=== PATIENT | female | born 1950 | race Caucasian/White ===

== ENCOUNTER 2016-03-13 06:57 | Inpatient (IN) | payer OTHER ==
[2016-03-03 13:51] VITALS: BMI 27.0
--- NOTE | 2016-03-03 14:28 | PAT Medication Instructions ---
Service Date Mar 03, 2016. Current Home Medication List Albuterol Sulfate (Proair Hfa), 2 PUFFS INH QID PRN for SOB/Wheezing Ascorbic Acid (Vitamin C), 500 MG PO HS Atorvastatin (Atorvastatin Calcium), 10 MG PO HS Benzonatate (Benzonatate), 200 MG PO TID PRN for Cough Budesonide (Inhalation) (Pulmicort), 1 ML NEB BID Cholecalciferol (Vitamin D), 1,000 INTER.UNIT PO HS Cholecalciferol (Vitamin D3), 1 TAB PO QAM Furosemide (Furosemide), 20 MG PO QAM Gabapentin (Neurontin), 300 MG PO TID Guaif/Pse/Codeine (Cheratussin DAC 30-10-100 mg/5Ml), 5 ML PO TID PRN for Cough Ipratropium-Albuterol (Duoneb), 3 ML INH QID Lorazepam (Lorazepam), 1 MG PO TID PRN for Anxiety Nystatin (Nystatin Suspension), 5 ML PO QID PRN for Thrush Oxygen (Oxygen), 2 LITERS NA CONTINOUS Pantoprazole (Pantoprazole Sodium), 40 MG PO BID Potassium Ext Rel (Klor-Con), 20 MEQ PO QAM Ranitidine HCl (Ranitidine HCl), 150 MG PO BID Roflumilast (Daliresp), 1 TAB PO QAM Sertraline HCl (Sertraline HCl), 50 MG PO HS Tiotropium [place]-Olodaterol (Stiolto Respimat 2.5-2.5 Mcg/Act), Unknown Dose PO DAILY Tramadol (Ultram), 50 MG PO Q6H PRN for Pain Medication Instructions For Your Scheduled Surgery - Hold the following medications the morning of surgery: Potassium Ext Rel (Klor-Con), 20 MEQ PO QAM Nystatin (Nystatin Suspension), 5 ML PO QID PRN for Thrush Guaif/Pse/Codeine (Cheratussin DAC 30-10-100 mg/5Ml), 5 ML PO TID PRN for Cough Furosemide (Furosemide), 20 MG PO QAM Cholecalciferol (Vitamin D3), 1 TAB PO QAM Benzonatate (Benzonatate), 200 MG PO TID PRN for Cough - Take the following medications the morning of surgery with a sip of water: Tiotropium De [place]-Olodaterol (Stiolto Respimat 2.5-2.5 Mcg/Act), Unknown Dose PO DAILY Tramadol (Ultram), 50 MG PO Q6H PRN for Pain (can take up to four hours prior to surgery) Roflumilast (Daliresp), 1 TAB PO QAM Ranitidine HCl (Ranitidine HCl), 150 MG PO BID Pantoprazole (Pantoprazole Sodium), 40 MG PO BID. Oxygen (Oxygen), 2 LITERS NA CONTINOUS Lorazepam (Lorazepam), 1 MG PO TID PRN for Anxiety Ipratropium-Albuterol (Duoneb), 3 ML INH QID Gabapentin (Neurontin), 300 MG PO TID Budesonide (Inhalation) (Pulmicort), 1 ML NEB BID Albuterol Sulfate (Proair Hfa), 2 PUFFS INH QID PRN for SOB/Wheezing (bring with you to hospital on day of surgery) - Take the following medications as scheduled the night before surgery: Tramadol (Ultram), 50 MG PO Q6H PRN for Pain Sertraline HCl (Sertraline HCl), 50 MG PO HS Ranitidine HCl (Ranitidine HCl), 150 MG PO BID Pantoprazole (Pantoprazole Sodium), 40 MG PO BID Oxygen (Oxygen), 2 LITERS NA CONTINOUS Lorazepam (Lorazepam), 1 MG PO TID PRN for Anxiety Ipratropium-Albuterol (Duoneb), 3 ML INH QID Guaif/Pse/Codeine (Cheratussin DAC 30-10-100 mg/5Ml), 5 ML PO TID PRN for Cough Gabapentin (Neurontin), 300 MG PO TID Cholecalciferol (Vitamin D), 1,000 INTER.UNIT PO HS Budesonide (Inhalation) (Pulmicort), 1 ML NEB BID Benzonatate (Benzonatate), 200 MG PO TID PRN for Cough Ascorbic Acid (Vitamin C), 500 MG PO HS Atorvastatin (Atorvastatin Calcium), 10 MG PO HS Albuterol Sulfate (Proair Hfa), 2 PUFFS INH QID PRN for SOB/Wheezing If you have any questions please call us at [phone] or [phone] ( [place]) or [phone]
[2016-03-03 15:33] LABS: BASO % 0.1 %; BASO ABS # 0.01 K/uL (0-0.2); COMPLETE YES; EOS % 0.9 %; HEMATOCRIT 35.6 % (37-47); IG% 0.3 %; LYMPH % 21.9 %; LYMPH ABS # 2.58 K/uL (1.2-3.4); MEAN CORPUSCULAR HEMOGLOBIN 26.3 pg (25-34); MONO % 5.1 %; NEUT % 71.7 %; PLATELET COUNT 316 K/uL (130-400); RED BLOOD COUNT 4.34 M/uL (4.2-5.4); WHITE BLOOD COUNT 11.76 K/uL (4.8-10.8)
[~2016-03-13] VITALS: Ht 170.2 cm; Wt 78.5 kg
[2016-03-13] VITALS (10 sets, daily range): BP systolic 99–137; BP diastolic 59–81; PULSE 82–98; TEMP 36.4–37.2; O2SAT 94–98; Ht 170.2 cm; Wt 78.5 kg
[~2016-03-13 06:57] MED LIST: ALBU1AER9 INH; ASCO1CAP3 PO; ATV1 PO; BENZ100C7 PO; BUDE1SUS NEB; CEFAZOLIN 2000 MG/60 ML D5W 60 ML IV SCH; CHOL100010 PO; CHOL20007 PO; GABA-113 PO; IPRASOL4 INH; LACTATED RINGER'S 1000ML IV SCH; LPT10 PO; LSX20 PO; NYSS/ PO; OXGN; POTA20TA16 PO; PRT40 PO; RANI150T2 PO; RBTDAC5 PO; ROFL1TAB5 PO; TIOT1AER INH; TRAM-10 PO; ZLF/50 PO
[2016-03-13] MEDS ORDERED: PANT40TA PO (07:37)
[2016-03-13] MEDS ORDERED: MIDAZOLAM HCL 1 MG/ML 2ML VIAL ONE (08:41)
[2016-03-13] MEDS ORDERED: PROPOFOL IV EMULSION 10 MG/ML 20 ML VIAL IV ONE (08:41)
[2016-03-13] MEDS ORDERED: FENTANYL CITRATE INJ 50 MCG/1 ML 2 ML VIAL ONE ×2 (08:41→10:58)
[2016-03-13] MEDS ORDERED: LIDOCAINE HCL 2% 2 ML VIAL (20MG/ML) ONE (08:41)
[2016-03-13] MEDS ORDERED: PROMETHAZINE HCL INJ 6.25 MG in SODIUM CHLORIDE 0.9% 50ML 50 ML IV PRN (08:45)
[2016-03-13] MEDS ORDERED: ATROPINE SULFATE 0.1 MG/ML 5ML SYR IV PRN (08:45)
[2016-03-13] MEDS ORDERED: ONDANSETRON INJ 2 MG/ML 2 ML VIAL IV PRN ×2 (08:45→12:30)
[2016-03-13] MEDS ORDERED: EpHEDrine SULFATE INJ 50 MG/ML AMP IV PRN (08:45)
--- NOTE | 2016-03-13 08:57 | History & Physical Bridge Note ---
H&P Re-Evaluation Bridge Note: I have examined the patient, reviewed the History & Physical and in the interval since the performance of the History & Physical I have noted the following changes of clinical significance: No changes noted
[2016-03-13] MEDS ORDERED: SUCCINYLCHOLINE 100MG/5ML SYR IV ONE (09:18)
[2016-03-13] MEDS ORDERED: ONDANSETRON INJ 2 MG/ML 2 ML VIAL ONE (11:00)
[2016-03-13] MEDS ORDERED: GLYCOPYRROLATE INJ 0.2 MG/ML VIAL ONE (11:00)
[2016-03-13] MEDS ORDERED: DEXAMETHASONE SOD INJ 4 MG/ML VIAL ONE (11:00)
[2016-03-13] MEDS ORDERED: PHENYLEPHRINE 100MCG/ML 5ML SYR ONE (11:00)
[2016-03-13] MEDS ORDERED: NEOSTIGMINE METHYLSULFATE 5 MG/5 ML SYR ONE (11:00)
[2016-03-13] MEDS ORDERED: ORM MISCELLANEOUS MED XX ONE (11:52)
[2016-03-13] MEDS ORDERED: BUPIVACAINE 0.5 % 5 MG/1 ML MPF 30ML VIAL INJ ONE (12:10)
--- NOTE | 2016-03-13 12:25 | [facility] Post Operative Brief Note ---
Immediate Operative Summary Operative Date Mar 13, 2016. Pre-Operative Diagnosis Right upper quadrant pain, chronic nausea Post-Operative Diagnosis Right upper quadrant pain, chronic nausea Procedure(s) Performed Laparoscopic Cholecystectomy; Lysis of extensive adhesions Surgeon Dr. Naig Torres Home Paraprofessional Surgeon(s) none Estimated Blood Loss 15ML Findings See dictation Specimens A. Gallbladder Drains one J_P in the subhepatic space Anesthesia General Complication(s) None Disposition Recovery Room / PACU
[2016-03-13] MEDS ORDERED: NYSTATIN SUSP 500,000 U/5 ML UDC PO PRN (12:30)
[2016-03-13] MEDS ORDERED: ALBUTEROL HFA 8 GM INHALER INH PRN (12:30)
[2016-03-13] MEDS: FENTANYL CITRATE INJ 50 MCG/1 ML 2 ML VIAL IV PRN ×2 (12:52→12:57)
--- NOTE | 2016-03-13 13:25 | OPERATIVE REPORT ---
DATE OF OPERATION: 03/13/2016 PREOPERATIVE DIAGNOSIS: Dysfunctional gallbladder. POSTOPERATIVE DIAGNOSIS: Dysfunctional gallbladder with extensive intra-abdominal adhesions. PROCEDURE: Lysis of extensive intra-abdominal adhesions with laparoscopic cholecystectomy. SURGEON: Dr. Torres. DATE OF PROCEDURE: 03/13/2016. FINDINGS: The patient had had previous exploratory laparotomy a previous MARICRUZ-BSO with scar that extended from the xiphoid tip to the pubic bone. There was extensive adhesion of the omentum and in some areas of the transverse colon to the anterior abdominal wall. These extensive adhesions had to be taken down in order to access the right upper quadrant. The adhesions extended from the left upper quadrant across the midline to the right upper quadrant above the liver. They extended inferiorly at least as far as the umbilicus. The gallbladder was large and boggy. There were multiple adhesions to the wall of the gallbladder, as well as to the edge of the inferior surface of the right lobe and medial segment of the left lobe of the liver. The duodenum was extensively adhesed to the infundibulum and lower portion of the body of the gallbladder. The cystic duct was not dilated. The liver was of normal size and contour. The visible bowel appeared normal. TECHNIQUE: The patient was given a general anesthetic and the area was prepped and draped in the usual sterile fashion. A transverse incision was made in the left upper quadrant/subcostal region, carried down through the subcutaneous tissue to the fascia, which was grasped with 2 Shukri clamps and incised between. The peritoneum was identified, incised and an introducer was placed. The camera was passed, but there were clearly extensive adhesions to the anterior abdominal wall. Some of those I was able to take down using blunt dissection with my finger to establish a small open space and cavity in that area, but I was not able to identify enough of an anterior abdominal wall to be able to place another port for dissection. I then made a vertical incision small above the umbilicus, carried that down through the subcutaneous tissue to the fascia and grasped the fascia with Shukri, incised the fascia and worked inferiorly until the peritoneum was identified and incised. Then I placed a trocar in a blunt fashion there as well. A camera was passed there and I was able to enter a small cavity that had adhesions above it, but I was able to identify the anterior abdominal wall. Then working from that incision using blunt finger dissection to the incision in the left upper quadrant I was able to establish a plane in the connection by dissecting the adhesions off the anterior abdominal wall. That then allowed me to work towards the left side and divide omental adhesions to the anterior abdominal wall. The majority of these were flimsy and I was eventually able to enter a plane on the lateral left side of the abdomen that had no adhesions. After that dissection was completed, I placed another trocar under direct vision through a skin incision on the left side of the abdomen and placed a camera through there, which allowed me then to visualize much better the adhesions to the anterior abdominal wall in the midline. I placed downward traction on the omental adhesions and worked from left to right, taking down the flimsy adhesions on the mid abdomen and then worked superiorly where there were adhesions of the transverse colon. These were slightly more dense. I was able to establish a plane by dissecting the peritoneum away and bringing the peritoneum with the bowel wall for a short distance, which allowed me to then get up about those adhesions and complete that dissection. They were densely adherent to the undersurface of the falciform ligament, but at that point, I was able to visualize the anterior surface of the liver. There were additional adhesions on the right lateral abdomen that had to be taken down with sharp dissection under direct vision meticulously as to ensure that there was no colon involved, but there was not. In doing that, I was able to identify the large body fundus of the gallbladder. I was then able to place another trocar through a right upper quadrant incision that I had previously made and dissected posteriorly, but had not entered the peritoneum with that incision. At that point, I was able to identify the gallbladder and placed upward traction. However, there were dense adhesions of the omentum to the edge of the liver and those had to be taken down working from the falciform ligament over towards the right edge. Those adhesions were thick, but once they were divided, I was then able to elevate the gallbladder and take the remainder of the adhesions off the gallbladder using mostly blunt dissection. In doing so and after positioning the patient and rolling the adhesions inferiorly, it was clear that the duodenum was also adherent to the lower body and infundibular area of the gallbladder. I was able to establish a plane right at the level of the gallbladder with flimsy adhesions that were peeled down and away without using any cautery until the infundibulum was free of the duodenum. I was then able to identify the inferior most portion of the infundibulum and was able to divide additional fatty tissue and connective tissue. That allowed me to elevate the infundibulum and opened the peritoneum and peel it towards the common bile duct. I then the infundibular attachments to the liver on the lateral side allowing better mobility of the infundibulum. I performed a similar dissection on the medial side and in doing so, was able to identify the cystic duct and its junction with the gallbladder. I dissected away connective tissue and lymphatics on the medial wall of the cystic duct, and then was able to establish a plane behind the cystic duct isolating it 360 degrees. That confirmed the junction of the cystic duct and gallbladder. Three clips were placed on the proximal cystic duct, one near the junction with the gallbladder and it was divided. At that point, one of the graspers created a hole in the gallbladder and there was bile that escaped the gallbladder. This was all removed with suction. But that allowed me then to further dissect in the triangle of Calot. The cystic artery was identified, clipped twice proximally and once near the gallbladder and divided. There was an additional tubular structure behind that that was either a large lymphatic or a posterior branch of the artery that was clipped and divided. That then allowed good mobility of the infundibulum and I was able to dissect the gallbladder off the liver using cautery. It was placed into an Endobag and brought out through the upper midline incision. That introducer was replaced and the liver edge was elevated. There was 1 small area of oozing from the gallbladder bed of the liver and this was easily controlled with cautery. The subdiaphragmatic and subhepatic spaces were irrigated and the irrigation was removed. All of the areas of dissection were inspected. There was no bleeding. A 10 mm Jerad-Parson drain was brought out through the right-sided upper introducer site. It had been previously cut to size and was placed in the subhepatic space and secured with a 3-0 nylon at the skin level. The gas was allowed to escape and the introducers were removed. The fascia of the supraumbilical upper midline on the left and the left-sided introducers were closed with interrupted 0 Vicryl and the skin of all of the incisions was then closed with 4-0 Monocryl in either a running or interrupted subcuticular fashion. The skin was anesthetized with 0.5% Marcaine. The skin was cleansed, dried, benzoin placed, Steri-Strips applied. The estimated blood loss was 15 mL. Sponge, needle, and instrument counts were correct prior to closure. The patient tolerated the surgical procedure without complication and was transferred to recovery. I attest to the content of the Intraoperative Record and any orders documented therein. Any exceptio ns are noted below.
[2016-03-13] MEDS ORDERED: IV FLUIDS COMPLETED PRN (13:45)
--- NOTE | 2016-03-13 13:46 | Anesthesiology Progress Note ---
Anesthesia Post Op Note Date & Time Mar 13, 2016 at 13:45 Vital Signs Pain Intensity: 0 Vital Signs Past 12 Hours Date Time Temp Pulse Resp B/P Pulse Ox O2 Delivery O2 Flow Rate FiO2 03/13/16 13:40 36.5 89 16 112/66 97 Nasal Cannula 4 03/13/16 13:30 36.5 89 16 111/69 96 Nasal Cannula 4 03/13/16 13:20 36.5 91 16 115/78 100 Nasal Cannula 4 03/13/16 13:10 36.5 95 16 124/75 99 Nasal Cannula 4 03/13/16 13:00 92 16 112/72 96 Nasal Cannula 4 03/13/16 12:50 94 16 126/72 100 Nasal Cannula 4 03/13/16 12:40 93 16 124/83 100 Mask 15 03/13/16 12:30 92 16 152/85 100 Mask 15 03/13/16 12:23 37.5 100 16 135/82 100 Mask 15 03/13/16 07:42 37.2 98 20 137/81 94 Room Air Notes Mental Status: alert / awake / arousable, participated in evaluation Pt Amnestic to Procedure: Yes Nausea / Vomiting: adequately controlled Pain: adequately controlled Airway Patency, RR, SpO2: stable & adequate BP & HR: stable & adequate Hydration State: stable & adequate Anesthetic Complications: no major complications apparent
[2016-03-13] MEDS: MoRPHine SULFATE 4 MG/ML 1 ML CARP\\VIAL IV PRN ×3 (15:31→21:14)
[2016-03-13] MEDS: SODIUM CHLORIDE 0.9% 1000ML 1,000 ML IV SCH (15:32)
[2016-03-13] MEDS: ALBUT/IPRATROP 3MG/0.5MG NEB 3 ML VIAL INH SCH ×2 (16:30→20:11)
[2016-03-13] MEDS: OXYCODONE/ACETAMINOPHEN 5-325 TAB PO PRN (19:30)
[2016-03-13] MEDS: BUDESONIDE 0.5 MG/2 ML VIAL (PULMICORT) INH SCH (20:11)
[2016-03-13] MEDS: PANTOprazole SOD 40 MG TAB PO SCH (20:22)
[2016-03-13] MEDS: GABAPENTIN 300 MG CAP PO SCH (20:22)
[2016-03-13] MEDS: SERTRALINE HCL 50 MG TAB PO SCH (20:22)
[2016-03-13] MEDS: ATORVASTATIN 10 MG TAB PO SCH (20:22)
[2016-03-13] MEDS: RANITIDINE HCL 150 MG TAB PO SCH (20:22)
[2016-03-14] VITALS (12 sets, daily range): BP systolic 94–106; BP diastolic 56–66; PULSE 79–96; TEMP 36.7–36.9; O2SAT 83–97
[2016-03-14] MEDS: MoRPHine SULFATE 4 MG/ML 1 ML CARP\\VIAL IV PRN ×2 (01:25→19:07)
[2016-03-14] MEDS: OXYCODONE/ACETAMINOPHEN 5-325 TAB PO PRN ×3 (08:00→21:08)
[2016-03-14] MEDS: BUDESONIDE 0.5 MG/2 ML VIAL (PULMICORT) INH SCH ×2 (08:09→20:18)
[2016-03-14] MEDS: ALBUT/IPRATROP 3MG/0.5MG NEB 3 ML VIAL INH SCH ×4 (08:09→20:18)
--- NOTE | 2016-03-14 08:09 | Anesthesiology Progress Note ---
Anesthesia Post Op Note Date & Time Mar 14, 2016 at 08:08 Vital Signs Pain Intensity: 8.0 Vital Signs Past 12 Hours Date Time Temp Pulse Resp B/P Pulse Ox O2 Delivery O2 Flow Rate FiO2 03/14/16 07:09 36.9 82 16 98/61 96 Nasal Cannula 3.0 03/14/16 03:35 36.7 79 16 94/56 97 Nasal Cannula 3.0 03/13/16 23:35 Nasal Cannula 3.0 03/13/16 22:56 36.8 82 16 99/59 96 Nasal Cannula 3.0 03/13/16 20:11 92 16 98 Nasal Cannula 3.0 Notes Mental Status: alert / awake / arousable, participated in evaluation Pt Amnestic to Procedure: Yes Nausea / Vomiting: adequately controlled Pain: adequately controlled Airway Patency, RR, SpO2: stable & adequate BP & HR: stable & adequate Hydration State: stable & adequate Anesthetic Complications: no major complications apparent
[2016-03-14] MEDS: RANITIDINE HCL 150 MG TAB PO SCH ×2 (09:33→21:07)
[2016-03-14] MEDS: CHOLECALCIFEROL 1000 INTER.UNIT TAB PO SCH (09:33)
[2016-03-14] MEDS: PANTOprazole SOD 40 MG TAB PO SCH ×2 (09:34→21:07)
[2016-03-14] MEDS: GABAPENTIN 300 MG CAP PO SCH ×3 (09:34→21:07)
[2016-03-14] MEDS: POTASSIUM CHLORIDE 20 MEQ TABCR PO SCH (09:35)
[2016-03-14] MEDS: ROFLUMILAST 500 MCG TAB PO SCH (09:35)
[2016-03-14] MEDS: FUROSEMIDE 20 MG TAB PO SCH (09:37)
[2016-03-14] MEDS: LORAZEPAM 1 MG TAB PO PRN ×2 (09:39→21:07)
--- NOTE | 2016-03-14 11:02 | Surgery Progress Note ---
Surgery Progress Note Date of Service Mar 14, 2016. Subjective Post OP Day: 1 + pain controlled, No bowel movement, No flatus, No nausea, No vomiting Objective Vital Signs: Date Time Temp Pulse Resp B/P Pulse Ox O2 Delivery O2 Flow Rate FiO2 03/14/16 09:37 100/60 03/14/16 08:10 89 18 89 Room Air 03/14/16 07:09 36.9 82 16 98/61 96 Nasal Cannula 3.0 03/14/16 03:35 36.7 79 16 94/56 97 Nasal Cannula 3.0 03/13/16 23:35 Nasal Cannula 3.0 03/13/16 22:56 36.8 82 16 99/59 96 Nasal Cannula 3.0 03/13/16 20:11 92 16 98 Nasal Cannula 3.0 03/13/16 19:08 36.6 85 18 107/64 96 Nasal Cannula 3.0 03/13/16 17:30 36.4 86 18 105/72 96 Nasal Cannula 3.0 03/13/16 16:35 88 16 97 Nasal Cannula 3.0 03/13/16 16:30 37.1 91 17 104/64 94 Nasal Cannula 3.0 03/13/16 16:00 Nasal Cannula 2.0 03/13/16 15:30 36.8 89 17 109/71 94 Nasal Cannula 3.0 03/13/16 15:00 36.4 85 17 115/75 97 Nasal Cannula 3.0 03/13/16 14:50 36.9 90 124/73 95 Nasal Cannula 3.0 03/13/16 14:49 Nasal Cannula 3.0 03/13/16 14:10 36.5 88 16 111/76 98 Nasal Cannula 4 03/13/16 13:55 36.5 90 16 120/71 98 Nasal Cannula 4 03/13/16 13:40 36.5 89 16 112/66 97 Nasal Cannula 4 03/13/16 13:30 36.5 89 16 111/69 96 Nasal Cannula 4 03/13/16 13:20 36.5 91 16 115/78 100 Nasal Cannula 4 03/13/16 13:10 36.5 95 16 124/75 99 Nasal Cannula 4 03/13/16 13:00 92 16 112/72 96 Nasal Cannula 4 03/13/16 12:50 94 16 126/72 100 Nasal Cannula 4 03/13/16 12:40 93 16 124/83 100 Mask 15 03/13/16 12:30 92 16 152/85 100 Mask 15 03/13/16 12:23 37.5 100 16 135/82 100 Mask 15 Physical Exam: DELMIS drainage (45 cc yesterday, 10 cc last shift, serosanguinous) Abdomen: non distended, + abnormal bowel sounds (few) Incision(s): clean, dry, no drainage Assessment & Plan S/P laparoscopic cholecystectomy Doing well Advance diet
[2016-03-14] MEDS: SODIUM CHLORIDE 0.9% 1000ML 1,000 ML IV SCH (13:34)
[2016-03-14] MEDS: ATORVASTATIN 10 MG TAB PO SCH (21:07)
[2016-03-14] MEDS: SERTRALINE HCL 50 MG TAB PO SCH (21:07)
[2016-03-15] VITALS (9 sets, daily range): BP systolic 100–120; BP diastolic 65–74; PULSE 86–110; TEMP 36.7–36.9; O2SAT 90–98
[2016-03-15] MEDS: MoRPHine SULFATE 4 MG/ML 1 ML CARP\\VIAL IV PRN ×2 (06:02→21:59)
[2016-03-15] MEDS: OXYCODONE/ACETAMINOPHEN 5-325 TAB PO PRN ×2 (07:23→13:05)
--- NOTE | 2016-03-15 07:37 | Surgery Progress Note ---
Surgery Progress Note Date of Service Mar 15, 2016. Subjective + complaints (buring in upper midline), + diet (tolerated regular diet), No bowel movement, No flatus, No nausea, No vomiting Objective Vital Signs: Date Time Temp Pulse Resp B/P Pulse Ox O2 Delivery O2 Flow Rate FiO2 03/15/16 00:10 Nasal Cannula 2.0 03/14/16 23:14 36.9 96 15 102/62 96 Nasal Cannula 2.0 03/14/16 20:19 96 16 96 Nasal Cannula 2.0 03/14/16 19:15 94 Nasal Cannula 2.0 03/14/16 19:00 83 Room Air 03/14/16 16:01 86 16 97 Nasal Cannula 2.0 03/14/16 15:30 Room Air 03/14/16 15:14 36.8 87 16 106/66 93 Room Air 03/14/16 11:31 36.7 87 16 98/56 90 Room Air 03/14/16 11:13 94 18 97 Nasal Cannula 3.0 03/14/16 09:37 100/60 03/14/16 08:10 89 18 89 Room Air 03/14/16 07:55 Nasal Cannula 3.0 Abdomen: soft, + abnormal bowel sounds (few), + tenderness (incisional only) Assessment & Plan S/P laparoscopic cholecystectomy Burning upper abdomen, start Protonix Constipation, Start MOM Ambulate
[2016-03-15] MEDS: BUDESONIDE 0.5 MG/2 ML VIAL (PULMICORT) INH SCH ×2 (08:06→20:48)
[2016-03-15] MEDS: ALBUT/IPRATROP 3MG/0.5MG NEB 3 ML VIAL INH SCH ×4 (08:06→20:48)
[2016-03-15] MEDS ORDERED: NURSING VERBAL MED ORDER ONE (08:15)
[2016-03-15] MEDS: ROFLUMILAST 500 MCG TAB PO SCH (08:30)
[2016-03-15] MEDS ORDERED: GUAIFENESIN SUGAR FREE 200 MG/10 ML UDC PO PRN (08:30)
[2016-03-15] MEDS: FUROSEMIDE 20 MG TAB PO SCH (08:31)
[2016-03-15] MEDS: GABAPENTIN 300 MG CAP PO SCH ×3 (08:31→20:49)
[2016-03-15] MEDS: POTASSIUM CHLORIDE 20 MEQ TABCR PO SCH (08:31)
[2016-03-15] MEDS: CHOLECALCIFEROL 1000 INTER.UNIT TAB PO SCH (08:32)
[2016-03-15] MEDS: PANTOprazole SOD 40 MG TAB PO SCH (08:35)
[2016-03-15] MEDS: MAGNESIUM HYDROXIDE SUSP 30 ML UDC PO PRN (08:36)
[2016-03-15] MEDS: LORAZEPAM 1 MG TAB PO PRN ×2 (08:38→20:51)
[2016-03-15] MEDS: RANITIDINE HCL 150 MG TAB PO SCH ×2 (09:28→20:49)
[2016-03-15] MEDS: GUAIFENESIN SUGAR FREE 200 MG/10 ML UDC PO PRN ×2 (09:29→17:53)
[2016-03-15] MEDS: SODIUM CHLORIDE 0.9% 1000ML 1,000 ML IV SCH (12:46)
[2016-03-15] MEDS: ATORVASTATIN 10 MG TAB PO SCH (20:49)
[2016-03-15] MEDS: SERTRALINE HCL 50 MG TAB PO SCH (20:49)
[2016-03-16] VITALS (10 sets, daily range): BP systolic 103–117; BP diastolic 67–69; PULSE 86–97; TEMP 36.8–37.6; O2SAT 84–99
[2016-03-16] MEDS: OXYCODONE/ACETAMINOPHEN 5-325 TAB PO PRN ×2 (05:59→23:29)
[2016-03-16] MEDS: GUAIFENESIN SUGAR FREE 200 MG/10 ML UDC PO PRN ×2 (06:28→20:36)
[2016-03-16] MEDS: BUDESONIDE 0.5 MG/2 ML VIAL (PULMICORT) INH SCH ×2 (07:56→20:15)
[2016-03-16] MEDS: ALBUT/IPRATROP 3MG/0.5MG NEB 3 ML VIAL INH SCH ×4 (07:57→16:03)
[2016-03-16] MEDS: ROFLUMILAST 500 MCG TAB PO SCH (08:30)
[2016-03-16] MEDS: PANTOprazole SOD 40 MG TAB PO SCH (08:31)
[2016-03-16] MEDS: POTASSIUM CHLORIDE 20 MEQ TABCR PO SCH (08:31)
[2016-03-16] MEDS: GABAPENTIN 300 MG CAP PO SCH ×3 (08:31→20:36)
[2016-03-16] MEDS: CHOLECALCIFEROL 1000 INTER.UNIT TAB PO SCH (08:32)
[2016-03-16] MEDS: RANITIDINE HCL 150 MG TAB PO SCH ×2 (08:32→20:36)
[2016-03-16] MEDS: FUROSEMIDE 20 MG TAB PO SCH (08:33)
[2016-03-16] MEDS: LORAZEPAM 1 MG TAB PO PRN ×2 (08:35→20:36)
[2016-03-16] MEDS: SODIUM CHLORIDE 0.9% 1000ML 1,000 ML IV SCH (12:30)
--- NOTE | 2016-03-16 13:45 | Surgery Progress Note ---
Surgery Progress Note Date of Service Mar 16, 2016. Subjective Post OP Day: 3 + diet (tolerated diet), + flatus (small amount), No bowel movement, No nausea, No vomiting Objective Vital Signs: Date Time Temp Pulse Resp B/P Pulse Ox O2 Delivery O2 Flow Rate FiO2 03/16/16 12:08 36.9 94 12 110/68 97 Nasal Cannula 2.0 03/16/16 11:28 92 20 84 Room Air 03/16/16 08:32 110/67 03/16/16 07:58 87 16 90 Nasal Cannula 2.0 03/16/16 07:45 Nasal Cannula 2.0 03/16/16 07:11 37.6 94 16 103/67 92 Room Air 03/15/16 23:27 Nasal Cannula 2.0 03/15/16 23:26 36.9 99 16 111/72 96 Nasal Cannula 2.0 03/15/16 20:48 110 20 93 Room Air 03/15/16 15:32 95 16 96 Nasal Cannula 2.0 03/15/16 15:23 36.7 89 18 100/65 97 Nasal Cannula 2.0 03/15/16 15:15 Room Air Abdomen: normal bowel sounds, non tender, non distended, soft Incision(s): clean, dry, intact, no erythema Assessment & Plan S/P laparoscopic cholecystectomy Burning upper abdomen resolved, start Protonix Constipation, no bm as yet, more MOM Ambulate
[2016-03-16] MEDS: MAGNESIUM HYDROXIDE SUSP 30 ML UDC PO PRN (13:50)
[2016-03-16] MEDS ORDERED: NURSING VERBAL MED ORDER ONE (14:00)
[2016-03-16] MEDS: SERTRALINE HCL 50 MG TAB PO SCH (20:36)
[2016-03-16] MEDS: ATORVASTATIN 10 MG TAB PO SCH (20:36)
[2016-03-16] MEDS: MoRPHine SULFATE 4 MG/ML 1 ML CARP\\VIAL IV PRN (20:42)
[2016-03-17 07:07] VITALS: BP 128/68; PULSE 83; TEMP 36.7; O2SAT 100
[2016-03-17 07:14] VITALS: PULSE 93; O2SAT 100
[2016-03-17] MEDS: BUDESONIDE 0.5 MG/2 ML VIAL (PULMICORT) INH SCH (07:14)
[2016-03-17] MEDS: ALBUT/IPRATROP 3MG/0.5MG NEB 3 ML VIAL INH SCH ×3 (07:14→16:00)
[2016-03-17] MEDS: MAGNESIUM HYDROXIDE SUSP 30 ML UDC PO PRN (07:30)
[2016-03-17] MEDS: GUAIFENESIN SUGAR FREE 200 MG/10 ML UDC PO PRN (07:32)
[2016-03-17] MEDS: POTASSIUM CHLORIDE 20 MEQ TABCR PO SCH (08:46)
[2016-03-17] MEDS: ROFLUMILAST 500 MCG TAB PO SCH (08:46)
[2016-03-17] MEDS: PANTOprazole SOD 40 MG TAB PO SCH (08:47)
[2016-03-17] MEDS: FUROSEMIDE 20 MG TAB PO SCH (08:47)
[2016-03-17] MEDS: GABAPENTIN 300 MG CAP PO SCH ×2 (08:47→13:50)
[2016-03-17] MEDS: RANITIDINE HCL 150 MG TAB PO SCH (08:48)
[2016-03-17] MEDS: CHOLECALCIFEROL 1000 INTER.UNIT TAB PO SCH (08:48)
[2016-03-17] MEDS: LORAZEPAM 1 MG TAB PO PRN (08:49)
[2016-03-17] MEDS: OXYCODONE/ACETAMINOPHEN 5-325 TAB PO PRN (08:50)
[2016-03-17 11:12] VITALS: PULSE 87; O2SAT 92
[2016-03-17 15:09] VITALS: BP 113/69; PULSE 87; TEMP 36.5; O2SAT 96
[2016-03-17 16:00] VITALS: PULSE 93; O2SAT 91
--- NOTE | 2016-03-17 16:44 | Surgery Progress Note ---
Surgery Progress Note Date of Service Mar 17, 2016. Subjective + bowel movement, + diet (tolerating regular diet), + flatus, No nausea, No vomiting Objective Vital Signs: Date Time Temp Pulse Resp B/P Pulse Ox O2 Delivery O2 Flow Rate FiO2 03/17/16 16:00 93 18 91 Room Air 03/17/16 15:09 36.5 87 18 113/69 96 Room Air 03/17/16 11:12 87 18 92 Room Air 03/17/16 07:35 Nasal Cannula 2.0 03/17/16 07:14 93 18 100 Nasal Cannula 2.0 03/17/16 07:07 36.7 83 16 128/68 100 2.0 03/16/16 23:15 Nasal Cannula 2.0 03/16/16 23:04 36.9 93 16 117/69 93 Nasal Cannula 2.0 03/16/16 20:15 97 20 99 Nasal Cannula 2.0 Physical Exam: DELMIS drainage (15 cc yesterday, 5 cc last shift) Abdomen: normal bowel sounds, non tender, non distended, soft Incision(s): clean, dry, intact, no erythema, no drainage Assessment & Plan S/P laparoscopic cholecystectomy Constipation resolved, feels better after bm Can D/C to home Instructions discussed
--- NOTE | 2016-03-17 16:46 | Discharge Instructions ---
Discharge Instructions Admission Reason for Admission: Right Upper Quadrant Abdominal Pain, nausea Discharge Discharge Diagnosis / Problem: Same Discharge Goals Goal(s): Decrease discomfort Activity Recommendations Activity Limitations: per Instructions/Follow-up section Lifting Limitations: no more than 10 pounds Shower/Bathe: tomorrow (Shower only) . Instructions / Follow-Up Instructions / Follow-Up Post-Surgical ~ Discharge Instructions Activity Recommendations: - lifting limitation: (10 pounds for 2 weeks), - exercise/sex/sports limit: (nonstrenuous for 2 weeks), - driving or machine use limit: (none for 1 week), - Shower/bathe limit: (may shower beginning tomorrow) Diet: - Resume previous diet SPECIAL CARE INSTRUCTIONS: - May shower in 24 hours. Let water run over area and pat dry. - Leave steri strips on for one week. - Call the surgeon's office with any questions or concerns - - (ex. temperature higher than 101 degrees F, excessive bleeding or pain). MEDICATIONS: - Resume previous medications unless instructed otherwise by your surgeon. - Ibuprofen 600 mg every 6 hours with food - Percocet 1 every 4 hours, as needed for pain FOLLOW UP VISIT: - If not already scheduled, please call the office to schedule a two week follow-up appointment. Office number Current Hospital Diet Patient's current hospital diet: Regular Diet Discharge Diet Recommended Diet: Regular Diet Procedures Procedures Performed: Laparoscopic Cholecystectomy; Lysis of extensive adhesions Pending Studies Studies pending at discharge: no Medical Emergencies . Who to Call and When: Medical Emergencies: If at any time you feel your situation is an emergency, please call 911 immediately. . Non-Emergent Contact Non-Emergency issues call your: Primary Care Provider, Surgeon Call Non-Emergent contact if: your pain is worsening, wound has increased redness, wound has increased pain . "Provider Documentation" section prepared by Nagi Torres. VTE Core Measure Inpt VTE Proph given/why not?: Treatment not indicated
[2016-03-17 17:58] VITALS: BP 113/69; PULSE 93; TEMP 36.5; O2SAT 91
--- NOTE | 2016-03-20 08:47 | EDITING REQUIRED CODING QUERY ---
PATHOLOGY Dr. Torres To promote full compliance with coding requirements relating to patient care, physician participation is requested in all cases of pinked edge sewing machine operator uncertainty. Please assist us with the question(s) below: Please review the Pathology report and please document any relevant diagnosis(es) below: Diagnosis(es): Chronic cholecystitis Thank you for your time, LYNN Sanchez, AUTOMOBILE RENTAL REPRESENTATIVE
--- NOTE | 2016-03-21 00:59 | DISCHARGE SUMMARY ---
PRINCIPAL DIAGNOSIS: Chronic cholecystitis. SECONDARY DIAGNOSES: Pneumonia, cervical disc disease, congenital cystic kidney disease, COPD, hiatal hernia, diverticulosis, hypertension, hyperlipidemia, irritable bowel syndrome. PRINCIPAL PROCEDURE: Laparoscopic appendectomy with extensive lysis of adhesions. OTHER PROCEDURES: None. HISTORY AND PHYSICAL: As per H\T\P on chart. BRIEFLY: This is a 65-year-old female, who had presented to the office on referral with a complaint of constant nausea that had been going on for about 2 months. She is unsure as to its origin. There was occasional vomiting. She had had 2 days with pain in the right subcostal region, but that was the only episode. She had had a few other episodes over that timeframe, but they were much less severe. Her bowels were moving with regularity and there was no dysuria or hematuria. She had an ultrasound of the right upper quadrant that demonstrated a normal gallbladder. There was no cholelithiasis. She had a HIDA scan with pharmacologic stimulation of the gallbladder, showing an ejection fraction of 6%. I had encouraged her to have an EUS and gastric emptying. She initially agreed, but she then said that she was not interested in having those procedures performed. The decision was to perform a laparoscopic cholecystectomy. On exam, her abdomen was soft, nondistended and nontender. HOSPITAL COURSE: The patient was taken to the operating room, where a laparoscopic cholecystectomy was performed. She had had previous extensive abdominal surgery and extensive lysis of adhesions was necessary to simply get to the liver and the gallbladder; however, I was eventually able to do that. She also had extensive adhesions to the gallbladder itself. The procedure was able to be completed laparoscopically. She had a large boggy gallbladder, but her cystic duct was normal. The liver also appeared normal. Because of the extensive lysis of adhesions, it was decided to admit the patient following the surgery. Her pain was controlled on postoperative day #1. I advanced her diet slowly due to the extensive adhesiolysis, some of which included bowel. She also had difficulty in passing her bowels. Milk of magnesia was administered. She did not develop flatus until postoperative day #3 and had a bowel movement later that day. She was taking a regular diet by postoperative day #4, as well. She was discharged to home on postoperative day #4. She had remained afebrile. Her discharge medications included albuterol, ascorbic acid, atorvastatin, budesonide, vitamin D, vitamin D3, Neurontin, DuoNeb, lorazepam, nystatin, Protonix, Calor, ranitidine, Daliresp, tramadol, sertraline and the Percocet and ibuprofen for pain. She was to follow up with me in 2 weeks.
[2016-06-06] MEDS ORDERED: ATOR10TA88 PO (08:45)
[2016-07-15] MEDS ORDERED: PRED10TA PO (15:15)
[2016-07-15] MEDS ORDERED: HYCUDL5 PO (15:45)
[2016-11-19] MEDS ORDERED: HYCUDL5 PO (14:00)
[2016-11-19] MEDS ORDERED: PRED10TA PO (14:00)
[2016-11-19] MEDS ORDERED: DXY100 PO (14:00)
[2016-11-19] MEDS ORDERED: SENN8.6T7 PO (14:00)
== END 2016-03-17 18:55 | disposition home health service (06) | DRG 418 ==
LOC: ENRESERVTM → ENRESERVDT → C.ACU 06:57 → C.MSN 12:33 → OBSVTOIN 03-16 14:49
PROVIDERS: ADMIT Surgery; ATTEND Surgery
PROC: 0DNW4ZZ Release Peritoneum, Percutaneous Endoscopic Approach (ICD-10-PCS; principal; 2016-03-13 09:00)
PROC: 0DNL4ZZ Release Transverse Colon, Percutaneous Endoscopic Approach (ICD-10-PCS; principal; 2016-03-13 09:00)
PROC: 0FN44ZZ Release Gallbladder, Percutaneous Endoscopic Approach (ICD-10-PCS; principal; 2016-03-13 09:00)
PROC: 0DNS4ZZ (ICD-10-PCS; principal; 2016-03-13 09:00)
PROC: 0FT44ZZ Resection of Gallbladder, Percutaneous Endoscopic Approach (ICD-10-PCS; principal; 2016-03-13 09:00)
DX: K81.1 Chronic cholecystitis (principal); Q61.9 Cystic kidney disease, unspecified; K82.8 Other specified diseases of gallbladder; R11.0 Nausea; K66.0 Peritoneal adhesions (postprocedural) (postinfection); K59.00 Constipation, unspecified; J45.909 Unspecified asthma, uncomplicated; J44.9 Chronic obstructive pulmonary disease, unspecified; G47.33 Obstructive sleep apnea (adult) (pediatric); I10 Essential (primary) hypertension; E78.2 Mixed hyperlipidemia; K21.9 Gastro-esophageal reflux disease without esophagitis; K58.9 Irritable bowel syndrome, unspecified; M81.0 Age-related osteoporosis without current pathological fracture; M19.90 Unspecified osteoarthritis, unspecified site; G62.9 Polyneuropathy, unspecified; F41.9 Anxiety disorder, unspecified; F32.9 Major depressive disorder, single episode, unspecified; Z99.81 Dependence on supplemental oxygen; Z87.891 Personal history of nicotine dependence; Z86.010 Personal history of colon polyps; Z79.51 Long term (current) use of inhaled steroids; Z79.891 Long term (current) use of opiate analgesic; Z79.899 Other long term (current) drug therapy

== ENCOUNTER → 2016-04-28 | Outpatient (CLI) | payer OTHER ==
[~2016-04-28] MED LIST changes: +ALBU18002 INH; +ATOR10TA88 PO; +AZIT500T26 PO; -BENZ100C7 PO; -CEFAZOLIN 2000 MG/60 ML D5W 60 ML IV SCH; +CHOL1000 PO; +CHOL2000 PO; +DXY100 PO; +HYCUDL5 PO; -LACTATED RINGER'S 1000ML IV SCH; +ONDA4TAB46 PO; +PANT40TA PO; +PRED10TA PO; +PRED20TA2 PO; -PRT40 PO; -RBTDAC5 PO; +SENN8.6T7 PO; +SERT50TA PO; +TIZA1CAP2 PO; +VTMD1000 PO
[2016-04-28 14:12] LABS: INFLUENZA A PCR Neg for Influ A (NEG); INFLUENZA B PCR Neg for Influ B (NEG)
== END | disposition home or self-care (01) ==
LOC: C.LAB 10:57
PROVIDERS: ATTEND Internal Medicine Pulmonary Disease
DX: R05 Cough (principal)

== ENCOUNTER → 2016-05-24 | Outpatient (CLI) | payer OTHER ==
--- NOTE | 2016-05-24 10:44 | DIAGNOSTIC IMAGING REPORT ---
SINUS CT WITHOUT CONTRAST CLINICAL HISTORY: Cough. Post nasal drip. COPD. COMPARISON STUDY: MRI of the brain October 22, 2015. Technique: Helical axial images of the sinuses were obtained without IV contrast. Coronal reformats were viewed. CT DOSE: 878.82 mGy.cm FINDINGS: Visualized portions of the intracranial contents are unremarkable on this unenhanced exam. There are several opacified left mastoid air cells. There is no fluid within the middle ears. Ossicles are intact. Orbits are unremarkable. The left maxillary sinus is diminutive. There are secretions and mild mucosal thickening within the left maxillary sinus. There is mild polypoid mucosal thickening of the right maxillary sinus. There is minimal mucosal thickening of the remainder of the sinuses. The left ostiomeatal complex is occluded by mucosal thickening. There is no air-fluid levels. There is no bony destruction. Leftward deviation of the nasal septum is noted. No mass is identified within the nasal cavity or the sinuses. IMPRESSION: 1. Small amount of secretions and mild polypoid mucosal thickening within the maxillary sinuses. No air-fluid levels. No bony destruction. 2. Occluded left ostiomeatal complex due to mucosal thickening. 3. Moderate leftward deviation of the nasal septum. 4. No bony destruction. Electronically signed by: Roni Ragland M.D. 05/24/2016 10:43 AM Dictated Date/Time: 05/24/2016 10:38 AM
--- NOTE | 2016-05-24 10:45 | DIAGNOSTIC IMAGING REPORT ---
CT SCAN OF THE CHEST WITHOUT IV CONTRAST CLINICAL HISTORY: Cough. Sinusitis. COPD. COMPARISON STUDY: Chest CT dated 01/22/2016. Chest x-ray dated 02/19/2016. TECHNIQUE: CT scan of the thorax was performed from the thoracic inlet to the upper abdomen. Images are reviewed in the axial, sagittal, and coronal planes. IV contrast was not administered for this examination. FINDINGS: Thyroid: Atrophic. Thoracic aorta: There is mild ectasia of the ascending thoracic aorta which measures up to 3.9 cm in diameter. The remainder of the thoracic aorta is normal in caliber. The arch demonstrates standard 3-vessel anatomy. Heart: The heart is normal in size and without pericardial effusion. There are scattered coronary artery calcifications. There is lipomatous hypertrophy of the interatrial septum. The pulmonary trunk is mildly dilated measuring 3.4 cm in transverse diameter. This suggests pulmonary artery hypertension. Lungs and pleural spaces: There is no airspace consolidation or pleural effusion. The trachea and central airways are clear. There is a 9 mm right middle lobe pulmonary nodule seen on image #193. There are numerous (greater than 20) additional tiny pulmonary nodules within upper lobe predominance measuring 2 - 3 mm. Mediastinum: There is no mediastinal lymphadenopathy. Kathleen: Not well assessed without IV contrast. Axillae: There is no axillary lymphadenopathy. Upper abdomen: Cholecystectomy clips are noted. A tiny hiatal hernia is identified. There is glandular atrophy of the partially imaged pancreas. Skeletal structures: The skeletal structures are osteopenic. No lytic or blastic bony lesions are seen. IMPRESSION: 1. There is no airspace consolidation or pleural effusion. 2. There is a 9 mm right middle lobe pulmonary nodule. This should be followed as per the Fleischner criteria. See below. 3. There are numerous additional 2-3 mm pulmonary nodules with an upper lobe predominance. These are of low suspicion but colostomy reassessed at follow-up. 4. No mediastinal lymphadenopathy is identified. 5. There is unchanged ectasia of the ascending thoracic aorta which measures up to 3.9 cm in diameter. 6. Additional findings as above. Please refer to below summary of Fleischner criteria recommendations for follow-up of incidental CT nodules (Tee Morris, Guidelines for management of small pulmonary nodules detected on CT scans: A statement from the Fleischner Society, Radiology 237: [phone].) SOLID NODULES Solitary nodule size: <6 mm * low risk patients: no follow-up needed * high risk patients: optional CT at 12 months Solitary nodule size: 6-8 mm * low risk patients: follow-up at 6-12 months, then consider further follow-up at 18-24 months * high risk patients: initial follow-up CT at 6-12 months and then at 18-24 months if no change Solitary nodule size: >8 mm * either low or high risk patients - consider follow-up CT at 3 months, and/or CT-PET, and/or biopsy Multiple nodules size: <6 mm * low risk patients: no routine follow-up * high risk patients: optional CT at 12 months Multiple nodules size: 6-8 mm * low risk patients: follow-up at 3-6 months, then consider further follow-up at 18-24 months * high risk patients: follow-up at 3-6 months, then at 18-24 months if no change Multiple nodules size: >8 mm * low risk patients: follow-up at 3-6 months, then consider further follow-up at 18-24 months * high risk patients: follow-up at 3-6 months, then at 18-24 months if no change Note: newly detected indeterminate nodule in persons 35 years of age or older. * low risk patients: minimal or absent history of smoking and/or other known risk factors * high risk patients: history of smoking or of other known risk factors (e.g. first degree relative with lung cancer, or exposure to asbestos, radon, uranium) * if a nodule up to 8 mm is partly solid or is ground glass further follow-up is required after 24 months to exclude possible slow growing adenocarcinoma (MARY) SUBSOLID NODULES Solitary pure ground-glass nodule * nodule size <6 mm - no CT follow-up required * nodule size >=6 mm - follow-up CT at 6-12 months, then every 2 years until 5 years Solitary part-solid nodule * nodule size <6 mm - no CT follow-up required * nodule size >=6 mm - follow-up CT at 3-6 months. If unchanged, and solid component remains <6 mm, then annual follow-up for 5 years Multiple subsolid nodules * nodule size <6 mm - follow-up CT at 3-6 months, consider further follow-up at 2 and 4 years if stable * nodule size >=6 mm - follow-up CT at 3-6 months, subsequent management based on the most suspicious nodule(s) Electronically signed by: Ariel Chen M.D. 05/24/2016 10:43 AM Dictated Date/Time: 05/24/2016 10:36 AM
[2016-05-24 12:27] LABS: BASO % 0.1 %; BASO ABS # 0.01 K/uL (0-0.2); COMPLETE YES; EOS % 5.5 %; HEMATOCRIT 36.2 % (37-47); IG% 0.1 %; LYMPH ABS # 2.49 K/uL (1.2-3.4); MEAN CELL VOLUME 80.4 fL (80-100); MEAN CORPUSCULAR HEMOGLOBIN 25.6 pg (25-34); MEAN CORPUSCULAR HGB CONC 31.8 g/dl (32-36); MEAN PLATELET VOLUME 9.9 fL (7.4-10.4); MONO % 6.5 %; NEUT % 56.8 %; PLATELET COUNT 372 K/uL (130-400); WHITE BLOOD COUNT 8.02 K/uL (4.8-10.8)
[2016-05-24 12:37] LABS: INR 0.9 (0.9-1.1); PARTIAL THROMBOPLASTIN RATIO 1.1; PROTHROMBIN TIME (PATIENT) 9.9 SECONDS (9.0-12.0)
[2016-05-24 12:42] LABS: ALT/SGPT 25 U/L (12-78); BLOOD UREA NITROGEN 16 mg/dl (7-18); CALCIUM 9.1 mg/dl (8.5-10.1); CARBON DIOXIDE 29 mmol/L (21-32); CHLORIDE 105 mmol/L (98-107); CREATININE 0.84 mg/dl (0.60-1.20); GLUCOSE 87 mg/dl (70-99); POTASSIUM 3.8 mmol/L (3.5-5.1); SODIUM 141 mmol/L (136-145)
[2016-05-24 12:44] LABS: ALB/GLOB RATIO 0.9 (0.9-2); ALKALINE PHOSPHATASE 110 U/L (45-117); AST/SGOT 20 U/L (15-37)
== END | disposition home or self-care (01) ==
LOC: C.CTS 09:58
PROVIDERS: ATTEND Internal Medicine Critical Care Medicine
DX: J44.9 Chronic obstructive pulmonary disease, unspecified (principal); R05 Cough; N18.9 Chronic kidney disease, unspecified; K21.9 Gastro-esophageal reflux disease without esophagitis; R91.8 Other nonspecific abnormal finding of lung field; I77.810 Thoracic aortic ectasia; J34.2 Deviated nasal septum

== ENCOUNTER 2016-06-06 08:11 | Day surgery (SDC) | payer OTHER ==
[~2016-06-06] VITALS: Ht 172.7 cm; Wt 77.8 kg
[2016-06-06] VITALS (17 sets, daily range): BP systolic 94–146; BP diastolic 53–86; PULSE 68–86; TEMP 36.4–36.7; O2SAT 93–98; Ht 172.7 cm; Wt 77.8 kg
[~2016-06-06 08:11] MED LIST changes: -ALBU18002 INH; -ATOR10TA88 PO; -AZIT500T26 PO; -CHOL1000 PO; -CHOL2000 PO; -DXY100 PO; -HYCUDL5 PO; -ONDA4TAB46 PO; -PRED10TA PO; -PRED20TA2 PO; -SENN8.6T7 PO; -SERT50TA PO; -TIZA1CAP2 PO; -VTMD1000 PO
[2016-06-06] MEDS ORDERED: LIDOCAINE 4% INH SOLN 4 ML BTL ONE (08:12)
[2016-06-06] MEDS ORDERED: LIDOCAINE HCL 50 ML VIAL INFIL ONE (08:12)
[2016-06-06] MEDS ORDERED: MIDAZOLAM HCL 5 MG/ML 1 ML VIAL IV ONE ×2 (08:12→11:15)
[2016-06-06] MEDS ORDERED: FENTANYL CITRATE INJ 50 MCG/1 ML 2 ML VIAL IV ONE ×2 (08:12→11:15)
[2016-06-06] MEDS ORDERED: CHOL2000 PO (08:43)
[2016-06-06] MEDS ORDERED: SERT50TA PO (08:45)
[2016-06-06] MEDS ORDERED: TIZA1CAP2 PO (08:45)
[2016-06-06] MEDS ORDERED: ONDA4TAB46 PO (08:45)
[2016-06-06] MEDS ORDERED: ATOR10TA82 PO (08:45)
--- NOTE | 2016-06-06 09:27 | Procedure Note ---
Pre-Mod Sedation Assessment General Date of Moderate Sedation: Jun 06, 2016. Vital Signs: Vital Signs Past 12 Hours Date Time Temp Pulse Resp B/P Pulse Ox O2 Delivery O2 Flow Rate FiO2 06/06/16 08:58 36.7 70 20 119/72 97 Room Air Review Cardiovascular: regular rate, rhythm, no edema, no gallop, no JVD, no murmur, normal peripheral pulses Abdomen: normal bowel sounds, non tender, soft, no organomegaly, no pulsatile mass, normal rectal exam, occult blood negative Lungs: chest non-tender, lungs clear, normal breath sounds, no respiratory distress, no accessory muscle use Airway Class: II Pre-Sedation Airway Assessment Oral Cavity: Dentures Able to Visualize Vocal Cords: Yes Short Thick Neck: Yes Hx of Sleep Apnea: Yes Smoking Status: Former Smoker Mallampati Classification: Class IV ASA Classification: Class II Procedure Planning Contraindications-for Mod Sed: None Yes Notes The planned sedation has been discussed with the patient and consent obtained. I have identified the patient, determined the appropriateness of sedation and have assessed the patient immediately prior to the procedure. All medicine(s) and interventions are by my order.
[2016-06-06] MEDS ORDERED: NURSING VERBAL MED ORDER ONE ×2 (10:00→11:00)
[2016-06-06] MEDS ORDERED: DEXTROSE 5% 1000ML 1,000 ML IV SCH (10:30)
--- NOTE | 2016-06-06 10:48 | Bronchoscopy Procedure Note ---
Bronchoscopy Procedure Note Procedure: Bronchoscopy, conscious sedation, bronchial alveolar lavage right middle lobe Consent: Obtained through the patient placed into the chart Preprocedural diagnosis: Chronic cough with the right middle lobe 9 mm nodule Postprocedural diagnosis: Chronic cough with right middle lobe nodule as well as excessive dynamic airway collapse Start time: 1015 End time: 1034 Total time: 19 minutes Analgesia: 2% liquid lidocaine: Via nebulizer 4% gel lidocaine: Via right naris 2% liquid lidocaine: Via bronchoscopy Sedation: Versed IV: 5mg Fentanyl IV: 100 g Procedure: The Olympus video bronchoscope was used for this procedure, initially passed out through the right naris and the oropharynx Right naris: Was too small for the Olympus video bronchoscope passed through but the visualized portion was anatomically within normal limits Posterior oropharynx: [place]y IV Glottis: Anatomically within normal limits Vocal cords: Proper abduction and abduction, anatomically within normal limits Subglottis: Anatomically within normal limits Trachea: EDAC with 70% narrowing approximately [address] down the trachea Chitra: Anatomically within normal limits Right bronchial tree: Right mainstem bronchus: Anatomically within normal limits Right upper lobe: 70% EDAC Bronchus intermedius: 90% EDAC Right middle lobe: Anatomically within normal limits Right lower lobe: Anatomically within normal limits Findings: Notable for excessive dynamic airway collapse greatest in the bronchus intermedius Left bronchial tree: Left mainstem bronchus: 70% EDAC Left upper lobe: Anatomically within normal limits Lingula: Anatomically within normal limits Left lower lobe: Anatomically within normal limits Findings: 70% EDAC of the left main bronchus Bronchial alveolar lavage: 120 cc lavage was performed of the right middle lobe with only 30 cc returned of mildly alveolar looking fluid Complications: None Follow-up: Follow up in the [place] [facility]
--- NOTE | 2016-06-06 10:48 | Procedure Note ---
Post-Moderate Sedation Plan General Date of Moderate Sedation Jun 06, 2016. Vital Signs: Vital Signs Past 12 Hours Date Time Temp Pulse Resp B/P Pulse Ox O2 Delivery O2 Flow Rate FiO2 06/06/16 09:55 70 20 118/72 98 Room Air 06/06/16 08:58 36.7 70 20 119/72 97 Room Air Review - Discharge Plan Post Moderate Sedation Plan: On clinical assessment, the patient appears to have tolerated the conscious sedation without complications. Patient is recovering as anticipated. Patient will continue to be monitored by nursing and may be discharged when conscious sedation discharge criteria are met.
--- NOTE | 2016-06-06 10:53 | Discharge Instructions ---
Discharge Instructions Date of Service Jun 06, 2016. Admission Reason for Admission: Chronic Cough, Copd Discharge Discharge Diagnosis / Problem: excessive dynamic airway collapse, chronic cough , chronic dyspnea on exerti Discharge Goals Goal(s): Diagnostic testing Activity Recommendations Activity Limitations: resume your previous activity . Instructions / Follow-Up Instructions / Follow-Up Follow-up in the [place] [facility] within the next 7-10 days Current Hospital Diet Patient's current hospital diet: Discharge Diet Recommended Diet: Regular Diet Procedures Procedures Performed: Bronchoscopy, conscious sedation, bronchial alveolar lavage of the right middle lobe Pending Studies Studies pending at discharge: no List of pending studies: Microbiologic, fungal and atypical microbiologic evaluations Medical Emergencies . Who to Call and When: Medical Emergencies: If at any time you feel your situation is an emergency, please call 911 immediately. . Non-Emergent Contact Non-Emergency issues call your: [employer] Call Non-Emergent contact if: temperature is above 101.5 . . "Provider Documentation" section prepared by Servando Abdi. VTE Core Measure Inpt VTE Proph given/why not?: Treatment not indicated
[2016-07-15] MEDS ORDERED: PRED10TA PO (15:15)
[2016-07-15] MEDS ORDERED: HYCUDL5 PO (15:45)
[2016-11-19] MEDS ORDERED: DXY100 PO (14:00)
[2016-11-19] MEDS ORDERED: SENN8.6T7 PO (14:00)
[2016-11-19] MEDS ORDERED: PRED10TA PO (14:00)
[2016-11-19] MEDS ORDERED: HYCUDL5 PO (14:00)
[2016-12-14] MEDS ORDERED: AMOX/K OR (12:18)
[2016-12-14] MEDS ORDERED: ZNF4 PO (12:41)
[2016-12-14] MEDS ORDERED: ALEN70TA4 PO (12:44)
[2016-12-14] MEDS ORDERED: GUAISYP4 PO (12:44)
[2016-12-14] MEDS ORDERED: SERT-234 PO (13:34)
[2016-12-14] MEDS ORDERED: CLOB-77 TOP (13:34)
[2016-12-22] MEDS ORDERED: PRED10TA PO (12:29)
== END 2016-06-06 12:58 | disposition home or self-care (01) ==
LOC: C.ACU 08:11
PROVIDERS: ATTEND Internal Medicine Critical Care Medicine
DX: R05 Cough (principal); R91.1 Solitary pulmonary nodule; J98.8 Other specified respiratory disorders; J44.9 Chronic obstructive pulmonary disease, unspecified; F17.200 Nicotine dependence, unspecified, uncomplicated

== ENCOUNTER → 2016-06-23 | Day surgery (SDC) | payer OTHER ==
--- NOTE | 2016-06-05 17:43 | History and Physical ---
History & Physical Date Jun 05, 2016. Chief Complaint Chronic hypoxemia and cough History of Present Illness The patient is a 66 year old female with complaints of chronic cough with SOB 66-yo female presents to the office for acute visit with cough and chest congestion. Prior records were reviewed. PMHx includes: O2 -dependent COPD ( 2LPM PRN and QHS, oral and esophageal candidiasis, obstructive sleep apnea ( refuses treatment), former ETOH use, GERD, h/o pneumonia, IBS, PUD, and CALE II. Former tobacco use: 40-pack year. Home heat: coal and wood. Patient has been prescribed Stiolto, Pulmicort, Laura-resp, Duo-nebs, adn O2 ( 2LPM QHS and PRN) in the past. SHe was diagnosed with ELÍAS several years ago but non-compliant with CPAP and now uses nasal cannula only. She established in our office post admission to [facility] 12/2015 with exacerbation of COPD. She underwent bronchoscopy 01/19/16 notable for EDAC (60% trachea, 70% right mainstem, 90% RUL and left bronchial trees. Otherwise, unremarkable. Video swallow: no aspiration. Echocardiogram 09/2015: pEF, Grade I diastolic dysfunction. No significant valvular disease. PMHx includes: O2 -dependent COPD (2LPM PRN and QHS, oral and esophageal candidiasis, obstructive sleep apnea (refuses treatment), former ETOH use, GERD , h/o pneumonia, IBS, PUD, and CALE II. Former tobacco use: 40-pack year. Home heat: coal and wood. She underwent bronchoscopy 01/19/16 notable for EDAC (60% trachea, 70% right mainstem, 90% RUL and left bronchial trees. Otherwise, unremarkable. Video swallow: no aspiration. Echocardiogram 09/2015: pEF, Grade I diastolic dysfunction. No significant valvular disease. Pulmonary function test dated 08/03/2014 FEV1/FVC: 73 FEV1: 1.36/40 % FVC : 0.86/51 % Bronchodilator change: Significant post bronchodilator change for FVC [id number] Past Medical/Surgical History Medical Problems: (1) Alcohol dependence in remission (2) Benign neoplasm of colon (3) COPD, moderate (4) Cystic Kidney Disease, Unspecified (5) Dysfunctional gallbladder (6) GERD (gastroesophageal reflux disease) (7) History of aspiration pneumonia (8) Hyperlipidemia (9) Hypertension Nos (10) IBS (irritable bowel syndrome) (11) Obstructive sleep apnea (12) PUD (peptic ulcer disease) (13) Thoracic aortic ectasia (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) Surgical Problems: (1) H/O cervical spine surgery (2) H/O colonoscopy (3) H/O hysterectomy with oophorectomy (4) History of cataract surgery (5) S/P appendectomy (6) S/p exploration of abdomen (7) S/p left sided discectomy, L3-4 (8) S/P lumbar spinal fusion (9) S/p lumbar spine revision (10) S/P tonsillectomy Additional History Hepatic Disease: No Endocrine Disorder: No Kidney Disease: Yes Hypertension: Yes Heart Disease: No Bleeding Tendencies: No Infectious Diseases: thrush Allergies Coded Allergies: No Known Allergies (Unverified , 03/13/16) PER PATIENT Home Medications Scheduled Ascorbic Acid (Vitamin C), 500 MG PO HS Atorvastatin (Atorvastatin Calcium), 10 MG PO HS Budesonide (Inhalation) (Pulmicort), 1 ML NEB BID Cholecalciferol (Vitamin D), 1,000 INTER.UNIT PO HS Cholecalciferol (Vitamin D3), 1 TAB PO QAM Furosemide (Furosemide), 20 MG PO QAM Gabapentin (Neurontin), 300 MG PO TID Ipratropium-Albuterol (Duoneb), 3 ML INH QID Oxygen (Oxygen), 2 LITERS NA CONTINOUS Pantoprazole (Protonix), 40 MG PO BID Potassium Ext Rel (Klor-Con), 20 MEQ PO QAM Ranitidine HCl (Ranitidine HCl), 150 MG PO BID Roflumilast (Daliresp), 1 TAB PO QAM Sertraline HCl (Sertraline HCl), 50 MG PO HS Tiotropium [place]-Olodaterol (Stiolto Respimat 2.5-2.5 Mcg/Act), Unknown Dose PO DAILY Scheduled PRN Albuterol Sulfate (Proair Hfa), 2 PUFFS INH QID PRN for SOB/Wheezing Lorazepam (Lorazepam), 1 MG PO TID PRN for Anxiety Nystatin (Nystatin Suspension), 5 ML PO QID PRN for Thrush Tramadol (Ultram), 50 MG PO Q6H PRN for Pain Physical Examination Skin: warm/dry, no rash Eyes: normal inspection, EOMI, sclerae normal ENT: normal ENT inspection, pharynx normal Head: normocephalic, atraumatic Neck: supple, no adenopathy, trachea midline Respiratory/Chest: lungs clear, normal breath sounds, no respiratory distress Cardiovascular: regular rate, rhythm, no edema, no murmur Abdomen / GI: normal bowel sounds, non tender Back: normal inspection Extremities: normal inspection, normal range of motion Neurologic/Psych: no motor/sensory deficits, alert, normal reflexes, oriented x 3 Diagnosis Hypoxemia with associated chronic cough ASA Classification: ASA Class III Plan of Treatment Bronchoscopy for EDAC evaluation, chronic cough and ACOSTA
[2016-06-13 11:39] VITALS: BMI 26.0
[~2016-06-23] VITALS: Ht 170.2 cm; Wt 77.7 kg
[~2016-06-23] MED LIST changes: +ALBU18002 INH; +ALEN70TA4 PO; +AMOX/K OR; +ATROPINE SULFATE 0.1 MG/ML 5ML SYR IV PRN; +AZIT500T26 PO; +CHOL1000 PO; +CLOB-77 TOP; +DXY100 PO; +EpHEDrine SULFATE INJ 50 MG/ML AMP IV PRN; +FENTANYL CITRATE INJ 50 MCG/1 ML 2 ML VIAL ONE; +GUAISYP4 PO; +HYCUDL5 PO; +LACTATED RINGER'S 1000ML 1,000 ML IV SCH; +LARYING-O-JET KIT (LTA) EXT ONE; +LIDOCAINE 2% 20 MG/ML 5ML SYR ONE; +MIDAZOLAM HCL 1 MG/ML 2ML VIAL ONE; +ONDA4TAB46 PO; +PRED10TA PO; +PRED20TA2 PO; +PROPOFOL IV EMULSION 10 MG/ML 20 ML VIAL IV ONE; +SENN8.6T7 PO; +SERT-234 PO; +SERT50TA PO; +SODIUM CHLORIDE 0.9% 500ML 500 ML IV ONE; +SUCCINYLCHOLINE CHLORIDE 20 MG/ML 10 ML VIAL IV ONE; +TIZA1CAP2 PO; +VTMD1000 PO; +ZNF4 PO
--- NOTE | 2016-06-23 08:48 | Endo History and Physical ---
History & Physical Date of Service: Jun 22, 2016. Chief Complaint: Referring Physician: History of Present Illness 65 year old female patient of Dr. Clemons with a hx of COPD is here for nausea, abdominal pain. She was has been dealing with nausea, occasional vomiting for 3-4 months. This occurs w/o regard to eating - being totally unpredictable. Nausea is present most, but not all days. Vomiting has occurred about twice in the past week - this is an improvement in frequency. Vomiting sometimes happens with coughing spells but also w/o cough. She has chronic lower abdomen cramping pain that is not related to eating or defecation and she believes that this was present prior to the onset of the nausea/vomiting. She has undergone EGD x 2 and gallbladder us for these issues. The initial EGD was with candidiasis but f/u was normal. A review of her med list does not show any new meds at the time of the onset of the nausea. She is on gabapentin which can cause nausea but it appears that she has been on this since Jan 2014. No melena or hematochezia. No weight loss. Prior work up to Date: Gallbladder US 11/21/15: normal. EGD Dr. Miner 12/23/15: normal, no candidiasis EGD Dr. Hannah 10/26/15: diffuse candidiasis in the mid esophagus, small hiatal hernia Past Medical History Arthritis, Asthma, Reflux, High Cholesterol, Hypertension, COPD, Other Past Surgical History Hx Cardiac Surgery: No Hx Internal Defibrillator: No Hx Pacemaker: No Hx Abdominal Surgery: Yes (MARICRUZ BSO, APPENDECTY, EXPLORATORY LAP,OLE) Hx Post-Op Nausea and Vomiting: No Hx Cancer Surgery: Yes (CERVICAl BX X 2) Hx Thoracic Surgery: No Hx Orthopedic: Yes (ARM AND SHOULDER CYST REMOVAL, 3 BACK SURGERY, CERVICAL SURGERY (FULL ROM)) Hx Urinary Tract Surgery: No Social History Smoking Status: Former Smoker Hx Substance Use: No Hx Alcohol Use: No (NONE AT THIS TIME) Allergies Coded Allergies: No Known Allergies (Unverified , 06/13/16) PER PATIENT Current Medications Reported Home Medications Medications Dose Route/Sig Max Daily Dose Days Date Category Dose Instructions Zofran (Ondansetron HCl) 4 Mg Tab 4 Mg PO Q8 PRN 06/06/16 Reported Tizanidine Hcl 4 Mg Cap 0.5 Tab PO Q6 06/06/16 Reported Protonix (Pantoprazole Sodium) 40 Mg Tab 40 Mg PO BID 03/13/16 Reported Vitamin D3 (Cholecalciferol) 2,000 Unit Tab 2 Tab PO QAM 90 03/03/16 Reported Daliresp (Roflumilast) 500 Mcg Tab 1 Tab PO QAM 30 03/03/16 Reported Stiolto Respimat 2.5-2.5 Mcg/Act (Tiotropium [place]-Olodaterol) 1 Aer Aer Unknown Dose PO BID 01/19/16 Reported INHALE 2 PUFFS DAILY Neurontin (Gabapentin) 300 Mg Cap 300 Mg PO TID 01/19/16 Reported Klor-Con (Potassium Chloride) 20 Meq Tabcr 20 Meq PO QAM 12/26/15 Reported Pulmicort (Budesonide (Inhalation)) 1 Mg/2 Ml Enedina 1 Ml NEB BID 10/21/15 Reported Sertraline HCl 50 Mg Tab 50 Mg PO HS 10/21/15 Reported Lorazepam 1 Mg Tab 1 Mg PO TID PRN 10/21/15 Reported Ranitidine HCl 150 Mg Tab 150 Mg PO BID 10/21/15 Reported Proair Hfa (Albuterol Sulfate) 108 Mcg/ Aer 2 Puffs INH QID PRN 10/21/15 Reported Atorvastatin Calcium (Atorvastatin) 10 Mg Tab 10 Mg PO HS 10/21/15 Reported Furosemide 20 Mg Tab 20 Mg PO QAM 10/21/15 Reported Oxygen Gas 2 Liters NA CONTINOUS 09/25/15 Reported ALWAYS USES HS/DURING DAY PRN Duoneb (Ipratropium-Albuterol) 3 Ml Nebu 3 Ml INH QID 09/25/15 Reported Ultram (Tramadol HCl) 50 Mg Tab 50 Mg PO Q6H PRN 09/25/15 Reported Nystatin Suspension (Nystatin) 1 Ml Susp 5 Ml PO QID PRN 09/25/15 Reported SWISH AND SWALLOW Vitamin C (Ascorbic Acid) 500 Mg Cap 500 Mg PO HS 08/18/14 Reported Vitamin D (Cholecalciferol) 1,000 Inter.unit Tab 1,000 Inter.unit PO HS 08/01/13 Reported Vital Signs Weight (Kilograms): 77.73 Height (Feet): 5 Height (Inches): 7 Physical Exam General Appearance: WD/WN, no apparent distress Respiratory/Chest: Respiratory effort: no dyspnea Auscultation: breath sounds normal, CTA except as noted, no wheezing Cardiovascular: Apical Impulse: not displaced Heart Auscultation: RRR, normal S1, normal S2 Abdomen: Bowel Sounds: normal Inspection & Palpation: soft, non-distended, no tenderness, guarding & rebound Assessment and Plan 66 yo with continued c/o of nausea and dyspepsia and post tussive emesis presenting for EGD/EUS
[2016-06-23 09:06] VITALS: BP 143/79; PULSE 85; TEMP 36.7; O2SAT 97; Ht 170.2 cm; Wt 77.7 kg
--- NOTE | 2016-06-23 10:18 | Discharge Instructions ---
Endoscopy Patient Instructions Date / Procedure(s) Performed Jun 23, 2016. Other Allergy Information Coded Allergies: No Known Allergies (Unverified , 06/23/16) PER PATIENT Discharge Date / Findings Jun 23, 2016. Normal Upper endoscopy and endoscopic ultrasound Provider Instructions Activity Restrictions - No exercising or heavy lifting for 24 hours. - Do not drink alcohol the day of the procedure. - Do not drive a car or operate machinery until the day after the procedure. - Do not make any important decisions or sign important papers in 24 hours after the procedure. Following Day: - Return to full activity which may include returning to work/school. Diet Start your diet with liquids and light foods (jello, soup, juice, toast). Then eat your usual diet if not nauseated. Treatment For Common After Affects For mild abdominal pain, bloating, or excessive gas: - Rest - Eat lightly - Lie on right side Follow-Up Information Follow-up with as scheduled Anesthesia Information What You Should Know You have had a procedure that required some medicine to reduce anxiety and discomfort. This treatment is called moderate sedation. After receiving the treatment, you may be sleepy, but you will be able to breathe on your own. The effects of the treatment may last for several hours. Follow these instructions along with Activity/Diet recommendations noted above: * Do NOT do anything where dizziness or clumsiness would be dangerous. * Rest quietly at home today, then you can be up and about tomorrow. * Have a responsible person stay with you the rest of today. * You may have had an I.V. today. If so, you may take the dressing off later today. Recommendations Call your doctor if: * Trouble breathing * Continuous vomiting for more than 24 hours * Temperature above 101 degrees * Severe abdominal pain or bloating * Pain not relieved by pain medicine ordered * There is increased drainage or redness from any incision * A large amount of rectal bleeding greater than 2-3 tablespoons. (If you had a polyp/s removed or have hemorrhoids, a small amount of blood - from the rectum is to be expected.) * You have any unanswered questions or concerns. IN THE EVENT OF A SERIOUS EMERGENCY, GO TO THE NEAREST EMERGENCY ROOM Your discharge instructions were prepared by provider Yonny Chavez. Patient Instructions Signature Page Mar Em Patient (or Guardian) Signature/Date: I have read and understand the instructions given to me by my caregivers. Caregiver/RN/Doctor Signature/Date: The above-named patient and/or guardian has received patient instructions on this date. + Original Patient Signature Page (only) stays with chart. Please make copy for patient.
--- NOTE | 2016-06-23 10:25 | GI REPORT ---
Procedure Date: 06/23/2016 9:24 AM Procedure: Upper GI endoscopy Indications: Nausea with vomiting Medicines: General Anesthesia Complications: No immediate complications. Estimated blood loss: None. Estimated Blood Loss: Estimated blood loss: none. Procedure: Pre-Anesthesia Assessment: - Pre-Anesthesia Assessment: - Prior to the procedure, a History and Physical was performed, and patient medications, allergies and sensitivities were reviewed. The patient's tolerance of previous anesthesia was reviewed. Please see [email or web address] for complete details. - The risks and benefits of the procedure and the sedation options and risks were discussed with the patient. All questions were answered and informed consent was obtained. - Patient identification and proposed procedure were verified prior to the procedure by the physician and the nurse. The procedure was verified in the pre-procedure area in the procedure room. After obtaining informed consent, the endoscope was passed carefully and meticuously under direct vision and only advanced when the lumen was clearly identified, C02 insuflation was utilized throughout the entirity of the procedure. Throughout the procedure, the patient's blood pressure, pulse, and oxygen saturations were monitored continuously. After obtaining informed consent, the endoscope was passed under direct vision. Throughout the procedure, the patient's blood pressure, pulse, and oxygen saturations were monitored continuously. The On-site loaner was introduced through the mouth, and advanced to the second part of duodenum. The upper GI endoscopy was accomplished without difficulty. The patient tolerated the procedure well. Findings: The examined esophagus was normal. The entire examined stomach was normal. Biopsies were taken with a cold forceps for histology. The examined duodenum was normal. Biopsies for histology were taken with a cold forceps for evaluation of celiac disease. Impression: - Normal esophagus. - Normal stomach. Biopsied. - Normal examined duodenum. Biopsied. Recommendation: - Await pathology results. - Discharge patient to home (with escort). - Continue present medications. - Return to referring physician as previously scheduled. - Perform an upper endoscopic ultrasound (UEUS) today. Yonny Chavez MD 06/23/2016 10:24:45 AM This report has been signed electronically. Note Initiated On: 06/23/2016 9:24 AM I attest to the content of the Intraoperative Record and orders documented therein, exceptions below
--- NOTE | 2016-06-23 10:28 | GI REPORT ---
Procedure Date: 06/23/2016 9:26 AM Procedure: Upper EUS Indications: Generalized abdominal distress Medicines: General Anesthesia Complications: No immediate complications. Estimated blood loss: None. Estimated Blood Loss: Estimated blood loss: none. Procedure: Pre-Anesthesia Assessment: - Pre-Anesthesia Assessment: - Prior to the procedure, a History and Physical was performed, and patient medications, allergies and sensitivities were reviewed. The patient's tolerance of previous anesthesia was reviewed. Please see [facility] [place] for complete details. - The risks and benefits of the procedure and the sedation options and risks were discussed with the patient. All questions were answered and informed consent was obtained. - Patient identification and proposed procedure were verified prior to the procedure by the physician and the nurse. The procedure was verified in the pre-procedure area in the procedure room. After obtaining informed consent, the endoscope was passed carefully and meticuously under direct vision and only advanced when the lumen was clearly identified, C02 insuflation was utilized throughout the entirity of the procedure. Throughout the procedure, the patient's blood pressure, pulse, and oxygen saturations were monitored continuously. After obtaining informed consent, the endoscope was passed under direct vision. Throughout the procedure, the patient's blood pressure, pulse, and oxygen saturations were monitored continuously. The Endosonoscope was introduced through the mouth, and advanced to the second part of duodenum. The upper EUS was accomplished without difficulty. The patient tolerated the procedure well. Findings: Endosonographic Finding : There was no sign of significant endosonographic abnormality in the entire pancreas. The pancreatic duct measured up to 3 mm in diameter. The pancreas was well visualized, no pathologic lymphadenopathy, no masses, no cysts, no calcifications, the pancreatic duct was well visualized from ampulla to tail, the pancreatic duct was thin in caliber, the pancreatic duct was regular in contour. There was no sign of significant endosonographic abnormality in the left lobe of the liver. There was no sign of significant endosonographic abnormality in the common bile duct. The maximum diameter of the duct was 6 mm. No pathologic lymphadenopathy, no masses, no cysts, no calcifications, no stones, no biliary sludge and ducts of normal caliber were identified. The gallbladder was surgically absent consistent with history of cholecystectomy. No lymphadenopathy seen. Normal celiac trunk and left adrenal Impression: - There was no sign of significant pathology in the entire pancreas. - There was no evidence of significant pathology in the left lobe of the liver. - There was no sign of significant pathology in the common bile duct. - No specimens collected. Recommendation: - Discharge patient to home (with escort). - Return to referring physician as previously scheduled. Yonny Chavez MD 06/23/2016 10:28:03 AM This report has been signed electronically. Note Initiated On: 06/23/2016 9:26 AM I attest to the content of the Intraoperative Record and orders documented therein, exceptions below
[2016-06-23 11:15] VITALS: BP 103/62; PULSE 84; TEMP 37; O2SAT 100
[2016-06-23 11:45] VITALS: BP 100/65; PULSE 79; O2SAT 99
--- NOTE | 2016-06-23 12:03 | Anesthesiology Progress Note ---
Anesthesia Post Op Note Date & Time Jun 23, 2016 at 12:03 Vital Signs Pain Intensity: 0 Vital Signs Past 12 Hours Date Time Temp Pulse Resp B/P Pulse Ox O2 Delivery O2 Flow Rate FiO2 06/23/16 11:00 94 16 118/75 98 Nasal Cannula 3 06/23/16 10:50 36.6 84 16 119/84 98 Nasal Cannula 3 06/23/16 10:40 104 15 135/72 100 Nasal Cannula 3 06/23/16 10:30 101 15 130/85 100 Mask 5 06/23/16 10:22 36.7 104 15 133/79 100 Mask 10 06/23/16 09:06 36.7 85 16 143/79 97 Room Air Notes Mental Status: alert / awake / arousable, participated in evaluation Pt Amnestic to Procedure: Yes Nausea / Vomiting: adequately controlled Pain: adequately controlled Airway Patency, RR, SpO2: stable & adequate BP & HR: stable & adequate Hydration State: stable & adequate Anesthetic Complications: no major complications apparent
[2016-06-23 12:15] VITALS: BP 107/61; PULSE 89; TEMP 36.5; O2SAT 94
== END | disposition home or self-care (01) ==
LOC: C.ACU 08:20
PROVIDERS: ATTEND Internal Medicine
DX: R11.2 Nausea with vomiting, unspecified (principal); I10 Essential (primary) hypertension; E78.00 Pure hypercholesterolemia, unspecified; K21.9 Gastro-esophageal reflux disease without esophagitis; J44.9 Chronic obstructive pulmonary disease, unspecified; M19.90 Unspecified osteoarthritis, unspecified site; Z87.891 Personal history of nicotine dependence; Z79.899 Other long term (current) drug therapy

== ENCOUNTER 2016-07-07 17:12 | Inpatient (IN) | payer OTHER ==
[~2016-07-07] VITALS: Ht 172.7 cm; Wt 74.9 kg
[~2016-07-07 17:12] MED LIST changes: -ALBU18002 INH; -ALEN70TA4 PO; -AMOX/K OR; -ATROPINE SULFATE 0.1 MG/ML 5ML SYR IV PRN; -AZIT500T26 PO; -CHOL1000 PO; -CLOB-77 TOP; -DXY100 PO; -EpHEDrine SULFATE INJ 50 MG/ML AMP IV PRN; -FENTANYL CITRATE INJ 50 MCG/1 ML 2 ML VIAL ONE; -GUAISYP4 PO; -HYCUDL5 PO; -LACTATED RINGER'S 1000ML 1,000 ML IV SCH; -LARYING-O-JET KIT (LTA) EXT ONE; -LIDOCAINE 2% 20 MG/ML 5ML SYR ONE; -MIDAZOLAM HCL 1 MG/ML 2ML VIAL ONE; -PRED10TA PO; -PRED20TA2 PO; -PROPOFOL IV EMULSION 10 MG/ML 20 ML VIAL IV ONE; -SENN8.6T7 PO; -SERT-234 PO; -SERT50TA PO; -SODIUM CHLORIDE 0.9% 500ML 500 ML IV ONE; -SUCCINYLCHOLINE CHLORIDE 20 MG/ML 10 ML VIAL IV ONE; -VTMD1000 PO; -ZNF4 PO
[2016-07-07] MEDS ORDERED: METHYLPREDNISOLONE 125 MG VIAL IV STA (17:17)
--- NOTE | 2016-07-07 17:18 | EMERGENCY ROOM VISIT NOTE ---
History Report prepared by Navid: Jose Gannon Under the Supervision of: Dr. Jose Carlos Yo D.O. First contact with patient: 17:11 Chief Complaint: SHORTNESS OF BREATH Stated Complaint: SOB, CHEST CONGESTION, SINUS HEADACHE History of Present Illness The patient is a 66 year old female who presents to the Emergency Room via ALS with complaints of persistent shortness of breath for the past week. The patient also complains of cough, nasal congestion, and sinus pain. Per EMS, the patient was 96 on room air when they arrived. After putting the patient on 4 L of nasal canula, she came up to 99. She is on oxygen at home as needed and has a history of COPD. The patient denies fever or swelling in her legs at this time. Source of History: patient Onset: the past week Position: other (global) Timing: other (persistent) Associated Symptoms: + cough, No fevers Note: Other associated symptoms: nasal congestion and sinus pain Denies: swelling in legs Review of Systems See HPI for pertinent positives & negatives. A total of 10 systems reviewed and were otherwise negative. 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) Surgical Problems: (1) H/O cervical spine surgery (2) H/O colonoscopy (3) H/O hysterectomy with oophorectomy (4) History of cataract surgery (5) S/P appendectomy (6) S/p exploration of abdomen (7) S/p left sided discectomy, L3-4 (8) S/P lumbar spinal fusion (9) S/p lumbar spine revision (10) S/P tonsillectomy Family History Blood clots MOTHER Cardiac disorder BROTHER (congenital heart disease) FH: CHF (congestive heart failure) MOTHER FH: heart disease MOTHER GRANDMOTHER FH: lung disease Hypertension Social History Marital Status: single Occupation Status: retired Current/Historical Medications Scheduled Ascorbic Acid (Vitamin C), 500 MG PO HS Atorvastatin (Atorvastatin Calcium), 10 MG PO HS Budesonide (Inhalation) (Pulmicort), 0.5 MG NEB BID Cholecalciferol (Vitamin D3), 1 TAB PO QPM Cholecalciferol (Vitamin D3), 2,000 UNITS PO QAM Furosemide (Furosemide), 20 MG PO QAM Gabapentin (Neurontin), 300 MG PO TID Ipratropium-Albuterol (Duoneb), 3 ML INH Q6 Oxygen (Oxygen), 2 LITERS NA CONTINOUS Pantoprazole (Protonix), 40 MG PO BID Potassium Ext Rel (Klor-Con), 20 MEQ PO QAM Ranitidine HCl (Ranitidine HCl), 150 MG PO BID Roflumilast (Daliresp), 1 TAB PO QAM Sertraline (Zoloft), 50 MG PO DAILY Tiotropium [place]-Olodaterol (Stiolto Respimat 2.5-2.5 Mcg/Act), 2 PUFFS INH DAILY Tizanidine Hcl (Tizanidine Hcl), 0.5 TAB PO Q6 Scheduled PRN Albuterol Sulfate (Proair Respiclick), 2 PUFFS INH Q4 PRN for SOB/Wheezing Lorazepam (Lorazepam), 1 MG PO TID PRN for Anxiety Nystatin (Nystatin Suspension), 5 ML PO QID PRN for Thrush Ondansetron Hcl (Zofran), 4 MG PO Q8 PRN for Nausea Tramadol (Ultram), 50 MG PO Q6H PRN for Pain Allergies Coded Allergies: No Known Allergies (Unverified , 06/23/16) PER PATIENT Physical Exam Vital Signs Date Time Temp Pulse Resp B/P Pulse Ox O2 Delivery O2 Flow Rate FiO2 07/07/16 21:35 112 07/07/16 20:46 117 20 96 Nasal Cannula 2.0 07/07/16 20:45 122 24 140/82 97 Room Air 07/07/16 19:26 103 20 127/64 96 Nasal Cannula 2.0 07/07/16 18:31 108 20 107/71 97 Nasal Cannula 2.0 07/07/16 17:42 82 18 96 Nasal Cannula 2.0 07/07/16 17:37 82 07/07/16 17:18 36.8 94 20 151/85 92 Room Air 07/07/16 17:18 92 Room Air 07/07/16 17:18 92 Room Air 07/07/16 17:18 92 Room Air Physical Exam GENERAL: Patient is awake alert and very anxious appearing. EYES: The conjunctivae are clear. The pupils are round and reactive. EARS, NOSE, MOUTH AND THROAT: The nose is without any evidence of any deformity. Mucous membranes are moist tongue is midline NECK: The neck is nontender and supple. RESPIRATORY: Diminished lung sounds throughout, scattered expiratory wheezing noted throughout all lung becerra. Mild conversational dyspnea was noted. Pursed lip breathing was noted. CARDIOVASCULAR: Regular rate and rhythm noted there no murmurs rubs or gallops normal S1 normal S2 GASTROINTESTINAL: The abdomen is soft. Bowel sounds are present in all quadrants. Abdomen is nontender MUSCULOSKELETAL/EXTREMITIES: There is no evidence of gross deformity full range of motion is noted in the hips and shoulders SKIN: There is no obvious evidence of any rash. There are no petechiae, pallor or cyanosis noted. NEUROLOGIC: Patient is awake alert and oriented x3 Medical Decision & Procedures ER Provider Diagnostic Interpretation: X-ray results as stated below per interpretation by me and the radiologist. CHEST ONE VIEW PORTABLE HISTORY: EVALUATE RESPIRATORY DISTRESS.DYSPNEA COMPARISON: Chest CT 05/24/2016. FINDINGS: No focal lung consolidations to suggest pneumonia. No evidence for pulmonary edema. No pleural effusions. No pneumothorax. The heart is stable in size. IMPRESSION: No significant change compared to the prior study. No acute process. Electronically signed by: Livan Torres M.D. 07/07/2016 5:46 PM Dictated Date/Time: 07/07/2016 5:45 PM Laboratory Results 07/07/16 17:31 Red Blood Count 4.44, Mean Corpuscular Volume 79.3, Mean Corpuscular Hemoglobin 25.2, Mean Corpuscular Hemoglobin Concent 31.8, Mean Platelet Volume 9.1, Neutrophils (%) (Auto) 67.6, Lymphocytes (%) (Auto) 23.2, Monocytes (%) (Auto) 5.7, Eosinophils (%) (Auto) 3.2, Basophils (%) (Auto) 0.0, Neutrophils # (Auto) 5.31, Lymphocytes # (Auto) 1.82, Monocytes # (Auto) 0.45, Eosinophils # (Auto) 0.25, Basophils # (Auto) 0.00 07/07/16 17:31 Test 07/07/16 17:31 07/07/16 19:32 White Blood Count 7.85 K/uL (4.8-10.8) Red Blood Count 4.44 M/uL (4.2-5.4) Hemoglobin 11.2 g/dL (12.0-16.0) Hematocrit 35.2 % (37-47) Mean Corpuscular Volume 79.3 fL (80-100) Mean Corpuscular Hemoglobin 25.2 pg (25-34) Mean Corpuscular Hemoglobin Concent 31.8 g/dl (32-36) Platelet Count 328 K/uL (130-400) Mean Platelet Volume 9.1 fL (7.4-10.4) Neutrophils (%) (Auto) 67.6 % Lymphocytes (%) (Auto) 23.2 % Monocytes (%) (Auto) 5.7 % Eosinophils (%) (Auto) 3.2 % Basophils (%) (Auto) 0.0 % Neutrophils # (Auto) 5.31 K/uL (1.4-6.5) Lymphocytes # (Auto) 1.82 K/uL (1.2-3.4) Monocytes # (Auto) 0.45 K/uL (0.11-0.59) Eosinophils # (Auto) 0.25 K/uL (0-0.5) Basophils # (Auto) 0.00 K/uL (0-0.2) RDW Standard Deviation 46.5 fL (36.4-46.3) RDW Coefficient of Variation 16.0 % (11.5-14.5) Immature Granulocyte % (Auto) 0.3 % Immature Granulocyte # (Auto) 0.02 K/uL (0.00-0.02) Prothrombin Time 10.2 SECONDS (9.0-12.0) Prothromb Time International Ratio 1.0 (0.9-1.1) Activated Partial Thromboplast Time 28.5 SECONDS (21.0-31.0) Partial Thromboplastin Ratio 1.1 Venous Blood pH 7.46 (7.36-7.41) Venous Blood Partial Pressure CO2 40 mmHg (38.0-50.0) Venous Blood Partial Pressure O2 70 mmHg Venous Blood HCO3 28 mmol/L Venous Blood Oxygen Saturation 93.0 % Venous Blood Base Excess 3.9 mmol/L Anion Gap 5.0 mmol/L (3-11) Est Creatinine Clear Calc Drug Dose 64.0 ml/min Estimated GFR () 81.0 Estimated GFR (Non- 69.9 BUN/Creatinine Ratio 11.5 (10-20) Calcium Level 8.9 mg/dl (8.5-10.1) Magnesium Level 2.2 mg/dl (1.8-2.4) Total Bilirubin 0.4 mg/dl (0.2-1) Aspartate Amino Transf (AST/SGOT) 10 U/L (15-37) Alanine Aminotransferase (ALT/SGPT) 14 U/L (12-78) Alkaline Phosphatase 93 U/L (45-117) Troponin I < 0.015 ng/ml (0-0.045) Total Protein 7.0 gm/dl (6.4-8.2) Albumin 3.5 gm/dl (3.4-5.0) Globulin 3.5 gm/dl (2.5-4.0) Albumin/Globulin Ratio 1.0 (0.9-2) Urine Color YELLOW Urine Appearance CLEAR (CLEAR) Urine pH 5.5 (4.5-7.5) Urine Specific [place] 1.021 (1.000-1.030) Urine Protein NEG (NEG) Urine Glucose (UA) NEG (NEG) Urine Ketones TRACE (NEG) Urine Occult Blood 1+ (NEG) Urine Nitrite NEG (NEG) Urine Bilirubin NEG (NEG) Urine Urobilinogen NEG (NEG) Urine Leukocyte Esterase MODERATE (NEG) Urine WBC (Auto) 10-30 /hpf (0-5) Urine RBC (Auto) 5-10 /hpf (0-4) Urine Hyaline Casts (Auto) 5-10 /lpf (0-5) Urine Epithelial Cells (Auto) >30 /lpf (0-5) Urine Bacteria (Auto) NEG (NEG) Urine Crystals See comments (NONE PRSENT) Laboratory results per my review. Medications Administered Medications (Trade) Dose Ordered Sig/Edis Route Start Time Stop Time Status Last Admin Dose Admin Albuterol/ Ipratropium (Duoneb) 12 ml ONE ONCE INH 07/07/16 17:30 07/07/16 17:31 DC 07/07/16 17:41 12 ML Methylprednisolone Sodium Succinate 125 mg 125 mg NOW STAT IV 07/07/16 17:17 07/07/16 17:18 DC 07/07/16 17:36 125 MG Sodium Chloride (Nss 500ml) 500 ml @ 999 mls/hr Q31M STAT IV 07/07/16 19:26 07/07/16 19:56 DC 07/07/16 19:20 999 MLS/HR ECG Indication: SOB/dyspnea Rate (beats per minute): 87 Rhythm: normal sinus Findings: no ectopy, other (no acute ST segment abnormality) ED Course 1709: The patient was evaluated in room C8. A complete history and physical examination were performed. 1716: Ordered Solu Medrol IV 125 mg IV. 1729: Ordered Duoneb 12 ml INH. 1910: At this time, I reevaluated the patient and she still was not feeling well. 1925: Ordered NSS 500 ml @ 999 mls/hr IV. 1926: At this time, I reevaluated the patient and she still was not feeling well. She stated the she would feel more comfortable staying in the hospital. 2053: At this time, I discussed the patient's case with Dr. Gregg [facility] and she agreed to accept the patient for further evaluation. Medical Decision Differential diagnosis: Etiologies such as infections, reactive airway disease, pneumonia, pneumothorax , COPD, CHF, cardiac ischemia, pulmonary embolism, musculoskeletal, gastrointestinal, as well as others were entertained. Nursing notes reviewed. Additional history was obtained from the prehospital personnel. The patient is a 66-year-old female who presented to the emergency department for an evaluation of shortness of breath. The patient is a history COPD. She had severe cough and difficulty breathing. My initial valuation was positive for significant bronchospasm. The patient was treated with IV fluids IV steroids and bronchodilator therapy. On subsequent reevaluation she was feeling much better. The patient tried to ambulate but had very significant tachycardia and shortness of breath. Her oxygen saturation remained acceptable and supple and oxygen. The patient was not comfortable being discharged home at this time. For this reason I discussed her case with the on-call [facility] rajanist. They've agreed to evaluate the patient in the emergency department for further management and disposition. The patient does not appear to have signs of pneumonia on chest x-ray. She did not have a fever and her cough is nonproductive at this time. Consults Time Called: 2048 Consulting Physician: Dr. Gregg - Hospitalist [facility] Returned Call: [phone] At this time, I discussed the patient's case with Dr. Gregg and she agreed to accept the patient for further evaluation. Impression Primary Impression: COPD exacerbation Additional Impression: Shortness of breath Scribe Attestation The scribe's documentation has been prepared under my direction and personally reviewed by me in its entirety. I confirm that the note above accurately reflects all work, treatment, procedures, and medical decision making performed by me. Departure Information Dispostion Being Evaluated By Hospitalist Problem Qualifiers
[2016-07-07] MEDS ORDERED: ALBUT/IPRATROP 3MG/0.5MG NEB 3 ML VIAL INH ONE (17:30)
[2016-07-07 17:42] VITALS: PULSE 82; O2SAT 96
[2016-07-07 17:42] LABS: COMPLETE YES; EOS % 3.2 %; HEMATOCRIT 35.2 % (37-47); IG% 0.3 %; LYMPH % 23.2 %; LYMPH ABS # 1.82 K/uL (1.2-3.4); MEAN CELL VOLUME 79.3 fL (80-100); MEAN CORPUSCULAR HEMOGLOBIN 25.2 pg (25-34); MEAN CORPUSCULAR HGB CONC 31.8 g/dl (32-36); MEAN PLATELET VOLUME 9.1 fL (7.4-10.4); MONO % 5.7 %; NEUT % 67.6 %; PLATELET COUNT 328 K/uL (130-400); RED BLOOD COUNT 4.44 M/uL (4.2-5.4); WHITE BLOOD COUNT 7.85 K/uL (4.8-10.8)
--- NOTE | 2016-07-07 17:47 | DIAGNOSTIC IMAGING REPORT ---
CHEST ONE VIEW PORTABLE HISTORY: EVALUATE RESPIRATORY DISTRESS.DYSPNEA COMPARISON: Chest CT 05/24/2016. FINDINGS: No focal lung consolidations to suggest pneumonia. No evidence for pulmonary edema. No pleural effusions. No pneumothorax. The heart is stable in size. IMPRESSION: No significant change compared to the prior study. No acute process. Electronically signed by: Livan Torres M.D. 07/07/2016 5:46 PM Dictated Date/Time: 07/07/2016 5:45 PM
[2016-07-07 17:51] LABS: PARTIAL THROMBOPLASTIN RATIO 1.1; PROTHROMBIN TIME (PATIENT) 10.2 SECONDS (9.0-12.0)
[2016-07-07] MEDS ORDERED: VTMD1000 PO (17:57)
[2016-07-07] MEDS ORDERED: CHOL1000 PO (17:57)
[2016-07-07] MEDS ORDERED: SERT50TA PO (17:57)
[2016-07-07] MEDS ORDERED: ALBU18002 INH (17:57)
[2016-07-07 18:08] LABS: VEN BLOOD GAS BASE EXCESS 3.9 mmol/L
[2016-07-07 18:12] LABS: ALT/SGPT 14 U/L (12-78); AST/SGOT 10 U/L (15-37); BLOOD UREA NITROGEN 10 mg/dl (7-18); BUN/CREATININE RATIO 11.5 (10-20); CALCIUM 8.9 mg/dl (8.5-10.1); CARBON DIOXIDE 29 mmol/L (21-32); CHLORIDE 111 mmol/L (98-107); CREATININE 0.86 mg/dl (0.60-1.20); GLUCOSE 92 mg/dl (70-99); MAGNESIUM 2.2 mg/dl (1.8-2.4); POTASSIUM 3.5 mmol/L (3.5-5.1); SODIUM 145 mmol/L (136-145)
[2016-07-07 18:17] LABS: ALKALINE PHOSPHATASE 93 U/L (45-117)
[2016-07-07] MEDS ORDERED: SODIUM CHLORIDE 0.9% 500ML 500 ML IV STA (19:26)
[2016-07-07 19:47] LABS: URINE APPEARANCE CLEAR (CLEAR); URINE BILIRUBIN NEG (NEG); URINE COLOR YELLOW; URINE EPITHELIAL CELL AUTO >30 /lpf (0-5); URINE NITRITE NEG (NEG); URINE PH 5.5 (4.5-7.5); URINE SPECIFIC GRAVITY 1.021 (1.000-1.030); UROBILINOGEN NEG (NEG)
[2016-07-07 19:57] LABS: MANUAL MICROSCOPIC REQUIRED? NO; REVIEW REQ? YES
[2016-07-07] MEDS ORDERED: NITROGLYCERIN 0.4 MG SL PER TAB CHARGE SL PRN (22:00)
[2016-07-07] MEDS ORDERED: POLYETHYLENE (MIRALAX) 17 GM PACK PO PRN (22:00)
[2016-07-07] MEDS ORDERED: ALBUTEROL HFA 8 GM INHALER INH PRN (22:00)
[2016-07-07] MEDS ORDERED: ALUMINUM/MAGNESIUM/SIMETH (MAALOX MAX) 30 ML UDC PO PRN (22:00)
[2016-07-07] MEDS ORDERED: ALBUT/IPRATROP 3MG/0.5MG NEB 3 ML VIAL INH PRN (22:00)
[2016-07-07] MEDS ORDERED: NYSTATIN SUSP 500,000 U/5 ML UDC PO PRN (22:00)
[2016-07-07] MEDS ORDERED: MAGNESIUM HYDROXIDE SUSP 30 ML UDC PO PRN (22:00)
[2016-07-07] MEDS ORDERED: ACETAMINOPHEN 325 MG TAB PO PRN (22:00)
--- NOTE | 2016-07-07 22:42 | HISTORY & PHYSICAL EXAMINATION ---
DATE OF ADMISSION: 07/07/2016 CHIEF COMPLAINT: Shortness of breath and cough. HISTORY OF PRESENT ILLNESS: A 66-year-old female with past medical history significant for COPD severe, chronic respiratory failure, on home oxygen, obstructive sleep apnea, history of alcohol dependence, in remission, history of tobacco use, but quit about 2-3 years ago, hyperlipidemia, history of irritable bowel syndrome, osteoporosis and GERD, presents with cough going on for the last one week, but it is not getting better and she has also been getting short of breath for the last couple of days. Some dizziness yesterday, no blurred vision. No chest pain; was nauseous, but no vomiting. No abdominal pain. Normal bowel and bladder movements. Appetite is okay. Lives with her son. Ambulates okay. Currently, having cough with whitish sputum. ALLERGIES: No known drug allergies. PAST MEDICAL HISTORY: As mentioned above. PAST SURGICAL HISTORY: Biopsy of the vulvoperineal region, EGD with biopsy, lumbar spine fusion surgery, neck spine fusion, appendectomy, tonsillectomy, cataract surgery, total hysterectomy. MEDICATIONS: The patient is on Lasix 20 mg p.o. daily, Zanaflex 2 mg every 6 hours p.r.n., Aleve 220 mg p.o. b.i.d. p.r.n., atorvastatin 10 mg p.o. at bedtime, Zoloft 50 mg p.o. daily, Ativan 1 mg t.i.d. p.r.n., Zofran 4 mg p.o. 8 hours p.r.n., tramadol 50 mg p.o. q. 6 hours p.r.n., Zantac 150 mg p.o. b.i.d., nystatin suspension 5 mL p.o. daily, gabapentin 300 mg p.o. t.i.d., Daliresp 500 mcg p.o. daily, Protonix 40 mg p.o. b.i.d., oxygen 2 liters continuously, Stiolto Respimat 2.5- 2.5mcg/act 2 doses inhalation daily, Pulmicort nebulization b.i.d., DuoNebs 4 times daily, albuterol 2 puffs daily, vitamin C 500 mg daily, vitamin D 1000 units p.o. daily. FAMILY HISTORY: Significant for brother has heart disorder, mother had MS, maternal grandmother has a heart disorder. SOCIAL HISTORY: Lives with her son. A former smoker, quit in June 2013, smoked 1.5 packs a day for 52 years. No alcohol use. No drug use. REVIEW OF SYMPTOMS: As per HPI. Rest of review of systems negative. PHYSICAL EXAMINATION: GENERAL: The patient is of moderate build, not in distress. VITAL SIGNS: Temperature 36.8, pulse 112, respiratory rate 20, blood pressure 140/82, oxygen 96% on 2 liters. HEENT: No pallor, no icterus. Pupils equal, round, and reactive to light. NECK: No JVD, no neck masses, no carotid bruits. CARDIOVASCULAR: S1, S2 heard. Tachycardia. No murmur, no gallop. RESPIRATORY SYSTEM: Clear to auscultation bilaterally. No wheezing, no crackles. ABDOMEN: Soft, bowel sounds present. Nontender. No distention. CENTRAL NERVOUS SYSTEM: Cranial nerves II-XII grossly intact. Nonfocal. EXTREMITIES: No edema, no erythema. LABS: WBC 7.8, hemoglobin 11.2, hematocrit 35.2, platelets 328. Sodium 140, potassium 3.5, chloride 111, CO2 29, BUN 10, creatinine 0.8, serum glucose 92. PT 10.2, INR 1, PTT 28.5. Urinalysis positive for leukocyte esterase. Chest x-ray, no significant change compared to the prior study. ASSESSMENT AND PLAN: This is a 66-year-old female, who presents with acute bronchitis and chronic obstructive pulmonary disease exacerbation. 1. Acute bronchitis, chronic obstructive pulmonary disease exacerbation. We will place her on IV Solu-Medrol, nebs around the clock and p.r.n. Continue home inhalers and the p.o. Levaquin. 2. Urinary tract infection, leukocyte esterase positive. We will follow the cultures. We will place her on Levaquin And follow the cultures. 3. Hyperlipidemia. Continue statin. 4. Depression and anxiety. Continue Zoloft and Ativan p.r.n. 5. Gastroesophageal reflux disease. Zantac. 6. Deep vein thrombosis prophylaxis, SCDs and TEDs for now. 7. Obstructive sleep apnea, CPAP DISPOSITION: Admit to tele floor. Expect to discharge home and follow with family doctor. Level 1. Full code. MTDD
[2016-07-07 23:29] VITALS: BP 104/64; PULSE 99; TEMP 36.8; Ht 172.7 cm; Wt 74.9 kg
[2016-07-07] MEDS: LEVOFLOXACIN 500 MG TAB PO SCH (23:49)
[2016-07-07] MEDS: TRAMADOL HCL 50 MG TAB PO PRN (23:55)
[2016-07-08] VITALS (10 sets, daily range): BP systolic 102–123; BP diastolic 60–74; PULSE 81–105; TEMP 36.5–37; O2SAT 95–99
[2016-07-08] MEDS ORDERED: STIOLTO~ORDER AWAITING ACTION SCH
[2016-07-08] MEDS: ALBUT/IPRATROP 3MG/0.5MG NEB 3 ML VIAL INH SCH ×4 (02:14→19:26)
[2016-07-08] MEDS: BUDESONIDE 0.5 MG/2 ML VIAL (PULMICORT) INH SCH ×2 (07:20→19:26)
[2016-07-08] MEDS: ROFLUMILAST 500 MCG TAB PO SCH (08:27)
[2016-07-08 08:28] LABS: COMPLETE YES; HEMATOCRIT 34.8 % (37-47); IG% 0.1 %; LYMPH % 10.7 %; LYMPH ABS # 0.83 K/uL (1.2-3.4); MEAN CELL VOLUME 79.3 fL (80-100); MEAN CORPUSCULAR HEMOGLOBIN 24.8 pg (25-34); MEAN CORPUSCULAR HGB CONC 31.3 g/dl (32-36); MEAN PLATELET VOLUME 9.2 fL (7.4-10.4); MONO % 3.6 %; NEUT % 85.6 %; PLATELET COUNT 346 K/uL (130-400); RED BLOOD COUNT 4.39 M/uL (4.2-5.4); WHITE BLOOD COUNT 7.74 K/uL (4.8-10.8)
[2016-07-08] MEDS: CHOLECALCIFEROL 1000 INTER.UNIT TAB PO SCH ×2 (08:28→21:47)
[2016-07-08] MEDS: SERTRALINE HCL 50 MG TAB PO SCH (08:28)
[2016-07-08] MEDS: RANITIDINE HCL 150 MG TAB PO SCH ×2 (08:28→21:46)
[2016-07-08] MEDS: GABAPENTIN 300 MG CAP PO SCH ×3 (08:29→21:47)
[2016-07-08] MEDS: FUROSEMIDE 20 MG TAB PO SCH (08:29)
[2016-07-08] MEDS: POTASSIUM CHLORIDE 20 MEQ TABCR PO SCH (08:29)
[2016-07-08] MEDS: PANTOprazole SOD 40 MG TAB PO SCH ×2 (08:30→21:46)
[2016-07-08] MEDS: HEPARIN SOD 5000 UNIT/0.5 ML CARP SQ SCH ×2 (08:31→21:46)
[2016-07-08] MEDS: METHYLPREDNISOLONE IV 40 MG in SYRINGE 0 ML IV SCH (08:31)
[2016-07-08] MEDS: TRAMADOL HCL 50 MG TAB PO PRN ×2 (08:43→21:45)
[2016-07-08] MEDS: LORAZEPAM 1 MG TAB PO PRN ×2 (08:43→21:44)
[2016-07-08 09:04] LABS: BUN/CREATININE RATIO 19.3 (10-20); CREATININE 0.69 mg/dl (0.60-1.20); MAGNESIUM 2.1 mg/dl (1.8-2.4); POTASSIUM 3.6 mmol/L (3.5-5.1)
[2016-07-08 09:08] LABS: CALCIUM 9.5 mg/dl (8.5-10.1)
[2016-07-08] MEDS: TIOTROPIUM BROMIDE-OLODATEROL 2.5-2.5MCG/ACT INH SCH (09:41)
[2016-07-08] MEDS: BENZONATATE 100MG CAP PO PRN ×2 (12:24→17:45)
--- NOTE | 2016-07-08 18:20 | Progress Note ---
Medicine Progress Note Date & Time of Visit: July 08, 2016 at 18:15. Subjective patient seen resting in bed, sitting up just had dinner states she feels the same as yesterday still has incessant , hard dry cough tessalon pearles not helping denies fever/chills, chest pain, palpitations no abdominal pain, nausea/vomiting reports left shoulder pain , proximal arm pain when moving s/p fall few weeks ago no other symptoms Objective Last 8 Hrs Date Time Temp Pulse Resp B/P Pulse Ox O2 Delivery O2 Flow Rate FiO2 07/08/16 15:30 36.9 105 18 106/60 97 Nasal Cannula 2.0 07/08/16 14:07 95 16 98 Nasal Cannula 2.0 07/08/16 12:10 Room Air 07/08/16 12:09 37.0 94 20 123/74 96 Nasal Cannula 2.0 Physical Exam: General- oriented x 3, not in distress, speaks in sentences with no effort, no acc muscles Head- atraumatic Eyes- EOMI, anicteric ENT- oropharynx clear Neck- supple, no JVD, no adenopathy, no thyromegaly;no bruits appreciated Lungs- clear to auscultation bilaterally, no rales/wheezing Heart- regular rhythm; no murmur, normal rate Abdomen- normal bowel sounds, soft, nontender, no masses Extremities- no pretibial edema, no calf tenderness; peripheral pulses intact left shoulder: no tenderness, no swelling, poor ROM with movement Neuro- alert, oriented x 3; no neuro deficits Skin- warm & dry Laboratory Results: Last 24 Hours Test 07/07/16 19:32 07/08/16 07:40 Urine Color YELLOW Urine Appearance CLEAR Urine pH 5.5 Urine Specific [place] 1.021 Urine Protein NEG Urine Glucose (UA) NEG Urine Ketones TRACE Urine Occult Blood 1+ Urine Nitrite NEG Urine Bilirubin NEG Urine Urobilinogen NEG Urine Leukocyte Esterase MODERATE Urine WBC (Auto) 10-30 /hpf Urine RBC (Auto) 5-10 /hpf Urine Hyaline Casts (Auto) 5-10 /lpf Urine Epithelial Cells (Auto) >30 /lpf Urine Bacteria (Auto) NEG Urine Crystals See comments White Blood Count 7.74 K/uL Red Blood Count 4.39 M/uL Hemoglobin 10.9 g/dL Hematocrit 34.8 % Mean Corpuscular Volume 79.3 fL Mean Corpuscular Hemoglobin 24.8 pg Mean Corpuscular Hemoglobin Concent 31.3 g/dl Platelet Count 346 K/uL Mean Platelet Volume 9.2 fL Neutrophils (%) (Auto) 85.6 % Lymphocytes (%) (Auto) 10.7 % Monocytes (%) (Auto) 3.6 % Eosinophils (%) (Auto) 0.0 % Basophils (%) (Auto) 0.0 % Neutrophils # (Auto) 6.62 K/uL Lymphocytes # (Auto) 0.83 K/uL Monocytes # (Auto) 0.28 K/uL Eosinophils # (Auto) 0.00 K/uL Basophils # (Auto) 0.00 K/uL RDW Standard Deviation 47.0 fL RDW Coefficient of Variation 16.0 % Immature Granulocyte % (Auto) 0.1 % Immature Granulocyte # (Auto) 0.01 K/uL Sodium Level 142 mmol/L Potassium Level 3.6 mmol/L Chloride Level 108 mmol/L Carbon Dioxide Level 26 mmol/L Anion Gap 8.0 mmol/L Blood Urea Nitrogen 13 mg/dl Creatinine 0.69 mg/dl Est Creatinine Clear Calc Drug Dose 79.8 ml/min Estimated GFR () 104.4 Estimated GFR (Non- 90.1 BUN/Creatinine Ratio 19.3 Random Glucose 111 mg/dl Calcium Level 9.5 mg/dl Magnesium Level 2.1 mg/dl Date/Time Source Procedure Growth Status 07/07/16 19:32 Urine , Clean Catch Urine Culture - Preliminary PIN-POINT GROWTH PRESENT, REINCUBATING. Resulted Assessment & Plan ASSESSMENT AND PLAN: This is a 66-year-old female, who presents with acute bronchitis and chronic obstructive pulmonary disease exacerbation. 1. Acute bronchitis, chronic obstructive pulmonary disease exacerbation. 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 Urinary tract infection, leukocyte esterase positive. - urine cultures pending - continue Levaquin Left Arm, Neck pain - check xrays to r/o fracture 3. Hyperlipidemia. - Continue statin. 4. Depression and anxiety. Continue Zoloft and Ativan p.r.n. 5. Gastroesophageal reflux disease. Zantac. 6. Deep vein thrombosis prophylaxis, SCDs and TEDs for now. 7. Obstructive sleep apnea, CPAP Current Inpatient Medications: Current Inpatient Medications Medications (Trade) Dose Ordered Sig/Edis Route Start Time Stop Time Status Last Admin Dose Admin Heparin Sodium (Porcine) (Heparin Sq 5000 Unit/0.5ml) 5,000 unit Q12 SQ 07/08/16 09:00 08/07/16 08:59 07/08/16 08:31 5,000 UNIT Acetaminophen (Tylenol Tab) 650 mg Q4H PRN PO 07/07/16 22:00 08/06/16 21:59 Al Hydrox/Mg Hydrox/Simethicone (Maalox Max Susp) 15 ml Q4H PRN PO 07/07/16 22:00 08/06/16 21:59 Magnesium Hydroxide (Milk Of Magnesia Susp) 30 ml Q12H PRN PO 07/07/16 22:00 08/06/16 21:59 Ondansetron HCl (Zofran Inj) 4 mg Q6H PRN IV 07/07/16 22:00 08/06/16 21:59 Nitroglycerin (Nitrostat Tab) 0.4 mg UD PRN SL 07/07/16 22:00 08/06/16 21:59 Polyethylene (Miralax Powder Packet) 17 gm DAILY PRN PO 07/07/16 22:00 08/06/16 21:59 Atorvastatin Calcium (Lipitor Tab) 10 mg HS PO 07/08/16 21:00 08/07/16 20:59 Cholecalciferol (Vitamin D Tab) 1,000 inter.unit QAM PO 07/08/16 09:00 08/07/16 08:59 07/08/16 08:28 1,000 INTER.UNIT Furosemide (Lasix Tab) 20 mg QAM PO 07/08/16 09:00 08/07/16 08:59 07/08/16 08:29 20 MG Gabapentin (Neurontin Cap) 300 mg TID PO 07/08/16 09:00 08/07/16 08:59 07/08/16 15:02 300 MG Albuterol/ Ipratropium (Duoneb) 3 ml Q6R INH 07/08/16 03:00 08/07/16 02:59 07/08/16 14:07 3 ML Lorazepam (Ativan Tab) 1 mg TID PRN PO 07/07/16 22:00 08/06/16 21:59 07/08/16 08:43 1 MG Nystatin (Mycostatin Susp) 5 ml QID PRN PO 07/07/16 22:00 07/17/16 21:59 Ondansetron HCl (Zofran Tab) 4 mg Q8 PRN PO 07/07/16 22:00 08/06/16 21:59 Pantoprazole Sodium (Protonix Tab) 40 mg BID PO 07/08/16 09:00 08/07/16 08:59 07/08/16 08:30 40 MG Potassium Chloride (Klor-Con Tab) 20 meq QAM PO 07/08/16 09:00 08/07/16 08:59 07/08/16 08:29 20 MEQ Ranitidine HCl (zANTac TAB) 150 mg BID PO 07/08/16 09:00 08/07/16 08:59 07/08/16 08:28 150 MG Roflumilast (Daliresp Tab) 500 mcg QAM PO 07/08/16 09:00 08/07/16 08:59 07/08/16 08:27 500 MCG Sertraline HCl (Zoloft Tab) 50 mg DAILY PO 07/08/16 09:00 08/07/16 08:59 07/08/16 08:28 50 MG Tizanidine HCl (Zanaflex Tab) 2 mg Q6 PO 07/08/16 00:00 08/07/16 00:00 07/07/16 23:49 2 MG Tramadol HCl (Ultram Tab) 50 mg Q6H PRN PO 07/07/16 22:00 08/06/16 21:59 07/08/16 08:43 50 MG Albuterol (Ventolin Hfa Inhaler) 2 puffs Q4H PRN INH 07/07/16 22:00 08/06/16 21:59 Ascorbic Acid (Vitamin C Tab) 500 mg HS PO 07/08/16 21:00 08/07/16 20:59 Budesonide 0.5 mg 0.5 mg BIDR INH 07/08/16 09:00 08/07/16 08:59 07/08/16 07:20 0.5 MG Methylprednisolone Sodium Succinate/ Syringe (Solu-Medrol IV/ Syringe) 0.64 ml @ 1.5 mls/min DAILY IV 07/08/16 09:00 08/07/16 08:59 07/08/16 08:31 1.5 MLS/MIN Albuterol/ Ipratropium (Duoneb) 3 ml Q4R PRN INH 07/07/16 22:00 08/06/16 21:59 Levofloxacin (Levaquin Tab) 500 mg HS PO 07/07/16 23:00 07/14/16 22:59 07/07/16 23:49 500 MG Tiotropium [place]/Olodaterol (Stiolto Respimat 2.5-2.5 Mcg/Act) 2 mcg DAILY INH 07/08/16 09:00 08/07/16 08:59 07/08/16 09:41 2 MCG Benzonatate (Tessalon Perles Cap) 100 mg TID PRN PO 07/08/16 11:45 08/07/16 11:44 07/08/16 17:45 100 MG
--- NOTE | 2016-07-08 20:51 | DIAGNOSTIC IMAGING REPORT ---
LEFT SHOULDER 3 VIEWS CLINICAL HISTORY: Left shoulder pain. FINDINGS: 3 views of the left shoulder are obtained. No prior studies are available for comparison at the time of dictation. The skeletal structures are osteopenic. There is no radiographic evidence of fracture or dislocation in the left shoulder. Mild productive degenerative change is seen at the acromioclavicular joint. The glenohumeral articulation is preserved. The overlying soft tissues are within normal limits. The imaged left upper lobe lung parenchyma appears clear. IMPRESSION: No acute bony abnormality is seen in the left shoulder. Dictated: 07/08/2016 8:49 PM Transcribed: 07/08/2016 8:51 PM [email or web address] Electronically signed by: Ariel Chen M.D. 07/08/2016 8:52 PM Dictated Date/Time: 07/08/2016 8:49 PM
--- NOTE | 2016-07-08 20:52 | DIAGNOSTIC IMAGING REPORT ---
LEFT HUMERUS 2 VIEWS CLINICAL HISTORY: Left arm pain. FINDINGS: AP and lateral views of the left humerus are obtained. No prior studies are available for comparison at the time of dictation. The skeletal structures are osteopenic. There is no radiographic evidence of left humeral fracture. The overlying soft tissues are within normal limits. The imaged left lung parenchyma appears clear. IMPRESSION: There is no radiographic evidence of left humeral fracture. Dictated: 07/08/2016 8:50 PM Transcribed: 07/08/2016 8:51 PM [email or web address] Electronically signed by: Ariel Chen M.D. 07/08/2016 8:52 PM Dictated Date/Time: 07/08/2016 8:50 PM
[2016-07-08] MEDS: HYDROCODONE/HOMATROPINE SYRUP 5MG/1.5MG 5ML UDP PO PRN (21:45)
[2016-07-08] MEDS: ATORVASTATIN 10 MG TAB PO SCH (21:47)
[2016-07-08] MEDS: LEVOFLOXACIN 500 MG TAB PO SCH (21:47)
[2016-07-08] MEDS: ASCORBIC ACID 500 MG TAB PO SCH (22:00)
--- NOTE | 2016-07-08 22:51 | DIAGNOSTIC IMAGING REPORT ---
CERVICAL SPINE, 3 VIEWS CLINICAL HISTORY: Neck pain. FINDINGS: AP, lateral, and odontoid views of the cervical spine are obtained. No prior studies are available for comparison at the time of dictation. The skeletal structures are osteopenic. There is no radiographic evidence of fracture or subluxation. Vertebral body height and alignment are maintained throughout the cervical spine. There is straightening of the cervical lordosis with mild reversal centered at C4-C5. The spinolaminar line is preserved. The odontoid process and lateral masses appear intact on the open-mouth view. There is near-complete bony fusion of C5, C6, and C7. Anterior osteophytes are seen at C4-C5. Moderate degenerative disc space narrowing is seen at C4-C5. Mild narrowing is seen at C3-C4. [Productive] degenerative change is noted at the atlantodental articulation on the lateral view. The prevertebral soft tissues are within normal limits. The patient is a edentulous. The imaged apical lung parenchyma appears clear. IMPRESSION: 1. There is no radiographic evidence of fracture or subluxation involving the cervical spine. 2. Osteopenia, spondylotic change, and near-complete bony fusion from C5 to C7 as above. Dictated: 07/08/2016 8:50 PM Transcribed: 07/08/2016 10:50 PM [email or web address] Electronically signed by: Ariel Chen M.D. 07/08/2016 10:54 PM Dictated Date/Time: 07/08/2016 8:50 PM
[2016-07-09] VITALS (10 sets, daily range): BP systolic 106–125; BP diastolic 65–74; PULSE 76–86; TEMP 36.4–36.9; O2SAT 95–99
[2016-07-09] MEDS: ALBUT/IPRATROP 3MG/0.5MG NEB 3 ML VIAL INH SCH ×4 (02:30→19:09)
[2016-07-09] MEDS: HYDROCODONE/HOMATROPINE SYRUP 5MG/1.5MG 5ML UDP PO PRN ×3 (04:11→21:41)
[2016-07-09] MEDS: BENZONATATE 100MG CAP PO PRN ×3 (04:36→21:40)
[2016-07-09 06:46] LABS: BASO % 0.1 %; BASO ABS # 0.01 K/uL (0-0.2); COMPLETE YES; EOS % 0.3 %; HEMATOCRIT 32.4 % (37-47); IG% 0.2 %; LYMPH % 20.8 %; LYMPH ABS # 2.32 K/uL (1.2-3.4); MEAN CELL VOLUME 81.2 fL (80-100); MEAN CORPUSCULAR HEMOGLOBIN 25.8 pg (25-34); MEAN CORPUSCULAR HGB CONC 31.8 g/dl (32-36); MEAN PLATELET VOLUME 9.2 fL (7.4-10.4); MONO % 6.7 %; NEUT % 71.9 %; PLATELET COUNT 301 K/uL (130-400); RED BLOOD COUNT 3.99 M/uL (4.2-5.4); WHITE BLOOD COUNT 11.16 K/uL (4.8-10.8)
[2016-07-09] MEDS: BUDESONIDE 0.5 MG/2 ML VIAL (PULMICORT) INH SCH ×2 (07:11→19:09)
[2016-07-09 07:17] LABS: BUN/CREATININE RATIO 22.8 (10-20); CALCIUM 8.5 mg/dl (8.5-10.1); CREATININE 0.81 mg/dl (0.60-1.20); MAGNESIUM 2.6 mg/dl (1.8-2.4); POTASSIUM 3.8 mmol/L (3.5-5.1)
[2016-07-09] MEDS: METHYLPREDNISOLONE IV 40 MG in SYRINGE 0 ML IV SCH ×2 (08:14→21:41)
[2016-07-09] MEDS: ROFLUMILAST 500 MCG TAB PO SCH (08:15)
[2016-07-09] MEDS: SERTRALINE HCL 50 MG TAB PO SCH (08:15)
[2016-07-09] MEDS: RANITIDINE HCL 150 MG TAB PO SCH ×2 (08:15→21:40)
[2016-07-09] MEDS: FUROSEMIDE 20 MG TAB PO SCH (08:15)
[2016-07-09] MEDS: GABAPENTIN 300 MG CAP PO SCH ×3 (08:15→21:40)
[2016-07-09] MEDS: POTASSIUM CHLORIDE 20 MEQ TABCR PO SCH (08:16)
[2016-07-09] MEDS: PANTOprazole SOD 40 MG TAB PO SCH ×2 (08:19→21:40)
[2016-07-09] MEDS: HEPARIN SOD 5000 UNIT/0.5 ML CARP SQ SCH ×3 (08:23→23:53)
[2016-07-09] MEDS: LORAZEPAM 1 MG TAB PO PRN ×2 (08:23→21:41)
[2016-07-09] MEDS: TRAMADOL HCL 50 MG TAB PO PRN ×2 (08:24→21:41)
[2016-07-09] MEDS: TIOTROPIUM BROMIDE-OLODATEROL 2.5-2.5MCG/ACT INH SCH (08:24)
[2016-07-09] MEDS ORDERED: DOCUSATE SODIUM/SENNA 50/8.6MG TAB PO ONE (14:30)
--- NOTE | 2016-07-09 14:34 | Progress Note ---
Medicine Progress Note Date & Time of Visit: July 09, 2016 at 14:18. Subjective sitting up in bed, comfortable states she still feels about the same as yesterday still has bouts of hard coughs, with clear sputum denies chest pain, palpitations, dyspnea no other symptoms Objective Last 8 Hrs Date Time Temp Pulse Resp B/P Pulse Ox O2 Delivery O2 Flow Rate FiO2 07/09/16 12:53 36.8 86 20 120/70 97 Nasal Cannula 2.0 07/09/16 08:00 Nasal Cannula 2.0 07/09/16 07:45 36.9 83 20 109/66 99 Nasal Cannula 2.0 07/09/16 07:10 76 16 98 Nasal Cannula 2.0 Physical Exam: General- oriented x 3, not in distress, speaks in sentences with no effort, no acc muscles Eyes- anicteric ENT- oropharynx clear Neck- supple, no JVD Lungs- clear breath sounds , no rales/wheezing bilaterally Heart- regular rhythm; no murmur, normal rate Abdomen- normal bowel sounds, soft, nontender Extremities- no pretibial edema, no calf tenderness; peripheral pulses intact left shoulder: no tenderness, no swelling, poor ROM with movement Neuro- alert, oriented x 3; no neuro deficits Skin- warm & dry Laboratory Results: Last 24 Hours Test 07/09/16 06:21 White Blood Count 11.16 K/uL Red Blood Count 3.99 M/uL Hemoglobin 10.3 g/dL Hematocrit 32.4 % Mean Corpuscular Volume 81.2 fL Mean Corpuscular Hemoglobin 25.8 pg Mean Corpuscular Hemoglobin Concent 31.8 g/dl Platelet Count 301 K/uL Mean Platelet Volume 9.2 fL Neutrophils (%) (Auto) 71.9 % Lymphocytes (%) (Auto) 20.8 % Monocytes (%) (Auto) 6.7 % Eosinophils (%) (Auto) 0.3 % Basophils (%) (Auto) 0.1 % Neutrophils # (Auto) 8.03 K/uL Lymphocytes # (Auto) 2.32 K/uL Monocytes # (Auto) 0.75 K/uL Eosinophils # (Auto) 0.03 K/uL Basophils # (Auto) 0.01 K/uL RDW Standard Deviation 51.0 fL RDW Coefficient of Variation 16.9 % Immature Granulocyte % (Auto) 0.2 % Immature Granulocyte # (Auto) 0.02 K/uL Sodium Level 144 mmol/L Potassium Level 3.8 mmol/L Chloride Level 109 mmol/L Carbon Dioxide Level 31 mmol/L Anion Gap 4.0 mmol/L Blood Urea Nitrogen 18 mg/dl Creatinine 0.81 mg/dl Est Creatinine Clear Calc Drug Dose 68.0 ml/min Estimated GFR () 87.1 Estimated GFR (Non- 75.2 BUN/Creatinine Ratio 22.8 Random Glucose 97 mg/dl Calcium Level 8.5 mg/dl Magnesium Level 2.6 mg/dl Assessment & Plan ASSESSMENT AND PLAN: This is a 66-year-old female, who presents with acute bronchitis and chronic obstructive pulmonary disease exacerbation. 1. Acute bronchitis, chronic obstructive pulmonary disease exacerbation. 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 Urinary tract infection, leukocyte esterase positive. - urine cultures group b beta strep - continue Levaquin Left Arm, Neck pain - xrays: no acute fracture - MRI of the left shoulder when pulmonary status improves 3. Hyperlipidemia. - Continue statin. 4. Depression and anxiety. Continue Zoloft and Ativan p.r.n. 5. Gastroesophageal reflux disease. PPI and Zantac. 6. Deep vein thrombosis prophylaxis - Heparin q8h 7. Obstructive sleep apnea, CPAP Disposition pending anticipate d/c home when medically stable Current Inpatient Medications: Current Inpatient Medications Medications (Trade) Dose Ordered Sig/Edis Route Start Time Stop Time Status Last Admin Dose Admin Heparin Sodium (Porcine) (Heparin Sq 5000 Unit/0.5ml) 5,000 unit Q12 SQ 07/08/16 09:00 08/07/16 08:59 07/09/16 08:23 5,000 UNIT Acetaminophen (Tylenol Tab) 650 mg Q4H PRN PO 07/07/16 22:00 08/06/16 21:59 Al Hydrox/Mg Hydrox/Simethicone (Maalox Max Susp) 15 ml Q4H PRN PO 07/07/16 22:00 08/06/16 21:59 Magnesium Hydroxide (Milk Of Magnesia Susp) 30 ml Q12H PRN PO 07/07/16 22:00 08/06/16 21:59 Ondansetron HCl (Zofran Inj) 4 mg Q6H PRN IV 07/07/16 22:00 08/06/16 21:59 Nitroglycerin (Nitrostat Tab) 0.4 mg UD PRN SL 07/07/16 22:00 08/06/16 21:59 Polyethylene (Miralax Powder Packet) 17 gm DAILY PRN PO 07/07/16 22:00 08/06/16 21:59 Atorvastatin Calcium (Lipitor Tab) 10 mg HS PO 07/08/16 21:00 08/07/16 20:59 07/08/16 21:47 10 MG Cholecalciferol (Vitamin D Tab) 1,000 inter.unit QAM PO 07/08/16 09:00 08/07/16 08:59 07/08/16 21:47 1,000 INTER.UNIT Furosemide (Lasix Tab) 20 mg QAM PO 07/08/16 09:00 08/07/16 08:59 07/09/16 08:15 20 MG Gabapentin (Neurontin Cap) 300 mg TID PO 07/08/16 09:00 08/07/16 08:59 07/09/16 08:15 300 MG Albuterol/ Ipratropium (Duoneb) 3 ml Q6R INH 07/08/16 03:00 08/07/16 02:59 07/09/16 14:02 3 ML Lorazepam (Ativan Tab) 1 mg TID PRN PO 07/07/16 22:00 08/06/16 21:59 07/09/16 08:23 1 MG Nystatin (Mycostatin Susp) 5 ml QID PRN PO 07/07/16 22:00 07/17/16 21:59 Ondansetron HCl (Zofran Tab) 4 mg Q8 PRN PO 07/07/16 22:00 08/06/16 21:59 Pantoprazole Sodium (Protonix Tab) 40 mg BID PO 07/08/16 09:00 08/07/16 08:59 07/09/16 08:19 40 MG Potassium Chloride (Klor-Con Tab) 20 meq QAM PO 07/08/16 09:00 08/07/16 08:59 07/09/16 08:16 20 MEQ Ranitidine HCl (zANTac TAB) 150 mg BID PO 07/08/16 09:00 08/07/16 08:59 07/09/16 08:15 150 MG Roflumilast (Daliresp Tab) 500 mcg QAM PO 07/08/16 09:00 08/07/16 08:59 07/09/16 08:15 500 MCG Sertraline HCl (Zoloft Tab) 50 mg DAILY PO 07/08/16 09:00 08/07/16 08:59 07/09/16 08:15 50 MG Tramadol HCl (Ultram Tab) 50 mg Q6H PRN PO 07/07/16 22:00 08/06/16 21:59 07/09/16 08:24 50 MG Albuterol (Ventolin Hfa Inhaler) 2 puffs Q4H PRN INH 07/07/16 22:00 08/06/16 21:59 Ascorbic Acid (Vitamin C Tab) 500 mg HS PO 07/08/16 21:00 08/07/16 20:59 07/08/16 22:00 500 MG Budesonide 0.5 mg 0.5 mg BIDR INH 07/08/16 09:00 08/07/16 08:59 07/09/16 07:11 0.5 MG Methylprednisolone Sodium Succinate/ Syringe (Solu-Medrol IV/ Syringe) 0.64 ml @ 1.5 mls/min DAILY IV 07/08/16 09:00 08/07/16 08:59 07/09/16 08:14 1.5 MLS/MIN Albuterol/ Ipratropium (Duoneb) 3 ml Q4R PRN INH 07/07/16 22:00 08/06/16 21:59 Levofloxacin (Levaquin Tab) 500 mg HS PO 07/07/16 23:00 07/14/16 22:59 07/08/16 21:47 500 MG Tiotropium [place]/Olodaterol (Stiolto Respimat 2.5-2.5 Mcg/Act) 2 mcg DAILY INH 07/08/16 09:00 08/07/16 08:59 07/09/16 08:24 2 MCG Benzonatate (Tessalon Perles Cap) 100 mg TID PRN PO 07/08/16 11:45 08/07/16 11:44 07/09/16 04:36 100 MG Hydrocodone Bit/ Homatropine Methylb (Hycodan Syrup) 5 ml Q6H PRN PO 07/08/16 18:15 07/22/16 18:14 07/09/16 04:11 5 ML
[2016-07-09] MEDS: ASCORBIC ACID 500 MG TAB PO SCH (21:39)
[2016-07-09] MEDS: LEVOFLOXACIN 500 MG TAB PO SCH (21:40)
[2016-07-09] MEDS: ATORVASTATIN 10 MG TAB PO SCH (21:41)
[2016-07-10] VITALS (11 sets, daily range): BP systolic 106–122; BP diastolic 53–72; PULSE 67–103; TEMP 36.6–37.3; O2SAT 95–98
[2016-07-10] MEDS: ALBUT/IPRATROP 3MG/0.5MG NEB 3 ML VIAL INH SCH ×4 (02:07→19:59)
[2016-07-10] MEDS: HYDROCODONE/HOMATROPINE SYRUP 5MG/1.5MG 5ML UDP PO PRN ×2 (04:38→20:10)
[2016-07-10 07:27] LABS: COMPLETE YES; HEMATOCRIT 34.7 % (37-47); IG% 0.3 %; LYMPH % 8.5 %; LYMPH ABS # 0.88 K/uL (1.2-3.4); MEAN CELL VOLUME 81.1 fL (80-100); MEAN CORPUSCULAR HGB CONC 30.8 g/dl (32-36); MEAN PLATELET VOLUME 9.2 fL (7.4-10.4); MONO % 3.9 %; NEUT % 87.3 %; PLATELET COUNT 332 K/uL (130-400); RED BLOOD COUNT 4.28 M/uL (4.2-5.4); WHITE BLOOD COUNT 10.38 K/uL (4.8-10.8)
[2016-07-10] MEDS: BUDESONIDE 0.5 MG/2 ML VIAL (PULMICORT) INH SCH ×2 (07:34→19:59)
[2016-07-10] MEDS: TIOTROPIUM BROMIDE-OLODATEROL 2.5-2.5MCG/ACT INH SCH (08:34)
[2016-07-10] MEDS: METHYLPREDNISOLONE IV 40 MG in SYRINGE 0 ML IV SCH ×2 (08:35→20:10)
[2016-07-10] MEDS: HEPARIN SOD 5000 UNIT/0.5 ML CARP SQ SCH ×2 (08:36→16:17)
[2016-07-10] MEDS: GABAPENTIN 300 MG CAP PO SCH ×3 (08:37→20:11)
[2016-07-10] MEDS: POTASSIUM CHLORIDE 20 MEQ TABCR PO SCH (08:37)
[2016-07-10] MEDS: CHOLECALCIFEROL 1000 INTER.UNIT TAB PO SCH (08:37)
[2016-07-10] MEDS: RANITIDINE HCL 150 MG TAB PO SCH ×2 (08:37→20:11)
[2016-07-10] MEDS: PANTOprazole SOD 40 MG TAB PO SCH ×2 (08:38→20:12)
[2016-07-10] MEDS: FUROSEMIDE 20 MG TAB PO SCH (08:38)
[2016-07-10] MEDS: ROFLUMILAST 500 MCG TAB PO SCH (08:38)
[2016-07-10 08:39] LABS: BUN/CREATININE RATIO 25.6 (10-20); CALCIUM 8.4 mg/dl (8.5-10.1); CREATININE 0.74 mg/dl (0.60-1.20); MAGNESIUM 2.5 mg/dl (1.8-2.4); POTASSIUM 4.1 mmol/L (3.5-5.1)
[2016-07-10] MEDS: SERTRALINE HCL 50 MG TAB PO SCH (08:39)
[2016-07-10] MEDS: LORAZEPAM 1 MG TAB PO PRN ×2 (08:50→20:10)
[2016-07-10] MEDS: TRAMADOL HCL 50 MG TAB PO PRN (08:50)
--- NOTE | 2016-07-10 10:06 | Pulmonary Consultation ---
History General Date of Service: July 10, 2016. Stated Complaint: Copd Exacerbation, Shortness Of Breath HPI The patient is a 66 year old female who presents to [facility] with complaints of Copd Exacerbation, Shortness Of Breath. The patient's primary care provider is North Clemons MD. 66y/o female with unknown degree of COPD (clinically very sever), EDAC (globally ), chronic oxygen dependence (2L nc), ELÍAS, GERD/ esophageal candidiasis and hx of ETOH dependence and diastolic heart failure admitted 07/07/2016 with cough ( whitish sputum) and progressive SOB. On ROS she also noted mild vertigo, nausea. She has been treated for acute bronchitis with: steroids, Levaquin, nebulizers and 2L nc oxygen support (SaO2: 92-98%). CXR (07/07/2016) was WNL. The patient is also noted to have a UTI (group B beta strep) and left arm pain ( radiographs WNL) MRI pending when pulmonary status is stable. Patient has been noting progressive GERD-type symptoms over the previous 4-7 days associated with cough at this time note severe GERD or last 24 hours. She currently denies : Fever, chills, productive cough, cardiac chest pain, pleurisy. Current Treatment: 1) Fabi-Medrol 40mg IV Q12 2) Heparin SC 5,000 Q8 3) Pantoprazole 40mg BID 4) Ranitidine 150mg BID 5) Roflumilast 500mcg QD 6) Budesonide 0.5mg Neb BID 7) Stiolto 2mcg QD 8) DuoNeb 9) Levaquin 500mg QD 10) Nystatin S&S QID Bronchoscopy 06/06/2016 o Posterior oropharynx: Malinpoty IV o Trachea: EDAC with 70% narrowing approximately [address] down the trachea o Right bronchial tree: o Right upper lobe: 70% EDAC o Bronchus intermedius: 90% EDAC o Findings: Notable for excessive dynamic airway collapse greatest in the bronchus intermedius o Left bronchial tree: o Left mainstem bronchus: 70% EDAC o Findings: 70% EDAC of the left main bronchus o Bronchial alveolar lavage: Microbiology: no growth to date final AFB pending Bronchoscopy 01/23/2017 o Microbiology: no growth Video Swallow (01/24/2016) o No signs of aspiration Echocardiogram 10/21/2015: o Trace loculated anterior pericardial effusion o Grade I diastolic dysfunction. o No significant valvular disease Pulmonary function test dated 08/03/2014 o FEV1/FVC: 73 o FEV1: 1.36/40 %----1.35------1% o FVC : 1.86/51 %----2.15----% change 15% o Bronchodilator change: Significant post bronchodilator change for FVC CT Thorax (05/24/2016) compared to (01/22/2016) o Stable RML nodule @ 9mm o Multiple 2-[address] angiogram 01/22/2016 of the thorax o No pulmonary embolism o Right middle lobe [address] abdomen without and with contrast date 03/01/1999 o No suspicious findings in the pelvis CT thorax without contrast 10/25/2011 o Tree-in-bud opacifications in the left upper lobe o Left upper lobe nodules, measuring up to [address] of the thorax 10/25/2011 nodules compared to 03/17/2012 o Stable very small lung o Ectasia of the ascending thoracic aorta measuring 3.[address] of the abdomen pelvis with IV contrast o 12/23/2016 no significant findings ABG 01/22/2016: 7.42/45/130/29 on 2 liters nasal cannula Historian: patient, EMS Review of Systems Constitutional: reports: weakness Eyes: reports: no symptoms ENT: reports: sore throat Cardiovascular: reports: no symptoms Respiratory: reports: cough Gastrointestinal: reports: as stated in HPI Genitourinary - Female: reports: no symptoms Musculoskeletal: reports: no symptoms Integumentary: reports: no symptoms Neurologic: reports: no symptoms Psychiatric: reports: no symptoms Endocrine: no symptoms Hematologic / Lymphatic: no symptoms Allergic / Immunologic: no symptoms Past Medical History Past Medical History: #1 COPD: Unknown severity #2 hypertension #3 cystic kidney disease #4 GERD #5 peptic ulcer disease #6 osteoporosis #7 vitamin D deficiency next line #8 thoracic aortic ectasia #9 ELÍAS: Currently on oxygen could not tolerate CPAP (refuses CPAP) #10 IVS #11 angina #12 L4/L5 spondylolisthesis #13 chronic anemia #14 Oxygen dependent 2L nc #15 esophageal candidiasis #16 EDAC #17 IBS Past Surgical History: #1 L3-L4 discectomy with foraminotomy 1999 #2 appendectomy #3 adenoidectomy #4 tonsillectomy #5 hysterectomy #6 6 left arm cyst excision #7 lumbar fusion health 5 through S1 2004 #8 colostomy #9 S1 through S1 laminectomy with fusion Family History Blood clots MOTHER Cardiac disorder BROTHER (congenital heart disease) FH: CHF (congestive heart failure) MOTHER FH: heart disease MOTHER GRANDMOTHER FH: lung disease Hypertension heart disease lung disease Hypertension Social History Hx Tobacco Use In Past Year?: No (QUIT 2013) Smoking Status: Former Smoker (greater than [id number] history) Alcohol: history of alcohol abuse Drug Use: none Occupational Status: unemployed, disabled Hx Tobacco Use In Past Year?: No (QUIT 3YRS AGO) Smoking Status: Never Smoker Alcohol: history of alcohol abuse Drug Use: none Marital status: single Occupational Status: retired Immunizations History of Influenza Vaccine: Yes Influenza Vaccine Date: Dec 16, 2015 History of Tetanus Vaccine?: Yes Tetanus Immunization Date: Sep 08, 2009 History of Pneumococcal: Yes Pneumococcal Date: Mar 17, 2014 Allergies Coded Allergies: No Known Allergies (Unverified , 06/23/16) PER PATIENT Current Medications Reported Home Medications Medications Dose Route/Sig Max Daily Dose Days Date Category Dose Instructions Vitamin D3 (Cholecalciferol) 1,000 Inter.unit Tab 2,000 Units PO QAM 07/07/16 Reported Vitamin D3 (Cholecalciferol) 1,000 Unit Tab 1 Tab PO QPM 90 07/07/16 Reported Proair Respiclick (Albuterol Sulfate) 108 Mcg/Act Aer 2 Puffs INH Q4 PRN 07/07/16 Reported Zoloft (Sertraline HCl) 50 Mg Tab 50 Mg PO DAILY 07/07/16 Reported Zofran (Ondansetron HCl) 4 Mg Tab 4 Mg PO Q8 PRN 06/06/16 Reported Tizanidine Hcl 4 Mg Cap 0.5 Tab PO Q6 06/06/16 Reported Protonix (Pantoprazole Sodium) 40 Mg Tab 40 Mg PO BID 03/13/16 Reported Daliresp (Roflumilast) 500 Mcg Tab 1 Tab PO QAM 30 03/03/16 Reported Stiolto Respimat 2.5-2.5 Mcg/Act (Tiotropium [place]-Olodaterol) 1 Aer Aer 2 Puffs INH DAILY 01/19/16 Reported INHALE 2 PUFFS DAILY Neurontin (Gabapentin) 300 Mg Cap 300 Mg PO TID 01/19/16 Reported Klor-Con (Potassium Chloride) 20 Meq Tabcr 20 Meq PO QAM 12/26/15 Reported Pulmicort (Budesonide (Inhalation)) 1 Mg/2 Ml Enedina 0.5 Mg NEB BID 10/21/15 Reported Lorazepam 1 Mg Tab 1 Mg PO TID PRN 10/21/15 Reported Ranitidine HCl 150 Mg Tab 150 Mg PO BID 10/21/15 Reported Atorvastatin Calcium (Atorvastatin) 10 Mg Tab 10 Mg PO HS 10/21/15 Reported Furosemide 20 Mg Tab 20 Mg PO QAM 10/21/15 Reported Oxygen Gas 2 Liters NA CONTINOUS 09/25/15 Reported ALWAYS USES HS/DURING DAY PRN Duoneb (Ipratropium-Albuterol) 3 Ml Nebu 3 Ml INH Q6 09/25/15 Reported Ultram (Tramadol HCl) 50 Mg Tab 50 Mg PO Q6H PRN 09/25/15 Reported Nystatin Suspension (Nystatin) 1 Ml Susp 5 Ml PO QID PRN 09/25/15 Reported SWISH AND SWALLOW Vitamin C (Ascorbic Acid) 500 Mg Cap 500 Mg PO HS 08/18/14 Reported Physical Physical Exam Vital Signs: Date Time Temp Pulse Resp B/P Pulse Ox O2 Delivery O2 Flow Rate FiO2 07/10/16 08:07 37.1 67 20 113/68 95 Nasal Cannula 2.0 07/10/16 07:33 76 16 95 Nasal Cannula 2.0 07/10/16 04:29 36.8 82 18 109/53 97 Nasal Cannula 2.0 07/10/16 04:00 Nasal Cannula 2.0 07/10/16 02:07 84 16 97 Nasal Cannula 2.0 07/10/16 00:02 Nasal Cannula 2.0 07/09/16 23:49 36.9 81 17 125/71 97 Nasal Cannula 2.0 07/09/16 20:00 Nasal Cannula 2.0 07/09/16 19:09 81 16 97 Nasal Cannula 2.0 07/09/16 19:02 36.4 82 22 125/74 95 Nasal Cannula 2.0 07/09/16 16:00 Nasal Cannula 2.0 07/09/16 15:22 36.8 84 22 111/66 96 Nasal Cannula 2.0 07/09/16 14:02 84 16 95 Nasal Cannula 2.0 07/09/16 12:53 36.8 86 20 120/70 97 Nasal Cannula 2.0 07/09/16 12:00 Nasal Cannula 2.0 General Appearance: WELL-APPEARING, NO APPARENT DISTRESS Head: NORMOCEPHALIC, ATRAUMATIC Eyes: PERRLA, NO DISCHARGE, EOMI, SCLERAE NORMAL ENT: NORMAL EAR EXAM, NORMAL NASAL EXAM, NORMAL MOUTH EXAM, NORMAL THROAT EXAM Neck: NORMAL RANGE OF MOTION, NO TENDERNESS, TRACHEA MIDLINE, NO STRIDOR, SUPPLE, NO THYROMEGALY Respiratory: BREATH SOUNDS NORMAL, CLEAR TO AUSCULTATION, CLEAR TO PERCUSSION Cardiovasular: REGULAR RATE/RHYTHM, NORMAL S1S2, NO M/G/R, NO MURMUR, NO GALLOP Abdomen: NON TENDER, NORMAL BOWEL SOUNDS, NO REBOUND, NO MASSES, NO GUARDING, NO ORGANOMEGALY, NORMAL RECTAL EXAM, NO HEMORRHOIDS, NO HERNIA, NO OCCULT BLOOD Genitourinary - Female: EXTERNAL GENITALIA NORMAL Back: NORMAL INSPECTION, NO MIDLINE TENDERNESS, NO CVA TENDERNESS, NO PARAVERTEBRAL TTP, NORMAL RANGE OF MOTION Upper Extremities: NO EDEMA, NO DEFORMITY, NORMAL ROM Lower Extremities: NO EDEMA, NO DEFORMITY, NORMAL ROM Pulses: carotid (R) (1+), carotid (L) (1+), posterior tibial (R), posterior tibial (L) (2+) Neuro: ALERT, ORIENTED x 3, NORMAL MOTOR EXAM, NORMAL SENSATION, NORMAL CEREBELLAR EXAM, NORMAL SPEECH, NORMAL GAIT Reflexes: biceps (R) (2+), bicpes (L) (2+), patellar (R) (2+), patellar (L) (2+ ) Babinski Testing: right (downgoing), left (downgoing) Psychiatric: NORMAL AFFECT, NO SUICIDAL IDEATION, CONTRACTS FOR SAFETY Diagnostics Labs Results Past 24 Hours Test 07/10/16 06:55 Range/Units White Blood Count 10.38 4.8-10.8 K/uL Red Blood Count 4.28 4.2-5.4 M/uL Hemoglobin 10.7 12.0-16.0 g/dL Hematocrit 34.7 37-47 % Mean Corpuscular Volume 81.1 80-100 fL Mean Corpuscular Hemoglobin 25.0 25-34 pg Mean Corpuscular Hemoglobin Concent 30.8 32-36 g/dl Platelet Count 332 130-400 K/uL Mean Platelet Volume 9.2 7.4-10.4 fL Neutrophils (%) (Auto) 87.3 % Lymphocytes (%) (Auto) 8.5 % Monocytes (%) (Auto) 3.9 % Eosinophils (%) (Auto) 0.0 % Basophils (%) (Auto) 0.0 % Neutrophils # (Auto) 9.07 1.4-6.5 K/uL Lymphocytes # (Auto) 0.88 1.2-3.4 K/uL Monocytes # (Auto) 0.40 0.11-0.59 K/uL Eosinophils # (Auto) 0.00 0-0.5 K/uL Basophils # (Auto) 0.00 0-0.2 K/uL RDW Standard Deviation 49.9 36.4-46.3 fL RDW Coefficient of Variation 16.6 11.5-14.5 % Immature Granulocyte % (Auto) 0.3 % Immature Granulocyte # (Auto) 0.03 0.00-0.02 K/uL Sodium Level 143 136-145 mmol/L Potassium Level 4.1 3.5-5.1 mmol/L Chloride Level 108 98-107 mmol/L Carbon Dioxide Level 28 21-32 mmol/L Anion Gap 7.0 3-11 mmol/L Blood Urea Nitrogen 19 7-18 mg/dl Creatinine 0.74 0.60-1.20 mg/dl Est Creatinine Clear Calc Drug Dose 74.4 ml/min Estimated GFR () 97.2 Estimated GFR (Non- 83.8 BUN/Creatinine Ratio 25.6 10-20 Random Glucose 113 70-99 mg/dl Calcium Level 8.4 8.5-10.1 mg/dl Magnesium Level 2.5 1.8-2.4 mg/dl Radiology Interpretation: CXR NORMAL EKG Interpretation: NORMAL EKG Impression Assessment and Plan 66-year-old female with chronic history of COPD (extent and verified), GERD ( esophageal candidiasis), EDAC, diastolic heart failure, ELÍAS and chronic cough: #1 Acute on Chronic Cough: Patient's chronic cough is most likely multifactorial with EDAC, GERD and COPD as contributing factors. Thoracic ultrasound shows no signs of intraparenchymal edema at this time. At this time I will initiate the patient on CPAP therapy starting at 8 cm of water pressure for ELÍAS and EDAC. I will attempt to set up for bronchoscopy for proper EDAC water pressure support and the patient will need outpatient titration study/ polysomnogram. Also believe patient needs a VEE/24 pH monitor for notable GERD. Recent endoscopy shows no signs of recurrence per the patient of esophageal candidiasis. #2 COPD: Patient has long history of smoking but pulmonary function test do not find COPD but she does have notable reversibility/significant other FVC sub- continuing current treatment but will titrate down on IV steroids to by mouth steroids tomorrow initiating at 60 mg oral daily. Suggest we continue inhaled steroids, Roflumilast, LAMA and nebulizer treatments. #3 ELÍAS: Patient does have a history of sleep apnea states she will initiate BiPAP therapy at this time we'll try to obtain nasal mask. #4 EDAC: Patient with nonexcessive dynamic airway collapse 24-hour CPAP with bronchoscopy titration his current standard of care. Possible outpatient trial of stent placement for evaluation of tracheoplasty is warranted but not as she is having acute exacerbation of COPD/bronchitis. #5: ID: Suggest we increase Levaquin to 750 mg daily as this is the COPD/ pneumonia's-bronchitis in hospital coverage dosing.
[2016-07-10] MEDS: BENZONATATE 100MG CAP PO PRN (16:19)
[2016-07-10] MEDS: LEVOFLOXACIN 750 MG TAB PO SCH (20:10)
[2016-07-10] MEDS: ATORVASTATIN 10 MG TAB PO SCH (20:11)
[2016-07-10] MEDS: ASCORBIC ACID 500 MG TAB PO SCH (20:12)
[2016-07-11] VITALS (12 sets, daily range): BP systolic 104–128; BP diastolic 62–78; PULSE 67–89; TEMP 36.5–36.8; O2SAT 91–99
[2016-07-11] MEDS: ALBUT/IPRATROP 3MG/0.5MG NEB 3 ML VIAL INH SCH ×4 (02:00→20:32)
[2016-07-11] MEDS: BUDESONIDE 0.5 MG/2 ML VIAL (PULMICORT) INH SCH ×2 (07:12→19:50)
[2016-07-11] MEDS: BENZONATATE 100MG CAP PO PRN (07:40)
[2016-07-11] MEDS: DOCUSATE SODIUM/SENNA 50/8.6MG TAB PO PRN (07:40)
[2016-07-11] MEDS: CHOLECALCIFEROL 1000 INTER.UNIT TAB PO SCH (07:41)
[2016-07-11] MEDS: RANITIDINE HCL 150 MG TAB PO SCH ×2 (07:41→20:40)
[2016-07-11] MEDS: PANTOprazole SOD 40 MG TAB PO SCH ×2 (07:41→20:39)
[2016-07-11] MEDS: POTASSIUM CHLORIDE 20 MEQ TABCR PO SCH (07:42)
[2016-07-11] MEDS: ROFLUMILAST 500 MCG TAB PO SCH (07:42)
[2016-07-11] MEDS: GABAPENTIN 300 MG CAP PO SCH ×3 (07:42→20:40)
[2016-07-11] MEDS: FUROSEMIDE 20 MG TAB PO SCH (07:42)
[2016-07-11] MEDS: TIOTROPIUM BROMIDE-OLODATEROL 2.5-2.5MCG/ACT INH SCH (07:43)
[2016-07-11] MEDS: SERTRALINE HCL 50 MG TAB PO SCH (07:43)
--- NOTE | 2016-07-11 11:34 | PROGRESS NOTE ---
DATE: 07/11/2016 DATE: 07/11/2016. PROBLEM LIST: Includes: 1. Chronic obstructive pulmonary disease. 2. Excessive dynamic airway collapse. 3. Chronic oxygen dependent. 4. Sleep apnea. 5. Acute on chronic cough. SUBJECTIVE: The patient reports that she is about the same but states that her breathing is about the same. No increased wheezing, no increased chest heaviness or tightness. No increased shortness of breath, no chest pain or painful respirations at this time. She does still have some cough but is not really able to expectorate a lot at present. There was some question that she may have bronchoscopic evaluation done today. She denies any other concerns or problems. No sweats, no fevers, no chills. No pleuritic or cardiac chest pain. OBJECTIVE: GENERAL: The patient is a 66-year-old female lying in bed in no acute distress. She is alert and oriented x3. Mood is good, affect is good. VITAL SIGNS: Temp 36.5, pulse 85, respirations 18, blood pressure is 124/77, pulse ox 96% on 2 liters. HEAD, EYES, EARS, NOSE, AND THROAT: Normocephalic, atraumatic. Pupils equal, round react to light and accommodation. Extraocular movements are intact. [place] moist gingival and buccal mucosa. NECK: Supple. There is no mass. No adenopathy. No bruit. CHEST: Diminished breath sounds bilaterally. The patient has few tiny expiratory wheeze, no rale or rhonchi noted. CARDIOVASCULAR: Regular rate and rhythm. No murmurs, gallops or rubs. ABDOMEN: Soft, nontender. No guarding, rigidity or organomegaly. Bowel sounds present. EXTREMITIES: No erythema or edema. No cyanosis or clubbing noted. NEUROLOGIC: Cranial nerves II through XII are intact. No focal deficit noted. No new lab data. No new imaging data. IMPRESSION: 1. A 66-year-old female who is having acute on chronic cough. At this point, she is about where she was yesterday according to the patient. Per Dr. Abdi's note he planned on hopefully doing a bronchoscopy for proper EDAC water pressure support through CPAP which the patient tolerating fairly well. It was also felt that her chronic cough may be secondary to gastroesophageal reflux disease as well as COPD. At this point, continue to monitor. 2. Chronic obstructive pulmonary disease, longstanding history of smoking. Continue on current prednisone dose. 3. Sleep apnea. 4. Excessive dynamic airway collapse. PLAN: Continue current medications as they are. The patient is on 60 mg of prednisone orally, seems to be tolerating it well. She is also tolerating levofloxacin. Continue aggressive pulmonary toilet. Will discuss with Dr. Abdi when he is planning on doing bronchoscopy for the patient. After discussion with Dr Abdi, she will have the bronchoscopy done as an outpatient to determine the optimal CPAP pressure. She was given a diet and she will eat today. Patient and case reviewed and I agree with the plan of action. JADD
[2016-07-11] MEDS: HYDROCODONE/HOMATROPINE SYRUP 5MG/1.5MG 5ML UDP PO PRN ×2 (13:15→23:12)
[2016-07-11] MEDS: TRAMADOL HCL 50 MG TAB PO PRN (19:14)
[2016-07-11] MEDS ORDERED: LIDODERM (LIDOCAINE) PATCH 5% TD ONE (20:18)
--- NOTE | 2016-07-11 20:23 | Progress Note ---
Medicine Progress Note Date & Time of Visit: July 11, 2016 at 20:23. Subjective resting in bed, comfortable sitting up in bed states cough is less, breathing is improving still has left shoulder pain, also some posterior neck pain no other symptoms Objective Last 8 Hrs Date Time Temp Pulse Resp B/P Pulse Ox O2 Delivery O2 Flow Rate FiO2 07/11/16 19:59 36.6 72 16 123/78 95 Room Air 07/11/16 16:14 36.8 85 18 104/62 91 Room Air 07/11/16 16:00 Nasal Cannula 2.0 07/11/16 14:25 79 16 96 Room Air Physical Exam: General- oriented x 3, not in distress, speaks in sentences with no effort, no acc muscles Neck- no JVD Lungs- clear breath sounds , no rales/wheezes bilaterally Heart- regular rhythm; no murmur, normal rate Abdomen- normal bowel sounds, soft, nontender Extremities- no pretibial edema, no calf tenderness; peripheral pulses intact left shoulder: no tenderness, no swelling, poor ROM with movement Neuro- alert, oriented x 3; no neuro deficits Skin- warm & dry Assessment & Plan ASSESSMENT AND PLAN: This is a 66-year-old female, with chronic history of COPD (extent and verified), GERD (esophageal candidiasis), EDAC, diastolic heart failure, ELÍAS and chronic cough: who presents with possible acute bronchitis and chronic obstructive pulmonary disease exacerbation. Acute bronchitis, chronic obstructive pulmonary disease exacerbation with Persistent Cough - chronic cough likely multifactorial:Excessive Dynamic Airway Collapse, GERD, ELÍAS - no wheezing on exam, remains on 2 liters by nasal cannula cough improving - cxr: no pneumonia - PRN Hycodan Solumedrol changed to Prednisone Nebs, Levaquin use CPAP as much as possible - Pulm recommending repeat Bronch as outpatient, patient prefers to be done during this admission need to discuss with Pulmonary - [employer]ENT aware inquiry performed no issues identified r/o Urinary tract infection - eukocyte esterase positive. - urine cultures group b beta strep - on Levaquin Left Arm, Neck pain s/p Accidental Fall - xrays: no acute fracture - MRI of the left shoulder to r/o Tear Cervical Spine xray to r/o Fracture - Lidoderm Patch Obstructive sleep apnea CPAP Hyperlipidemia - Continue statin Depression and anxiety - Continue Zoloft and Ativan p.r.n. Gastroesophageal reflux disease. PPI and Zantac. Deep vein thrombosis prophylaxis - Heparin q8h Disposition pending anticipate d/c home when medically stable, cleared by Pulmonary Current Inpatient Medications: Current Inpatient Medications Medications (Trade) Dose Ordered Sig/Edis Route Start Time Stop Time Status Last Admin Dose Admin Acetaminophen (Tylenol Tab) 650 mg Q4H PRN PO 07/07/16 22:00 08/06/16 21:59 Al Hydrox/Mg Hydrox/Simethicone (Maalox Max Susp) 15 ml Q4H PRN PO 07/07/16 22:00 08/06/16 21:59 Magnesium Hydroxide (Milk Of Magnesia Susp) 30 ml Q12H PRN PO 07/07/16 22:00 08/06/16 21:59 Ondansetron HCl (Zofran Inj) 4 mg Q6H PRN IV 07/07/16 22:00 08/06/16 21:59 Nitroglycerin (Nitrostat Tab) 0.4 mg UD PRN SL 07/07/16 22:00 08/06/16 21:59 Polyethylene (Miralax Powder Packet) 17 gm DAILY PRN PO 07/07/16 22:00 08/06/16 21:59 Atorvastatin Calcium (Lipitor Tab) 10 mg HS PO 07/08/16 21:00 08/07/16 20:59 07/10/16 20:11 10 MG Cholecalciferol (Vitamin D Tab) 1,000 inter.unit QAM PO 07/08/16 09:00 08/07/16 08:59 07/11/16 07:41 1,000 INTER.UNIT Furosemide (Lasix Tab) 20 mg QAM PO 07/08/16 09:00 08/07/16 08:59 07/11/16 07:42 20 MG Gabapentin (Neurontin Cap) 300 mg TID PO 07/08/16 09:00 08/07/16 08:59 07/11/16 13:15 300 MG Albuterol/ Ipratropium (Duoneb) 3 ml Q6R INH 07/08/16 03:00 08/07/16 02:59 07/11/16 14:25 3 ML Lorazepam (Ativan Tab) 1 mg TID PRN PO 07/07/16 22:00 08/06/16 21:59 07/10/16 20:10 1 MG Nystatin (Mycostatin Susp) 5 ml QID PRN PO 07/07/16 22:00 07/17/16 21:59 Ondansetron HCl (Zofran Tab) 4 mg Q8 PRN PO 07/07/16 22:00 08/06/16 21:59 Pantoprazole Sodium (Protonix Tab) 40 mg BID PO 07/08/16 09:00 08/07/16 08:59 07/11/16 07:41 40 MG Potassium Chloride (Klor-Con Tab) 20 meq QAM PO 07/08/16 09:00 08/07/16 08:59 07/11/16 07:42 20 MEQ Ranitidine HCl (zANTac TAB) 150 mg BID PO 07/08/16 09:00 08/07/16 08:59 07/11/16 07:41 150 MG Roflumilast (Daliresp Tab) 500 mcg QAM PO 07/08/16 09:00 08/07/16 08:59 07/11/16 07:42 500 MCG Sertraline HCl (Zoloft Tab) 50 mg DAILY PO 07/08/16 09:00 08/07/16 08:59 07/11/16 07:43 50 MG Tramadol HCl (Ultram Tab) 50 mg Q6H PRN PO 07/07/16 22:00 08/06/16 21:59 07/11/16 19:14 50 MG Albuterol (Ventolin Hfa Inhaler) 2 puffs Q4H PRN INH 07/07/16 22:00 08/06/16 21:59 Ascorbic Acid (Vitamin C Tab) 500 mg HS PO 07/08/16 21:00 08/07/16 20:59 07/10/16 20:12 500 MG Budesonide (Pulmicort Respules 0.5MG/ 2ML Neb Soln) 0.5 mg BIDR INH 07/08/16 09:00 08/07/16 08:59 07/11/16 07:12 0.5 MG Albuterol/ Ipratropium (Duoneb) 3 ml Q4R PRN INH 07/07/16 22:00 08/06/16 21:59 Tiotropium [place]/Olodaterol (Stiolto Respimat 2.5-2.5 Mcg/Act) 2 mcg DAILY INH 07/08/16 09:00 08/07/16 08:59 07/11/16 07:43 2 MCG Benzonatate (Tessalon Perles Cap) 100 mg TID PRN PO 07/08/16 11:45 08/07/16 11:44 07/11/16 07:40 100 MG Hydrocodone Bit/ Homatropine Methylb (Hycodan Syrup) 5 ml Q6H PRN PO 07/08/16 18:15 07/22/16 18:14 07/11/16 13:15 5 ML Senna/Docusate Sodium (Senokot S Tab) 1 tab DAILY PRN PO 07/09/16 14:30 08/08/16 14:29 07/11/16 07:40 1 TAB Levofloxacin (Levaquin Tab) 750 mg HS PO 07/10/16 21:00 07/14/16 20:59 07/10/16 20:10 750 MG Prednisone (PredniSONE TAB) 60 mg QD@08 PO 07/11/16 08:00 08/10/16 07:59 07/11/16 07:40 60 MG
--- NOTE | 2016-07-11 20:23 | Progress Note ---
Medicine Progress Note Date & Time of Visit: July 11, 2016 at 20:22. Subjective delayed entry date of service 07/10/16 patient seen sitting up in bed, using laptop states breathing is about the same, still has the same cough no chest pain no other symptoms Objective Last 8 Hrs Date Time Temp Pulse Resp B/P Pulse Ox O2 Delivery O2 Flow Rate FiO2 07/11/16 19:59 36.6 72 16 123/78 95 Room Air 07/11/16 16:14 36.8 85 18 104/62 91 Room Air 07/11/16 16:00 Nasal Cannula 2.0 07/11/16 14:25 79 16 96 Room Air Physical Exam: General- oriented x 3, not in distress, speaks in sentences with no effort, no acc muscles Eyes- anicteric Neck- no JVD Lungs- clear breath sounds bilaterally Heart- regular rhythm; no murmur, normal rate Abdomen- normal bowel sounds, soft, nontender Extremities- no pretibial edema, no calf tenderness; peripheral pulses intact left shoulder: no tenderness, no swelling, poor ROM with movement Neuro- alert, oriented x 3; no neuro deficits Skin- warm & dry Assessment & Plan ASSESSMENT AND PLAN: This is a 66-year-old female, with chronic history of COPD (extent and verified), GERD (esophageal candidiasis), EDAC, diastolic heart failure, ELÍAS and chronic cough: who presents with possible acute bronchitis and chronic obstructive pulmonary disease exacerbation. 1. Acute bronchitis, chronic obstructive pulmonary disease exacerbation with Persistent Cough - chronic cough likely multifactorial:Excessive Dynamic Airway Collapse, GERD, ELÍAS - no wheezing on exam, remains on 2 liters by nasal cannula still has persistent cough - cxr: no pneumonia - added Hycodan increase Solumedrol to 40mg q12h continue Nebs, Levaquin monitor - discussed with Dr. 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 Urinary tract infection, leukocyte esterase positive. - urine cultures group b beta strep - on Levaquin Left Arm, Neck pain - xrays: no acute fracture - MRI of the left shoulder when pulmonary status improves 3. Hyperlipidemia. - Continue statin. 4. Depression and anxiety. Continue Zoloft and Ativan p.r.n. 5. Gastroesophageal reflux disease. PPI and Zantac. 6. Deep vein thrombosis prophylaxis - Heparin q8h 7. Obstructive sleep apnea, CPAP Disposition pending anticipate d/c home when medically stable Current Inpatient Medications: Current Inpatient Medications Medications (Trade) Dose Ordered Sig/Edis Route Start Time Stop Time Status Last Admin Dose Admin Acetaminophen (Tylenol Tab) 650 mg Q4H PRN PO 07/07/16 22:00 08/06/16 21:59 Al Hydrox/Mg Hydrox/Simethicone (Maalox Max Susp) 15 ml Q4H PRN PO 07/07/16 22:00 08/06/16 21:59 Magnesium Hydroxide (Milk Of Magnesia Susp) 30 ml Q12H PRN PO 07/07/16 22:00 08/06/16 21:59 Ondansetron HCl (Zofran Inj) 4 mg Q6H PRN IV 07/07/16 22:00 08/06/16 21:59 Nitroglycerin (Nitrostat Tab) 0.4 mg UD PRN SL 07/07/16 22:00 08/06/16 21:59 Polyethylene (Miralax Powder Packet) 17 gm DAILY PRN PO 07/07/16 22:00 08/06/16 21:59 Atorvastatin Calcium (Lipitor Tab) 10 mg HS PO 07/08/16 21:00 08/07/16 20:59 07/10/16 20:11 10 MG Cholecalciferol (Vitamin D Tab) 1,000 inter.unit QAM PO 07/08/16 09:00 08/07/16 08:59 07/11/16 07:41 1,000 INTER.UNIT Furosemide (Lasix Tab) 20 mg QAM PO 07/08/16 09:00 08/07/16 08:59 07/11/16 07:42 20 MG Gabapentin (Neurontin Cap) 300 mg TID PO 07/08/16 09:00 08/07/16 08:59 07/11/16 13:15 300 MG Albuterol/ Ipratropium (Duoneb) 3 ml Q6R INH 07/08/16 03:00 08/07/16 02:59 07/11/16 14:25 3 ML Lorazepam (Ativan Tab) 1 mg TID PRN PO 07/07/16 22:00 08/06/16 21:59 07/10/16 20:10 1 MG Nystatin (Mycostatin Susp) 5 ml QID PRN PO 07/07/16 22:00 07/17/16 21:59 Ondansetron HCl (Zofran Tab) 4 mg Q8 PRN PO 07/07/16 22:00 08/06/16 21:59 Pantoprazole Sodium (Protonix Tab) 40 mg BID PO 07/08/16 09:00 08/07/16 08:59 07/11/16 07:41 40 MG Potassium Chloride (Klor-Con Tab) 20 meq QAM PO 07/08/16 09:00 08/07/16 08:59 07/11/16 07:42 20 MEQ Ranitidine HCl (zANTac TAB) 150 mg BID PO 07/08/16 09:00 08/07/16 08:59 07/11/16 07:41 150 MG Roflumilast (Daliresp Tab) 500 mcg QAM PO 07/08/16 09:00 08/07/16 08:59 07/11/16 07:42 500 MCG Sertraline HCl (Zoloft Tab) 50 mg DAILY PO 07/08/16 09:00 08/07/16 08:59 07/11/16 07:43 50 MG Tramadol HCl (Ultram Tab) 50 mg Q6H PRN PO 07/07/16 22:00 08/06/16 21:59 07/11/16 19:14 50 MG Albuterol (Ventolin Hfa Inhaler) 2 puffs Q4H PRN INH 07/07/16 22:00 08/06/16 21:59 Ascorbic Acid (Vitamin C Tab) 500 mg HS PO 07/08/16 21:00 08/07/16 20:59 07/10/16 20:12 500 MG Budesonide (Pulmicort Respules 0.5MG/ 2ML Neb Soln) 0.5 mg BIDR INH 07/08/16 09:00 08/07/16 08:59 07/11/16 07:12 0.5 MG Albuterol/ Ipratropium (Duoneb) 3 ml Q4R PRN INH 07/07/16 22:00 08/06/16 21:59 Tiotropium [place]/Olodaterol (Stiolto Respimat 2.5-2.5 Mcg/Act) 2 mcg DAILY INH 07/08/16 09:00 08/07/16 08:59 07/11/16 07:43 2 MCG Benzonatate (Tessalon Perles Cap) 100 mg TID PRN PO 07/08/16 11:45 08/07/16 11:44 07/11/16 07:40 100 MG Hydrocodone Bit/ Homatropine Methylb (Hycodan Syrup) 5 ml Q6H PRN PO 07/08/16 18:15 07/22/16 18:14 07/11/16 13:15 5 ML Senna/Docusate Sodium (Senokot S Tab) 1 tab DAILY PRN PO 07/09/16 14:30 08/08/16 14:29 07/11/16 07:40 1 TAB Levofloxacin (Levaquin Tab) 750 mg HS PO 07/10/16 21:00 07/14/16 20:59 07/10/16 20:10 750 MG Prednisone (PredniSONE TAB) 60 mg QD@08 PO 07/11/16 08:00 08/10/16 07:59 07/11/16 07:40 60 MG
[2016-07-11] MEDS: ASCORBIC ACID 500 MG TAB PO SCH (20:39)
[2016-07-11] MEDS: LEVOFLOXACIN 750 MG TAB PO SCH (20:40)
[2016-07-11] MEDS: ATORVASTATIN 10 MG TAB PO SCH (20:40)
[2016-07-11] MEDS: LORAZEPAM 1 MG TAB PO PRN (20:41)
--- NOTE | 2016-07-11 21:51 | DIAGNOSTIC IMAGING REPORT ---
MRI LEFT SHOULDER NO CONTRAST CLINICAL HISTORY: Left shoulder pain status post trauma COMPARISON STUDY: Conventional radiographic study dated 07/08/2016 FINDINGS: Imaging was performed the paracoronal, sagittal, and axial planes. There is an old [place]-Sachs deformity. There is an old Bankart lesion. The bicipital tendon appears intact. There is no bicipital subluxation. Posterior to the changes are present within the glenohumeral joint. There is supraspinatus tendinopathy. There are no findings to indicate a full-thickness tear. There is a linear focus of decreased T1 and T2 signal within the proximal humeral metaphysis with surrounding edema. This may represent a healing nondisplaced fracture. IMPRESSION: 1. Suspected healing nondisplaced fracture of the proximal humeral metaphysis 2. [place]-Sachs and Bankart lesions 3. Supraspinatus tendinopathy. No evidence of full-thickness tear or tendinous retraction. Electronically signed by: Rosas Brigsg M.D. 07/11/2016 9:50 PM Dictated Date/Time: 07/11/2016 9:44 PM
--- NOTE | 2016-07-11 22:13 | DIAGNOSTIC IMAGING REPORT ---
CERVICAL SPINE 2 OR 3 VIEWS CLINICAL HISTORY: Neck pain with left arm radiculopathy. History of trauma. COMPARISON STUDY: 07/08/2016 FINDINGS: There is C5-C7 fusion. There are degenerative changes with disc space narrowing osteophyte formation the C4-5 level. There is a slight reversal the normal cervical lordosis. No acute fractures are visualized on conventional radiographic imaging IMPRESSION: 1. No acute fractures identified. 2. Degenerative changes most pronounced the C4-5 level. 3. C5-C7 bony fusion Electronically signed by: Rosas Briggs M.D. 07/11/2016 10:11 PM Dictated Date/Time: 07/11/2016 10:10 PM
[2016-07-12] VITALS (15 sets, daily range): BP systolic 108–127; BP diastolic 60–77; PULSE 64–93; TEMP 36.5–37.3; O2SAT 91–99
[2016-07-12] MEDS: ALBUT/IPRATROP 3MG/0.5MG NEB 3 ML VIAL INH SCH ×4 (02:40→19:33)
[2016-07-12] MEDS: BENZONATATE 100MG CAP PO PRN (07:14)
[2016-07-12] MEDS: TIOTROPIUM BROMIDE-OLODATEROL 2.5-2.5MCG/ACT INH SCH (07:14)
[2016-07-12] MEDS: GABAPENTIN 300 MG CAP PO SCH ×3 (07:15→21:33)
[2016-07-12] MEDS: ROFLUMILAST 500 MCG TAB PO SCH (07:15)
[2016-07-12] MEDS: RANITIDINE HCL 150 MG TAB PO SCH ×2 (07:16→21:34)
[2016-07-12] MEDS: SERTRALINE HCL 50 MG TAB PO SCH (07:16)
[2016-07-12] MEDS: FUROSEMIDE 20 MG TAB PO SCH (07:16)
[2016-07-12] MEDS: CHOLECALCIFEROL 1000 INTER.UNIT TAB PO SCH (07:16)
[2016-07-12] MEDS: PANTOprazole SOD 40 MG TAB PO SCH ×2 (07:17→21:33)
[2016-07-12] MEDS: POTASSIUM CHLORIDE 20 MEQ TABCR PO SCH (07:17)
[2016-07-12] MEDS: BUDESONIDE 0.5 MG/2 ML VIAL (PULMICORT) INH SCH ×2 (07:23→19:33)
[2016-07-12] MEDS: LORAZEPAM 1 MG TAB PO PRN ×2 (07:25→21:35)
[2016-07-12] MEDS: TRAMADOL HCL 50 MG TAB PO PRN ×2 (07:25→21:35)
--- NOTE | 2016-07-12 11:23 | Consultant Recommendations ---
Interrelated Special Education Teacher Recommendations Date of Service July 12, 2016. Interrelated Special Education Teacher Recommendations Patient is set up for a followup office visit on 08-15-16 at9:30 at the [facility].
--- NOTE | 2016-07-12 11:25 | PROGRESS NOTE ---
DATE: 07/12/2016 DATE: 07/12/2016. PROBLEM LIST: Includes: 1. Chronic obstructive pulmonary disease. 2. Excessive dynamic airway collapse. 3. Oxygen dependence. 4. Sleep apnea. 5. Acute on chronic cough. SUBJECTIVE: The patient reports cough is slowly improving. Still has some cough but is not as bad as it was. States that she was able to tolerate the CPAP for about 2 hours last night but then it bothered her nose. Currently, she does not have CPAP at home and states that overall she is feeling a little bit better. She still gets some shortness of breath with exertion, but she has been moving around without difficulty. She has no chest pain or painful respirations. No chest heaviness or tightness. She denies any other concerns or problems at this time. OBJECTIVE: GENERAL: The patient is a 66-year-old female in no acute distress. She is alert and oriented x3. Mood is good. Affect is good. VITAL SIGNS: Temp 36.8, pulse 69, respiration 18, blood pressure is 108/69, pulse ox 97% on 2 liters. HEAD, EYES, EARS, NOSE, AND THROAT: Normocephalic, atraumatic. Pupils equal, round and reactive to light and accommodation. Extraocular movements are intact. [place] moist gingival and buccal mucosa. NECK: Supple. No mass. No adenopathy. No bruit. CHEST: Diminished breath sounds. No appreciated wheeze at this time. No rale or rhonchi noted. CARDIOVASCULAR: Regular rate and rhythm. No murmurs, gallops or rubs. ABDOMEN: Bowel sounds are present. Abdomen soft, nontender. No guarding, rigidity or organomegaly. EXTREMITIES: No erythema or edema. No new lab data. No new chest x-ray. IMPRESSION: This is a 66-year-old female with excessive dynamic airway collapse was started on CPAP, has not really used it a whole lot yet, is trying to get used to it. At this time we did discuss the bronchoscopy that Dr. Abdi wanted done as an outpatient. I would like for the patient to try get accustomed to using the CPAP prior to doing the follow-up bronchoscopy for the EDAC, maximum pressurization. Explained this to the patient. She was okay with this. I would like her to try and be on it for about 4-6 weeks and then will see her in the office. At this point, I think we can continue on prednisone with a slow taper, finish 10-day course of Levaquin, continue aggressive pulmonary toilet. The patient has been moving around the room. I think it would be good to have her ambulate some but no reason why the patient would not be able to be discharged within the next 24-48 hours. She will need an order for CPAP with humidification with a pressure of 8 cm of water on discharge. She apparently uses [facility] for her oxygen. She is agreeable to having her CPAP go through there. I think that she will tolerate a nasal pillow much better than full face mask but depending on how she does may need to use a full face mask. She is agreeable to this. Chronic cough, multifactorial secondary to COPD, smoking history, gastroesophageal reflux disease. Plan is to continue working with CPAP, steroid taper as above, CPAP use as above. Continue to follow during hospitalization, but from pulmonary perspective, I feel that she would be stable for discharge within the next 24-48 hours. Patient and case reviewed. Agree with plan. AMARA
[2016-07-12] MEDS: HYDROCODONE/HOMATROPINE SYRUP 5MG/1.5MG 5ML UDP PO PRN (12:34)
[2016-07-12] MEDS: ONDANSETRON INJ 2 MG/ML 2 ML VIAL IV PRN ×2 (15:17→23:47)
[2016-07-12] MEDS: LEVOFLOXACIN 750 MG TAB PO SCH (21:32)
[2016-07-12] MEDS: ATORVASTATIN 10 MG TAB PO SCH (21:32)
[2016-07-12] MEDS: LIDODERM (LIDOCAINE) PATCH 5% TD SCH (21:34)
[2016-07-12] MEDS: ASCORBIC ACID 500 MG TAB PO SCH (21:34)
--- NOTE | 2016-07-12 22:53 | Progress Note ---
Internal Med Progress Note Date of Service: July 12, 2016. Provider Documentation: SUBJECTIVE: cough has improved continues to feel tired and weak no fever or chills OBJECTIVE: Vital Signs-as noted below Exam: General-no sign of distress Eyes-sclera non icteric Lungs-diminished, no rales or wheeze noted Heart-regular S1/S2 Abdomen-soft, non tender Extremities-no lower ext edema Neuro-AAO x3, no focal deficit Lab data as noted below. ASSESSMENT & PLAN: Acute bronchitis, chronic obstructive pulmonary disease exacerbation with Persistent Cough - chronic cough likely multifactorial:Excessive Dynamic Airway Collapse, GERD, ELÍAS - clinically improving -respiratory status remains stable , no hypoxia -on PO Prednisone -appreciate input form Pulmonology Urinary tract infection - leukocyte esterase positive. - urine cultures group b beta strep - on Levaquin Left Arm, Neck pain s/p Accidental Fall -had fall as she tripped -slipper being trapped in door edge - xrays: no acute fracture - MRI of the left shoulder - 1. Suspected healing nondisplaced fracture of the proximal humeral metaphysis 2. [place]-Sachs and Bankart lesions 3. Supraspinatus tendinopathy. cont pain control Obstructive sleep apnea CPAP Hyperlipidemia - Continue statin Depression and anxiety - Continue Zoloft and Ativan p.r.n. Gastroesophageal reflux disease. PPI and Zantac. DVT PROPHYLAXIS sub Q heparin DISPOSITION discharge home when medically stable Medicine follow up with Dr Clemons Vital Signs: Date Time Temp Pulse Resp B/P Pulse Ox O2 Delivery O2 Flow Rate FiO2 07/13/16 20:00 Nasal Cannula 2.0 07/13/16 19:26 93 14 96 Nasal Cannula 2.0 07/13/16 19:24 36.8 89 18 107/65 95 Nasal Cannula 2.0 Humidified Oxygen 07/13/16 16:00 Nasal Cannula 2.0 07/13/16 15:31 37.0 86 16 111/68 97 Nasal Cannula 2.0 Humidified Oxygen 07/13/16 14:22 81 14 97 Nasal Cannula 2.0 07/13/16 12:00 Nasal Cannula 2.0 07/13/16 11:42 37.4 80 18 105/65 97 2.0 07/13/16 08:00 Nasal Cannula 2.0 07/13/16 07:49 36.6 89 20 103/64 98 2.0 07/13/16 07:10 86 16 98 Nasal Cannula 2.0 07/13/16 04:00 98 Nasal Cannula 2.0 07/13/16 02:58 36.7 70 20 118/69 98 Nasal Cannula 2.0 07/13/16 02:48 76 98 2.0 07/13/16 01:55 74 16 98 BiPAP/CPAP 2.0 07/13/16 00:01 96 CPAP 2.0 07/12/16 23:25 36.6 70 19 117/72 96 CPAP 2.0 07/12/16 23:09 76 98 2.0
[2016-07-13] VITALS (14 sets, daily range): BP systolic 101–118; BP diastolic 64–69; PULSE 68–93; TEMP 36.4–37.4; O2SAT 95–98
[2016-07-13] MEDS: BUDESONIDE 0.5 MG/2 ML VIAL (PULMICORT) INH SCH ×2 (07:10→19:25)
[2016-07-13] MEDS: ALBUT/IPRATROP 3MG/0.5MG NEB 3 ML VIAL INH SCH ×3 (07:10→19:25)
[2016-07-13] MEDS: TIOTROPIUM BROMIDE-OLODATEROL 2.5-2.5MCG/ACT INH SCH (08:25)
[2016-07-13] MEDS: SERTRALINE HCL 50 MG TAB PO SCH (08:26)
[2016-07-13] MEDS: BENZONATATE 100MG CAP PO PRN (08:26)
[2016-07-13] MEDS: POTASSIUM CHLORIDE 20 MEQ TABCR PO SCH (08:27)
[2016-07-13] MEDS: RANITIDINE HCL 150 MG TAB PO SCH ×2 (08:27→20:24)
[2016-07-13] MEDS: CHOLECALCIFEROL 1000 INTER.UNIT TAB PO SCH (08:27)
[2016-07-13] MEDS: ROFLUMILAST 500 MCG TAB PO SCH (08:28)
[2016-07-13] MEDS: FUROSEMIDE 20 MG TAB PO SCH (08:28)
[2016-07-13] MEDS: PANTOprazole SOD 40 MG TAB PO SCH ×2 (08:28→20:25)
[2016-07-13] MEDS: GABAPENTIN 300 MG CAP PO SCH ×3 (08:29→20:24)
[2016-07-13] MEDS: LORAZEPAM 1 MG TAB PO PRN ×2 (08:32→20:28)
[2016-07-13] MEDS: ONDANSETRON INJ 2 MG/ML 2 ML VIAL IV PRN (08:32)
[2016-07-13] MEDS: HYDROCODONE/HOMATROPINE SYRUP 5MG/1.5MG 5ML UDP PO PRN ×2 (08:32→23:16)
[2016-07-13] MEDS: TRAMADOL HCL 50 MG TAB PO PRN ×2 (10:28→20:28)
--- NOTE | 2016-07-13 14:58 | Pulmonology Progress Note ---
Pulmonary Progress Note Date of Service July 13, 2016. Attending Dr. Abdi Subjective Dyspnea modestly improved. Cough persists. Reports some constant indigestion. No emesis. No fevers or chills. Sleeping poorly. Attempted CPAP but short-lived secondary to nasal discomfort. Objective 66-year-old female admitted to [facility] with 1 week history of progressive cough, dyspnea, nausea, and musculoskeletal complaints. PMHx is notable for oxygen-dependent COPD (2 LPM QHS), normal tobacco abuse, GERD, IBS, peptic ulcer disease, untreated ELÍAS (initial study - unknown), grade 1 diastolic dysfunction, and right middle lobe 9mm pulmonary nodule. She is a former smoker smoking 60 pack year quite 06/2013. The patient history is notable for bronchoscopy 05/2016 notable for excessive dynamic airway collapse of the trachea and bilateral bronchial trees. Patient is treated with steroid, cough suppressant, duo nebs, and Levaquin along with CPAP 8cm H20 QHS (attempting) for underlying airway collapse. Today: - O2: 98% - 2LPM - Afebrile, HD stable - WBC/Hgb/Hct/Plts: 10.38/10.7/34.7/332 - Cr: 0.74, Co2: 28 Physical Exam: Constitutional: Well developed, elderly female lying in hospital bed. No acute distress. Head: + facial symmetry Eyes: EOMi, PERRLA, no conjunctival injection Mouth: Mallampati [I]. Moist mucous membranes No erythema, exudate, or post nasal gtt Neck: Trachea midline. No adenopathy or masses Respiratory: Non-labored respirations. Cough on forced expirations. Slight extension of expiratory phase. No audible wheeze, rales or rhonchi. No clubbing or cyanosis. Cardiovascular: Rapid rate with regular rhythm, no MRG. +2 radial pulses. <1s capillary refill. Abdomen: soft, active bowel sounds Integumentary: no rashes, or ecchymosis MSK/Extremities: Moving and developed symmetrically. No peripheral edema. No calf tenderness. Neurologic: A&O, data recall in-tact. Appropriate affect. Assessment & Plan 66-yo female admitted exacerbation of COPD and Group B-bega strep UTI: 1. 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 EDAC and h/o ELÍAS: - CPAP 8cm H20 as an in-patient and should contact outpatient pulmonary office on discharge for outpatient set-up and studies 3. 9mm pulmonary nodule in high-risk patient: repeat non-contrasted CT chest in July 2016 per guidelines Patient reviewed and plan agreed with Data Medications: Current Inpatient Medications Medications (Trade) Dose Ordered Sig/Edis Route Start Time Stop Time Status Last Admin Dose Admin Acetaminophen (Tylenol Tab) 650 mg Q4H PRN PO 07/07/16 22:00 08/06/16 21:59 Al Hydrox/Mg Hydrox/Simethicone (Maalox Max Susp) 15 ml Q4H PRN PO 07/07/16 22:00 08/06/16 21:59 Magnesium Hydroxide (Milk Of Magnesia Susp) 30 ml Q12H PRN PO 07/07/16 22:00 08/06/16 21:59 Ondansetron HCl (Zofran Inj) 4 mg Q6H PRN IV 07/07/16 22:00 08/06/16 21:59 07/13/16 08:32 4 MG Nitroglycerin (Nitrostat Tab) 0.4 mg UD PRN SL 07/07/16 22:00 08/06/16 21:59 Polyethylene (Miralax Powder Packet) 17 gm DAILY PRN PO 07/07/16 22:00 08/06/16 21:59 Atorvastatin Calcium (Lipitor Tab) 10 mg HS PO 07/08/16 21:00 08/07/16 20:59 07/12/16 21:32 10 MG Cholecalciferol (Vitamin D Tab) 1,000 inter.unit QAM PO 07/08/16 09:00 08/07/16 08:59 07/13/16 08:27 1,000 INTER.UNIT Furosemide (Lasix Tab) 20 mg QAM PO 07/08/16 09:00 08/07/16 08:59 07/13/16 08:28 20 MG Gabapentin (Neurontin Cap) 300 mg TID PO 07/08/16 09:00 08/07/16 08:59 07/13/16 08:29 300 MG Albuterol/ Ipratropium (Duoneb) 3 ml Q6R INH 07/08/16 03:00 08/07/16 02:59 07/13/16 14:21 3 ML Lorazepam (Ativan Tab) 1 mg TID PRN PO 07/07/16 22:00 08/06/16 21:59 07/13/16 08:32 1 MG Nystatin (Mycostatin Susp) 5 ml QID PRN PO 07/07/16 22:00 07/17/16 21:59 Ondansetron HCl (Zofran Tab) 4 mg Q8 PRN PO 07/07/16 22:00 08/06/16 21:59 Pantoprazole Sodium (Protonix Tab) 40 mg BID PO 07/08/16 09:00 08/07/16 08:59 07/13/16 08:28 40 MG Potassium Chloride (Klor-Con Tab) 20 meq QAM PO 07/08/16 09:00 08/07/16 08:59 07/13/16 08:27 20 MEQ Ranitidine HCl (zANTac TAB) 150 mg BID PO 07/08/16 09:00 08/07/16 08:59 07/13/16 08:27 150 MG Roflumilast (Daliresp Tab) 500 mcg QAM PO 07/08/16 09:00 08/07/16 08:59 07/13/16 08:28 500 MCG Sertraline HCl (Zoloft Tab) 50 mg DAILY PO 07/08/16 09:00 08/07/16 08:59 07/13/16 08:26 50 MG Tramadol HCl (Ultram Tab) 50 mg Q6H PRN PO 07/07/16 22:00 08/06/16 21:59 07/13/16 10:28 50 MG Albuterol (Ventolin Hfa Inhaler) 2 puffs Q4H PRN INH 07/07/16 22:00 08/06/16 21:59 Ascorbic Acid (Vitamin C Tab) 500 mg HS PO 07/08/16 21:00 08/07/16 20:59 07/12/16 21:34 500 MG Budesonide (Pulmicort Respules 0.5MG/ 2ML Neb Soln) 0.5 mg BIDR INH 07/08/16 09:00 08/07/16 08:59 07/13/16 07:10 0.5 MG Albuterol/ Ipratropium (Duoneb) 3 ml Q4R PRN INH 07/07/16 22:00 08/06/16 21:59 Tiotropium [place]/Olodaterol (Stiolto Respimat 2.5-2.5 Mcg/Act) 2 mcg DAILY INH 07/08/16 09:00 08/07/16 08:59 07/13/16 08:25 2 MCG Benzonatate (Tessalon Perles Cap) 100 mg TID PRN PO 07/08/16 11:45 08/07/16 11:44 07/13/16 08:26 100 MG Hydrocodone Bit/ Homatropine Methylb (Hycodan Syrup) 5 ml Q6H PRN PO 07/08/16 18:15 07/22/16 18:14 07/13/16 08:32 5 ML Senna/Docusate Sodium (Senokot S Tab) 1 tab DAILY PRN PO 07/09/16 14:30 08/08/16 14:29 07/11/16 07:40 1 TAB Levofloxacin (Levaquin Tab) 750 mg HS PO 07/10/16 21:00 07/14/16 20:59 07/12/16 21:32 750 MG Prednisone (PredniSONE TAB) 60 mg QD@08 PO 07/11/16 08:00 08/10/16 07:59 07/13/16 08:27 60 MG Lidocaine (Lidoderm Patch 5%) 1 patch PM TD 07/12/16 21:00 08/11/16 20:59 07/12/16 21:34 1 PATCH Miscellaneous (Remove Lidoderm Patch) 1 ea DAILY@0900 N/A 07/12/16 09:00 08/11/16 08:59 07/13/16 08:35 1 EA I & O: 24-Hour Column 07/13/16 08:00 Intake Total 1165 ml Balance 1165 ml Vital Signs: Date Time Temp Pulse Resp B/P Pulse Ox O2 Delivery O2 Flow Rate FiO2 07/13/16 14:22 81 14 97 Nasal Cannula 2.0 07/13/16 12:00 Nasal Cannula 2.0 07/13/16 11:42 37.4 80 18 105/65 97 2.0 07/13/16 08:00 Nasal Cannula 2.0 07/13/16 07:49 36.6 89 20 103/64 98 2.0 07/13/16 07:10 86 16 98 Nasal Cannula 2.0 07/13/16 04:00 98 Nasal Cannula 2.0 07/13/16 02:58 36.7 70 20 118/69 98 Nasal Cannula 2.0 07/13/16 02:48 76 98 2.0 07/13/16 01:55 74 16 98 BiPAP/CPAP 2.0 07/13/16 00:01 96 CPAP 2.0 07/12/16 23:25 36.6 70 19 117/72 96 CPAP 2.0 07/12/16 23:09 76 98 2.0 07/12/16 20:00 91 Nasal Cannula 2.0 07/12/16 19:34 79 16 94 Nasal Cannula 2.0 07/12/16 19:17 36.8 84 16 111/66 91 Room Air 07/12/16 16:00 Nasal Cannula 2.0 07/12/16 15:37 37.3 93 16 116/60 94 Nasal Cannula 2.0
[2016-07-13] MEDS: LIDODERM (LIDOCAINE) PATCH 5% TD SCH (20:23)
[2016-07-13] MEDS: LEVOFLOXACIN 750 MG TAB PO SCH (20:23)
[2016-07-13] MEDS: ASCORBIC ACID 500 MG TAB PO SCH (20:24)
[2016-07-13] MEDS: ATORVASTATIN 10 MG TAB PO SCH (20:24)
[2016-07-13] MEDS: ONDANSETRON 4 MG TAB PO PRN (21:27)
--- NOTE | 2016-07-13 21:46 | Progress Note ---
Internal Med Progress Note Date of Service: July 13, 2016. Provider Documentation: SUBJECTIVE: has minimum cough , no SOB complains of feeling of stomach upset all the time mentions of seeing GI -had EGD /USG -all studies being normal feels tired and lack of energy -all the symptoms has been going on for past several months appetite is poor , lost wt few months back , gained wt after cholecystectomy last months no nausea or abdominal pain , bowel movement normal tolerating diet well OBJECTIVE: Vital Signs-as noted below Exam: General-no sign of distress Eyes-sclera non icteric Lungs-diminished, no rales or wheeze noted Heart-regular S1/S2 Abdomen-soft, non tender ,active bowel sound Extremities-no lower ext edema Neuro-AAO x3, no focal deficit Lab data as noted below. ASSESSMENT & PLAN: Acute bronchitis, chronic obstructive pulmonary disease exacerbation cough has resolved - chronic cough likely multifactorial:Excessive Dynamic Airway Collapse, GERD, ELÍAS - clinically improved to baseline -respiratory status remains stable , no hypoxia -on PO Prednisone -appreciate input form Pulmonology possible discharge home with out pt follow up with pulmonology GENERALIZED WEAKNESS /FATIGUE: check TSH in am lab Urinary tract infection - leukocyte esterase positive. - urine cultures group b beta strep - on Levaquin Left Arm, Neck pain s/p Accidental Fall -had fall as she tripped -slipper being trapped in door edge - xrays: no acute fracture - MRI of the left shoulder - 1. Suspected healing nondisplaced fracture of the proximal humeral metaphysis 2. [place]-Sachs and Bankart lesions 3. Supraspinatus tendinopathy. cont pain control offered for home PT pt refused , Obstructive sleep apnea CPAP Hyperlipidemia - Continue statin Depression and anxiety - Continue Zoloft and Ativan p.r.n. Gastroesophageal reflux disease. PPI and Zantac. DVT PROPHYLAXIS sub Q heparin DISPOSITION discharge home tomorrow Medicine follow up with Dr Clemons Vital Signs: Date Time Temp Pulse Resp B/P Pulse Ox O2 Delivery O2 Flow Rate FiO2 07/13/16 20:00 Nasal Cannula 2.0 07/13/16 19:26 93 14 96 Nasal Cannula 2.0 07/13/16 19:24 36.8 89 18 107/65 95 Nasal Cannula 2.0 Humidified Oxygen 07/13/16 16:00 Nasal Cannula 2.0 07/13/16 15:31 37.0 86 16 111/68 97 Nasal Cannula 2.0 Humidified Oxygen 07/13/16 14:22 81 14 97 Nasal Cannula 2.0 07/13/16 12:00 Nasal Cannula 2.0 07/13/16 11:42 37.4 80 18 105/65 97 2.0 07/13/16 08:00 Nasal Cannula 2.0 07/13/16 07:49 36.6 89 20 103/64 98 2.0 07/13/16 07:10 86 16 98 Nasal Cannula 2.0 07/13/16 04:00 98 Nasal Cannula 2.0 07/13/16 02:58 36.7 70 20 118/69 98 Nasal Cannula 2.0 07/13/16 02:48 76 98 2.0 07/13/16 01:55 74 16 98 BiPAP/CPAP 2.0 07/13/16 00:01 96 CPAP 2.0 07/12/16 23:25 36.6 70 19 117/72 96 CPAP 2.0 07/12/16 23:09 76 98 2.0
[2016-07-14] VITALS (11 sets, daily range): BP systolic 102–124; BP diastolic 66–76; PULSE 67–92; TEMP 36.7–37; O2SAT 90–98
[2016-07-14] MEDS: ALBUT/IPRATROP 3MG/0.5MG NEB 3 ML VIAL INH SCH ×4 (02:08→19:05)
[2016-07-14] MEDS: BUDESONIDE 0.5 MG/2 ML VIAL (PULMICORT) INH SCH ×2 (07:09→19:05)
[2016-07-14] MEDS: LORAZEPAM 1 MG TAB PO PRN ×2 (09:05→21:47)
[2016-07-14] MEDS: HYDROCODONE/HOMATROPINE SYRUP 5MG/1.5MG 5ML UDP PO PRN ×2 (09:05→23:10)
[2016-07-14] MEDS: GABAPENTIN 300 MG CAP PO SCH ×3 (09:06→21:45)
[2016-07-14] MEDS: PANTOprazole SOD 40 MG TAB PO SCH ×2 (09:06→21:44)
[2016-07-14] MEDS: SERTRALINE HCL 50 MG TAB PO SCH (09:06)
[2016-07-14] MEDS: RANITIDINE HCL 150 MG TAB PO SCH ×2 (09:06→21:45)
[2016-07-14] MEDS: DOCUSATE SODIUM/SENNA 50/8.6MG TAB PO PRN (09:06)
[2016-07-14] MEDS: FUROSEMIDE 20 MG TAB PO SCH (09:07)
[2016-07-14] MEDS: POTASSIUM CHLORIDE 20 MEQ TABCR PO SCH (09:07)
[2016-07-14] MEDS: CHOLECALCIFEROL 1000 INTER.UNIT TAB PO SCH (09:07)
[2016-07-14] MEDS: ROFLUMILAST 500 MCG TAB PO SCH (09:07)
[2016-07-14] MEDS: TIOTROPIUM BROMIDE-OLODATEROL 2.5-2.5MCG/ACT INH SCH (09:08)
[2016-07-14] MEDS: ONDANSETRON 4 MG TAB PO PRN (10:45)
[2016-07-14] MEDS: TRAMADOL HCL 50 MG TAB PO PRN ×2 (10:45→21:46)
--- NOTE | 2016-07-14 20:17 | Progress Note ---
Internal Med Progress Note Date of Service: July 14, 2016. Provider Documentation: SUBJECTIVE: cough has improved , no complain of SOB or ACOSTA GI symptom has improved markedly no nausea daughter in law present at bedside , concerned about pt still being weak and shaky wants to have PT eval prior to return home pt is agreeable Daughter in law also requesting to have Ortho eval done for left arm fracture - as pt still having limited range of motion OBJECTIVE: Vital Signs-as noted below Exam: General-no sign of distress Eyes-sclera non icteric Lungs-diminished, no rales or wheeze noted Heart-regular S1/S2 Abdomen-soft, non tender ,active bowel sound Extremities-no lower ext edema Neuro-AAO x3, no focal deficit Lab data as noted below. ASSESSMENT & PLAN: Acute bronchitis, chronic obstructive pulmonary disease exacerbation cough has resolved - chronic cough likely multifactorial:Excessive Dynamic Airway Collapse, GERD, ELÍAS - clinically improved to baseline -respiratory status remains stable , no hypoxia -on PO Prednisone -will D/c Levaquin after completion to course -appreciate input form Pulmonology pt is scheduled out pt follow up with pulmonology Patient is set up for a followup office visit on 08-15-16 at9:30 at the [place] office. GENERALIZED WEAKNESS /FATIGUE: symptom improved TSH wnl Urinary tract infection - leukocyte esterase positive. - urine cultures group b beta strep - on Levaquin Left Arm, Neck pain s/p Accidental Fall -had fall as she tripped -slipper being trapped in door edge - xrays: no acute fracture - MRI of the left shoulder - 1. Suspected healing nondisplaced fracture of the proximal humeral metaphysis 2. [place]-Sachs and Bankart lesions 3. Supraspinatus tendinopathy. cont pain control offered for home PT Ortho eval - per family request Obstructive sleep apnea CPAP Hyperlipidemia - Continue statin Depression and anxiety - Continue Zoloft and Ativan p.r.n. Gastroesophageal reflux disease. PPI and Zantac. DVT PROPHYLAXIS sub Q heparin DISPOSITION discharge home tomorrow Medicine follow up with Dr Clemons Vital Signs: Date Time Temp Pulse Resp B/P Pulse Ox O2 Delivery O2 Flow Rate FiO2 07/14/16 19:47 Room Air 2.0 Nasal Cannula 07/14/16 19:05 83 16 98 Nasal Cannula 2.0 07/14/16 17:54 37.0 86 18 116/72 97 Nasal Cannula 2.0 07/14/16 16:00 Room Air 2.0 Nasal Cannula 07/14/16 15:26 36.8 82 18 118/71 90 Nasal Cannula 2.0 Humidified Oxygen 07/14/16 14:25 81 16 97 Nasal Cannula 2.0 07/14/16 12:11 36.8 76 18 110/76 95 07/14/16 12:10 Room Air 2.0 Nasal Cannula 07/14/16 08:06 36.8 83 18 124/70 96 07/14/16 08:00 Room Air 2.0 Nasal Cannula 07/14/16 07:10 87 16 96 Nasal Cannula 2.0 07/14/16 04:45 36.8 74 18 102/66 98 Nasal Cannula 2.0 07/14/16 04:00 CPAP 07/14/16 02:08 92 14 98 Nasal Cannula 2.0 07/13/16 23:59 CPAP 07/13/16 23:56 36.4 68 18 101/64 96 BiPAP 07/13/16 23:21 83 95 2.0 Lab Results: Results Past 24 Hours Test 07/14/16 07:30 07/14/16 13:49 Range/Units Thyroid Stimulating Hormone (TSH) 0.815 0.300-4.500 uIu/ml Bedside Glucose 130 70-90 mg/dl
--- NOTE | 2016-07-14 20:23 | Discharge Instructions ---
Discharge Instructions Date of Service July 14, 2016. Admission Reason for Admission: Copd Exacerbation, Shortness Of Breath Discharge Discharge Diagnosis / Problem: COPD EXACERBATION Discharge Goals Goal(s): Decrease discomfort, Increase independence, Improve disease control, Diagnostic testing Activity Recommendations Activity Limitations: as noted below ( TOLERATED ) . Instructions / Follow-Up Instructions / Follow-Up HOSPITAL FOLLOW UP ON 07/18/2016 @ 11:[address] [place] Clemons MD General Internal Medicine [facility] PULMONOLOGY FOLLOW UP ON 08-15-16 at9:30 at the [place] office WITH ALAYNA BARRON PA-C CONTINUE TO TAKE PREDNISONE TAPER DOSE INSTRUCTED , PLEASE TAKE WITH [facility] ORTHOPEDICS FOLLOW UP WITH DR ARCHIBALD IN 4 WEEKS IF YOU CONTINUE TO HAVE PAIN ON LEFT SHOULDER , MAY NEED REPEAT STEROID INJECTION PLEASE FOLLOWUP WITH PULMONOLOGY OFFICE TO SET UP OUT PATIENT SLEEP STUDY TO ASSESS FOR OBSTRUCTIVE SLEEP APNEA AND NEED FOR CPAP AT HOME . INCIDENTAL FINDING OF 9 MM PULMONARY NODULE IN HIGH RISK PATIENT , NEED REPEAT NON CONTRAST CT CHEST IN JULY 2016 PER GUIDELINES Current Hospital Diet Patient's current hospital diet: Regular Diet Discharge Diet Recommended Diet: Regular Diet Pending Studies Studies pending at discharge: yes List of pending studies: REPEAT NON CONTRAST CT CHEST IN JULY 2016 PER GUIDELINES Medical Emergencies . Who to Call and When: Medical Emergencies: If at any time you feel your situation is an emergency, please call 911 immediately. . Non-Emergent Contact Non-Emergency issues call your: Primary Care Provider . . "Provider Documentation" section prepared by Valentine Ramirez. . Live Ammunition Inspector Recommendations Live Ammunition Inspector Recommendations: Patient is set up for a followup office visit on 08-15-16 at9:30 at the [place] office. VTE Core Measure Inpt VTE Proph given/why not?: Enoxaparin (Lovenox)SQ [place] Drug Monitoring Program Search Results: no issues identified
[2016-07-14] MEDS: ASCORBIC ACID 500 MG TAB PO SCH (21:43)
[2016-07-14] MEDS: ATORVASTATIN 10 MG TAB PO SCH (21:44)
[2016-07-14] MEDS: LIDODERM (LIDOCAINE) PATCH 5% TD SCH (21:46)
[2016-07-15] VITALS (7 sets, daily range): BP systolic 99–125; BP diastolic 64–73; PULSE 67–89; TEMP 36.7–36.8; O2SAT 95–100
[2016-07-15] MEDS: ALBUT/IPRATROP 3MG/0.5MG NEB 3 ML VIAL INH SCH ×3 (02:20→14:25)
[2016-07-15] MEDS: BUDESONIDE 0.5 MG/2 ML VIAL (PULMICORT) INH SCH (08:00)
[2016-07-15] MEDS: CHOLECALCIFEROL 1000 INTER.UNIT TAB PO SCH (08:18)
[2016-07-15] MEDS: FUROSEMIDE 20 MG TAB PO SCH (08:18)
[2016-07-15] MEDS: ROFLUMILAST 500 MCG TAB PO SCH (08:18)
[2016-07-15] MEDS: RANITIDINE HCL 150 MG TAB PO SCH (08:18)
[2016-07-15] MEDS: TIOTROPIUM BROMIDE-OLODATEROL 2.5-2.5MCG/ACT INH SCH (08:18)
[2016-07-15] MEDS: SERTRALINE HCL 50 MG TAB PO SCH (08:18)
[2016-07-15] MEDS: PANTOprazole SOD 40 MG TAB PO SCH (08:18)
[2016-07-15] MEDS: GABAPENTIN 300 MG CAP PO SCH ×2 (08:18→13:42)
[2016-07-15] MEDS: POTASSIUM CHLORIDE 20 MEQ TABCR PO SCH (08:18)
[2016-07-15] MEDS: TRAMADOL HCL 50 MG TAB PO PRN ×2 (08:19→14:10)
[2016-07-15] MEDS: LORAZEPAM 1 MG TAB PO PRN (08:19)
[2016-07-15] MEDS ORDERED: BUPIVACAINE 0.25% 30 ML VIAL INFIL ONE (08:45)
[2016-07-15] MEDS ORDERED: METHYLPREDNISOLONE ACETATE 80 MG/ML VIAL IA ONE (08:45)
--- NOTE | 2016-07-15 09:59 | ORTHOPEDIC CONSULTATION ---
DATE OF CONSULTATION: 07/15/2016 DATE OF CONSULTATION: 07/15/2016. CHIEF COMPLAINT: Left shoulder pain. HISTORY OF PRESENT ILLNESS: The patient is a 66-year-old female who was admitted for treatment of acute bronchitis and chronic COPD with exacerbation of the COPD. She states that she had sustained a fall about 6 weeks ago. She has been having pain in the left shoulder since that time. She was evaluated by her primary physician and felt that she likely just needed some physical therapy for the shoulder. She has been able to move the arm. She has been able to utilize the arm. She complains of anterolateral shoulder pain. She denies radicular pain. Denies numbness or tingling in the extremity and denies previous injury to this shoulder. She has previously had cortisone injections in the contralateral shoulder in the past which has helped with her pain. She has not had any treatments for her left shoulder as of yet. PAST MEDICAL HISTORY: COPD, hyperlipidemia, irritable bowel syndrome, GERD. ALLERGIES: No known drug allergies. PAST SURGICAL HISTORY: Biopsy vulva and perineal region, EGD with biopsy, lumbar spine fusion, neck fusion, appendectomy, tonsillectomy, cataract surgery, total hysterectomy. MEDICATIONS: Lasix, Zanaflex, Aleve, atorvastatin, Ativan, Zofran, tramadol, Zantac, Nystatin, gabapentin, Daliresp, Protonix, oxygen 2 liters continuously, Stiolto Respimat, Pulmicort, DuoNebs, albuterol, vitamin C, vitamin D. FAMILY HISTORY: Noncontributory. REVIEW OF SYSTEMS: As above. PHYSICAL EXAMINATION: VITAL SIGNS: Afebrile. Vital signs stable. GENERAL: Alert and oriented x3, in no acute distress. Mood and affect are normal. She is pleasant and cooperative with examination. HEAD, EYES, EARS, NOSE, AND THROAT: Atraumatic. CHEST: Nontender. CARDIOVASCULAR: Regular rate and rhythm. ABDOMEN: Soft. EXTREMITIES: Examination of the left upper extremity, she has some tenderness to palpation proximal humerus. No tenderness to palpation in the coracoid, no tenderness to palpation of the acromion or clavicle. Skin is normal. No swelling is seen. Range of motion forward flexion 180 degrees, abduction 0-180 degrees, external rotation 0-90 degrees, internal rotation 0-90 degrees. She has normal strength to supraspinatus, infraspinatus and subscapularis. She has mild pain with Neer and German impingement signs. Negative Speed's, negative [place]'s. She has some mild discomfort with rotator cuff strength testing. Examination of contralateral shoulder is unremarkable. X-rays left shoulder are normal. MRI of the left shoulder demonstrates a healing nondisplaced fracture at the proximal humerus metaphysis with some rotator cuff tendinosis and edema. ASSESSMENT: Six weeks status post nondisplaced proximal humerus fracture found on MRI. PLAN: The fracture is not visible on plain films. The incident happened about 6 weeks ago, so the fracture itself is likely healed from a structural standpoint. Residual findings will be found on MRI for quite some time after fracture of this nature. My feeling is a fair amount of her pain at this point is likely just some rotator cuff tendinitis. I gave her a subacromial injection of cortisone today. Once she is discharged, she can do some outpatient physical therapy, work on rotator cuff strengthening, range of motion. If she continues to have pain in the shoulder I would see her again in the office in about 4 weeks.
[2016-07-15] MEDS: HYDROCODONE/HOMATROPINE SYRUP 5MG/1.5MG 5ML UDP PO PRN (13:42)
[2016-07-15] MEDS ORDERED: PRED10TA PO (15:15)
[2016-07-15] MEDS ORDERED: HYCUDL5 PO (15:45)
--- NOTE | 2016-07-15 16:40 | Progress Note ---
Internal Med Progress Note Date of Service: July 15, 2016. Provider Documentation: SUBJECTIVE: no complain of cough or SOB evaluated by Orthopedics Dr Catherine today found to have left rotator cuff tendinitis had subscapular cortisone injection had PT eval earlier -found to have stable gait ,no balance issues stable to be discharged home today OBJECTIVE: Vital Signs-as noted below Exam: General-no sign of distress Eyes-sclera non icteric Lungs-clear to auscultate. no wheeze or rales Heart-regular S1/S2 Abdomen-soft, non tender ,active bowel sound Extremities-no lower ext edema Neuro-AAO x3, no focal deficit Lab data as noted below. ASSESSMENT & PLAN: Acute bronchitis, chronic obstructive pulmonary disease exacerbation -pt has hx of oxygen dependent COPD ( 2 L home 02 at night ) , presented with 1 week hx of progressive cough , dyspnea hx of smoking in past 60 pack year /quit on 06/2013 stable chronic rt middle lobe 9 mm nodule seen in previous scan pt had bronchoscopy in 05/2016 -showed excessive dynamic airway collapse of the trachea and bilateral bronchial tree pt has been treated with Steroid , Neb tx ,cough suppressant , empiric abx with Levaquin ordered for CPAP at night for underlying airway collapse appreciate input from pulmonology cough has resolved - D/c Levaquin after completion to course respiratory status improved to baseline -on PO Prednisone taper dose will be discharged on 50 mg PO daily X 3 days and gradual decrease by 10 mg X3 day till off - pt is scheduled out pt follow up with pulmonology office visit on 08-15-16 at9: 30 at the [facility]. pt will need to contact with Pulmonology office to set up out pt sleep study for home CPAP repeat non contrast CT chest for surveillance of 9 mm rt middle lobe pulmonary nodule GENERALIZED WEAKNESS /FATIGUE: symptom improved functional status back to baseline TSH wnl Urinary tract infection - leukocyte esterase positive. - urine cultures group b beta strep - on Levaquin treated for 5 days LEFT SHOULDER PAIN /HX OF FALL 6 WEEKS BACK s/p Accidental Fall approx 6 weeks back -had fall as she tripped -slipper being trapped in door edge - xrays: no acute fracture - MRI of the left shoulder - 1. Suspected healing nondisplaced fracture of the proximal humeral metaphysis 2. [place]-Sachs and Bankart lesions 3. Supraspinatus tendinopathy. cont pain control offered for home PT Ortho eval appreciated , healed left proximal humerus fracture, associated with Rotator cuff tendonitis given Cortisone injection By Dr Catherine today cont PT as put patient may need repeat Cortisone injection in 4-6 weeks if continues to have pain in left shoulder out pt follow up at [facility] in 4 weeks Obstructive sleep apnea ordered for CPAP will need out patient sleep study to arrange home CPAP Hyperlipidemia - Continue statin Depression and anxiety - Continue Zoloft and Ativan p.r.n. Gastroesophageal reflux disease. PPI and Zantac. DVT PROPHYLAXIS sub Q heparin DISPOSITION discharge home today Medicine follow up with Dr Clemons Vital Signs: Date Time Temp Pulse Resp B/P Pulse Ox O2 Delivery O2 Flow Rate FiO2 07/15/16 15:53 36.8 87 18 97 Room Air 07/15/16 14:57 36.8 87 18 99/64 97 Room Air 07/15/16 14:25 89 16 95 Room Air 07/15/16 08:30 67 16 98 BiPAP/CPAP 2.0 07/15/16 08:00 Nasal Cannula 2.0 07/15/16 07:54 36.7 80 18 125/73 100 2.0 07/15/16 02:21 80 96 2.0 07/15/16 02:20 80 16 96 BiPAP/CPAP 2.0 07/15/16 01:27 Room Air 2.0 Nasal Cannula 07/14/16 23:50 36.7 80 18 117/69 96 Nasal Cannula 2.0 07/14/16 23:20 67 96 2.0 07/14/16 19:47 Room Air 2.0 Nasal Cannula 07/14/16 19:05 83 16 98 Nasal Cannula 2.0 07/14/16 17:54 37.0 86 18 116/72 97 Nasal Cannula 2.0
--- NOTE | 2016-07-15 16:44 | Discharge Summary ---
Discharge Summary Date of Service July 15, 2016. Discharge Summary Admission Date: July 07, 2016 at 21:52 Discharge Date: July 14, 2016 Discharge Disposition: Home with services Principal Diagnosis: COPD EXACERBATION Secondary Diagnoses/Problems: Medical Problems: (1) Alcohol dependence in remission Status: Chronic (2) Benign neoplasm of colon Permanent Comment: 09/25/11 - 2 mm transverse colon tubular adenoma Status: Chronic (3) COPD, moderate Status: Chronic (4) Cystic Kidney Disease, Unspecified Status: Chronic (5) GERD (gastroesophageal reflux disease) Status: Chronic (6) History of aspiration pneumonia Status: Chronic (7) Hyperlipidemia Status: Chronic (8) Hypertension Nos Status: Chronic (9) IBS (irritable bowel syndrome) Status: Chronic (10) Obstructive sleep apnea Status: Chronic (11) PUD (peptic ulcer disease) Status: Chronic (12) Thoracic aortic ectasia Status: Chronic (13) 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 Surgical Problems: (1) H/O cervical spine surgery Status: Chronic (2) H/O colonoscopy Permanent Comment: 09/25/2011- adenomatous polyps Status: Chronic (3) H/O hysterectomy with oophorectomy Status: Chronic (4) History of cataract surgery Status: Chronic (5) S/P appendectomy Status: Chronic (6) S/p exploration of abdomen Permanent Comment: stent for ruptured right ureter Status: Chronic (7) S/p left sided discectomy, L3-4 Status: Chronic (8) S/P lumbar spinal fusion Permanent Comment: 06/2004 Status: Chronic (9) S/p lumbar spine revision Permanent Comment: 08/27/2014 removal old hardware, insert new - Dr. Mariee at L4/5 L5/s1 Status: Chronic (10) S/P tonsillectomy Status: Chronic Procedures: MRI LEFT SHOULDER NO CONTRAST CLINICAL HISTORY: Left shoulder pain status post trauma COMPARISON STUDY: Conventional radiographic study dated 07/08/2016 FINDINGS: Imaging was performed the paracoronal, sagittal, and axial planes. There is an old Hill-Sachs deformity. There is an old Bankart lesion. The bicipital tendon appears intact. There is no bicipital subluxation. Posterior to the changes are present within the glenohumeral joint. There is supraspinatus tendinopathy. There are no findings to indicate a full-thickness tear. There is a linear focus of decreased T1 and T2 signal within the proximal humeral metaphysis with surrounding edema. This may represent a healing nondisplaced fracture. IMPRESSION: 1. Suspected healing nondisplaced fracture of the proximal humeral metaphysis 2. [place]-Sachs and Bankart lesions 3. Supraspinatus tendinopathy. No evidence of full-thickness tear or tendinous retraction. CHEST ONE VIEW PORTABLE HISTORY: EVALUATE RESPIRATORY DISTRESS.DYSPNEA COMPARISON: Chest CT 05/24/2016. FINDINGS: No focal lung consolidations to suggest pneumonia. No evidence for pulmonary edema. No pleural effusions. No pneumothorax. The heart is stable in size. IMPRESSION: No significant change compared to the prior study. No acute process. Consultations: PULMONOLOGY DR SANT[facility]CR[facility]Z [facility] DR CATHERINE Pending Studies/Follow-Up: INCIDENTAL FINDING OF 9 MM PULMONARY NODULE IN HIGH RISK PATIENT , NEED REPEAT NON CONTRAST CT CHEST IN JULY 2016 PER GUIDELINES Medication Reconciliation New Medications: Prednisone Tab (Prednisone) 10 Mg Tab 50 MG PO UD, #100 TAB 50 MG DAILY x3 DAYS 40 MG DAILY x 3 DAYS 30 MG DAILY x3 DAYS 20 MG DAILY x3 DAYS 10 MG DAILY x3 DAYS THEN STOP Hydrocodone/Homatropine (Hydromet 5-1.5 mg/5Ml) 5 Ml/Cup Syrp 5 ML PO Q6H PRN for Cough, #100 ML Continued Medications: Albuterol Sulfate (Proair Respiclick) 108 Mcg/Act Aer 2 PUFFS INH Q4 PRN for SOB/Wheezing Ascorbic Acid (Vitamin C) 500 Mg Cap 500 MG PO HS Atorvastatin (Atorvastatin Calcium) 10 Mg Tab 10 MG PO HS Budesonide (Inhalation) (Pulmicort) 1 Mg/2 Ml Enedina 0.5 MG NEB BID Cholecalciferol (Vitamin D3) 1,000 Unit Tab 1 TAB PO QPM for 90 Days, TAB 3 Refills Cholecalciferol (Vitamin D3) 1,000 Inter.unit Tab 2000 UNITS PO QAM Furosemide (Furosemide) 20 Mg Tab 20 MG PO QAM Gabapentin (Neurontin) 300 Mg Cap 300 MG PO TID, CAP Ipratropium-Albuterol (Duoneb) 3 Ml Nebu 3 ML INH Q6 Lorazepam (Lorazepam) 1 Mg Tab 1 MG PO TID PRN for Anxiety Nystatin (Nystatin Suspension) 1 Ml Susp 5 ML PO QID PRN for Thrush SWISH AND SWALLOW Ondansetron Hcl (Zofran) 4 Mg Tab 4 MG PO Q8 PRN for Nausea, TAB Oxygen (Oxygen) Gas 2 LITERS NA CONTINOUS ALWAYS USES HS/DURING DAY PRN Pantoprazole (Protonix) 40 Mg Tab 40 MG PO BID, #30 TAB Potassium Ext Rel (Klor-Con) 20 Meq Tabcr 20 MEQ PO QAM, TAB Ranitidine HCl (Ranitidine HCl) 150 Mg Tab 150 MG PO BID Roflumilast (Daliresp) 500 Mcg Tab 1 TAB PO QAM for 30 Days, #30 TAB 5 Refills Sertraline (Zoloft) 50 Mg Tab 50 MG PO DAILY, TAB Tiotropium [place]-Olodaterol (Stiolto Respimat 2.5-2.5 Mcg/Act) 1 Aer Aer 2 PUFFS INH DAILY INHALE 2 PUFFS DAILY Tizanidine Hcl (Tizanidine Hcl) 4 Mg Cap 0.5 TAB PO Q6 Tramadol (Ultram) 50 Mg Tab 50 MG PO Q6H PRN for Pain, TAB Referrals At Discharge Follow up Referrals: Orthopedics Referral - Within 1 Week with Diogenes Catherine M.D. Physician Referral - 07/18/16 with North Clemons MD Broadcast Maintenance Technician Referral - 08/15/16 @ [facility] with Alayna Paez PA-C Admission Information HPI (per Admitting provider): DATE OF ADMISSION: 07/07/2016 CHIEF COMPLAINT: Shortness of breath and cough. HISTORY OF PRESENT ILLNESS: A 66-year-old female with past medical history significant for COPD severe, chronic respiratory failure, on home oxygen, obstructive sleep apnea, history of alcohol dependence, in remission, history of tobacco use, but quit about 2-3 years ago, hyperlipidemia, history of irritable bowel syndrome, osteoporosis and GERD, presents with cough going on for the last one week, but it is not getting better and she has also been getting short of breath for the last couple of days. Some dizziness yesterday, no blurred vision. No chest pain; was nauseous, but no vomiting. No abdominal pain. Normal bowel and bladder movements. Appetite is okay. Lives with her son. Ambulates okay. Currently, having cough with whitish sputum. ALLERGIES: No known drug allergies. PAST MEDICAL HISTORY: As mentioned above. PAST SURGICAL HISTORY: Biopsy of the vulvoperineal region, EGD with biopsy, lumbar spine fusion surgery, neck spine fusion, appendectomy, tonsillectomy, cataract surgery, total hysterectomy. MEDICATIONS: The patient is on Lasix 20 mg p.o. daily, Zanaflex 2 mg every 6 hours p.r.n., Aleve 220 mg p.o. b.i.d. p.r.n., atorvastatin 10 mg p.o. at bedtime, Zoloft 50 mg p.o. daily, Ativan 1 mg t.i.d. p.r.n., Zofran 4 mg p.o. 8 hours p.r.n., tramadol 50 mg p.o. q. 6 hours p.r.n., Zantac 150 mg p.o. b.i.d., nystatin suspension 5 mL p.o. daily, gabapentin 300 mg p.o. t.i.d., Daliresp 500 mcg p.o. daily, Protonix 40 mg p.o. b.i.d., oxygen 2 liters continuously, Stiolto Respimat 2.5- 2.5mcg/act 2 doses inhalation daily, Pulmicort nebulization b.i.d., DuoNebs 4 times daily, albuterol 2 puffs daily, vitamin C 500 mg daily, vitamin D 1000 units p.o. daily. FAMILY HISTORY: Significant for brother has heart disorder, mother had MO, maternal grandmother has a heart disorder. SOCIAL HISTORY: Lives with her son. A former smoker, quit in June 2013, smoked 1.5 packs a day for 52 years. No alcohol use. No drug use. Physical Exam (per Admitting): REVIEW OF SYMPTOMS: As per HPI. Rest of review of systems negative. PHYSICAL EXAMINATION: GENERAL: The patient is of moderate build, not in distress. VITAL SIGNS: Temperature 36.8, pulse 112, respiratory rate 20, blood pressure 140/82, oxygen 96% on 2 liters. HEENT: No pallor, no icterus. Pupils equal, round, and reactive to light. NECK: No JVD, no neck masses, no carotid bruits. CARDIOVASCULAR: S1, S2 heard. Tachycardia. No murmur, no gallop. RESPIRATORY SYSTEM: Clear to auscultation bilaterally. No wheezing, no crackles. ABDOMEN: Soft, bowel sounds present. Nontender. No distention. CENTRAL NERVOUS SYSTEM: Cranial nerves II-XII grossly intact. Nonfocal. EXTREMITIES: No edema, no erythema. Hospital Course Acute bronchitis, chronic obstructive pulmonary disease exacerbation -pt has hx of oxygen dependent COPD ( 2 L home 02 at night ) , presented with 1 week hx of progressive cough , dyspnea hx of smoking in past 60 pack year /quit on 06/2013 stable chronic rt middle lobe 9 mm nodule seen in previous scan pt had bronchoscopy in 05/2016 -showed excessive dynamic airway collapse of the trachea and bilateral bronchial tree pt has been treated with Steroid , Neb tx ,cough suppressant , empiric abx with Levaquin ordered for CPAP at night for underlying airway collapse appreciate input from pulmonology cough has resolved - D/c Levaquin after completion to course respiratory status improved to baseline -on PO Prednisone taper dose will be discharged on 50 mg PO daily X 3 days and gradual decrease by 10 mg X3 day till off - pt is scheduled out pt follow up with pulmonology office visit on 08-15-16 at9: 30 at the [facility]. pt will need to contact with Pulmonology office to set up out pt sleep study for home CPAP repeat non contrast CT chest for surveillance of 9 mm rt middle lobe pulmonary nodule GENERALIZED WEAKNESS /FATIGUE: symptom improved functional status back to baseline TSH wnl Urinary tract infection - leukocyte esterase positive. - urine cultures group b beta strep - on Levaquin treated for 5 days LEFT SHOULDER PAIN /HX OF FALL 6 WEEKS BACK s/p Accidental Fall approx 6 weeks back -had fall as she tripped -slipper being trapped in door edge - xrays: no acute fracture - MRI of the left shoulder - 1. Suspected healing nondisplaced fracture of the proximal humeral metaphysis 2. [place]-Sachs and Bankart lesions 3. Supraspinatus tendinopathy. cont pain control offered for home PT Ortho eval appreciated , healed left proximal humerus fracture, associated with Rotator cuff tendonitis given Cortisone injection By Dr Catherine today cont PT as put patient may need repeat Cortisone injection in 4-6 weeks if continues to have pain in left shoulder out pt follow up at [facility] in 4 weeks Obstructive sleep apnea ordered for CPAP will need out patient sleep study to arrange home CPAP Hyperlipidemia - Continue statin Depression and anxiety - Continue Zoloft and Ativan p.r.n. Gastroesophageal reflux disease. PPI and Zantac. DVT PROPHYLAXIS sub Q heparin DISPOSITION discharge home today Medicine follow up with Dr Clemons Total time spent on discharge = 45MINS This includes examination of the patient, discharge planning, medication reconciliation, and communication with other providers. Discharge Instructions Discharge Instructions Date of Service July 14, 2016. Admission Reason for Admission: Copd Exacerbation, Shortness Of Breath Discharge Discharge Diagnosis / Problem: COPD EXACERBATION Discharge Goals Goal(s): Decrease discomfort, Increase independence, Improve disease control, Diagnostic testing Activity Recommendations Activity Limitations: as noted below ( TOLERATED ) . Instructions / Follow-Up Instructions / Follow-Up HOSPITAL FOLLOW UP ON 07/18/2016 @ 11:[address] North Clemons MD General Internal Medicine [facility] PULMONOLOGY FOLLOW UP ON 08-15-16 at9:30 at the [place] office WITH ALAYNA PAEZ PA-C CONTINUE TO TAKE PREDNISONE TAPER DOSE INSTRUCTED , PLEASE TAKE WITH [facility] STOMACH ORTHOPEDICS FOLLOW UP WITH DR CATHERINE IN 4 WEEKS IF YOU CONTINUE TO HAVE PAIN ON LEFT SHOULDER , MAY NEED REPEAT STEROID INJECTION PLEASE FOLLOWUP WITH PULMONOLOGY OFFICE TO SET UP OUT PATIENT SLEEP STUDY TO ASSESS FOR OBSTRUCTIVE SLEEP APNEA AND NEED FOR CPAP AT HOME . INCIDENTAL FINDING OF 9 MM PULMONARY NODULE IN HIGH RISK PATIENT , NEED REPEAT NON CONTRAST CT CHEST IN JULY 2016 PER GUIDELINES Current Hospital Diet Patient's current hospital diet: Regular Diet Discharge Diet Recommended Diet: Regular Diet Pending Studies Studies pending at discharge: yes List of pending studies: REPEAT NON CONTRAST CT CHEST IN JULY 2016 PER GUIDELINES Medical Emergencies . Who to Call and When: Medical Emergencies: If at any time you feel your situation is an emergency, please call 911 immediately. . Non-Emergent Contact Non-Emergency issues call your: Primary Care Provider . . "Provider Documentation" section prepared by Valentine Ramirez. . Tornado Chaser Recommendations Tornado Chaser Recommendations: Patient is set up for a followup office visit on 08-15-16 at9:30 at the [place] office. VTE Core Measure Inpt VTE Proph given/why not?: Enoxaparin (Lovenox)SQ [place] Drug Monitoring Program Search Results: no issues identified Additional Copies To North Clemons MD Smith, Steve M., PA-C
--- NOTE | 2016-07-17 07:05 | OPERATIVE REPORT ---
DATE OF OPERATION: 07/15/2016 CHIEF COMPLAINT: Left shoulder pain. PREPROCEDURE DIAGNOSES: Shoulder pain and rotator cuff tendonitis, healed proximal humerus fracture. POSTPROCEDURE DIAGNOSIS: Same. PROCEDURE: Left shoulder subacromial injection. SURGEON: Dr. Catherine. INDICATIONS: The patient is a 66-year-old female who about 6 weeks ago sustained a fall. X-rays are negative. MRI demonstrated a healing fracture of the proximal aspect of the humerus. It also demonstrated rotator cuff tendinitis. My feeling is a lot of her symptoms are actually rotator cuff tendinitis related. She wished to proceed with a subacromial injection. PROCEDURE: The patient was identified, laterality was confirmed. I prepped the region with alcohol and injected the subacromial space with 80 mg of Depo-Medrol and 3 mL of Marcaine. She tolerated this well. She may use the shoulder as tolerated. I attest to the content of the Intraoperative Record and any orders documented therein. Any exceptio ns are noted below.
[2016-12-14] MEDS ORDERED: AMOX/K OR (12:18)
[2016-12-14] MEDS ORDERED: ZNF4 PO (12:41)
[2016-12-14] MEDS ORDERED: ALEN70TA4 PO (12:44)
[2016-12-14] MEDS ORDERED: GUAISYP4 PO (12:44)
[2016-12-14] MEDS ORDERED: SERT-234 PO (13:34)
[2016-12-14] MEDS ORDERED: CLOB-77 TOP (13:34)
[2016-12-22] MEDS ORDERED: PRED10TA PO (12:29)
== END 2016-07-15 16:00 | disposition home health service (06) | DRG 191 ==
LOC: ENRESERVDT → ENRESERVTM → EDBD 17:12 → C.EDC 17:13 → C.2T 21:52 → C.MS4W 07-14 17:19
PROVIDERS: ADMIT Internal Medicine; ATTEND Hospitalist
PROC: 3E0U3BZ Introduction of Anesthetic Agent into Joints, Percutaneous Approach (ICD-10-PCS; principal; 2016-07-15)
PROC: 3E0U33Z Introduction of Anti-inflammatory into Joints, Percutaneous Approach (ICD-10-PCS; principal; 2016-07-15)
DX: J44.1 Chronic obstructive pulmonary disease with (acute) exacerbation (principal); J96.10 Chronic respiratory failure, unspecified whether with hypoxia or hypercapnia; N39.0 Urinary tract infection, site not specified; S42.202A Unspecified fracture of upper end of left humerus, initial encounter for closed fracture; F10.21 Alcohol dependence, in remission; N28.9 Disorder of kidney and ureter, unspecified; K21.9 Gastro-esophageal reflux disease without esophagitis; E78.5 Hyperlipidemia, unspecified; I10 Essential (primary) hypertension; K58.9 Irritable bowel syndrome, unspecified; G47.33 Obstructive sleep apnea (adult) (pediatric); K27.9 Peptic ulcer, site unspecified, unspecified as acute or chronic, without hemorrhage or perforation; M81.0 Age-related osteoporosis without current pathological fracture; J44.0 Chronic obstructive pulmonary disease with (acute) lower respiratory infection; J20.9 Acute bronchitis, unspecified; I77.810 Thoracic aortic ectasia; R53.1 Weakness; W01.0XXA Fall on same level from slipping, tripping and stumbling without subsequent striking against object, initial encounter; X58.XXXA Exposure to other specified factors, initial encounter; B95.1 Streptococcus, group B, as the cause of diseases classified elsewhere; F32.9 Major depressive disorder, single episode, unspecified; F41.9 Anxiety disorder, unspecified; M54.2 Cervicalgia; J98.8 Other specified respiratory disorders; R91.1 Solitary pulmonary nodule; Z86.010 Personal history of colon polyps; Z99.81 Dependence on supplemental oxygen; Z79.1 Long term (current) use of non-steroidal anti-inflammatories (NSAID); Z79.899 Other long term (current) drug therapy; Z79.51 Long term (current) use of inhaled steroids; Z87.891 Personal history of nicotine dependence; Z87.01 Personal history of pneumonia (recurrent); Z83.6 Family history of other diseases of the respiratory system; Z98.1 Arthrodesis status

== ENCOUNTER → 2016-07-25 | Outpatient (CLI) | payer OTHER ==
[~2016-07-25] MED LIST changes: +ALBU18002 INH; -ALBU1AER9 INH; +ALEN70TA4 PO; +AMOX/K OR; +AZIT500T26 PO; +CHOL1000 PO; -CHOL100010 PO; -CHOL20007 PO; +CLOB-77 TOP; +DXY100 PO; +GUAISYP4 PO; +HYCUDL5 PO; +PRED10TA PO; +PRED20TA2 PO; +SENN8.6T7 PO; +SERT-234 PO; +SERT50TA PO; +VTMD1000 PO; -ZLF/50 PO; +ZNF4 PO
--- NOTE | 2016-07-30 20:35 | POLYSOMNOGRAPH REPORT ---
PRIMARY PHYSICIAN: Dr. North Clemons. CLINICAL DATA: The patient is a 66-year-old female who has a BMI of 24.48. She is referred by Dr. Abdi for an in-lab sleep study. She has a diagnosis of sleep apnea made 11 years ago, but she declines treatment at that time. She has a history of COPD and was recently hospitalized. 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 Her [place] score is 7 out of a possible 21. SLEEP ARCHITECTURE: The total sleep period was 399.0 minutes. Total sleep time 314.0 minutes. Sleep efficiency was moderately reduced to 70%. The sleep onset latency was prolonged to 50 minutes. The wake after sleep onset was prolonged to 85.0 minutes. REM latency was prolonged to 188.0 minutes. Sleep consisted of stage N1 8%, stage N2 44%, stage N3 23%, REM sleep 25%. AROUSAL DATA: The patient had a total of 50 arousals including 8 spontaneous arousals, 9 respiratory arousals, 21 PLM arousals, and 12 snoring arousals. The arousal index was 10. PLM DATA: The patient had a total of 119 periodic limb movements of sleep for an index of 22.7. There were 21 arousals, associated with PLMs for a PLM arousal index of 4.0. EKG: The underlying cardiac rhythm was normal sinus. The cardiac rates ranged from 65-95 beats per minute. RESPIRATORY DATA: The patient had a total of 28 respiratory events including 1 central apnea, 1 obstructive apnea, and 26 hypopneas. The hypopneas were scored by the 4% desaturation rule. The apnea hypopnea index was mildly elevated at 5.4 events per hour. This is compatible with mild sleep apnea. The longest apnea was 13.8 seconds. The mean duration of the hypopneas was 23.5 seconds. OXIMETRY DATA: The average saturation was 89%. The minimum saturation was 82%. She had 34 minutes with saturations less than 88%. NEON TUBE PUMPER COMMENTS: The patient slept in the right, left, and supine positions. No cardiac arrhythmia noted. PLMs noted. No bruxism noted. Snoring was noted and scored as a 1 on a scale of 1 through 5. IMPRESSION: 1. Obstructive sleep apnea -- mild. 2. Periodic limb movement disorder. COMMENTS: The patient has mild sleep apnea. In light of the fact she has chronic obstructive pulmonary disease, she would be classified as having the so-called overlap syndrome. There also was concern over tracheobronchial malacia. In light of the above coexisting comorbidities it is suggested that she be treated. RECOMMENDATIONS: 1. Consideration is given to treatment with nasal CPAP. This could be treated either with an in-lab CPAP titration or alternatively with auto CPAP. 2. It is suggested that the patient avoid sleeping in the supine position. Typically one has more sleep disordered breathing and snoring when supine. 3. If the patient would refuse treatment with nasal CPAP therapy, she may be a candidate for nocturnal oxygen therapy if she is not already receiving this. She would need to have an overnight pulse oximetry study to document the need for oxygen supplementation. 4. It is unlikely that the limb movements are significantly contributing to her sleep disruption. However, if she would have significant symptoms, she may be a candidate for pharmacologic therapy.
== END | disposition home or self-care (01) ==
LOC: C.NEUR 21:00
PROVIDERS: ATTEND Physician Assistant
DX: J39.8 Other specified diseases of upper respiratory tract (principal); G47.33 Obstructive sleep apnea (adult) (pediatric)

== ENCOUNTER 2016-08-06 13:47 | Emergency (ER) | payer OTHER ==
[~2016-08-06] VITALS: Ht 172.7 cm; Wt 72.0 kg
[~2016-08-06 13:47] MED LIST changes: -ALEN70TA4 PO; -AMOX/K OR; -AZIT500T26 PO; -CLOB-77 TOP; -DXY100 PO; -GUAISYP4 PO; -PRED20TA2 PO; -SENN8.6T7 PO; -SERT-234 PO; -ZNF4 PO
[2016-08-06 13:49] VITALS: TEMP 38.1; Ht 172.7 cm; Wt 72.0 kg
[2016-08-06] MEDS ORDERED: ALBUT/IPRATROP 3MG/0.5MG NEB 3 ML VIAL INH STA ×2 (14:01→14:57)
[2016-08-06] MEDS ORDERED: METHYLPREDNISOLONE 125 MG VIAL IV STA (14:01)
[2016-08-06 14:07] VITALS: O2SAT 97
--- NOTE | 2016-08-06 14:19 | DIAGNOSTIC IMAGING REPORT ---
CHEST ONE VIEW PORTABLE CLINICAL HISTORY: Respiratory distress. Shortness of breath. COMPARISON STUDY: 07/07/2016 FINDINGS: The cardiac and mediastinal contours are normal. There is no evidence of focal pulmonary consolidation. There is no evidence of failure. No pleural effusions are visualized.[ IMPRESSION: No active disease in the chest. Electronically signed by: Rosas Briggs M.D. 08/06/2016 2:18 PM Dictated Date/Time: 08/06/2016 2:17 PM
[2016-08-06 14:38] LABS: COMPLETE YES; EOS % 1.3 %; HEMATOCRIT 34.5 % (37-47); IG% 0.2 %; LYMPH % 12.7 %; LYMPH ABS # 1.08 K/uL (1.2-3.4); MEAN CELL VOLUME 79.9 fL (80-100); MEAN CORPUSCULAR HEMOGLOBIN 24.8 pg (25-34); MEAN PLATELET VOLUME 8.4 fL (7.4-10.4); MONO % 7.3 %; NEUT % 78.5 %; PLATELET COUNT 309 K/uL (130-400); RED BLOOD COUNT 4.32 M/uL (4.2-5.4); WHITE BLOOD COUNT 8.53 K/uL (4.8-10.8)
[2016-08-06] MEDS ORDERED: ACETAMINOPHEN 500 MG TAB PO STA (14:42)
[2016-08-06] MEDS ORDERED: SODIUM CHLORIDE 0.9% 1000ML 1,000 ML IV STA (14:57)
[2016-08-06 14:58] LABS: ALT/SGPT 18 U/L (12-78); AST/SGOT 15 U/L (15-37); BLOOD UREA NITROGEN 6 mg/dl (7-18); BUN/CREATININE RATIO 8.2 (10-20); CALCIUM 8.4 mg/dl (8.5-10.1); CARBON DIOXIDE 29 mmol/L (21-32); CHLORIDE 103 mmol/L (98-107); CREATININE 0.79 mg/dl (0.60-1.20); GLUCOSE 94 mg/dl (70-99); POTASSIUM 3.5 mmol/L (3.5-5.1); SODIUM 141 mmol/L (136-145)
[2016-08-06 15:02] LABS: ALB/GLOB RATIO 0.8 (0.9-2); ALKALINE PHOSPHATASE 87 U/L (45-117)
[2016-08-06 15:46] LABS: URINE APPEARANCE CLEAR (CLEAR); URINE BILIRUBIN NEG (NEG); URINE COLOR YELLOW; URINE NITRITE NEG (NEG); URINE SPECIFIC GRAVITY 1.014 (1.000-1.030); UROBILINOGEN NEG (NEG)
[2016-08-06 15:57] LABS: MANUAL MICROSCOPIC REQUIRED? NO; REVIEW REQ? NO
[2016-08-06] MEDS ORDERED: PRED20TA2 PO (16:26)
[2016-08-06] MEDS ORDERED: AZIT500T26 PO (16:26)
[2016-08-06] MEDS ORDERED: AZITHROMYCIN 250 MG TAB PO ONE (16:30)
[2016-08-06] MEDS ORDERED: FUROSEMIDE 40 MG TAB PO ONE (16:30)
[2016-08-06 17:12] VITALS: BP 111/66; PULSE 95; O2SAT 94
--- NOTE | 2016-08-06 17:25 | EMERGENCY ROOM VISIT NOTE ---
History Report prepared by Navid: Jo-Ann Marroquin Under the Supervision of: Thor TaylorO. First contact with patient: 13:53 Chief Complaint: COUGH Stated Complaint: COUGH, HURTS ALL OVER History of Present Illness The patient is a 66 year old female who presents to the Emergency Room with complaints of a worsening productive cough for the past week. She has been feeling generally achy all over. This morning she developed a fever. She did not take any medications for her fever. The patient has been using her breathing treatments at home for her symptoms. She gave herself a breathing treatment this morning but states that it did not help to alleviate any of her symptoms. She denies any chest pain. The patient had a similar episode a few months ago. She was admitted to the hospital and placed on antibiotics. Source of History: patient Onset: 1 week ago Position: chest (cough) Quality: other (productive) Timing: worsening Associated Symptoms: + fevers, No chest pain Note: Pt notes generalized body aches. Review of Systems See HPI for pertinent positives & negatives. A total of 10 systems reviewed and were otherwise negative. Past Medical & Surgical Medical Problems: (1) Alcohol dependence in remission (2) Benign neoplasm of colon (3) COPD, moderate (4) Cystic Kidney Disease, Unspecified (5) Dysfunctional gallbladder (6) GERD (gastroesophageal reflux disease) (7) History of aspiration pneumonia (8) Hyperlipidemia (9) Hypertension Nos (10) IBS (irritable bowel syndrome) (11) Obstructive sleep apnea (12) PUD (peptic ulcer disease) (13) Rotator cuff insufficiency of left shoulder (14) Thoracic aortic ectasia (15) CALE II (vulvar intraepithelial neoplasia II) Surgical Problems: (1) H/O cervical spine surgery (2) H/O colonoscopy (3) H/O hysterectomy with oophorectomy (4) History of cataract surgery (5) S/P appendectomy (6) S/p exploration of abdomen (7) S/p left sided discectomy, L3-4 (8) S/P lumbar spinal fusion (9) S/p lumbar spine revision (10) S/P tonsillectomy Family History Blood clots MOTHER Cardiac disorder BROTHER (congenital heart disease) FH: CHF (congestive heart failure) MOTHER FH: heart disease MOTHER GRANDMOTHER FH: lung disease Hypertension Social History Smoking Status: Former Smoker Marital Status: single Housing Status: lives alone Occupation Status: retired Current/Historical Medications Scheduled Ascorbic Acid (Vitamin C), 500 MG PO HS Atorvastatin (Atorvastatin Calcium), 10 MG PO HS Azithromycin (Zithromax), 500 MG PO DAILY Budesonide (Inhalation) (Pulmicort), 0.5 MG NEB BID Cholecalciferol (Vitamin D3), 1 TAB PO QPM Cholecalciferol (Vitamin D3), 2,000 UNITS PO QAM Furosemide (Furosemide), 20 MG PO QAM Gabapentin (Neurontin), 300 MG PO TID Home O2 Therapy (Oxygen), 2 LITERS NA CONTINOUS Ipratropium-Albuterol (Duoneb), 3 ML INH Q6 Pantoprazole (Protonix), 40 MG PO BID Potassium Ext Rel (Klor-Con), 20 MEQ PO QAM Prednisone (Prednisone Tab), 40 MG PO DAILY Ranitidine HCl (Ranitidine HCl), 150 MG PO BID Roflumilast (Daliresp), 1 TAB PO QAM Sertraline (Zoloft), 50 MG PO DAILY Tiotropium Bryson-Olodaterol (Stiolto Respimat 2.5-2.5 Mcg/Act), 2 PUFFS INH DAILY Tizanidine Hcl (Tizanidine Hcl), 0.5 TAB PO Q6 Scheduled PRN Albuterol Sulfate (Proair Respiclick), 2 PUFFS INH Q4 PRN for SOB/Wheezing Lorazepam (Lorazepam), 1 MG PO TID PRN for Anxiety Nystatin (Nystatin Suspension), 5 ML PO QID PRN for Thrush Ondansetron Hcl (Zofran), 4 MG PO Q8 PRN for Nausea Tramadol (Ultram), 50 MG PO Q6H PRN for Pain Allergies Coded Allergies: No Known Allergies (Unverified , 06/23/16) PER PATIENT Physical Exam Vital Signs Date Time Temp Pulse Resp B/P (MAP) Pulse Ox O2 Delivery O2 Flow Rate FiO2 08/06/16 17:12 95 20 111/66 94 Nasal Cannula 2.0 08/06/16 16:23 100 22 117/60 95 Nasal Cannula 2.0 08/06/16 15:13 105 20 123/79 94 Nebulizer 08/06/16 14:22 108 08/06/16 14:07 97 Nasal Cannula 2.0 08/06/16 14:07 97 Nasal Cannula 2.0 08/06/16 13:58 97 Nasal Cannula 2.0 08/06/16 13:49 38.1 127 18 120/70 94 Nasal Cannula 2.0 Physical Exam GENERAL: Patient is awake, alert, and in no acute distress. Patient is resting comfortably and showing no signs of anxiety EYES: The conjunctivae are clear. The pupils are round and reactive. EARS, NOSE, MOUTH AND THROAT: The nose is without any evidence of any deformity. Mucous membranes are moist tongue is midline NECK: The neck is nontender and supple. RESPIRATORY: Breath sounds are diminished throughout, wheezing in the right lung field. Mild tachypnea with conversational dyspnea. CARDIOVASCULAR: Tachycardic rate and regular rhythm noted there no murmurs rubs or gallops normal S1 normal S2 GASTROINTESTINAL: The abdomen is soft. Bowel sounds are present in all quadrants. Abdomen is nontender MUSCULOSKELETAL/EXTREMITIES: There is no evidence of gross deformity full range of motion is noted in the hips and shoulders SKIN: Trace pedal edema bilaterally. There is no obvious evidence of any rash. There are no petechiae, pallor or cyanosis noted. NEUROLOGIC: Patient is awake alert and oriented x3 Medical Decision & Procedures ER Provider Diagnostic Interpretation: Radiology results as stated below per my review and radiologist interpretation: CHEST ONE VIEW PORTABLE CLINICAL HISTORY: Respiratory distress. Shortness of breath. COMPARISON STUDY: 07/07/2016 FINDINGS: The cardiac and mediastinal contours are normal. There is no evidence of focal pulmonary consolidation. There is no evidence of failure. No pleural effusions are visualized.[ IMPRESSION: No active disease in the chest. Electronically signed by: Rosas Briggs M.D. 08/06/2016 2:18 PM Dictated Date/Time: 08/06/2016 2:17 PM Laboratory Results 08/06/16 14:30 Red Blood Count 4.32, Mean Corpuscular Volume 79.9, Mean Corpuscular Hemoglobin 24.8, Mean Corpuscular Hemoglobin Concent 31.0, Mean Platelet Volume 8.4, Neutrophils (%) (Auto) 78.5, Lymphocytes (%) (Auto) 12.7, Monocytes (%) (Auto) 7.3, Eosinophils (%) (Auto) 1.3, Basophils (%) (Auto) 0.0, Neutrophils # (Auto) 6.70, Lymphocytes # (Auto) 1.08, Monocytes # (Auto) 0.62, Eosinophils # (Auto) 0.11, Basophils # (Auto) 0.00 08/06/16 14:30 Test 08/06/16 14:30 08/06/16 15:15 White Blood Count 8.53 K/uL (4.8-10.8) Red Blood Count 4.32 M/uL (4.2-5.4) Hemoglobin 10.7 g/dL (12.0-16.0) Hematocrit 34.5 % (37-47) Mean Corpuscular Volume 79.9 fL (80-100) Mean Corpuscular Hemoglobin 24.8 pg (25-34) Mean Corpuscular Hemoglobin Concent 31.0 g/dl (32-36) Platelet Count 309 K/uL (130-400) Mean Platelet Volume 8.4 fL (7.4-10.4) Neutrophils (%) (Auto) 78.5 % Lymphocytes (%) (Auto) 12.7 % Monocytes (%) (Auto) 7.3 % Eosinophils (%) (Auto) 1.3 % Basophils (%) (Auto) 0.0 % Neutrophils # (Auto) 6.70 K/uL (1.4-6.5) Lymphocytes # (Auto) 1.08 K/uL (1.2-3.4) Monocytes # (Auto) 0.62 K/uL (0.11-0.59) Eosinophils # (Auto) 0.11 K/uL (0-0.5) Basophils # (Auto) 0.00 K/uL (0-0.2) RDW Standard Deviation 46.8 fL (36.4-46.3) RDW Coefficient of Variation 15.9 % (11.5-14.5) Immature Granulocyte % (Auto) 0.2 % Immature Granulocyte # (Auto) 0.02 K/uL (0.00-0.02) Anion Gap 9.0 mmol/L (3-11) Est Creatinine Clear Calc Drug Dose 69.7 ml/min Estimated GFR () 89.8 Estimated GFR (Non- 77.5 BUN/Creatinine Ratio 8.2 (10-20) Calcium Level 8.4 mg/dl (8.5-10.1) Total Bilirubin 0.7 mg/dl (0.2-1) Aspartate Amino Transf (AST/SGOT) 15 U/L (15-37) Alanine Aminotransferase (ALT/SGPT) 18 U/L (12-78) Alkaline Phosphatase 87 U/L (45-117) Troponin I < 0.015 ng/ml (0-0.045) Total Protein 7.1 gm/dl (6.4-8.2) Albumin 3.2 gm/dl (3.4-5.0) Globulin 3.9 gm/dl (2.5-4.0) Albumin/Globulin Ratio 0.8 (0.9-2) Urine Color YELLOW Urine Appearance CLEAR (CLEAR) Urine pH 7.0 (4.5-7.5) Urine Specific [place] 1.014 (1.000-1.030) Urine Protein NEG (NEG) Urine Glucose (UA) NEG (NEG) Urine Ketones NEG (NEG) Urine Occult Blood 1+ (NEG) Urine Nitrite NEG (NEG) Urine Bilirubin NEG (NEG) Urine Urobilinogen NEG (NEG) Urine Leukocyte Esterase NEG (NEG) Urine WBC (Auto) 0 /hpf (0-5) Urine RBC (Auto) 5-10 /hpf (0-4) Urine Hyaline Casts (Auto) 1-5 /lpf (0-5) Urine Epithelial Cells (Auto) 10-20 /lpf (0-5) Urine Bacteria (Auto) NEG (NEG) Laboratory results per my review. Medications Administered Medications (Trade) Dose Ordered Sig/Edis Route Start Time Stop Time Status Last Admin Dose Admin Methylprednisolone Sodium Succinate (Solu-Medrol IV) 125 mg NOW STAT IV 08/06/16 14:01 08/06/16 14:02 DC 08/06/16 14:26 125 MG Albuterol/ Ipratropium (Duoneb) 3 ml NOW STAT INH 08/06/16 14:01 08/06/16 14:02 DC 08/06/16 14:26 3 ML Acetaminophen (Tylenol Tab) 1,000 mg NOW STAT PO 08/06/16 14:42 08/06/16 14:43 DC 08/06/16 15:07 1,000 MG Sodium Chloride 1,000 ml @ 999 mls/hr Q1H1M STAT IV 08/06/16 14:57 08/06/16 15:57 DC 08/06/16 15:07 999 MLS/HR Albuterol/ Ipratropium (Duoneb) 3 ml NOW STAT INH 08/06/16 14:57 08/06/16 14:58 DC 08/06/16 15:06 3 ML Furosemide (Lasix Tab) 20 mg NOW ONCE PO 08/06/16 16:30 08/06/16 16:31 DC 08/06/16 16:42 20 MG Azithromycin (Zithromax Tab) 500 mg NOW ONCE PO 08/06/16 16:30 08/06/16 16:31 DC 08/06/16 16:42 500 MG ECG Indication: SOB/dyspnea Rate (beats per minute): 103 Rhythm: sinus tachycardia Findings: no acute ischemic change, no ectopy Comparison ECG Date: July 07, 2016 Change: Increased rate, otherwise no significant change. ED Course 1353: The patient was evaluated in room A4B. A complete history and physical examination were performed. 1401: DuoNeb 3 ml INH, Solu-Medrol 125 mg IV 1442: Tylenol 1000 mg PO 1455: I reevaluated the patient. She does not feel any better and is going to get another breathing treatment and some fluids. 1457: DuoNeb 3 ml INH, NSS 1000 ml @ 999 mls/hr IV 1616: I spoke with Dr. Abdi, the patient's skein mercerizing machine operator. We discussed her case and he recommended giving the patient an extra dose of Lasix and he will see her in the office tomorrow for follow-up. 1624: I reassessed the patient at this time. She is feeling better and resting comfortably. I discussed the results and treatment plan with the patient. I answered all pertaining questions that she had. She expressed understanding and verbalized agreement The patient will be discharged home. 1630: Azithromycin 500 mg PO, Lasix tab 20 mg PO Medical Decision Differential diagnosis: Etiologies such as infections, reactive airway disease, pneumonia, pneumothorax , COPD, CHF, cardiac ischemia, pulmonary embolism, musculoskeletal, gastrointestinal, as well as others were entertained. Medication Reconciliation: I attest that I have personally reviewed the patient' s current medications list. Blood pressure screening: Patient was found to have normal blood pressure on screening and does not require follow-up. The patient is a 66-year-old female who has a history of COPD who presented to the emergency department for an evaluation of cough and fever. The patient had a productive cough as well as shortness of breath. She has been using her bronchodilator therapy without improvement. The patient was treated with multiple bronchodilator treatments in the emergency department. She was tachycardic initially but treated with IV fluids. She also given steroids and started on antibiotic. I discussed the patient's laboratory and radiographic studies with her. I also discussed her case with her primary pulmonary physician. He does feel that part of her problem is sometimes due to congestive heart failure changes. He recommended a dose of Lasix in the emergency department and have her continue taking her Lasix. She was encouraged to rest and avoid any strenuous activity. She was also encouraged to follow-up with her primary pulmonary physician tomorrow. She was also encouraged to return to the emergency department immediately if symptoms change worsen or the need arises. Consults Time Called: 1608 Consulting Physician: Dr. Abdi Returned Call: [address] Abdi, the patient's skein mercerizing machine operator. We discussed her case and he recommended giving the patient an extra dose of Lasix and he will see her in the office tomorrow for follow-up. Impression Primary Impression: COPD exacerbation Additional Impressions: Fever Acute bronchitis Scribe Attestation The scribe's documentation has been prepared under my direction and personally reviewed by me in its entirety. I confirm that the note above accurately reflects all work, treatment, procedures, and medical decision making performed by me. Departure Information Dispostion Home / Self-Care Prescriptions Prednisone (Prednisone Tab) 20 Mg Tab 40 MG PO DAILY, #10 TAB Prov: Jose Carlos oY, DO 08/06/16 Azithromycin (Zithromax) 500 Mg Tab 500 MG PO DAILY, #4 TAB Prov: Jose Carlos Yo, DO 08/06/16 Referrals No Doctor, Assigned (PCP) [place] MD Waddington, Thomas W., MD Forms HOME CARE DOCUMENTATION FORM, IMPORTANT VISIT INFORMATION Patient Instructions COPD, My [facility] Additional Instructions Continue all medications as prescribed. Start taking the prednisone as well as the Zithromax tomorrow because he were given a dose today in the emergency department. Follow-up with your skein mercerizing machine operator tomorrow versus possible. Return to the emergency department immediately if symptoms change worsen or the need arises. Problem Qualifiers Additional Impressions: Fever Fever type: unspecified Qualified Codes: R50.9 - Fever, unspecified Acute bronchitis Bronchitis organism: unspecified organism Qualified Codes: J20.9 - Acute bronchitis, unspecified
[2016-11-19] MEDS ORDERED: DXY100 PO (14:00)
[2016-11-19] MEDS ORDERED: HYCUDL5 PO (14:00)
[2016-11-19] MEDS ORDERED: PRED10TA PO (14:00)
[2016-11-19] MEDS ORDERED: SENN8.6T7 PO (14:00)
[2016-12-14] MEDS ORDERED: AMOX/K OR (12:18)
[2016-12-14] MEDS ORDERED: ZNF4 PO (12:41)
[2016-12-14] MEDS ORDERED: ALEN70TA4 PO (12:44)
[2016-12-14] MEDS ORDERED: GUAISYP4 PO (12:44)
[2016-12-14] MEDS ORDERED: SERT-234 PO (13:34)
[2016-12-14] MEDS ORDERED: CLOB-77 TOP (13:34)
[2016-12-22] MEDS ORDERED: PRED10TA PO (12:29)
== END 2016-08-06 17:14 | disposition home or self-care (01) ==
LOC: C.EDB 13:49 → C.EDA 17:14
DX: J44.1 Chronic obstructive pulmonary disease with (acute) exacerbation (principal); R50.9 Fever, unspecified; J20.9 Acute bronchitis, unspecified; D12.6 Benign neoplasm of colon, unspecified; Q61.9 Cystic kidney disease, unspecified; K21.9 Gastro-esophageal reflux disease without esophagitis; E78.5 Hyperlipidemia, unspecified; I10 Essential (primary) hypertension; K58.9 Irritable bowel syndrome, unspecified; G47.33 Obstructive sleep apnea (adult) (pediatric); K27.9 Peptic ulcer, site unspecified, unspecified as acute or chronic, without hemorrhage or perforation; N90.1 Moderate vulvar dysplasia; Z82.49 Family history of ischemic heart disease and other diseases of the circulatory system; Z87.891 Personal history of nicotine dependence

== ENCOUNTER → 2016-08-16 | Outpatient (CLI) | payer OTHER ==
[~2016-08-16] MED LIST changes: +ALEN70TA4 PO; +AMOX/K OR; +AZIT500T26 PO; +CLOB-77 TOP; +DXY100 PO; +GUAISYP4 PO; +PRED20TA2 PO; +SENN8.6T7 PO; +SERT-234 PO; +ZNF4 PO
--- NOTE | 2016-08-16 07:52 | DIAGNOSTIC IMAGING REPORT ---
CHEST CT WITHOUT CONTRAST CT DOSE: 213.14 mGy.cm HISTORY: Emphysematous change J44.9 COPD (chronic obstructive pulmonary disease) with chronic TECHNIQUE: Multiaxial CT images of the chest were performed without contrast. COMPARISON: 05/24/2016 FINDINGS: Unchanged exam. Pulmonary micronodularity unaltered. No evidence for new interval or progressive process. No focal infiltrate. No significant hilar or mediastinal adenopathy. Moderate tortuosity and ectasia thoracic aorta unchanged. IMPRESSION: Stable exam. No change in the low suspicion micronodular change throughout both hemithoraces. Follow-up routine Fleischner criteria. Please refer to below summary of Fleischner criteria recommendations for follow-up of incidental CT nodules (Tee Morris, Guidelines for management of small pulmonary nodules detected on CT scans: A statement from the Fleischner Society, Radiology 237: [phone].) SOLID NODULES Solitary nodule size: <6 mm * low risk patients: no follow-up needed * high risk patients: optional CT at 12 months Solitary nodule size: 6-8 mm * low risk patients: follow-up at 6-12 months, then consider further follow-up at 18-24 months * high risk patients: initial follow-up CT at 6-12 months and then at 18-24 months if no change Solitary nodule size: >8 mm * either low or high risk patients - consider follow-up CT at 3 months, and/or CT-PET, and/or biopsy Multiple nodules size: <6 mm * low risk patients: no routine follow-up * high risk patients: optional CT at 12 months Multiple nodules size: 6-8 mm * low risk patients: follow-up at 3-6 months, then consider further follow-up at 18-24 months * high risk patients: follow-up at 3-6 months, then at 18-24 months if no change Multiple nodules size: >8 mm * low risk patients: follow-up at 3-6 months, then consider further follow-up at 18-24 months * high risk patients: follow-up at 3-6 months, then at 18-24 months if no change Note: newly detected indeterminate nodule in persons 35 years of age or older. * Low risk patients: minimal or absent history of smoking and/or other known risk factors * high risk patients: history of smoking or of other known risk factors (e.g. first degree relative with lung cancer, or exposure to asbestos, radon, uranium) * if a nodule up to 8 mm is partly solid or is ground glass further follow-up is required after 24 months to exclude possible slow growing adenocarcinoma (MARY) SUBSOIL NODULES Solitary pure ground-glass nodule * nodule size <6 mm - no CT follow-up required * nodule size >=6 mm - follow-up CT at 6-12 months, then every 2 years until 5 years Solitary part-solid nodule * nodule size <6 mm - no CT follow-up required * nodule size >=6 mm - follow-up CT at 3-6 months. If unchanged, and solid component remains <6 mm, then annual follow-up for 5 years Multiple subsolid nodules * nodule size <6 mm - follow-up CT at 3-6 months, consider further follow-up at 2 and 4 years if stable * nodule size >=6 mm - follow-up CT at 3-6 months, subsequent management based on the most suspicious nodule(s) Electronically signed by: Nagi Hunt M.D. 08/16/2016 7:50 AM Dictated Date/Time: 08/16/2016 7:46 AM
== END | disposition home or self-care (01) ==
LOC: C.CTS 07:33
PROVIDERS: ATTEND Physician Assistant
DX: J44.9 Chronic obstructive pulmonary disease, unspecified (principal); R05 Cough; R91.8 Other nonspecific abnormal finding of lung field

== ENCOUNTER → 2016-08-23 | Day surgery (SDC) | payer OTHER ==
[2016-08-23] VITALS (14 sets, daily range): BP systolic 94–131; BP diastolic 62–83; PULSE 71–90; TEMP 36.8–37.1; O2SAT 95–100; Ht 172.7 cm; Wt 73.0 kg
[~2016-08-23] VITALS: Ht 172.7 cm; Wt 73.0 kg
[~2016-08-23] MED LIST changes: +FENTANYL CITRATE INJ 50 MCG/1 ML 2 ML VIAL IV ONE; +FENTANYL CITRATE INJ 50 MCG/1 ML 2 ML VIAL IV SCH; +LIDOCAINE 4% INH SOLN 4 ML BTL ONE; +LIDOCAINE HCL 2% LOCAL 50ML VIAL INFIL ONE; +MIDAZOLAM HCL 5 MG/ML 1 ML VIAL IV ONE; +MIDAZOLAM HCL 5 MG/ML 1 ML VIAL IV SCH; +NURSING VERBAL MED ORDER ONE
--- NOTE | 2016-08-23 09:34 | Procedure Note ---
Pre-Mod Sedation Assessment General Date of Moderate Sedation: Aug 23, 2016. Vital Signs: Vital Signs Past 12 Hours Date Time Temp Pulse Resp B/P (MAP) Pulse Ox O2 Delivery O2 Flow Rate FiO2 08/23/16 09:17 36.8 89 20 113/81 (92) 99 Room Air Review Cardiovascular: regular rate, rhythm, no edema, no gallop, no JVD Abdomen: normal bowel sounds, non tender, soft, no organomegaly, no pulsatile mass, normal rectal exam Lungs: chest non-tender, lungs clear, normal breath sounds Airway Class: II Pre-Sedation Airway Assessment Oral Cavity: Dentures Able to Visualize Vocal Cords: Yes Short Thick Neck: Yes Hx of Sleep Apnea: Yes Smoking Status: Former Smoker Mallampati Classification: Class II ASA Classification: Class II Procedure Planning Contraindications-for Mod Sed: None Yes Notes The planned sedation has been discussed with the patient and consent obtained. I have identified the patient, determined the appropriateness of sedation and have assessed the patient immediately prior to the procedure. All medicine(s) and interventions are by my order.
--- NOTE | 2016-08-23 10:38 | Procedure Note ---
Post-Moderate Sedation Plan General Date of Moderate Sedation Aug 23, 2016. Vital Signs: Vital Signs Past 12 Hours Date Time Temp Pulse Resp B/P (MAP) Pulse Ox O2 Delivery O2 Flow Rate FiO2 08/23/16 10:35 80 18 125/82 97 Mask 8.0 08/23/16 10:30 81 18 127/79 95 Mask 8.0 08/23/16 10:25 81 18 131/77 98 Mask 8.0 08/23/16 10:20 82 18 121/73 100 Mask 8.0 08/23/16 10:15 90 20 124/83 100 Mask 8.0 08/23/16 10:10 90 20 130/75 100 Mask 8.0 08/23/16 10:01 78 18 122/73 100 Mask 8.0 08/23/16 09:49 36.8 89 20 113/81 99 Room Air 08/23/16 09:17 36.8 89 20 113/81 (92) 99 Room Air Review - Discharge Plan Post Moderate Sedation Plan: On clinical assessment, the patient appears to have tolerated the conscious sedation without complications. Patient is recovering as anticipated. Patient will continue to be monitored by nursing and may be discharged when conscious sedation discharge criteria are met.
--- NOTE | 2016-08-23 10:40 | Bronchoscopy Procedure Note ---
Bronchoscopy Procedure Note Procedure: Bronchoscopy, conscious sedation, BAL (Lingula) Consent: Obtained through the patient placed into the chart Pre-procedural diagnosis: chronic cough Post-procedural diagnosis: chronic cough Start time: 1014 End time: 1030 Total time: 16 minutes Analgesia: 2% liquid lidocaine: Via nebulizer 4% gel lidocaine: Via right naris 2% liquid lidocaine: Via bronchoscopy Sedation: Versed IV: 4 mg Fentanyl IV: 100 g Procedure: The SeatNinja video bronchoscope was used for this procedure and passed down through the right naris Right naris/posterior naris/posterior oropharynx: Anatomically within normal limits Glottis: Anatomically within normal limits Vocal cords: Proper abduction and abduction, anatomically within normal limits Subglottis/trachea/Cielo: Anatomically within normal limits Right bronchial tree: Right mainstem bronchus: Anatomically within normal limits Right upper lobe: Anatomically within normal limits Bronchus intermedius: Anatomically within normal limits Right middle lobe: Anatomically within normal limits Right lower lobe: Anatomically within normal limits Findings: diffuse subsegmental airway collapse Left bronchial tree: Left mainstem bronchus: Anatomically within normal limits Left upper lobe: at the secondary cielo a small airway crypt otherwise anatomically within normal limits Lingula: Anatomically within normal limits Left lower lobe: Anatomically within normal limits Findings: diffuse subsegmental airway collapse Bronchial alveolar lavage: BAL (Lingula) EBL: none Complications: None Follow-up: In the [facility]
--- NOTE | 2016-08-23 10:44 | Discharge Instructions ---
Discharge Instructions Date of Service Aug 23, 2016. Admission Reason for Admission: Chronic Bronchitis, Sob, Copd Discharge Discharge Diagnosis / Problem: Chronic Cough Discharge Goals Goal(s): Diagnostic testing Activity Recommendations Activity Limitations: resume your previous activity . Instructions / Follow-Up Instructions / Follow-Up Follow-Up with the [place] provider Yessica Sanchez or Servando Abdi Current Hospital Diet Patient's current hospital diet: Discharge Diet Recommended Diet: Regular Diet Procedures Procedures Performed: Bornhcoscopy with conscious sedation and bronchial lavage/washing of the Lingula (left upper lobe) Pending Studies Studies pending at discharge: no Medical Emergencies . Who to Call and When: Medical Emergencies: If at any time you feel your situation is an emergency, please call 911 immediately. . Non-Emergent Contact Non-Emergency issues call your: Park Maintenance Technician Call Non-Emergent contact if: temperature is above 101.5 . . "Provider Documentation" section prepared by Servando Abdi. . VTE Core Measure Inpt VTE Proph given/why not?: Treatment not indicated
== END | disposition home or self-care (01) ==
LOC: C.ACU 08:12
PROVIDERS: ATTEND Internal Medicine Critical Care Medicine
DX: R05 Cough (principal); J44.9 Chronic obstructive pulmonary disease, unspecified; G47.33 Obstructive sleep apnea (adult) (pediatric); J39.8 Other specified diseases of upper respiratory tract; R91.1 Solitary pulmonary nodule; Q61.9 Cystic kidney disease, unspecified; Z99.81 Dependence on supplemental oxygen; K21.9 Gastro-esophageal reflux disease without esophagitis; I12.9 Hypertensive chronic kidney disease with stage 1 through stage 4 chronic kidney disease, or unspecified chronic kidney disease; N18.9 Chronic kidney disease, unspecified; E78.5 Hyperlipidemia, unspecified; I77.810 Thoracic aortic ectasia; K58.9 Irritable bowel syndrome, unspecified; Z87.891 Personal history of nicotine dependence; Z87.01 Personal history of pneumonia (recurrent); Z87.11 Personal history of peptic ulcer disease; Z79.899 Other long term (current) drug therapy

== ENCOUNTER 2016-11-12 21:17 | Inpatient (IN) | payer OTHER ==
[~2016-11-12] VITALS: Ht 172.7 cm; Wt 70.7 kg
[~2016-11-12 21:17] MED LIST changes: -ALEN70TA4 PO; -AMOX/K OR; -AZIT500T26 PO; -CLOB-77 TOP; -DXY100 PO; -FENTANYL CITRATE INJ 50 MCG/1 ML 2 ML VIAL IV ONE; -FENTANYL CITRATE INJ 50 MCG/1 ML 2 ML VIAL IV SCH; -GUAISYP4 PO; -HYCUDL5 PO; -LIDOCAINE 4% INH SOLN 4 ML BTL ONE; -LIDOCAINE HCL 2% LOCAL 50ML VIAL INFIL ONE; -MIDAZOLAM HCL 5 MG/ML 1 ML VIAL IV ONE; -MIDAZOLAM HCL 5 MG/ML 1 ML VIAL IV SCH; -NURSING VERBAL MED ORDER ONE; -PRED10TA PO; -SENN8.6T7 PO; -SERT-234 PO; -ZNF4 PO
[2016-11-12] MEDS ORDERED: METHYLPREDNISOLONE 125 MG VIAL IV STA (22:14)
[2016-11-12] MEDS ORDERED: ALBUT/IPRATROP 3MG/0.5MG NEB 3 ML VIAL INH ONE (22:15)
[2016-11-12 22:19] LABS: BASO % 0.1 %; BASO ABS # 0.01 K/uL (0-0.2); COMPLETE YES; EOS % 0.3 %; HEMATOCRIT 37.2 % (37-47); IG% 0.5 %; LYMPH % 19.8 %; LYMPH ABS # 2.56 K/uL (1.2-3.4); MEAN CELL VOLUME 81.2 fL (80-100); MEAN CORPUSCULAR HEMOGLOBIN 24.7 pg (25-34); MEAN CORPUSCULAR HGB CONC 30.4 g/dl (32-36); MEAN PLATELET VOLUME 9.6 fL (7.4-10.4); MONO % 7.1 %; NEUT % 72.2 %; PLATELET COUNT 419 K/uL (130-400); RED BLOOD COUNT 4.58 M/uL (4.2-5.4); WHITE BLOOD COUNT 12.93 K/uL (4.8-10.8)
[2016-11-12 22:25] LABS: BUN/CREATININE RATIO 12.7 (10-20); CALCIUM 8.6 mg/dl (8.5-10.1); CREATININE 1.1 mg/dl (0.60-1.20)
[2016-11-12 22:28] LABS: ALB/GLOB RATIO 1.1 (0.9-2)
[2016-11-12 22:31] LABS: INR 0.9 (0.9-1.1); PARTIAL THROMBOPLASTIN RATIO 0.9; PROTHROMBIN TIME (PATIENT) 9.6 SECONDS (9.0-12.0)
[2016-11-12 22:34] VITALS: PULSE 80; O2SAT 96
--- NOTE | 2016-11-12 22:36 | DIAGNOSTIC IMAGING REPORT ---
CHEST ONE VIEW PORTABLE CLINICAL HISTORY: 66 years-old Female presenting with SOB COUGH. TECHNIQUE: Portable upright AP view of the chest was obtained. COMPARISON: 08/06/2016. FINDINGS: Cardiomediastinal silhouette normal. Lungs hyperinflated. Lungs and pleural spaces clear. Osseous structures normal. Upper abdomen normal. IMPRESSION: 1. Hyperinflation. Otherwise no evidence of acute cardiopulmonary disease. Electronically signed by: Diogenes Moreau M.D. 11/12/2016 10:35 PM Dictated Date/Time: 11/12/2016 10:34 PM
[2016-11-12 22:50] LABS: VEN BLD GAS O2 SATURATION 97.2 %; VEN BLOOD GAS BASE EXCESS 4.5 mEq/L
[2016-11-12 23:08] LABS: MAGNESIUM 2.2 mg/dl (1.8-2.4)
[2016-11-12] MEDS ORDERED: POTASSIUM CHLORIDE 10 MEQ TABCR PO STA (23:33)
[2016-11-12] MEDS ORDERED: LACTATED RINGER'S 1000ML 1,000 ML IV ONE (23:45)
[2016-11-12] MEDS ORDERED: DOXYCYCLINE IV 100 MG in DEXTROSE 5% 100ML 100 ML IV STA (23:47)
[2016-11-12] MEDS ORDERED: MAGNESIUM SULFATE 1GM / D5W 1 GM BAG IV STA (23:54)
[2016-11-13] VITALS (8 sets, daily range): BP systolic 102–132; BP diastolic 60–74; PULSE 76–114; TEMP 36.3–36.8; O2SAT 92–98; Ht 172.7 cm; Wt 70.7 kg
[2016-11-13] MEDS ORDERED: BENZONATATE 100MG CAP PO ONE (00:46)
[2016-11-13] MEDS ORDERED: GUAIFENESIN 600 MG TABCR PO ONE (00:46)
[2016-11-13] MEDS ORDERED: LEVALBUTEROL/IPRATROPIUM NEB INH PRN (01:30)
--- NOTE | 2016-11-13 01:40 | EMERGENCY ROOM VISIT NOTE ---
History First contact with patient: 22:07 Chief Complaint: SHORTNESS OF BREATH Stated Complaint: COUGH,SOB Nursing Triage Summary: Pt having shortness of breath, lungs hurt when coughing and sweaty/clammy. Pt saw Dr Abdi last week and was prescribed steroids and cough medicine with codeine. Sx have been getting worse. cough non productive. medications not helping. History of Present Illness The patient is a 66 year old female who presents to the Emergency Room with complaints of cough, wheezing and shortness of breath is getting progressively worse for the past week. Patient saw her actuarial trainee and family doctor this week for her symptoms. She has been taking her Medrol Dosepak as directed. Patient is chronically on 2 L O2. Patient plans of a chronic cough that is unchanged. No increase in production of sputum. Patient denies chest pain, abdominal pain, leg pain or swelling, cold symptoms. Patient states she's having problems breathing and this is getting worse. She has COPD. Review of Systems See HPI for pertinent positives & negatives. A total of 10 systems reviewed and were otherwise negative. 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) Surgical Problems: (1) H/O cervical spine surgery (2) H/O colonoscopy (3) H/O hysterectomy with oophorectomy (4) History of cataract surgery (5) S/P appendectomy (6) S/p exploration of abdomen (7) S/p left sided discectomy, L3-4 (8) S/P lumbar spinal fusion (9) S/p lumbar spine revision (10) S/P tonsillectomy Family History Blood clots MOTHER Cardiac disorder BROTHER (congenital heart disease) FH: CHF (congestive heart failure) MOTHER FH: heart disease MOTHER GRANDMOTHER FH: lung disease Hypertension Social History Smoking Status: Former Smoker Drug Use: none Marital Status: single Housing Status: lives alone Occupation Status: retired Current/Historical Medications Scheduled Ascorbic Acid (Vitamin C), 500 MG PO HS Atorvastatin (Atorvastatin Calcium), 10 MG PO HS Budesonide (Inhalation) (Pulmicort), 0.5 MG NEB BID Cholecalciferol (Vitamin D3), 1 TAB PO QPM Cholecalciferol (Vitamin D3), 2,000 UNITS PO QAM Furosemide (Furosemide), 20 MG PO QAM Home O2 Therapy (Oxygen), 2 LITERS NA CONTINOUS Ipratropium-Albuterol (Duoneb), 3 ML INH Q6 Pantoprazole (Protonix), 40 MG PO BID Potassium Ext Rel (Klor-Con), 20 MEQ PO QAM Ranitidine HCl (Ranitidine HCl), 150 MG PO BID Roflumilast (Daliresp), 1 TAB PO QAM Sertraline (Zoloft), 100 MG PO DAILY Tiotropium Boyd-Olodaterol (Stiolto Respimat 2.5-2.5 Mcg/Act), 2 PUFFS INH DAILY Scheduled PRN Albuterol Sulfate (Proair Respiclick), 2 PUFFS INH Q4 PRN for SOB/Wheezing Lorazepam (Lorazepam), 1 MG PO TID PRN for Anxiety Nystatin (Nystatin Suspension), 5 ML PO QID PRN for Thrush Ondansetron Hcl (Zofran), 4 MG PO Q8 PRN for Nausea Tramadol (Ultram), 50 MG PO Q6H PRN for Pain Physical Exam Vital Signs Date Time Temp Pulse Resp B/P (MAP) Pulse Ox O2 Delivery O2 Flow Rate FiO2 11/13/16 01:21 95 20 125/63 96 Room Air 11/12/16 22:35 88 22 129/74 95 Nasal Cannula 2.0 11/12/16 22:34 80 18 96 Nasal Cannula 2.0 11/12/16 22:10 98 Nasal Cannula 2.0 11/12/16 21:59 91 11/12/16 21:44 88 20 143/74 97 Nasal Cannula 2.0 11/12/16 21:39 98 Nasal Cannula 2.0 11/12/16 21:39 97 Nasal Cannula 2.0 11/12/16 21:26 37.2 91 22 127/78 97 Nasal Cannula 2.0 Physical Exam VITALS: Vitals are noted on the nurse's note and reviewed by myself. Vital signs stable. GENERAL: White female appearing older than stated age with audible wheeze having difficulty speaking in full sentences on nasal cannula. SKIN: The skin was without rashes, erythema, edema, or bruising. There is no tenting of the skin. Capillary reflex less than 2 seconds. HEAD: Normocephalic atraumatic. EARS: External auditory canals clear, tympanic membranes pearly [place] without erythema or effusion bilaterally. EYES: Pupils equal round and reactive to light and accommodation. Conjunctivae without injection, sclerae without icterus. Extraocular movements intact. NOSE: Patent, turbinates without inflammation or discharge. No sinus tenderness. MOUTH: Mucous membranes mildly dry. Pharynx without erythema or exudate. Uvula midline. Airway patent. Tongue does not deviate. NECK: Supple without nuchal rigidity. No lymphadenopathy. No thyromegaly. Cervical spine is nontender. No JVD. HEART: Regular rate and rhythm LUNGS: Diffuse inspiratory and end expiratory wheezes, without rales or rhonchi. No dullness to percussion. ABDOMEN: Positive bowel sounds x 4. Normal tympanic percussion. Soft, nontender, without masses or organomegaly. Robin sign negative. No guarding or rebound tenderness. MUSCULOSKELETAL: No muscle atrophy, erythema, or edema noted. NEURO: Patient was alert and oriented to person place and time. Normal sensation to light and sharp touch. No focal neurological deficits. Medical Decision & Procedures Laboratory Results 11/12/16 21:50 Red Blood Count 4.58, Mean Corpuscular Volume 81.2, Mean Corpuscular Hemoglobin 24.7, Mean Corpuscular Hemoglobin Concent 30.4, Mean Platelet Volume 9.6, Neutrophils (%) (Auto) 72.2, Lymphocytes (%) (Auto) 19.8, Monocytes (%) (Auto) 7.1, Eosinophils (%) (Auto) 0.3, Basophils (%) (Auto) 0.1, Neutrophils # (Auto) 9.34, Lymphocytes # (Auto) 2.56, Monocytes # (Auto) 0.92, Eosinophils # (Auto) 0.04, Basophils # (Auto) 0.01 11/12/16 21:50 Test 11/12/16 21:50 11/12/16 22:05 11/12/16 22:40 11/12/16 22:46 White Blood Count 12.93 K/uL (4.8-10.8) Red Blood Count 4.58 M/uL (4.2-5.4) Hemoglobin 11.3 g/dL (12.0-16.0) Hematocrit 37.2 % (37-47) Mean Corpuscular Volume 81.2 fL (80-100) Mean Corpuscular Hemoglobin 24.7 pg (25-34) Mean Corpuscular Hemoglobin Concent 30.4 g/dl (32-36) Platelet Count 419 K/uL (130-400) Mean Platelet Volume 9.6 fL (7.4-10.4) Neutrophils (%) (Auto) 72.2 % Lymphocytes (%) (Auto) 19.8 % Monocytes (%) (Auto) 7.1 % Eosinophils (%) (Auto) 0.3 % Basophils (%) (Auto) 0.1 % Neutrophils # (Auto) 9.34 K/uL (1.4-6.5) Lymphocytes # (Auto) 2.56 K/uL (1.2-3.4) Monocytes # (Auto) 0.92 K/uL (0.11-0.59) Eosinophils # (Auto) 0.04 K/uL (0-0.5) Basophils # (Auto) 0.01 K/uL (0-0.2) RDW Standard Deviation 44.3 fL (36.4-46.3) RDW Coefficient of Variation 15.0 % (11.5-14.5) Immature Granulocyte % (Auto) 0.5 % Immature Granulocyte # (Auto) 0.06 K/uL (0.00-0.02) Prothrombin Time 9.6 SECONDS (9.0-12.0) Prothromb Time International Ratio 0.9 (0.9-1.1) Activated Partial Thromboplast Time 23.9 SECONDS (21.0-31.0) Partial Thromboplastin Ratio 0.9 D-Dimer 200 ug/L FEU (0-500) Anion Gap 9.0 mmol/L (3-11) Est Creatinine Clear Calc Drug Dose 50.0 ml/min Estimated GFR () 60.2 Estimated GFR (Non- 51.9 BUN/Creatinine Ratio 12.7 (10-20) Calcium Level 8.6 mg/dl (8.5-10.1) Total Bilirubin 0.1 mg/dl (0.2-1) Aspartate Amino Transf (AST/SGOT) 8 U/L (15-37) Alanine Aminotransferase (ALT/SGPT) 10 U/L (12-78) Alkaline Phosphatase 99 U/L (45-117) Total Protein 6.9 gm/dl (6.4-8.2) Albumin 3.6 gm/dl (3.4-5.0) Globulin 3.3 gm/dl (2.5-4.0) Albumin/Globulin Ratio 1.1 (0.9-2) Bedside Troponin I < 0.030 ng/ml (0-0.045) Venous Blood pH 7.42 (7.36-7.41) Venous Blood Partial Pressure CO2 46 mmHg (38.0-50.0) Venous Blood Partial Pressure O2 94 mmHg Venous Blood HCO3 30 mmol/L Venous Blood Oxygen Saturation 97.2 % Venous Blood Base Excess 4.5 mEq/L Magnesium Level 2.2 mg/dl (1.8-2.4) Pro-B-Type Natriuretic Peptide 187 pg/ml (0-900) Bedside Lactic Acid Venous 1.21 mmol/L (0.90-1.70) Test 11/13/16 00:13 Influenza Type A Antigen Neg for Influ A (NEG) Influenza Type B Antigen Neg for Influ B (NEG) Medications Administered Medications (Trade) Dose Ordered Sig/Edis Route Start Time Stop Time Status Last Admin Dose Admin Albuterol/ Ipratropium (Duoneb) 12 ml ONE ONCE INH 11/12/16 22:15 11/12/16 22:16 DC 11/12/16 22:31 12 ML Methylprednisolone Sodium Succinate (Solu-Medrol IV) 125 mg NOW STAT IV 11/12/16 22:14 11/12/16 22:15 DC 11/12/16 22:27 125 MG Potassium Chloride (Klor-Con M10) 50 meq NOW STAT PO 11/12/16 23:33 11/12/16 23:47 DC 11/13/16 01:10 50 MEQ Doxycycline Hyclate 100 mg/ Dextrose 110 ml @ 50 mls/hr NOW STAT IV 11/12/16 23:47 11/13/16 01:58 11/13/16 00:19 50 MLS/HR ED Course Prior records/ancillary studies reviewed. Triage Nursing notes reviewed. Additional history obtained from the family. The patient's history was concerning for respiratory difficulties. Differential diagnosis: Etiologies such as infections, reactive airway disease, pneumonia, pneumothorax , COPD, CHF, cardiac ischemia, pulmonary embolism, musculoskeletal, gastrointestinal, as well as others were entertained. Physical examination: As above. ER treatment provided: Hour-long nebulizer, steroids, magnesium On reassessment the patient felt better. Diagnostic interpretation by me: The electrocardiogram was negative for acute ischemic or pathologic change. Normal sinus, normal intervals, no acute ST-T wave changes, rate of 94. Impression normal sinus interpreted by myself The labs revealed leukocytosis, hypokalemia, negative troponin Imaging studies: Chest x-ray as above. CHEST ONE VIEW PORTABLE CLINICAL HISTORY: 66 years-old Female presenting with SOB COUGH. TECHNIQUE: Portable upright AP view of the chest was obtained. COMPARISON: 08/06/2016. FINDINGS: Cardiomediastinal silhouette normal. Lungs hyperinflated. Lungs and pleural spaces clear. Osseous structures normal. Upper abdomen normal. IMPRESSION: 1. Hyperinflation. Otherwise no evidence of acute cardiopulmonary disease. Electronically signed by: Diogenes Moreau M.D. Consultation: A consultation was placed with Dr Joseph, hospitalist. The case was discussed and diagnostics were reviewed. The patient was evaluated in the ER for further treatment. This appears to be consistent with COPD exacerbation. Patient was still having difficulties breathing and speaking in full sentences. She'll be evaluated by medicine for possible admission. She had no pneumonia. She was given an hour- long nebulizer, steroids and magnesium. She was hydrated as above. Negative troponin. Normal EKG. Negative d-dimer. She had no change in her sputum production. By the evaluation outlined above emergent etiologies such as CHF, cardiac ischemia, pulmonary embolism, pneumonia, pneumothorax, musculoskeletal , serious bacterial infections, as well as others were deemed relatively unlikely. The pt informed about the findings as listed above. All questions were answered and pleased with the treatment. Case reviewed with my attending Medical Decision As above Medication Reconcilliation Current Medication List: was personally reviewed by me Blood Pressure Screening Patient's blood pressure: Normal blood pressure Impression Primary Impression: COPD exacerbation Departure Information Dispostion Being Evaluated By Hospitalist Condition FAIR Referrals North Clemons MD (PCP) Patient Instructions My [facility]
[2016-11-13] MEDS ORDERED: IPRATROPIUM BROMIDE NEB SOLN 0.02% 2.5 ML VIAL INH PRN (01:45)
[2016-11-13] MEDS ORDERED: LEVALBUTEROL 1.25MG/0.5ML NEB INH PRN (01:45)
[2016-11-13] MEDS: IPRATROPIUM BROMIDE NEB SOLN 0.02% 2.5 ML VIAL INH SCH ×4 (02:24→19:26)
[2016-11-13] MEDS: LEVALBUTEROL 1.25MG/0.5ML NEB INH SCH ×4 (02:25→19:26)
[2016-11-13] MEDS ORDERED: LEVALBUTEROL/IPRATROPIUM NEB INH SCH (03:00)
--- NOTE | 2016-11-13 03:57 | HISTORY & PHYSICAL EXAMINATION ---
DATE OF ADMISSION: 11/13/2016 PRIMARY CARE DOCTOR: Dr. Clemons. CHIEF COMPLAINT: Shortness of breath, persistent cough. HISTORY OF PRESENT ILLNESS: History obtained from patient and records. Medical history is significant for chronic respiratory failure secondary to COPD on home O2, past tobacco/alcohol abuse, hyperlipidemia, IBS per his records, ELÍAS as per records, GERD. Chronic anemia, baseline hemoglobin of 10. Recent confinement in June 2016 for COPD exacerbation. Recent bronchoscopy was July 2016, which showed diffuse segmental airway collapse on both bronchial tree. Two weeks ago, the patient was seen at a agricultural plow operator's office for chronic cough follow-up. Chronic cough has decreased her overall quality of life with continued use of guaifenesin as per note. Plan was to send patient for second opinion from another agricultural plow operator. This week, the patient noted worsening cough symptoms, productive of white sputum, chest pain with coughing, no fever, no chills, increasing shortness of breath. Reflux symptoms controlled as per the patient. PCP started patient on outpatient course of prednisone, no response. At the Emergency Room, the patient received Solu-Medrol, and breathing treatment for COPD exacerbation. MEDICAL HISTORY: As above. Outpatient CT chest 2017 showed an altered pulmonary micro nodularity, moderate tortuosity/ectasia of thoracic aorta. No concerns for aspiration on swallow eval in 2016. SURGERIES: She has had gynecologic procedures, back surgery, neck surgery, appendectomy, tonsillectomy, hysterectomy. HOME MEDICATIONS: Include, furosemide, oxygen, DuoNeb, lorazepam, nystatin, Zofran, Protonix, Klor-Con, ranitidine, Zoloft, Ultram, ProAir, atorvastatin, Pulmicort, vitamin B3, vitamin C. ALLERGIES: No known drug allergies. FAMILY HISTORY: Heart disease. 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 REVIEW OF SYSTEMS: As per HPI, all other ROS negative. PE : VITAL SIGNS: Blood pressure was noted to be 127/78 pulse rate 78, RR 22, temperature 36.8, sats 97 on 2L. GENERAL: Noted to be uncomfortable, no overt respiratory distress. Incessant coughing SKIN: Pallor. HEENT: Pale palpebral conjunctivae. Dry mucosa. NECK: No JVD. Supple. CHEST: Decreased breath sounds. Occasional wheeze. HEART: Regular rate and rhythm. ABDOMEN: Soft. EXTREMITIES: no edema, no tenderness NEUROLOGIC: No gross focality. LABORATORY DATA: Hemoglobin is 11.3, hematocrit 37.2, white cell count 12.9, platelets 419. Sodium 140, potassium 4.3, chloride 105, CO2 28, BUN 40, creatinine 1, glucose 103. D-dimer was normal. Troponin was less than 0.03. Chest x-ray: Hyperinflation. ASSESSMENT: 1. Chronic obstructive pulmonary disease exacerbation/chronic cough. Possible atypical pneumonia. No overt sepsis 2. Chronic respiratory failure secondary to COPD on home O2, oxygenation seems to be at baseline 3. Hypertension, stable. 4. Hypokalemia secondary to diuretic therapy. 5. Past tobacco/alcohol abuse. 6. Chronic anemia, hemoglobin baseline. PLAN: GMF Doxycycline, prednisone course, nebs RTC, p.r.n. Flu swab Antitussives when necessary Pulmonary consult (Dr. Casper) RE COPD exacerbation; chronic cough as per Dr. Abdi's outpatient recommendations Replace potassium. Hold home diuretics for now. DVT prophylaxis, Lovenox subQ. Full code. MTDD
[2016-11-13 05:10] LABS: INFLUENZA A PCR Neg for Influ A (NEG); INFLUENZA B PCR Neg for Influ B (NEG)
[2016-11-13 07:30] LABS: BASO % 0.1 %; BASO ABS # 0.01 K/uL (0-0.2); COMPLETE YES; HEMATOCRIT 34.7 % (37-47); IG% 0.6 %; LYMPH % 6.3 %; LYMPH ABS # 0.83 K/uL (1.2-3.4); MEAN CELL VOLUME 80.7 fL (80-100); MEAN CORPUSCULAR HGB CONC 32.3 g/dl (32-36); MEAN PLATELET VOLUME 9.2 fL (7.4-10.4); MONO % 1.4 %; NEUT % 91.6 %; PLATELET COUNT 371 K/uL (130-400); WHITE BLOOD COUNT 13.17 K/uL (4.8-10.8)
[2016-11-13] MEDS: ENOXAPARIN 40 MG/0.4 ML SYR SQ SCH (07:47)
[2016-11-13] MEDS: PANTOprazole SOD 40 MG TAB PO SCH ×2 (07:49→20:44)
[2016-11-13] MEDS: BENZONATATE 100MG CAP PO PRN ×2 (07:49→18:05)
[2016-11-13] MEDS: SERTRALINE HCL 50 MG TAB PO SCH (07:49)
[2016-11-13] MEDS: DOXYCYCLINE HYCLATE 100 MG CAP PO SCH ×2 (07:50→20:43)
[2016-11-13] MEDS: ROFLUMILAST 500 MCG TAB PO SCH (07:50)
[2016-11-13] MEDS: RANITIDINE HCL 150 MG TAB PO SCH ×2 (07:50→20:44)
[2016-11-13 07:55] LABS: CREATININE 0.91 mg/dl (0.60-1.20); POTASSIUM 3.5 mmol/L (3.5-5.1)
[2016-11-13] MEDS ORDERED: DOXYCYCLINE IV 100 MG in DEXTROSE 5% 100ML 100 ML IV SCH (09:00)
--- NOTE | 2016-11-13 10:46 | Progress Note ---
Internal Med Progress Note Date of Service: Nov 13, 2016. Provider Documentation: SUBJECTIVE: says sob is mildly better still has cough no chest pain no fevers no nausea OBJECTIVE: Vital Signs-as noted below Exam: General-alert and oriented. Not in distress ENT-normal hearing. Neck-no neck masses Lungs-cta b/l occasional b/l wheezing no crackles present Heart-s1 and s2 heard regular rhythm, no murmurs Abdomen-soft bowel sounds present non tender no distension Extremities no edema no erythema Neuro-alert and oriented moves extremities Lab data as noted below. ASSESSMENT & PLAN: 1. Chronic obstructive pulmonary disease exacerbation/chronic cough. Possible atypical pneumonia/acute bronchitis on po doxycycline, po prednisone, nebs and oxygen. Pulmonary consulted slow improvement 2. Chronic respiratory failure secondary to COPD on home O2, oxygenation seems to be at baseline 3. Hypertension, stable. 4. Hypokalemia secondary to diuretic therapy.Lasix on hold. To restart in am. 5. Past tobacco/alcohol abuse. 6. Chronic anemia, hemoglobin baseline. DVT PROPHYLAXIS lovenox DISPOSITION to be determined pt/ot prior to discharge Vital Signs: Date Time Temp Pulse Resp B/P (MAP) Pulse Ox O2 Delivery O2 Flow Rate FiO2 11/13/16 08:00 Nasal Cannula 2.0 11/13/16 07:31 36.3 114 20 132/74 (93) 92 Nasal Cannula 2.5 11/13/16 07:10 112 18 92 Nasal Cannula 2.0 11/13/16 02:56 36.8 105 18 102/71 97 Nasal Cannula 2.0 11/13/16 02:27 98 18 98 Nasal Cannula 2.0 11/13/16 01:21 95 20 125/63 96 Room Air 11/12/16 22:35 88 22 129/74 95 Nasal Cannula 2.0 11/12/16 22:34 80 18 96 Nasal Cannula 2.0 11/12/16 22:10 98 Nasal Cannula 2.0 11/12/16 21:59 91 11/12/16 21:44 88 20 143/74 97 Nasal Cannula 2.0 11/12/16 21:39 98 Nasal Cannula 2.0 11/12/16 21:39 97 Nasal Cannula 2.0 11/12/16 21:26 37.2 91 22 127/78 97 Nasal Cannula 2.0 Lab Results: Results Past 24 Hours Test 11/12/16 21:50 11/12/16 22:05 11/12/16 22:40 11/12/16 22:46 Range/Units White Blood Count 12.93 4.8-10.8 K/uL Red Blood Count 4.58 4.2-5.4 M/uL Hemoglobin 11.3 12.0-16.0 g/dL Hematocrit 37.2 37-47 % Mean Corpuscular Volume 81.2 80-100 fL Mean Corpuscular Hemoglobin 24.7 25-34 pg Mean Corpuscular Hemoglobin Concent 30.4 32-36 g/dl Platelet Count 419 130-400 K/uL Mean Platelet Volume 9.6 7.4-10.4 fL Neutrophils (%) (Auto) 72.2 % Lymphocytes (%) (Auto) 19.8 % Monocytes (%) (Auto) 7.1 % Eosinophils (%) (Auto) 0.3 % Basophils (%) (Auto) 0.1 % Neutrophils # (Auto) 9.34 1.4-6.5 K/uL Lymphocytes # (Auto) 2.56 1.2-3.4 K/uL Monocytes # (Auto) 0.92 0.11-0.59 K/uL Eosinophils # (Auto) 0.04 0-0.5 K/uL Basophils # (Auto) 0.01 0-0.2 K/uL RDW Standard Deviation 44.3 36.4-46.3 fL RDW Coefficient of Variation 15.0 11.5-14.5 % Immature Granulocyte % (Auto) 0.5 % Immature Granulocyte # (Auto) 0.06 0.00-0.02 K/uL Prothrombin Time 9.6 9.0-12.0 SECONDS Prothromb Time International Ratio 0.9 0.9-1.1 Activated Partial Thromboplast Time 23.9 21.0-31.0 SECONDS Partial Thromboplastin Ratio 0.9 D-Dimer 200 0-500 ug/L FEU Sodium Level 142 136-145 mmol/L Potassium Level 3.0 3.5-5.1 mmol/L Chloride Level 105 98-107 mmol/L Carbon Dioxide Level 28 21-32 mmol/L Anion Gap 9.0 3-11 mmol/L Blood Urea Nitrogen 14 7-18 mg/dl Creatinine 1.10 0.60-1.20 mg/dl Est Creatinine Clear Calc Drug Dose 50.0 ml/min Estimated GFR () 60.2 Estimated GFR (Non- 51.9 BUN/Creatinine Ratio 12.7 10-20 Random Glucose 103 70-99 mg/dl Calcium Level 8.6 8.5-10.1 mg/dl Total Bilirubin 0.1 0.2-1 mg/dl Aspartate Amino Transf (AST/SGOT) 8 15-37 U/L Alanine Aminotransferase (ALT/SGPT) 10 12-78 U/L Alkaline Phosphatase 99 45-117 U/L Total Protein 6.9 6.4-8.2 gm/dl Albumin 3.6 3.4-5.0 gm/dl Globulin 3.3 2.5-4.0 gm/dl Albumin/Globulin Ratio 1.1 0.9-2 Bedside Troponin I < 0.030 0-0.045 ng/ml Venous Blood pH 7.42 7.36-7.41 Venous Blood Partial Pressure CO2 46 38.0-50.0 mmHg Venous Blood Partial Pressure O2 94 mmHg Venous Blood HCO3 30 mmol/L Venous Blood Oxygen Saturation 97.2 % Venous Blood Base Excess 4.5 mEq/L Magnesium Level 2.2 1.8-2.4 mg/dl Pro-B-Type Natriuretic Peptide 187 0-900 pg/ml Bedside Lactic Acid Venous 1.21 0.90-1.70 mmol/L Test 11/13/16 00:13 11/13/16 07:05 Range/Units Influenza Type A (RT-PCR) Neg for Influ A NEG Influenza Type A Antigen Neg for Influ A NEG Influenza Type B Antigen Neg for Influ B NEG Influenza Type B (RT-PCR) Neg for Influ B NEG White Blood Count 13.17 4.8-10.8 K/uL Red Blood Count 4.30 4.2-5.4 M/uL Hemoglobin 11.2 12.0-16.0 g/dL Hematocrit 34.7 37-47 % Mean Corpuscular Volume 80.7 80-100 fL Mean Corpuscular Hemoglobin 26.0 25-34 pg Mean Corpuscular Hemoglobin Concent 32.3 32-36 g/dl Platelet Count 371 130-400 K/uL Mean Platelet Volume 9.2 7.4-10.4 fL Neutrophils (%) (Auto) 91.6 % Lymphocytes (%) (Auto) 6.3 % Monocytes (%) (Auto) 1.4 % Eosinophils (%) (Auto) 0.0 % Basophils (%) (Auto) 0.1 % Neutrophils # (Auto) 12.07 1.4-6.5 K/uL Lymphocytes # (Auto) 0.83 1.2-3.4 K/uL Monocytes # (Auto) 0.18 0.11-0.59 K/uL Eosinophils # (Auto) 0.00 0-0.5 K/uL Basophils # (Auto) 0.01 0-0.2 K/uL RDW Standard Deviation 44.2 36.4-46.3 fL RDW Coefficient of Variation 15.0 11.5-14.5 % Immature Granulocyte % (Auto) 0.6 % Immature Granulocyte # (Auto) 0.08 0.00-0.02 K/uL Sodium Level 142 136-145 mmol/L Potassium Level 3.5 3.5-5.1 mmol/L Chloride Level 104 98-107 mmol/L Carbon Dioxide Level 30 21-32 mmol/L Anion Gap 8.0 3-11 mmol/L Blood Urea Nitrogen 13 7-18 mg/dl Creatinine 0.91 0.60-1.20 mg/dl Est Creatinine Clear Calc Drug Dose 60.5 ml/min Estimated GFR () 75.7 Estimated GFR (Non- 65.3 BUN/Creatinine Ratio 14.0 10-20 Random Glucose 138 70-99 mg/dl Calcium Level 9.0 8.5-10.1 mg/dl
[2016-11-13] MEDS: ACETAMINOPHEN 325 MG TAB PO PRN ×2 (11:25→20:43)
[2016-11-13] MEDS: LORAZEPAM 1 MG TAB PO PRN ×2 (11:26→20:42)
--- NOTE | 2016-11-13 14:48 | Pulmonary Consultation ---
History General Date of Service: Nov 13, 2016. Stated Complaint: Chronic cough with progressive shortness of breath and chest pain HPI The patient is a 66 year old female who presents to [facility] with complaints of Copd Exacerbation. The patient's primary care provider is [place] Clem[place] MD. 66-year-old female admitted for chronic cough with associated shortness of breath. She has a past medical history significant for COPD (clinically severe), EDAC ( globally), chronic oxygen dependence (2L nc), ELÍAS, GERD/ esophageal candidiasis and hx of ETOH dependence and diastolic heart failure. She notes a progressive cough for the last week with notable posterior lower thoracic pain associated with intermittent coughing. She currently denies: Fever, chills, classic cardiac chest pain, pleurisy or productive cough. Current in-hospital workup: WBC: 13K (Neutro#: 12.07) H/H: PLT: 371K VB.42/46/94 INR: 0.9 PT: 9.6 PTT: 0.9 D-Dimer: 200 K+: 3.03.5 CO2: 28 BMP: 187 Troponin-I: <0.030 Influ A&B: Antigen and PCR assays both negative Chest x-ray: No acute intrapulmonary process Current in-hospital treatment: #1 Lasix 20 mg daily #2 guaifenesin 600 mg twice a day #3 Lovenox 30 mg subcutaneous daily #4 doxycycline 100 mg twice a day #5 ranitidine 150 mg twice a day #6 Daliresp 500 g daily #7 prednisone 40 mg daily #8 Xopenex/Atrovent nebulizers every 6 hours #9 Xopenex/Atrovent nebulizers every 4 hours when necessary shortness of breath Previous workup: Bronchoscopy 06/06/2016 Posterior oropharynx: Malinpoty IV Trachea: EDAC 70% narrowing approximately 3cm 1/3one trachea Right bronchial tree: Right upper lobe: 70% EDAC Bronchus intermedius: 90% EDAC Findings: EDAC/ greatest in the bronchus intermedius Bronchoscopy 01/23/2017 Microbiology: no growth Video Swallow (01/24/2016) No signs of aspiration Echocardiogram 10/21/2015: LV: EF= 60-65% RV: WNL Atria: WNL TV: WNL MV: WNL PV: WNL Trace loculated anterior pericardial effusion, medications for cardiac Nodule Grade I diastolic dysfunction Normal inferior vena cava size and collapsibility Pulmonary function test dated 08/03/2014 o FEV1/FVC: 73 o FEV1: 1.36/40% o FVC : 1.86/51% o Bronchodilator change: Significant post bronchodilator change for FVC CT Thorax (05/24/2016) compared to (01/22/2016) o Stable RML nodule @ 9mm o Multiple 2-[address] angiogram 01/22/2016 of the thorax o No pulmonary embolism o Right middle lobe [address] abdomen without and with contrast date 03/01/1999 o No suspicious findings in the pelvis CT thorax without contrast 10/25/2011 o Tree-in-bud opacifications in the left upper lobe o Left upper lobe nodules, measuring up to [address] of the thorax 10/25/2011 nodules compared to 03/17/2012 o Stable very small lung o Ectasia of the ascending thoracic aorta measuring 3.[address] of the abdomen pelvis with IV contrast o 12/23/2016 no significant findings ABG 01/22/2016: 7.42/45/130/29 on 2 liters nasal cannula PSG 07/25/2016: Diagnostic mild sleep apnea (AHI: 5.4) with a movement index at 22.7 Historian: patient Review of Systems Constitutional: reports: weakness Eyes: reports: no symptoms ENT: reports: no symptoms Cardiovascular: reports: as stated in HPI Respiratory: reports: as stated in HPI Gastrointestinal: reports: no symptoms Genitourinary - Female: reports: no symptoms Musculoskeletal: reports: no symptoms Integumentary: reports: no symptoms Neurologic: reports: no symptoms Psychiatric: reports: no symptoms Endocrine: no symptoms Hematologic / Lymphatic: no symptoms Allergic / Immunologic: no symptoms Past Medical History Past Medical History: #1 COPD: Prolonged, Daliresp, guaifenesin before meals, albuterol/ipratropium nebulizer, pantoprazole, Pro Air HFA and rigidity #2 Hypertension #3 cystic kidney disease #4 GERD #5 peptic ulcer disease #6 osteoporosis #7 vitamin D deficiency next line #8 thoracic aortic ectasia #9 ELÍAS: Currently on oxygen could not tolerate CPAP (refuses CPAP) #10 angina #11 L4/L5 spondylolisthesis #12 chronic anemia #13 Oxygen dependent 2L nc #14 esophageal candidiasis #15 EDAC -- refuses CPAP #16 IBS #17 Chronic Cough #18 Hypoxia #19 pulmonary nodule Past Surgical History: #1 L3-L4 discectomy with foraminotomy 1999 #2 Appendectomy #3 Adenoidectomy #4 Tonsillectomy #5 hysterectomy #6 Left arm cyst excision #7 Lumbar fusion health 5 through S1 2004 #8 Colostomy #9 S1 through S1 laminectomy with fusion Family History Blood clots MOTHER Cardiac disorder BROTHER (congenital heart disease) FH: CHF (congestive heart failure) MOTHER FH: heart disease MOTHER GRANDMOTHER FH: lung disease Hypertension Blood clots MOTHER Cardiac disorder BROTHER (congenital heart disease) FH: CHF (congestive heart failure) MOTHER FH: heart disease MOTHER GRANDMOTHER FH: lung disease Hypertension heart disease lung disease Hypertension Social History Hx Tobacco Use In Past Year?: No (QUIT 2013) Smoking Status: Former Smoker (greater than 16-[id number] history) Alcohol: history of alcohol abuse Drug Use: none Occupational Status: unemployed, disabled Hx Tobacco Use In Past Year?: No (QUIT 3YRS AGO) Smoking Status: Never Smoker Alcohol: history of alcohol abuse Drug Use: none Marital status: single Occupational Status: retired Hx Tobacco Use In Past Year?: No Smoking Status: Former Smoker Alcohol: history of alcohol abuse Drug Use: none Marital status: single Occupational Status: retired Immunizations History of Influenza Vaccine: Yes Influenza Vaccine Date: Dec 16, 2015 History of Tetanus Vaccine?: Yes Tetanus Immunization Date: Sep 08, 2009 History of Pneumococcal: Yes Pneumococcal Date: Mar 17, 2014 Allergies Coded Allergies: No Known Allergies (Unverified , 11/12/16) PER PATIENT Current Medications Reported Home Medications Medications Dose Route/Sig Max Daily Dose Days Date Category Dose Instructions Vitamin D3 (Cholecalciferol) 1,000 Inter.unit Tab 2,000 Units PO QAM 07/07/16 Reported Vitamin D3 (Cholecalciferol) 1,000 Unit Tab 1 Tab PO QPM 90 07/07/16 Reported Proair Respiclick (Albuterol Sulfate) 108 Mcg/Act Aer 2 Puffs INH Q4 PRN 07/07/16 Reported Zoloft (Sertraline HCl) 50 Mg Tab 100 Mg PO DAILY 07/07/16 Reported Zofran (Ondansetron HCl) 4 Mg Tab 4 Mg PO Q8 PRN 06/06/16 Reported Protonix (Pantoprazole Sodium) 40 Mg Tab 40 Mg PO BID 03/13/16 Reported Daliresp (Roflumilast) 500 Mcg Tab 1 Tab PO QAM 30 03/03/16 Reported Stiolto Respimat 2.5-2.5 Mcg/Act (Tiotropium Morris-Olodaterol) 1 Aer Aer 2 Puffs INH DAILY 01/19/16 Reported INHALE 2 PUFFS DAILY Klor-Con (Potassium Chloride) 20 Meq Tabcr 20 Meq PO QAM 12/26/15 Reported Pulmicort (Budesonide (Inhalation)) 1 Mg/2 Ml Enedina 0.5 Mg NEB BID 10/21/15 Reported Lorazepam 1 Mg Tab 1 Mg PO TID PRN 10/21/15 Reported Ranitidine HCl 150 Mg Tab 150 Mg PO BID 10/21/15 Reported Atorvastatin Calcium (Atorvastatin) 10 Mg Tab 10 Mg PO HS 10/21/15 Reported Furosemide 20 Mg Tab 20 Mg PO QAM 10/21/15 Reported Oxygen Gas 2 Liters NA CONTINOUS 09/25/15 Reported ALWAYS USES HS/DURING DAY PRN Duoneb (Ipratropium-Albuterol) 3 Ml Nebu 3 Ml INH Q6 09/25/15 Reported Ultram (Tramadol HCl) 50 Mg Tab 50 Mg PO Q6H PRN 09/25/15 Reported Nystatin Suspension (Nystatin) 1 Ml Susp 5 Ml PO QID PRN 09/25/15 Reported SWISH AND SWALLOW Vitamin C (Ascorbic Acid) 500 Mg Cap 500 Mg PO HS 08/18/14 Reported Physical Physical Exam Vital Signs: Date Time Temp Pulse Resp B/P (MAP) Pulse Ox O2 Delivery O2 Flow Rate FiO2 11/13/16 13:05 100 18 98 Nasal Cannula 2.0 11/13/16 08:00 Nasal Cannula 2.0 11/13/16 07:31 36.3 114 20 132/74 (93) 92 Nasal Cannula 2.5 11/13/16 07:10 112 18 92 Nasal Cannula 2.0 11/13/16 02:56 36.8 105 18 102/71 97 Nasal Cannula 2.0 11/13/16 02:27 98 18 98 Nasal Cannula 2.0 11/13/16 01:21 95 20 125/63 96 Room Air 11/12/16 22:35 88 22 129/74 95 Nasal Cannula 2.0 11/12/16 22:34 80 18 96 Nasal Cannula 2.0 11/12/16 22:10 98 Nasal Cannula 2.0 11/12/16 21:59 91 11/12/16 21:44 88 20 143/74 97 Nasal Cannula 2.0 11/12/16 21:39 98 Nasal Cannula 2.0 11/12/16 21:39 97 Nasal Cannula 2.0 11/12/16 21:26 37.2 91 22 127/78 97 Nasal Cannula 2.0 General Appearance: WELL-APPEARING, NO APPARENT DISTRESS Head: NORMOCEPHALIC, ATRAUMATIC Eyes: PERRLA, NO DISCHARGE, EOMI ENT: NORMAL EAR EXAM, NORMAL NASAL EXAM, NORMAL MOUTH EXAM, NORMAL THROAT EXAM Neck: NORMAL RANGE OF MOTION, NO TENDERNESS, TRACHEA MIDLINE Respiratory: other (minimal rhonchi bilaterally no expiratory wheezing noted) Cardiovasular: REGULAR RATE/RHYTHM, NORMAL S1S2, NO M/G/R, NO MURMUR, NO GALLOP Abdomen: NON TENDER, NORMAL BOWEL SOUNDS, NO REBOUND, NO MASSES, NO GUARDING, NO ORGANOMEGALY Genitourinary - Female: EXTERNAL GENITALIA NORMAL Back: NORMAL INSPECTION, NO MIDLINE TENDERNESS, NO CVA TENDERNESS Upper Extremities: NO EDEMA, NO DEFORMITY, NORMAL ROM Lower Extremities: NO EDEMA, NO DEFORMITY, NORMAL ROM, other (well-healing right lower extremity) Pulses: carotid (R) (2+), carotid (L) (2+), posterior tibial (R) (2+), posterior tibial (L) (2+) Neuro: ALERT, ORIENTED x 3, NORMAL MOTOR EXAM, NORMAL SENSATION, NORMAL CEREBELLAR EXAM, NORMAL SPEECH, NORMAL GAIT Reflexes: biceps (R) (2+), bicpes (L) (2+), achilles (R) (2+), achilles (L) (2+ ) Babinski Testing: right (downgoing), left (downgoing) Psychiatric: NORMAL AFFECT, NO SUICIDAL IDEATION Diagnostics Labs Results Past 24 Hours Test 11/12/16 21:50 11/12/16 22:05 11/12/16 22:40 11/12/16 22:46 Range/Units White Blood Count 12.93 4.8-10.8 K/uL Red Blood Count 4.58 4.2-5.4 M/uL Hemoglobin 11.3 12.0-16.0 g/dL Hematocrit 37.2 37-47 % Mean Corpuscular Volume 81.2 80-100 fL Mean Corpuscular Hemoglobin 24.7 25-34 pg Mean Corpuscular Hemoglobin Concent 30.4 32-36 g/dl Platelet Count 419 130-400 K/uL Mean Platelet Volume 9.6 7.4-10.4 fL Neutrophils (%) (Auto) 72.2 % Lymphocytes (%) (Auto) 19.8 % Monocytes (%) (Auto) 7.1 % Eosinophils (%) (Auto) 0.3 % Basophils (%) (Auto) 0.1 % Neutrophils # (Auto) 9.34 1.4-6.5 K/uL Lymphocytes # (Auto) 2.56 1.2-3.4 K/uL Monocytes # (Auto) 0.92 0.11-0.59 K/uL Eosinophils # (Auto) 0.04 0-0.5 K/uL Basophils # (Auto) 0.01 0-0.2 K/uL RDW Standard Deviation 44.3 36.4-46.3 fL RDW Coefficient of Variation 15.0 11.5-14.5 % Immature Granulocyte % (Auto) 0.5 % Immature Granulocyte # (Auto) 0.06 0.00-0.02 K/uL Prothrombin Time 9.6 9.0-12.0 SECONDS Prothromb Time International Ratio 0.9 0.9-1.1 Activated Partial Thromboplast Time 23.9 21.0-31.0 SECONDS Partial Thromboplastin Ratio 0.9 D-Dimer 200 0-500 ug/L FEU Sodium Level 142 136-145 mmol/L Potassium Level 3.0 3.5-5.1 mmol/L Chloride Level 105 98-107 mmol/L Carbon Dioxide Level 28 21-32 mmol/L Anion Gap 9.0 3-11 mmol/L Blood Urea Nitrogen 14 7-18 mg/dl Creatinine 1.10 0.60-1.20 mg/dl Est Creatinine Clear Calc Drug Dose 50.0 ml/min Estimated GFR () 60.2 Estimated GFR (Non- 51.9 BUN/Creatinine Ratio 12.7 10-20 Random Glucose 103 70-99 mg/dl Calcium Level 8.6 8.5-10.1 mg/dl Total Bilirubin 0.1 0.2-1 mg/dl Aspartate Amino Transf (AST/SGOT) 8 15-37 U/L Alanine Aminotransferase (ALT/SGPT) 10 12-78 U/L Alkaline Phosphatase 99 45-117 U/L Total Protein 6.9 6.4-8.2 gm/dl Albumin 3.6 3.4-5.0 gm/dl Globulin 3.3 2.5-4.0 gm/dl Albumin/Globulin Ratio 1.1 0.9-2 Bedside Troponin I < 0.030 0-0.045 ng/ml Venous Blood pH 7.42 7.36-7.41 Venous Blood Partial Pressure CO2 46 38.0-50.0 mmHg Venous Blood Partial Pressure O2 94 mmHg Venous Blood HCO3 30 mmol/L Venous Blood Oxygen Saturation 97.2 % Venous Blood Base Excess 4.5 mEq/L Magnesium Level 2.2 1.8-2.4 mg/dl Pro-B-Type Natriuretic Peptide 187 0-900 pg/ml Bedside Lactic Acid Venous 1.21 0.90-1.70 mmol/L Test 11/13/16 00:13 11/13/16 07:05 Range/Units Influenza Type A (RT-PCR) Neg for Influ A NEG Influenza Type A Antigen Neg for Influ A NEG Influenza Type B Antigen Neg for Influ B NEG Influenza Type B (RT-PCR) Neg for Influ B NEG White Blood Count 13.17 4.8-10.8 K/uL Red Blood Count 4.30 4.2-5.4 M/uL Hemoglobin 11.2 12.0-16.0 g/dL Hematocrit 34.7 37-47 % Mean Corpuscular Volume 80.7 80-100 fL Mean Corpuscular Hemoglobin 26.0 25-34 pg Mean Corpuscular Hemoglobin Concent 32.3 32-36 g/dl Platelet Count 371 130-400 K/uL Mean Platelet Volume 9.2 7.4-10.4 fL Neutrophils (%) (Auto) 91.6 % Lymphocytes (%) (Auto) 6.3 % Monocytes (%) (Auto) 1.4 % Eosinophils (%) (Auto) 0.0 % Basophils (%) (Auto) 0.1 % Neutrophils # (Auto) 12.07 1.4-6.5 K/uL Lymphocytes # (Auto) 0.83 1.2-3.4 K/uL Monocytes # (Auto) 0.18 0.11-0.59 K/uL Eosinophils # (Auto) 0.00 0-0.5 K/uL Basophils # (Auto) 0.01 0-0.2 K/uL RDW Standard Deviation 44.2 36.4-46.3 fL RDW Coefficient of Variation 15.0 11.5-14.5 % Immature Granulocyte % (Auto) 0.6 % Immature Granulocyte # (Auto) 0.08 0.00-0.02 K/uL Sodium Level 142 136-145 mmol/L Potassium Level 3.5 3.5-5.1 mmol/L Chloride Level 104 98-107 mmol/L Carbon Dioxide Level 30 21-32 mmol/L Anion Gap 8.0 3-11 mmol/L Blood Urea Nitrogen 13 7-18 mg/dl Creatinine 0.91 0.60-1.20 mg/dl Est Creatinine Clear Calc Drug Dose 60.5 ml/min Estimated GFR () 75.7 Estimated GFR (Non- 65.3 BUN/Creatinine Ratio 14.0 10-20 Random Glucose 138 70-99 mg/dl Calcium Level 9.0 8.5-10.1 mg/dl Diagnostic Radiology Chest x-ray: No acute intrapulmonary process EKG Interpretation: NORMAL EKG Impression Assessment and Plan 66-year-old female admitted for chronic cough with lower back pain: #1 Chronic Cough: Patient does have a history of COPD but she is also noted to have a history of EDAC (excessive dynamic airway collapse) and sleep apnea/ restless leg syndrome which are all known to exacerbate COPD. At this time the patient does not appear to be having an active infection but do agree with doxycycline for a total of 7-10 days. Also agree with current steroids were we should taper down quickly with the next 7-10 days. Patient is not really complaining of active shortness of breath only chronic cough at this time. Once again she has multiple comorbidities will exacerbate cough such as EDAC and sleep apnea but she is not inclined to use a CPAP device. She does agree to attempt to CPAP usage today and I will write for it is set at 8 cmH2O. #2 Chest Pain: Patient is not having chest pain at this time she is having lower back pain which is bilateral in nature I will order a MRI of the thoracic spine for further evaluation as the patient has been on steroids off and on for many years and possible osteopenia causing lumbar collapse. She'll most likely require Ativan prior to her MRI as the patient is noted to have anxiety.
[2016-11-13] MEDS ORDERED: LORAZEPAM 0.5 MG TAB PO PRN (16:00)
[2016-11-13] MEDS: GUAIFENESIN 600 MG TABCR PO SCH (20:43)
[2016-11-13] MEDS: ATORVASTATIN 10 MG TAB PO SCH (20:43)
[2016-11-14] VITALS (9 sets, daily range): BP systolic 110–126; BP diastolic 65–74; PULSE 72–88; TEMP 36.8–37.2; O2SAT 94–99
--- NOTE | 2016-11-14 00:02 | DIAGNOSTIC IMAGING REPORT ---
MRI OF THE THORACIC SPINE WITHOUT IV CONTRAST CLINICAL HISTORY: Thoracic back pain. COMPARISON STUDY: CT scan of the thorax dated 08/16/2016. TECHNIQUE: MRI of the thoracic spine is performed utilizing various T1 and T2-weighted sequences in the axial and sagittal planes. IV contrast was not administered for this examination. FINDINGS: Vertebral body height and alignment are maintained throughout the thoracic spine. Normal marrow signal intensity is preserved throughout the visualized bony structures. No destructive bony lesion is seen. Intervertebral disc spaces are well-maintained. Mild degenerative disc desiccation is noted. Minimal posterior disc bulge is seen eccentric to left at T1-T2. Minimal disc bulge is also seen at T3-T4, T4-T5, and T5-T6. There is no disc herniation or acquired compromise of the central canal. The spinal cord is normal in morphology and signal intensity. The conus medullaris terminates at the L1-L2 interspace. No significant neural foraminal stenosis is seen throughout the thoracic spine. The spinous processes are preserved. The paraspinous soft tissues are within normal limits. The lung parenchyma is grossly clear but not well evaluated by MRI. Degenerative change and partial bony fusion from C5 through C7 is partially imaged on the powder monkey sequence. IMPRESSION: 1. There is no disc herniation or acquired compromise of the central canal identified. 2. Minimal degenerative disc disease as above. 3. No bony abnormality is seen. 4. The spinal cord is normal in morphology and signal intensity. Dictated: 11/13/2016 11:01 PM Transcribed: 11/14/2016 12:02 AM [place] Electronically signed by: Ariel Chen M.D. 11/14/2016 1:16 PM Dictated Date/Time: 11/13/2016 11:01 PM
[2016-11-14] MEDS: IPRATROPIUM BROMIDE NEB SOLN 0.02% 2.5 ML VIAL INH SCH ×4 (01:43→20:24)
[2016-11-14] MEDS: LEVALBUTEROL 1.25MG/0.5ML NEB INH SCH ×4 (01:43→20:24)
[2016-11-14] MEDS: RANITIDINE HCL 150 MG TAB PO SCH ×2 (07:59→21:14)
[2016-11-14] MEDS: PANTOprazole SOD 40 MG TAB PO SCH ×2 (07:59→21:14)
[2016-11-14] MEDS: FUROSEMIDE 20 MG TAB PO SCH (08:00)
[2016-11-14] MEDS: ROFLUMILAST 500 MCG TAB PO SCH (08:00)
[2016-11-14] MEDS: DOXYCYCLINE HYCLATE 100 MG CAP PO SCH ×2 (08:00→21:14)
[2016-11-14] MEDS: GUAIFENESIN 600 MG TABCR PO SCH ×2 (08:00→21:14)
[2016-11-14] MEDS: POTASSIUM CHLORIDE 20 MEQ TABCR PO SCH (08:00)
[2016-11-14] MEDS: ENOXAPARIN 40 MG/0.4 ML SYR SQ SCH (08:01)
[2016-11-14] MEDS: LORAZEPAM 1 MG TAB PO PRN ×2 (08:03→21:19)
[2016-11-14] MEDS: SERTRALINE HCL 50 MG TAB PO SCH (09:00)
[2016-11-14] MEDS ORDERED: LEVALBUTEROL/IPRATROPIUM NEB INH ONE (11:15)
--- NOTE | 2016-11-14 11:22 | Progress Note ---
Medicine Progress Note Date & Time of Visit: Nov 14, 2016 at 11:15. Subjective patient seen resting in bed was coughing during middle of interview, states she feels sort of "tight with her breathing" this morning again starting to bring up white sputum denies chest pain still has left sided posterior back pain ,worse with coughing and movement denies other symptoms Objective Last 8 Hrs Date Time Temp Pulse Resp B/P (MAP) Pulse Ox O2 Delivery O2 Flow Rate FiO2 11/14/16 08:49 37.0 72 16 126/71 (89) 99 Nasal Cannula 1.5 11/14/16 08:00 Nasal Cannula 2.0 11/14/16 07:32 76 16 98 Nasal Cannula 2.0 Physical Exam: General- oriented x 3, not in distress, speaks in sentences with no effort Head- atraumatic Eyes- EOMI, anicteric ENT- oropharynx clear Neck- supple, no JVD, no adenopathy, no thyromegaly Lungs- mild rhonchi bilateral bases, no wheezes mild tenderness left posterior lower rib region Heart- regular rhythm; no murmur, normal rate Abdomen- normal bowel sounds, soft, nontender Extremities- no pretibial edema, no calf tenderness Neuro- alert, oriented x 3; no gross deficits Skin- warm & dry Assessment & Plan COPD Exacerbation secondary to Acute Bronchitis - history of chronic cough history of EDAC, ELÍAS - on PRN o2 via nasal cannula at home - CXR: no obvious infiltrate - on Doxycycline, Prednisone 40mg daily, Nebs q6 CPAP - Pulm consulted Hypertension, stable. Hypokalemia secondary to diuretic therapy resolved repeat PRP in AM Past tobacco/alcohol abuse. Chronic anemia, hemoglobin baseline. DVT prophylaxis: Lovenox Full Code as per patient Disposition: anticipate d/c home when medically stable, cleared by Pulmonary Current Inpatient Medications: Current Inpatient Medications Medications (Trade) Dose Ordered Sig/Edis Route Start Time Stop Time Status Last Admin Dose Admin Benzonatate (Tessalon Perles Cap) 100 mg Q8H PRN PO 11/13/16 01:00 12/13/16 00:59 11/13/16 18:05 100 MG Guaifenesin (Mucinex Contr Rel Tab) 600 mg Q12 PO 11/13/16 21:00 12/13/16 20:59 11/14/16 08:00 600 MG Enoxaparin Sodium (Lovenox Inj) 30 mg Q24H SQ 11/13/16 09:00 12/13/16 08:59 11/14/16 08:01 30 MG Acetaminophen (Tylenol Tab) 650 mg Q4H PRN PO 11/13/16 01:30 12/13/16 01:29 11/13/16 20:43 650 MG Doxycycline Hyclate (Vibramycin Cap) 100 mg BID PO 11/13/16 09:00 11/20/16 08:59 11/14/16 08:00 100 MG Atorvastatin Calcium (Lipitor Tab) 10 mg HS PO 11/13/16 21:00 12/13/16 20:59 11/13/16 20:43 10 MG Lorazepam (Ativan Tab) 1 mg TID PRN PO 11/13/16 01:30 12/13/16 01:29 11/14/16 08:03 1 MG Pantoprazole Sodium (Protonix Tab) 40 mg BID PO 11/13/16 09:00 12/13/16 08:59 11/14/16 07:59 40 MG Ranitidine HCl (zANTac TAB) 150 mg BID PO 11/13/16 09:00 12/13/16 08:59 11/14/16 07:59 150 MG Roflumilast (Daliresp Tab) 500 mcg QAM PO 11/13/16 09:00 12/13/16 08:59 11/14/16 08:00 500 MCG Tramadol HCl (Ultram Tab) 50 mg Q6H PRN PO 11/13/16 01:30 12/13/16 01:29 Prednisone (PredniSONE TAB) 40 mg DAILY PO 11/13/16 09:00 11/18/16 08:59 11/14/16 07:59 40 MG Ipratropium [place] (Atrovent 0.02% 0.5MG/2.5ML Neb) 0.5 mg Q6R INH 11/13/16 03:00 12/13/16 02:59 11/14/16 07:31 0.5 MG Levalbuterol (Xopenex 1.25MG/ 0.5ML Neb) 1.25 mg Q6R INH 11/13/16 03:00 12/13/16 02:59 11/14/16 07:31 1.25 MG Ipratropium [place] (Atrovent 0.02% 0.5MG/2.5ML Neb) 0.5 mg Q4H PRN INH 11/13/16 01:45 12/13/16 01:44 Levalbuterol (Xopenex 1.25MG/ 0.5ML Neb) 1.25 mg Q4H PRN INH 11/13/16 01:45 12/13/16 01:44 Furosemide (Lasix Tab) 20 mg QAM PO 11/14/16 09:00 12/14/16 08:59 11/14/16 08:00 20 MG Potassium Chloride (Klor-Con Tab) 20 meq QAM PO 11/14/16 09:00 12/14/16 08:59 11/14/16 08:00 20 MEQ Sertraline HCl (Zoloft Tab) 100 mg HS PO 11/14/16 21:00 12/13/16 08:59 Nystatin (Mycostatin Susp) 4 ml QID PO 11/14/16 13:00 11/24/16 12:59
[2016-11-14] MEDS ORDERED: IPRATROPIUM BROMIDE NEB SOLN 0.02% 2.5 ML VIAL INH STA (11:28)
[2016-11-14] MEDS ORDERED: LEVALBUTEROL 1.25MG/0.5ML NEB INH STA (11:28)
[2016-11-14] MEDS ORDERED: LIDODERM (LIDOCAINE) PATCH 5% TD ONE (11:45)
[2016-11-14] MEDS ORDERED: METHYLPREDNISOLONE IV 40 MG in SYRINGE 0 ML IV ONE (12:00)
--- NOTE | 2016-11-14 12:52 | PROGRESS NOTE ---
DATE: 11/14/2016 PROBLEM LIST: Includes: 1. Chronic cough. 2. Excessive dynamic airway collapse or EDAC. 3. History of COPD. 4. Left-sided rib pain. SUBJECTIVE: The patient reports that she is coughing more today. States that she is more congested and tight in her chest. She states that she is actually little bit worse than yesterday. States yesterday she was doing fairly well; however, overnight and today, she is coughing more. The cough is mostly nonproductive. She does notice little bit of wheezing. She does feel little bit more short of breath than normal as well. She states that the hospitalist, who is Dr. Davis, recently had ordered nebulizer treatment although that has not been started yet. She did try to use the CPAP overnight but was unable to tolerate it. She reports it is due to the stiffness of the mask. I did encourage her to have somebody bring her mask in from home to see if she can tolerate that any better. I did have a somewhat extended discussion with her regarding her CPAP usage and that it is beneficial. I also discussed with her the fact that it is something that will take time to get used to using, it is not something that typically she is going to be able to start up right away and use. She voiced understanding with this. She denies any other concerns or problems at this time. She is not having any unusual headache, no lightheadedness or dizziness. No chest pain. No chest pressure. She does have left-sided rib pain. Dr. Davis did order a rib x-ray for this. She is not having any GI issues. No nausea or vomiting, no indigestion or heartburn. No difficulty swallowing. No change in her bowels. No difficulty voiding. No swelling in her extremities. OBJECTIVE: GENERAL: The patient is a 66-year-old female, lying in bed. She does have a fair amount of coughing paroxysm when I am examining her today. Cough sounds a little bit tight, does not sound productive. No chest pain or painful respirations. She is alert and oriented x3. Mood is good. Affect is good. VITAL SIGNS: Temp 37.0, pulse 72, respirations 16, blood pressure is 126/71, pulse ox is 99% on 1.5 liters. HEENT: Normocephalic, atraumatic. Pupils equal, round and reactive to light and accommodation. Extraocular movements are intact. Draper moist gingival and buccal mucosa. NECK: Supple. No mass. No adenopathy. No bruit. CHEST: She does have some mild diffuse wheezing throughout, but primarily in the upper airways bilaterally on exhalation. No rales noted. CARDIOVASCULAR: Regular rate and rhythm. No murmurs, gallops or rubs appreciated. ABDOMEN: Bowel sounds present. Abdomen soft, nontender. No guarding, rigidity or organomegaly. EXTREMITIES: No erythema. No edema. No cyanosis or clubbing. NEUROLOGIC: Cranial nerves II-XII are intact. No focal deficit noted. LABORATORY DATA: Negative for influenza A and B. No new imaging data. IMPRESSION: The patient is a 66-year-old female with known chronic obstructive pulmonary disease as well as excessive dynamic airway collapse, who presents with chronic cough. The patient was doing better yesterday; however, today she is having little bit of cough and congestion. At this time, Dr. Davis, hospitalist, had ordered patient to have nebulizer in the form of levalbuterol and ipratropium. I agree with this. We are waiting for that to arrive. I would like to give the patient a one-time dose of Solu-Medrol 40 mg to see if this helps at all. Otherwise continue current meds as they are. I did encourage her to bring in her CPAP mask and again did have a long discussion with her about developing a tolerance to the CPAP and being able to use it. I am not sure if she is going to be compliant with this or not but we will keep working with her on this. If the cough persists and there is no significant improvement, may need to consider reimaging the patient to see if anything else has changed. Otherwise, we will continue to follow the patient through hospitalization. Patient seen and case reviewed and agree with current plan. AMARA
[2016-11-14] MEDS: NYSTATIN SUSP 500,000 U/5 ML UDC PO SCH ×3 (13:09→21:14)
--- NOTE | 2016-11-14 14:19 | DIAGNOSTIC IMAGING REPORT ---
LEFT RIBS UNILATERAL MIN 2 VIEWS CLINICAL HISTORY: 66 years-old Female presenting with r/o fracture. TECHNIQUE: Frontal and oblique views of the left ribs were obtained. COMPARISON: Chest CT from 08/16/2016. FINDINGS: Minimal cortical buckling of the anterior left seventh rib, which could suggest nondisplaced fracture. No displaced rib fracture. Left hemithorax demonstrates clear lung and pleural space. Partially visualized posterior lumbar fusion hardware. IMPRESSION: Suspicion for nondisplaced fracture of the left anterior seventh rib. Electronically signed by: Diogenes Moreau M.D. 11/14/2016 2:18 PM Dictated Date/Time: 11/14/2016 2:16 PM
[2016-11-14] MEDS: BENZONATATE 100MG CAP PO PRN (15:59)
[2016-11-14] MEDS: SERTRALINE HCL 100 MG TAB PO SCH (21:14)
[2016-11-14] MEDS: ATORVASTATIN 10 MG TAB PO SCH (21:14)
[2016-11-14] MEDS: TRAMADOL HCL 50 MG TAB PO PRN (21:20)
[2016-11-15] VITALS (12 sets, daily range): BP systolic 109–122; BP diastolic 65–70; PULSE 69–99; TEMP 36.6–36.9; O2SAT 92–98
[2016-11-15] MEDS: BENZONATATE 100MG CAP PO PRN ×2 (02:29→15:56)
[2016-11-15] MEDS: LEVALBUTEROL 1.25MG/0.5ML NEB INH SCH ×4 (02:41→19:11)
[2016-11-15] MEDS: IPRATROPIUM BROMIDE NEB SOLN 0.02% 2.5 ML VIAL INH SCH ×4 (02:41→19:11)
[2016-11-15 07:18] LABS: BUN/CREATININE RATIO 27.2 (10-20); CALCIUM 8.3 mg/dl (8.5-10.1); CREATININE 0.7 mg/dl (0.60-1.20); POTASSIUM 3.6 mmol/L (3.5-5.1)
[2016-11-15] MEDS: TRAMADOL HCL 50 MG TAB PO PRN ×2 (08:39→21:15)
[2016-11-15] MEDS: LORAZEPAM 1 MG TAB PO PRN ×2 (08:39→21:15)
[2016-11-15] MEDS: DOXYCYCLINE HYCLATE 100 MG CAP PO SCH ×2 (08:40→21:16)
[2016-11-15] MEDS: PANTOprazole SOD 40 MG TAB PO SCH ×2 (08:40→21:45)
[2016-11-15] MEDS: FUROSEMIDE 20 MG TAB PO SCH (08:40)
[2016-11-15] MEDS: RANITIDINE HCL 150 MG TAB PO SCH ×2 (08:40→21:15)
[2016-11-15] MEDS: ROFLUMILAST 500 MCG TAB PO SCH (08:40)
[2016-11-15] MEDS: GUAIFENESIN 600 MG TABCR PO SCH ×2 (08:41→20:25)
[2016-11-15] MEDS: NYSTATIN SUSP 500,000 U/5 ML UDC PO SCH ×4 (08:41→20:26)
[2016-11-15] MEDS: POTASSIUM CHLORIDE 20 MEQ TABCR PO SCH (08:41)
[2016-11-15] MEDS: LIDODERM (LIDOCAINE) PATCH 5% TD SCH (08:42)
[2016-11-15] MEDS: ENOXAPARIN 40 MG/0.4 ML SYR SQ SCH (08:43)
[2016-11-15] MEDS: HYDROCODONE/HOMATROPINE SYRUP 5MG/1.5MG 5ML UDP PO PRN ×2 (13:52→21:20)
--- NOTE | 2016-11-15 14:25 | PROGRESS NOTE ---
DATE: 11/15/2016 PULMONARY PROGRESS NOTE PROBLEM LIST: Include 1. Chronic cough. 2. Excessive dynamic airway collapse. 3. History of chronic obstructive pulmonary disease. 4. Left-sided rib pain secondary to fracture of the 7th rib. SUBJECTIVE: The patient had x-ray done of the ribs yesterday just showing a what appears to be a fracture of the left seventh rib. The patient has had a Lidoderm on, which was ordered by hospitalist and seems to be doing well. At this time, she states that the cough is much better than yesterday, although she still is coughing. She is not able to cough anything up. She states that her breathing is doing better as well. She has not had any tightness or been wheezy. 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 She denies any increased shortness of breath at present, she has not been up walking around. She has not had any chest pain, no palpitations, no fever or chills that she is aware of. No night sweats. No abdominal pain. No nausea or vomiting. No change in her bowels. No swelling in her extremities. OBJECTIVE: GENERAL: The patient is a 66-year-old female lying in bed. She is alert and oriented x3. Mood is good and affect is good. VITAL SIGNS: Temp 36.9, pulse 71, respirations 15, blood pressure is 122/66, pulse ox is 97% on 2 liters. HEENT: Normocephalic, atraumatic. Pupils equal, round and reactive to light and accommodation. Extraocular movements are intact. [place] moist gingival and buccal mucosa. NECK: Supple. No mass. No adenopathy. No bruit. CHEST: The patient does have a persistent harsh cough from time to time. Otherwise, lungs sounds, the patient has a few scattered expiratory wheeze. No rale or rhonchi noted. CARDIOVASCULAR: Regular rate and rhythm. There are no murmurs, gallops or rubs. ABDOMEN: Bowel sounds present. Abdomen soft, nontender, no guarding, rigidity or organomegaly. EXTREMITIES: No erythema or edema. NEUROLOGIC: Cranial nerves II through XII are intact. No focal deficits noted. IMAGING: A rib x-ray shows a fracture in the left seventh rib, which is nondisplaced is in the anterior segment. IMPRESSION: 1. A 66-year-old female with persistent cough which is a little bit better than yesterday. We will adjust some medications to see if we can suppress the cough especially in light of the rib fracture. 2. Excessive Dynamic Airway Collapse. The patient was encouraged to use her PAP therapy. She did bring in her own mask from home. 3. History of chronic obstructive pulmonary disease, which is O2 dependent. She is improving, still having a little bit of exacerbation, but overall improved from previous. 4. Left-sided rib pain with nondisplaced rib fracture. At this point, would recommend patient to continue medications as they are. Will add something in for cough. Continue oral prednisone. I did speak with the nurse and asked the nurse to encourage the patient to ambulate today. We will continue to follow through hospitalization. At this point, the patient is approaching her baseline and would anticipate ready for discharge in the next 24-48 hours. Patient seen examined and agree with above plan. AMARA
--- NOTE | 2016-11-15 17:36 | Progress Note ---
Medicine Progress Note Date & Time of Visit: Nov 15, 2016 at 17:34. Subjective patient seen resting in bed, comfortable, eating grapes states her breathing has improved today cough, back pain also better denies other symptoms Objective Last 8 Hrs Date Time Temp Pulse Resp B/P (MAP) Pulse Ox O2 Delivery O2 Flow Rate FiO2 11/15/16 15:06 36.9 83 18 109/65 (80) 96 Nasal Cannula 2.0 11/15/16 13:59 77 14 97 Nasal Cannula 2.0 11/15/16 11:43 97 Nasal Cannula 11/15/16 11:40 99 92 Room Air 11/15/16 09:50 94 Nasal Cannula 2.0 Physical Exam: General- oriented x 3, not in distress, speaks in sentences with no effort Eyes- anicteric Neck- supple, no JVD Lungs- clear breath sounds bilaterally, no rales/wheezes mild tenderness left posterior lower rib region Heart- regular rhythm; no murmur, normal rate Abdomen- normal bowel sounds, soft, nontender Extremities- no pretibial edema, no calf tenderness Neuro- alert, oriented x 3; no gross deficits Skin- warm & dry Laboratory Results: Last 24 Hours Test 11/15/16 06:13 Sodium Level 143 mmol/L Potassium Level 3.6 mmol/L Chloride Level 107 mmol/L Carbon Dioxide Level 30 mmol/L Anion Gap 6.0 mmol/L Blood Urea Nitrogen 19 mg/dl Creatinine 0.70 mg/dl Est Creatinine Clear Calc Drug Dose 78.6 ml/min Estimated GFR () 103.9 Estimated GFR (Non- 89.7 BUN/Creatinine Ratio 27.2 Random Glucose 101 mg/dl Calcium Level 8.3 mg/dl Assessment & Plan COPD Exacerbation secondary to Acute Bronchitis - history of chronic cough history of EDAC, ELÍAS - on PRN o2 via nasal cannula at home - CXR: no obvious infiltrate - on Doxycycline, Prednisone 40mg daily, Nebs q6 CPAP - improving gradually - Pulm consulted, appreciate the input Left Rib fracture - pain under control today - monitor Hypertension, stable. Hypokalemia secondary to diuretic therapy resolved repeat PRP in AM Past tobacco/alcohol abuse. Chronic anemia, hemoglobin baseline. DVT prophylaxis: Lovenox Full Code as per patient Disposition: anticipate d/c home when medically stable, cleared by Pulmonary Current Inpatient Medications: Current Inpatient Medications Medications (Trade) Dose Ordered Sig/Edis Route Start Time Stop Time Status Last Admin Dose Admin Benzonatate (Tessalon Perles Cap) 100 mg Q8H PRN PO 11/13/16 01:00 12/13/16 00:59 11/15/16 15:56 100 MG Guaifenesin (Mucinex Contr Rel Tab) 600 mg Q12 PO 11/13/16 21:00 12/13/16 20:59 11/15/16 08:41 600 MG Enoxaparin Sodium (Lovenox Inj) 30 mg Q24H SQ 11/13/16 09:00 12/13/16 08:59 11/15/16 08:43 30 MG Acetaminophen (Tylenol Tab) 650 mg Q4H PRN PO 11/13/16 01:30 12/13/16 01:29 11/13/16 20:43 650 MG Doxycycline Hyclate (Vibramycin Cap) 100 mg BID PO 11/13/16 09:00 11/20/16 08:59 11/15/16 08:40 100 MG Atorvastatin Calcium (Lipitor Tab) 10 mg HS PO 11/13/16 21:00 12/13/16 20:59 11/14/16 21:14 10 MG Lorazepam (Ativan Tab) 1 mg TID PRN PO 11/13/16 01:30 12/13/16 01:29 11/15/16 08:39 1 MG Pantoprazole Sodium (Protonix Tab) 40 mg BID PO 11/13/16 09:00 12/13/16 08:59 11/15/16 08:40 40 MG Ranitidine HCl (zANTac TAB) 150 mg BID PO 11/13/16 09:00 12/13/16 08:59 11/15/16 08:40 150 MG Roflumilast (Daliresp Tab) 500 mcg QAM PO 11/13/16 09:00 12/13/16 08:59 11/15/16 08:40 500 MCG Tramadol HCl (Ultram Tab) 50 mg Q6H PRN PO 11/13/16 01:30 12/13/16 01:29 11/15/16 08:39 50 MG Prednisone (PredniSONE TAB) 40 mg DAILY PO 11/13/16 09:00 11/18/16 08:59 11/15/16 08:40 40 MG Ipratropium [place] (Atrovent 0.02% 0.5MG/2.5ML Neb) 0.5 mg Q6R INH 11/13/16 03:00 12/13/16 02:59 11/15/16 13:59 0.5 MG Levalbuterol (Xopenex 1.25MG/ 0.5ML Neb) 1.25 mg Q6R INH 11/13/16 03:00 12/13/16 02:59 11/15/16 13:59 1.25 MG Ipratropium [place] (Atrovent 0.02% 0.5MG/2.5ML Neb) 0.5 mg Q4H PRN INH 11/13/16 01:45 12/13/16 01:44 Levalbuterol (Xopenex 1.25MG/ 0.5ML Neb) 1.25 mg Q4H PRN INH 11/13/16 01:45 12/13/16 01:44 Furosemide (Lasix Tab) 20 mg QAM PO 11/14/16 09:00 12/14/16 08:59 11/15/16 08:40 20 MG Potassium Chloride (Klor-Con Tab) 20 meq QAM PO 11/14/16 09:00 12/14/16 08:59 11/15/16 08:41 20 MEQ Sertraline HCl (Zoloft Tab) 100 mg HS PO 11/14/16 21:00 12/13/16 08:59 11/14/16 21:14 100 MG Nystatin (Mycostatin Susp) 4 ml QID PO 11/14/16 13:00 11/24/16 12:59 11/15/16 16:55 4 ML Lidocaine (Lidoderm Patch 5%) 1 patch QAM TD 11/15/16 09:00 12/15/16 08:59 11/15/16 08:42 1 PATCH Miscellaneous (Remove Lidoderm Patch) 1 ea DAILY@21 N/A 11/14/16 23:00 12/14/16 22:59 11/14/16 21:15 1 EA Hydrocodone Bit/ Homatropine Methylb (Hycodan Syrup) 5 ml Q6 PRN PO 11/15/16 12:00 11/29/16 11:59 11/15/16 13:52 5 ML
[2016-11-15] MEDS: SERTRALINE HCL 100 MG TAB PO SCH (20:26)
[2016-11-15] MEDS: ATORVASTATIN 10 MG TAB PO SCH (21:15)
[2016-11-16] VITALS (10 sets, daily range): BP systolic 104–136; BP diastolic 64–76; PULSE 73–93; TEMP 36.6–36.7; O2SAT 95–99
[2016-11-16] MEDS: LEVALBUTEROL 1.25MG/0.5ML NEB INH SCH ×4 (01:53→19:17)
[2016-11-16] MEDS: IPRATROPIUM BROMIDE NEB SOLN 0.02% 2.5 ML VIAL INH SCH ×4 (01:53→19:17)
[2016-11-16] MEDS: HYDROCODONE/HOMATROPINE SYRUP 5MG/1.5MG 5ML UDP PO PRN ×3 (04:00→20:43)
[2016-11-16 07:22] LABS: BASO % 0.1 %; BASO ABS # 0.01 K/uL (0-0.2); COMPLETE YES; EOS % 0.3 %; HEMATOCRIT 34.5 % (37-47); IG% 0.8 %; MEAN CELL VOLUME 82.5 fL (80-100); MEAN CORPUSCULAR HEMOGLOBIN 24.6 pg (25-34); MEAN CORPUSCULAR HGB CONC 29.9 g/dl (32-36); MEAN PLATELET VOLUME 9.1 fL (7.4-10.4); MONO % 8.6 %; NEUT % 61.2 %; PLATELET COUNT 354 K/uL (130-400); RED BLOOD COUNT 4.18 M/uL (4.2-5.4); WHITE BLOOD COUNT 15.84 K/uL (4.8-10.8)
[2016-11-16] MEDS: BENZONATATE 100MG CAP PO PRN (08:47)
[2016-11-16] MEDS: DOXYCYCLINE HYCLATE 100 MG CAP PO SCH ×2 (08:48→20:44)
[2016-11-16] MEDS: RANITIDINE HCL 150 MG TAB PO SCH ×2 (08:48→20:45)
[2016-11-16] MEDS: FUROSEMIDE 20 MG TAB PO SCH (08:48)
[2016-11-16] MEDS: ROFLUMILAST 500 MCG TAB PO SCH (08:49)
[2016-11-16] MEDS: LIDODERM (LIDOCAINE) PATCH 5% TD SCH (08:49)
[2016-11-16] MEDS: NYSTATIN SUSP 500,000 U/5 ML UDC PO SCH ×4 (08:49→20:44)
[2016-11-16] MEDS: GUAIFENESIN 600 MG TABCR PO SCH ×2 (08:49→20:43)
[2016-11-16] MEDS: PANTOprazole SOD 40 MG TAB PO SCH ×2 (08:51→20:45)
[2016-11-16] MEDS: ENOXAPARIN 40 MG/0.4 ML SYR SQ SCH (08:52)
[2016-11-16] MEDS: LORAZEPAM 1 MG TAB PO PRN ×2 (09:05→20:44)
[2016-11-16] MEDS: TRAMADOL HCL 50 MG TAB PO PRN ×2 (09:06→20:43)
[2016-11-16] MEDS: POTASSIUM CHLORIDE 20 MEQ TABCR PO SCH (10:11)
--- NOTE | 2016-11-16 12:31 | Progress Note ---
Medicine Progress Note Date & Time of Visit: Nov 16, 2016 at 12:31. Subjective patient seen resting in bed, comfortable breathing continues to improve, still has cough today denies other symptoms Objective Last 8 Hrs Date Time Temp Pulse Resp B/P (MAP) Pulse Ox O2 Delivery O2 Flow Rate FiO2 11/16/16 11:14 96 Nasal Cannula 2.0 11/16/16 07:18 36.6 73 18 136/76 (96) 98 Nasal Cannula 2.0 11/16/16 07:14 93 16 99 Nasal Cannula 2.0 Physical Exam: General- oriented x 3, not in distress, speaks in sentences with no effort Neck- no JVD Lungs- clear BS bilaterally, no wheezing, no rales mild tenderness left posterior lower rib region Heart- regular rhythm; no murmur, normal rate Abdomen- normal bowel sounds, soft, nontender Extremities- no pretibial edema, no calf tenderness Neuro- alert, oriented x 3; no gross deficits Skin- warm & dry Laboratory Results: Last 24 Hours Test 11/16/16 06:55 White Blood Count 15.84 K/uL Red Blood Count 4.18 M/uL Hemoglobin 10.3 g/dL Hematocrit 34.5 % Mean Corpuscular Volume 82.5 fL Mean Corpuscular Hemoglobin 24.6 pg Mean Corpuscular Hemoglobin Concent 29.9 g/dl Platelet Count 354 K/uL Mean Platelet Volume 9.1 fL Neutrophils (%) (Auto) 61.2 % Lymphocytes (%) (Auto) 29.0 % Monocytes (%) (Auto) 8.6 % Eosinophils (%) (Auto) 0.3 % Basophils (%) (Auto) 0.1 % Neutrophils # (Auto) 9.69 K/uL Lymphocytes # (Auto) 4.60 K/uL Monocytes # (Auto) 1.37 K/uL Eosinophils # (Auto) 0.04 K/uL Basophils # (Auto) 0.01 K/uL RDW Standard Deviation 47.6 fL RDW Coefficient of Variation 15.7 % Immature Granulocyte % (Auto) 0.8 % Immature Granulocyte # (Auto) 0.13 K/uL Assessment & Plan COPD Exacerbation secondary to Acute Bronchitis - history of chronic cough history of EDAC, ELÍAS - on PRN o2 via nasal cannula at home - CXR: no obvious infiltrate - on Doxycycline, Prednisone 40mg daily, Nebs q6 CPAP - continues to improve - Pulm consulted, appreciate the input Left Rib fracture - pain improving - monitor Hypertension, stable. Hypokalemia secondary to diuretic therapy resolved Past tobacco/alcohol abuse. Chronic anemia, hemoglobin baseline. DVT prophylaxis: Lovenox Full Code as per patient Disposition: anticipate d/c home when medically stable, cleared by Pulmonary Current Inpatient Medications: Current Inpatient Medications Medications (Trade) Dose Ordered Sig/Edis Route Start Time Stop Time Status Last Admin Dose Admin Benzonatate (Tessalon Perles Cap) 100 mg Q8H PRN PO 11/13/16 01:00 12/13/16 00:59 11/16/16 08:47 100 MG Guaifenesin (Mucinex Contr Rel Tab) 600 mg Q12 PO 11/13/16 21:00 12/13/16 20:59 11/16/16 08:49 600 MG Enoxaparin Sodium (Lovenox Inj) 30 mg Q24H SQ 11/13/16 09:00 12/13/16 08:59 11/16/16 08:52 30 MG Acetaminophen (Tylenol Tab) 650 mg Q4H PRN PO 11/13/16 01:30 12/13/16 01:29 11/13/16 20:43 650 MG Doxycycline Hyclate (Vibramycin Cap) 100 mg BID PO 11/13/16 09:00 11/20/16 08:59 11/16/16 08:48 100 MG Atorvastatin Calcium (Lipitor Tab) 10 mg HS PO 11/13/16 21:00 12/13/16 20:59 11/15/16 21:15 10 MG Lorazepam (Ativan Tab) 1 mg TID PRN PO 11/13/16 01:30 12/13/16 01:29 11/16/16 09:05 1 MG Pantoprazole Sodium (Protonix Tab) 40 mg BID PO 11/13/16 09:00 12/13/16 08:59 11/16/16 08:51 40 MG Ranitidine HCl (zANTac TAB) 150 mg BID PO 11/13/16 09:00 12/13/16 08:59 11/16/16 08:48 150 MG Roflumilast (Daliresp Tab) 500 mcg QAM PO 11/13/16 09:00 12/13/16 08:59 11/16/16 08:49 500 MCG Tramadol HCl (Ultram Tab) 50 mg Q6H PRN PO 11/13/16 01:30 12/13/16 01:29 11/16/16 09:06 50 MG Prednisone (PredniSONE TAB) 40 mg DAILY PO 11/13/16 09:00 11/18/16 08:59 11/16/16 08:51 40 MG Ipratropium [place] (Atrovent 0.02% 0.5MG/2.5ML Neb) 0.5 mg Q6R INH 11/13/16 03:00 12/13/16 02:59 11/16/16 07:12 0.5 MG Levalbuterol (Xopenex 1.25MG/ 0.5ML Neb) 1.25 mg Q6R INH 11/13/16 03:00 12/13/16 02:59 11/16/16 07:12 1.25 MG Ipratropium [place] (Atrovent 0.02% 0.5MG/2.5ML Neb) 0.5 mg Q4H PRN INH 11/13/16 01:45 12/13/16 01:44 Levalbuterol (Xopenex 1.25MG/ 0.5ML Neb) 1.25 mg Q4H PRN INH 11/13/16 01:45 12/13/16 01:44 Furosemide (Lasix Tab) 20 mg QAM PO 11/14/16 09:00 12/14/16 08:59 11/16/16 08:48 20 MG Potassium Chloride (Klor-Con Tab) 20 meq QAM PO 11/14/16 09:00 12/14/16 08:59 11/16/16 10:11 20 MEQ Sertraline HCl (Zoloft Tab) 100 mg HS PO 11/14/16 21:00 12/13/16 08:59 11/15/16 20:26 100 MG Nystatin (Mycostatin Susp) 4 ml QID PO 11/14/16 13:00 11/24/16 12:59 11/16/16 08:49 4 ML Lidocaine (Lidoderm Patch 5%) 1 patch QAM TD 11/15/16 09:00 12/15/16 08:59 11/16/16 08:49 1 PATCH Miscellaneous (Remove Lidoderm Patch) 1 ea DAILY@21 N/A 11/14/16 23:00 12/14/16 22:59 11/15/16 20:26 1 EA Hydrocodone Bit/ Homatropine Methylb (Hycodan Syrup) 5 ml Q6 PRN PO 11/15/16 12:00 11/29/16 11:59 11/16/16 04:00 5 ML
[2016-11-16] MEDS: ATORVASTATIN 10 MG TAB PO SCH (20:44)
[2016-11-16] MEDS: SERTRALINE HCL 100 MG TAB PO SCH (20:44)
[2016-11-17] VITALS (11 sets, daily range): BP systolic 103–125; BP diastolic 57–71; PULSE 65–110; TEMP 36.6–37.1; O2SAT 93–98
[2016-11-17] MEDS: LEVALBUTEROL 1.25MG/0.5ML NEB INH SCH ×4 (01:52→19:34)
[2016-11-17] MEDS: IPRATROPIUM BROMIDE NEB SOLN 0.02% 2.5 ML VIAL INH SCH ×4 (01:52→19:34)
[2016-11-17] MEDS: HYDROCODONE/HOMATROPINE SYRUP 5MG/1.5MG 5ML UDP PO PRN ×2 (08:15→20:25)
[2016-11-17] MEDS: NYSTATIN SUSP 500,000 U/5 ML UDC PO SCH ×4 (08:15→20:25)
[2016-11-17] MEDS: RANITIDINE HCL 150 MG TAB PO SCH ×2 (08:15→20:27)
[2016-11-17] MEDS: LORAZEPAM 1 MG TAB PO PRN ×2 (08:15→20:25)
[2016-11-17] MEDS: TRAMADOL HCL 50 MG TAB PO PRN ×2 (08:15→20:25)
[2016-11-17] MEDS: PANTOprazole SOD 40 MG TAB PO SCH ×2 (08:15→20:27)
[2016-11-17] MEDS: ROFLUMILAST 500 MCG TAB PO SCH (08:16)
[2016-11-17] MEDS: POTASSIUM CHLORIDE 20 MEQ TABCR PO SCH (08:16)
[2016-11-17] MEDS: DOXYCYCLINE HYCLATE 100 MG CAP PO SCH ×2 (08:16→20:26)
[2016-11-17] MEDS: FUROSEMIDE 20 MG TAB PO SCH (08:16)
[2016-11-17] MEDS: ENOXAPARIN 40 MG/0.4 ML SYR SQ SCH (08:17)
[2016-11-17] MEDS: GUAIFENESIN 600 MG TABCR PO SCH ×2 (08:17→20:26)
[2016-11-17] MEDS: LIDODERM (LIDOCAINE) PATCH 5% TD SCH (08:17)
[2016-11-17] MEDS ORDERED: NURSING VERBAL MED ORDER ONE (10:45)
[2016-11-17] MEDS: ONDANSETRON INJ 2 MG/ML 2 ML VIAL IV PRN (11:00)
--- NOTE | 2016-11-17 11:47 | PROGRESS NOTE ---
DATE: 11/17/2016 DATE: 11/17/2016 PROBLEM LIST: Includes: 1. Chronic cough. 2. Excessive dynamic airway collapse. 3. Chronic obstructive pulmonary disease. 4. Left 7th rib fractures. SUBJECTIVE: The patient reports that her breathing continues to improve, the cough is lessening, the pain is improved as well. She states that overall she is getting close to being back to her normal level. She also reports that she has been trying to use her CPAP. She has her mask from home and feels that this is helping somewhat. She is using it for about an hour or so at a time and then will take it off for a while. She has not had any other concerns or problems. No fever, chills, no sweats. She is complaining of a little bit of nausea today. No vomiting or diarrhea. No swelling in her extremities. She does report that she was up walking around in the price last night x1. OBJECTIVE: GENERAL: The patient is a 66-year-old female sitting in bed, does not appear in any acute distress, no respiratory distress. She is able to complete sentences without difficulty. She is alert and oriented x3. Mood is good. Affect is good. VITAL SIGNS: Temp 36.6, pulse 71, respirations 18, blood pressure is 118/71, pulse ox ranging from 93-98% on 2 liters. HEAD, EYES, EARS, NOSE, AND THROAT: Normocephalic, atraumatic. Pupils are equal, round and reactive to light and accommodation. Does not appear icteric. NECK: Supple. There is no mass. No adenopathy. No bruit. CHEST: The patient has diminished breath sounds bilaterally. She did have faint expiratory wheeze on the right side which cleared with coughing. Following that did not really notice any wheeze. CARDIOVASCULAR: Regular rate and rhythm. No murmurs, gallops or rubs. ABDOMEN: Bowel sounds are present. Abdomen soft, nontender. No guarding, rigidity or organomegaly. EXTREMITIES: No erythema or edema. NEUROLOGIC: Cranial nerves II through XII are intact. No focal deficit noted. LABORATORY DATA: Shows white count of 15,000, H&H 10.3 and 34.5, platelet count 354,000. No new imaging data. IMPRESSION: This is a 66-year-old female with multiple respiratory problems. Chronic cough is improving. She still has some degree of cough but it is much better. 1. Chronic obstructive pulmonary disease with exacerbation. She did have some wheezing earlier in the week when I saw her, that has resolved at this time and feel that she is doing well. 2. Excessive dynamic airway collapse. The patient reports that she is using her CPAP therapy periodically through the day and at night. I did encourage her to continue using this. Continue to encourage her to try to extend the amount of time that she uses it so that she becomes more tolerant of it. PLAN: At this point, continue meds as they are. I did discuss with the patient possibly being discharged home tomorrow. She is agreeable to that. I did discuss this with Dr. Davis the hospitalist as well. Upon discharge would recommend a slow prednisone taper starting at 40 mg and then decreasing by 5 mg every 2 days. We will follow her up in approximately 10 days to 2 weeks. I did contact the office and she has an appointment in our office on November 28 at 3:00 p.m. She is to contact the office prior to this if there are any questions or problem. We will be signing off on this patient at this time. If there are any questions or needs, please contact us. Patient was seen and examined and the plan above was agreed upon. AMARA
[2016-11-17] MEDS ORDERED: MAGNESIUM HYDROXIDE SUSP 30 ML UDC PO ONE (19:14)
[2016-11-17] MEDS ORDERED: MAGNESIUM HYDROXIDE SUSP 30 ML UDC PO PRN (19:15)
--- NOTE | 2016-11-17 19:20 | Progress Note ---
Medicine Progress Note Date & Time of Visit: Nov 17, 2016 at 19:16. Subjective patient seen resting in bed, comfortable breathing continues to improve has occasional cough no BMs x 2 days, stomach feels "queasy", mild nausea but no pain no other symptoms Objective Last 8 Hrs Date Time Temp Pulse Resp B/P (MAP) Pulse Ox O2 Delivery O2 Flow Rate FiO2 11/17/16 16:00 95 Nasal Cannula 2.0 11/17/16 15:11 37.1 84 18 103/57 (72) 95 Nasal Cannula 2.0 11/17/16 14:20 88 18 98 Nasal Cannula 2.0 Physical Exam: General- oriented x 3, not in distress, speaks in sentences with no effort Neck- no JVD Lungs- clear, no rales/wheezes bilaterally Heart- regular rhythm; no murmur, normal rate Abdomen- normal bowel sounds, non distended, soft, nontender Extremities- no pretibial edema, no calf tenderness Neuro- alert, oriented x 3; no gross deficits Skin- warm & dry Assessment & Plan COPD Exacerbation secondary to Acute Bronchitis - history of chronic cough history of EDAC, ELÍAS - on PRN o2 via nasal cannula at home - CXR: no obvious infiltrate - on Doxycycline, Prednisone 40mg daily, Nebs q6 CPAP, tolerating well - improving daily - Pulm consulted, appreciate the input Left Rib fracture - pain improving - monitor Constipation - PRN Milk of Mg Hypertension, stable. Hypokalemia secondary to diuretic therapy resolved Past tobacco/alcohol abuse. Chronic anemia, hemoglobin baseline. DVT prophylaxis: Lovenox Full Code as per patient Disposition: anticipate d/c home when medically stable, cleared by Pulmonary Current Inpatient Medications: Current Inpatient Medications Medications (Trade) Dose Ordered Sig/Edis Route Start Time Stop Time Status Last Admin Dose Admin Benzonatate (Tessalon Perles Cap) 100 mg Q8H PRN PO 11/13/16 01:00 12/13/16 00:59 11/16/16 08:47 100 MG Guaifenesin (Mucinex Contr Rel Tab) 600 mg Q12 PO 11/13/16 21:00 12/13/16 20:59 11/17/16 08:17 600 MG Enoxaparin Sodium (Lovenox Inj) 30 mg Q24H SQ 11/13/16 09:00 12/13/16 08:59 11/17/16 08:17 30 MG Acetaminophen (Tylenol Tab) 650 mg Q4H PRN PO 11/13/16 01:30 12/13/16 01:29 11/13/16 20:43 650 MG Doxycycline Hyclate (Vibramycin Cap) 100 mg BID PO 11/13/16 09:00 11/20/16 08:59 11/17/16 08:16 100 MG Atorvastatin Calcium (Lipitor Tab) 10 mg HS PO 11/13/16 21:00 12/13/16 20:59 11/16/16 20:44 10 MG Lorazepam (Ativan Tab) 1 mg TID PRN PO 11/13/16 01:30 12/13/16 01:29 11/17/16 08:15 1 MG Pantoprazole Sodium (Protonix Tab) 40 mg BID PO 11/13/16 09:00 12/13/16 08:59 11/17/16 08:15 40 MG Ranitidine HCl (zANTac TAB) 150 mg BID PO 11/13/16 09:00 12/13/16 08:59 11/17/16 08:15 150 MG Roflumilast (Daliresp Tab) 500 mcg QAM PO 11/13/16 09:00 12/13/16 08:59 11/17/16 08:16 500 MCG Tramadol HCl (Ultram Tab) 50 mg Q6H PRN PO 11/13/16 01:30 12/13/16 01:29 11/17/16 08:15 50 MG Prednisone (PredniSONE TAB) 40 mg DAILY PO 11/13/16 09:00 11/18/16 08:59 11/17/16 08:15 40 MG Ipratropium [place] (Atrovent 0.02% 0.5MG/2.5ML Neb) 0.5 mg Q6R INH 11/13/16 03:00 12/13/16 02:59 11/17/16 14:18 0.5 MG Levalbuterol (Xopenex 1.25MG/ 0.5ML Neb) 1.25 mg Q6R INH 11/13/16 03:00 12/13/16 02:59 11/17/16 14:18 1.25 MG Ipratropium [place] (Atrovent 0.02% 0.5MG/2.5ML Neb) 0.5 mg Q4H PRN INH 11/13/16 01:45 12/13/16 01:44 Levalbuterol (Xopenex 1.25MG/ 0.5ML Neb) 1.25 mg Q4H PRN INH 11/13/16 01:45 12/13/16 01:44 Furosemide (Lasix Tab) 20 mg QAM PO 11/14/16 09:00 12/14/16 08:59 11/17/16 08:16 20 MG Potassium Chloride (Klor-Con Tab) 20 meq QAM PO 11/14/16 09:00 12/14/16 08:59 11/17/16 08:16 20 MEQ Sertraline HCl (Zoloft Tab) 100 mg HS PO 11/14/16 21:00 12/13/16 08:59 11/16/16 20:44 100 MG Nystatin (Mycostatin Susp) 4 ml QID PO 11/14/16 13:00 11/24/16 12:59 11/17/16 17:05 4 ML Lidocaine (Lidoderm Patch 5%) 1 patch QAM TD 11/15/16 09:00 12/15/16 08:59 11/17/16 08:17 1 PATCH Miscellaneous (Remove Lidoderm Patch) 1 ea DAILY@21 N/A 11/14/16 23:00 12/14/16 22:59 11/16/16 20:43 1 EA Hydrocodone Bit/ Homatropine Methylb (Hycodan Syrup) 5 ml Q6 PRN PO 11/15/16 12:00 11/29/16 11:59 11/17/16 08:15 5 ML Ondansetron HCl (Zofran Inj) 4 mg Q6H PRN IV 11/17/16 11:00 12/17/16 10:59 11/17/16 11:00 4 MG
[2016-11-17] MEDS: SERTRALINE HCL 100 MG TAB PO SCH (20:26)
[2016-11-17] MEDS: ATORVASTATIN 10 MG TAB PO SCH (20:26)
[2016-11-18] VITALS (10 sets, daily range): BP systolic 110–115; BP diastolic 68–72; PULSE 73–87; TEMP 36.4–36.8; O2SAT 92–98
[2016-11-18] MEDS: LEVALBUTEROL 1.25MG/0.5ML NEB INH SCH ×4 (02:01→19:35)
[2016-11-18] MEDS: IPRATROPIUM BROMIDE NEB SOLN 0.02% 2.5 ML VIAL INH SCH ×4 (02:01→19:35)
[2016-11-18] MEDS: HYDROCODONE/HOMATROPINE SYRUP 5MG/1.5MG 5ML UDP PO PRN ×2 (02:43→21:00)
[2016-11-18] MEDS: ONDANSETRON INJ 2 MG/ML 2 ML VIAL IV PRN ×2 (02:43→12:28)
[2016-11-18] MEDS: LORAZEPAM 1 MG TAB PO PRN ×2 (08:18→21:00)
[2016-11-18] MEDS: TRAMADOL HCL 50 MG TAB PO PRN ×2 (08:18→21:00)
[2016-11-18] MEDS: BENZONATATE 100MG CAP PO PRN ×2 (08:18→16:23)
[2016-11-18] MEDS: ROFLUMILAST 500 MCG TAB PO SCH (08:19)
[2016-11-18] MEDS: POTASSIUM CHLORIDE 20 MEQ TABCR PO SCH (08:19)
[2016-11-18] MEDS: FUROSEMIDE 20 MG TAB PO SCH (08:19)
[2016-11-18] MEDS: GUAIFENESIN 600 MG TABCR PO SCH ×2 (08:20→20:54)
[2016-11-18] MEDS: DOXYCYCLINE HYCLATE 100 MG CAP PO SCH ×2 (08:20→20:55)
[2016-11-18] MEDS: PANTOprazole SOD 40 MG TAB PO SCH ×2 (08:20→20:54)
[2016-11-18] MEDS: RANITIDINE HCL 150 MG TAB PO SCH ×2 (08:20→20:55)
[2016-11-18] MEDS: NYSTATIN SUSP 500,000 U/5 ML UDC PO SCH ×4 (08:20→20:56)
[2016-11-18] MEDS: LIDODERM (LIDOCAINE) PATCH 5% TD SCH (09:00)
[2016-11-18] MEDS: ENOXAPARIN 30 MG/0.3 ML SYR SQ SCH (09:06)
[2016-11-18] MEDS ORDERED: DOCUSATE SODIUM/SENNA 50/8.6MG TAB PO ONE (15:16)
--- NOTE | 2016-11-18 15:24 | Progress Note ---
Medicine Progress Note Date & Time of Visit: Nov 18, 2016 at 15:21. Subjective seen resting in bed,not in distress states her abdomen feels "queasy", no BMs x 3 days, (+) flatus, no nausea no dyspnea, cough improving no other symptoms Objective Last 8 Hrs Date Time Temp Pulse Resp B/P (MAP) Pulse Ox O2 Delivery O2 Flow Rate FiO2 11/18/16 14:53 36.4 87 18 110/72 (85) 98 Nasal Cannula 2.0 11/18/16 14:06 78 16 98 Nasal Cannula 2.0 11/18/16 07:40 Nasal Cannula 2.0 11/18/16 07:31 36.8 73 18 115/70 (85) 98 Nasal Cannula 2.0 Physical Exam: General- oriented x 3, not in distress, speaks in sentences with no effort Neck- no JVD Lungs- clear breath sounds bilaterally, no rales/wheezes Heart- regular rhythm; no murmur, normal rate Abdomen- normal bowel sounds, non distended, soft, nontender Extremities- no pretibial edema, no calf tenderness Neuro- alert, oriented x 3; no gross deficits Skin- warm & dry Assessment & Plan COPD Exacerbation secondary to Acute Bronchitis - history of chronic cough history of EDAC, ELÍAS - on PRN o2 via nasal cannula at home - CXR: no obvious infiltrate - on Doxycycline, Prednisone 40mg daily, Nebs q6 CPAP, tolerating well - improving - Pulm consulted, appreciate the input Constipation - add Senokot S PRN Lactulose - monitor Left Rib fracture - pain improving - monitor Hypertension -stable. Hypokalemia secondary to diuretic therapy - resolved Past tobacco/alcohol abuse. Chronic anemia, hemoglobin baseline. DVT prophylaxis: Lovenox Full Code as per patient Disposition: anticipate d/c home when medically stable, cleared by Pulmonary Current Inpatient Medications: Current Inpatient Medications Medications (Trade) Dose Ordered Sig/Edis Route Start Time Stop Time Status Last Admin Dose Admin Benzonatate (Tessalon Perles Cap) 100 mg Q8H PRN PO 11/13/16 01:00 12/13/16 00:59 11/18/16 08:18 100 MG Guaifenesin (Mucinex Contr Rel Tab) 600 mg Q12 PO 11/13/16 21:00 12/13/16 20:59 11/18/16 08:20 600 MG Acetaminophen (Tylenol Tab) 650 mg Q4H PRN PO 11/13/16 01:30 12/13/16 01:29 11/13/16 20:43 650 MG Doxycycline Hyclate (Vibramycin Cap) 100 mg BID PO 11/13/16 09:00 11/20/16 08:59 11/18/16 08:20 100 MG Atorvastatin Calcium (Lipitor Tab) 10 mg HS PO 11/13/16 21:00 12/13/16 20:59 11/17/16 20:26 10 MG Lorazepam (Ativan Tab) 1 mg TID PRN PO 11/13/16 01:30 12/13/16 01:29 11/18/16 08:18 1 MG Pantoprazole Sodium (Protonix Tab) 40 mg BID PO 11/13/16 09:00 12/13/16 08:59 11/18/16 08:20 40 MG Ranitidine HCl (zANTac TAB) 150 mg BID PO 11/13/16 09:00 12/13/16 08:59 11/18/16 08:20 150 MG Roflumilast (Daliresp Tab) 500 mcg QAM PO 11/13/16 09:00 12/13/16 08:59 11/18/16 08:19 500 MCG Tramadol HCl (Ultram Tab) 50 mg Q6H PRN PO 11/13/16 01:30 12/13/16 01:29 11/18/16 08:18 50 MG Ipratropium [place] (Atrovent 0.02% 0.5MG/2.5ML Neb) 0.5 mg Q6R INH 11/13/16 03:00 12/13/16 02:59 11/18/16 14:06 0.5 MG Levalbuterol (Xopenex 1.25MG/ 0.5ML Neb) 1.25 mg Q6R INH 11/13/16 03:00 12/13/16 02:59 11/18/16 14:06 1.25 MG Ipratropium [place] (Atrovent 0.02% 0.5MG/2.5ML Neb) 0.5 mg Q4H PRN INH 11/13/16 01:45 12/13/16 01:44 Levalbuterol (Xopenex 1.25MG/ 0.5ML Neb) 1.25 mg Q4H PRN INH 11/13/16 01:45 12/13/16 01:44 Furosemide (Lasix Tab) 20 mg QAM PO 11/14/16 09:00 12/14/16 08:59 11/18/16 08:19 20 MG Potassium Chloride (Klor-Con Tab) 20 meq QAM PO 11/14/16 09:00 12/14/16 08:59 11/18/16 08:19 20 MEQ Sertraline HCl (Zoloft Tab) 100 mg HS PO 11/14/16 21:00 12/13/16 08:59 11/17/16 20:26 100 MG Nystatin (Mycostatin Susp) 4 ml QID PO 11/14/16 13:00 11/24/16 12:59 11/18/16 08:20 4 ML Lidocaine (Lidoderm Patch 5%) 1 patch QAM TD 11/15/16 09:00 12/15/16 08:59 11/17/16 08:17 1 PATCH Miscellaneous (Remove Lidoderm Patch) 1 ea DAILY@21 N/A 11/14/16 23:00 12/14/16 22:59 11/17/16 20:25 1 EA Hydrocodone Bit/ Homatropine Methylb (Hycodan Syrup) 5 ml Q6 PRN PO 11/15/16 12:00 11/29/16 11:59 11/18/16 02:43 5 ML Ondansetron HCl (Zofran Inj) 4 mg Q6H PRN IV 11/17/16 11:00 12/17/16 10:59 11/18/16 12:28 4 MG Magnesium Hydroxide (Milk Of Magnesia Susp) 30 ml Q6H PRN PO 11/17/16 19:15 12/17/16 19:14 Enoxaparin Sodium (Lovenox Inj) 30 mg Q24H SQ 11/18/16 09:00 12/13/16 08:59 11/18/16 09:06 30 MG
[2016-11-18] MEDS ORDERED: LACTULOSE SYRUP 20 GM/30 ML UDC PO PRN (15:30)
[2016-11-18] MEDS ORDERED: LACTULOSE SYRUP 30 GM/45 ML UDP PO PRN (16:15)
[2016-11-18] MEDS: SERTRALINE HCL 100 MG TAB PO SCH (20:55)
[2016-11-18] MEDS: ATORVASTATIN 10 MG TAB PO SCH (20:56)
[2016-11-19] VITALS (7 sets, daily range): BP systolic 121; BP diastolic 73; PULSE 72–102; TEMP 36.8; O2SAT 94–99
[2016-11-19] MEDS: LEVALBUTEROL 1.25MG/0.5ML NEB INH SCH ×3 (01:59→14:17)
[2016-11-19] MEDS: IPRATROPIUM BROMIDE NEB SOLN 0.02% 2.5 ML VIAL INH SCH ×3 (01:59→14:17)
[2016-11-19] MEDS: ONDANSETRON INJ 2 MG/ML 2 ML VIAL IV PRN ×2 (02:39→09:58)
[2016-11-19 05:57] LABS: BASO % 0.1 %; BASO ABS # 0.01 K/uL (0-0.2); COMPLETE YES; HEMATOCRIT 33.9 % (37-47); IG% 0.9 %; LYMPH % 8.7 %; LYMPH ABS # 1.33 K/uL (1.2-3.4); MEAN CELL VOLUME 81.3 fL (80-100); MEAN CORPUSCULAR HEMOGLOBIN 25.4 pg (25-34); MEAN CORPUSCULAR HGB CONC 31.3 g/dl (32-36); MEAN PLATELET VOLUME 8.9 fL (7.4-10.4); MONO % 6.2 %; NEUT % 84.1 %; PLATELET COUNT 324 K/uL (130-400); RED BLOOD COUNT 4.17 M/uL (4.2-5.4); WHITE BLOOD COUNT 15.21 K/uL (4.8-10.8)
[2016-11-19] MEDS ORDERED: DOCUSATE SODIUM/SENNA 50/8.6MG TAB PO SCH (09:00)
[2016-11-19] MEDS: LIDODERM (LIDOCAINE) PATCH 5% TD SCH (09:00)
[2016-11-19] MEDS: HYDROCODONE/HOMATROPINE SYRUP 5MG/1.5MG 5ML UDP PO PRN (09:53)
[2016-11-19] MEDS: ROFLUMILAST 500 MCG TAB PO SCH (09:54)
[2016-11-19] MEDS: LORAZEPAM 1 MG TAB PO PRN (09:54)
[2016-11-19] MEDS: TRAMADOL HCL 50 MG TAB PO PRN (09:54)
[2016-11-19] MEDS: FUROSEMIDE 20 MG TAB PO SCH (09:55)
[2016-11-19] MEDS: POTASSIUM CHLORIDE 20 MEQ TABCR PO SCH (09:55)
[2016-11-19] MEDS: NYSTATIN SUSP 500,000 U/5 ML UDC PO SCH ×2 (09:56→13:00)
[2016-11-19] MEDS: GUAIFENESIN 600 MG TABCR PO SCH (09:56)
[2016-11-19] MEDS: DOXYCYCLINE HYCLATE 100 MG CAP PO SCH (09:57)
[2016-11-19] MEDS: RANITIDINE HCL 150 MG TAB PO SCH (09:57)
[2016-11-19] MEDS: PANTOprazole SOD 40 MG TAB PO SCH (09:57)
[2016-11-19] MEDS: ENOXAPARIN 30 MG/0.3 ML SYR SQ SCH (09:57)
--- NOTE | 2016-11-19 13:52 | Progress Note ---
Medicine Progress Note Date & Time of Visit: Nov 19, 2016 at 13:49. Subjective patient seen resting in bed, comfortable states she feels better overall no dyspnea, cough improving (+) BMs, no abdominal pain states she is ready and would like to be discharged today Objective Last 8 Hrs Date Time Temp Pulse Resp B/P (MAP) Pulse Ox O2 Delivery O2 Flow Rate FiO2 11/19/16 08:00 99 Nasal Cannula 2.0 CPAP 11/19/16 07:19 36.8 76 18 121/73 (89) 99 Nasal Cannula 2.0 11/19/16 07:17 72 16 98 Nasal Cannula 2.0 Physical Exam: General- oriented x 3, not in distress, speaks in sentences with no effort Lungs- clear breath sounds bilaterally, no rales/wheezes Heart- regular rhythm; no murmur, normal rate Abdomen- normal bowel sounds, non distended, soft, nontender Extremities- no pretibial edema, no calf tenderness Neuro- alert, oriented x 3; no gross deficits Skin- warm & dry Laboratory Results: Last 24 Hours Test 11/19/16 05:22 White Blood Count 15.21 K/uL Red Blood Count 4.17 M/uL Hemoglobin 10.6 g/dL Hematocrit 33.9 % Mean Corpuscular Volume 81.3 fL Mean Corpuscular Hemoglobin 25.4 pg Mean Corpuscular Hemoglobin Concent 31.3 g/dl Platelet Count 324 K/uL Mean Platelet Volume 8.9 fL Neutrophils (%) (Auto) 84.1 % Lymphocytes (%) (Auto) 8.7 % Monocytes (%) (Auto) 6.2 % Eosinophils (%) (Auto) 0.0 % Basophils (%) (Auto) 0.1 % Neutrophils # (Auto) 12.80 K/uL Lymphocytes # (Auto) 1.33 K/uL Monocytes # (Auto) 0.94 K/uL Eosinophils # (Auto) 0.00 K/uL Basophils # (Auto) 0.01 K/uL RDW Standard Deviation 45.6 fL RDW Coefficient of Variation 15.3 % Immature Granulocyte % (Auto) 0.9 % Immature Granulocyte # (Auto) 0.13 K/uL Assessment & Plan COPD Exacerbation secondary to Acute Bronchitis - history of chronic cough history of EDAC, ELÍAS - on PRN o2 via nasal cannula at home - CXR: no obvious infiltrate - on Doxycycline, Prednisone 40mg daily, Nebs q6 CPAP, tolerating well - improving - d/c plan: Doxycycline 100mg BID x 3 more doses to complete 7 days Prednisone taper starting at 40mg po daily Hycodan PRN continue usual bronchodilators at home - Pulm consulted, appreciate the input Constipation - resolved Left Rib fracture - pain resolved Hypertension -stable. Hypokalemia secondary to diuretic therapy - resolved Past tobacco/alcohol abuse. Chronic anemia, hemoglobin baseline. DVT prophylaxis: Lovenox Full Code as per patient Disposition d/c home today ff up with PCP next week ff up with Pulmonary in 2 weeks Current Inpatient Medications: Current Inpatient Medications Medications (Trade) Dose Ordered Sig/Edis Route Start Time Stop Time Status Last Admin Dose Admin Benzonatate (Tessalon Perles Cap) 100 mg Q8H PRN PO 11/13/16 01:00 12/13/16 00:59 11/18/16 16:23 100 MG Guaifenesin (Mucinex Contr Rel Tab) 600 mg Q12 PO 11/13/16 21:00 12/13/16 20:59 11/19/16 09:56 600 MG Acetaminophen (Tylenol Tab) 650 mg Q4H PRN PO 11/13/16 01:30 12/13/16 01:29 11/13/16 20:43 650 MG Doxycycline Hyclate (Vibramycin Cap) 100 mg BID PO 11/13/16 09:00 11/20/16 08:59 11/19/16 09:57 100 MG Atorvastatin Calcium (Lipitor Tab) 10 mg HS PO 11/13/16 21:00 12/13/16 20:59 11/18/16 20:56 10 MG Lorazepam (Ativan Tab) 1 mg TID PRN PO 11/13/16 01:30 12/13/16 01:29 11/19/16 09:54 1 MG Pantoprazole Sodium (Protonix Tab) 40 mg BID PO 11/13/16 09:00 12/13/16 08:59 11/19/16 09:57 40 MG Ranitidine HCl (zANTac TAB) 150 mg BID PO 11/13/16 09:00 12/13/16 08:59 11/19/16 09:57 150 MG Roflumilast (Daliresp Tab) 500 mcg QAM PO 11/13/16 09:00 12/13/16 08:59 11/19/16 09:54 500 MCG Tramadol HCl (Ultram Tab) 50 mg Q6H PRN PO 11/13/16 01:30 12/13/16 01:29 11/19/16 09:54 50 MG Ipratropium [place] (Atrovent 0.02% 0.5MG/2.5ML Neb) 0.5 mg Q6R INH 11/13/16 03:00 12/13/16 02:59 11/19/16 07:14 0.5 MG Levalbuterol (Xopenex 1.25MG/ 0.5ML Neb) 1.25 mg Q6R INH 11/13/16 03:00 12/13/16 02:59 11/19/16 07:14 1.25 MG Ipratropium [place] (Atrovent 0.02% 0.5MG/2.5ML Neb) 0.5 mg Q4H PRN INH 11/13/16 01:45 12/13/16 01:44 Levalbuterol (Xopenex 1.25MG/ 0.5ML Neb) 1.25 mg Q4H PRN INH 11/13/16 01:45 12/13/16 01:44 Furosemide (Lasix Tab) 20 mg QAM PO 11/14/16 09:00 12/14/16 08:59 11/19/16 09:55 20 MG Potassium Chloride (Klor-Con Tab) 20 meq QAM PO 11/14/16 09:00 12/14/16 08:59 11/19/16 09:55 20 MEQ Sertraline HCl (Zoloft Tab) 100 mg HS PO 11/14/16 21:00 12/13/16 08:59 11/18/16 20:55 100 MG Nystatin (Mycostatin Susp) 4 ml QID PO 11/14/16 13:00 11/24/16 12:59 11/19/16 13:00 4 ML Lidocaine (Lidoderm Patch 5%) 1 patch QAM TD 11/15/16 09:00 12/15/16 08:59 11/17/16 08:17 1 PATCH Miscellaneous (Remove Lidoderm Patch) 1 ea DAILY@21 N/A 11/14/16 23:00 12/14/16 22:59 11/17/16 20:25 1 EA Hydrocodone Bit/ Homatropine Methylb (Hycodan Syrup) 5 ml Q6 PRN PO 11/15/16 12:00 11/29/16 11:59 11/19/16 09:53 5 ML Ondansetron HCl (Zofran Inj) 4 mg Q6H PRN IV 11/17/16 11:00 12/17/16 10:59 11/19/16 09:58 4 MG Magnesium Hydroxide (Milk Of Magnesia Susp) 30 ml Q6H PRN PO 11/17/16 19:15 12/17/16 19:14 Enoxaparin Sodium (Lovenox Inj) 30 mg Q24H SQ 11/18/16 09:00 12/13/16 08:59 11/19/16 09:57 30 MG Senna/Docusate Sodium (Senokot S Tab) 1 tab QAM PO 11/19/16 09:00 12/19/16 08:59 11/19/16 09:57 1 TAB Prednisone (PredniSONE TAB) 40 mg DAILY PO 11/19/16 09:00 12/19/16 08:59 11/19/16 09:56 40 MG Lactulose (Chronulac Syrup) 30 gm TID PRN PO 11/18/16 16:15 12/18/16 16:14 11/18/16 19:49 30 GM
[2016-11-19] MEDS ORDERED: PRED10TA PO (14:00)
[2016-11-19] MEDS ORDERED: SENN8.6T7 PO (14:00)
[2016-11-19] MEDS ORDERED: HYCUDL5 PO (14:00)
[2016-11-19] MEDS ORDERED: DXY100 PO (14:00)
--- NOTE | 2016-11-19 14:05 | Discharge Instructions ---
Discharge Instructions Date of Service Nov 19, 2016. Admission Reason for Admission: Copd Exacerbation Discharge Discharge Diagnosis / Problem: COPD EXACERBATION Discharge Goals Goal(s): Diagnostic testing, Therapeutic intervention Activity Recommendations Activity Limitations: as noted below (NO HEAVE EXERTION UNTIL RE-EVALUATED BY PRIMARY CARE PHYSICIAN) . Instructions / Follow-Up Instructions / Follow-Up PLEASE REVIEW YOUR NEW MEDICATION LIST AND FOLLOW INSTRUCTIONS CAREFULLY. CALL PRIMARY CARE PHYSICIAN OR RETURN TO ER IMMEDIATELY IF WITH RECURRENCE OR WORSENING OF SYMPTOMS. FOLLOW UP WITH DR. GOMEZ ON Sunday11/22/16 AT 11:05AM. FOLLOW WITH HEART COORDINATOR IN 2 WEEKS. Current Hospital Diet Patient's current hospital diet: AHA Diet (Heart Healthy) Discharge Diet Recommended Diet: AHA Diet (Heart Healthy) Procedures Procedures Performed: CHEST XRAY, MRI SPINE, RIB XRAY Pending Studies Studies pending at discharge: no Medical Emergencies . Who to Call and When: Medical Emergencies: If at any time you feel your situation is an emergency, please call 911 immediately. . Non-Emergent Contact Non-Emergency issues call your: Primary Care Provider, Mirror Painter Call Non-Emergent contact if: you have a fever, your pain is not controlled, your pain is worsening, you have any medication questions . . "Provider Documentation" section prepared by Bryan Davis. . VTE Core Measure Inpt VTE Proph given/why not?: Unfractionated heparin SQ
--- NOTE | 2016-11-19 14:09 | Discharge Summary ---
Discharge Summary Date of Service Nov 19, 2016. Discharge Summary Admission Date: Nov 13, 2016 at 00:47 Discharge Date: Nov 19, 2016 Discharge Disposition: Home Principal Diagnosis: COPD Exacerbation secondary to Acute Bronchitis Secondary Diagnoses/Problems: Please refer to hospital course below. Procedures: CHEST ONE VIEW PORTABLE CLINICAL HISTORY: 66 years-old Female presenting with SOB COUGH. TECHNIQUE: Portable upright AP view of the chest was obtained. COMPARISON: 08/06/2016. FINDINGS: Cardiomediastinal silhouette normal. Lungs hyperinflated. Lungs and pleural spaces clear. Osseous structures normal. Upper abdomen normal. IMPRESSION: 1. Hyperinflation. Otherwise no evidence of acute cardiopulmonary disease. MRI OF THE THORACIC SPINE WITHOUT IV CONTRAST CLINICAL HISTORY: Thoracic back pain. COMPARISON STUDY: CT scan of the thorax dated 08/16/2016. TECHNIQUE: MRI of the thoracic spine is performed utilizing various T1 and T2-weighted sequences in the axial and sagittal planes. IV contrast was not administered for this examination. FINDINGS: Vertebral body height and alignment are maintained throughout the thoracic spine. Normal marrow signal intensity is preserved throughout the visualized bony structures. No destructive bony lesion is seen. Intervertebral disc spaces are well-maintained. Mild degenerative disc desiccation is noted. Minimal posterior disc bulge is seen eccentric to left at T1-T2. Minimal disc bulge is also seen at T3-T4, T4-T5, and T5-T6. There is no disc herniation or acquired compromise of the central canal. The spinal cord is normal in morphology and signal intensity. The conus medullaris terminates at the L1-L2 interspace. No significant neural foraminal stenosis is seen throughout the thoracic spine. The spinous processes are preserved. The paraspinous soft tissues are within normal limits. The lung parenchyma is grossly clear but not well evaluated by MRI. Degenerative change and partial bony fusion from C5 through C7 is partially imaged on the college recruiter sequence. IMPRESSION: 1. There is no disc herniation or acquired compromise of the central canal identified. 2. Minimal degenerative disc disease as above. 3. No bony abnormality is seen. 4. The spinal cord is normal in morphology and signal intensity. LEFT RIBS UNILATERAL MIN 2 VIEWS CLINICAL HISTORY: 66 years-old Female presenting with r/o fracture. TECHNIQUE: Frontal and oblique views of the left ribs were obtained. COMPARISON: Chest CT from 08/16/2016. FINDINGS: Minimal cortical buckling of the anterior left seventh rib, which could suggest nondisplaced fracture. No displaced rib fracture. Left hemithorax demonstrates clear lung and pleural space. Partially visualized posterior lumbar fusion hardware. IMPRESSION: Suspicion for nondisplaced fracture of the left anterior seventh rib. Consultations: PULMONARY DR. SANTACRUZ/[facility]ARRON Pending Studies/Follow-Up: Please refer to hospital course below. Medication Reconciliation New Medications: Prednisone Tab (Prednisone) 10 Mg Tab 10 MG PO UD, #32 TAB take 4 tabs po x 2 days, then take 3 and 1/2 tabs po x 2 days, then take 3 tabs po x 2 days, then take 2 and 1/2 tabs po x 2 days, then take 2 tabs po x 2 days, then take 1 and 1/2 tab po x 2 days, then take 1 tab po x 2 days, then take 1/2 tab po x 2 days, then STOP Doxycycline Hyclate (Doxycycline Hyclate) 100 Mg Cap 100 MG PO BID, #3 CAP 0 Refills Hydrocodone/Homatropine (Hydromet 5-1.5 mg/5Ml) 5 Ml/Cup Syrp 5 ML PO Q6 PRN for Cough for 5 Days, #50 ML 0 Refills Sennosides-Docusate Sodium (Senokot S) 1 Tab Tab 1 TAB PO QAM PRN for Constipation for 10 Days, #10 TAB 1 Refill Continued Medications: Albuterol Sulfate (Proair Respiclick) 108 Mcg/Act Aer 2 PUFFS INH Q4 PRN for SOB/Wheezing Ascorbic Acid (Vitamin C) 500 Mg Cap 500 MG PO HS Atorvastatin (Atorvastatin Calcium) 10 Mg Tab 10 MG PO HS Budesonide (Inhalation) (Pulmicort) 1 Mg/2 Ml Enedina 0.5 MG NEB BID Cholecalciferol (Vitamin D3) 1,000 Unit Tab 1 TAB PO QPM for 90 Days, TAB 3 Refills Cholecalciferol (Vitamin D3) 1,000 Inter.unit Tab 2000 UNITS PO QAM Furosemide (Furosemide) 20 Mg Tab 20 MG PO QAM Home O2 Therapy (Oxygen) Gas 2 LITERS NA CONTINOUS ALWAYS USES HS/DURING DAY PRN Ipratropium-Albuterol (Duoneb) 3 Ml Nebu 3 ML INH Q6 Lorazepam (Lorazepam) 1 Mg Tab 1 MG PO TID PRN for Anxiety Nystatin (Nystatin Suspension) 1 Ml Susp 5 ML PO QID PRN for Thrush SWISH AND SWALLOW Ondansetron Hcl (Zofran) 4 Mg Tab 4 MG PO Q8 PRN for Nausea, TAB Pantoprazole (Protonix) 40 Mg Tab 40 MG PO BID, #30 TAB Potassium Ext Rel (Klor-Con) 20 Meq Tabcr 20 MEQ PO QAM, TAB Ranitidine HCl (Ranitidine HCl) 150 Mg Tab 150 MG PO BID Roflumilast (Daliresp) 500 Mcg Tab 1 TAB PO QAM for 30 Days, #30 TAB 5 Refills Sertraline (Zoloft) 50 Mg Tab 100 MG PO DAILY, TAB Tiotropium Newman-Olodaterol (Stiolto Respimat 2.5-2.5 Mcg/Act) 1 Aer Aer 2 PUFFS INH DAILY INHALE 2 PUFFS DAILY Tramadol (Ultram) 50 Mg Tab 50 MG PO Q6H PRN for Pain, TAB Admission Information HPI (per Admitting provider): CHIEF COMPLAINT: Shortness of breath, persistent cough. HISTORY OF PRESENT ILLNESS: History obtained from patient and records. Medical history is significant for chronic respiratory failure secondary to COPD on home O2, past tobacco/alcohol abuse, hyperlipidemia, IBS per his records, ELÍAS as per records, GERD. Chronic anemia, baseline hemoglobin of 10. Recent confinement in June 2016 for COPD exacerbation. Recent bronchoscopy was July 2016, which showed diffuse segmental airway collapse on both bronchial tree. Two weeks ago, the patient was seen at a sap basis consultant's office for chronic cough follow-up. Chronic cough has decreased her overall quality of life with continued use of guaifenesin as per note. Plan was to send patient for second opinion from another sap basis consultant. This week, the patient noted worsening cough symptoms, productive of white sputum, chest pain with coughing, no fever, no chills, increasing shortness of breath. Reflux symptoms controlled as per the patient. PCP started patient on outpatient course of prednisone, no response. At the Emergency Room, the patient received Solu-Medrol, and breathing treatment for COPD exacerbation. Physical Exam (per Admitting): VITAL SIGNS: Blood pressure was noted to be 127/78 pulse rate 78, RR 22, temperature 36.8, sats 97 on 2L. GENERAL: Noted to be uncomfortable, no overt respiratory distress. Incessant coughing SKIN: Pallor. HEENT: Pale palpebral conjunctivae. Dry mucosa. NECK: No JVD. Supple. CHEST: Decreased breath sounds. Occasional wheeze. HEART: Regular rate and rhythm. ABDOMEN: Soft. EXTREMITIES: no edema, no tenderness NEUROLOGIC: No gross focality. Hospital Course COPD Exacerbation secondary to Acute Bronchitis - history of chronic cough history of EDAC, ELÍAS - on PRN o2 via nasal cannula at home - CXR: no obvious infiltrate - on Doxycycline, Prednisone 40mg daily, Nebs q6 CPAP, tolerating well - improving - d/c plan: Doxycycline 100mg BID x 3 more doses to complete 7 days Prednisone taper starting at 40mg po daily Hycodan PRN continue usual bronchodilators at home - Pulm consulted, appreciate the input Constipation - resolved Left Rib fracture - nondisplaced left anterior 7th rib - pain resolved Hypertension -stable. Hypokalemia secondary to diuretic therapy - resolved Past tobacco/alcohol abuse. Chronic anemia, hemoglobin baseline. Disposition d/c home ff up with PCP next week ff up with Pulmonary in 2 weeks Total time spent on discharge = 30 minutes This includes examination of the patient, discharge planning, medication reconciliation, and communication with other providers. Discharge Instructions Discharge Instructions Date of Service Nov 19, 2016. Admission Reason for Admission: Copd Exacerbation Discharge Discharge Diagnosis / Problem: COPD EXACERBATION Discharge Goals Goal(s): Diagnostic testing, Therapeutic intervention Activity Recommendations Activity Limitations: as noted below (NO HEAVE EXERTION UNTIL RE-EVALUATED BY PRIMARY CARE PHYSICIAN) . Instructions / Follow-Up Instructions / Follow-Up PLEASE REVIEW YOUR NEW MEDICATION LIST AND FOLLOW INSTRUCTIONS CAREFULLY. CALL PRIMARY CARE PHYSICIAN OR RETURN TO ER IMMEDIATELY IF WITH RECURRENCE OR WORSENING OF SYMPTOMS. FOLLOW UP WITH DR. GOMEZ ON Sunday11/22/16 AT 11:05AM. FOLLOW WITH TRANSACTION PROCESSOR IN 2 WEEKS. Current Hospital Diet Patient's current hospital diet: AHA Diet (Heart Healthy) Discharge Diet Recommended Diet: AHA Diet (Heart Healthy) Procedures Procedures Performed: CHEST XRAY, MRI SPINE, RIB XRAY Pending Studies Studies pending at discharge: no Medical Emergencies . Who to Call and When: Medical Emergencies: If at any time you feel your situation is an emergency, please call 911 immediately. . Non-Emergent Contact Non-Emergency issues call your: Primary Care Provider, Mop Worker Call Non-Emergent contact if: you have a fever, your pain is not controlled, your pain is worsening, you have any medication questions . . "Provider Documentation" section prepared by Bryan Davis. . VTE Core Measure Inpt VTE Proph given/why not?: Unfractionated heparin SQ
== END 2016-11-19 14:39 | disposition home health service (06) | DRG 191 ==
LOC: C.EDB 21:17 → C.MS2W 11-13 00:47 → ENRESERV 11-13 00:56
PROVIDERS: ADMIT Internal Medicine; ATTEND Internal Medicine
DX: J44.0 Chronic obstructive pulmonary disease with (acute) lower respiratory infection (principal); J96.10 Chronic respiratory failure, unspecified whether with hypoxia or hypercapnia; I50.30 Unspecified diastolic (congestive) heart failure; S22.32XA Fracture of one rib, left side, initial encounter for closed fracture; J20.9 Acute bronchitis, unspecified; J44.1 Chronic obstructive pulmonary disease with (acute) exacerbation; Z99.81 Dependence on supplemental oxygen; I11.0 Hypertensive heart disease with heart failure; E87.6 Hypokalemia; T50.1X5A Adverse effect of loop [high-ceiling] diuretics, initial encounter; D64.9 Anemia, unspecified; G47.33 Obstructive sleep apnea (adult) (pediatric); M54.9 Dorsalgia, unspecified; K59.00 Constipation, unspecified; K21.9 Gastro-esophageal reflux disease without esophagitis; E78.5 Hyperlipidemia, unspecified; X58.XXXA Exposure to other specified factors, initial encounter; F10.21 Alcohol dependence, in remission; Z87.891 Personal history of nicotine dependence; Z87.09 Personal history of other diseases of the respiratory system; Z79.51 Long term (current) use of inhaled steroids; Z79.899 Other long term (current) drug therapy; Z82.49 Family history of ischemic heart disease and other diseases of the circulatory system

== ENCOUNTER → 2017-02-23 | Outpatient (CLI) | payer OTHER ==
[~2017-02-23] MED LIST changes: +ACET-1047 PO; +ACET-1311 PO; +ALBINS/ INH; +ALEN70TA4 PO; +AMOX/K OR; +AMOX875T PO; +AZIT-57 PO; +AZIT250T PO; +BENZ100C7 PO; +BENZ100C84 PO; +CEFU1TAB36 PO; +CHOL100010 PO; +CHOL20009 PO; +CLOB-77 TOP; +CYCL5TAB PO; +FRRS300 PO; -GABA-113 PO; +GENT0.3S6; +GUAISYP4 PO; +IBUP-1050 PO; +IPRA-64 INH; -IPRASOL4 INH; +LEVO1TAB35 PO; +MICO4CRE EXT; +MONT1TAB3 PO; +NRN100 PO; +NYSS5 PO; +ONDA4TAB54 PO; +OXYC-737 PO; +PLMINS INH; +PLMINS NEB; +POTA-639 PO; -POTA20TA16 PO; +PRD10 PO; +PRD20 PO; +PRED10TA PO; +SERT-234 PO; -SERT50TA PO; -TIZA1CAP2 PO; +VNTHFA/IN INH; +[UNRECOGNIZED DRUG - CODE] INH
--- NOTE | 2017-02-23 12:48 | DIAGNOSTIC IMAGING REPORT ---
CHEST 2 VIEWS ROUTINE CLINICAL HISTORY: COPD. COMPARISON STUDY: Chest CT August 16, 2016 and chest radiograph December 18, 2016. FINDINGS: Lung volumes are normal. No pneumothorax or pleural effusion is noted. There is no consolidation to suggest pneumonia. Cardiomediastinal silhouette is normal. There is no radiographic evidence of pulmonary edema. Minimal left basilar opacity may reflect atelectasis. The right midlung airspace opacity shown on exam of December 18, 2016 has resolved. Subtle interstitial thickening is likely chronic. IMPRESSION: 1. No acute cardiopulmonary findings. 2. Interval resolution of right lung airspace opacity shown on exam of December 18, 2016. Electronically signed by: Roni Ragland M.D. 02/23/2017 12:46 PM Dictated Date/Time: 02/23/2017 12:45 PM
[2017-02-23 13:42] LABS: INFLUENZA A PCR Neg for Influ A (NEG); INFLUENZA B PCR Neg for Influ B (NEG)
== END | disposition home or self-care (01) ==
LOC: C.RAD1850 11:45
PROVIDERS: ATTEND Physician Assistant
DX: J44.9 Chronic obstructive pulmonary disease, unspecified (principal)

== ENCOUNTER 2017-02-26 08:55 | Emergency (ER) | payer OTHER ==
[~2017-02-26] VITALS: Ht 172.7 cm; Wt 69.0 kg
[~2017-02-26 08:55] MED LIST changes: -ACET-1047 PO; -ACET-1311 PO; -ALBINS/ INH; -ALEN70TA4 PO; -AMOX875T PO; -ATV1 PO; -AZIT-57 PO; -AZIT250T PO; -BENZ100C7 PO; -BENZ100C84 PO; -CEFU1TAB36 PO; -CHOL100010 PO; -CHOL20009 PO; -CLOB-77 TOP; -CYCL5TAB PO; -FRRS300 PO; -GENT0.3S6; -GUAISYP4 PO; -IBUP-1050 PO; -IPRA-64 INH; -LEVO1TAB35 PO; -LPT10 PO; -LSX20 PO; -MICO4CRE EXT; -MONT1TAB3 PO; -NRN100 PO; -NYSS5 PO; -ONDA4TAB54 PO; -OXYC-737 PO; -PLMINS INH; -PLMINS NEB; -PRD10 PO; -PRD20 PO; -PRED20TA2 PO; -RANI150T2 PO; -TRAM-10 PO; -VNTHFA/IN INH; -[UNRECOGNIZED DRUG - CODE] INH
[2017-02-26 09:01] VITALS: TEMP 36.7; Ht 172.7 cm; Wt 69.0 kg
[2017-02-26] MEDS ORDERED: ALBUT/IPRATROP 3MG/0.5MG NEB 3 ML VIAL INH STA (09:22)
[2017-02-26 09:50] LABS: BASO % 0.1 %; BASO ABS # 0.01 K/uL (0-0.2); EOS % 0.3 %; EOS ABS # 0.05 K/uL (0-0.5); HEMATOCRIT 33.7 % (37-47); HEMOGLOBIN 10.8 g/dL (12.0-16.0); IG# 0.15 K/uL (0.00-0.02); LYMPH % 32.1 %; MEAN CELL VOLUME 79.3 fL (80-100); MEAN CORPUSCULAR HEMOGLOBIN 25.4 pg (25-34); MEAN PLATELET VOLUME 9.1 fL (7.4-10.4); MONO % 8.3 %; MONO ABS # 1.24 K/uL (0.11-0.59); NEUT % 58.2 %; NEUT ABS # 8.72 K/uL (1.4-6.5); PLATELET COUNT 470 K/uL (130-400); RED CELL DISTRIBUTION WIDTH CV 14.9 % (11.5-14.5); RED CELL DISTRIBUTION WIDTH SD 42.9 fL (36.4-46.3); WHITE BLOOD COUNT 14.97 K/uL (4.8-10.8)
--- NOTE | 2017-02-26 09:50 | DIAGNOSTIC IMAGING REPORT ---
SINGLE VIEW CHEST CLINICAL HISTORY: Dyspnea. FINDINGS: An AP, portable, upright chest radiograph is compared to study dated 02/23/2017. Correlation is made with chest CT dated 08/16/2016. The examination is degraded by portable technique and patient rotation. The cardiomediastinal silhouette is unremarkable. Chronic interstitial thickening is similar to previous. No airspace consolidation or pleural effusion is identified. No pneumothorax is seen. The skeletal structures are osteopenic. The bony thorax is grossly intact. IMPRESSION: No acute cardiopulmonary abnormality. Electronically signed by: Ariel Chen M.D. 02/26/2017 9:48 AM Dictated Date/Time: 02/26/2017 9:48 AM
[2017-02-26 09:56] VITALS: O2SAT 95
[2017-02-26 09:59] LABS: PTT PATIENT 23.1 SECONDS (21.0-31.0)
[2017-02-26 10:05] LABS: ALBUMIN 3.4 gm/dl (3.4-5.0); ALT/SGPT 11 U/L (12-78); BLOOD UREA NITROGEN 17 mg/dl (7-18); CALCIUM 8.5 mg/dl (8.5-10.1); CARBON DIOXIDE 31 mmol/L (21-32); CREATININE 0.85 mg/dl (0.60-1.20); GLUCOSE 82 mg/dl (70-99); POTASSIUM 3.2 mmol/L (3.5-5.1); SODIUM 142 mmol/L (136-145)
[2017-02-26 10:09] LABS: ALKALINE PHOSPHATASE 66 U/L (45-117); AST/SGOT 7 U/L (15-37); CKMB < 0.5 ng/ml (0.5-3.6); TOTAL PROTEIN 6.6 gm/dl (6.4-8.2)
[2017-02-26 10:47] LABS: INFLUENZA B ANTIGEN Neg for Influ B (NEG)
[2017-02-26] MEDS ORDERED: ACETAMINOPHEN 500 MG TAB PO STA (11:10)
--- NOTE | 2017-02-26 11:43 | EMERGENCY ROOM VISIT NOTE ---
History Report prepared by Navid: Jaden Arciniega Under the Supervision of: Dr. Xavier Alexandre D.O. 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 The patient notes that she has been coughing for three weeks and this morning she became dizzy. She has a history of COPD. She has recently seen her PCP for her cough and was prescribed Levaquin , cough syrup, Tessalon Perles, and Prednisone. She notes that she has had dizzy spells in the past. She denies any palpitations. The patient normally wears at home oxygen at 2L via NC. 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 She denies any palpitations. Review of Systems See HPI for pertinent positives & negatives. A total of 10 systems reviewed and were otherwise negative. 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) Surgical Problems: (1) H/O cervical spine surgery (2) H/O colonoscopy (3) H/O hysterectomy with oophorectomy (4) History of cataract surgery (5) S/P appendectomy (6) S/P bronchoscopy (7) S/p exploration of abdomen (8) S/p left sided discectomy, L3-4 (9) S/P lumbar spinal fusion (10) S/p lumbar spine revision (11) S/P tonsillectomy Family History Blood clots MOTHER Cardiac disorder BROTHER (congenital heart disease) FH: CHF (congestive heart failure) MOTHER FH: heart disease MOTHER GRANDMOTHER FH: lung disease Hypertension Social History Smoking Status: Former Smoker Marital Status: single Housing Status: lives alone Occupation Status: retired Current/Historical Medications Scheduled Alendronate Sodium (Fosamax), 1 TAB PO WK Ascorbic Acid (Vitamin C), 500 MG PO DAILY Atorvastatin (Atorvastatin Calcium), 10 MG PO HS Budesonide (Inhalation) (Pulmicort), 0.5 MG NEB BID Cholecalciferol (Vitamin D3), 2,000 UNITS PO QAM Furosemide (Furosemide), 20 MG PO QAM Home O2 Therapy (Oxygen), 2 LITERS NA CONTINOUS Ipratropium-Albuterol (Duoneb), 3 ML INH QID Pantoprazole (Protonix), 40 MG PO BID Potassium Ext Rel (Klor-Con), 20 MEQ PO QAM Prednisone Tab (Prednisone), 10 MG PO UD Ranitidine HCl (Ranitidine HCl), 150 MG PO BID Roflumilast (Daliresp), 1 TAB PO QAM Sertraline (Zoloft), 100 MG PO HS Tiotropium [place]-Olodaterol (Stiolto Respimat 2.5-2.5 Mcg/Act), 2 PUFFS INH DAILY Scheduled PRN Albuterol Sulfate (Proair Respiclick), 2 PUFFS INH QID PRN for SOB/Wheezing Clobetasol Propionate (Temovate), 1 APPLN TOP BID PRN for psoriasis Guaifenesin/Codeine (Robitussin-Ac Syrup), 5 ML PO Q4H PRN for Cough Lorazepam (Lorazepam), 1 MG PO TID PRN for Anxiety Ondansetron Hcl (Zofran), 4 MG PO Q8 PRN for Nausea Tramadol (Ultram), 50 MG PO Q6H PRN for Pain Allergies Coded Allergies: No Known Allergies (Unverified , 02/26/17) PER PATIENT Physical Exam Vital Signs Date Time Temp Pulse Resp B/P (MAP) Pulse Ox O2 Delivery O2 Flow Rate FiO2 02/26/17 11:56 78 18 135/79 97 02/26/17 11:08 83 18 127/76 97 Nasal Cannula 2.0 02/26/17 09:56 95 Room Air 02/26/17 09:20 97 Room Air 02/26/17 09:19 82 02/26/17 09:01 36.7 92 22 139/75 96 Room Air Physical Exam CONSTITUTIONAL/VITAL SIGNS: Reviewed / noted above. GENERAL: Non-toxic in appearance. Frequent cough. INTEGUMENTARY: Warm, dry, and [place]. HEAD: Normocephalic. EYES: without scleral icterus or trauma. ENT/OROPHARYNX: clear and moist. LYMPHADENOPATHY/NECK: Is supple without lymphadenopathy or meningismus. RESPIRATORY: Lungs clear and equal. CARDIOVASCULAR: Regular rate and rhythm. GI/ABDOMEN: Soft and nontender. No organomegaly or pulsatile mass. No rebound or guarding. Normal bowel sounds. EXTREMITIES: Warm and well perfused. BACK: No CVA tenderness. NEUROLOGICAL: Intact without focal deficits. PSYCHIATRIC: normal affect. MUSCULOSKELETAL: Normally developed with good muscle tone. Medical Decision & Procedures ER Provider Diagnostic Interpretation: Radiology results as stated below per my review and radiologist interpretation: SINGLE VIEW CHEST CLINICAL HISTORY: Dyspnea. FINDINGS: An AP, portable, upright chest radiograph is compared to study dated 02/23/2017. Correlation is made with chest CT dated 08/16/2016. The examination is degraded by portable technique and patient rotation. The cardiomediastinal silhouette is unremarkable. Chronic interstitial thickening is similar to previous. No airspace consolidation or pleural effusion is identified. No pneumothorax is seen. The skeletal structures are osteopenic. The bony thorax is grossly intact. IMPRESSION: No acute cardiopulmonary abnormality. Electronically signed by: Ariel Chen M.D. 02/26/2017 9:48 AM Dictated Date/Time: 02/26/2017 9:48 AM Laboratory Results 02/26/17 09:20 Red Blood Count 4.25, Mean Corpuscular Volume 79.3, Mean Corpuscular Hemoglobin 25.4, Mean Corpuscular Hemoglobin Concent 32.0, Mean Platelet Volume 9.1, Neutrophils (%) (Auto) 58.2, Lymphocytes (%) (Auto) 32.1, Monocytes (%) (Auto) 8.3, Eosinophils (%) (Auto) 0.3, Basophils (%) (Auto) 0.1, Neutrophils # (Auto) 8.72, Lymphocytes # (Auto) 4.80, Monocytes # (Auto) 1.24, Eosinophils # (Auto) 0.05, Basophils # (Auto) 0.01 02/26/17 09:20 Test 02/26/17 09:20 02/26/17 10:18 White Blood Count 14.97 K/uL (4.8-10.8) Red Blood Count 4.25 M/uL (4.2-5.4) Hemoglobin 10.8 g/dL (12.0-16.0) Hematocrit 33.7 % (37-47) Mean Corpuscular Volume 79.3 fL (80-100) Mean Corpuscular Hemoglobin 25.4 pg (25-34) Mean Corpuscular Hemoglobin Concent 32.0 g/dl (32-36) Platelet Count 470 K/uL (130-400) Mean Platelet Volume 9.1 fL (7.4-10.4) Neutrophils (%) (Auto) 58.2 % Lymphocytes (%) (Auto) 32.1 % Monocytes (%) (Auto) 8.3 % Eosinophils (%) (Auto) 0.3 % Basophils (%) (Auto) 0.1 % Neutrophils # (Auto) 8.72 K/uL (1.4-6.5) Lymphocytes # (Auto) 4.80 K/uL (1.2-3.4) Monocytes # (Auto) 1.24 K/uL (0.11-0.59) Eosinophils # (Auto) 0.05 K/uL (0-0.5) Basophils # (Auto) 0.01 K/uL (0-0.2) RDW Standard Deviation 42.9 fL (36.4-46.3) RDW Coefficient of Variation 14.9 % (11.5-14.5) Immature Granulocyte % (Auto) 1.0 % Immature Granulocyte # (Auto) 0.15 K/uL (0.00-0.02) Prothrombin Time 10.0 SECONDS (9.0-12.0) Prothromb Time International Ratio 1.0 (0.9-1.1) Activated Partial Thromboplast Time 23.1 SECONDS (21.0-31.0) Partial Thromboplastin Ratio 0.9 Anion Gap 6.0 mmol/L (3-11) Est Creatinine Clear Calc Drug Dose 64.8 ml/min Estimated GFR () 82.2 Estimated GFR (Non- 70.9 BUN/Creatinine Ratio 19.7 (10-20) Calcium Level 8.5 mg/dl (8.5-10.1) Total Bilirubin 0.2 mg/dl (0.2-1) Aspartate Amino Transf (AST/SGOT) 7 U/L (15-37) Alanine Aminotransferase (ALT/SGPT) 11 U/L (12-78) Alkaline Phosphatase 66 U/L (45-117) Total Creatine Kinase 39 U/L (26-192) Creatine Kinase MB < 0.5 ng/ml (0.5-3.6) Creatine Kinase MB Ratio (0-3.0) Troponin I < 0.015 ng/ml (0-0.045) Total Protein 6.6 gm/dl (6.4-8.2) Albumin 3.4 gm/dl (3.4-5.0) Globulin 3.2 gm/dl (2.5-4.0) Albumin/Globulin Ratio 1.0 (0.9-2) Influenza Type A Antigen Neg for Influ A (NEG) Influenza Type B Antigen Neg for Influ B (NEG) Laboratory results as stated above per my review. Medications Administered Medications (Trade) Dose Ordered Sig/Edis Route Start Time Stop Time Status Last Admin Dose Admin Albuterol/ Ipratropium (Duoneb) 3 ml NOW STAT INH 02/26/17 09:22 02/26/17 09:23 DC 02/26/17 09:43 3 ML Acetaminophen (Tylenol Tab) 1,000 mg NOW STAT PO 02/26/17 11:10 02/26/17 11:11 DC 02/26/17 11:17 1,000 MG ECG Indication: other (dizziness) Rate (beats per minute): 90 Rhythm: normal sinus Findings: no acute ischemic change, no ectopy ED Course 917: Previous medical records were reviewed. The patient was evaluated in room C9. A complete history and physical examination was performed. 921: Ordered DuoNeb 3 ml INH 1110: Ordered Tylenol 1,000 mg PO 1145: I reassessed the patient at this time. She is feeling better and resting comfortably. I discussed the results and treatment plan with the patient. I answered all pertaining questions that she had. She expressed understanding and verbalized agreement. The patient will be discharged home. Medical Decision Differentials include: Acute coronary syndrome, myocardial infarction, CVA, TIA , anemia, infection, pneumonia, UTI, pyelonephritis, poor nutrition, dehydration , electrolyte disturbance, and hypoglycemia. This is a 66-year-old female who presents to the ED with a chief complaint of a cough for the past several weeks. She was placed on Levaquin, cough medication , Tessalon Perles and prednisone on Sunday, 3 days ago. The patient reported some dizziness this morning that was worse with sudden movements. The patient states that she does have occasional dizzy spells even before she was ill. She has no other specific complaints. Her vital signs are normal. Her physical exam was unremarkable. The patient's white blood cell count was 14.97. Complete metabolic panel was unremarkable. Troponin was negative. EKG shows a normal sinus rhythm at a rate of 90. Chest x-ray did not show acute process. The patient was treated with a DuoNeb treatment here and also provided with some Tylenol. She was told to continue the medication that she was placed on. She is felt to be stable for discharge. Her vital signs are stable she is nonfebrile or hypoxic. The patient's dizziness is likely related to some chronic issues as well as possibly the medication that she has been recently placed on. Medication Reconcilliation Current Medication List: was personally reviewed by me Blood Pressure Screening Patient's blood pressure: Elevated blood pressure Blood pressure disposition: Elevated BP felt to be situational Impression Primary Impression: Acute bronchitis Additional Impression: Dizzy Scribe Attestation The scribe's documentation has been prepared under my direction and personally reviewed by me in its entirety. I confirm that the note above accurately reflects all work, treatment, procedures, and medical decision making performed by me. Departure Information Dispostion Home / Self-Care Referrals [place] Clemons MD (PCP) Forms HOME CARE DOCUMENTATION FORM, IMPORTANT VISIT INFORMATION Patient Instructions My [facility] Additional Instructions Follow-up with your doctor for further care and evaluation in 1-2 days. Return to the emergency department for worsening or new symptoms or any concerns. You have been examined and treated today on an emergency basis only. This is not a substitute for, or an effort to provide, complete comprehensive medical care. It is impossible to recognize and treat all injuries or illnesses in a single emergency department visit. It is therefore important that you follow up closely with your doctor. Call as soon as possible for an appointment. Continue the medication you are currently on. Problem Qualifiers
[2017-02-26 11:56] VITALS: BP 135/79; PULSE 78; O2SAT 97
[2017-03-12] MEDS ORDERED: PRED10TA PO (08:10)
[2017-03-12] MEDS ORDERED: ROFL1TAB5 PO (08:10)
[2017-03-18] MEDS ORDERED: OXYC-737 PO (18:05)
[2017-05-01] MEDS ORDERED: TIOT1AER INH (08:10)
[2017-05-01] MEDS ORDERED: PLMINS INH (08:10)
[2017-05-01] MEDS ORDERED: NYSS/ PO (08:10)
[2017-05-01] MEDS ORDERED: VNTHFA/IN INH (08:10)
[2017-05-01] MEDS ORDERED: ASCO1CAP3 PO (08:10)
[2017-05-01] MEDS ORDERED: CHOL20009 PO (08:10)
[2017-05-01] MEDS ORDERED: OXGN (08:10)
[2017-05-01] MEDS ORDERED: CHOL100010 PO (08:10)
[2017-05-01] MEDS ORDERED: ALEN70TA4 PO (12:44)
[2017-05-01] MEDS ORDERED: GUAISYP4 PO (12:44)
[2017-05-01] MEDS ORDERED: TRAM-10 PO (13:01)
[2017-05-01] MEDS ORDERED: IPRA-64 INH (13:01)
[2017-05-01] MEDS ORDERED: CLOB-77 TOP (13:34)
[2017-05-01] MEDS ORDERED: RANI150T2 PO (17:37)
[2017-05-01] MEDS ORDERED: LSX20 PO (17:37)
[2017-05-01] MEDS ORDERED: LPT10 PO (17:37)
[2017-05-01] MEDS ORDERED: ATV1 PO (17:37)
[2017-07-30] MEDS ORDERED: [UNRECOGNIZED DRUG - CODE] INH (11:32)
[2017-07-30] MEDS ORDERED: AMOX875T PO (11:32)
[2017-07-30] MEDS ORDERED: PRED10TA PO (11:32)
[2017-08-17] MEDS ORDERED: PRED10TA PO (14:09)
[2017-08-17] MEDS ORDERED: LEVO1TAB35 PO (14:11)
[2017-08-17] MEDS ORDERED: CYCL5TAB PO (14:11)
[2017-09-06] MEDS ORDERED: ALBINS/ INH (11:03)
[2017-09-06] MEDS ORDERED: ONDA4TAB54 PO (11:04)
[2017-09-24] MEDS ORDERED: VNTHFA/IN INH (11:06)
[2017-09-24] MEDS ORDERED: AZIT-57 PO (11:06)
[2017-09-24] MEDS ORDERED: ACET-1047 PO (11:06)
[2017-09-24] MEDS ORDERED: IBUP-1050 PO (11:06)
[2017-09-24] MEDS ORDERED: PRD20 PO (11:12)
[2017-09-24] MEDS ORDERED: BENZ100C7 PO (11:12)
[2017-09-24] MEDS ORDERED: NYSS5 PO (11:12)
[2017-10-01] MEDS ORDERED: BENZ100C84 PO (11:07)
[2017-10-01] MEDS ORDERED: TIOT1AER INH (11:07)
[2017-10-01] MEDS ORDERED: TRAM-10 PO (11:07)
[2017-10-01] MEDS ORDERED: ACET-1311 PO (11:07)
[2017-10-18] MEDS ORDERED: IPRA-64 INH (14:14)
[2017-10-18] MEDS ORDERED: NRN100 PO (14:14)
[2017-10-18] MEDS ORDERED: VNTHFA/IN INH (14:14)
[2017-10-18] MEDS ORDERED: BENZ100C7 PO (14:14)
[2017-10-18] MEDS ORDERED: PRD10 PO (14:15)
[2017-10-18] MEDS ORDERED: MICO4CRE EXT (14:25)
== END 2017-02-26 11:58 | disposition home or self-care (01) ==
LOC: C.EDB 08:56 → C.EDC 11:58
DX: J20.9 Acute bronchitis, unspecified (principal); R42 Dizziness and giddiness; J44.0 Chronic obstructive pulmonary disease with (acute) lower respiratory infection; K21.9 Gastro-esophageal reflux disease without esophagitis; E78.5 Hyperlipidemia, unspecified; K27.9 Peptic ulcer, site unspecified, unspecified as acute or chronic, without hemorrhage or perforation; Z87.01 Personal history of pneumonia (recurrent); Z87.891 Personal history of nicotine dependence; Z90.710 Acquired absence of both cervix and uterus; Z98.1 Arthrodesis status; Z98.49 Cataract extraction status, unspecified eye; Z90.89 Acquired absence of other organs; Z98.890 Other specified postprocedural states; Z82.49 Family history of ischemic heart disease and other diseases of the circulatory system; Z82.79 Family history of other congenital malformations, deformations and chromosomal abnormalities; Z79.899 Other long term (current) drug therapy

== ENCOUNTER → 2017-03-14 | Day surgery (SDC) | payer OTHER ==
[2017-03-12 08:11] VITALS: Ht 172.7 cm; Wt 72.7 kg
[~2017-03-14] VITALS: Ht 172.7 cm; Wt 72.7 kg
[~2017-03-14] MED LIST changes: -ALBU18002 INH; +ALEN70TA4 PO; -AMOX/K OR; +ATV1 PO; -BUDE1SUS NEB; -CHOL1000 PO; +CHOL100010 PO; +CHOL20009 PO; +CLOB-77 TOP; +FENTANYL CITRATE INJ 50 MCG/1 ML 2 ML VIAL ONE; +GUAISYP4 PO; +IPRASOL4 INH; +LPT10 PO; +LSX20 PO; +MIDAZOLAM HCL 1 MG/ML 2ML VIAL ONE; +OXYC1TAB3 PO; +PLMINS INH; -POTA-639 PO; +POTA20TA16 PO; +PROPOFOL IV EMULSION 10 MG/ML 20 ML VIAL IV ONE; +RANI150T2 PO; +TRAM-10 PO; +VNTHFA/IN INH; -VTMD1000 PO
[2017-03-14 09:22] VITALS: TEMP 36.6
--- NOTE | 2017-03-14 09:26 | Endo History and Physical ---
History & Physical Date of Service: Mar 14, 2017. Chief Complaint: Dysphagia, Hx polyps Referring Physician: Dr Clemons History of Present Illness Ho polyps, dysphagia Past Medical History Arthritis, Asthma, Reflux, High Cholesterol, Hypertension, COPD, Other Past Surgical History Hx Cardiac Surgery: No Hx Internal Defibrillator: No Hx Pacemaker: No Hx Abdominal Surgery: Yes (MARICRUZ BSO, APPY, EXPLORATORY LAP, OLE) Hx of Implantable Prosthesis: No Hx Post-Op Nausea and Vomiting: No Hx Cancer Surgery: Yes (CERVICAL BX X 2) Hx Thoracic Surgery: Yes (BRONCHOSCOPY X 4) Hx Orthopedic: Yes (ARM AND SHOULDER CYST REMOVAL, LUMBAR DISECTOMY/FUSION&REV , CERVICAL FUSION) Hx Urinary Tract Surgery: No Family History None Social History Smoking Status: Former Smoker Hx Substance Use: No Hx Alcohol Use: No Allergies Coded Allergies: No Known Allergies (Unverified , 03/12/17) PER PATIENT Current Medications Reported Home Medications Medications Dose Route/Sig Max Daily Dose Days Date Category Dose Instructions Ventolin Hfa (Albuterol) 200 Puffs/41442 Mcg Aers 2-4 Puffs INH Q6H PRN 03/12/17 Reported Pulmicort Respules 0.5MG/2ML (Budesonide (Inhalation)) 0.5 Mg/2 Ml [place] 2 Ml INH BID 03/12/17 Reported Vitamin C (Ascorbic Acid) 500 Mg Cap 1 Cap PO HS 03/12/17 Reported Oxygen Gas 2 Liters NA CONT 03/12/17 Reported Nystatin Suspension (Nystatin) 1 Ml Susp 5 Ml PO DIRECTED 03/12/17 Reported Stiolto Respimat 2.5-2.5 Mcg/Act (Tiotropium [place]-Olodaterol) 1 Aer Aer 1 Dose INH BID 03/12/17 Reported Daliresp (Roflumilast) 500 Mcg Tab 1 Tab PO QAM 03/12/17 Reported Vitamin D (Cholecalciferol) 1,000 Unit Tab 1 Tab PO HS 03/12/17 Reported Vitamin D (Cholecalciferol) 2,000 Unit Tab 1 Tab PO QAM 03/12/17 Reported Prednisone 10 Mg Tab 10 Mg PO QAM 03/12/17 Reported TAPERED DOSE FOR A COUGH. Zoloft (Sertraline HCl) 100 Mg Tab 100 Mg PO HS 12/14/16 Reported Temovate (Clobetasol Propionate) 0.05 % Cre 1 Appln TOP BID PRN 14 12/14/16 Reported Fosamax (Alendronate Sodium) 70 Mg Tab 1 Tab PO WK 28 12/14/16 Reported Robitussin-Ac Syrup (Codeine Phosphate/Guaifenesin) Syrp 5 Ml PO Q4H PRN 4 12/14/16 Reported Zofran (Ondansetron HCl) 4 Mg Tab 4 Mg PO Q8 PRN 06/06/16 Reported Protonix (Pantoprazole Sodium) 40 Mg Tab 40 Mg PO BID 03/13/16 Reported Klor-Con (Potassium Chloride) 20 Meq Tabcr 20 Meq PO QAM 12/26/15 Reported Lorazepam 1 Mg Tab 1 Mg PO TID PRN 10/21/15 Reported Ranitidine HCl 150 Mg Tab 150 Mg PO BID 10/21/15 Reported Lipitor (Atorvastatin Calcium) 10 Mg Tab 10 Mg PO HS 10/21/15 Reported Furosemide 20 Mg Tab 20 Mg PO QAM 10/21/15 Reported Duoneb (Ipratropium-Albuterol) 3 Ml Nebu 3 Ml INH QID 09/25/15 Reported Ultram (Tramadol HCl) 50 Mg Tab 50 Mg PO Q6H PRN 09/25/15 Reported Vital Signs Weight (Kilograms): 72.73 Height (Feet): 5 Height (Inches): 8 Date Time Temp Pulse Resp B/P (MAP) Pulse Ox O2 Delivery O2 Flow Rate FiO2 03/14/17 09:22 36.6 84 16 138/76 (96) 93 Room Air Physical Exam General Appearance: no apparent distress Respiratory/Chest: Auscultation: breath sounds normal Cardiovascular: Heart Auscultation: RRR Abdomen: Inspection & Palpation: soft Assessment and Plan Dysphagia - EGD, cscopy
--- NOTE | 2017-03-14 11:00 | Anesthesiology Progress Note ---
Anesthesia Post Op Note Date & Time Mar 14, 2017 at 11:00 Vital Signs Pain Intensity: 0 Vital Signs Past 12 Hours Date Time Temp Pulse Resp B/P (MAP) Pulse Ox O2 Delivery O2 Flow Rate FiO2 03/14/17 10:54 76 18 118/72 (87) 100 Nasal Cannula 2 03/14/17 10:39 72 16 127/70 (89) 100 Nasal Cannula 2 03/14/17 09:22 36.6 84 16 138/76 (96) 93 Room Air Notes Mental Status: alert / awake / arousable, participated in evaluation Nausea / Vomiting: adequately controlled Pain: adequately controlled Airway Patency, RR, SpO2: stable & adequate BP & HR: stable & adequate Hydration State: stable & adequate Anesthetic Complications: no major complications apparent
--- NOTE | 2017-03-14 11:02 | GI REPORT ---
Procedure Date: 03/14/2017 10:01 AM Procedure: Colonoscopy Indications: High risk colon cancer surveillance: Personal history of colonic polyps Medicines: See the Anesthesia note for documentation of the administered medications Complications: No immediate complications. Estimated Blood Loss: Estimated blood loss: none. Procedure: Pre-Anesthesia Assessment: - ASA Grade Assessment: III - A patient with severe systemic disease. After I obtained informed consent, the scope was passed under direct vision. Throughout the procedure, the patient's blood pressure, pulse, and oxygen saturations were monitored continuously. The scope was introduced through the anus and advanced to the terminal ileum. The colonoscopy was performed without difficulty. The patient tolerated the procedure well. The quality of the bowel preparation was good. Findings: Skin tags were found on perianal exam. Multiple small-mouthed diverticula were found in the sigmoid colon. A few large angiodysplastic lesions without bleeding were found in the ascending colon. A 4 mm polyp was found in the ascending colon. The polyp was sessile. The polyp was removed with a cold snare. Resection and retrieval were complete. Hemorrhoids on retroflexion. The exam was otherwise without abnormality. Impression: - Perianal skin tags found on perianal exam. - Diverticulosis in the sigmoid colon. - A few non-bleeding colonic angiodysplastic lesions. - One 4 mm polyp in the ascending colon, removed with a cold snare. Resected and retrieved. - The examination was otherwise normal. Recommendation: - Discharge patient to home. Given comorbidities, would not pursue further CRC surveillance. Bethany Calderon M.D. Bethany Calderon MD 03/14/2017 11:02:19 AM This report has been signed electronically. Note Initiated On: 03/14/2017 10:01 AM I attest to the content of the Intraoperative Record and orders documented therein, exceptions below
--- NOTE | 2017-03-14 11:03 | Discharge Instructions ---
Endoscopy Patient Instructions Date / Procedure(s) Performed Mar 14, 2017. Colonoscopy, EGD Allergy Information Coded Allergies: No Known Allergies (Unverified , 03/12/17) PER PATIENT Discharge Date / Findings Mar 14, 2017. Diminutive polyp, AVM, diverticulosis, hemorrhoids Provider Instructions Activity Restrictions - No exercising or heavy lifting for 24 hours. - Do not drink alcohol the day of the procedure. - Do not drive a car or operate machinery until the day after the procedure. - Do not make any important decisions or sign important papers in 24 hours after the procedure. Following Day: - Return to full activity which may include returning to work/school. Diet Start your diet with liquids and light foods (jello, soup, juice, toast). Then eat your usual diet if not nauseated. Treatment For Common After Affects For mild abdominal pain, bloating, or excessive gas: - Rest - Eat lightly - Lie on right side Follow-Up Information Follow-up with Dr Clemons as scheduled Anesthesia Information What You Should Know You have had a procedure that required some medicine to reduce anxiety and discomfort. This treatment is called moderate sedation. After receiving the treatment, you may be sleepy, but you will be able to breathe on your own. The effects of the treatment may last for several hours. Follow these instructions along with Activity/Diet recommendations noted above: * Do NOT do anything where dizziness or clumsiness would be dangerous. * Rest quietly at home today, then you can be up and about tomorrow. * Have a responsible person stay with you the rest of today. * You may have had an I.V. today. If so, you may take the dressing off later today. Recommendations Call your doctor if: * Trouble breathing * Continuous vomiting for more than 24 hours * Temperature above 101 degrees * Severe abdominal pain or bloating * Pain not relieved by pain medicine ordered * There is increased drainage or redness from any incision * A large amount of rectal bleeding greater than 2-3 tablespoons. (If you had a polyp/s removed or have hemorrhoids, a small amount of blood - from the rectum is to be expected.) * You have any unanswered questions or concerns. IN THE EVENT OF A SERIOUS EMERGENCY, GO TO THE NEAREST EMERGENCY ROOM Your discharge instructions were prepared by provider Bethany Farmer. Patient Instructions Signature Page Mar Em Patient (or Guardian) Signature/Date: I have read and understand the instructions given to me by my caregivers. Caregiver/RN/Doctor Signature/Date: The above-named patient and/or guardian has received patient instructions on this date. + Original Patient Signature Page (only) stays with chart. Please make copy for patient.
[2017-03-14 11:09] VITALS: BP 106/70; PULSE 68; O2SAT 100
== END | disposition home or self-care (01) ==
LOC: C.GI 08:42
PROVIDERS: ATTEND Internal Medicine Gastroenterology
DX: Z12.11 Encounter for screening for malignant neoplasm of colon (principal); D12.2 Benign neoplasm of ascending colon; K55.20 Angiodysplasia of colon without hemorrhage; K57.30 Diverticulosis of large intestine without perforation or abscess without bleeding; K64.4 Residual hemorrhoidal skin tags; R13.10 Dysphagia, unspecified; M19.90 Unspecified osteoarthritis, unspecified site; J45.909 Unspecified asthma, uncomplicated; K21.9 Gastro-esophageal reflux disease without esophagitis; E78.00 Pure hypercholesterolemia, unspecified; J44.9 Chronic obstructive pulmonary disease, unspecified; Z87.891 Personal history of nicotine dependence; Z79.899 Other long term (current) drug therapy; Z86.010 Personal history of colon polyps

== ENCOUNTER 2017-03-18 15:54 | Emergency (ER) | payer OTHER ==
[~2017-03-18] VITALS: Ht 172.7 cm; Wt 74.2 kg
[~2017-03-18 15:54] MED LIST changes: -FENTANYL CITRATE INJ 50 MCG/1 ML 2 ML VIAL ONE; -MIDAZOLAM HCL 1 MG/ML 2ML VIAL ONE; -OXYC1TAB3 PO; -PROPOFOL IV EMULSION 10 MG/ML 20 ML VIAL IV ONE
[2017-03-18 16:01] VITALS: TEMP 37.2; Ht 172.7 cm; Wt 74.2 kg
[2017-03-18] MEDS ORDERED: MoRPHine SULFATE 4 MG/ML 1 ML CARP\\VIAL IV STA (16:13)
[2017-03-18] MEDS ORDERED: ONDANSETRON INJ 2 MG/ML 2 ML VIAL IV STA (16:13)
[2017-03-18 17:02] LABS: BASO % 0.1 %; BASO ABS # 0.01 K/uL (0-0.2); EOS % 2.2 %; EOS ABS # 0.19 K/uL (0-0.5); HEMOGLOBIN 10.7 g/dL (12.0-16.0); IG# 0.02 K/uL (0.00-0.02); LYMPH % 28.4 %; LYMPH ABS # 2.49 K/uL (1.2-3.4); MEAN CELL VOLUME 80.2 fL (80-100); MEAN CORPUSCULAR HEMOGLOBIN 25.2 pg (25-34); MEAN CORPUSCULAR HGB CONC 31.5 g/dl (32-36); MEAN PLATELET VOLUME 8.9 fL (7.4-10.4); MONO % 7.3 %; MONO ABS # 0.64 K/uL (0.11-0.59); NEUT % 61.8 %; NEUT ABS # 5.41 K/uL (1.4-6.5); PLATELET COUNT 273 K/uL (130-400); RED CELL DISTRIBUTION WIDTH CV 16.2 % (11.5-14.5); RED CELL DISTRIBUTION WIDTH SD 47.3 fL (36.4-46.3); WHITE BLOOD COUNT 8.76 K/uL (4.8-10.8)
[2017-03-18 17:24] LABS: ALBUMIN 3.6 gm/dl (3.4-5.0); ALT/SGPT 14 U/L (12-78); BLOOD UREA NITROGEN 14 mg/dl (7-18); CALCIUM 8.7 mg/dl (8.5-10.1); CARBON DIOXIDE 28 mmol/L (21-32); GLUCOSE 74 mg/dl (70-99); LIPASE 87 U/L (73-393); POTASSIUM 3.5 mmol/L (3.5-5.1); SODIUM 139 mmol/L (136-145)
[2017-03-18 17:29] LABS: ALKALINE PHOSPHATASE 77 U/L (45-117); AST/SGOT 14 U/L (15-37); TOTAL PROTEIN 7.1 gm/dl (6.4-8.2)
--- NOTE | 2017-03-18 17:31 | DIAGNOSTIC IMAGING REPORT ---
R RIBS UNILATERAL WITH PA CHEST HISTORY: 66 years-old Female r sided rib pain acute right-sided rib pain COMPARISON: Portable chest radiograph 02/26/2017 TECHNIQUE: PA view of the chest with 4 views of the right ribs FINDINGS: Cardiomediastinal and hilar silhouettes are within normal limits. No pneumothorax, pleural effusion, focal airspace consolidation or overt pulmonary edema. Linear subsegmental opacity of the medial right lung base suggests scarring or atelectasis. No acute rib fracture identified. Cholecystectomy clips noted. Fusion hardware of the lower lumbar spine. Bones appear mildly demineralized. IMPRESSION: 1. No acute process of the chest. 2. No acute rib fracture or pneumothorax. The above report was generated using voice recognition software. It may contain grammatical, syntax or spelling errors. Electronically signed by: Trae Samayoa M.D. 03/18/2017 5:30 PM Dictated Date/Time: 03/18/2017 5:27 PM
[2017-03-18] MEDS ORDERED: OXYC1TAB3 PO (18:05)
[2017-03-18 18:11] VITALS: BP 131/75; PULSE 79; O2SAT 95
--- NOTE | 2017-03-18 23:08 | EMERGENCY ROOM VISIT NOTE ---
History Report prepared by Navid: Virginia Wang Under the Supervision of: Thor CardonaO. First contact with patient: 16:04 Chief Complaint: RIB PAIN Stated Complaint: PAIN IN LEFT UPPER SIDE AND LOWER BACK History of Present Illness The patient is a 66 year old female who presents to the Emergency Room with complaints of a persistent right sided flank pain that began 4 days ago. The patient states that her pain worsens when she twists, turns, moves, or upon exertion. She notes it started specifically on Sunday when she rolled over in bed. When she rolled over she felt a sharp stabbing pain. She notes that her pain radiates to her right ribs and lower back. The patient states she has had a cough for a few days. She notes she had a colonoscopy 4 days ago. The patient states she took tramadol 4 hours ago. Pt denies headache, change in vision, fevers, chest pain, shortness of breath, nausea, vomiting, diarrhea, pain with urination, and melena. Source of History: patient Onset: 4 days ago Position: other (right flank ) Quality: other (flank pain) Timing: other (persistent) Associated Symptoms: + cough, No fevers, No headache, No chest pain, No SOB , No vomiting, No melena, No diarrhea, No urinary symptoms Review of Systems See HPI for pertinent positives & negatives. A total of 10 systems reviewed and were otherwise negative. 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) Surgical Problems: (1) H/O cervical spine surgery (2) H/O colonoscopy (3) H/O hysterectomy with oophorectomy (4) History of cataract surgery (5) S/P appendectomy (6) S/P bronchoscopy (7) S/p exploration of abdomen (8) S/p left sided discectomy, L3-4 (9) S/P lumbar spinal fusion (10) S/p lumbar spine revision (11) S/P tonsillectomy Family History Blood clots MOTHER Cardiac disorder BROTHER (congenital heart disease) FH: CHF (congestive heart failure) MOTHER FH: heart disease MOTHER GRANDMOTHER FH: lung disease Hypertension Social History Smoking Status: Never Smoker Marital Status: single Housing Status: lives alone Occupation Status: retired Current/Historical Medications Scheduled Alendronate Sodium (Fosamax), 1 TAB PO WK Ascorbic Acid (Vitamin C), 1 CAP PO HS Atorvastatin (Lipitor), 10 MG PO HS Budesonide (Inhalation) (Pulmicort Respules 0.5MG/2ML), 2 ML INH BID Cholecalciferol (Vitamin D), 1 TAB PO QAM Cholecalciferol (Vitamin D), 1 TAB PO HS Furosemide (Furosemide), 20 MG PO QAM Home O2 Therapy (Oxygen), 2 LITERS NA CONT Ipratropium-Albuterol (Duoneb), 3 ML INH QID Nystatin (Nystatin Suspension), 5 ML PO DIRECTED Pantoprazole (Protonix), 40 MG PO BID Potassium Ext Rel (Klor-Con), 20 MEQ PO QAM Ranitidine HCl (Ranitidine HCl), 150 MG PO BID Roflumilast (Daliresp), 1 TAB PO QAM Sertraline (Zoloft), 100 MG PO HS Tiotropium [place]-Olodaterol (Stiolto Respimat 2.5-2.5 Mcg/Act), 2 SPRAYS INH BID Scheduled PRN Albuterol Hfa (Ventolin Hfa), 2-4 PUFFS INH Q6H PRN for Shortness of Breath Clobetasol Propionate (Temovate), 1 APPLN TOP BID PRN for psoriasis Guaifenesin/Codeine (Robitussin-Ac Syrup), 5 ML PO Q4H PRN for Cough Lorazepam (Lorazepam), 1 MG PO TID PRN for Anxiety Ondansetron Hcl (Zofran), 4 MG PO Q8 PRN for Nausea Oxycodone Immediate Rel Tab (Roxicodone Ir), 5 MG PO Q6H PRN for Pain Tramadol (Ultram), 50 MG PO Q6H PRN for Pain Allergies Coded Allergies: No Known Allergies (Unverified , 03/12/17) PER PATIENT Physical Exam Vital Signs Date Time Temp Pulse Resp B/P (MAP) Pulse Ox O2 Delivery O2 Flow Rate FiO2 03/18/17 18:11 79 20 131/75 95 03/18/17 17:00 89 20 127/72 98 03/18/17 16:01 37.2 115 18 142/79 94 Room Air Physical Exam GENERAL: Sitting up in bed, holding right flank, alert, well appearing, well nourished, in minimal distress, non-toxic EYE EXAM: normal conjunctiva. OROPHARYNX: no exudate, no erythema, lips, buccal mucosa, and tongue normal and mucous membranes are moist NECK: supple, no nuchal rigidity, no adenopathy, non-tender LUNGS: Clear to auscultation. Normal chest wall mechanics HEART: no murmurs, S1 normal and S2 normal CHEST: Acute reproducible tenderness under right breast to mid axillary. ABDOMEN: abdomen soft, non-tender, normo-active bowel sounds, no masses, no rebound or guarding. BACK: Back is symmetrical on inspection and there is no deformity, no midline tenderness, no CVA tenderness. SKIN: no rashes and no bruising UPPER EXTREMITIES: upper extremities are grossly normal. LOWER EXTREMITIES: Calves equal bilaterally. No pitting edema. NEURO EXAM: Normal sensorium, cranial nerves II-XII grossly intact, normal speech, no gross weakness of arms, no gross weakness of legs. Medical Decision & Procedures ER Provider Diagnostic Interpretation: Radiology results as stated below per my review and the radiologist's interpretation: R RIBS UNILATERAL WITH PA CHEST HISTORY: 66 years-old Female r sided rib pain acute right-sided rib pain COMPARISON: Portable chest radiograph 02/26/2017 TECHNIQUE: PA view of the chest with 4 views of the right ribs FINDINGS: Cardiomediastinal and hilar silhouettes are within normal limits. No pneumothorax, pleural effusion, focal airspace consolidation or overt pulmonary edema. Linear subsegmental opacity of the medial right lung base suggests scarring or atelectasis. No acute rib fracture identified. Cholecystectomy clips noted. Fusion hardware of the lower lumbar spine. Bones appear mildly demineralized. IMPRESSION: 1. No acute process of the chest. 2. No acute rib fracture or pneumothorax. The above report was generated using voice recognition software. It may contain grammatical, syntax or spelling errors. Electronically signed by: Trae Samayoa M.D. 03/18/2017 5:30 PM Dictated Date/Time: 03/18/2017 5:27 PM Laboratory Results 03/18/17 16:50 Red Blood Count 4.24, Mean Corpuscular Volume 80.2, Mean Corpuscular Hemoglobin 25.2, Mean Corpuscular Hemoglobin Concent 31.5, Mean Platelet Volume 8.9, Neutrophils (%) (Auto) 61.8, Lymphocytes (%) (Auto) 28.4, Monocytes (%) (Auto) 7.3, Eosinophils (%) (Auto) 2.2, Basophils (%) (Auto) 0.1, Neutrophils # (Auto) 5.41, Lymphocytes # (Auto) 2.49, Monocytes # (Auto) 0.64, Eosinophils # (Auto) 0.19, Basophils # (Auto) 0.01 03/18/17 16:50 Test 03/18/17 16:50 White Blood Count 8.76 K/uL (4.8-10.8) Red Blood Count 4.24 M/uL (4.2-5.4) Hemoglobin 10.7 g/dL (12.0-16.0) Hematocrit 34.0 % (37-47) Mean Corpuscular Volume 80.2 fL (80-100) Mean Corpuscular Hemoglobin 25.2 pg (25-34) Mean Corpuscular Hemoglobin Concent 31.5 g/dl (32-36) Platelet Count 273 K/uL (130-400) Mean Platelet Volume 8.9 fL (7.4-10.4) Neutrophils (%) (Auto) 61.8 % Lymphocytes (%) (Auto) 28.4 % Monocytes (%) (Auto) 7.3 % Eosinophils (%) (Auto) 2.2 % Basophils (%) (Auto) 0.1 % Neutrophils # (Auto) 5.41 K/uL (1.4-6.5) Lymphocytes # (Auto) 2.49 K/uL (1.2-3.4) Monocytes # (Auto) 0.64 K/uL (0.11-0.59) Eosinophils # (Auto) 0.19 K/uL (0-0.5) Basophils # (Auto) 0.01 K/uL (0-0.2) RDW Standard Deviation 47.3 fL (36.4-46.3) RDW Coefficient of Variation 16.2 % (11.5-14.5) Immature Granulocyte % (Auto) 0.2 % Immature Granulocyte # (Auto) 0.02 K/uL (0.00-0.02) Urine Color YELLOW Urine Appearance CLEAR (CLEAR) Urine pH 6.0 (4.5-7.5) Urine Specific [place] 1.023 (1.000-1.030) Urine Protein NEG (NEG) Urine Glucose (UA) NEG (NEG) Urine Ketones TRACE (NEG) Urine Occult Blood 1+ (NEG) Urine Nitrite NEG (NEG) Urine Bilirubin NEG (NEG) Urine Urobilinogen NEG (NEG) Urine Leukocyte Esterase SMALL (NEG) Urine WBC (Auto) 1-5 /hpf (0-5) Urine RBC (Auto) 10-30 /hpf (0-4) Urine Hyaline Casts (Auto) 1-5 /lpf (0-5) Urine Epithelial Cells (Auto) 10-20 /lpf (0-5) Urine Bacteria (Auto) NEG (NEG) Anion Gap 10.0 mmol/L (3-11) Est Creatinine Clear Calc Drug Dose 68.8 ml/min Estimated GFR () 88.4 Estimated GFR (Non- 76.3 BUN/Creatinine Ratio 17.6 (10-20) Calcium Level 8.7 mg/dl (8.5-10.1) Total Bilirubin 0.3 mg/dl (0.2-1) Direct Bilirubin < 0.1 mg/dl (0-0.2) Aspartate Amino Transf (AST/SGOT) 14 U/L (15-37) Alanine Aminotransferase (ALT/SGPT) 14 U/L (12-78) Alkaline Phosphatase 77 U/L (45-117) Troponin I < 0.015 ng/ml (0-0.045) Total Protein 7.1 gm/dl (6.4-8.2) Albumin 3.6 gm/dl (3.4-5.0) Lipase 87 U/L (73-393) Laboratory results per my review. Medications Administered Medications (Trade) Dose Ordered Sig/Edis Route Start Time Stop Time Status Last Admin Dose Admin Morphine Sulfate (MoRPHine SULFATE INJ) 4 mg NOW STAT IV 03/18/17 16:13 03/18/17 16:14 DC 03/18/17 16:55 4 MG Ondansetron HCl (Zofran Inj) 4 mg NOW STAT IV 03/18/17 16:13 03/18/17 16:15 DC 03/18/17 16:54 4 MG ECG Indication: other (pain) Rate (beats per minute): 101 Rhythm: sinus tachycardia Findings: no ectopy, other (normal axis) Change: Patient's Electrocardiogram interpreted by id ED Course ED COURSE: Vital signs were reviewed and showed a tachycardic rate. The patients medical record was reviewed The above diagnostic studies were performed and reviewed. ED treatments and interventions as stated above. 1610: The patient was evaluated in room B2. A complete history and physical examination was performed. 1613: Ordered Zofran Inj 4mg IV and Morphine Sulfate 4mg IV. 1802: Upon reevaluation, the patient is feeling better. I discussed the findings and the treatment plan with the patient. She verbalizes agreement and understanding. The patient was discharged home. Medical Decision Differential diagnoses includes but is not limited to acute coronary syndrome, myocardial infarction, pericarditis, pulmonary embolus, aortic dissection, pneumonia, pneumothorax, musculoskeletal, shingles, esophageal. Patient is a 66-year-old female who presents to ER for right flank pain. She has acute reproducible tenderness along her ribs. Pain started while she rolled over in bed. It was acute. Any kind of movement makes the pain worse. CBC all BMP, LFTs, bilirubin and troponin and lipase is unremarkable. UA without signs of infection. Chest x-ray of the ribs show no acute fracture. I do not believe this is a PE based on her history. We'll not proceed any further. EKG was unremarkable. Patient was updated bedside. She was given narcotics. She was discharged follow-up as an outpatient. Discussed with Pt concerning signs and symptoms to watch out for. Pt was instructed to follow up with their PCP and discussed with the patient their option to return to the ED at anytime for persistent or worsening symptoms. The appropriate anticipatory guidance and out-patient management, including indications for return to the emergency department, were explained at length to the patient and understood. Medication Reconcilliation Current Medication List: was personally reviewed by id Blood Pressure Screening Patient's blood pressure: Normal blood pressure Impression Primary Impression: Right-sided chest wall pain Scribe Attestation The scribe's documentation has been prepared under my direction and personally reviewed by me in its entirety. I confirm that the note above accurately reflects all work, treatment, procedures, and medical decision making performed by me. Departure Information Dispostion Home / Self-Care Prescriptions Oxycodone Immediate Rel Tab (ROXICODONE IR) 5 Mg Tab 5 MG PO Q6H Y for Pain, #10 TAB Prov: Jagdeep Love, DO 03/18/17 Referrals No Doctor, Assigned (PCP) Forms HOME CARE DOCUMENTATION FORM, IMPORTANT VISIT INFORMATION, WORK / SCHOOL INSTRUCTIONS Patient Instructions My [facility] Additional Instructions Please follow up with your primary care doctor with in the next 24 hours. Any worsening of your symptoms, please return to the ED immediately. This includes any fevers greater than 100.4, worsening pain, chest pain, shortness breath, persistent nausea, vomiting, unable to eat or drink, or any other concerning signs or symptoms from your standpoint. You were given medications during this visit that will inhibit your ability to drive, operate machinery and work. Please do NOT drive, operate machinery or work for the next 12hrs. You were also given a prescription for a narcotic. While taking this medication you should also not drive, operate machinery and or work.
== END 2017-03-18 18:12 | disposition home or self-care (01) ==
LOC: C.EDB 15:56
DX: R07.89 Other chest pain (principal); J44.9 Chronic obstructive pulmonary disease, unspecified; G47.33 Obstructive sleep apnea (adult) (pediatric); F10.21 Alcohol dependence, in remission; I10 Essential (primary) hypertension; K58.9 Irritable bowel syndrome, unspecified

== ENCOUNTER → 2017-04-10 | Outpatient (CLI) | payer OTHER ==
[~2017-04-10] MED LIST changes: +OXYC1TAB3 PO; -PRED10TA PO
--- NOTE | 2017-04-10 12:50 | DIAGNOSTIC IMAGING REPORT ---
(BARIUM SWALLOW) ESOPHAGUS CLINICAL HISTORY: Aspiration during colonoscopy. COMPARISON STUDY: None. FLUOROSCOPY TIME: 1.1 minute. FINDINGS: 22 images submitted. The patient swallowed barium without difficulty. Small lobular filling defect within the right vallecula. This could represent a small nodule. Otherwise, the contours of the hypopharynx are within normal limits. The esophagus is normal in course and caliber. There is mild esophageal dysmotility. No significant hiatus hernia. No gastroesophageal reflux. IMPRESSION: 1. Small lobular filling defect within the right vallecula. This could represent a small nodule. Direct visualization is recommended for confirmation. 2. Mild esophageal dysmotility. Electronically signed by: Livan Torres M.D. 04/10/2017 12:49 PM Dictated Date/Time: 04/10/2017 12:46 PM
--- NOTE | 2017-04-13 13:19 | PULMONARY FUNCTION TEST ---
Prebronchodilator spirometry suggests a mild obstructive ventilatory defect even more pronounced at low lung volumes. There was an excellent response to bronchodilator suggesting a reversible airways component. Lung volumes demonstrate evidence for significant hyperinflation on an air trapping. Diffusion capacity was moderately reduced. Clinical correlation is needed.
== END | disposition home or self-care (01) ==
LOC: C.RC 12:10
PROVIDERS: ATTEND Physician Assistant
DX: J44.9 Chronic obstructive pulmonary disease, unspecified (principal); G47.33 Obstructive sleep apnea (adult) (pediatric)

== ENCOUNTER 2017-05-01 20:23 | Emergency (ER) | payer OTHER ==
[~2017-05-01] VITALS: Ht 172.7 cm; Wt 74.9 kg
[2017-05-01 20:27] VITALS: TEMP 36.6; Ht 172.7 cm; Wt 74.9 kg
[2017-05-01] MEDS ORDERED: ALBUT/IPRATROP 3MG/0.5MG NEB 3 ML VIAL INH STA ×2 (20:34→21:37)
--- NOTE | 2017-05-01 20:37 | EMERGENCY ROOM VISIT NOTE ---
History Report prepared by Navid: Aidee Gracia Under the Supervision of: Dr. Jose Carlos Yo D.O. First contact with patient: 20:29 Chief Complaint: COUGH Stated Complaint: COUGHING Nursing Triage Summary: pt reports cough X 1 week and it is not getting better . pt reports unable to sleep cough is waking her up at night. 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 She reports she has had a bad cough in the past that was bronchitis. She currently has a sore throat. She denies nausea, vomiting, fevers, or leg swelling. The patient states that this feels like a COPD or bronchitis episode. 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 Review of Systems See HPI for pertinent positives & negatives. A total of 10 systems reviewed and were otherwise negative. 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) Surgical Problems: (1) H/O cervical spine surgery (2) H/O colonoscopy (3) H/O hysterectomy with oophorectomy (4) History of cataract surgery (5) S/P appendectomy (6) S/P bronchoscopy (7) S/p exploration of abdomen (8) S/p left sided discectomy, L3-4 (9) S/P lumbar spinal fusion (10) S/p lumbar spine revision (11) S/P tonsillectomy Family History Blood clots MOTHER Cardiac disorder BROTHER (congenital heart disease) FH: CHF (congestive heart failure) MOTHER FH: heart disease MOTHER GRANDMOTHER FH: lung disease Hypertension Social History Smoking Status: Former Smoker Marital Status: single Housing Status: lives alone Occupation Status: retired Current/Historical Medications Scheduled Alendronate Sodium (Fosamax), 1 TAB PO WK Ascorbic Acid (Vitamin C), 1 CAP PO HS Atorvastatin (Lipitor), 10 MG PO HS Azithromycin (Zithromax), 250 MG PO DAILY Budesonide (Inhalation) (Pulmicort Respules 0.5MG/2ML), 2 ML INH BID Cholecalciferol (Vitamin D), 1 TAB PO QAM Cholecalciferol (Vitamin D), 1 TAB PO HS Furosemide (Furosemide), 20 MG PO QAM Home O2 Therapy (Oxygen), 2 LITERS NA CONT Ipratropium-Albuterol (Duoneb), 3 ML INH QID Nystatin (Nystatin Suspension), 5 ML PO DIRECTED Pantoprazole (Protonix), 40 MG PO BID Potassium Ext Rel (Klor-Con), 20 MEQ PO QAM Prednisone (Prednisone Tab), 40 MG PO DAILY Ranitidine HCl (Ranitidine HCl), 150 MG PO BID Roflumilast (Daliresp), 1 TAB PO QAM Sertraline (Zoloft), 100 MG PO HS Tiotropium [place]-Olodaterol (Stiolto Respimat 2.5-2.5 Mcg/Act), 2 SPRAYS INH BID Scheduled PRN Albuterol Hfa (Ventolin Hfa), 2 PUFFS INH Q6H PRN for Shortness of Breath Clobetasol Propionate (Temovate), 1 APPLN TOP BID PRN for psoriasis Guaifenesin/Codeine (Robitussin-Ac Syrup), 5 ML PO Q4H PRN for Cough Lorazepam (Lorazepam), 1 MG PO TID PRN for Anxiety Ondansetron Hcl (Zofran), 4 MG PO Q8 PRN for Nausea Tramadol (Ultram), 50 MG PO Q6H PRN for Pain Allergies Coded Allergies: No Known Allergies (Unverified , 03/12/17) PER PATIENT Physical Exam Vital Signs Date Time Temp Pulse Resp B/P (MAP) Pulse Ox O2 Delivery O2 Flow Rate FiO2 05/01/17 21:52 87 20 120/75 100 Nebulizer 05/01/17 20:27 36.6 97 20 134/78 98 Nasal Cannula 2.0 Physical Exam GENERAL: Patient is awake, alert, and in no acute distress. Patient is resting comfortably and showing no signs of anxiety EYES: The conjunctivae are clear. The pupils are round and reactive. EARS, NOSE, MOUTH AND THROAT: The nose is without any evidence of any deformity. Mucous membranes are moist tongue is midline NECK: The neck is nontender and supple. RESPIRATORY: Sounds diminished throughout with expiratory wheezing in all becerra , no tachypnea or conversational dyspnea was appreciated CARDIOVASCULAR: Regular rate and rhythm noted there no murmurs rubs or gallops normal S1 normal S2 GASTROINTESTINAL: The abdomen is soft. Bowel sounds are present in all quadrants. Abdomen is nontender MUSCULOSKELETAL/EXTREMITIES: There is no evidence of gross deformity full range of motion is noted in the hips and shoulders SKIN: There is no obvious evidence of any rash. There are no petechiae, pallor or cyanosis noted. NEUROLOGIC: Patient is awake alert and oriented x3 strength is symmetric patellar reflexes are 2+ bilaterally Medical Decision & Procedures ER Provider Diagnostic Interpretation: Radiology results as stated below per my review and radiologist interpretation: CHEST 2 VIEWS ROUTINE CLINICAL HISTORY: 67 years-old Female presenting with cough for 1 week. TECHNIQUE: PA and lateral views of the chest were obtained. COMPARISON: 02/26/2017. FINDINGS: Cardiomediastinal silhouette normal. Lungs and pleural spaces clear. Osseous structures normal. Upper abdomen normal. IMPRESSION: 1. No acute cardiopulmonary disease. Electronically signed by: Diogenes Moreau M.D. 05/01/2017 9:17 PM Dictated Date/Time: 05/01/2017 9:16 PM Laboratory Results Test 05/01/17 20:40 Influenza Type A (RT-PCR) Neg for Influ A (NEG) Influenza Type B (RT-PCR) Neg for Influ B (NEG) Laboratory results per my review. Medications Administered Medications (Trade) Dose Ordered Sig/Edis Route Start Time Stop Time Status Last Admin Dose Admin Albuterol/ Ipratropium (Duoneb) 3 ml NOW STAT INH 05/01/17 20:34 05/01/17 20:35 DC 05/01/17 20:40 3 ML Prednisone (PredniSONE TAB) 60 mg NOW STAT PO 05/01/17 20:34 05/01/17 20:35 DC 05/01/17 20:40 60 MG Azithromycin (Zithromax Tab) 500 mg NOW STAT PO 05/01/17 21:37 05/01/17 21:38 DC 05/01/17 21:49 500 MG Albuterol/ Ipratropium (Duoneb) 3 ml NOW STAT INH 05/01/17 21:37 05/01/17 21:38 DC 05/01/17 21:49 3 ML ED Course 2031: The patient was evaluated in room A9. A complete history and physical examination were performed. 2033: Prednisone 60 mg PO Duoneb 3 ml INH 2136: Duoneb 3 ml INH Zithromax Tab 500 mg PO 2157: Upon reevaluation, the patient is feeling a lot better. I discussed the results and treatment plan with her. She verbalized agreement of the treatment plan. She was discharged home. Medical Decision Prior records/ancillary studies reviewed. Triage Nursing notes reviewed. The patient's history was concerning for respiratory difficulties. Differential diagnosis: Etiologies such as infections, reactive airway disease, pneumonia, pneumothorax , COPD, CHF, cardiac ischemia, pulmonary embolism, musculoskeletal, gastrointestinal, as well as others were entertained. The patient is a 67-year-old female who presented to the emergency department for an evaluation of cough and shortness of breath. The patient has a history of COPD and has had bronchitis in the past. She started taking her rescue pack last week. She finished a course of Levaquin. She has also started to decrease her steroid dose. The patient appeared to have a history of physical exam consistent with bronchospasm. She was treated with bronchodilator therapy. She was also given oral steroid therapy. The patient's chest x-ray did not reveal any definite pneumonia. She was started on antibiotics for bronchitis. I encouraged her to rest and avoid any strenuous activity. She was treated with multiple bronchodilator nebulizers. On subsequent reevaluation she was somewhat improved and her breath sounds had definitely improved to my evaluation. She was encouraged to call her primary tuyere fitter in the morning to schedule a follow-up appointment. She was also encouraged to rest and avoid any strenuous activity. I also recommended that she return to the emergency department immediately if symptoms change worsen or if the need arises. Medication Reconcilliation Current Medication List: was personally reviewed by me Blood Pressure Screening Patient's blood pressure: Normal blood pressure Blood pressure disposition: Did not require urgent referral Impression Primary Impression: COPD exacerbation Additional Impression: Bronchitis Scribe Attestation The scribe's documentation has been prepared under my direction and personally reviewed by me in its entirety. I confirm that the note above accurately reflects all work, treatment, procedures, and medical decision making performed by me. Departure Information Dispostion Home / Self-Care Prescriptions Prednisone (Prednisone Tab) 20 Mg Tab 40 MG PO DAILY, #10 TAB Prov: Jose Carlos Yo, DO 05/01/17 Azithromycin (Zithromax) 250 Mg Tab 250 MG PO DAILY, #4 TAB Prov: Jose Carlos Yo, DO 05/01/17 Referrals [place] MD (PCP) Forms HOME CARE DOCUMENTATION FORM, IMPORTANT VISIT INFORMATION Patient Instructions My [facility] Additional Instructions Continue all medications as prescribed. Rest and avoid any strenuous activity. Call your primary tuyere fitter in the morning to schedule follow-up appointment. Return to the emergency department immediately if symptoms change worsen his arises. Problem Qualifiers
--- NOTE | 2017-05-01 21:18 | DIAGNOSTIC IMAGING REPORT ---
CHEST 2 VIEWS ROUTINE CLINICAL HISTORY: 67 years-old Female presenting with cough for 1 week. TECHNIQUE: PA and lateral views of the chest were obtained. COMPARISON: 02/26/2017. FINDINGS: Cardiomediastinal silhouette normal. Lungs and pleural spaces clear. Osseous structures normal. Upper abdomen normal. IMPRESSION: 1. No acute cardiopulmonary disease. Electronically signed by: Diogenes Moreau M.D. 05/01/2017 9:17 PM Dictated Date/Time: 05/01/2017 9:16 PM
[2017-05-01 21:24] LABS: INFLUENZA A PCR Neg for Influ A (NEG); INFLUENZA B PCR Neg for Influ B (NEG)
[2017-05-01] MEDS ORDERED: AZITHROMYCIN 250 MG TAB PO STA (21:37)
[2017-05-01] MEDS ORDERED: PRED20TA2 PO (21:46)
[2017-05-01] MEDS ORDERED: AZIT250T PO (21:46)
[2017-05-01 21:52] VITALS: BP 120/75; PULSE 87; O2SAT 100
== END 2017-05-01 22:07 | disposition home or self-care (01) ==
LOC: C.EDB 20:23 → C.EDA 22:07
DX: J44.1 Chronic obstructive pulmonary disease with (acute) exacerbation (principal); J40 Bronchitis, not specified as acute or chronic; I10 Essential (primary) hypertension; K21.9 Gastro-esophageal reflux disease without esophagitis; E78.5 Hyperlipidemia, unspecified; Z87.891 Personal history of nicotine dependence; Z99.81 Dependence on supplemental oxygen; Z90.89 Acquired absence of other organs; Z83.2 Family history of diseases of the blood and blood-forming organs and certain disorders involving the immune mechanism; Z82.49 Family history of ischemic heart disease and other diseases of the circulatory system; Z83.6 Family history of other diseases of the respiratory system

== ENCOUNTER → 2017-05-17 | Outpatient (CLI) | payer OTHER ==
[~2017-05-17] MED LIST changes: +AZIT250T PO; -OXYC1TAB3 PO; +PRED20TA2 PO
--- NOTE | 2017-05-17 07:52 | DIAGNOSTIC IMAGING REPORT ---
(CHEST) THORAX WITHOUT CLINICAL HISTORY: Persistent cough COMPARISON STUDY: 08/16/2016 CT DOSE: 221.07 mGy.cm TECHNIQUE: CT of the thorax was performed from the thoracic inlet to the lung bases. Images are reviewed in the axial, sagittal, and coronal planes. IV contrast was not administered for this examination. A dose lowering technique was utilized adhering to the principles of ALARA. FINDINGS: Thyroid: Imaged portions of the thyroid gland are normal in appearance. Thoracic aorta: There is mild dilatation of the ascending thoracic aorta which measures 4 cm. Heart: There are minimal coronary artery calcifications. There is trace pericardial fluid. Lungs and pleural spaces: There are no pleural effusions. There is no focal pulmonary consolidation. There are bilateral tiny apical nodules, unchanged the prior study and likely postinflammatory. Also evident is a stable 3 mm pulmonary nodule within the right lower lobe. Mediastinum: There is no mediastinal lymphadenopathy. Kathleen: There is no evidence of pathologic hilar adenopathy given the limitations of a noncontrast study Axilla: There is no evidence of pathologic axillary lymphadenopathy Upper abdomen: Partially visualized upper abdominal viscera is within normal limits. Skeletal structures: There are no lytic or blastic osseous lesions. IMPRESSION: 1. No significant change from the preceding study. 2. Mild dilatation of the ascending thoracic aorta which measures 4 cm 3. No evidence of pathologic adenopathy 4. Stable tiny pulmonary nodules most pronounced within the lung apices. The largest measures 3 mm. These are statistically postinflammatory Electronically signed by: Rosas Briggs M.D. 05/17/2017 7:50 AM Dictated Date/Time: 05/17/2017 7:45 AM
== END | disposition home or self-care (01) ==
LOC: C.CTS 07:32
PROVIDERS: ATTEND Physician Assistant
DX: R05 Cough (principal); R91.8 Other nonspecific abnormal finding of lung field

== ENCOUNTER 2017-05-29 15:16 | Inpatient (IN) | payer OTHER ==
[~2017-05-29] VITALS: Ht 172.7 cm; Wt 73.9 kg
[~2017-05-29 15:16] MED LIST changes: -AZIT250T PO
[2017-05-29 16:00] VITALS: BP 138/70; PULSE 103; TEMP 36.7; O2SAT 91
[2017-05-29 16:48] VITALS: BP 138/70; PULSE 103; TEMP 36.7; Ht 172.7 cm; Wt 73.9 kg
[2017-05-29] MEDS ORDERED: ACETAMINOPHEN 325 MG TAB PO PRN (17:15)
[2017-05-29] MEDS ORDERED: AZITHROMYCIN 250 MG TAB PO ONE (17:29)
[2017-05-29 17:59] LABS: BASO % 0.1 %; BASO ABS # 0.01 K/uL (0-0.2); EOS % 0.1 %; EOS ABS # 0.01 K/uL (0-0.5); HEMATOCRIT 32.7 % (37-47); HEMOGLOBIN 10.6 g/dL (12.0-16.0); IG# 0.03 K/uL (0.00-0.02); LYMPH ABS # 0.99 K/uL (1.2-3.4); MEAN CELL VOLUME 79.4 fL (80-100); MEAN CORPUSCULAR HEMOGLOBIN 25.7 pg (25-34); MEAN PLATELET VOLUME 8.6 fL (7.4-10.4); MONO % 2.7 %; NEUT % 87.8 %; NEUT ABS # 9.71 K/uL (1.4-6.5); PLATELET COUNT 317 K/uL (130-400); RED CELL DISTRIBUTION WIDTH CV 17.1 % (11.5-14.5); RED CELL DISTRIBUTION WIDTH SD 49.7 fL (36.4-46.3); WHITE BLOOD COUNT 11.05 K/uL (4.8-10.8)
[2017-05-29 18:13] LABS: INR 0.9 (0.9-1.1); PTT PATIENT 23.5 SECONDS (21.0-31.0)
[2017-05-29] MEDS: CEFTRIAXONE SOD INJ 1 GM in DEXTROSE 5% ADD-VANTAGE 50ML 50 ML IV SCH (18:16)
[2017-05-29] MEDS: METHYLPREDNISOLONE IV 40 MG in SYRINGE 0 ML IV SCH (18:16)
--- NOTE | 2017-05-29 18:17 | DIAGNOSTIC IMAGING REPORT ---
CHEST 2 VIEWS ROUTINE HISTORY: chronic cough COMPARISON: Chest 05/01/2017. FINDINGS: Healing right anterior fifth and sixth rib fractures are again noted. The lungs are clear. The heart is normal in size. No pleural effusions. No pneumothorax. IMPRESSION: No acute process. Electronically signed by: Livan Torres M.D. 05/29/2017 6:15 PM Dictated Date/Time: 05/29/2017 6:12 PM
[2017-05-29 18:25] LABS: CREATININE 0.86 mg/dl (0.60-1.20)
[2017-05-29 18:26] LABS: CALCIUM 8.7 mg/dl (8.5-10.1); POTASSIUM 3.4 mmol/L (3.5-5.1)
[2017-05-29 18:45] LABS: MEAN CORPUSCULAR HGB CONC 32.4 g/dl (32-36)
[2017-05-29] MEDS: BUDESONIDE 0.5 MG/2 ML VIAL (PULMICORT) INH SCH (19:40)
[2017-05-29] MEDS: ALBUT/IPRATROP 3MG/0.5MG NEB 3 ML VIAL INH SCH (19:40)
[2017-05-29 19:41] VITALS: PULSE 82; O2SAT 96
[2017-05-29] MEDS ORDERED: POTASSIUM CHLORIDE 20 MEQ TABCR PO ONE (20:00)
[2017-05-29] MEDS: GUAIFENESIN 600 MG TABCR PO SCH (20:04)
[2017-05-29] MEDS: PANTOprazole SOD 40 MG TAB PO SCH (20:05)
[2017-05-29] MEDS: CHOLECALCIFEROL 1000 INTER.UNIT TAB PO SCH (20:05)
[2017-05-29] MEDS: RANITIDINE HCL 150 MG TAB PO SCH (20:05)
[2017-05-29] MEDS: ASCORBIC ACID 500 MG TAB PO SCH (20:05)
[2017-05-29] MEDS: SERTRALINE HCL 100 MG TAB PO SCH (20:06)
[2017-05-29] MEDS: ATORVASTATIN 10 MG TAB PO SCH (20:06)
[2017-05-29] MEDS: NYSTATIN SUSP 500,000 U/5 ML UDC PO SCH (20:06)
[2017-05-29] MEDS: TIOTROPIUM BROMIDE-OLODATEROL 2.5-2.5MCG/ACT INH SCH (20:07)
[2017-05-29] MEDS ORDERED: IV FLUIDS COMPLETED PRN (21:00)
[2017-05-29] MEDS ORDERED: [UNRECOGNIZED DRUG - OTHER] INH SCH (21:00)
--- NOTE | 2017-05-29 21:40 | History and Physical ---
History & Physical Date & Time of Service: May 29, 2017 at 20:40 Chief Complaint: COPD Primary Care Physician: [place] Clem[place] MD History of Present Illness Source: patient, clinic records, hospital records Mar Em is a 67 year old female with moderate COPD who presents as a direct admission from pulmonology office (Dr Casper) due to slowly progressively worsening shortness of breath and cough. Her cough is mostly dry with occasional clear phlegm production. It is associated with her shortness of breath and can come on at rest and on exertion. She denies any chest pain, orthopnea, PND, palpitations or claudication. History of aspiration pneumonia recorded on her problem list but she denies any significant choking episodes. In the past year she has had 4 ER visits and was admitted 3 times for COPD exacerbation. Most recently she was treated with a course of levofloxacin and prednisone on May 09 which she reports did not help. She had a CT chest May 17 2017 - . No significant change from the preceding study, mild dilatation of the ascending thoracic aorta which measures 4 cm, no evidence of pathologic adenopathy, stable tiny pulmonary nodules most pronounced within the lung apices (the largest measures 3 mm - statistically postinflammatory). Esophageal XR on Feb showed - small lobular filling defect within the right vallecula and mild esophageal dysmotility. Bronchoscopies completed 01/24/16, 06/06/16, 08/23/16 (rare celena), 12/18/2016 notable for dynamic airway collapse but otherwise unremarkable. She reports no significant improvement following any of the bronchoscopies. PFTs 04/13/17 - mild reversible obstructive spirometry with hyperinflation and moderate reduction in DLCO (Dr. Casper). Past Medical/Surgical History Medical Problems: (1) Acute bronchitis (2) Acute bronchitis (3) Acute bronchitis (4) Alcohol dependence in remission (5) Benign neoplasm of colon (6) Bronchitis (7) Chest wall pain (8) Chronic bronchitis (9) Chronic respiratory failure with hypoxia (10) COPD (chronic obstructive pulmonary disease) (11) COPD exacerbation (12) COPD exacerbation (13) COPD exacerbation (14) COPD exacerbation (15) COPD exacerbation (16) COPD exacerbation (17) COPD exacerbation (18) COPD exacerbation (19) COPD, moderate (20) Cough (21) Cough (22) Cystic Kidney Disease, Unspecified (23) Dizzy (24) Dysfunctional gallbladder (25) Excessive dynamic airway collapse (26) Fever (27) GERD (gastroesophageal reflux disease) (28) History of aspiration pneumonia (29) Hyperlipidemia (30) Hypertension Nos (31) Hypokalemia (32) IBS (irritable bowel syndrome) (33) Obstructive sleep apnea (34) PUD (peptic ulcer disease) (35) Right-sided chest wall pain (36) Rotator cuff insufficiency of left shoulder (37) Shortness of breath (38) Thoracic aortic ectasia (39) Urinary tract infection (40) CALE II (vulvar intraepithelial neoplasia II) (41) Vomiting and diarrhea Surgical Problems: (1) H/O cervical spine surgery (2) H/O colonoscopy (3) H/O hysterectomy with oophorectomy (4) History of cataract surgery (5) S/P appendectomy (6) S/P bronchoscopy (7) S/p exploration of abdomen (8) S/p left sided discectomy, L3-4 (9) S/P lumbar spinal fusion (10) S/p lumbar spine revision (11) S/P tonsillectomy Family History Blood clots MOTHER Cardiac disorder BROTHER (congenital heart disease) FH: CHF (congestive heart failure) MOTHER FH: heart disease MOTHER GRANDMOTHER FH: lung disease Hypertension Social History Smoking Status: Former Smoker (1.5ppd for 52 years, quit 2013) Marital Status: single Occupational Status: retired Immunizations History of Influenza Vaccine: Yes Influenza Vaccine Date: Dec 16, 2015 History of Tetanus Vaccine?: Yes Tetanus Immunization Date: Sep 08, 2009 History of Pneumococcal: Yes Pneumococcal Date: Mar 17, 2014 Allergies Coded Allergies: No Known Allergies (Unverified , 03/12/17) PER PATIENT Home Medications Scheduled Alendronate Sodium (Fosamax), 1 TAB PO WK Ascorbic Acid (Vitamin C), 1 CAP PO HS Atorvastatin (Lipitor), 10 MG PO HS Budesonide (Inhalation) (Pulmicort Respules 0.5MG/2ML), 2 ML INH BID Cholecalciferol (Vitamin D), 1 TAB PO QAM Cholecalciferol (Vitamin D), 1 TAB PO HS Furosemide (Furosemide), 20 MG PO QAM Home O2 Therapy (Oxygen), 2 LITERS NA CONT Ipratropium-Albuterol (Duoneb), 3 ML INH QID Nystatin (Nystatin Suspension), 5 ML PO DIRECTED Pantoprazole (Protonix), 40 MG PO BID Potassium Ext Rel (Klor-Con), 20 MEQ PO QAM Prednisone (Prednisone Tab), 40 MG PO DAILY Ranitidine HCl (Ranitidine HCl), 150 MG PO BID Roflumilast (Daliresp), 1 TAB PO QAM Sertraline (Zoloft), 100 MG PO HS Tiotropium [place]-Olodaterol (Stiolto Respimat 2.5-2.5 Mcg/Act), 2 SPRAYS INH BID Scheduled PRN Albuterol Hfa (Ventolin Hfa), 2 PUFFS INH Q6H PRN for Shortness of Breath Clobetasol Propionate (Temovate), 1 APPLN TOP BID PRN for psoriasis Guaifenesin/Codeine (Robitussin-Ac Syrup), 5 ML PO Q4H PRN for Cough Lorazepam (Lorazepam), 1 MG PO TID PRN for Anxiety Ondansetron Hcl (Zofran), 4 MG PO Q8 PRN for Nausea Tramadol (Ultram), 50 MG PO Q6H PRN for Pain Review of Systems All systems reviewed and otherwise negative other than HPI Physical Exam Vital Signs Date Time Temp Pulse Resp B/P (MAP) Pulse Ox O2 Delivery O2 Flow Rate FiO2 05/29/17 19:41 82 18 96 Nasal Cannula 2.0 05/29/17 16:48 36.7 103 20 138/70 Room Air 91 05/29/17 16:00 36.7 103 20 138/70 (92) 91 Room Air General Appearance: WD/WN, no apparent distress Head: normocephalic, atraumatic Eyes: PERRL ENT: pharynx normal (no thrush) Neck: no adenopathy, no JVD Respiratory/Chest: chest non-tender, normal breath sounds (limited by coughing but no wheeze or crackles noted), no respiratory distress, no accessory muscle use Cardiovascular: regular rate, rhythm, no JVD, no murmur, normal peripheral pulses Abdomen/GI: normal bowel sounds, non tender, soft Extremities/Musculoskelatal: no calf tenderness (calves equal), normal capillary refill, no pedal edema Neurologic/Psych: no motor/sensory deficits (grossly normal), alert Skin: normal color, warm/dry, no rash Diagnostics Laboratory Results Results Past 24 Hours Test 05/29/17 17:44 Range/Units White Blood Count 11.05 4.8-10.8 K/uL Red Blood Count 4.12 4.2-5.4 M/uL Hemoglobin 10.6 12.0-16.0 g/dL Hematocrit 32.7 37-47 % Mean Corpuscular Volume 79.4 80-100 fL Mean Corpuscular Hemoglobin 25.7 25-34 pg Mean Corpuscular Hemoglobin Concent 32.4 32-36 g/dl Platelet Count 317 130-400 K/uL Mean Platelet Volume 8.6 7.4-10.4 fL Neutrophils (%) (Auto) 87.8 % Lymphocytes (%) (Auto) 9.0 % Monocytes (%) (Auto) 2.7 % Eosinophils (%) (Auto) 0.1 % Basophils (%) (Auto) 0.1 % Neutrophils # (Auto) 9.71 1.4-6.5 K/uL Lymphocytes # (Auto) 0.99 1.2-3.4 K/uL Monocytes # (Auto) 0.30 0.11-0.59 K/uL Eosinophils # (Auto) 0.01 0-0.5 K/uL Basophils # (Auto) 0.01 0-0.2 K/uL RDW Standard Deviation 49.7 36.4-46.3 fL RDW Coefficient of Variation 17.1 11.5-14.5 % Immature Granulocyte % (Auto) 0.3 % Immature Granulocyte # (Auto) 0.03 0.00-0.02 K/uL Prothrombin Time 9.7 9.0-12.0 SECONDS Prothromb Time International Ratio 0.9 0.9-1.1 Activated Partial Thromboplast Time 23.5 21.0-31.0 SECONDS Partial Thromboplastin Ratio 0.9 Sodium Level 141 136-145 mmol/L Potassium Level 3.4 3.5-5.1 mmol/L Chloride Level 103 98-107 mmol/L Carbon Dioxide Level 32 21-32 mmol/L Anion Gap 6.0 3-11 mmol/L Blood Urea Nitrogen 16 7-18 mg/dl Creatinine 0.86 0.60-1.20 mg/dl Est Creatinine Clear Calc Drug Dose 63.1 ml/min Estimated GFR () 80.5 Estimated GFR (Non- 69.4 BUN/Creatinine Ratio 18.5 10-20 Random Glucose 101 70-99 mg/dl Calcium Level 8.7 8.5-10.1 mg/dl Diagnostic Radiology CHEST 2 VIEWS ROUTINE HISTORY: chronic cough COMPARISON: Chest 05/01/2017. FINDINGS: Healing right anterior fifth and sixth rib fractures are again noted. The lungs are clear. The heart is normal in size. No pleural effusions. No pneumothorax. IMPRESSION: No acute process. Electronically signed by: Livan Torres M.D. 05/29/2017 6:15 PM Dictated Date/Time: 05/29/2017 6:12 PM Impression Assessment and Plan 67 year old female admitted directly from pulmonology office for chronic cough, shortness of breath need for possible bronchoscopy Chronic cough and shortness of breath - no hypoxia on admission - COPD vs. postnasal drip vs. GERD vs. recurrent aspirations - discussed with Dr Casper and advised treating with ceftriaxone, azithromycin and IV Solu-medrol 40mg Q8H for COPD - Will get labs and CXR - NPO after midnight for possible bronchoscopy in morning - consider ENT or speech assessment following bronchoscopy - Small lobular filling defect within the right vallecula on esophageal XR. Mild esophageal dysmotility. COPD - Duonebs, methylprednisone as above - continue ELÍAS - mild AHI 5.4 - can use her own machine at night GERD / Hx peptic ulcer - continue ranitidine and pantoprazole Hx oral thrush - will continue her chronic nystatin given we are starting antibiotics Resident Physician Supervision Note: I interviewed and examined the patient. Discussed with Dr. Viral Dumont and agree with findings and plan as documented in the note. 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
[2017-05-29] MEDS: LORAZEPAM 1 MG TAB PO PRN (23:32)
[2017-05-29 23:36] VITALS: BP 130/71; PULSE 77; TEMP 36.5; O2SAT 96
[2017-05-30] VITALS (15 sets, daily range): BP systolic 107–155; BP diastolic 64–84; PULSE 72–93; TEMP 36.6–37; O2SAT 92–99
[2017-05-30] MEDS: BENZONATATE 100MG CAP PO PRN ×3 (01:05→22:27)
[2017-05-30] MEDS: FLUTICASONE PROPIONATE NA SPR 16 GM BTL PRN (01:06)
[2017-05-30] MEDS: METHYLPREDNISOLONE IV 40 MG in SYRINGE 0 ML IV SCH ×3 (01:50→17:50)
--- NOTE | 2017-05-30 06:50 | Pulmonary Consultation ---
History General Date of Service: May 30, 2017. Stated Complaint: COPD HPI The patient is a 67 year old female who presents to [facility] with complaints of COPD. The patient's primary care provider is [place] Clem[place] MD. 67-year-old female admitted for acute on chronic COPD/bronchiectatic exacerbation refractory to outpatient treatment. She has significant PmHx: Severe COPD, chronic bronchiectasis, esophageal dysmotility, hypertension, irritable bowel syndrome, possible alcohol abuse, chronic cystic kidney disease , GERD, possible aspiration pneumonia, peptic ulcer disease, sleep apnea, aortic ectasia (4cm). Patient also with a history of tobacco use 0.5 packs per day for 52 year history quit June of 2013. Patient has undergone multiple bronchoscopies performed 01/24/2016, 06/06/2016, 08/23/2016 and December 2016 with evidence of EDAC. Patient was seen by Dr. Ming Casper on 05/29/2017 and due to her increasing shortness of breath and failure to respond to: Solu- Medrol, levofloxacin 750 mg, Mucinex and prednisone taper. Patient notes she has been having increasing cough with associated shortness of breath and only minimal mucus secretion. She continues to note this increases with lying flat but denies any gregg aspiration episodes. She also denies fever , chills, chest pain, pleurisy or classic cardiac chest pain as well as unintentional weight loss or B type symptoms. Current treatment 1. Daliresp 500 micrograms daily 2. Azithromycin 500 mg daily 3. Flonase 1 spray each nostril b.i.d. 4. Tessalon Perles 100 mg t.i.d. 5. Protonix 40 mg b.i.d. 6. Ranitidine 150 mg b.i.d. 7. Stiolto Respimat 5 micrograms b.i.d. 8. Budesonide nebulized b.i.d. 9. Duo nebs q.i.d. 10. Ceftriaxone 1 gram Q 24 11. Methylprednisolone 40 mg q.8 hours 12. Ventolin HFA 2 puffs q.[address] thorax 05/17/2017 compared to 08/16/2016 Stable tiny pulmonary nodules largest measuring 3 mm Ascending aortic aneurysm 4 cm CXR 05/29/2017: Compared to previous image from 05/01/2017 Possible increase infiltrative process right lower lobe Barium swallow 04/10/2017 Small lobar filling defect within the right vallecula. Could possibly represent a small nodule, direct visualization is recommended. Mild esophageal dysmotility Active Problems 1. 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 CKD (chronic kidney disease) (N18.9) 3. Sever COPD (FEV1: 48%) with chronic bronchitis 4. Cough (R05) 5. Esophageal dysmotility (K22.4) 6. GERD without esophagitis (K21.9) 7. Hyperlipemia (E78.5) 8. Hypertension (I10) 9. Irritable bowel syndrome (K58.9) 10. Mild sleep apnea (G47.30) 11. Oral thrush (B37.0) 12. ELÍAS (AHI: 5.4-CPAP) 13. Peptic ulcer (K27.9) 14. Pneumonia (J18.9) 15. Pulmonary nodule (R91.1) 16. Thoracic aortic ectasia (I77.810) 17. Alcohol abuse/dependence Past Medical History 1. History of Alcohol abuse, in remission (F10.11) 2. History of Aspiration pneumonia (J69.0) Surgical History 1. History of Appendectomy 2. History of Arthrodesis Lumbar 3. History of Bronchoscopy (Diagnostic) 4. History of Cataract Extraction 5. History of Cervical Vertebral Fusion 6. History of Hysterectomy 7. History of Post Spinal Diskectomy, Osteophytectomy Lumbar Interspace 8. History of Tonsillectomy Family History 1. Family history of CHF (congestive heart failure) 2. Family history of blood clots (Z82.49) 3. Family history of Heart disease 4. Family history of Hypertension 5. Family history of Lung disease Social History Former consumption of alcohol (Z87.898) Former smoker (Z87.891) Current Meds 1. Budesonide 0.5 MG/2ML Inhalation Suspension; USE 1 UNIT DOSE VIA NEBULIZER TWO TIMES A DAY 2. Ipratropium-Albuterol 0.5-2.5 (3) MG/3ML Inhalation Solution; USE 1 UNIT DOSE IN NEBULIZER 4 TIMES DAILY 3. PredniSONE 10 MG Oral Tablet; Take 4 tablets for 2 days then decrease by 1/ 2 tablet Therapy: 28Apr2016 to (Last Rx:[id number]) Requested for: [id number] Ordered 4. PredniSONE 10 MG Oral Tablet; TAKE 4 TABS ONCE DAILY X3 DAYS, 3 TABS DAILY X3 DAYS, 2 TABS DAILY X3DAYS, THEN 1 TAB DAILY X3 DAYS THEN STOP Requested for: 5. Stiolto Respimat 2.5-2.5 MCG/ACT Inhalation Aerosol Solution; 2 puffs daily Requested 6. Ventolin HFA 108 (90 Base) MCG/ACT Inhalation Aerosol Solution; INHALE 2 PUFFS 4 7. Daliresp 500 MCG Oral Tablet; TAKE 1 TABLET DAILY Requested for: [id number] ; Last 8. Pantoprazole Sodium 40 MG Oral Tablet Delayed Release; TAKE ONE TABLET BY 9. RaNITidine HCl - 150 MG Oral Tablet; TAKE 1 TABLET EVERY 12 HOURS DAILY; 10. Nystatin 096611 UNIT/ML Mouth/Throat Suspension; SWISH AND SWALLOW 5 ML 3 11. Atorvastatin Calcium 10 MG Oral Tablet; TAKE 1 TABLET DAILY; 12. Fosamax 70 MG Oral Tablet; TAKE 1 TABLET ONCE WEEKLY; 13. Furosemide 20 MG Oral Tablet; TAKE 1 TABLET DAILY; 14. LORazepam 1 MG Oral Tablet; TAKE 1 TABLET 3 TIMES DAILY NEEDED; 15. Potassium Chloride 20 MEQ TBCR; TAKE 1 TABLET DAILY; 16. Sertraline HCl - 100 MG Oral Tablet; Take 1 tablet daily; 17. TiZANidine HCl - 4 MG Oral Capsule; 1/2 tab Q 6 hrs; 18. Vitamin C 500 MG Oral Tablet; TAKE 1 TABLET DAILY; 19. Vitamin D3 1000 UNIT Oral Capsule; TAKE 2 CAPSULES EVERY AM AND 1 CAPSULE 20. Zofran 4 MG Oral Tablet; TAKE 1 TABLET Every 4 hours PRN nausea; Current Orders 1. CT (Chest) Thorax w/o Contrast; Requested for:[id number]; Department : [facility] Allergies 1. No Known Drug Allergies Historian: patient, EMS Review of Systems Constitutional: reports: weakness Eyes: reports: no symptoms ENT: reports: rhinorrhea Cardiovascular: reports: no symptoms Respiratory: reports: as stated in HPI Gastrointestinal: reports: as stated in HPI Genitourinary - Female: reports: as stated in HPI Musculoskeletal: reports: as stated in HPI Integumentary: reports: as stated in HPI Neurologic: reports: as stated in HPI Psychiatric: reports: as stated in HPI Endocrine: as stated in HPI Hematologic / Lymphatic: as stated in HPI Allergic / Immunologic: as stated in HPI Past Medical History Past Medical History: Please refer to HPI Past Surgical History: Please refer to HPI Family History Blood clots MOTHER Cardiac disorder BROTHER (congenital heart disease) FH: CHF (congestive heart failure) MOTHER FH: heart disease MOTHER GRANDMOTHER FH: lung disease Hypertension Please refer to HPI Social History Please refer to HPI Hx Tobacco Use In Past Year?: No Smoking Status: Former Smoker (1.5ppd for 52 years, quit 2013) Alcohol: history of alcohol abuse Drug Use: none Marital status: single Occupational Status: retired Immunizations History of Influenza Vaccine: Yes Influenza Vaccine Date: Dec 16, 2015 History of Tetanus Vaccine?: Yes Tetanus Immunization Date: Sep 08, 2009 History of Pneumococcal: Yes Pneumococcal Date: Mar 17, 2014 Allergies Coded Allergies: No Known Allergies (Unverified , 03/12/17) PER PATIENT Current Medications Reported Home Medications Medications Dose Route/Sig Max Daily Dose Days Date Category Dose Instructions Prednisone Tab (Prednisone) 20 Mg Tab 40 Mg PO DAILY 05/01/17 Rx Ventolin Hfa (Albuterol) 200 Puffs/08773 Mcg Aers 2 Puffs INH Q6H PRN 03/12/17 Reported Pulmicort Respules 0.5MG/2ML (Budesonide (Inhalation)) 0.5 Mg/2 Ml Enedina 2 Ml INH BID 03/12/17 Reported Vitamin C (Ascorbic Acid) 500 Mg Cap 1 Cap PO HS 03/12/17 Reported Oxygen Gas 2 Liters NA CONT 03/12/17 Reported Nystatin Suspension (Nystatin) 1 Ml Susp 5 Ml PO DIRECTED 03/12/17 Reported Stiolto Respimat 2.5-2.5 Mcg/Act (Tiotropium [place]-Olodaterol) 1 Aer Aer 2 Sprays INH BID 03/12/17 Reported Daliresp (Roflumilast) 500 Mcg Tab 1 Tab PO QAM 03/12/17 Reported Vitamin D (Cholecalciferol) 1,000 Unit Tab 1 Tab PO HS 03/12/17 Reported Vitamin D (Cholecalciferol) 2,000 Unit Tab 1 Tab PO QAM 03/12/17 Reported Zoloft (Sertraline HCl) 100 Mg Tab 100 Mg PO HS 12/14/16 Reported Temovate (Clobetasol Propionate) 0.05 % Cre 1 Appln TOP BID PRN 14 12/14/16 Reported Fosamax (Alendronate Sodium) 70 Mg Tab 1 Tab PO WK 28 12/14/16 Reported TAKES ON MON Robitussin-Ac Syrup (Codeine Phosphate/Guaifenesin) Syrp 5 Ml PO Q4H PRN 4 12/14/16 Reported Zofran (Ondansetron HCl) 4 Mg Tab 4 Mg PO Q8 PRN 06/06/16 Reported Protonix (Pantoprazole Sodium) 40 Mg Tab 40 Mg PO BID 03/13/16 Reported Klor-Con (Potassium Chloride) 20 Meq Tabcr 20 Meq PO QAM 12/26/15 Reported Lorazepam 1 Mg Tab 1 Mg PO TID PRN 10/21/15 Reported Ranitidine HCl 150 Mg Tab 150 Mg PO BID 10/21/15 Reported Lipitor (Atorvastatin Calcium) 10 Mg Tab 10 Mg PO HS 10/21/15 Reported Furosemide 20 Mg Tab 20 Mg PO QAM 10/21/15 Reported Duoneb (Ipratropium-Albuterol) 3 Ml Nebu 3 Ml INH QID 09/25/15 Reported Ultram (Tramadol HCl) 50 Mg Tab 50 Mg PO Q6H PRN 09/25/15 Reported Physical Physical Exam Vital Signs: Date Time Temp Pulse Resp B/P (MAP) Pulse Ox O2 Delivery O2 Flow Rate FiO2 05/30/17 00:10 Room Air 2.0 05/29/17 23:36 36.5 77 20 130/71 (90) 96 Room Air 05/29/17 19:41 82 18 96 Nasal Cannula 2.0 05/29/17 16:48 36.7 103 20 138/70 Room Air 91 05/29/17 16:00 36.7 103 20 138/70 (92) 91 Room Air General Appearance: uncomfortable, severe distress Head: NORMOCEPHALIC, ATRAUMATIC Eyes: PERRLA, NO DISCHARGE, EOMI, SCLERAE NORMAL ENT: NORMAL EAR EXAM, NORMAL NASAL EXAM, NORMAL MOUTH EXAM, NORMAL THROAT EXAM , NORMAL DENTAL EXAM Neck: NORMAL RANGE OF MOTION, NO TENDERNESS, TRACHEA MIDLINE, NO STRIDOR Respiratory: BREATH SOUNDS NORMAL, CLEAR TO AUSCULTATION Cardiovasular: REGULAR RATE/RHYTHM, NORMAL S1S2, NO M/G/R, NO MURMUR Abdomen: NON TENDER, NORMAL BOWEL SOUNDS, NO REBOUND, NO MASSES, NO GUARDING Genitourinary - Female: EXTERNAL GENITALIA NORMAL Back: NORMAL INSPECTION, NO MIDLINE TENDERNESS, NO CVA TENDERNESS Upper Extremities: NO EDEMA, NO DEFORMITY, NORMAL ROM Lower Extremities: NO EDEMA, NO DEFORMITY, NORMAL ROM Pulses: carotid (R) (2+), carotid (L) (2+), posterior tibial (R), posterior tibial (L) (2+) Neuro: ALERT, NORMAL SENSATION, NORMAL CEREBELLAR EXAM Reflexes: biceps (R) (2+), bicpes (L) (2+), achilles (R) (2+), achilles (L) (2+ ) Babinski Testing: right (downgoing), left (downgoing) Psychiatric: NORMAL AFFECT, NO SUICIDAL IDEATION, CONTRACTS FOR SAFETY Diagnostics Labs Results Past 24 Hours Test 05/29/17 17:44 Range/Units White Blood Count 11.05 4.8-10.8 K/uL Red Blood Count 4.12 4.2-5.4 M/uL Hemoglobin 10.6 12.0-16.0 g/dL Hematocrit 32.7 37-47 % Mean Corpuscular Volume 79.4 80-100 fL Mean Corpuscular Hemoglobin 25.7 25-34 pg Mean Corpuscular Hemoglobin Concent 32.4 32-36 g/dl Platelet Count 317 130-400 K/uL Mean Platelet Volume 8.6 7.4-10.4 fL Neutrophils (%) (Auto) 87.8 % Lymphocytes (%) (Auto) 9.0 % Monocytes (%) (Auto) 2.7 % Eosinophils (%) (Auto) 0.1 % Basophils (%) (Auto) 0.1 % Neutrophils # (Auto) 9.71 1.4-6.5 K/uL Lymphocytes # (Auto) 0.99 1.2-3.4 K/uL Monocytes # (Auto) 0.30 0.11-0.59 K/uL Eosinophils # (Auto) 0.01 0-0.5 K/uL Basophils # (Auto) 0.01 0-0.2 K/uL RDW Standard Deviation 49.7 36.4-46.3 fL RDW Coefficient of Variation 17.1 11.5-14.5 % Immature Granulocyte % (Auto) 0.3 % Immature Granulocyte # (Auto) 0.03 0.00-0.02 K/uL Prothrombin Time 9.7 9.0-12.0 SECONDS Prothromb Time International Ratio 0.9 0.9-1.1 Activated Partial Thromboplast Time 23.5 21.0-31.0 SECONDS Partial Thromboplastin Ratio 0.9 Sodium Level 141 136-145 mmol/L Potassium Level 3.4 3.5-5.1 mmol/L Chloride Level 103 98-107 mmol/L Carbon Dioxide Level 32 21-32 mmol/L Anion Gap 6.0 3-11 mmol/L Blood Urea Nitrogen 16 7-18 mg/dl Creatinine 0.86 0.60-1.20 mg/dl Est Creatinine Clear Calc Drug Dose 63.1 ml/min Estimated GFR () 80.5 Estimated GFR (Non- 69.4 BUN/Creatinine Ratio 18.5 10-20 Random Glucose 101 70-99 mg/dl Calcium Level 8.7 8.5-10.1 mg/dl Diagnostic Radiology Please refer to HPI Impression Assessment and Plan 67-year-old female admitted for acute on chronic shortness of breath with associated cough: 1. Cough: At this time will prepare patient for bronchoscopic intervention to evaluate for possible etiology of refractory cough. 2. Medications: Agree with current medications but this time will drop the patient's prednisone dosing down to 20 mg b.i.d.. If no definitive findings noted on her bronchoscopic evaluation with discontinue antibiotics at that time as well. As the patient has been on antibiotics performing a procalcitonin at this time would not be clinically warranted. 3. Pulmonary nodule: Patient is 1st CT scan with sought 9 mm right middle lobe nodule was 01/22/[address] scan from 08/16/2016 notes stability of this note. This is considered her 6-12 month follow-up. Patient's recent CT imaging from 05/17/2017 can replace the previously scheduled 1 in June of 2017. As these nodules are stable and under 6 mm continue follow-up is not warranted at this time. 6. Aortic aneurysm: Patient has a 4 cm ascending thoracic aortic aneurysm. As she is currently asymptomatic for ascending aortic aneurysm signs and symptoms yearly monitoring is appropriate. Aortic aneurysms can be monitored either by echocardiography or even CT a of the chest and/or contrast MRI. As the patient' s recent CT was performed 05/17/2017 follow-up would be warranted in April of 2018.
[2017-05-30] MEDS: ALBUT/IPRATROP 3MG/0.5MG NEB 3 ML VIAL INH SCH ×4 (07:03→18:56)
[2017-05-30] MEDS: BUDESONIDE 0.5 MG/2 ML VIAL (PULMICORT) INH SCH ×2 (07:03→18:56)
[2017-05-30] MEDS: TIOTROPIUM BROMIDE-OLODATEROL 2.5-2.5MCG/ACT INH SCH ×2 (07:27→20:29)
[2017-05-30] MEDS: GUAIFENESIN 600 MG TABCR PO SCH ×2 (07:28→20:31)
[2017-05-30] MEDS: NYSTATIN SUSP 500,000 U/5 ML UDC PO SCH ×3 (07:28→20:29)
[2017-05-30] MEDS: PANTOprazole SOD 40 MG TAB PO SCH ×2 (07:29→20:31)
[2017-05-30] MEDS: RANITIDINE HCL 150 MG TAB PO SCH ×2 (07:29→20:31)
--- NOTE | 2017-05-30 08:42 | Pre Sedation Assessment ---
Pre Sedation Assessment General Date of Sedation: May 30, 2017. Vital Signs Past 12 Hours Date Time Temp Pulse Resp B/P (MAP) Pulse Ox O2 Delivery O2 Flow Rate FiO2 05/30/17 07:17 36.6 72 18 130/79 (96) 99 Nasal Cannula 2.0 05/30/17 07:04 82 18 96 Nasal Cannula 2.0 05/30/17 00:10 Room Air 2.0 05/29/17 23:36 36.5 77 20 130/71 (90) 96 Room Air Review Cardiovascular: regular rate, rhythm, no edema, no gallop, no JVD, no murmur, normal peripheral pulses Lungs: chest non-tender, lungs clear, normal breath sounds, no respiratory distress, no accessory muscle use Pre-Sedation Airway Assessment Smoking Status: Former Smoker (1.5ppd for 52 years, quit 2013) Hx of Sleep Apnea: Yes Hx of difficult intubation: No Short Thick Neck: Yes Thyro-mental Distance: > 3 Finger Breadths Oral Cavity: Dentures Mallampati Classification: Class II ASA Classification: Class II NPO Status Date of Last Intake of Fluids: May 30, 2017 Time of Last Intake of Fluids: 0000 Date of Last Intake of Solids: May 30, 2017 Time of Last Intake of Solids: 0000 Procedure Planning Contraindications for Sedation: None Current Medications Reviewed: Yes Notes The planned sedation has been discussed with the patient. Informed Consent was obtained. I have identified the patient, determined the appropriateness of sedation and have assessed the patient immediately prior to the procedure. All medicine(s) and interventions are by my order.
[2017-05-30] MEDS ORDERED: FENTANYL CITRATE INJ 50 MCG/1 ML 2 ML VIAL IV ONE (09:38)
[2017-05-30] MEDS ORDERED: LIDOCAINE VISCOUS 2% 100ML TOP ONE (09:38)
[2017-05-30] MEDS ORDERED: LIDOCAINE HCL 2% LOCAL 50ML VIAL INSTIL ONE (09:38)
[2017-05-30] MEDS ORDERED: MIDAZOLAM HCL 5 MG/ML 1 ML VIAL IV ONE (09:38)
[2017-05-30] MEDS ORDERED: LIDOCAINE 4% INH SOLN 4 ML BTL TOP ONE (09:38)
--- NOTE | 2017-05-30 09:42 | Bronchoscopy Procedure Note ---
Bronchoscopy Procedure Note Procedure: Bronchoscopy, conscious sedation, bronchial lavage Consent: Obtained through the patient placed into the chart Pre-procedural diagnosis: Chronic cough with exacerbation Post-procedural diagnosis: Chronic cough exacerbation Start time: 909 End time: 929 Total time: 20 minutes Analgesia: 2% liquid lidocaine: Via nebulizer 4% gel lidocaine: Via right naris 2% liquid lidocaine: Via bronchoscopy Sedation: Versed IV: 6 mg Fentanyl IV: 125 g Procedure: The FedBid video bronchoscope was used for this procedure and passed down through the right naris Right naris/posterior naris/posterior oropharynx: Anatomically within normal limits, diffuse erythema and edema noted Glottis: Anatomically within normal limits, mild erythema Vocal cords: Proper abduction and abduction, anatomically within normal limits Subglottis: Anatomically within normal limits Trachea: Some EDAC appreciated mid 1/3 of the trachea proximally 70% Chitra: Anatomically within normal limits Right bronchial tree: Right mainstem bronchus: Anatomically within normal limits Right upper lobe: Anatomically within normal limits Bronchus intermedius: Anatomically within normal limits Right middle lobe: Anatomically within normal limits Right lower lobe: Anatomically within normal limits Findings: No significant findings noted Left bronchial tree: Left mainstem bronchus: Anatomically within normal limits Left upper lobe: Anatomically within normal limits Lingula: Anatomically within normal limits Left lower lobe: Anatomically within normal limits Findings: No significant findings noted Bronchial alveolar lavage: Right lower lobe EBL: None Complications: None Follow-up: ASU
--- NOTE | 2017-05-30 09:43 | Post Sedation Assessment ---
Post Sedation Assessment General Date of Sedation May 30, 2017. Vital Signs: Vital Signs Past 12 Hours Date Time Temp Pulse Resp B/P (MAP) Pulse Ox O2 Delivery O2 Flow Rate FiO2 05/30/17 09:35 80 17 128/69 96 Oxymask 6 05/30/17 09:30 90 19 141/71 96 Oxymask 6 05/30/17 09:25 79 12 119/77 95 Oxymask 6 05/30/17 09:20 88 16 117/74 96 Oxymask 6 05/30/17 09:15 80 16 123/83 95 Oxymask 6 05/30/17 09:10 88 20 130/61 97 Oxymask 6 05/30/17 08:53 93 21 128/83 99 Oxymask 8 05/30/17 08:00 Room Air 2.0 05/30/17 07:17 36.6 72 18 130/79 (96) 99 Nasal Cannula 2.0 05/30/17 07:04 82 18 96 Nasal Cannula 2.0 05/30/17 00:10 Room Air 2.0 05/29/17 23:36 36.5 77 20 130/71 (90) 96 Room Air Post Procedure Recovery Score Activity: (2) Moves 4 extremities * Respiration: (2) Deep breath/cough Circulation: (2) +/-20% PreAnes Value Consciousness: (2) Fully Awake Oxygen Saturation: (1) O2 needed for >90% Post Anesthesia Score: 9 Discharge Sedation Level of Care: Fast Track Phase II Post Sedation Plan On clinical assessment, the patient appears to have tolerated the sedation without complications. Patient is recovering as anticipated. Patient will continue to be monitored by nursing and may be discharged when sedation discharge criteria are met per below protocol. Upon Completions of procedure and additional 15 minutes continue every 5 minute vital signs and the P.A.R. score; then discharge to a Phase I or Fast Track to Phase II per the following guidelines: * Discharge Patient to appropriate Phase II area if PAR is 8 or greater or return to pre- procedure baseline. The post - procedure orders will be as directed. * If PAR score is less than 8 or not return to pre-procedure baseline then patient will follow Phase I monitoring till PAR is reached for Phase II. The Phase I may be done in procedure room or may call to secure a Phase I area. * If naloxone or flumazenil are used for reversal, hold in Phase I for an additional 60 -120 minutes before discharge to Phase II. Please call the Sedation Physician to re-evaluate and complete post-note for discharge to Phase II area. Do NOT discharge from procedure sedation or Phase 1 until post- sedation evaluation note is complete by procedure /sedation MD Sedation Discharge Instructions to be given to the patient at discharge to home.
[2017-05-30] MEDS: ROFLUMILAST 500 MCG TAB PO SCH (09:53)
[2017-05-30] MEDS: FUROSEMIDE 20 MG TAB PO SCH (09:54)
[2017-05-30] MEDS: POTASSIUM CHLORIDE 20 MEQ TABCR PO SCH ×2 (09:54→20:30)
[2017-05-30] MEDS: AZITHROMYCIN 250 MG TAB PO SCH (09:54)
--- NOTE | 2017-05-30 11:57 | Hospitalist Progress Note ---
Hospitalist Progress Note Date of Service May 30, 2017. (Alfred Acharya, GOGO) Subjective Pt evaluation today including: conversation w/ patient, physical exam, chart review, lab review, review of studies, review of inpatient medication list Pain: denies any pain PO Intake: still NPO post bronch, but hungry Voiding: no voiding problems Had bronch this am - still coughing, still SOB, still weak. No chest pain (Alfred Acharya CRNP) Medications medications reviewed (Alfred Acharya CRNP) Objective Vital Signs Date Time Temp Pulse Resp B/P (MAP) Pulse Ox O2 Delivery O2 Flow Rate FiO2 05/30/17 11:08 72 18 96 Nasal Cannula 2.0 05/30/17 10:45 36.9 74 18 109/69 (82) 95 Room Air 2.0 05/30/17 10:15 36.9 81 18 123/75 (91) 93 Nasal Cannula 2.0 05/30/17 10:00 92 Nasal Cannula 2.0 05/30/17 09:59 36.9 86 18 144/75 (98) 92 Nasal Cannula 2.0 05/30/17 09:45 92 19 128/71 95 Nasal Cannula 2 05/30/17 09:40 85 17 119/77 93 Nasal Cannula 2 05/30/17 09:35 80 17 128/69 96 Oxymask 6 05/30/17 09:30 90 19 141/71 96 Oxymask 6 05/30/17 09:25 79 12 119/77 95 Oxymask 6 05/30/17 09:20 88 16 117/74 96 Oxymask 6 05/30/17 09:15 80 16 123/83 95 Oxymask 6 05/30/17 09:10 88 20 130/61 97 Oxymask 6 05/30/17 08:53 93 21 128/83 99 Oxymask 8 05/30/17 08:00 Room Air 2.0 05/30/17 07:17 36.6 72 18 130/79 (96) 99 Nasal Cannula 2.0 05/30/17 07:04 82 18 96 Nasal Cannula 2.0 05/30/17 00:10 Room Air 2.0 05/29/17 23:36 36.5 77 20 130/71 (90) 96 Room Air 05/29/17 19:41 82 18 96 Nasal Cannula 2.0 05/29/17 16:48 36.7 103 20 138/70 Room Air 91 05/29/17 16:00 36.7 103 20 138/70 (92) 91 Room Air (Alfred Acharya, [employer]) Physical Exam General Appearance: WD/WN Eyes: normal inspection, EOMI ENT: hearing grossly normal, pharynx normal Neck: supple, no JVD Respiratory/Chest: + wheezing (with some coarseness right middle lobe) Cardiovascular: regular rate, rhythm, no edema, no JVD, no murmur Abdomen: normal bowel sounds, non tender, soft Extremities: normal range of motion, normal inspection, no pedal edema Neurologic/Psychiatric: alert, normal mood/affect, oriented x 3 Skin: normal color, warm/dry, no rash (Alfred Acharya, [employer]) Laboratory Results Last 24 Hours Test 05/29/17 17:44 05/30/17 09:30 White Blood Count 11.05 K/uL Red Blood Count 4.12 M/uL Hemoglobin 10.6 g/dL Hematocrit 32.7 % Mean Corpuscular Volume 79.4 fL Mean Corpuscular Hemoglobin 25.7 pg Mean Corpuscular Hemoglobin Concent 32.4 g/dl Platelet Count 317 K/uL Mean Platelet Volume 8.6 fL Neutrophils (%) (Auto) 87.8 % Lymphocytes (%) (Auto) 9.0 % Monocytes (%) (Auto) 2.7 % Eosinophils (%) (Auto) 0.1 % Basophils (%) (Auto) 0.1 % Neutrophils # (Auto) 9.71 K/uL Lymphocytes # (Auto) 0.99 K/uL Monocytes # (Auto) 0.30 K/uL Eosinophils # (Auto) 0.01 K/uL Basophils # (Auto) 0.01 K/uL RDW Standard Deviation 49.7 fL RDW Coefficient of Variation 17.1 % Immature Granulocyte % (Auto) 0.3 % Immature Granulocyte # (Auto) 0.03 K/uL Prothrombin Time 9.7 SECONDS Prothromb Time International Ratio 0.9 Activated Partial Thromboplast Time 23.5 SECONDS Partial Thromboplastin Ratio 0.9 Sodium Level 141 mmol/L Potassium Level 3.4 mmol/L Chloride Level 103 mmol/L Carbon Dioxide Level 32 mmol/L Anion Gap 6.0 mmol/L Blood Urea Nitrogen 16 mg/dl Creatinine 0.86 mg/dl Est Creatinine Clear Calc Drug Dose 63.1 ml/min Estimated GFR () 80.5 Estimated GFR (Non- 69.4 BUN/Creatinine Ratio 18.5 Random Glucose 101 mg/dl Calcium Level 8.7 mg/dl (Alfred Acharya CRNP) Diagnostic Results Bronchoscopy Procedure Note Procedure: Bronchoscopy, conscious sedation, bronchial lavage Consent: Obtained through the patient placed into the chart Pre-procedural diagnosis: Chronic cough with exacerbation Post-procedural diagnosis: Chronic cough exacerbation Start time: 909 End time: 929 Total time: 20 minutes Analgesia: 2% liquid lidocaine: Via nebulizer 4% gel lidocaine: Via right naris 2% liquid lidocaine: Via bronchoscopy Sedation: Versed IV: 6 mg Fentanyl IV: 125 g Procedure: The StayTuned video bronchoscope was used for this procedure and passed down through the right naris Right naris/posterior naris/posterior oropharynx: Anatomically within normal limits, diffuse erythema and edema noted Glottis: Anatomically within normal limits, mild erythema Vocal cords: Proper abduction and abduction, anatomically within normal limits Subglottis: Anatomically within normal limits Trachea: Some EDAC appreciated mid 1/3 of the trachea proximally 70% Chitra: Anatomically within normal limits Right bronchial tree: Right mainstem bronchus: Anatomically within normal limits Right upper lobe: Anatomically within normal limits Bronchus intermedius: Anatomically within normal limits Right middle lobe: Anatomically within normal limits Right lower lobe: Anatomically within normal limits Findings: No significant findings noted Left bronchial tree: Left mainstem bronchus: Anatomically within normal limits Left upper lobe: Anatomically within normal limits Lingula: Anatomically within normal limits Left lower lobe: Anatomically within normal limits Findings: No significant findings noted Bronchial alveolar lavage: Right lower lobe EBL: None Complications: None Follow-up: ASU (Alfred Acharya CRNP) Assessment and Plan 67 year old female admitted directly from pulmonology office for chronic cough, shortness of breath need for possible bronchoscopy 1. Acute on Chronic COPD exac. - had bronch this AM with washings - still coughing, still wheezing - cont nebs/O2/IV solumedrol, azithro/rocephin 2. Chronic cough and shortness of breath - COPD vs. postnasal drip vs. GERD vs. recurrent aspirations - proximal 1/3 of trachea with 70% narrowing - barium swallow had no aspiration in the past. 3. ELÍAS - mild AHI 5.4 - can use her own CPAP at night 4. GERD / Hx peptic ulcer - continue ranitidine and pantoprazole 5. disposition - another day or two to treat COPD exac Continued [facility] stay due to: multiple IV medications needed Discharge planning: home with home health (Alfred Acharya ., GO[facility]) [facility] Physician Supervision Note: I interviewed and examined the patient. Discussed with Alfred BOWENS and agree with findings and plan as documented in the note. Any exceptions or clarifications are listed here: None This pt is about the same still with cough, I personally spoke to pulmonary med wants to keep patient for another day to eval results of bronchoscopy, does not feel swallowing study is warranted and speech therapy agrees as during bronch larynx looked normal vitals are stable, lungs clear with prolongued Exp phase and cough chronic cough, some inflammation commented on bronchoscopy, await further pulmonary recommendations Documented By: Servando Drake (Servando Drake M.D.)
[2017-05-30] MEDS: CEFTRIAXONE SOD INJ 1 GM in DEXTROSE 5% ADD-VANTAGE 50ML 50 ML IV SCH (17:50)
[2017-05-30] MEDS: TRAMADOL HCL 50 MG TAB PO PRN (18:28)
[2017-05-30] MEDS: LORAZEPAM 1 MG TAB PO PRN (20:29)
[2017-05-30] MEDS: HYDROCODONE/HOMATROPINE SYRUP 5MG/1.5MG 5ML UDP PO PRN (20:29)
[2017-05-30] MEDS: ASCORBIC ACID 500 MG TAB PO SCH (20:29)
[2017-05-30] MEDS: ATORVASTATIN 10 MG TAB PO SCH (20:30)
[2017-05-30] MEDS: CHOLECALCIFEROL 1000 INTER.UNIT TAB PO SCH (20:31)
[2017-05-30] MEDS: SERTRALINE HCL 100 MG TAB PO SCH (20:31)
[2017-05-30] MEDS: ALBUTEROL HFA 8 GM INHALER INH PRN (23:08)
[2017-05-31] VITALS (7 sets, daily range): BP systolic 113–141; BP diastolic 61–71; PULSE 83–97; TEMP 36.4–36.9; O2SAT 92–98
[2017-05-31] MEDS: ALBUT/IPRATROP 3MG/0.5MG NEB 3 ML VIAL INH SCH ×5 (00:28→19:24)
[2017-05-31] MEDS: FLUTICASONE PROPIONATE NA SPR 16 GM BTL PRN ×2 (00:33→08:04)
[2017-05-31] MEDS: METHYLPREDNISOLONE IV 40 MG in SYRINGE 0 ML IV SCH ×2 (01:52→10:03)
[2017-05-31] MEDS: HYDROCODONE/HOMATROPINE SYRUP 5MG/1.5MG 5ML UDP PO PRN ×2 (05:49→19:51)
[2017-05-31] MEDS: BUDESONIDE 0.5 MG/2 ML VIAL (PULMICORT) INH SCH ×2 (07:38→19:24)
[2017-05-31] MEDS: BENZONATATE 100MG CAP PO PRN ×2 (07:59→14:10)
[2017-05-31] MEDS: NYSTATIN SUSP 500,000 U/5 ML UDC PO SCH ×3 (07:59→19:53)
[2017-05-31] MEDS: TIOTROPIUM BROMIDE-OLODATEROL 2.5-2.5MCG/ACT INH SCH ×2 (07:59→19:54)
[2017-05-31] MEDS: ONDANSETRON 4 MG TAB PO PRN (08:00)
[2017-05-31] MEDS: FUROSEMIDE 20 MG TAB PO SCH (08:00)
[2017-05-31] MEDS: GUAIFENESIN 600 MG TABCR PO SCH ×2 (08:01→19:52)
[2017-05-31] MEDS: AZITHROMYCIN 250 MG TAB PO SCH (08:01)
[2017-05-31] MEDS: PANTOprazole SOD 40 MG TAB PO SCH ×2 (08:01→19:52)
[2017-05-31] MEDS: RANITIDINE HCL 150 MG TAB PO SCH ×2 (08:01→19:53)
[2017-05-31] MEDS: ROFLUMILAST 500 MCG TAB PO SCH (08:01)
[2017-05-31] MEDS: LORAZEPAM 1 MG TAB PO PRN ×3 (08:04→19:51)
[2017-05-31] MEDS: TRAMADOL HCL 50 MG TAB PO PRN ×2 (08:21→21:47)
--- NOTE | 2017-05-31 11:26 | Hospitalist Progress Note ---
Hospitalist Progress Note Date of Service May 31, 2017. (Alfred Acharya CRNP) Subjective Pt evaluation today including: conversation w/ patient, physical exam, chart review, lab review, review of studies, review of inpatient medication list Pain: denies pain PO Intake: tolerating Po Voiding: no voiding problems still with ongoing cough, still SOB, no fever or chills Constitutional: No see HPI, No fever, No chills, No sweats, No weight loss, No weakness, No fatigue, No problem reported ENT: No see HPI, No hearing loss, No unusual epistaxis, No nasal symptoms, No sore throat, No tinnitus, No dental problems, No trouble swallowing, No problem reported Respiratory: + cough, + shortness of breath Cardiovascular: No see HPI, No chest pain, No orthopnea, No PND, No edema, No claudication, No palpitations, No problem reported Abdomen: + diarrhea Musculoskeletal: No see HPI, No joint pain, No muscle pain, No swelling, No calf pain, No problem reported Psychiatric: No see HPI, No depression symptoms, No anhedonism, No anxiety, No insomnia, No substance abuse, No problem reported Heme: No see HPI, No abnormal bleeding/bruising, No clotting problems, No swollen lymph nodes, No night sweats, No problem reported Skin: No see HPI, No rash, No itch, No new/changing skin lesions, No color change, No bleeding, No problem reported (Alfred Acharya CRNP) Medications reviewed (Alfred Acharya CRNP) Objective Vital Signs Date Time Temp Pulse Resp B/P (MAP) Pulse Ox O2 Delivery O2 Flow Rate FiO2 05/31/17 08:00 Nasal Cannula 2.0 05/31/17 07:41 36.4 83 18 141/71 (94) 92 Nasal Cannula 05/31/17 07:39 87 18 98 Nasal Cannula 1.0 05/31/17 00:28 85 18 98 Nasal Cannula 2.0 05/31/17 00:00 Room Air 2.0 05/30/17 23:48 36.6 92 20 155/84 (107) 97 Nasal Cannula 2.0 05/30/17 18:56 85 18 98 Nasal Cannula 2.0 05/30/17 16:00 98 Nasal Cannula 2.0 05/30/17 15:41 36.8 93 17 107/65 (79) 98 Nasal Cannula 2.0 05/30/17 14:46 80 18 97 Nasal Cannula 2.0 05/30/17 12:56 37.0 86 18 145/64 (91) 95 Nasal Cannula 2.0 05/30/17 12:43 Oxymask 05/30/17 12:23 36.6 89 18 129/77 (94) 97 Room Air 05/30/17 11:42 36.9 92 18 130/71 (90) 92 (Alfred Acharya CRNP) Physical Exam Eyes: normal inspection ENT: hearing grossly normal, pharynx normal Neck: supple, no JVD Respiratory/Chest: no respiratory distress, no accessory muscle use, + wheezing Cardiovascular: regular rate, rhythm, no edema, no JVD, no murmur Abdomen: normal bowel sounds, non tender, soft Extremities: normal range of motion, non-tender, no pedal edema Neurologic/Psychiatric: alert, oriented x 3 Skin: normal color, warm/dry Lymphatic: no adenopathy (Alfred Acharya CRNP) Assessment and Plan 67 year old female admitted directly from pulmonology office for chronic cough, shortness of breath need for possible bronchoscopy 1. Acute on Chronic COPD exac. - no significant improvement - bronch with washings yesterday - still coughing, wheezing improving - start to taper steroids. - cont nebs/O2, azithro/rocephin 2. Chronic cough and shortness of breath - COPD vs. postnasal drip vs. GERD vs. recurrent aspirations - proximal 1/3 of trachea with 70% narrowing on bronchoscopy - barium swallow had no aspiration 2 weeks ago 3. ELÍAS - mild AHI 5.4 - can use her own CPAP at night 4. GERD / Hx peptic ulcer - continue ranitidine and pantoprazole 5. disposition - one more day Continued [facility] stay due to: multiple IV medications needed Discharge planning: home with home health (Alfred Acharya CRNP) [facility] Physician Supervision Note: I interviewed and examined the patient. Discussed with Alfred BOWENS and agree with findings and plan as documented in the note. Any exceptions or clarifications are listed here: None This pt is uncomfortable going home as still with cronin and cough, continue with pulmonary support vitals are stable, lungs clear with prolonged Exp phase and cough continues chronic cough, some inflammation commented on bronchoscopy, continue to await further pulmonary recommendations Documented By: Servando Drake (Servando Drake M.D.)
[2017-05-31] MEDS: ALBUTEROL HFA 8 GM INHALER INH PRN (13:44)
--- NOTE | 2017-05-31 17:03 | PULMONARY PROGRESS NOTE ---
DATE: 05/31/2017 SUBJECTIVE: The patient's evaluation today including: Conversation with the patient, physical exam, chart review, lab review and review of studies as well as review of inpatient medication list. Cough is significantly better, but the patient feels extremely sleepy today. Dr. Abdi felt most of the cough is from postnasal drainage, although she is being treated for her COPD exacerbation. Her sputum is clear currently. PHYSICAL EXAMINATION: VITAL SIGNS: Temperature 36.4, pulse 83 and regular, respiratory rate 18, blood pressure 141/71, and O2 sat 92% on 2 liters. SKIN: Without lesion. HEENT: Atraumatic and normocephalic. PERRLA and EOMI. Conjunctivae pink. Sclerae nonicteric. Fundi benign. Tympanic membranes are within normal limits. Pharyngeal exam is intact. NECK: Veins not distended at 45 degrees. No adenopathy in the supra or infraclavicular areas. LUNGS: No audible wheezing currently. The patient does still cough with a full inspiratory effort. CARDIAC: Regular rhythm. No murmurs or gallops. ABDOMEN: Soft and scaphoid. No evidence of hepatosplenomegaly. EXTREMITIES: No pedal edema, clubbing or cyanosis. NEUROLOGICAL: Intact. LABORATORY DATA: Bronchial washings, normal don. White count on admission 11,000, H&H 10 and 32 with hypochromic microcytic indices. Potassium 3.5 and 4 on admission. EDAC was present at proximal mid third of the trachea. OVERALL ASSESSMENT: 1. Chronic obstructive pulmonary disease exacerbation. 2. Postnasal drainage. I would convert the patient to oral prednisone as well as oral antibiotics and I think it is safe to discharge the patient within the next 24 hours with followup in our clinic in 1-2 weeks' time.
[2017-05-31] MEDS: CEFTRIAXONE SOD INJ 1 GM in DEXTROSE 5% ADD-VANTAGE 50ML 50 ML IV SCH (18:03)
[2017-05-31] MEDS: ATORVASTATIN 10 MG TAB PO SCH (19:51)
[2017-05-31] MEDS: CHOLECALCIFEROL 1000 INTER.UNIT TAB PO SCH (19:52)
[2017-05-31] MEDS: SERTRALINE HCL 100 MG TAB PO SCH (19:53)
[2017-05-31] MEDS: ASCORBIC ACID 500 MG TAB PO SCH (19:54)
[2017-05-31] MEDS ORDERED: METHYLPREDNISOLONE IV 40 MG in SYRINGE 0 ML IV SCH (22:00)
[2017-06-01 00:23] VITALS: BP 126/73; PULSE 79; TEMP 37.1; O2SAT 97
[2017-06-01] MEDS: ALBUT/IPRATROP 3MG/0.5MG NEB 3 ML VIAL INH SCH ×3 (07:05→14:24)
[2017-06-01 07:06] VITALS: PULSE 108; O2SAT 97
[2017-06-01] MEDS: BUDESONIDE 0.5 MG/2 ML VIAL (PULMICORT) INH SCH (07:06)
[2017-06-01 07:53] VITALS: BP 129/81; PULSE 78; TEMP 37; O2SAT 98
[2017-06-01 07:54] LABS: HEMATOCRIT 33.8 % (37-47); HEMOGLOBIN 10.5 g/dL (12.0-16.0); MEAN CELL VOLUME 80.7 fL (80-100); MEAN CORPUSCULAR HEMOGLOBIN 25.1 pg (25-34); MEAN CORPUSCULAR HGB CONC 31.1 g/dl (32-36); MEAN PLATELET VOLUME 8.7 fL (7.4-10.4); PLATELET COUNT 395 K/uL (130-400); RED CELL DISTRIBUTION WIDTH CV 17.9 % (11.5-14.5); RED CELL DISTRIBUTION WIDTH SD 53.3 fL (36.4-46.3); WHITE BLOOD COUNT 16.65 K/uL (4.8-10.8)
[2017-06-01] MEDS: HYDROCODONE/HOMATROPINE SYRUP 5MG/1.5MG 5ML UDP PO PRN (08:02)
[2017-06-01] MEDS: RANITIDINE HCL 150 MG TAB PO SCH (08:03)
[2017-06-01] MEDS: FUROSEMIDE 20 MG TAB PO SCH (08:03)
[2017-06-01] MEDS: TIOTROPIUM BROMIDE-OLODATEROL 2.5-2.5MCG/ACT INH SCH (08:03)
[2017-06-01] MEDS: NYSTATIN SUSP 500,000 U/5 ML UDC PO SCH ×2 (08:04→14:36)
[2017-06-01] MEDS: AZITHROMYCIN 250 MG TAB PO SCH (08:04)
[2017-06-01] MEDS: GUAIFENESIN 600 MG TABCR PO SCH (08:04)
[2017-06-01] MEDS: POTASSIUM CHLORIDE 20 MEQ TABCR PO SCH (08:04)
[2017-06-01] MEDS: ROFLUMILAST 500 MCG TAB PO SCH (08:04)
[2017-06-01] MEDS: PANTOprazole SOD 40 MG TAB PO SCH (08:04)
[2017-06-01] MEDS: TRAMADOL HCL 50 MG TAB PO PRN (08:11)
[2017-06-01] MEDS: LORAZEPAM 1 MG TAB PO PRN (08:11)
--- NOTE | 2017-06-01 08:16 | Clinical Documentation Query ---
CLINICAL DOCUMENTATION QUERY Dr. JARA, In your clinical opinion is this patient being managed for: ( xx) Chronic hypoxic respiratory failure ( ) Not Agree ( ) Other explanation of clinical findings (Please Explain) ( ) Unable to determine (Please Define) ( ) Need to Discuss The medical record reflects the following clinical findings, treatment, and risk factors. Clinical Indicators: 67 yo female presenting with acute COPD exacerbation. Treatment: chronic management includes O2 support, pulmicort, duonebs, daliresp, stiolto respimat, prednisone management prn Risk Factors: severe COPD, chronic bronchiectasis Please clarify and document your clinical opinion in the progress notes and discharge summary. Terms such as "probable", "suspected", "likely", "questionable", "possible", or "still to be ruled out" are acceptable. IF IN AGREEMENT, YOU MUST DOCUMENT ABOVE DIAGNOSTIC STATEMENT IN DAILY PROGRESS NOTES AND DISCHARGE SUMMARY. This document is not part of the patient's record. Thank You, Nallely Bonilla, RN [phone]
[2017-06-01 08:34] LABS: CALCIUM 8.8 mg/dl (8.5-10.1); CREATININE 0.76 mg/dl (0.60-1.20); POTASSIUM 4.4 mmol/L (3.5-5.1)
[2017-06-01] MEDS: ONDANSETRON 4 MG TAB PO PRN (09:16)
[2017-06-01 10:56] VITALS: PULSE 100; O2SAT 98
[2017-06-01] MEDS ORDERED: BENZ100C7 PO (11:34)
[2017-06-01] MEDS ORDERED: AZIT-57 PO (11:34)
[2017-06-01] MEDS ORDERED: CEFU1TAB36 PO (11:34)
[2017-06-01] MEDS ORDERED: PRD20 PO (11:34)
--- NOTE | 2017-06-01 11:38 | Discharge Instructions ---
Discharge Instructions Date of Service Jun 01, 2017. Admission Reason for Admission: COPD Discharge Discharge Diagnosis / Problem: acute exac of COPD with persistent cough Discharge Goals Goal(s): Improve function, Improve disease control Activity Recommendations Activity Limitations: resume your previous activity . Instructions / Follow-Up Instructions / Follow-Up You will follow up with Dr. Casper in the next week or two. We will arrange for outpatient ENT referral. You will go home on a prednisone taper. Please take as directed unless directed otherwise by dr. Casper You will go home on two different antibiotics. Make sure to take all of them. Current Hospital Diet Patient's current hospital diet: Regular Diet Discharge Diet Recommended Diet: Regular Diet Procedures Procedures Performed: bronchoscopy Pending Studies Studies pending at discharge: no Medical Emergencies . Who to Call and When: Medical Emergencies: If at any time you feel your situation is an emergency, please call 911 immediately. . Non-Emergent Contact Non-Emergency issues call your: Primary Care Provider, Specialist (dr Casper) Call Non-Emergent contact if: temperature is above 101 worsening shortness of breath or cough . . "Provider Documentation" section prepared by Alfred Acharya. .
--- NOTE | 2017-06-01 11:45 | Discharge Summary ---
Discharge Summary Date of Service Jun 01, 2017. Discharge Summary Admission Date: May 31, 2017 at 15:26 Discharge Date: Jun 01, 2017 Discharge Disposition: Home with services Principal Diagnosis: acute exac COPD with persistent cough Immunizations: Have You Had Influenza Vaccine: Yes Influenza Vaccine Date: Dec 16, 2015 History of Tetanus Vaccine?: Yes Tetanus Immunization Date: Sep 08, 2009 History of Pneumococcal: Yes Pneumococcal Date: Mar 17, 2014 Medication Reconciliation New Medications: Cefuroxime Axetil (Cefuroxime Axetil) 500 Mg Tab 1 TAB PO BID for 7 Days, #14 TAB Azithromycin (Azithromycin) 250 Mg Tab 500 MG PO QAM, #5 TAB Benzonatate (Benzonatate) 100 Mg Cap 100 MG PO TID PRN for Cough, #30 CAP Prednisone (Prednisone) 20 Mg Tab 40 MG PO DAILY, #20 TAB Continued Medications: Albuterol Hfa (Ventolin Hfa) 200 Puffs/57813 Mcg Aers 2 PUFFS INH Q6H PRN for Shortness of Breath, #1 INHALER Alendronate Sodium (Fosamax) 70 Mg Tab 1 TAB PO WK for 28 Days, #4 TAB 3 Refills TAKES ON MON Ascorbic Acid (Vitamin C) 500 Mg Cap 1 CAP PO HS Atorvastatin (Lipitor) 10 Mg Tab 10 MG PO HS Budesonide (Inhalation) (Pulmicort Respules 0.5MG/2ML) 0.5 Mg/2 Ml Enedina 2 ML INH BID, EA Cholecalciferol (Vitamin D) 2,000 Unit Tab 1 TAB PO QAM Cholecalciferol (Vitamin D) 1,000 Unit Tab 1 TAB PO HS Clobetasol Propionate (Temovate) 0.05 % Cre 1 APPLN TOP BID PRN for psoriasis for 14 Days, #30 GM 1 Refill Furosemide (Furosemide) 20 Mg Tab 20 MG PO QAM Guaifenesin/Codeine (Robitussin-Ac Syrup) Syrp 5 ML PO Q4H PRN for Cough for 4 Days, #240 ML Home O2 Therapy (Oxygen) Gas 2 LITERS NA CONT, BTL Ipratropium-Albuterol (Duoneb) 3 Ml Nebu 3 ML INH QID Lorazepam (Lorazepam) 1 Mg Tab 1 MG PO TID PRN for Anxiety Nystatin (Nystatin Suspension) 1 Ml Susp 5 ML PO DIRECTED Ondansetron Hcl (Zofran) 4 Mg Tab 4 MG PO Q8 PRN for Nausea, TAB Pantoprazole (Protonix) 40 Mg Tab 40 MG PO BID, #30 TAB Potassium Ext Rel (Klor-Con) 20 Meq Tabcr 20 MEQ PO QAM, TAB Prednisone (Prednisone Tab) 20 Mg Tab 40 MG PO DAILY, #10 TAB NS Ranitidine HCl (Ranitidine HCl) 150 Mg Tab 150 MG PO BID Roflumilast (Daliresp) 500 Mcg Tab 1 TAB PO QAM, TAB 5 Refills Sertraline (Zoloft) 100 Mg Tab 100 MG PO HS, TAB Tiotropium Worth-Olodaterol (Stiolto Respimat 2.5-2.5 Mcg/Act) 1 Aer Aer 2 SPRAYS INH BID Tramadol (Ultram) 50 Mg Tab 50 MG PO Q6H PRN for Pain, TAB Discharge Exam Review of Systems: Constitutional: No fever, No chills, No sweats, No weight loss, No weakness , No fatigue, No problem reported Eyes: No worsening of vision, No eye pain, No redness, No discharge, No diplopia, No problem reported ENT: No hearing loss, No unusual epistaxis, No nasal symptoms, No sore throat, No tinnitus, No dental problems, No trouble swallowing, No problem reported Respiratory: + cough, + wheezing, + shortness of breath Abdomen: No pain, No nausea, No vomiting, No diarrhea, No constipation, No GI bleeding, No problem reported Musculoskeletal: No joint pain, No muscle pain, No swelling, No calf pain, No problem reported Genitourinary - Female: No dysuria, No urinary frequency, No urinary urgency , No urinary incontinence, No urinary retention, No hematuria, No dysmenorrhea, No menorrhagia, No metrorrhagia, No rash, No vaginal bleeding, No vaginal discharge, No vaginal itching, No vulvodynia, No , No problem reported Neurologic: No memory loss, No paralysis, No weakness, No numbness/tingling , No vertigo, No balance problems, No problem reported Psychiatric: No depression symptoms, No anhedonism, No anxiety, No insomnia , No substance abuse, No problem reported Physical Exam: General Appearance: no apparent distress Eyes: sclerae normal ENT: hearing grossly normal, pharynx normal Neck: supple, no JVD Respiratory/Chest: + decreased breath sounds Cardiovascular: regular rate, rhythm, no edema, no gallop, no JVD Abdomen / GI: normal bowel sounds Extremities: normal inspection, no pedal edema Neurologic/Psychiatric: alert, normal mood/affect, oriented x 3 Skin: normal color, warm/dry, no rash Hospital Course 67 year old female admitted directly from pulmonology office for chronic cough, shortness of breath need for possible bronchoscopy 1. Acute on Chronic COPD exac. - no significant improvement - bronch with washings - still coughing, continue tessalon as she feels it helps some - already has Robitussin AC at home - steroid taper on discharge - - cont nebs/O2, will be discharged home on azithro and cefuroxime 2. Chronic cough and shortness of breath - COPD vs. postnasal drip vs. GERD vs. recurrent aspirations - proximal 1/3 of trachea with 70% narrowing on bronchoscopy - barium swallow had no aspiration 2 weeks ago - arrange for outpatient ENT 3. ELÍAS - mild AHI 5.4 - can use her own CPAP at night 4. GERD / Hx peptic ulcer - continue ranitidine and pantoprazole 5. disposition - home with home nurse. I spoke with dr. Latham and he agrees with discharge. He will continue to follow as outpatient [employer] Physician Supervision Note: I interviewed and examined the patient. Discussed with Alfred BOWENS and agree with findings and plan as documented in the note. Any exceptions or clarifications are listed here: None This pt is comfortable going home and will follow up with pulmonary vitals are stable, lungs clear with prolonged Exp phase and cough continues but is more mild chronic cough, some inflammation commented on bronchoscopy, cefuroxime, azithro and prednisone taper Documented By: Servando Drake Total Time Spent: Greater than 30 minutes This includes examination of the patient, discharge planning, medication reconciliation, and communication with other providers. Discharge Instructions Please refer to the electronic Patient Visit Report (Discharge Instructions) for additional information. Follow-Up dr. latham 1 to 2 weeks pcp 1 week
[2017-06-01 11:47] VITALS: BP 129/81; PULSE 100; TEMP 37; O2SAT 98
[2017-06-01 14:24] VITALS: PULSE 87; O2SAT 98
[2017-06-04] MEDS ORDERED: ALENDRONATE SODIUM 70 MG TAB PO SCH (06:00)
== END 2017-06-01 16:02 | disposition home health service (06) | DRG 167 ==
LOC: C.MS2W 15:33 → INTOOBSV 15:33 → OBSVTOIN 05-31 15:26
PROVIDERS: ADMIT Internal Medicine; ATTEND Internal Medicine
PROC: 0B9F8ZZ Drainage of Right Lower Lung Lobe, Via Natural or Artificial Opening Endoscopic (ICD-10-PCS; principal; 2017-05-30 09:00)
DX: J44.1 Chronic obstructive pulmonary disease with (acute) exacerbation (principal); J96.11 Chronic respiratory failure with hypoxia; G47.33 Obstructive sleep apnea (adult) (pediatric); K21.9 Gastro-esophageal reflux disease without esophagitis; I12.9 Hypertensive chronic kidney disease with stage 1 through stage 4 chronic kidney disease, or unspecified chronic kidney disease; N18.9 Chronic kidney disease, unspecified; E78.5 Hyperlipidemia, unspecified; I71.2 Thoracic aortic aneurysm, without rupture; F10.21 Alcohol dependence, in remission; Z79.899 Other long term (current) drug therapy; Z99.81 Dependence on supplemental oxygen; Z66 Do not resuscitate; Z86.19 Personal history of other infectious and parasitic diseases; Z87.11 Personal history of peptic ulcer disease; Z87.891 Personal history of nicotine dependence; Z82.49 Family history of ischemic heart disease and other diseases of the circulatory system; Z82.79 Family history of other congenital malformations, deformations and chromosomal abnormalities

== ENCOUNTER → 2017-06-19 | Outpatient (CLI) | payer OTHER ==
[~2017-06-19] MED LIST changes: +AZIT-57 PO; +BENZ100C7 PO; +POTA-639 PO; -POTA20TA16 PO; +PRD20 PO
[2017-06-19 14:39] LABS: BASO % 0.1 %; BASO ABS # 0.01 K/uL (0-0.2); EOS % 0.9 %; EOS ABS # 0.09 K/uL (0-0.5); HEMATOCRIT 35.4 % (37-47); HEMOGLOBIN 10.8 g/dL (12.0-16.0); IG# 0.04 K/uL (0.00-0.02); LYMPH % 26.3 %; LYMPH ABS # 2.76 K/uL (1.2-3.4); MEAN CELL VOLUME 82.1 fL (80-100); MEAN CORPUSCULAR HEMOGLOBIN 25.1 pg (25-34); MEAN CORPUSCULAR HGB CONC 30.5 g/dl (32-36); MEAN PLATELET VOLUME 8.6 fL (7.4-10.4); MONO % 6.6 %; MONO ABS # 0.69 K/uL (0.11-0.59); NEUT % 65.7 %; PLATELET COUNT 332 K/uL (130-400); RED CELL DISTRIBUTION WIDTH SD 51.4 fL (36.4-46.3); WHITE BLOOD COUNT 10.49 K/uL (4.8-10.8)
[2017-06-19 15:15] LABS: INFLUENZA A PCR Neg for Influ A (NEG); INFLUENZA B PCR Neg for Influ B (NEG)
== END | disposition home or self-care (01) ==
LOC: C.LAB1850 13:26
PROVIDERS: ATTEND Physician Assistant
DX: R05 Cough (principal)

== ENCOUNTER → 2017-06-22 | Outpatient (CLI) | payer OTHER ==
--- NOTE | 2017-06-22 12:38 | DIAGNOSTIC IMAGING REPORT ---
MODIFIED BARIUM SWALLOW CLINICAL HISTORY: Esophageal dysmotility. COMPARISON STUDY: Modified barium swallow January 24, 2016 and barium swallow April 10, 2017. Fluoroscopy time: 1.7 minutes. FINDINGS: No aspiration was noted within liquids, nectar thick liquids, pudding or crackers with paste. Swallowing mechanism was intact. There is mild esophageal dysmotility. IMPRESSION: 1. No tracheal aspiration identified. 2. Mild esophageal dysmotility. 3. Full recommendations by speech pathology to follow. Electronically signed by: Roni Ragland M.D. 06/22/2017 12:36 PM Dictated Date/Time: 06/22/2017 12:34 PM
--- NOTE | 2017-06-22 17:38 | SWALLOWING EVALUATION ---
REFERRING SPEECH PATHOLOGIST: n/a HISTORY: This 67 year-old female was referred for a VFSS at [facility] in order to rule out aspiration and address c/o persistent strong cough. The patient has a PMH significant for COPD, 70% EDAC in mid 1/3 of trachea, GERD, ELÍAS, IBS, hypertension and hyperlipidemia. She was recently admitted to [facility] and had an order for LEADERSH[employer] PROGRAM [employer]OCIATE services to evaluate and treat her, but that order was cancelled by Dr. Abdi s/p bronchoscopy. The bronchoscopy did not reveal any s/s aspiration and the LEADERSHIP PROGRAM ASSOCIATE was told there was no concern for dysphagia/aspiration. Currently the patient's diet level is regular. She reports she is "very careful" when she eats and drinks because of her constant coughing. PROCEDURE: The patient was seen in the Radiology Department of [facility] for the VFSS. Cursory examination of the oral cavity revealed adequate dentition. Movement of the articulators was WNL. The patient was seated on a stool and was viewed in both the Anterior-Posterior (A-P) and Lateral planes. Volitional phonation exercises completed in the A-P plane revealed bilateral vocal fold movement and vocal intensity within functional limits. In the lateral plane, the patient was given the following boluses: 1 tsp. thin liquid barium x 2, single swallow thin liquid barium self-presented from a cup, sequential swallows of thin liquid barium self-presented from a straw, 1 tsp. nectar-thick liquid barium, single swallow nectar-thick liquid barium self-presented from a cup, 1 tsp. barium pudding, and 1 club cracker with barium pudding. The patient was then repositioned into the A-P plane and given 1 tsp. barium pudding. RESULTS: Oral Stage: Labial seal, oral bolus hold of thin liquids, mastication, lingual motion for bolus transport, oral clearance and pharyngeal swallow initiation were WNL. No oral-stage dysphagia. Pharyngeal Stage: Velar elevation, laryngeal elevation, anterior hyoid excursion, epiglottic inversion, laryngeal vestibular closure, pharyngeal stripping wave and pharyngeal contraction were complete. Distention and duration of PES opening were complete. Tongue base retraction and pharyngeal clearance were complete. No penetration or aspiration during this study and no pharyngeal-stage dysphagia. Esophageal Stage: Mild s/s distal esophageal dysmotility as a pudding bolus transited the esophagus. SUMMARY/RECOMMENDATIONS: This patient presents with normal oral-pharyngeal swallowing mechanics, but does have s/s esophageal dysfunction. This was previously identified during a Barium Swallow Study completed 04/10/17. The following is recommended: 1. Moist, soft diet as tolerated 2. Compensatory Strategies: Fully upright for meals and for 30 minutes after meals; keep head of bed elevated AT LEAST 30-degrees at ALL times-even during sleep; alternate solids and liquids 1:1 during meals 3. Pt states she is scheduled for UGI Series next week. Considering completion of Barium Swallow and Video Swallow has revealed (+) esophageal dysmotility, would consider canceling the study unless there are other GI issues to be ruled-out. A summary of the results and recommendations was discussed with the patient immediately following the study. She verbalized understanding and is anticipating f/u with the referring physician within the next (2) weeks. Thank you for referral of this patient. Please contact me at if any additional information is needed.
== END | disposition home or self-care (01) ==
LOC: C.RAD 11:04
PROVIDERS: ATTEND Internal Medicine Pulmonary Disease
DX: R05 Cough (principal); J44.9 Chronic obstructive pulmonary disease, unspecified; K21.9 Gastro-esophageal reflux disease without esophagitis; G47.33 Obstructive sleep apnea (adult) (pediatric); I10 Essential (primary) hypertension; E78.5 Hyperlipidemia, unspecified

== ENCOUNTER → 2017-06-29 | Outpatient (CLI) | payer OTHER ==
--- NOTE | 2017-06-29 13:30 | DIAGNOSTIC IMAGING REPORT ---
GI SERIES W/AIR ROUTINE CLINICAL HISTORY: K21.9 GERD without [id number] COMPARISON STUDY: None FLUOROSCOPY TIME: 1.5 minutes. FINDINGS: Patient initiates swallowing function well. There is a small hiatal hernia. There are findings of mild gastroesophageal reflux. Size and configuration stomach are normal. Duodenal bulb fills well and is negative for ulceration. Duodenal sweep is unremarkable. There is no evidence for gastric outlet obstruction. IMPRESSION: 1. Normal swallowing function. 2. Mild gastroesophageal reflux. 3. Small hiatal hernia. 4. Study is otherwise negative. The above report was generated using voice recognition software. It may contain grammatical, syntax or spelling errors. Electronically signed by: Nagi Hunt M.D. 06/29/2017 1:29 PM Dictated Date/Time: 06/29/2017 1:25 PM
== END | disposition home or self-care (01) ==
LOC: C.RAD 12:12
PROVIDERS: ATTEND Internal Medicine Pulmonary Disease
DX: K21.9 Gastro-esophageal reflux disease without esophagitis (principal)

== ENCOUNTER → 2017-06-29 | Outpatient (CLI) | payer OTHER ==
--- NOTE | 2017-06-29 13:34 | DIAGNOSTIC IMAGING REPORT ---
Study: Fusion CT of the sinuses HISTORY: Chronic sinusitis FINDINGS: Mild mucosal thickening of the maxillary sinuses bilaterally. Soft tissue occlusion of the ostiomeatal units. Mild hypertrophic changes of the nasal turbinates. Mild/moderate mucosal thickening of the right ethmoid air cells and right frontal air cells. The sphenoid air cells are clear. The orbital margins are intact. There is no evidence for bony destructive process. IMPRESSION: 1. Moderate mucosal thickening of the maxillary right ethmoid and right frontal sinuses. 2. Moderate hypertrophic change of the nasal turbinates. 3. Soft tissue occlusion of the ostiomeatal units bilaterally Electronically signed by: Nagi Hunt M.D. 06/29/2017 1:33 PM Dictated Date/Time: 06/29/2017 1:30 PM
== END | disposition home or self-care (01) ==
LOC: C.CTS 12:19
PROVIDERS: ATTEND Physician Assistant
DX: R05 Cough (principal)

== ENCOUNTER → 2017-09-10 | Outpatient (CLI) | payer OTHER ==
[2017-09-06 11:08] VITALS: Ht 172.7 cm; Wt 75.0 kg
[~2017-09-10] VITALS: Ht 172.7 cm; Wt 75.0 kg
[~2017-09-10] MED LIST changes: +ACET-1047 PO; +ACET-1311 PO; +ALBINS/ INH; +BENZ100C84 PO; +CEFAZOLIN 2000MG IV PUSH 15 ML IV SCH; -CLOB-77 TOP; +FRRS300 PO; -GUAISYP4 PO; +IBUP-1050 PO; -IPRASOL4 INH; +LACTATED RINGER'S 1000ML 1,000 ML IV SCH; -NYSS/ PO; +NYSS5 PO; -ONDA4TAB46 PO; +ONDA4TAB54 PO; +OXYMETAZOLINE HCL 0.05% NA SPR 15 ML BTL SCH; -PLMINS INH; -PRED20TA2 PO; +[UNRECOGNIZED DRUG - CODE] INH
--- NOTE | 2017-09-10 09:24 | PAT Medication Instructions ---
Service Date Sep 10, 2017. Current Home Medication List Albuterol Hfa (Ventolin Hfa), 2 PUFFS INH Q6H PRN for Shortness of Breath Albuterol Sulf (Proventil 0.083% 2.5MG/3ML), 2.5 MG INH QID Alendronate Sodium (Fosamax), 1 TAB PO WK Ascorbic Acid (Vitamin C), 1 CAP PO HS Atorvastatin (Lipitor), 10 MG PO HS Cholecalciferol (Vitamin D), 2 TAB PO QAM Cholecalciferol (Vitamin D), 1 TAB PO HS Furosemide (Furosemide), 20 MG PO QAM Glycopyrrolate (Inhalation) (Lonhala Magnair Refill Ki), 2 PUFFS INH BID Home O2 Therapy (Oxygen), 2 LITERS NA CONT Lorazepam (Lorazepam), 1 MG PO TID PRN for Anxiety Ondansetron (Ondansetron HCl), 4 MG PO Q6H PRN for Nausea or Vomiting Pantoprazole (Protonix), 40 MG PO BID Potassium Ext Rel (Klor-Con), 20 MEQ PO QAM Ranitidine HCl (Ranitidine HCl), 150 MG PO BID Roflumilast (Daliresp), 1 TAB PO QAM Sertraline (Zoloft), 100 MG PO HS Medication Instructions For Your Scheduled Surgery - Continue as directed: Alendronate Sodium (Fosamax), 1 TAB PO WK - Hold the following medications the morning of surgery: Potassium Ext Rel (Klor-Con), 20 MEQ PO QAM Furosemide (Furosemide), 20 MG PO QAM Cholecalciferol (Vitamin D), 2 TAB PO QAM - Take the following medications the morning of surgery with a sip of water: Albuterol Hfa (Ventolin Hfa), 2 PUFFS INH Q6H PRN for Shortness of Breath (if needed) Albuterol Sulf (Proventil 0.083% 2.5MG/3ML), 2.5 MG INH QID Glycopyrrolate (Inhalation) (Lonhala Magnair Refill Ki), 2 PUFFS INH BID Home O2 Therapy (Oxygen), 2 LITERS NA CONT Lorazepam (Lorazepam), 1 MG PO TID PRN for Anxiety (if needed) Ondansetron (Ondansetron HCl), 4 MG PO Q6H PRN for Nausea or Vomiting (if needed ) Pantoprazole (Protonix), 40 MG PO BID Ranitidine HCl (Ranitidine HCl), 150 MG PO BID Roflumilast (Daliresp), 1 TAB PO QAM - Take the following medications as scheduled the night before surgery: Sertraline (Zoloft), 100 MG PO HS Ranitidine HCl (Ranitidine HCl), 150 MG PO BID Lorazepam (Lorazepam), 1 MG PO TID PRN for Anxiety (if needed) Ondansetron (Ondansetron HCl), 4 MG PO Q6H PRN for Nausea or Vomiting (if needed ) Pantoprazole (Protonix), 40 MG PO BID Home O2 Therapy (Oxygen), 2 LITERS NA CONT Glycopyrrolate (Inhalation) (Lonhala Magnair Refill Ki), 2 PUFFS INH BID Ascorbic Acid (Vitamin C), 1 CAP PO HS Atorvastatin (Lipitor), 10 MG PO HS Cholecalciferol (Vitamin D), 1 TAB PO HS Albuterol Hfa (Ventolin Hfa), 2 PUFFS INH Q6H PRN for Shortness of Breath (if needed) Albuterol Sulf (Proventil 0.083% 2.5MG/3ML), 2.5 MG INH QID If you have any questions please call us at [phone] or [phone] or [phone]
--- NOTE | 2017-09-10 10:52 | DIAGNOSTIC IMAGING REPORT ---
CHEST 2 VIEWS ROUTINE HISTORY: 67 years-old Female PAT preoperative exam. History of chronic sinusitis. No acute chest complaints COMPARISON: Chest radiograph 08/15/2017 TECHNIQUE: PA and lateral views of the chest FINDINGS: Cardiomediastinal and hilar silhouettes are within normal limits. No pneumothorax, pleural effusion, focal airspace consolidation or overt pulmonary edema. Degenerative changes of the shoulders and spine. Cholecystectomy clips are noted. IMPRESSION: No acute process. The above report was generated using voice recognition software. It may contain grammatical, syntax or spelling errors. Electronically signed by: Trae Samayoa M.D. 09/10/2017 10:51 AM Dictated Date/Time: 09/10/2017 10:50 AM
[2017-09-10 10:58] LABS: HEMATOCRIT 35.4 % (37-47); HEMOGLOBIN 10.8 g/dL (12.0-16.0); MEAN CORPUSCULAR HEMOGLOBIN 24.7 pg (25-34); MEAN CORPUSCULAR HGB CONC 30.5 g/dl (32-36); PLATELET COUNT 311 K/uL (130-400); WHITE BLOOD COUNT 8.06 K/uL (4.8-10.8)
[2017-09-10 11:07] LABS: INR 0.9 (0.9-1.1); PTT PATIENT 27.5 SECONDS (21.0-31.0)
== END | disposition home or self-care (01) ==
LOC: C.LAB 08:00 → EDSTATUS 09-25 10:15
DX: Z01.811 Encounter for preprocedural respiratory examination (principal); Z01.812 Encounter for preprocedural laboratory examination

== ENCOUNTER 2017-09-15 13:09 | Inpatient (IN) | payer OTHER ==
[~2017-09-15] VITALS: Ht 172.7 cm; Wt 74.8 kg
[~2017-09-15 13:09] MED LIST changes: -ACET-1047 PO; -ACET-1311 PO; -AZIT-57 PO; -BENZ100C7 PO; -BENZ100C84 PO; -CEFAZOLIN 2000MG IV PUSH 15 ML IV SCH; -FRRS300 PO; -IBUP-1050 PO; -LACTATED RINGER'S 1000ML 1,000 ML IV SCH; -NYSS5 PO; -OXYMETAZOLINE HCL 0.05% NA SPR 15 ML BTL SCH; -PRD20 PO; -TIOT1AER INH; -TRAM-10 PO
[2017-09-15] MEDS ORDERED: ALBUT/IPRATROP 3MG/0.5MG NEB 3 ML VIAL INH STA ×2 (13:23→14:54)
[2017-09-15] MEDS ORDERED: METHYLPREDNISOLONE 125 MG VIAL IV STA (13:23)
[2017-09-15] MEDS ORDERED: SODIUM CHLORIDE 0.9% 500ML 500 ML IV STA (13:41)
[2017-09-15 14:12] LABS: BASO % 0.1 %; BASO ABS # 0.01 K/uL (0-0.2); EOS % 5.7 %; EOS ABS # 0.39 K/uL (0-0.5); HEMATOCRIT 35.9 % (37-47); HEMOGLOBIN 11.3 g/dL (12.0-16.0); IG# 0.01 K/uL (0.00-0.02); LYMPH % 30.8 %; MEAN CELL VOLUME 80.5 fL (80-100); MEAN CORPUSCULAR HEMOGLOBIN 25.3 pg (25-34); MEAN CORPUSCULAR HGB CONC 31.5 g/dl (32-36); MEAN PLATELET VOLUME 8.8 fL (7.4-10.4); MONO ABS # 0.41 K/uL (0.11-0.59); NEUT % 57.3 %; PLATELET COUNT 319 K/uL (130-400); RED CELL DISTRIBUTION WIDTH CV 16.5 % (11.5-14.5); RED CELL DISTRIBUTION WIDTH SD 48.6 fL (36.4-46.3); WHITE BLOOD COUNT 6.82 K/uL (4.8-10.8)
--- NOTE | 2017-09-15 14:12 | EMERGENCY ROOM VISIT NOTE ---
History First contact with patient: 13:13 Chief Complaint: SHORTNESS OF BREATH Stated Complaint: SOB History of Present Illness The patient is a 67 year old female who presents to the Emergency Room with complaints of a productive cough with clear sputum and shortness of breath that has been particularly bad this week. The patient has a history of COPD. She wears 2 L of oxygen per nasal cannula at all times. She has been trying her albuterol nebulizer at home with minimal relief. She denies any feverish symptoms such as chills or body aches. She is not currently on steroids. Review of Systems 10 system review performed and negative unless noted in HPI or below Past Medical/Surgical History Medical Problems: (1) Alcohol dependence in remission (2) Benign neoplasm of colon (3) Chronic bronchitis (4) Chronic respiratory failure with hypoxia (5) COPD (chronic obstructive pulmonary disease) (6) COPD exacerbation (7) COPD exacerbation (8) COPD, moderate (9) Cystic Kidney Disease, Unspecified (10) Dysfunctional gallbladder (11) Excessive dynamic airway collapse (12) GERD (gastroesophageal reflux disease) (13) History of aspiration pneumonia (14) Hyperlipidemia (15) Hypertension Nos (16) IBS (irritable bowel syndrome) (17) Obstructive sleep apnea (18) PUD (peptic ulcer disease) (19) Rotator cuff insufficiency of left shoulder (20) Thoracic aortic ectasia (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) Surgical Problems: (1) H/O cervical spine surgery (2) H/O colonoscopy (3) H/O hysterectomy with oophorectomy (4) History of cataract surgery (5) S/P appendectomy (6) S/P bronchoscopy (7) S/p exploration of abdomen (8) S/p left sided discectomy, L3-4 (9) S/P lumbar spinal fusion (10) S/p lumbar spine revision (11) S/P tonsillectomy Family History Blood clots MOTHER Cardiac disorder BROTHER (congenital heart disease) FH: CHF (congestive heart failure) MOTHER FH: heart disease MOTHER GRANDMOTHER FH: lung disease Hypertension Social History Smoking Status: Former Smoker Marital Status: single Housing Status: lives alone Occupation Status: retired Current/Historical Medications Scheduled Albuterol Sulf (Proventil 0.083% 2.5MG/3ML), 2.5 MG INH QID Alendronate Sodium (Fosamax), 1 TAB PO WK Ascorbic Acid (Vitamin C), 1 CAP PO HS Atorvastatin (Lipitor), 10 MG PO HS Cholecalciferol (Vitamin D), 2 TAB PO QAM Cholecalciferol (Vitamin D), 1 TAB PO HS Ferrous Sulfate (Ferrous Sulfate), 325 MG PO BID Furosemide (Furosemide), 20 MG PO QAM Glycopyrrolate (Inhalation) (Lonhala Magnair Refill Ki), 2 PUFFS INH BID Home O2 Therapy (Oxygen), 2 LITERS NA CONT Pantoprazole (Protonix), 40 MG PO BID Potassium Ext Rel (Klor-Con), 20 MEQ PO QAM Ranitidine HCl (Ranitidine HCl), 150 MG PO BID Roflumilast (Daliresp), 1 TAB PO QAM Sertraline (Zoloft), 100 MG PO HS Scheduled PRN Albuterol Hfa (Ventolin Hfa), 2 PUFFS INH Q6H PRN for Shortness of Breath Lorazepam (Lorazepam), 1 MG PO TID PRN for Anxiety Ondansetron (Ondansetron HCl), 4 MG PO Q6H PRN for Nausea or Vomiting Physical Exam Vital Signs Date Time Temp Pulse Resp B/P (MAP) Pulse Ox O2 Delivery O2 Flow Rate FiO2 09/15/17 15:04 87 18 133/80 97 Nasal Cannula 2.0 09/15/17 13:57 Nasal Cannula 2.0 09/15/17 13:11 36.9 122 22 127/71 95 Nasal Cannula 2.0 Physical Exam GENERAL: 67-year-old female, in moderate respiratory distress,, SKIN: The skin was without rashes, erythema, edema, or bruising. HEAD: Normocephalic atraumatic. EYES:Conjunctivae without injection, sclerae without icterus. Extraocular movements intact. MOUTH: Mucous membranes slightly dry tonsils are not enlarged. Pharynx without erythema or exudate. Uvula midline. Airway patent. Tongue does not deviate. NECK: Supple without nuchal rigidity. No lymphadenopathy. Cervical spine is nontender. No JVD. HEART: Tachycardic, regular rhythm without murmurs gallops or rubs. LUNGS: Diffuse wheeze in all lung becerra. Tachypnea noted. No crackles at the bases. ABDOMEN: Positive bowel sounds x 4. MUSCULOSKELETAL: No muscle atrophy, erythema, or edema noted. Strength 5/5 throughout. NEURO: Patient was alert and oriented to person place and time. Normal sensation to touch. No focal neurological deficits. Medical Decision & Procedures ER Provider Diagnostic Interpretation: Chest x-ray IMPRESSION: No acute process. Electronically signed by: Livan Torres M.D. 09/15/2017 2:29 PM Dictated Date/Time: 09/15/2017 2:24 PM The status of this report is Signed. Draft = Not yet reviewed or approved by Radiologist. Signed = Reviewed and approved by Radiologist. <AttendingPhy></AttendingPhy> <FamilyPhy>North Clemons MD</FamilyPhy> <PrimaryPhy>North Clemons MD</PrimaryPhy> <UnitNumber>[id number]</ UnitNumber> <VisitNumber>[id number]</VisitNumber> <PatientName>GRADY KINGSTONYCE Yasir</ PatientName> <DateOfBirth>1950</DateOfBirth> <Location>[facility]</Location> < ServiceDate>09/15/17</ServiceDate> <MNE>ESINDI</MNE> <OrderingPhy>[facility] Results 09/15/17 13:53 Red Blood Count 4.46, Mean Corpuscular Volume 80.5, Mean Corpuscular Hemoglobin 25.3, Mean Corpuscular Hemoglobin Concent 31.5, Mean Platelet Volume 8.8, Neutrophils (%) (Auto) 57.3, Lymphocytes (%) (Auto) 30.8, Monocytes (%) (Auto) 6.0, Eosinophils (%) (Auto) 5.7, Basophils (%) (Auto) 0.1, Neutrophils # (Auto) 3.90, Lymphocytes # (Auto) 2.10, Monocytes # (Auto) 0.41, Eosinophils # (Auto) 0.39, Basophils # (Auto) 0.01 09/15/17 13:53 Test 09/15/17 13:53 White Blood Count 6.82 K/uL (4.8-10.8) Red Blood Count 4.46 M/uL (4.2-5.4) Hemoglobin 11.3 g/dL (12.0-16.0) Hematocrit 35.9 % (37-47) Mean Corpuscular Volume 80.5 fL (80-100) Mean Corpuscular Hemoglobin 25.3 pg (25-34) Mean Corpuscular Hemoglobin Concent 31.5 g/dl (32-36) Platelet Count 319 K/uL (130-400) Mean Platelet Volume 8.8 fL (7.4-10.4) Neutrophils (%) (Auto) 57.3 % Lymphocytes (%) (Auto) 30.8 % Monocytes (%) (Auto) 6.0 % Eosinophils (%) (Auto) 5.7 % Basophils (%) (Auto) 0.1 % Neutrophils # (Auto) 3.90 K/uL (1.4-6.5) Lymphocytes # (Auto) 2.10 K/uL (1.2-3.4) Monocytes # (Auto) 0.41 K/uL (0.11-0.59) Eosinophils # (Auto) 0.39 K/uL (0-0.5) Basophils # (Auto) 0.01 K/uL (0-0.2) RDW Standard Deviation 48.6 fL (36.4-46.3) RDW Coefficient of Variation 16.5 % (11.5-14.5) Immature Granulocyte % (Auto) 0.1 % Immature Granulocyte # (Auto) 0.01 K/uL (0.00-0.02) Anion Gap 9.0 mmol/L (3-11) Est Creatinine Clear Calc Drug Dose 61.0 ml/min Estimated GFR () 77.2 Estimated GFR (Non- 66.6 BUN/Creatinine Ratio 7.9 (10-20) Calcium Level 8.9 mg/dl (8.5-10.1) Medications Administered Medications (Trade) Dose Ordered Sig/Edis Route Start Time Stop Time Status Last Admin Dose Admin Methylprednisolone Sodium Succinate (Solu-Medrol IV) 125 mg NOW STAT IV 09/15/17 13:23 09/15/17 13:26 DC 09/15/17 13:23 125 MG Albuterol/ Ipratropium (Duoneb) 3 ml ONE STAT INH 09/15/17 13:23 09/15/17 13:26 DC 09/15/17 13:23 3 ML Sodium Chloride 500 ml @ 999 mls/hr Q31M STAT IV 09/15/17 13:41 7/21/18 14:11 DC 09/15/17 13:41 999 MLS/HR Azithromycin 500 mg/Dextrose 255 ml @ 125 mls/hr ONE ONCE IV 09/15/17 15:00 09/15/17 17:02 09/15/17 15:27 125 MLS/HR Albuterol/ Ipratropium (Duoneb) 3 ml ONE STAT INH 09/15/17 14:54 09/15/17 14:55 DC 09/15/17 15:26 3 ML ECG Per My Interpretation Indication: SOB/dyspnea Rate (beats per minute): 106 Rhythm: sinus tachycardia Change: no significant change ED Course Patient was seen and examined Vital signs including blood pressure were reviewed medications list was verified with patient Labs were obtained, and a saline lock was established The patient was medicated with Solu-Medrol 125 mg IV. She was given in DuoNeb treatment Imaging was performed and reviewed The case was discussed with my supervising physician who personally evaluated the patient The patient was reassessed and feeling no better. She was ordered another DuoNeb. She was also ordered Zithromax 500 mg IV. We discussed her workup. She voiced understanding. The case was then discussed with the special education case manager. The case was then discussed with the [facility] who kindly agreed to evaluate the patient for possible admission. Medical Decision Differential diagnosis: Acute on chronic respiratory failure, COPD exacerbation , pneumonia, bronchitis, pulmonary embolus, cardiac ischemia, among others were entertained This patient is a 59-year-old female that presents to the emergency department with significant shortness of breath and a productive cough with clear sputum over the last week. On exam, she was tachypneic and tachycardic. She had diffuse wheezing throughout all lung becerra. Chest x-ray was negative for pneumonia. Given her history of COPD, the patient was covered with IV steroids and azithromycin. She was also given 2 nebulizer treatments. Unfortunately, the patient did not have any symptomatic relief in the emergency department. For this reason, the [facility] was consulted. They kindly agreed to evaluate the patient for further management. This chart was completed in part utilizing [employer] Voice Recognition software. Attempts were made to minimize the grammatical errors, random word insertions, pronoun errors and incomplete sentences. Any formal questions or concerns about the content, text or information contained within the body of this dictation should be directly addressed to the provider for clarification. Medication Reconcilliation Current Medication List: was personally reviewed by me Blood Pressure Screening Patient's blood pressure: Normal blood pressure Impression Primary Impression: COPD (chronic obstructive pulmonary disease) Departure Information Referrals North Clemons MD (PCP) Patient Instructions [facility]
[2017-09-15 14:31] LABS: CALCIUM 8.9 mg/dl (8.5-10.1); CREATININE 0.89 mg/dl (0.60-1.20); POTASSIUM 3.5 mmol/L (3.5-5.1)
--- NOTE | 2017-09-15 14:31 | DIAGNOSTIC IMAGING REPORT ---
CHEST 2 VIEWS ROUTINE HISTORY: cough hx COPD COMPARISON: Chest 09/10/2017. FINDINGS: The lungs are clear. Cardiac silhouette is normal in size. No pleural effusions. No pneumothorax. IMPRESSION: No acute process. Electronically signed by: Livan Torres M.D. 09/15/2017 2:29 PM Dictated Date/Time: 09/15/2017 2:24 PM
[2017-09-15] MEDS ORDERED: AZITHROMYCIN IV 500 MG in DEXTROSE 5% 250ML 250 ML IV ONE (15:00)
--- NOTE | 2017-09-15 15:01 | EMERGENCY ROOM VISIT NOTE ---
ED Visit Note First contact with patient: 13:13 Patient was seen by our PA/SHEET MILL SUPERVISOR. I was involved in the patient's care and did evaluate the patient myself. I was involved in the care throughout the ER stay. The patient appears to have a bronchitis with a flare of COPD. She does typically wear oxygen. Her vital signs have improved since treatment. Patient is being assessed for a possible hospital stay.
--- NOTE | 2017-09-15 15:30 | History and Physical ---
History & Physical Date & Time of Service: Sep 15, 2017 at 15:30 Chief Complaint: SOB Primary Care Physician: [place] MD History of Present Illness Source: patient This is a 67 yr female with PMH of COPD with chronic respiratory failure on home O2, excessive dynamic airway collapse (EDAC), prior Tobacco use, sleep apnea-Not using CPAP as recommended , hypertension, hyperlipidemia, GERD, chronic anemia, and other problems presents with history of worsening shortness of breath and cough with clear expectoration since 4 days duration. Reports having 2 episodes of vomiting secondary to cough. Denies any hemoptysis. Also reports diarrhea 2 days ago which currently resolved. She follows with Dr. Casper for COPD as outpatient. She wears 2 L of oxygen via nasal cannula at all times. She is not using CPAP as recommended. She quit smoking 4 years ago. Reports intermittent dizziness which has been chronic. Denies any history of chest pain, diaphoresis, fever, chills, headache, abdominal pain, blood in stools, dysuria, recent travel, sick contact, recent change in medications or antibiotic use. Past Medical/Surgical History Medical Problems: (1) Acute bronchitis (2) Acute bronchitis (3) Acute bronchitis (4) Alcohol dependence in remission (5) Benign neoplasm of colon (6) Bronchitis (7) Chest wall pain (8) Chronic bronchitis (9) Chronic respiratory failure with hypoxia (10) COPD (chronic obstructive pulmonary disease) (11) COPD exacerbation (12) COPD exacerbation (13) COPD exacerbation (14) COPD exacerbation (15) COPD exacerbation (16) COPD exacerbation (17) COPD exacerbation (18) COPD exacerbation (19) COPD, moderate (20) Cough (21) Cough (22) Cystic Kidney Disease, Unspecified (23) Dizzy (24) Dysfunctional gallbladder (25) Excessive dynamic airway collapse (26) Fever (27) GERD (gastroesophageal reflux disease) (28) History of aspiration pneumonia (29) Hyperlipidemia (30) Hypertension Nos (31) Hypokalemia (32) IBS (irritable bowel syndrome) (33) Obstructive sleep apnea (34) PUD (peptic ulcer disease) (35) Right-sided chest wall pain (36) Rotator cuff insufficiency of left shoulder (37) Shortness of breath (38) Strain of right trapezius muscle (39) Thoracic aortic ectasia (40) Urinary tract infection (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) (42) Vomiting and diarrhea Surgical Problems: (1) H/O cervical spine surgery (2) H/O colonoscopy (3) H/O hysterectomy with oophorectomy (4) History of cataract surgery (5) S/P appendectomy (6) S/P bronchoscopy (7) S/p exploration of abdomen (8) S/p left sided discectomy, L3-4 (9) S/P lumbar spinal fusion (10) S/p lumbar spine revision (11) S/P tonsillectomy Family History Blood clots MOTHER Cardiac disorder BROTHER (congenital heart disease) FH: CHF (congestive heart failure) MOTHER FH: heart disease MOTHER GRANDMOTHER FH: lung disease Hypertension Reviewed as above Social History Smoking Status: Former Smoker Alcohol Use: none Drug Use: none Marital Status: single Occupational Status: retired Immunizations History of Influenza Vaccine: Yes Influenza Vaccine Date: Dec 16, 2015 History of Tetanus Vaccine?: Yes Tetanus Immunization Date: Sep 08, 2009 History of Pneumococcal: Yes Pneumococcal Date: Mar 17, 2014 Allergies Coded Allergies: No Known Allergies (Verified , 09/15/17) PER PATIENT Home Medications Scheduled Albuterol Sulf (Proventil 0.083% 2.5MG/3ML), 2.5 MG INH QID Alendronate Sodium (Fosamax), 1 TAB PO WK Ascorbic Acid (Vitamin C), 1 CAP PO HS Atorvastatin (Lipitor), 10 MG PO HS Cholecalciferol (Vitamin D), 2 TAB PO QAM Cholecalciferol (Vitamin D), 1 TAB PO HS Ferrous Sulfate (Ferrous Sulfate), 325 MG PO BID Furosemide (Furosemide), 20 MG PO QAM Glycopyrrolate (Inhalation) (Lonhala Magnair Refill Ki), 2 PUFFS INH BID Home O2 Therapy (Oxygen), 2 LITERS NA CONT Pantoprazole (Protonix), 40 MG PO BID Potassium Ext Rel (Klor-Con), 20 MEQ PO QAM Ranitidine HCl (Ranitidine HCl), 150 MG PO BID Roflumilast (Daliresp), 1 TAB PO QAM Sertraline (Zoloft), 100 MG PO HS Scheduled PRN Albuterol Hfa (Ventolin Hfa), 2 PUFFS INH Q6H PRN for Shortness of Breath Lorazepam (Lorazepam), 1 MG PO TID PRN for Anxiety Ondansetron (Ondansetron HCl), 4 MG PO Q6H PRN for Nausea or Vomiting Review of Systems See HPI for pertinent positives & negatives. A total of 10 systems reviewed and were otherwise negative. Physical Exam Vital Signs Date Time Temp Pulse Resp B/P (MAP) Pulse Ox O2 Delivery O2 Flow Rate FiO2 09/15/17 15:04 87 18 133/80 97 Nasal Cannula 2.0 09/15/17 13:57 Nasal Cannula 2.0 09/15/17 13:11 36.9 122 22 127/71 95 Nasal Cannula 2.0 General Appearance: WD/WN, + pertinent finding (Mild distress secondary to intractable cough) Head: normocephalic, atraumatic Eyes: normal inspection, PERRL, EOMI, sclerae normal ENT: normal ENT inspection, hearing grossly normal Neck: supple, trachea midline Respiratory/Chest: chest non-tender, no accessory muscle use, + decreased breath sounds, + wheezing (Bilaterally) Cardiovascular: regular rate, rhythm, no edema, no murmur Abdomen/GI: normal bowel sounds, non tender, soft Back: normal inspection Extremities/Musculoskelatal: normal inspection, no pedal edema Neurologic/Psych: final expense agent II-XII nml as tested, no motor/sensory deficits, alert, normal mood/affect, oriented x 3 Skin: normal color, warm/dry Diagnostics Laboratory Results Results Past 24 Hours Test 09/15/17 13:53 Range/Units White Blood Count 6.82 4.8-10.8 K/uL Red Blood Count 4.46 4.2-5.4 M/uL Hemoglobin 11.3 12.0-16.0 g/dL Hematocrit 35.9 37-47 % Mean Corpuscular Volume 80.5 80-100 fL Mean Corpuscular Hemoglobin 25.3 25-34 pg Mean Corpuscular Hemoglobin Concent 31.5 32-36 g/dl Platelet Count 319 130-400 K/uL Mean Platelet Volume 8.8 7.4-10.4 fL Neutrophils (%) (Auto) 57.3 % Lymphocytes (%) (Auto) 30.8 % Monocytes (%) (Auto) 6.0 % Eosinophils (%) (Auto) 5.7 % Basophils (%) (Auto) 0.1 % Neutrophils # (Auto) 3.90 1.4-6.5 K/uL Lymphocytes # (Auto) 2.10 1.2-3.4 K/uL Monocytes # (Auto) 0.41 0.11-0.59 K/uL Eosinophils # (Auto) 0.39 0-0.5 K/uL Basophils # (Auto) 0.01 0-0.2 K/uL RDW Standard Deviation 48.6 36.4-46.3 fL RDW Coefficient of Variation 16.5 11.5-14.5 % Immature Granulocyte % (Auto) 0.1 % Immature Granulocyte # (Auto) 0.01 0.00-0.02 K/uL Sodium Level 141 136-145 mmol/L Potassium Level 3.5 3.5-5.1 mmol/L Chloride Level 104 98-107 mmol/L Carbon Dioxide Level 28 21-32 mmol/L Anion Gap 9.0 3-11 mmol/L Blood Urea Nitrogen 7 7-18 mg/dl Creatinine 0.89 0.60-1.20 mg/dl Est Creatinine Clear Calc Drug Dose 61.0 ml/min Estimated GFR () 77.2 Estimated GFR (Non- 66.6 BUN/Creatinine Ratio 7.9 10-20 Random Glucose 89 70-99 mg/dl Calcium Level 8.9 8.5-10.1 mg/dl Diagnostic Radiology CXR: No acute process. EKG EKG:Pending Impression Assessment and Plan Acute COPD Exacerbation Chronic Respiratory failure with hypoxia Chronic Oxygen Dependency: 2 liters at baseline H/O excessive dynamic airway collapse (EDAC) h/o ELÍAS: Not using CPAP as recommended H/O Multiple Admissions in the past with COPD exacerbations CXR: no signs of consolidation Start on Augmentin IV solumedrol, bronchodilators Get sputum culture and gram strain Oxygen support per protocol Continue home budesonide nebs, Daliresp Follow with as outpatient Consult Pulmonology for Input HTN: Stable continue furosemide Chronic Anemia: Hb at baseline Continue Iron Supplements GERD Continue Protonix and Zantac Depression/Anxiety Continue Zoloft and Ativan Prior Tobacco use disorder DVT Px Lovenox SQ Disposition Expect to discharge home when stable Resuscitation Status VTE Prophylaxis Will order VTE Prophylaxis: Yes
[2017-09-15] MEDS ORDERED: ONDANSETRON INJ 2 MG/ML 2 ML VIAL IV PRN (16:00)
[2017-09-15] MEDS ORDERED: FRRS300 PO (16:16)
[2017-09-15] MEDS ORDERED: BENZONATATE 100MG CAP PO PRN (16:30)
[2017-09-15 17:36] VITALS: BP 121/82; PULSE 98; TEMP 36.8; O2SAT 92
[2017-09-15 17:40] VITALS: O2SAT 92; Ht 172.7 cm; Wt 74.8 kg
[2017-09-15] MEDS: AMOXICILLIN/CLAVULANATE TAB 875 MG TAB PO SCH (18:46)
[2017-09-15] MEDS: FERROUS SULFATE 325 MG TAB PO SCH (18:46)
[2017-09-15] MEDS: ASCORBIC ACID 500 MG TAB PO SCH (21:56)
[2017-09-15] MEDS: CHOLECALCIFEROL 1000 INTER.UNIT TAB PO SCH (21:57)
[2017-09-15] MEDS: RANITIDINE HCL 150 MG TAB PO SCH (21:58)
[2017-09-15] MEDS: PANTOprazole SOD 40 MG TAB PO SCH (21:58)
[2017-09-15] MEDS: SERTRALINE HCL 100 MG TAB PO SCH (21:59)
[2017-09-15] MEDS: ATORVASTATIN 10 MG TAB PO SCH (21:59)
[2017-09-15] MEDS: ENOXAPARIN 40 MG/0.4 ML SYR SQ SCH (22:01)
[2017-09-15] MEDS: METHYLPREDNISOLONE IV 40 MG in SYRINGE 0 ML IV SCH (22:02)
[2017-09-15] MEDS: LORAZEPAM 1 MG TAB PO PRN (22:10)
[2017-09-15] MEDS: ACETAMINOPHEN 325 MG TAB PO PRN (22:11)
[2017-09-15] MEDS: ALBUT/IPRATROP 3MG/0.5MG NEB 3 ML VIAL INH SCH (22:18)
[2017-09-15 22:19] VITALS: PULSE 103; O2SAT 98
[2017-09-16] VITALS (9 sets, daily range): BP systolic 124–138; BP diastolic 71–81; PULSE 80–101; TEMP 36.7–36.9; O2SAT 93–98
[2017-09-16] MEDS: METHYLPREDNISOLONE IV 40 MG in SYRINGE 0 ML IV SCH ×3 (05:50→21:24)
[2017-09-16 06:40] LABS: HEMATOCRIT 34.6 % (37-47); HEMOGLOBIN 10.8 g/dL (12.0-16.0); MEAN CELL VOLUME 79.5 fL (80-100); MEAN CORPUSCULAR HEMOGLOBIN 24.8 pg (25-34); MEAN CORPUSCULAR HGB CONC 31.2 g/dl (32-36); PLATELET COUNT 329 K/uL (130-400); RED CELL DISTRIBUTION WIDTH CV 16.4 % (11.5-14.5); RED CELL DISTRIBUTION WIDTH SD 48.2 fL (36.4-46.3); WHITE BLOOD COUNT 4.81 K/uL (4.8-10.8)
[2017-09-16] MEDS: ALBUT/IPRATROP 3MG/0.5MG NEB 3 ML VIAL INH SCH ×4 (07:11→19:00)
[2017-09-16 07:13] LABS: CALCIUM 9.1 mg/dl (8.5-10.1); CREATININE 0.7 mg/dl (0.60-1.20); POTASSIUM 4.1 mmol/L (3.5-5.1)
[2017-09-16] MEDS ORDERED: ALBUTEROL 0.083% NEBU SOLN 3 ML VIAL INH PRN (07:30)
[2017-09-16] MEDS: ROFLUMILAST 500 MCG TAB PO SCH (07:56)
[2017-09-16] MEDS: AMOXICILLIN/CLAVULANATE TAB 875 MG TAB PO SCH ×2 (07:56→17:53)
[2017-09-16] MEDS: CHOLECALCIFEROL 1000 INTER.UNIT TAB PO SCH ×2 (07:56→21:22)
[2017-09-16] MEDS: FUROSEMIDE 20 MG TAB PO SCH (07:56)
[2017-09-16] MEDS: POTASSIUM CHLORIDE 20 MEQ TABCR PO SCH (07:57)
[2017-09-16] MEDS: RANITIDINE HCL 150 MG TAB PO SCH ×2 (07:57→21:22)
[2017-09-16] MEDS: PANTOprazole SOD 40 MG TAB PO SCH ×2 (07:57→21:22)
[2017-09-16] MEDS: FERROUS SULFATE 325 MG TAB PO SCH ×2 (07:57→17:53)
[2017-09-16] MEDS: BUDESONIDE 0.5 MG/2 ML VIAL (PULMICORT) INH SCH ×2 (08:00→19:01)
[2017-09-16] MEDS: LORAZEPAM 1 MG TAB PO PRN ×3 (08:01→21:23)
[2017-09-16] MEDS: AZITHROMYCIN 250 MG TAB PO SCH (09:47)
--- NOTE | 2017-09-16 11:23 | PULMONARY CONSULTATION ---
DATE OF CONSULTATION: 09/16/2017 TIME: 7:10 a.m. REPORT OF CONSULTATION: The patient was seen in room 258, bed 1. She is a 67-year-old female with a longstanding history of COPD. She has had numerous exacerbations, particularly in the past 2 years. She has undergone approximately 5 bronchoscopies in the past. She was last in the ER on 08/17 with an exacerbation of COPD. Since that time, she had been doing reasonably well. Approximately 4 or 5 days ago, she had a marked worsening of her cough. The cough for the most part is nonproductive, but occasionally she will bring up a small amount of clear sputum. She actually expectorated when I was with her and what she brought out actually was just saliva. She is coughing almost incessantly. She has had wheezing. She is short of breath with any exertion at all. She presented to the Emergency Room yesterday and was felt to require admission because she was not getting relief. She has not had any chest pain recently. She has not had any chills or fevers. She does get sweaty at times of coughing paroxysms. She states she has been off of prednisone for about 1 month. I do not believe that is correct; however, as she was in ER on 08/17 and they had prescribed for her to take prednisone for 12 more days. I do not know if she has been ever maintained on a low-dose of prednisone on a continual fashion. She states that the time she has had bronchoscopy, did not seem to improve her symptoms. It had been noted at the time of bronchoscopy that she had excessive dynamic airway collapse. The patient also has a history of sleep apnea. It was relatively mild. She has been on CPAP, but not tolerating it. Her major issue was the mask. She states they have tried a couple of different masks, but she cannot get comfortable. I did explain to her that with the EDAC, treatment with CPAP may be of benefit. The patient does have a long prior history of smoking. She quit smoking in 2013 after having had a 40-pack year history. PAST MEDICAL HISTORY: 1. Chronic kidney disease. 2. Esophageal motility problems. 3. Hyperlipidemia. 4. Hypertension. 5. Irritable bowel. 6. Prior ETOH abuse. 7. Tiny lung nodules. 8. COPD as noted. 9. Sleep apnea as noted. PAST SURGICAL HISTORY: 1. Tonsillectomy. 2. Hysterectomy. 3. Appendectomy. 4. Cervical spine surgery. 5. Cataract surgery. 6. Lumbar spine surgery. 7. Exploratory abdominal laparoscopy. FAMILY HISTORY: Mother had a history of blood clots, heart disease, and congestive heart failure. Brother had congenital heart disease. ALLERGIES: No known allergies. MEDICATIONS AT HOME: 1. Ventolin HFA p.r.n. 2. Nebs with albuterol q.i.d. 3. Lonhala Magnair twice a day. 4. Daliresp 500 mg daily. 5. Ranitidine 150 mg b.i.d. 6. Pantoprazole 40 mg b.i.d. 7. Fosamax 70 mg weekly. 8. Vitamin C 500 mg daily. 9. Atorvastatin 10 mg at bedtime. 10. Vitamin D two tabs daily and 1 at bedtime. 11. Ferrous sulfate 325 mg b.i.d. 12. Furosemide 20 mg daily. 13. O2 2 liter nasal cannula continuous. 14. Lorazepam 1 mg t.i.d. p.r.n. 15. Ondansetron 4 mg p.r.n. 16. Potassium 20 mEq daily. REVIEW OF SYSTEMS: In addition to the complaints noted in the history of present illness, the patient does have intermittent back pains. She states she has had intermittent chest pains, which are not believed to be cardiac. She has urinary stress incontinence associated with coughing. Energy level is decreased. The remainder of systems is otherwise negative except as noted. Ten systems reviewed. PHYSICAL EXAMINATION: GENERAL: The patient is a 67-year-old female who was cooperative, alert, and oriented. She was coughing very frequently. VITAL SIGNS: Temperature is 36.7. She has not had any fevers since admission. HEENT: Eye exam showed implants bilaterally. Nares were clear. Nasal cannula was in place. Mouth exam showed dentures top and bottom. There was no evidence of oral candidiasis. NECK: Palpation of the neck reveals no lymph nodes or masses. CHEST: Shows a mild kyphosis. HEART: Rate is 88 per minute. Rhythm was regular. Blood pressure 137/71. LUNGS: Lung becerra revealed diffuse wheezing bilaterally. Respiratory rate was 24 per minute, but she was coughing excessively during the exam. She was not using accessory muscles of respiration. Saturation was 98% on 2 liters. ABDOMEN: Inspection of the abdomen reveals multiple scars from prior surgeries. Bowel sounds were present and were normal. There was no tenderness to palpation, masses, or organomegaly. EXTREMITIES: Showed no cyanosis, clubbing, or edema. Chest x-ray was clear with no acute process. LABORATORY DATA: White count is 4.81. Hemoglobin 10.8. Platelets are 329,000. Electrolytes show sodium 141, potassium 4.1, chloride 106, bicarbonate 27. The BUN was 7 with a creatinine of 0.89. IMPRESSION: 1. Chronic obstructive pulmonary disease with exacerbation. 2. Obstructive sleep apnea -- untreated. 3. Excessive dynamic airway collapse. 4. History of esophageal dysmotility. COMMENTS AND RECOMMENDATIONS: The patient is having significant coughing. At the time of my exam, she states she had not had a treatment since last evening. I believe she will need some p.r.n. nebulizer treatments in addition to the q.i.d. scheduled treatments. She is on Augmentin orally. It would appear that she has not been on any inhaled steroids at home. This needs to be verified. Previously, I believe she had been on budesonide. She has not noticed any cough relief from the benzonatate Perles. We will increase the dose of the Perles somewhat to see if that helps. It is unknown if she has had a long-term trial of azithromycin either once daily or 3 times per week. That might be an alternative consideration for an anti-inflammatory benefit. We will follow this patient with you. Thank you for asking me to assist in her care.
--- NOTE | 2017-09-16 11:43 | Progress Note ---
Internal Med Progress Note Date of Service: Sep 16, 2017. Provider Documentation: SUBJECTIVE: Seen and examined at bedside SOB slightly improved Still as significant cough with expectoration Denies chest pain, dizziness No other complaints OBJECTIVE: Vital Signs-as noted below Physical Exam: General Appearance:Moderately built and nourished, no apparent distress Head: normocephalic, Atraumatic Eyes: normal inspection, EOMI, PERRL Neck: supple, Trachea midline Respiratory/Chest: Decreased breath sounds, B/L Wheezes Cardiovascular: S1, S2, No murmur Abdomen/GI:Soft, Non tender, Bowel sounds present Extremities/Musculoskelatal:normal inspection, no edema Neurologic/Psych:AAOX3, grossly no focal neurological deficits Skin: normal color, warm Lab data as noted below. ASSESSMENT & PLAN: Acute COPD Exacerbation Chronic Respiratory failure with hypoxia Chronic Oxygen Dependency: 2 liters at baseline H/O excessive dynamic airway collapse (EDAC) h/o ELÍAS: Not using CPAP as recommended H/O Multiple Admissions in the past with COPD exacerbations CXR: no signs of consolidation Continue Augmentin, Also started on long-term trial of azithromycin IV solumedrol, bronchodilators Added Budesonide Oxygen support per protocol Continue home nebs, Daliresp Follow with as outpatient Appreciate Pulmonology Input HTN: Stable continue furosemide Chronic Anemia: Hb at baseline Continue Iron Supplements GERD Continue Protonix and Zantac Depression/Anxiety Continue Zoloft and Ativan Prior Tobacco use disorder DVT Px Lovenox SQ Disposition Expect to discharge home when stable Vital Signs: Date Time Temp Pulse Resp B/P (MAP) Pulse Ox O2 Delivery O2 Flow Rate FiO2 09/16/17 11:14 98 20 98 Nasal Cannula 2.0 09/16/17 10:31 80 96 09/16/17 08:00 Nasal Cannula 2.0 09/16/17 07:25 36.7 88 22 127/81 (96) 98 Nasal Cannula 2.0 09/16/17 07:11 88 20 98 Nasal Cannula 2.0 09/16/17 00:00 Nasal Cannula 2.0 09/16/17 00:00 36.7 99 18 137/71 (93) 93 2.0 09/15/17 22:19 103 20 98 Nasal Cannula 2.0 09/15/17 17:40 92 Room Air 2.0 09/15/17 17:36 36.8 98 18 121/82 (95) 92 Room Air 09/15/17 17:13 77 18 123/77 96 09/15/17 15:04 87 18 133/80 97 Nasal Cannula 2.0 09/15/17 13:57 Nasal Cannula 2.0 09/15/17 13:11 36.9 122 22 127/71 95 Nasal Cannula 2.0 Lab Results: Results Past 24 Hours Test 09/15/17 13:53 09/16/17 06:19 Range/Units White Blood Count 6.82 4.81 4.8-10.8 K/uL Red Blood Count 4.46 4.35 4.2-5.4 M/uL Hemoglobin 11.3 10.8 12.0-16.0 g/dL Hematocrit 35.9 34.6 37-47 % Mean Corpuscular Volume 80.5 79.5 80-100 fL Mean Corpuscular Hemoglobin 25.3 24.8 25-34 pg Mean Corpuscular Hemoglobin Concent 31.5 31.2 32-36 g/dl Platelet Count 319 329 130-400 K/uL Mean Platelet Volume 8.8 9.0 7.4-10.4 fL Neutrophils (%) (Auto) 57.3 % Lymphocytes (%) (Auto) 30.8 % Monocytes (%) (Auto) 6.0 % Eosinophils (%) (Auto) 5.7 % Basophils (%) (Auto) 0.1 % Neutrophils # (Auto) 3.90 1.4-6.5 K/uL Lymphocytes # (Auto) 2.10 1.2-3.4 K/uL Monocytes # (Auto) 0.41 0.11-0.59 K/uL Eosinophils # (Auto) 0.39 0-0.5 K/uL Basophils # (Auto) 0.01 0-0.2 K/uL RDW Standard Deviation 48.6 48.2 36.4-46.3 fL RDW Coefficient of Variation 16.5 16.4 11.5-14.5 % Immature Granulocyte % (Auto) 0.1 % Immature Granulocyte # (Auto) 0.01 0.00-0.02 K/uL Sodium Level 141 141 136-145 mmol/L Potassium Level 3.5 4.1 3.5-5.1 mmol/L Chloride Level 104 106 98-107 mmol/L Carbon Dioxide Level 28 27 21-32 mmol/L Anion Gap 9.0 8.0 3-11 mmol/L Blood Urea Nitrogen 7 11 7-18 mg/dl Creatinine 0.89 0.70 0.60-1.20 mg/dl Est Creatinine Clear Calc Drug Dose 61.0 77.6 ml/min Estimated GFR () 77.2 103.2 Estimated GFR (Non- 66.6 89.0 BUN/Creatinine Ratio 7.9 15.2 10-20 Random Glucose 89 130 70-99 mg/dl Calcium Level 8.9 9.1 8.5-10.1 mg/dl Magnesium Level 2.3 1.8-2.4 mg/dl
[2017-09-16] MEDS: BENZONATATE 100MG CAP PO SCH ×2 (14:09→21:24)
[2017-09-16] MEDS: ACETAMINOPHEN 325 MG TAB PO PRN (16:05)
[2017-09-16] MEDS: GUAIFENESIN SUGAR FREE 100 MG/5 ML UDC PO PRN (17:52)
[2017-09-16] MEDS: NYSTATIN SUSP 500,000 U/5 ML UDC PO SCH ×2 (17:53→21:24)
[2017-09-16] MEDS: ENOXAPARIN 40 MG/0.4 ML SYR SQ SCH (21:21)
[2017-09-16] MEDS: ASCORBIC ACID 500 MG TAB PO SCH (21:22)
[2017-09-16] MEDS: SERTRALINE HCL 100 MG TAB PO SCH (21:22)
[2017-09-16] MEDS: ATORVASTATIN 10 MG TAB PO SCH (21:22)
[2017-09-16] MEDS: TRAMADOL HCL 50 MG TAB PO PRN (21:23)
[2017-09-17] VITALS (7 sets, daily range): BP systolic 141–146; BP diastolic 45–81; PULSE 91–99; TEMP 36.7–37; O2SAT 96–99
[2017-09-17] MEDS: GUAIFENESIN SUGAR FREE 100 MG/5 ML UDC PO PRN ×3 (00:12→22:00)
[2017-09-17] MEDS: ALBUT/IPRATROP 3MG/0.5MG NEB 3 ML VIAL INH SCH ×5 (05:22→19:45)
[2017-09-17] MEDS: METHYLPREDNISOLONE IV 40 MG in SYRINGE 0 ML IV SCH ×3 (05:52→21:08)
[2017-09-17] MEDS: BENZONATATE 100MG CAP PO SCH ×3 (05:53→21:08)
[2017-09-17] MEDS ORDERED: SODIUM CHLORIDE 0.65% NA SOLN 45 ML (OCEAN) PRN (06:00)
[2017-09-17 06:09] LABS: HEMATOCRIT 33.5 % (37-47); HEMOGLOBIN 10.3 g/dL (12.0-16.0); MEAN CELL VOLUME 80.5 fL (80-100); MEAN CORPUSCULAR HEMOGLOBIN 24.8 pg (25-34); MEAN CORPUSCULAR HGB CONC 30.7 g/dl (32-36); MEAN PLATELET VOLUME 8.9 fL (7.4-10.4); PLATELET COUNT 345 K/uL (130-400); RED CELL DISTRIBUTION WIDTH CV 17.2 % (11.5-14.5); RED CELL DISTRIBUTION WIDTH SD 51.1 fL (36.4-46.3); WHITE BLOOD COUNT 12.48 K/uL (4.8-10.8)
[2017-09-17 06:35] LABS: CALCIUM 9.5 mg/dl (8.5-10.1); CREATININE 0.78 mg/dl (0.60-1.20); POTASSIUM 3.8 mmol/L (3.5-5.1)
[2017-09-17] MEDS: BUDESONIDE 0.5 MG/2 ML VIAL (PULMICORT) INH SCH ×2 (07:13→19:46)
--- NOTE | 2017-09-17 08:04 | Clinical Documentation Query ---
CLINICAL DOCUMENTATION QUERY Dr. MARTINEZ, In your clinical opinion does this patient have: ( X ) Chronic kidney disease, stage 2 ( ) Not Agree ( ) Other explanation of clinical findings (No explanation is considered a No Response) ( ) Unable to determine ( ) Need to Discuss (Phone CDS or qliq) (No discussion is considered a No Response) The medical record reflects the following clinical findings, treatment, and risk factors. Clinical Indicators: 67 yo female presenting with COPD exacerbation. Pulmonary consult lists Chronic Kidney Disease in pt's PMH. Review of historical GFR indicates pt with range of 65.3-89 over the past 1 year Treatment: monitor PRP's, treat comorbid conditions. Risk Factors: age, COPD, chronic respiratory failure, HTN Please clarify and document your clinical opinion in the progress notes and discharge summary. Terms such as "probable", "suspected", "likely", "questionable", "possible", or "still to be ruled out" are acceptable. IF IN AGREEMENT, YOU MUST DOCUMENT ABOVE DIAGNOSTIC STATEMENT IN DAILY PROGRESS NOTES AND DISCHARGE SUMMARY. This document is not part of the patient's record. Thank You, Nallely Bonilla RN [phone]
[2017-09-17] MEDS: RANITIDINE HCL 150 MG TAB PO SCH ×2 (08:10→21:08)
[2017-09-17] MEDS: CHOLECALCIFEROL 1000 INTER.UNIT TAB PO SCH ×2 (08:10→21:08)
[2017-09-17] MEDS: AZITHROMYCIN 250 MG TAB PO SCH (08:10)
[2017-09-17] MEDS: FUROSEMIDE 20 MG TAB PO SCH (08:10)
[2017-09-17] MEDS: AMOXICILLIN/CLAVULANATE TAB 875 MG TAB PO SCH ×2 (08:10→17:03)
[2017-09-17] MEDS: PANTOprazole SOD 40 MG TAB PO SCH ×2 (08:10→21:07)
[2017-09-17] MEDS: TRAMADOL HCL 50 MG TAB PO PRN ×3 (08:11→22:00)
[2017-09-17] MEDS: FERROUS SULFATE 325 MG TAB PO SCH ×2 (08:11→17:03)
[2017-09-17] MEDS: LORAZEPAM 1 MG TAB PO PRN ×2 (08:11→22:00)
[2017-09-17] MEDS: ROFLUMILAST 500 MCG TAB PO SCH (08:11)
[2017-09-17] MEDS: POTASSIUM CHLORIDE 20 MEQ TABCR PO SCH (08:11)
[2017-09-17] MEDS: NYSTATIN SUSP 500,000 U/5 ML UDC PO SCH ×4 (08:11→21:07)
--- NOTE | 2017-09-17 10:10 | PULMONARY PROGRESS NOTE ---
DATE: 09/17/2017 TIME: 9:45 a.m. SUBJECTIVE: The patient is still coughing very frequently. She feels it is about the same as yesterday. Likewise, her degree of shortness of breath she says is the same. Thus far, she has not had a dramatic response to the various modalities that have been employed. OBJECTIVE: GENERAL: The patient was coughing fairly frequently. When I first came into the room, she was in the restroom. She did not appear short of breath. She is afebrile with temperature of 36.7. ENT: Unchanged. HEART: Heart rate was 120 per minute at the time of my exam. The rhythm was regular. As noted, she had just been in the bathroom and I believe the increased heart rate was due to the exertion of going from her bed to the bathroom and back. Blood pressure is 146/45. LUNGS: Lung becerra revealed [id number] wheeze. I did not believe she was as tight as yesterday. She was still coughing quite frequently. Respiratory rate was 22 breaths per minute. Oxygen saturation was 99% on 2 liters. EXTREMITIES: Showed no cyanosis, clubbing, or edema. LABORATORY DATA: White count today is elevated at 12.48. This may well be the steroid effect. Yesterday white count was 4.81. Hemoglobin is 10.3. Platelets are 345,000. Electrolytes show sodium 143, potassium 3.8, chloride 107, bicarbonate 28. BUN was 14 with a creatinine of 0.78. IMPRESSIONS: 1. Chronic obstructive pulmonary disease with exacerbation. 2. Obstructive sleep apnea - untreated. 3. Excessive dynamic airway collapse. 4. Intractable cough. COMMENTS AND RECOMMENDATIONS: Would continue with her current regimen of steroids, bronchodilators, and antibiotics. I did review her CAT scan of the chest done most recently in April which did not show anything of significance that might account for her cough. She has had a video swallow that was negative as well. She has been awaiting sinus surgery that is tentatively planned for later this month. If she does not significantly improve from a respiratory perspective, that procedure will need to be delayed. I did review the CAT scan of the sinuses. Although it was abnormal, I am not convinced that the sinuses alone are accounting for her symptoms.
--- NOTE | 2017-09-17 11:26 | Progress Note ---
Internal Med Progress Note Date of Service: Sep 17, 2017. Provider Documentation: SUBJECTIVE: Seen and examined at bedside States SOB and cough is about the same as yesterday Less wheezing on exam when compared to yesterday Denies chest pain, dizziness No other complaints OBJECTIVE: Vital Signs-as noted below Physical Exam: General Appearance:Moderately built and nourished, no apparent distress Head: normocephalic, Atraumatic Eyes: normal inspection, EOMI, PERRL Neck: supple, Trachea midline Respiratory/Chest: Decreased breath sounds, CTA Cardiovascular: S1, S2, No murmur Abdomen/GI:Soft, Non tender, Bowel sounds present Extremities/Musculoskelatal:normal inspection, no edema Neurologic/Psych:AAOX3, grossly no focal neurological deficits Skin: normal color, warm Lab data as noted below. ASSESSMENT & PLAN: Acute COPD Exacerbation Chronic Respiratory failure with hypoxia Chronic Oxygen Dependency: 2 liters at baseline H/O excessive dynamic airway collapse (EDAC) h/o ELÍAS: Not using CPAP as recommended H/O Multiple Admissions in the past with COPD exacerbations CXR: no signs of consolidation Continue Augmentin, Also started on long-term trial of azithromycin IV solumedrol, bronchodilators Added Budesonide Oxygen support per protocol Continue home nebs, Daliresp Follow with as outpatient Pulmonology following Continue current management HTN: Stable continue furosemide Chronic Anemia: Hb at baseline Continue Iron Supplements GERD Continue Protonix and Zantac Depression/Anxiety Continue Zoloft and Ativan Prior Tobacco use disorder DVT Px Lovenox SQ Disposition Expect to discharge home when stable Vital Signs: Date Time Temp Pulse Resp B/P (MAP) Pulse Ox O2 Delivery O2 Flow Rate FiO2 09/17/17 08:00 Nasal Cannula 2.0 09/17/17 07:52 36.7 91 18 146/45 (78) 99 2.0 09/17/17 07:13 97 20 98 Nasal Cannula 2.0 09/17/17 05:22 99 22 98 Nasal Cannula 2.0 09/17/17 00:00 Nasal Cannula 2.0 09/16/17 23:55 36.9 96 20 138/75 (96) 95 Nasal Cannula 2.0 09/16/17 19:02 101 18 98 Nasal Cannula 2.0 09/16/17 18:00 Nasal Cannula 2.0 09/16/17 14:59 36.9 92 16 124/71 (88) 95 Nasal Cannula 2.0 09/16/17 14:55 96 20 98 Nasal Cannula 2.0 Lab Results: Results Past 24 Hours Test 09/17/17 05:49 Range/Units White Blood Count 12.48 4.8-10.8 K/uL Red Blood Count 4.16 4.2-5.4 M/uL Hemoglobin 10.3 12.0-16.0 g/dL Hematocrit 33.5 37-47 % Mean Corpuscular Volume 80.5 80-100 fL Mean Corpuscular Hemoglobin 24.8 25-34 pg Mean Corpuscular Hemoglobin Concent 30.7 32-36 g/dl RDW Standard Deviation 51.1 36.4-46.3 fL RDW Coefficient of Variation 17.2 11.5-14.5 % Platelet Count 345 130-400 K/uL Mean Platelet Volume 8.9 7.4-10.4 fL Sodium Level 143 136-145 mmol/L Potassium Level 3.8 3.5-5.1 mmol/L Chloride Level 107 98-107 mmol/L Carbon Dioxide Level 28 21-32 mmol/L Anion Gap 8.0 3-11 mmol/L Blood Urea Nitrogen 14 7-18 mg/dl Creatinine 0.78 0.60-1.20 mg/dl Est Creatinine Clear Calc Drug Dose 69.6 ml/min Estimated GFR () 90.5 Estimated GFR (Non- 78.1 BUN/Creatinine Ratio 18.3 10-20 Random Glucose 123 70-99 mg/dl Calcium Level 9.5 8.5-10.1 mg/dl Magnesium Level 2.2 1.8-2.4 mg/dl Microbiology Results 09/16/17 Gram Stain - Final, Resulted 09/16/17 Sputum Culture - Preliminary, Resulted LIGHT NORMAL KARI Present, Final Rep...
[2017-09-17] MEDS: ACETAMINOPHEN 325 MG TAB PO PRN (16:50)
[2017-09-17] MEDS: ASCORBIC ACID 500 MG TAB PO SCH (21:07)
[2017-09-17] MEDS: ENOXAPARIN 40 MG/0.4 ML SYR SQ SCH (21:07)
[2017-09-17] MEDS: ATORVASTATIN 10 MG TAB PO SCH (21:07)
[2017-09-17] MEDS: SERTRALINE HCL 100 MG TAB PO SCH (21:08)
[2017-09-18] VITALS (11 sets, daily range): BP systolic 134–145; BP diastolic 74–80; PULSE 78–110; TEMP 36.8–37; O2SAT 94–99
[2017-09-18] MEDS: BENZONATATE 100MG CAP PO SCH ×3 (05:37→21:24)
[2017-09-18] MEDS: METHYLPREDNISOLONE IV 40 MG in SYRINGE 0 ML IV SCH ×3 (05:37→21:24)
[2017-09-18] MEDS: GUAIFENESIN SUGAR FREE 100 MG/5 ML UDC PO PRN ×2 (06:12→16:54)
[2017-09-18 07:07] LABS: HEMOGLOBIN 10.3 g/dL (12.0-16.0); MEAN CELL VOLUME 80.9 fL (80-100); MEAN CORPUSCULAR HEMOGLOBIN 25.2 pg (25-34); MEAN CORPUSCULAR HGB CONC 31.2 g/dl (32-36); MEAN PLATELET VOLUME 8.9 fL (7.4-10.4); PLATELET COUNT 343 K/uL (130-400); RED CELL DISTRIBUTION WIDTH CV 17.5 % (11.5-14.5); RED CELL DISTRIBUTION WIDTH SD 51.9 fL (36.4-46.3); WHITE BLOOD COUNT 13.67 K/uL (4.8-10.8)
[2017-09-18] MEDS: ALBUT/IPRATROP 3MG/0.5MG NEB 3 ML VIAL INH SCH ×5 (07:13→23:49)
[2017-09-18] MEDS: BUDESONIDE 0.5 MG/2 ML VIAL (PULMICORT) INH SCH ×2 (07:14→19:05)
[2017-09-18 07:36] LABS: CALCIUM 8.9 mg/dl (8.5-10.1); CREATININE 0.78 mg/dl (0.60-1.20); POTASSIUM 4.1 mmol/L (3.5-5.1)
[2017-09-18] MEDS: CHOLECALCIFEROL 1000 INTER.UNIT TAB PO SCH ×2 (07:49→21:19)
[2017-09-18] MEDS: LORAZEPAM 1 MG TAB PO PRN ×2 (07:49→21:21)
[2017-09-18] MEDS: PANTOprazole SOD 40 MG TAB PO SCH ×2 (07:49→21:18)
[2017-09-18] MEDS: FERROUS SULFATE 325 MG TAB PO SCH ×2 (07:49→16:54)
[2017-09-18] MEDS: RANITIDINE HCL 150 MG TAB PO SCH ×2 (07:49→21:19)
[2017-09-18] MEDS: TRAMADOL HCL 50 MG TAB PO PRN ×2 (07:50→21:21)
[2017-09-18] MEDS: POTASSIUM CHLORIDE 20 MEQ TABCR PO SCH (07:50)
[2017-09-18] MEDS: FUROSEMIDE 20 MG TAB PO SCH (07:50)
[2017-09-18] MEDS: AZITHROMYCIN 250 MG TAB PO SCH (07:50)
[2017-09-18] MEDS: ROFLUMILAST 500 MCG TAB PO SCH (07:50)
[2017-09-18] MEDS: NYSTATIN SUSP 500,000 U/5 ML UDC PO SCH ×4 (07:50→21:20)
[2017-09-18] MEDS: AMOXICILLIN/CLAVULANATE TAB 875 MG TAB PO SCH ×2 (07:50→16:54)
--- NOTE | 2017-09-18 17:30 | PULMONARY PROGRESS NOTE ---
DATE: 09/18/2017 PULMONARY PROGRESS NOTE TIME: 5:10 p.m. SUBJECTIVE: The patient is still coughing very frequently. She does feel that she is less short of breath today. She thinks she is wheezing less. She brought up a small amount of phlegm today. OBJECTIVE: GENERAL: The patient is still coughing quite frequently. She is eating at present, however. She does not think eating makes her cough worse. VITAL SIGNS: Temperature is 36.8. CARDIAC: Heart rate at the time of my exam is 108 per minute. The rhythm is regular. I believe her rate is up because she is coughing. Blood pressure is 134/76. LUNGS: Auscultation of the lung becerra reveals still moderate wheeze bilaterally. This was predominantly on expiration. Respiratory rate is 24 breaths per minute at this time. Saturation is 94% on 2 liters. EXTREMITIES: Showed no cyanosis, clubbing or edema. LABORATORY DATA: White count today is 13.67. It is rising likely due to steroids. Hemoglobin 10.3. Platelets 343,000. IMPRESSIONS: 1. Chronic obstructive pulmonary disease with exacerbation. 2. Intractable cough. 3. Obstructive sleep apnea - untreated. 4. Excessive dynamic airway collapse. COMMENTS AND RECOMMENDATIONS: The patient feels a little better, but still is coughing quite severely. This is despite being on benzonatate Perles. She remains on methylprednisolone 40 mg IV q. 8 hours as well as budesonide by nebulizer. She is also on albuterol/ipratropium. She is on Augmentin and Zantac. I will check a ProBNP in the event she might be having some CHF although I think that is less likely. Could consider giving her some cough medicine with codeine-like med. This might especially benefit her at nighttime, perhaps. She has had several episodes in the past 2 years of exacerbation of COPD, some of which took quite a few days to improve. It is difficult to determine if the esophageal motility problems have anything to do with her symptoms. AMARA
--- NOTE | 2017-09-18 18:06 | Progress Note ---
Progress Note Date of Service Sep 18, 2017. Progress Note SUBJECTIVE: Seen and examined at bedside. Has coughing. denies being able to bring up sputum. Denies being significantly short of breath. Denies chest pain. OBJECTIVE: Physical Exam: General Appearance: uncomfortable when coughing Head: normocephalic, Atraumatic Eyes: normal inspection, EOMI, Neck: supple, Trachea midline Respiratory/Chest: Decreased breath sounds, mild wheezes Cardiovascular: S1, S2, No murmur Abdomen/GI:Soft, Non tender, Bowel sounds present Extremities/Musculoskelatal:normal inspection, no edema Neurologic/Psych:AAOX3, grossly no focal neurological deficits ASSESSMENT & PLAN: Acute COPD Exacerbation Chronic Respiratory failure with hypoxia Chronic Oxygen Dependency: 2 liters at baseline H/O excessive dynamic airway collapse (EDAC) h/o ELÍAS: Not using CPAP as recommended H/O Multiple Admissions in the past with COPD exacerbations Intractable cough CXR: no signs of consolidation remains on methylprednisolone 40 mg IV q. 8 hours, bronchodilators of albuterol/ ipratropirum and budesonide, Augmentin and Azithromycin. Pulmonology service added cough syrup with hydrocodone HTN: Stable continue furosemide Chronic Anemia: Hgb at baseline Continue Iron Supplements GERD Continue Protonix and Zantac Depression/Anxiety Continue Zoloft and Ativan Prior Tobacco use DVT Px Lovenox SQ
[2017-09-18] MEDS: ATORVASTATIN 10 MG TAB PO SCH (21:18)
[2017-09-18] MEDS: SERTRALINE HCL 100 MG TAB PO SCH (21:19)
[2017-09-18] MEDS: ENOXAPARIN 40 MG/0.4 ML SYR SQ SCH (21:20)
[2017-09-18] MEDS: ASCORBIC ACID 500 MG TAB PO SCH (21:20)
[2017-09-18] MEDS: HYDROCODONE/HOMATROPINE SYRUP 5MG/1.5MG 5ML UDP PO PRN (21:23)
[2017-09-18] MEDS: ACETAMINOPHEN 325 MG TAB PO PRN (23:42)
[2017-09-19] VITALS (10 sets, daily range): BP systolic 132–157; BP diastolic 74–78; PULSE 65–119; TEMP 36.6–37.1; O2SAT 91–98
[2017-09-19] MEDS: HYDROCODONE/HOMATROPINE SYRUP 5MG/1.5MG 5ML UDP PO PRN ×3 (04:56→21:31)
[2017-09-19] MEDS: ALBUT/IPRATROP 3MG/0.5MG NEB 3 ML VIAL INH SCH ×5 (05:23→19:04)
[2017-09-19] MEDS: BENZONATATE 100MG CAP PO SCH ×3 (06:02→20:35)
[2017-09-19] MEDS: LORAZEPAM 1 MG TAB PO PRN ×3 (06:02→21:32)
[2017-09-19] MEDS: METHYLPREDNISOLONE IV 40 MG in SYRINGE 0 ML IV SCH (06:02)
[2017-09-19] MEDS: BUDESONIDE 0.5 MG/2 ML VIAL (PULMICORT) INH SCH ×2 (07:08→19:04)
[2017-09-19] MEDS: PANTOprazole SOD 40 MG TAB PO SCH ×2 (07:55→20:34)
[2017-09-19] MEDS: RANITIDINE HCL 150 MG TAB PO SCH ×2 (07:55→20:34)
[2017-09-19] MEDS: NYSTATIN SUSP 500,000 U/5 ML UDC PO SCH ×4 (07:55→20:35)
[2017-09-19] MEDS: CHOLECALCIFEROL 1000 INTER.UNIT TAB PO SCH ×2 (07:55→20:33)
[2017-09-19] MEDS: ROFLUMILAST 500 MCG TAB PO SCH (07:56)
[2017-09-19] MEDS: AMOXICILLIN/CLAVULANATE TAB 875 MG TAB PO SCH ×2 (07:56→17:31)
[2017-09-19] MEDS: FUROSEMIDE 20 MG TAB PO SCH (07:56)
[2017-09-19] MEDS: AZITHROMYCIN 250 MG TAB PO SCH (07:57)
[2017-09-19] MEDS: FERROUS SULFATE 325 MG TAB PO SCH ×2 (07:57→17:31)
--- NOTE | 2017-09-19 13:10 | PULMONARY PROGRESS NOTE ---
DATE: 09/19/2017 TIME: 12:50 p.m. SUBJECTIVE: The patient continues to cough. It is not quite as aggressive today. She was started on some Hycodan syrup. She did get some at 4:56 a.m. She states that she awakened with coughing and shortness of breath. She states that they gave her a nebulizer treatment as well. OBJECTIVE: GENERAL: She was resting comfortably when I came into the room. She did start coughing as we talked. She had finished lunch already. VITAL SIGNS: She remains afebrile. Heart rate is 80 per minute. Blood pressure 132/74. LUNGS: Lung becerra reveal fairly good breath sounds without wheezing at present. She was coughing periodically. Saturation was 98% on 2-liter nasal cannula. EXTREMITIES: Showed no cyanosis, clubbing or edema. IMPRESSIONS: 1. Chronic obstructive pulmonary disease exacerbation. 2. Intractable cough. 3. EDAC - excessive dynamic airway collapse. 4. Untreated sleep apnea. COMMENTS AND RECOMMENDATIONS: The patient seems to be slightly better today. It appears that the methylprednisolone was stopped today by the hospitalist team. She did, however, get a dose this morning. Would continue with her bronchodilators as present. The patient indicated that historically she has been getting these episodes. They typically have been lasting longer and longer. As noted, she has had a number of hospitalizations for this problem over the past 2 years or so. I am going to check a d dimer. She had a normal d dimer in 2017. I could not find evidence of prior CTA. Will assess the d dimer and if significantly abnormal will need CTA. AMARA
--- NOTE | 2017-09-19 19:38 | Progress Note ---
Progress Note Date of Service Sep 19, 2017. Progress Note SUBJECTIVE: Seen and examined at bedside. Has coughing still persistently. Patient lost IV access today. She agreed to transition to prednisone. Patient denies vomiting OBJECTIVE: Physical Exam: General Appearance: uncomfortable when coughing Head: normocephalic, Atraumatic Eyes: normal inspection, EOMI, Neck: supple, Trachea midline Respiratory/Chest: Decreased breath sounds, mild wheezes Cardiovascular: S1, S2, No murmur Abdomen/GI:Soft, Non tender, Bowel sounds present Extremities/Musculoskelatal:normal inspection, no edema Neurologic/Psych:AAOX3, grossly no focal neurological deficits ASSESSMENT & PLAN: Acute COPD Exacerbation Chronic Respiratory failure with hypoxia Chronic Oxygen Dependency: 2 liters at baseline H/O excessive dynamic airway collapse (EDAC) h/o ELÍAS: Not using CPAP as recommended H/O Multiple Admissions in the past with COPD exacerbations Intractable cough CXR: no signs of consolidation bronchodilators of albuterol/ipratropirum and budesonide, Augmentin and Azithromycin. transitioned from methylprednisone to oral prednisone cough syrup with hydrocodone, continue Tessalon Perles pulmonary service ordered D-dimer which was normal will order follow up chest X ray to compare to admission CXR on 09/15/17 HTN: Stable continue furosemide Chronic Anemia: Hgb at baseline Continue Iron Supplements GERD Continue Protonix and Zantac Depression/Anxiety Continue Zoloft and Ativan Prior Tobacco use DVT Px Lovenox SQ
[2017-09-19] MEDS: ASCORBIC ACID 500 MG TAB PO SCH (20:32)
[2017-09-19] MEDS: ENOXAPARIN 40 MG/0.4 ML SYR SQ SCH (20:32)
[2017-09-19] MEDS: ATORVASTATIN 10 MG TAB PO SCH (20:33)
[2017-09-19] MEDS: SERTRALINE HCL 100 MG TAB PO SCH (20:34)
[2017-09-19] MEDS: TRAMADOL HCL 50 MG TAB PO PRN (20:43)
[2017-09-20] VITALS (10 sets, daily range): BP systolic 121–197; BP diastolic 72–78; PULSE 68–98; TEMP 36.7–36.8; O2SAT 93–99
[2017-09-20] MEDS: ALBUT/IPRATROP 3MG/0.5MG NEB 3 ML VIAL INH SCH ×5 (05:23→19:25)
[2017-09-20] MEDS: HYDROCODONE/HOMATROPINE SYRUP 5MG/1.5MG 5ML UDP PO PRN ×3 (05:42→20:59)
[2017-09-20] MEDS: BENZONATATE 100MG CAP PO SCH ×2 (05:43→13:20)
[2017-09-20] MEDS: BUDESONIDE 0.5 MG/2 ML VIAL (PULMICORT) INH SCH ×2 (08:00→19:25)
[2017-09-20] MEDS: AMOXICILLIN/CLAVULANATE TAB 875 MG TAB PO SCH ×2 (08:21→17:09)
[2017-09-20] MEDS: ROFLUMILAST 500 MCG TAB PO SCH (08:21)
[2017-09-20] MEDS: NYSTATIN SUSP 500,000 U/5 ML UDC PO SCH ×4 (08:22→20:28)
[2017-09-20] MEDS: AZITHROMYCIN 250 MG TAB PO SCH (08:22)
[2017-09-20] MEDS: FERROUS SULFATE 325 MG TAB PO SCH ×2 (08:22→17:08)
[2017-09-20] MEDS: RANITIDINE HCL 150 MG TAB PO SCH ×2 (08:23→20:29)
[2017-09-20] MEDS: FUROSEMIDE 20 MG TAB PO SCH (08:23)
[2017-09-20] MEDS: CHOLECALCIFEROL 1000 INTER.UNIT TAB PO SCH ×2 (08:23→20:29)
[2017-09-20] MEDS: PANTOprazole SOD 40 MG TAB PO SCH ×2 (08:23→20:53)
[2017-09-20] MEDS: LORAZEPAM 1 MG TAB PO PRN ×2 (08:27→20:53)
--- NOTE | 2017-09-20 09:04 | DIAGNOSTIC IMAGING REPORT ---
CHEST 2 VIEWS ROUTINE CLINICAL HISTORY: chronic cough, COPD, rule out infiltrates dyspnea COMPARISON STUDY: 09/15/2017 FINDINGS: The bones soft tissues and hemidiaphragms are normal. The cardiomediastinal silhouette is normal. The lungs are clear. The pulmonary vasculature is normal. IMPRESSION: Negative chest. The above report was generated using voice recognition software. It may contain grammatical, syntax or spelling errors. Electronically signed by: Nagi Hunt M.D. 09/20/2017 7:57 AM Dictated Date/Time: 09/20/2017 7:57 AM
--- NOTE | 2017-09-20 14:44 | PULMONARY PROGRESS NOTE ---
DATE: 09/20/2017 TIME: 2:05 p.m. SUBJECTIVE: The patient is still coughing. It is about the same as yesterday. It is somewhat less than on admission. The cough is nonproductive. She states that therapy has been walking her. To walk around the hallway, she usually stops twice. OBJECTIVE: GENERAL: The patient appears comfortable except for the coughing. She states she is very tired. She also states her stomach hurts from coughing. VITAL SIGNS: Temperature is 36.7. Heart rate is 87 per minute. Rhythm is regular. Blood pressure 131/78. LUNGS: Lung becerra revealed mild wheeze bilaterally. Saturation is 99% on 2 liters. Respiratory rate 20. EXTREMITIES: Showed no cyanosis, clubbing or edema. IMPRESSIONS: 1. Intractable cough. 2. Chronic obstructive pulmonary disease exacerbation. 3. Untreated sleep apnea. 4. Excessive dynamic airway collapse. COMMENTS AND RECOMMENDATIONS: The patient has not responded substantially to all of the various modalities undertaken. She is known to have chronic sinus disease and is awaiting sinus surgery. However, it appears she cannot go through with the surgery next week because of her recent exacerbation. In addition to being treated with antibiotics and steroids which might ordinarily help her sinus disease, she is getting extensive bronchodilator therapy for the COPD. She also has reflux medication and significant doses with both pantoprazole and ranitidine. She has had numerous bronchoscopies which did not help. I have asked the patient if she ever had Neurontin in the past. She did have it for neuropathy. She states it made her very sleepy. We could give consideration to a treatment trial of Neurontin in lower doses to see if this might help with the cough. The patient is agreeable with this plan. I am going to change her Perles to p.r.n.
--- NOTE | 2017-09-20 19:06 | Progress Note ---
Progress Note Date of Service Sep 20, 2017. Progress Note SUBJECTIVE: Seen and examined at bedside. Has coughing still persistently. Patient denies vomiting. Denies abdominal or chest pain OBJECTIVE: Physical Exam: General Appearance: uncomfortable when coughing Head: normocephalic, Atraumatic Eyes: normal inspection, EOMI, Neck: supple, Trachea midline Respiratory/Chest: Decreased breath sounds, mild wheezes Cardiovascular: S1, S2, No murmur Abdomen/GI:Soft, Non tender, Bowel sounds present Extremities/Musculoskelatal:normal inspection, no edema Neurologic/Psych:AAOX3, grossly no focal neurological deficits ASSESSMENT & PLAN: Acute COPD Exacerbation Chronic Respiratory failure with hypoxia Chronic Oxygen Dependency: 2 liters at baseline H/O excessive dynamic airway collapse (EDAC) h/o ELÍAS: Not using CPAP as recommended H/O Multiple Admissions in the past with COPD exacerbations Intractable cough CXR: no signs of consolidation on admission repeat Xhest X ray pulmonary service ordered D-dimer which was normal bronchodilators of albuterol/ipratropirum and budesonide, daliresp, Augmentin and Azithromycin. oral prednisone cough syrup with hydrocodone, Tessalon Perles prn pulmonary service added gabapentin to try to alleviate coughing symptoms HTN: Stable continue furosemide Chronic Anemia: Hgb at baseline Continue Iron Supplements GERD Continue Protonix and Zantac Depression/Anxiety Continue Zoloft and Ativan DVT Px Lovenox SQ
[2017-09-20] MEDS: ENOXAPARIN 40 MG/0.4 ML SYR SQ SCH (20:28)
[2017-09-20] MEDS: SERTRALINE HCL 100 MG TAB PO SCH (20:29)
[2017-09-20] MEDS: GABAPENTIN 100 MG CAP PO SCH (20:29)
[2017-09-20] MEDS: ASCORBIC ACID 500 MG TAB PO SCH (20:29)
[2017-09-20] MEDS: ATORVASTATIN 10 MG TAB PO SCH (20:53)
[2017-09-20] MEDS: TRAMADOL HCL 50 MG TAB PO PRN (20:54)
[2017-09-21] VITALS (8 sets, daily range): BP systolic 109–136; BP diastolic 71–76; PULSE 76–100; TEMP 36.4–37; O2SAT 94–98
[2017-09-21] MEDS: BUDESONIDE 0.5 MG/2 ML VIAL (PULMICORT) INH SCH ×2 (07:07→18:55)
[2017-09-21] MEDS: ALBUT/IPRATROP 3MG/0.5MG NEB 3 ML VIAL INH SCH ×4 (07:07→18:55)
[2017-09-21] MEDS: LORAZEPAM 1 MG TAB PO PRN ×2 (08:04→20:06)
[2017-09-21] MEDS: HYDROCODONE/HOMATROPINE SYRUP 5MG/1.5MG 5ML UDP PO PRN ×2 (08:05→20:09)
[2017-09-21] MEDS: TRAMADOL HCL 50 MG TAB PO PRN ×2 (08:05→20:06)
[2017-09-21] MEDS: GABAPENTIN 100 MG CAP PO SCH ×3 (08:06→20:00)
[2017-09-21] MEDS: ROFLUMILAST 500 MCG TAB PO SCH (08:06)
[2017-09-21] MEDS: AZITHROMYCIN 250 MG TAB PO SCH (08:06)
[2017-09-21] MEDS: FUROSEMIDE 20 MG TAB PO SCH (08:07)
[2017-09-21] MEDS: NYSTATIN SUSP 500,000 U/5 ML UDC PO SCH ×4 (08:07→20:02)
[2017-09-21] MEDS: FERROUS SULFATE 325 MG TAB PO SCH ×2 (08:07→17:26)
[2017-09-21] MEDS: AMOXICILLIN/CLAVULANATE TAB 875 MG TAB PO SCH ×2 (08:07→17:26)
[2017-09-21] MEDS: RANITIDINE HCL 150 MG TAB PO SCH ×2 (09:25→20:02)
[2017-09-21] MEDS: CHOLECALCIFEROL 1000 INTER.UNIT TAB PO SCH ×2 (09:25→20:00)
[2017-09-21] MEDS: PANTOprazole SOD 40 MG TAB PO SCH ×2 (09:25→20:01)
--- NOTE | 2017-09-21 10:53 | PULMONARY PROGRESS NOTE ---
DATE: 09/21/2017 TIME: 10:30 a.m. SUBJECTIVE: The patient's cough is significantly improved today. I suspect this is not related to the fact that we started gabapentin yesterday. She would have received only one dose, which would be too fast to see if that would be helping. I suspect her other medicines are finally just kicking in and she is feeling better. She still notices some wheezing. The patient feels a little weak on her feet. She is hoping to walk today, but feels she needs nursing assistance. OBJECTIVE: GENERAL: The patient is comfortable. She did not cough during my evaluation except when I asked her to take deep breaths. VITAL SIGNS: Temperature is 36.7. Heart rate was 100 per minute. Today, it sounded as if she might have slight gallop. Blood pressure is 136/74. LUNGS: Lung becerra revealed mild wheeze bilaterally. Respiratory rate was 18. Saturation was 94% on 2 liters. EXTREMITIES: Showed no cyanosis, clubbing or edema. LABORATORY DATA: No labs have been done today. IMPRESSIONS: 1. Intractable cough. 2. Chronic obstructive pulmonary disease with exacerbation. 3. Untreated sleep apnea. COMMENTS AND RECOMMENDATIONS: The patient is much better today. She still feels weak. She indicated she did not feel comfortable going home because she feels weak. We need to get nursing to ambulate her today so that hopefully by tomorrow, she will be ready to go. On the exam today, I thought I heard a gallop. She does not recall when she last had an echo. There is none noted through our outpatient office. She may have had them through Dr. Clemons before. Perhaps, it would be worth checking when that happened last. If it has been a significant period of time since her last echo, obtaining one may be of value. I do not think this represents acute congestive heart failure, however. Her BNP done on the was within the limits of normal at 751. When she is discharged, I would not send her home on the gabapentin. This was just given as a trial for cough. She seems to have improved before the gabapentin might have helped. We should discourage using the Hycodan syrup unless absolutely necessary. Would consider discharging her on azithromycin 250 mg on Sunday, Sunday, Sunday as a trial. Would give her a slow taper on the prednisone. I am doubtful that she will need outpatient antibiotics. She has been on antibiotics since admission.
[2017-09-21] MEDS: BENZONATATE 100MG CAP PO PRN (12:19)
--- NOTE | 2017-09-21 17:33 | Progress Note ---
Progress Note Date of Service Sep 21, 2017. Progress Note SUBJECTIVE: Seen and examined at bedside. Today patient reports that her coughing is feeling better. She reports her breathing is about the same. Patient reports that she is walking. Patient denies vomiting OBJECTIVE: Physical Exam: General Appearance: uncomfortable when coughing Head: normocephalic, Atraumatic Eyes: normal inspection, EOMI, Neck: supple, Trachea midline Respiratory/Chest: less wheezing today Cardiovascular: S1, S2, No murmur Abdomen/GI:Soft, Non tender, Bowel sounds present Extremities/Musculoskelatal:normal inspection, no edema Neurologic/Psych:AAOX3, grossly no focal neurological deficits ASSESSMENT & PLAN: Acute COPD Exacerbation Chronic Respiratory failure with hypoxia Chronic Oxygen Dependency: 2 liters at baseline H/O excessive dynamic airway collapse (EDAC) h/o ELÍAS: Not using CPAP as recommended H/O Multiple Admissions in the past with COPD exacerbations Intractable cough CXR: no signs of consolidation on admission repeat chest X ray pulmonary service ordered D-dimer which was normal bronchodilators of albuterol/ipratropirum and budesonide, daliresp, Augmentin and Azithromycin. oral prednisone cough syrup with hydrocodone, Tessalon Perles prn trial of gabapentin to try to alleviate coughing symptoms HTN: Stable continue furosemide Chronic Anemia: Hgb at baseline Continue Iron Supplements GERD Continue Protonix and Zantac Depression/Anxiety Continue Zoloft and Ativan DVT Px Lovenox SQ
[2017-09-21] MEDS: SERTRALINE HCL 100 MG TAB PO SCH (20:01)
[2017-09-21] MEDS: ASCORBIC ACID 500 MG TAB PO SCH (20:01)
[2017-09-21] MEDS: ATORVASTATIN 10 MG TAB PO SCH (20:01)
[2017-09-21] MEDS: ENOXAPARIN 40 MG/0.4 ML SYR SQ SCH (20:04)
[2017-09-21] MEDS: ACETAMINOPHEN 325 MG TAB PO PRN (23:40)
[2017-09-22] VITALS (7 sets, daily range): BP systolic 126–151; BP diastolic 75–84; PULSE 78–106; TEMP 36.6–36.9; O2SAT 92–98
[2017-09-22] MEDS: ALBUT/IPRATROP 3MG/0.5MG NEB 3 ML VIAL INH SCH ×4 (07:04→19:08)
[2017-09-22] MEDS: BUDESONIDE 0.5 MG/2 ML VIAL (PULMICORT) INH SCH (07:04)
[2017-09-22] MEDS: CHOLECALCIFEROL 1000 INTER.UNIT TAB PO SCH ×2 (07:41→19:40)
[2017-09-22] MEDS: FUROSEMIDE 20 MG TAB PO SCH (07:42)
[2017-09-22] MEDS: PANTOprazole SOD 40 MG TAB PO SCH ×2 (07:42→19:41)
[2017-09-22] MEDS: RANITIDINE HCL 150 MG TAB PO SCH ×2 (07:42→19:41)
[2017-09-22] MEDS: AZITHROMYCIN 250 MG TAB PO SCH ×2 (07:43→08:00)
[2017-09-22] MEDS: FERROUS SULFATE 325 MG TAB PO SCH ×2 (07:43→17:04)
[2017-09-22] MEDS: GABAPENTIN 100 MG CAP PO SCH ×3 (07:43→19:42)
[2017-09-22] MEDS: ROFLUMILAST 500 MCG TAB PO SCH (07:43)
[2017-09-22] MEDS: AMOXICILLIN/CLAVULANATE TAB 875 MG TAB PO SCH ×2 (07:43→17:04)
[2017-09-22] MEDS: NYSTATIN SUSP 500,000 U/5 ML UDC PO SCH ×4 (07:44→19:40)
[2017-09-22] MEDS: LORAZEPAM 1 MG TAB PO PRN ×2 (07:47→19:47)
[2017-09-22] MEDS: TRAMADOL HCL 50 MG TAB PO PRN ×2 (08:38→22:39)
[2017-09-22] MEDS ORDERED: NURSING VERBAL MED ORDER ONE (12:00)
[2017-09-22] MEDS ORDERED: ONDANSETRON 4MG OD TAB ONE (12:47)
[2017-09-22] MEDS ORDERED: ONDANSETRON 4 MG TAB PO PRN (14:00)
--- NOTE | 2017-09-22 19:00 | Progress Note ---
Progress Note Date of Service Sep 22, 2017. Progress Note SUBJECTIVE: Seen and examined at bedside. Today patient reports coughing is worse. Shortness of breath has not improved compared to admission OBJECTIVE: Physical Exam: General Appearance: uncomfortable when coughing Head: normocephalic, Atraumatic Eyes: normal inspection, EOMI, Neck: supple, Trachea midline Respiratory/Chest: less wheezing today Cardiovascular: S1, S2, No murmur Abdomen/GI:Soft, Non tender, Bowel sounds present Extremities/Musculoskelatal:normal inspection, no edema Neurologic/Psych:AAOX3, grossly no focal neurological deficits ASSESSMENT & PLAN: Acute COPD Exacerbation Chronic Respiratory failure with hypoxia Chronic Oxygen Dependency: 2 liters at baseline H/O excessive dynamic airway collapse (EDAC) h/o ELÍAS: Not using CPAP as recommended H/O Multiple Admissions in the past with COPD exacerbations Intractable cough CXR: no signs of consolidation on admission repeat chest X ray pulmonary service ordered D-dimer which was normal bronchodilators of albuterol/ipratropirum and budesonide, daliresp, Augmentin and Azithromycin. oral prednisone cough syrup with hydrocodone, Tessalon Perles prn continue trial of gabapentin to try to alleviate coughing symptoms HTN: Stable continue furosemide Chronic Anemia: Hgb at baseline Continue Iron Supplements GERD Continue Protonix and Zantac Depression/Anxiety Continue Zoloft and Ativan DVT Px Lovenox SQ
[2017-09-22] MEDS: ASCORBIC ACID 500 MG TAB PO SCH (19:41)
[2017-09-22] MEDS: SERTRALINE HCL 100 MG TAB PO SCH (19:41)
[2017-09-22] MEDS: ATORVASTATIN 10 MG TAB PO SCH (19:41)
[2017-09-22] MEDS: ENOXAPARIN 40 MG/0.4 ML SYR SQ SCH (19:49)
[2017-09-22] MEDS: HYDROCODONE/HOMATROPINE SYRUP 5MG/1.5MG 5ML UDP PO PRN (22:39)
[2017-09-23] VITALS (8 sets, daily range): BP systolic 107–139; BP diastolic 68–81; PULSE 75–89; TEMP 36.7–37; O2SAT 96–98
[2017-09-23] MEDS: ACETAMINOPHEN 325 MG TAB PO PRN ×2 (00:07→09:06)
[2017-09-23] MEDS: BUDESONIDE 0.5 MG/2 ML VIAL (PULMICORT) INH SCH ×2 (07:07→19:03)
[2017-09-23] MEDS: ALBUT/IPRATROP 3MG/0.5MG NEB 3 ML VIAL INH SCH ×4 (07:07→19:05)
[2017-09-23] MEDS: LORAZEPAM 1 MG TAB PO PRN ×2 (07:33→20:40)
[2017-09-23] MEDS: TRAMADOL HCL 50 MG TAB PO PRN ×2 (07:33→23:20)
[2017-09-23] MEDS: FERROUS SULFATE 325 MG TAB PO SCH ×2 (07:34→17:04)
[2017-09-23] MEDS: FUROSEMIDE 20 MG TAB PO SCH (07:35)
[2017-09-23] MEDS: GABAPENTIN 100 MG CAP PO SCH ×3 (07:35→20:40)
[2017-09-23] MEDS: ROFLUMILAST 500 MCG TAB PO SCH (07:35)
[2017-09-23] MEDS: CHOLECALCIFEROL 1000 INTER.UNIT TAB PO SCH ×2 (07:36→20:40)
[2017-09-23] MEDS: PANTOprazole SOD 40 MG TAB PO SCH ×2 (07:36→20:40)
[2017-09-23] MEDS: RANITIDINE HCL 150 MG TAB PO SCH ×2 (07:37→20:39)
[2017-09-23] MEDS: NYSTATIN SUSP 500,000 U/5 ML UDC PO SCH ×4 (07:38→20:39)
[2017-09-23] MEDS ORDERED: KETOROLAC TROMETHAMINE 15 MG/ML VIAL IV. STA (09:56)
[2017-09-23] MEDS: HYDROCODONE/HOMATROPINE SYRUP 5MG/1.5MG 5ML UDP PO PRN ×2 (12:11→20:47)
--- NOTE | 2017-09-23 17:20 | Progress Note ---
Progress Note Date of Service Sep 23, 2017. Progress Note SUBJECTIVE: Seen and examined at bedside. Patient continues to have cough. Also reports headache. Patient and hospitalist discussed that cough may continue to be persistent despite treatments for COPD. She feels uncomfortable with the coughing which may be causing the headache and reports needing more time to rest in the hospital OBJECTIVE: Physical Exam: General Appearance: uncomfortable when coughing Head: normocephalic, Atraumatic Eyes: normal inspection, EOMI, Neck: supple, Trachea midline Respiratory/Chest: less wheezing today Cardiovascular: S1, S2, No murmur Abdomen/GI:Soft, Non tender, Bowel sounds present Extremities/Musculoskelatal:normal inspection, no edema Neurologic/Psych:AAOX3, grossly no focal neurological deficits ASSESSMENT & PLAN: Acute COPD Exacerbation Chronic Respiratory failure with hypoxia Chronic Oxygen Dependency: 2 liters at baseline H/O excessive dynamic airway collapse (EDAC) h/o ELÍAS: Not using CPAP as recommended H/O Multiple Admissions in the past with COPD exacerbations Intractable cough CXR: no signs of consolidation on admission repeat chest X ray pulmonary service ordered D-dimer which was normal bronchodilators of albuterol/ipratropirum and budesonide, daliresp, Augmentin and Azithromycin. oral prednisone cough syrup with hydrocodone, Tessalon Perles prn continue trial of gabapentin to try to alleviate coughing symptoms HTN: Stable continue furosemide Chronic Anemia: Hgb at baseline Continue Iron Supplements GERD Continue Protonix and Zantac Depression/Anxiety Continue Zoloft and Ativan DVT Px Lovenox SQ
[2017-09-23] MEDS: SERTRALINE HCL 100 MG TAB PO SCH (20:39)
[2017-09-23] MEDS: ASCORBIC ACID 500 MG TAB PO SCH (20:40)
[2017-09-23] MEDS: ATORVASTATIN 10 MG TAB PO SCH (20:40)
[2017-09-23] MEDS: ENOXAPARIN 40 MG/0.4 ML SYR SQ SCH (20:40)
[2017-09-23] MEDS: KETOROLAC TROMETHAMINE 15 MG/ML VIAL IV PRN (20:41)
[2017-09-24 07:05] VITALS: PULSE 72; O2SAT 98
[2017-09-24] MEDS: ALBUT/IPRATROP 3MG/0.5MG NEB 3 ML VIAL INH SCH ×2 (07:05→11:15)
[2017-09-24] MEDS: BUDESONIDE 0.5 MG/2 ML VIAL (PULMICORT) INH SCH (07:05)
[2017-09-24 07:23] VITALS: BP 143/81; PULSE 76; TEMP 36.6
[2017-09-24] MEDS: LORAZEPAM 1 MG TAB PO PRN (07:40)
[2017-09-24] MEDS: GABAPENTIN 100 MG CAP PO SCH (07:41)
[2017-09-24] MEDS: KETOROLAC TROMETHAMINE 15 MG/ML VIAL IV PRN (07:41)
[2017-09-24] MEDS: RANITIDINE HCL 150 MG TAB PO SCH (07:41)
[2017-09-24] MEDS: PANTOprazole SOD 40 MG TAB PO SCH (07:41)
[2017-09-24] MEDS: ROFLUMILAST 500 MCG TAB PO SCH (07:41)
[2017-09-24] MEDS: CHOLECALCIFEROL 1000 INTER.UNIT TAB PO SCH (07:41)
[2017-09-24] MEDS: NYSTATIN SUSP 500,000 U/5 ML UDC PO SCH (07:42)
[2017-09-24] MEDS: FERROUS SULFATE 325 MG TAB PO SCH (07:42)
[2017-09-24] MEDS: FUROSEMIDE 20 MG TAB PO SCH (07:42)
[2017-09-24] MEDS: BENZONATATE 100MG CAP PO PRN (08:24)
[2017-09-24] MEDS ORDERED: AZITHROMYCIN 250 MG TAB PO SCH (09:00)
--- NOTE | 2017-09-24 10:58 | Progress Note ---
Internal Med Progress Note Date of Service: Sep 24, 2017. Provider Documentation: SUBJECTIVE: Patient's cough has improved today. No worsening shortness of breath reported. Patient has headache. But able to talk at length without obvious discomfort. Patient reports being ambulatory without problems OBJECTIVE: Physical Exam: General Appearance: no distress Head: normocephalic, Atraumatic Eyes: normal inspection, EOMI, Neck: supple, Trachea midline Respiratory/Chest: fair air entry, no crackles Cardiovascular: S1, S2, No murmur Abdomen/GI:Soft, Non tender, Bowel sounds present Extremities/Musculoskelatal:normal inspection, no edema Neurologic/Psych:AAOX3, grossly no focal neurological deficits ASSESSMENT & PLAN: Hospital Course and Plans ASSESSMENT & PLAN: Acute COPD Exacerbation Chronic Respiratory failure with hypoxia Chronic Oxygen Dependency: 2 liters at baseline H/O excessive dynamic airway collapse (EDAC) h/o ELÍAS: Not using CPAP as recommended H/O Multiple Admissions in the past with COPD exacerbations -Patient having intractable with shortness of breath and treated for coughing and COPD exacerbation with the cough making patient have more trouble with her breathing -Multiple modalities have been tried in hospital stay to alleviate symptoms including adjust nebulizers and inhaler treatments, steroids, cough suppressants such as Tessalon Perles, Guaifenesin syrup, hydrocodone cough syrup, trial of gabapentin, antibiotics with Augmentin and Azithromycin, continuing daliresp, continuing pantoprazole and ranitidine -Patient made improvements with her respiration and ambulation during hospital stay but coughing persists although getting somewhat better -Chest X rays did not show signs of infiltrates, no evidence of pulmonary embolism with normal D-Dimer, and BNP was unremarkable -patient will be discharged with medication regimen of continuing home inhalers and cough suppressants such as Tessalon Perles and prednisone taper of 30 mg daily 3for 3 days, 20 mg daily for 3 days, 10 mg daily for 3 days Headache -possibly from sinusitis vs cough induced headache -patient to follow up with Ear, Nose, Throat -prescription made for q6 hour as needed acetaminophen and ibuprofen HTN: continue furosemide Chronic Anemia: Hgb at baseline Continue Iron Supplements GERD Continue Protonix and Zantac Depression/Anxiety Continue Zoloft and Ativan DVT Px Lovenox SQ Discharge Instructions patient will be discharged with medication regimen of continuing home inhalers and cough suppressants such as Tessalon Perles and prednisone taper of 30 mg daily 3for 3 days, 20 mg daily for 3 days, 10 mg daily for 3 days prescription made for q6 hour as needed acetaminophen and ibuprofen for headache Follow up with your: primary care doctor 09/28/2017 12:45 PM North Clemons MD General Internal Medicine [facility] 10/17/2017 9:20 AM North Clemons MD General Internal Medicine [facility] Pulmonary clinic [address], [address] [place] [address] 09/26/17 10:30 AM with Leroy Paez 11/01/17 1:45 PM with Leroy Paez please call Ear Nose Throat doctor for appointment Vital Signs: Date Time Temp Pulse Resp B/P (MAP) Pulse Ox O2 Delivery O2 Flow Rate FiO2 09/24/17 11:16 92 18 97 Nasal Cannula 2.0 09/24/17 07:23 36.6 76 18 143/81 (101) Nasal Cannula 2.0 09/24/17 07:05 72 16 98 Nasal Cannula 2.0 09/23/17 23:15 Nasal Cannula 2.0 Humidified Oxygen 09/23/17 23:09 37.0 86 20 131/76 (94) 96 Nasal Cannula 2.0 09/23/17 19:06 86 16 96 Nasal Cannula 2.0 09/23/17 15:46 89 18 97 Nasal Cannula 2.0 09/23/17 15:40 Nasal Cannula 2.0 Humidified Oxygen 09/23/17 15:07 36.9 89 19 107/68 (81) 98 Nasal Cannula 2.5
[2017-09-24] MEDS ORDERED: VNTHFA/IN INH (11:06)
[2017-09-24] MEDS ORDERED: AZIT-57 PO (11:06)
[2017-09-24] MEDS ORDERED: ACET-1047 PO (11:06)
[2017-09-24] MEDS ORDERED: IBUP-1050 PO (11:06)
[2017-09-24] MEDS ORDERED: BENZ100C7 PO (11:12)
[2017-09-24] MEDS ORDERED: NYSS5 PO (11:12)
[2017-09-24] MEDS ORDERED: PRD20 PO (11:12)
[2017-09-24 11:16] VITALS: PULSE 92; O2SAT 97
--- NOTE | 2017-09-24 11:40 | Discharge Instructions ---
Discharge Instructions Date of Service Sep 24, 2017. Admission Reason for Admission: Copd Exacerbation Discharge Discharge Diagnosis / Problem: Acute COPD exacerbation, Intractable cough, headache Discharge Goals Goal(s): Decrease discomfort, Improve function, Improve disease control Activity Recommendations Activity Limitations: resume your previous activity . Instructions / Follow-Up Instructions / Follow-Up Hospital Course and Plans Acute COPD Exacerbation Chronic Respiratory failure with hypoxia Chronic Oxygen Dependency: 2 liters at baseline H/O excessive dynamic airway collapse (EDAC) h/o ELÍAS: Not using CPAP as recommended H/O Multiple Admissions in the past with COPD exacerbations -Patient having intractable with shortness of breath and treated for coughing and COPD exacerbation with the cough making patient have more trouble with her breathing -Multiple modalities have been tried in hospital stay to alleviate symptoms including adjust nebulizers and inhaler treatments, steroids, cough suppressants such as Tessalon Perles, Guaifenesin syrup, hydrocodone cough syrup, trial of gabapentin, antibiotics with Augmentin and Azithromycin, continuing daliresp, continuing pantoprazole and ranitidine -Patient made improvements with her respiration and ambulation during hospital stay but coughing persists although getting somewhat better -Chest X rays did not show signs of infiltrates, no evidence of pulmonary embolism with normal D-Dimer, and BNP was unremarkable -patient will be discharged with medication regimen of continuing home inhalers and cough suppressants such as Tessalon Perles and prednisone taper of 30 mg daily 3for 3 days, 20 mg daily for 3 days, 10 mg daily for 3 days Headache -possibly from sinusitis vs cough induced headache -patient to follow up with Ear, Nose, Throat -prescription made for q6 hour as needed acetaminophen and ibuprofen HTN: continue furosemide Chronic Anemia: Hgb at baseline Continue Iron Supplements GERD Continue Protonix and Zantac Depression/Anxiety Continue Zoloft and Ativan DVT Px Lovenox SQ Discharge Instructions patient will be discharged with medication regimen of continuing home inhalers and cough suppressants such as Tessalon Perles and prednisone taper of 30 mg daily 3for 3 days, 20 mg daily for 3 days, 10 mg daily for 3 days prescription made for q6 hour as needed acetaminophen and ibuprofen for headache Follow up with your: primary care doctor 09/28/2017 12:45 PM North Clemons MD General Internal Medicine [facility] 10/17/2017 9:20 AM North Clemons MD General Internal Medicine [facility] Pulmonary clinic [place] [id number] [facility], [address] [place] [id number] 09/26/17 10:30 AM with Leroy Paez 11/01/17 1:45 PM with Leroy Paez please call Ear Nose Throat doctor for appointment Current Hospital Diet Patient's current hospital diet: AHA Diet (Heart Healthy) Discharge Diet Recommended Diet: AHA Diet (Heart Healthy) Pending Studies Studies pending at discharge: no Laboratory Results 09/18/17 06:47 09/18/17 06:47 Test 09/15/17 13:53 09/18/17 06:47 09/19/17 05:59 09/19/17 13:12 Immature Granulocyte % (Auto) 0.1 % White Blood Count 6.82 K/uL (4.8-10.8) Red Blood Count 4.46 M/uL (4.2-5.4) 4.08 M/uL (4.2-5.4) Hemoglobin 11.3 g/dL (12.0-16.0) Hematocrit 35.9 % (37-47) Mean Corpuscular Volume 80.5 fL (80-100) 80.9 fL (80-100) Mean Corpuscular Hemoglobin 25.3 pg (25-34) 25.2 pg (25-34) Mean Corpuscular Hemoglobin Concent 31.5 g/dl (32-36) 31.2 g/dl (32-36) Platelet Count 319 K/uL (130-400) Mean Platelet Volume 8.8 fL (7.4-10.4) 8.9 fL (7.4-10.4) Neutrophils (%) (Auto) 57.3 % Lymphocytes (%) (Auto) 30.8 % Monocytes (%) (Auto) 6.0 % Eosinophils (%) (Auto) 5.7 % Basophils (%) (Auto) 0.1 % Neutrophils # (Auto) 3.90 K/uL (1.4-6.5) Lymphocytes # (Auto) 2.10 K/uL (1.2-3.4) Monocytes # (Auto) 0.41 K/uL (0.11-0.59) Eosinophils # (Auto) 0.39 K/uL (0-0.5) Basophils # (Auto) 0.01 K/uL (0-0.2) Immature Granulocyte # (Auto) 0.01 K/uL (0.00-0.02) RDW Standard Deviation 51.9 fL (36.4-46.3) RDW Coefficient of Variation 17.5 % (11.5-14.5) Anion Gap 4.0 mmol/L (3-11) Est Creatinine Clear Calc Drug Dose 69.6 ml/min Estimated GFR () 90.5 Estimated GFR (Non- 78.1 BUN/Creatinine Ratio 26.3 (10-20) Calcium Level 8.9 mg/dl (8.5-10.1) Magnesium Level 2.3 mg/dl (1.8-2.4) Pro-B-Type Natriuretic Peptide 751 pg/ml (0-900) D-Dimer < 190 ug/L FEU (0-500) Date/Time Source Procedure Growth Status 09/16/17 15:45 Sputum Expectorated Sputum Gram Stain - Final Complete 09/16/17 15:45 Sputum Expectorated Sputum Sputum Culture - Final LIGHT NORMAL KARI. Complete Medical Emergencies . Who to Call and When: Medical Emergencies: If at any time you feel your situation is an emergency, please call 911 immediately. . Non-Emergent Contact Non-Emergency issues call your: Primary Care Provider, Apparatus Repair Mechanic, Specialist (ENT) Call Non-Emergent contact if: you have any medication questions . . "Provider Documentation" section prepared by Elliott Leon. .
[2017-09-24 11:41] VITALS: BP 143/81; PULSE 92; TEMP 36.6; O2SAT 97
--- NOTE | 2017-09-24 11:41 | Discharge Summary ---
Discharge Summary Date of Service Sep 24, 2017. Discharge Summary Admission Date: Sep 15, 2017 at 16:04 Discharge Date: Sep 24, 2017 Discharge Disposition: Home Principal Diagnosis: Acute COPD exacerbation, Intractable cough, headache Secondary Diagnoses/Problems: GERD, HTN Medication Reconciliation New Medications: Ibuprofen (Advil) 200 Mg Tab 200 MG PO Q6 PRN for Pain or Fever for 5 Days, #20 TAB Acetaminophen (Mapap) 325 Mg Tab 325 MG PO Q6H PRN for Pain or Fever for 5 Days, #20 TAB Benzonatate (Benzonatate) 100 Mg Cap 200 MG PO Q8 PRN for Cough for 5 Days, #30 CAP Nystatin (Nystatin) 5 Ml Susp 5 ML PO QID for 7 Days, #1 BTL Prednisone (Prednisone) 20 Mg Tab 0 PO DAILY for 10 Days, #9 TAB take 30 mg daily for 3 days take 20 mg daily for 3 days take 10 mg daily for 3 days Continued Medications: Albuterol Hfa (Ventolin Hfa) 200 Puffs/79368 Mcg Aers 2 PUFFS INH Q6H PRN for Shortness of Breath for 30 Days, #1 INHALER (This prescription has been renewed) Albuterol Sulf (Proventil 0.083% 2.5MG/3ML) 2.5 Mg/3 Ml Nebu 2.5 MG INH QID, EA Alendronate Sodium (Fosamax) 70 Mg Tab 1 TAB PO WK for 28 Days, #4 TAB 3 Refills TAKES ON MON Ascorbic Acid (Vitamin C) 500 Mg Cap 1 CAP PO HS Atorvastatin (Lipitor) 10 Mg Tab 10 MG PO HS Cholecalciferol (Vitamin D) 2,000 Unit Tab 2 TAB PO QAM Cholecalciferol (Vitamin D) 1,000 Unit Tab 1 TAB PO HS Ferrous Sulfate (Ferrous Sulfate) 325 Mg Tab 325 MG PO BID Furosemide (Furosemide) 20 Mg Tab 20 MG PO QAM Glycopyrrolate (Inhalation) (Lonhala Magnair Refill Ki) 25 Mcg/Ml Fabi 2 PUFFS INH BID Home O2 Therapy (Oxygen) Gas 2 LITERS NA CONT, BTL Lorazepam (Lorazepam) 1 Mg Tab 1 MG PO TID PRN for Anxiety Ondansetron (Ondansetron HCl) 4 Mg Tab 4 MG PO Q6H PRN for Nausea or Vomiting Pantoprazole (Protonix) 40 Mg Tab 40 MG PO BID, #30 TAB Potassium Ext Rel (Klor-Con) 20 Meq Tabcr 20 MEQ PO QAM, TAB Ranitidine HCl (Ranitidine HCl) 150 Mg Tab 150 MG PO BID Roflumilast (Daliresp) 500 Mcg Tab 1 TAB PO QAM, TAB 5 Refills Sertraline (Zoloft) 100 Mg Tab 100 MG PO HS, TAB Admission Information HPI (per Admitting provider): This is a 67 yr female with PMH of COPD with chronic respiratory failure on home O2, excessive dynamic airway collapse (EDAC), prior Tobacco use, sleep apnea-Not using CPAP as recommended , hypertension, hyperlipidemia, GERD, chronic anemia, and other problems presents with history of worsening shortness of breath and cough with clear expectoration since 4 days duration. Reports having 2 episodes of vomiting secondary to cough. Denies any hemoptysis. Also reports diarrhea 2 days ago which currently resolved. She follows with Dr. Casper for COPD as outpatient. She wears 2 L of oxygen via nasal cannula at all times. She is not using CPAP as recommended. She quit smoking 4 years ago. Reports intermittent dizziness which has been chronic. Denies any history of chest pain, diaphoresis, fever, chills, headache, abdominal pain, blood in stools, dysuria, recent travel, sick contact, recent change in medications or antibiotic use. Physical Exam (per Admitting): General Appearance: WD/WN, + pertinent finding (Mild distress secondary to intractable cough) Head: normocephalic, atraumatic Eyes: normal inspection, PERRL, EOMI, sclerae normal ENT: normal ENT inspection, hearing grossly normal Neck: supple, trachea midline Respiratory/Chest: chest non-tender, no accessory muscle use, + decreased breath sounds, + wheezing (Bilaterally) Cardiovascular: regular rate, rhythm, no edema, no murmur Abdomen/GI: normal bowel sounds, non tender, soft Back: normal inspection Extremities/Musculoskelatal: normal inspection, no pedal edema Neurologic/Psych: software design engineer II-XII nml as tested, no motor/sensory deficits, alert , normal mood/affect, oriented x 3 Skin: normal color, warm/dry Hospital Course Hospital Course and Plans ASSESSMENT & PLAN: Acute COPD Exacerbation Chronic Respiratory failure with hypoxia Chronic Oxygen Dependency: 2 liters at baseline H/O excessive dynamic airway collapse (EDAC) h/o ELÍAS: Not using CPAP as recommended H/O Multiple Admissions in the past with COPD exacerbations -Patient having intractable with shortness of breath and treated for coughing and COPD exacerbation with the cough making patient have more trouble with her breathing -Multiple modalities have been tried in hospital stay to alleviate symptoms including adjust nebulizers and inhaler treatments, steroids, cough suppressants such as Tessalon Perles, Guaifenesin syrup, hydrocodone cough syrup, trial of gabapentin, antibiotics with Augmentin and Azithromycin, continuing daliresp, continuing pantoprazole and ranitidine -Patient made improvements with her respiration and ambulation during hospital stay but coughing persists although getting somewhat better -Chest X rays did not show signs of infiltrates, no evidence of pulmonary embolism with normal D-Dimer, and BNP was unremarkable -patient will be discharged with medication regimen of continuing home inhalers and cough suppressants such as Tessalon Perles and prednisone taper of 30 mg daily 3for 3 days, 20 mg daily for 3 days, 10 mg daily for 3 days Headache -possibly from sinusitis vs cough induced headache -patient to follow up with Ear, Nose, Throat -prescription made for q6 hour as needed acetaminophen and ibuprofen HTN: continue furosemide Chronic Anemia: Hgb at baseline Continue Iron Supplements GERD Continue Protonix and Zantac Depression/Anxiety Continue Zoloft and Ativan DVT Px Lovenox SQ Discharge Instructions patient will be discharged with medication regimen of continuing home inhalers and cough suppressants such as Tessalon Perles and prednisone taper of 30 mg daily 3for 3 days, 20 mg daily for 3 days, 10 mg daily for 3 days prescription made for q6 hour as needed acetaminophen and ibuprofen for headache Follow up with your: primary care doctor 09/28/2017 12:45 PM North Clemons MD General Internal Medicine [facility] 10/17/2017 9:20 AM North Clemons MD General Internal Medicine [facility] Pulmonary clinic [facility] - [address], [address] [place] [address] 09/26/17 10:30 AM with Leroy Paez 11/01/17 1:45 PM with Leroy Paez please call Ear Nose Throat doctor for appointment Total time spent on discharge = 40 minutes This includes examination of the patient, discharge planning, medication reconciliation, and communication with other providers. Discharge Instructions see above
== END 2017-09-24 12:00 | disposition home health service (06) | DRG 191 ==
LOC: C.EDB 13:10 → C.MS2W 16:04 → ENRESERV 16:45
PROVIDERS: ADMIT Internal Medicine; ATTEND Hospitalist
DX: J44.1 Chronic obstructive pulmonary disease with (acute) exacerbation (principal); J96.11 Chronic respiratory failure with hypoxia; J98.19 Other pulmonary collapse; Z99.81 Dependence on supplemental oxygen; G47.33 Obstructive sleep apnea (adult) (pediatric); Z91.19 Patient's noncompliance with other medical treatment and regimen; R05 Cough; R51 Headache; I10 Essential (primary) hypertension; D64.9 Anemia, unspecified; K21.9 Gastro-esophageal reflux disease without esophagitis; F32.9 Major depressive disorder, single episode, unspecified; F41.9 Anxiety disorder, unspecified; E78.5 Hyperlipidemia, unspecified; Z87.891 Personal history of nicotine dependence; Z79.83 Long term (current) use of bisphosphonates; Z79.899 Other long term (current) drug therapy; Z83.6 Family history of other diseases of the respiratory system

== ENCOUNTER 2017-10-10 13:52 | Inpatient (IN) | payer OTHER ==
[~2017-10-10] VITALS: Ht 172.7 cm; Wt 76.0 kg
[~2017-10-10 13:52] MED LIST changes: +ACET-1311 PO; +BENZ100C84 PO; +FRRS300 PO; +NYSS5 PO; +PRD20 PO; +TIOT1AER INH; +TRAM-10 PO
[2017-10-10] MEDS ORDERED: PLMINS NEB (15:04)
[2017-10-10] MEDS ORDERED: IPRA-64 INH (15:04)
[2017-10-10] MEDS ORDERED: GENT0.3S6 (15:08)
[2017-10-10] MEDS ORDERED: MONT1TAB3 PO (15:14)
[2017-10-10] MEDS ORDERED: OPTIRAY 320 IV PRN (15:15)
[2017-10-10] MEDS ORDERED: LEVALBUTEROL 0.63MG/3 ML NEB INH PRN (15:30)
[2017-10-10 15:33] VITALS: Ht 172.7 cm; Wt 76.0 kg
[2017-10-10 15:37] VITALS: BP 116/79; PULSE 92; TEMP 37.1; O2SAT 98
[2017-10-10 15:46] LABS: BASO % 0.1 %; BASO ABS # 0.02 K/uL (0-0.2); HEMATOCRIT 39.2 % (37-47); HEMOGLOBIN 12.3 g/dL (12.0-16.0); IG# 0.11 K/uL (0.00-0.02); LYMPH % 4.8 %; LYMPH ABS # 0.74 K/uL (1.2-3.4); MEAN CELL VOLUME 83.2 fL (80-100); MEAN CORPUSCULAR HEMOGLOBIN 26.1 pg (25-34); MEAN CORPUSCULAR HGB CONC 31.4 g/dl (32-36); MEAN PLATELET VOLUME 8.6 fL (7.4-10.4); MONO % 0.8 %; MONO ABS # 0.12 K/uL (0.11-0.59); NEUT % 93.6 %; PLATELET COUNT 364 K/uL (130-400); RED CELL DISTRIBUTION WIDTH CV 18.5 % (11.5-14.5); WHITE BLOOD COUNT 15.29 K/uL (4.8-10.8)
[2017-10-10] MEDS: LEVALBUTEROL 0.63MG/3 ML NEB INH SCH ×3 (15:51→23:10)
[2017-10-10 15:52] VITALS: PULSE 79; O2SAT 95
[2017-10-10 16:15] LABS: CALCIUM 9.1 mg/dl (8.5-10.1); CREATININE 1.01 mg/dl (0.60-1.20); POTASSIUM 3.7 mmol/L (3.5-5.1)
[2017-10-10] MEDS: METHYLPREDNISOLONE IV 40 MG in SYRINGE 0 ML IV SCH (16:40)
[2017-10-10] MEDS: ACETAMINOPHEN 325 MG TAB PO PRN (16:44)
--- NOTE | 2017-10-10 19:00 | History and Physical ---
History & Physical Date & Time of Service: Oct 10, 2017 at 15:20 Chief Complaint: Copd Exacerbation Primary Care Physician: North Clemons MD History of Present Illness This is a 67-year-old white female who has a significant past medical history of O2 dependent COPD, chronic hypoxic respiratory failure, HTN, HLD, osteoporosis, PUD, GERD H/O tobacco and alcohol abuse, chronic neck pain who presents to [facility] as direct admission from pulmonary clinic. Patient was recently admitted to [facility] 09/15 through 09/24/17 secondary to COPD exacerbation in which she was treated with IV steroids, nebs, antibiotic therapy. She was discharged on prednisone taper, oral antibiotic. She followed up closely in outpatient pulmonary clinic seen by ADRIAN Mac. Shortly after hospitalization was noted to have return of cough therefore placed on increased prednisone taper, azithromycin 250 mg 3 times per week, Jairo Bolivar. Unfortunately patient has been dealing with intractable chronic cough for over 2-3 years with frequent hospitalizations and COPD exacerbations. Per pulmonology a sinus source is a possibility, she is to undergo sinus surgery next month if COPD exacerbation resolved. When seen in outpatient pulmonary clinic today was noted to be slightly hypoxic, increased intractable cough with tachycardia and was recommended to be admitted for IV methylprednisolone treatment, pulmonary toilet as well as CT scan of chest to rule out PE. Patient with pulmonary closely which she had multiple bronchoscopies in the past which was mostly unrevealing in regards to her chronic intractable cough. She complains dry cough is constant, worse in a.m. and p.m. Nothing makes cough better, nothing makes cough worse. Has tried numerous [id number] cough suppressants, Tessalon Perles, Cheratussin without significant relief. Further complains of ACOSTA, sweats, occasional vertigo sensation, chest tightness with coughing. Denies fever, chills, pre syncope, sneezing, rhinorrhea, n/v/d, abdominal pain hemoptysis, sob at rest. Appetite is normal. She is being admitted for IV methylprednisolone and further pulmonary treatment of COPD exac. Past Medical/Surgical History Medical Problems: (1) Alcohol dependence in remission Status: Chronic (2) Benign neoplasm of colon Permanent Comment: 09/25/11 - 2 mm transverse colon tubular adenoma Status: Chronic (3) Chronic respiratory failure with hypoxia Status: Chronic (4) COPD, moderate Status: Chronic (5) Cystic Kidney Disease, Unspecified Status: Chronic (6) Excessive dynamic airway collapse Status: Chronic (7) GERD (gastroesophageal reflux disease) Status: Chronic (8) History of aspiration pneumonia Status: Chronic (9) Hyperlipidemia Status: Chronic (10) Hypertension Nos Status: Chronic (11) IBS (irritable bowel syndrome) Status: Chronic (12) Obstructive sleep apnea Status: Chronic (13) PUD (peptic ulcer disease) Status: Chronic (14) Thoracic aortic ectasia Status: Chronic (15) 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 Abdi in July 2016- diffuse subsegmental airway collapse on both bronchial trees. Bronchoscopy by Dr. Davila in 05/2017 WNL posterior pharynx diffuse erythema and edema noted Status: Chronic (7) S/p exploration of abdomen Permanent Comment: stent for ruptured right ureter Status: Chronic (8) S/p left sided discectomy, L3-4 Status: Chronic (9) S/P lumbar spinal fusion Permanent Comment: 06/2004 Status: Chronic (10) S/p lumbar spine revision Permanent Comment: 08/27/2014 removal old hardware, insert new - Dr. Mariee at L4/5 L5/s1 Status: Chronic (11) S/P tonsillectomy Status: Chronic Family History Blood clots MOTHER Cardiac disorder BROTHER (congenital heart disease) FH: CHF (congestive heart failure) MOTHER FH: heart disease MOTHER GRANDMOTHER FH: lung disease Hypertension Social History Smoking Status: Unknown if Ever Smoked Drug Use: none Marital Status: single Occupational Status: retired Immunizations History of Influenza Vaccine: Yes Influenza Vaccine Date: Dec 16, 2015 History of Tetanus Vaccine?: Yes Tetanus Immunization Date: Sep 08, 2009 History of Pneumococcal: Yes Pneumococcal Date: Mar 17, 2014 Allergies Coded Allergies: No Known Allergies (Verified , 10/01/17) PER PATIENT Home Medications Scheduled Alendronate Sodium (Fosamax), 1 TAB PO WK Ascorbic Acid (Vitamin C), 1 CAP PO HS Atorvastatin (Lipitor), 10 MG PO HS Budesonide (Budesonide), 1 VIAL NEB BID Cholecalciferol (Vitamin D), 2 TAB PO QAM Cholecalciferol (Vitamin D), 1 TAB PO HS Ferrous Sulfate (Ferrous Sulfate), 325 MG PO BID Furosemide (Furosemide), 20 MG PO QAM Gentamicin Sulfate (Ophth) (Gentamicin 0.3% Oph), 2 SPRAYS NA BID Glycopyrrolate (Inhalation) (Lonhala Magnair Refill Ki), 2 PUFFS INH BID Home O2 Therapy (Oxygen), 2 LITERS NA CONT Ipratropium-Albuterol (Duoneb), 1 TREATMENT INH Q4H Montelukast Sodium (Singulair), 10 MG PO DAILY Nystatin (Nystatin), 5 ML PO QID Pantoprazole (Protonix), 40 MG PO BID Potassium Ext Rel (Klor-Con), 20 MEQ PO QAM Ranitidine HCl (Ranitidine HCl), 150 MG PO BID Roflumilast (Daliresp), 1 TAB PO QAM Sertraline (Zoloft), 100 MG PO HS Tiotropium [place]-Olodaterol (Stiolto Respimat 2.5-2.5 Mcg/Act), 2 PUFF INH QAM Scheduled PRN Acetaminophen (Tylenol), 650 MG PO QD PRN for Pain Albuterol Hfa (Ventolin Hfa), 2 PUFFS INH Q6H PRN for Shortness of Breath Lorazepam (Lorazepam), 1 MG PO TID PRN for Anxiety Ondansetron (Ondansetron HCl), 4 MG PO Q6H PRN for Nausea or Vomiting Tramadol (Ultram), 50 MG PO Q8H PRN for Pain Review of Systems As noted per HPI, 10 systems reviewed and negative unless noted above. Physical Exam General Appearance: WD/WN, no apparent distress (sitting at bedside on O2 via NC, speaking easily) Head: normocephalic, atraumatic Eyes: normal inspection, sclerae normal ENT: normal ENT inspection, hearing grossly normal, + pertinent finding ( Mucous membranes moist) Neck: supple, no adenopathy, thyroid normal, no JVD Respiratory/Chest: chest non-tender, lungs clear, no respiratory distress, no accessory muscle use, + decreased breath sounds, + wheezing (mild exp wheezing at bases), + pertinent finding (on O2 via NC 2 L ) Cardiovascular: regular rate, rhythm, no edema, no gallop, no JVD, no murmur, + tachycardia Abdomen/GI: normal bowel sounds, non tender, soft, no organomegaly Back: normal inspection, no muscle spasm, normal range of motion Extremities/Musculoskelatal: normal inspection, no calf tenderness, no pedal edema Neurologic/Psych: alert, oriented x 3, + depressed affect Skin: normal color, warm/dry Diagnostics Laboratory Results Results Past 24 Hours Test 10/10/17 14:44 Range/Units Impression Assessment and Plan Moderate COPD EXAC with chronic hypoxic respiratory failure, O2 dependent WBC is elevated, most likely secondary to steroid use. She is afebrile, procalcitonin negative. Low suspicion for bacterial etiology -IV methylprednisolone 40mg TID (pulmonary recommending discharging on Prednisone 60mg po with extended duration taper.) -Start Spiriva while inpatient, hold home stiolto -xopenex 0.63 q4 and q2 prn -budenoside 0.5mg bid -continue singulair -cbc, bmp, pro calcitonin, tsh -CT for PE per pulm -last bronchoscopy 05/2017 Leucocytosis -monitor wbc. -recent IV and po steroid use, now back on IV steroids -does not appear to be infectious MILD HYPERGLYCEMIA blood sugar on admission 122, not fasting -recent steroid use. -check A1C in a.m. HTN -continue lasix HLD -continue atorvastatin GERD/Xx of PUD -continue ranitidine, zantac OZ/DEPRESSION -mood stable -continue zoloft, prn lorazpem -patient notes she takes lorazepam routinely bid, and occasionally TID if need VTE PROPHYLAXIS -lovenox DISPOSITION -admit to inpatient med/surg -discharge to home when stable The patient was seen and examined in medical floor She has bad COPD with recurrent admission to the hospital for exacerbation She has been feeling well for the last 2 weeks Ongoing symptoms of cough, phlegm and shortness of breath Was seen in the clinic and was sent in for continued care On examination Minimal distress at rest HEENT- unremarkable Chest decreased breath sounds with occasional wheezing all over No crackles Heart-S1-S2, no murmur appreciated Abdomen-benign, nontender, no organomegaly, bowel sounds present Extremities trace edema bilaterally Admission labs and imaging studies reviewed Has COPD exacerbation and may require from bronchoscopic suction of excess mucus Pulmonary consulted Agree with assessment and plan as mentioned above Dr. Radha Erazo Resuscitation Status Full Code Discussed in detail with patient and sister. Is unsure at this time, "with my current lung status I don't know what I want." She wishes we do everything for now while she further discusses with family regarding resuscitation status. VTE Prophylaxis Will order VTE Prophylaxis: Yes (lovenox)
[2017-10-10 19:11] VITALS: PULSE 95; O2SAT 97
[2017-10-10] MEDS: BUDESONIDE 0.5 MG/2 ML VIAL (PULMICORT) INH SCH (19:11)
--- NOTE | 2017-10-10 19:14 | DIAGNOSTIC IMAGING REPORT ---
CT ANGIOGRAPHY OF THE CHEST, PULMONARY EMBOLUS PROTOCOL CLINICAL HISTORY: Hypoxia. Intractable cough. COMPARISON STUDY: Chest CT May 17, 2017 and chest radiograph September 20, 2017. TECHNIQUE: Following IV administration of 114 mL of Optiray-320, helical axial images of the chest were obtained utilizing the pulmonary embolus protocol. Maximal intensity projections and sagittal and coronal reformats were viewed on an independent 3D workstation. IV contrast was administered without complication. A dose lowering technique was utilized adhering to the principles of ALARA. CT DOSE: 270.38 mGy.cm FINDINGS: No pulmonary emboli are identified. There is no evidence for thoracic aortic dissection. No enlarged axillary, mediastinal or hilar lymph nodes are present. There is no pneumomediastinum. Central airways are patent. Mild bronchial wall thickening is noted. There is no consolidation to suggest pneumonia. An 8 mm right middle lobe nodule shown on image 130 of [address] of January 22, 2016. This is likely benign. Bony thorax and upper abdomen are unremarkable. Gallbladder is surgically absent. IMPRESSION: 1. No pulmonary emboli identified. 2. No acute intrathoracic findings. 3. 8 mm right middle lobe nodule which is unchanged since CT of January 22, 2016. This is likely benign. A follow-up chest CT in 6 months to ensure stability is recommended. Electronically signed by: Roni Ragland M.D. 10/10/2017 7:13 PM Dictated Date/Time: 10/10/2017 6:58 PM
[2017-10-10] MEDS ORDERED: ASCORBIC ACID 500 MG TAB PO SCH (21:00)
[2017-10-10] MEDS: RANITIDINE HCL 150 MG TAB PO SCH (21:37)
[2017-10-10] MEDS: FERROUS SULFATE 325 MG TAB PO SCH (21:37)
[2017-10-10] MEDS: PANTOprazole SOD 40 MG TAB PO SCH (21:37)
[2017-10-10] MEDS: ENOXAPARIN 40 MG/0.4 ML SYR SQ SCH (21:38)
[2017-10-10] MEDS: ATORVASTATIN 10 MG TAB PO SCH (21:38)
[2017-10-10] MEDS: CHOLECALCIFEROL 1000 INTER.UNIT TAB PO SCH (21:38)
[2017-10-10] MEDS: SERTRALINE HCL 100 MG TAB PO SCH (21:38)
[2017-10-10] MEDS: ASCORBIC ACID 500 MG TAB PO SCH (21:39)
[2017-10-10] MEDS: HYDROCODONE/HOMATROPINE SYRUP 5MG/1.5MG 5ML UDP PO PRN (21:41)
[2017-10-10] MEDS: TRAMADOL HCL 50 MG TAB PO PRN (21:41)
[2017-10-10] MEDS: LORAZEPAM 1 MG TAB PO PRN (21:41)
[2017-10-10] MEDS: BENZONATATE 100MG CAP PO SCH (22:09)
[2017-10-10] MEDS: NYSTATIN SUSP 500,000 U/5 ML UDC PO SCH (22:09)
[2017-10-10 22:42] VITALS: BP 125/76; PULSE 93; TEMP 36.7; O2SAT 95
[2017-10-10 23:10] VITALS: PULSE 92; O2SAT 98
[2017-10-11] VITALS (7 sets, daily range): BP systolic 132–134; BP diastolic 77–85; PULSE 78–99; TEMP 36.8; O2SAT 94–99
[2017-10-11] MEDS: METHYLPREDNISOLONE IV 40 MG in SYRINGE 0 ML IV SCH ×3 (00:12→16:12)
[2017-10-11] MEDS: LEVALBUTEROL 0.63MG/3 ML NEB INH SCH ×6 (03:06→23:02)
[2017-10-11] MEDS ORDERED: GUAIFENESIN SUGAR FREE 100 MG/5 ML UDC PO PRN (03:45)
[2017-10-11] MEDS: GUAIFENESIN/DEXTROM SYRUP 100MG/10MG 5ML UDC PO PRN ×3 (04:17→14:07)
[2017-10-11 06:30] LABS: HEMOGLOBIN 11.3 g/dL (12.0-16.0); MEAN CELL VOLUME 82.9 fL (80-100); MEAN CORPUSCULAR HGB CONC 31.4 g/dl (32-36); MEAN PLATELET VOLUME 8.6 fL (7.4-10.4); PLATELET COUNT 362 K/uL (130-400); RED CELL DISTRIBUTION WIDTH CV 18.4 % (11.5-14.5); WHITE BLOOD COUNT 14.46 K/uL (4.8-10.8)
[2017-10-11 07:10] LABS: CALCIUM 8.8 mg/dl (8.5-10.1); CREATININE 0.73 mg/dl (0.60-1.20); POTASSIUM 4.3 mmol/L (3.5-5.1)
[2017-10-11] MEDS: BUDESONIDE 0.5 MG/2 ML VIAL (PULMICORT) INH SCH ×2 (07:36→20:03)
[2017-10-11] MEDS ORDERED: CHOLECALCIFEROL 1000 INTER.UNIT TAB PO SCH (08:00)
[2017-10-11] MEDS ORDERED: ASCORBIC ACID 500 MG TAB PO SCH (08:00)
[2017-10-11] MEDS: RANITIDINE HCL 150 MG TAB PO SCH ×2 (08:27→20:17)
[2017-10-11] MEDS: BENZONATATE 100MG CAP PO SCH ×3 (08:28→20:16)
[2017-10-11] MEDS: FERROUS SULFATE 325 MG TAB PO SCH ×2 (08:29→20:16)
[2017-10-11] MEDS: PANTOprazole SOD 40 MG TAB PO SCH ×2 (08:29→20:16)
[2017-10-11] MEDS: CHOLECALCIFEROL 1000 INTER.UNIT TAB PO SCH ×2 (08:29→20:17)
[2017-10-11] MEDS: MONTELUKAST SOD 10 MG TAB PO SCH (08:30)
[2017-10-11] MEDS: NYSTATIN SUSP 500,000 U/5 ML UDC PO SCH ×4 (08:30→20:16)
[2017-10-11] MEDS: FUROSEMIDE 20 MG TAB PO SCH (08:30)
[2017-10-11] MEDS: POTASSIUM CHLORIDE 20 MEQ TABCR PO SCH (08:30)
[2017-10-11] MEDS: TIOTROPIUM BROMIDE 5 PUFF/90 MCG INH INH SCH (08:32)
[2017-10-11] MEDS: ASCORBIC ACID 500 MG TAB PO SCH ×2 (08:33→20:17)
[2017-10-11] MEDS: LORAZEPAM 1 MG TAB PO PRN ×2 (08:36→20:23)
[2017-10-11] MEDS: ACETAMINOPHEN 325 MG TAB PO PRN (08:38)
[2017-10-11] MEDS: TRAMADOL HCL 50 MG TAB PO PRN ×2 (14:10→22:50)
[2017-10-11] MEDS: ATORVASTATIN 10 MG TAB PO SCH (20:17)
[2017-10-11] MEDS: SERTRALINE HCL 100 MG TAB PO SCH (20:18)
[2017-10-11] MEDS: ENOXAPARIN 40 MG/0.4 ML SYR SQ SCH (20:18)
[2017-10-11] MEDS ORDERED: DOCUSATE SODIUM 100 MG CAP PO ONE (21:34)
[2017-10-11] MEDS: HYDROCODONE/HOMATROPINE SYRUP 5MG/1.5MG 5ML UDP PO PRN (22:50)
--- NOTE | 2017-10-11 23:58 | Progress Note ---
Medicine Progress Note Date & Time of Visit: Oct 11, 2017 at 10:30 . Subjective CC: Follow-up visit for COPD and other problems. HPI: No fever. Persistent cough, chest tightness, and dyspnea. Cough productive of clear sputum. ROS: General- no fever, no chills Resp- as noted above in HPI Cardiac- no angina, no edema GI- no nausea, no vomiting, no diarrhea, no constipation - no dysuria . Objective Last 8 Hrs Date Time Temp Pulse Resp B/P (MAP) Pulse Ox O2 Delivery O2 Flow Rate FiO2 10/11/17 23:02 36.8 83 20 132/77 (95) 94 Nasal Cannula 2.0 10/11/17 23:02 86 18 98 Nasal Cannula 1.0 10/11/17 20:05 89 16 98 Nasal Cannula 2.0 10/11/17 19:40 Nasal Cannula 2.0 10/11/17 16:00 Nasal Cannula 2.0 Physical Exam: General- lying in bed, no distress Lungs- diffuse moderate wheezing; no acute respiratory distress Cardiovascular- RRR; no gallop; no JVD; no pretibial edema Abdomen- + bowel sounds, soft, nontender Extremities- no cyanosis; no calf tenderness Neuro- alert, oriented Skin- warm & dry . Laboratory Results: Last 24 Hours Test 10/11/17 05:55 White Blood Count 14.46 K/uL Red Blood Count 4.34 M/uL Hemoglobin 11.3 g/dL Hematocrit 36.0 % Mean Corpuscular Volume 82.9 fL Mean Corpuscular Hemoglobin 26.0 pg Mean Corpuscular Hemoglobin Concent 31.4 g/dl RDW Standard Deviation 56.0 fL RDW Coefficient of Variation 18.4 % Platelet Count 362 K/uL Mean Platelet Volume 8.6 fL Sodium Level 140 mmol/L Potassium Level 4.3 mmol/L Chloride Level 104 mmol/L Carbon Dioxide Level 31 mmol/L Anion Gap 6.0 mmol/L Blood Urea Nitrogen 15 mg/dl Creatinine 0.73 mg/dl Est Creatinine Clear Calc Drug Dose 74.4 ml/min Estimated GFR () 98.1 Estimated GFR (Non- 84.6 BUN/Creatinine Ratio 20.2 Random Glucose 108 mg/dl Calcium Level 8.8 mg/dl Assessment & Plan EXACERBATION COPD No infiltrates on chest CT. IV steroids, bronchodilators. Consult Pulmonary Medicine. CHRONIC HYPOXIC RESPIRATORY FAILURE Secondary to COPD. On home O2 @ 2 LPM. Continue supplemental oxygen. PULMONARY NODULE 8 mm nodule noted RML. Stable since 2016. F/U CT in 6 months recommended. HYPERTENSION Continue furosemide. GERD Continue ranitidine and pantoprazole. DEPRESSION Continue sertraline. VTE PROPHYLAXIS SQ enoxaparin. Ambulate. DISPOSITION Expected discharge to home. Internal Medicine follow-up with Dr. Clemons. . Current Inpatient Medications: Current Inpatient Medications Medications (Trade) Dose Ordered Sig/Edis Route Start Time Stop Time Status Last Admin Dose Admin Enoxaparin Sodium (Lovenox Inj) 40 mg Q24H SQ 10/10/17 21:00 11/09/17 20:59 10/11/17 20:18 40 MG Acetaminophen (Tylenol Tab) 650 mg Q4H PRN PO 10/10/17 14:45 11/09/17 14:44 10/11/17 08:38 650 MG Ioversol (Optiray 320) 100 ml UD PRN IV 10/10/17 15:15 10/14/17 15:14 Atorvastatin Calcium (Lipitor Tab) 10 mg HS PO 10/10/17 21:00 11/09/17 20:59 10/11/17 20:17 10 MG Budesonide (Pulmicort Respules 0.5MG/ 2ML Neb Soln) 0.5 mg BIDR INH 10/10/17 20:00 11/09/17 19:59 10/11/17 20:03 0.5 MG Cholecalciferol (Vitamin D Tab) 1,000 inter.unit HS PO 10/10/17 21:00 11/09/17 20:59 10/11/17 20:17 1,000 INTER.UNIT Ferrous Sulfate (Feosol Tab) 325 mg BID PO 10/10/17 20:00 11/09/17 19:59 10/11/17 20:16 325 MG Furosemide (Lasix Tab) 20 mg QAM PO 10/11/17 08:00 11/10/17 07:59 10/11/17 08:30 20 MG Lorazepam (Ativan Tab) 1 mg TID PRN PO 10/10/17 15:00 11/09/17 14:59 10/11/17 20:23 1 MG Pantoprazole Sodium (Protonix Tab) 40 mg BID PO 10/10/17 20:00 11/09/17 19:59 10/11/17 20:16 40 MG Potassium Chloride (Klor-Con Tab) 20 meq QAM PO 10/11/17 08:00 11/10/17 07:59 10/11/17 08:30 20 MEQ Ranitidine HCl (zANTac TAB) 150 mg BID PO 10/10/17 20:00 11/09/17 19:59 10/11/17 20:17 150 MG Sertraline HCl (Zoloft Tab) 100 mg HS PO 10/10/17 21:00 11/09/17 20:59 10/11/17 20:18 100 MG Montelukast Sodium (Singulair Tab) 10 mg DAILY PO 10/11/17 08:00 11/10/17 07:59 10/11/17 08:30 10 MG Cholecalciferol (Vitamin D Tab) 2,000 inter.unit QAM PO 10/11/17 08:00 11/10/17 07:59 10/11/17 08:29 2,000 INTER.UNIT Methylprednisolone Sodium Succinate 40 mg/Syringe 0.64 ml @ 1.5 mls/min Q8H IV 10/10/17 16:00 11/09/17 15:59 10/11/17 16:12 1.5 MLS/MIN Tiotropium [place] (Spiriva Handihaler Inhaler) 1 puff QAM INH 10/11/17 08:00 11/10/17 07:59 Levalbuterol (Xopenex 0.63 Mg/ 3 Ml Neb) 0.63 mg Q4 INH 10/10/17 16:00 11/09/17 15:59 10/11/17 23:02 0.63 MG Levalbuterol (Xopenex 0.63 Mg/ 3 Ml Neb) 0.63 mg Q2H PRN INH 10/10/17 15:30 11/09/17 15:29 10/11/17 07:37 0.63 MG Ascorbic Acid (Vitamin C Tab) 500 mg BID PO 10/10/17 21:30 11/10/17 07:59 10/11/17 20:17 500 MG Nystatin (Mycostatin Susp) 5 ml QID PO 10/10/17 21:30 10/20/17 21:29 10/11/17 20:16 5 ML Tramadol HCl (Ultram Tab) 50 mg Q8H PRN PO 10/10/17 21:30 11/09/17 21:29 10/11/17 22:50 50 MG Benzonatate (Tessalon Perles Cap) 100 mg TID PO 10/10/17 21:30 11/09/17 21:29 10/11/17 20:16 100 MG Hydrocodone Bit/ Homatropine Methylb (Hycodan Syrup) 5 ml HS PRN PO 10/10/17 21:30 10/24/17 21:29 10/11/17 22:50 5 ML Guaifenesin/ Dextromethorphan (Robitussin-Dm Syrup) 5 ml Q4H PRN PO 10/11/17 03:45 11/10/17 03:44 10/11/17 14:07 5 ML Docusate Sodium (coLACE CAP) 100 mg DAILY PO 10/12/17 08:00 11/11/17 07:59
[2017-10-12] VITALS (9 sets, daily range): BP systolic 130–146; BP diastolic 74–83; PULSE 72–101; TEMP 36.6–36.8; O2SAT 96–99
[2017-10-12] MEDS: METHYLPREDNISOLONE IV 40 MG in SYRINGE 0 ML IV SCH ×3 (00:55→15:58)
[2017-10-12] MEDS: LEVALBUTEROL 0.63MG/3 ML NEB INH SCH ×6 (03:05→23:09)
[2017-10-12] MEDS: GUAIFENESIN/DEXTROM SYRUP 100MG/10MG 5ML UDC PO PRN ×3 (03:37→13:52)
[2017-10-12 06:49] LABS: CALCIUM 8.6 mg/dl (8.5-10.1); CREATININE 0.76 mg/dl (0.60-1.20); POTASSIUM 3.9 mmol/L (3.5-5.1)
[2017-10-12] MEDS: BUDESONIDE 0.5 MG/2 ML VIAL (PULMICORT) INH SCH ×2 (07:48→19:04)
[2017-10-12] MEDS: ASCORBIC ACID 500 MG TAB PO SCH ×2 (08:00→20:17)
[2017-10-12] MEDS: TIOTROPIUM BROMIDE 5 PUFF/90 MCG INH INH SCH (08:00)
[2017-10-12] MEDS: LORAZEPAM 1 MG TAB PO PRN ×2 (08:06→20:20)
[2017-10-12] MEDS: NYSTATIN SUSP 500,000 U/5 ML UDC PO SCH ×4 (08:06→20:13)
[2017-10-12] MEDS: TRAMADOL HCL 50 MG TAB PO PRN ×2 (08:06→20:21)
[2017-10-12] MEDS: FERROUS SULFATE 325 MG TAB PO SCH ×2 (08:07→20:13)
[2017-10-12] MEDS: BENZONATATE 100MG CAP PO SCH ×3 (08:07→20:14)
[2017-10-12] MEDS: RANITIDINE HCL 150 MG TAB PO SCH ×2 (08:07→20:15)
[2017-10-12] MEDS: PANTOprazole SOD 40 MG TAB PO SCH ×2 (08:07→20:12)
[2017-10-12] MEDS: FUROSEMIDE 20 MG TAB PO SCH (08:07)
[2017-10-12] MEDS: CHOLECALCIFEROL 1000 INTER.UNIT TAB PO SCH ×2 (08:07→20:16)
[2017-10-12] MEDS: POTASSIUM CHLORIDE 20 MEQ TABCR PO SCH (08:08)
[2017-10-12] MEDS: MONTELUKAST SOD 10 MG TAB PO SCH (08:08)
[2017-10-12] MEDS: DOCUSATE SODIUM 100 MG CAP PO SCH (08:12)
[2017-10-12] MEDS ORDERED: POLYETHYLENE (MIRALAX) 17 GM PACK PO PRN (10:30)
[2017-10-12] MEDS ORDERED: POLYETHYLENE (MIRALAX) 17 GM PACK PO ONE (11:00)
--- NOTE | 2017-10-12 11:59 | PULMONARY CONSULTATION ---
DATE OF CONSULTATION: 10/12/2017 TIME: 09:35 a.m. REPORT OF CONSULTATION: The patient was seen in room 412, bed 1. She is a 67-year-old female with a longstanding history of COPD. Her symptoms have been mainly those of cough and to a lesser-degree shortness of breath. She has had numerous exacerbations in the past 2 years. She has had approximately 5 bronchoscopies in the past with the most recent being in May of this year. She states that she never seemed to notice benefit from the scope itself. At the time of her last scope, Dr. Abdi had noted some areas of excessive dynamic airway compression. She was recently hospitalized from 09/15/2017 until 09/24/2017. Her cough was very severe at that time. She showed no improvement for 5 or 6 days, but then ultimately did improve. Soon after discharge, the cough worsened. She followed up with Bubba Paez PA-C in the pulmonary outpatient department. He reinitiated the steroids. He saw her in followup again and she was no better and he recommended admission once again. She did have a CT angio of the chest on the date of this admission and it showed no evidence of pulmonary embolic disease. She did have an 8 mm right middle lobe nodule which has been present and unchanged dating back to 01/22/2016. There were no significant acute pulmonary findings on the CAT scan. The patient states the cough occurs both daytime and nighttime. She cannot think of any precipitating factors or factors that improve the cough. She does not expectorate much phlegm. The mucus she has is clear. What she expectorated last time when I have seen her really looked like saliva. She does take medicines for reflux. She states she has had some mild indigestion recently despite taking medicines. She does not notice that the cough is worse while supine. She has been found to have sinus disease. She was scheduled to have surgery by Dr. Berger, but it had to be canceled because of her recent exacerbation. Perhaps the sinus disease is the underlying precipitating cause. The patient does have a history of smoking. She quit smoking in 2013 and she had a [id number] history of smoking. She carries a history of sleep apnea. She has not tolerated CPAP, however. She has been found to have some degree of esophageal dysmotility. PAST SURGICAL HISTORY: 1. Tonsillectomy. 2. Hysterectomy. 3. Appendectomy. 4. Exploratory abdominal laparoscopy. 5. Lumbar spine surgery. 6. Cataract surgery. 7. Cervical spine surgery. PAST MEDICAL HISTORY: 1. Chronic kidney disease. 2. Hyperlipidemia. 3. Hypertension. 4. Irritable bowel. 5. Prior ETOH abuse. FAMILY HISTORY: Mother had a history of blood clots, heart disease, and congestive failure. Brother had congenital heart disease. ALLERGIES: No known allergies. REVIEW OF SYSTEMS: Negative except as noted above. MEDICATIONS AT HOME: 1. Ventolin HFA p.r.n. 2. Alendronate 70 mg weekly. 3. Ascorbic acid 500 b.i.d. 4. Atorvastatin 10 mg at bedtime. 5. Budesonide 0.5 mg b.i.d. by nebulizer. 6. Vitamin D 2 tabs in the morning with each being 2000 units and 1000 units in the evening. 7. Ferrous sulfate 325 mg b.i.d. 8. Furosemide 20 mg daily. 9. [place] Magnair b.i.d. 10. O2 2 liters continuous. 11. DuoNeb q. 4 hours. 12. Lorazepam 1 mg t.i.d. 13. Montelukast 10 mg daily. 14. Nystatin p.r.n. 15. Ondansetron p.r.n. 16. Pantoprazole 40 mg b.i.d. 17. Potassium 20 mEq daily. 18. Ranitidine 150 mg b.i.d. 19. Daliresp 500 mcg daily. 20. Sertraline 100 mg at bedtime. 21. Stiolto 2 puffs in the morning - she is, however, listed as taking [place] also and ipratropium and I am going to be surprised if she is actually taking all of these similar medicines. 22. Tramadol 50 mg q. 8 p.r.n. PHYSICAL EXAMINATION: VITAL SIGNS: The patient is a 67-year-old female who was cooperative, alert and oriented. She was in no distress. She was coughing intermittently. It was quite frequent. Temperature is 36.6. HEENT: Pupils were somewhat miotic. Nares were clear. Mouth exam showed no erythema or exudate. NECK: Palpation of the neck reveals no lymph nodes. HEART: The chest was of normal expansion. Heart rate was 100. The rhythm is regular. Blood pressure 134/74. LUNGS: Lung becerra revealed mild to moderate rhonchi bilaterally. Respiratory rate was 18. Saturation was 99% on 2 liters. ABDOMEN: Soft. Bowel sounds were normal. There was no tenderness to palpation, masses, or organomegaly. She has large scars from prior surgeries. EXTREMITIES: Showed no cyanosis, clubbing or edema. LABORATORY DATA: White count is 14.46. Hemoglobin 11.3. Platelets 362,000. Electrolytes show sodium 138, potassium 3.9, chloride 102, bicarbonate 30. BUN 17 with creatinine 0.7. Procalcitonin was normal at 0.05. TSH was normal at 0.408. IMPRESSION: 1. Chronic obstructive pulmonary disease with exacerbation. 2. Intractable cough. 3. Chronic sinus disease - possibly contributing to #2. 4. Obstructive sleep apnea - untreated. COMMENTS AND RECOMMENDATIONS: The patient is a very difficult management case from the perspective of the cough. She does have sinus disease which may be the precipitating factor. She has not been well enough to get the surgery, however. I do not believe her symptoms are totally typical for chronic sinus disease as a precipitating factor. Will check immunoglobulins to see if they are normal. When she was in the hospital last time, she was given a very brief trial of gabapentin for the cough. It was really too short a time to determine if it was helping. We will give her a brief trial while she is here and once again look for any benefits. Currently, she is on Tiotropium, budesonide, methylprednisolone, and levalbuterol. I would continue with all of those. Thank you for asking me to assist in her care.
[2017-10-12] MEDS: GABAPENTIN 100 MG CAP PO SCH ×2 (13:43→20:14)
--- NOTE | 2017-10-12 18:52 | Progress Note ---
Medicine Progress Note Date & Time of Visit: Oct 12, 2017 at 10:20 . Subjective CC: Follow-up visit for COPD and other problems. HPI: Persistent cough, chest tightness, and dyspnea. Cough productive of clear sputum. ROS: General- no fever, no chills Resp- as noted above in HPI Cardiac- no angina, no edema GI- no nausea, no vomiting, no diarrhea, no constipation - no dysuria . Objective Last 8 Hrs Date Time Temp Pulse Resp B/P (MAP) Pulse Ox O2 Delivery O2 Flow Rate FiO2 10/12/17 17:27 Nasal Cannula 2.0 10/12/17 15:32 89 18 98 Nasal Cannula 2.0 10/12/17 15:09 36.8 94 20 146/83 (104) 96 2.0 10/12/17 11:30 91 18 99 Nasal Cannula 2.0 Physical Exam: General- lying in bed, no distress Lungs- scattered rhonchi, diffuse moderate wheezing; no acute respiratory distress Cardiovascular- RRR; no gallop; no JVD; no pretibial edema Abdomen- + bowel sounds, soft, nontender Extremities- no cyanosis; no calf tenderness Neuro- alert, oriented Skin- warm & dry . Laboratory Results: Last 24 Hours Test 10/12/17 05:41 10/12/17 10:14 Sodium Level 138 mmol/L Potassium Level 3.9 mmol/L Chloride Level 102 mmol/L Carbon Dioxide Level 30 mmol/L Anion Gap 6.0 mmol/L Blood Urea Nitrogen 17 mg/dl Creatinine 0.76 mg/dl Est Creatinine Clear Calc Drug Dose 71.4 ml/min Estimated GFR () 93.4 Estimated GFR (Non- 80.6 BUN/Creatinine Ratio 22.0 Random Glucose 118 mg/dl Calcium Level 8.6 mg/dl Immunoglobulin G 558.0 mg/dL Immunoglobulin A 134.0 mg/dL Immunoglobulin M 216.0 mg/dL Assessment & Plan EXACERBATION COPD No infiltrates on chest CT. IV steroids, bronchodilators. Pulmonary Medicine consulted. Weans steroids as tolerated. CHRONIC HYPOXIC RESPIRATORY FAILURE Secondary to COPD. On home O2 @ 2 LPM. Continue supplemental oxygen. PULMONARY NODULE 8 mm nodule noted RML. Stable since 2015. F/U CT in 6 months recommended. HYPERTENSION Continue furosemide. GERD Continue ranitidine and pantoprazole. DEPRESSION Continue sertraline. VTE PROPHYLAXIS SQ enoxaparin. Ambulate. DISPOSITION Expected discharge to home. Internal Medicine follow-up with Dr. Clemons. . Current Inpatient Medications: Current Inpatient Medications Medications (Trade) Dose Ordered Sig/Edis Route Start Time Stop Time Status Last Admin Dose Admin Enoxaparin Sodium (Lovenox Inj) 40 mg Q24H SQ 10/10/17 21:00 11/09/17 20:59 10/11/17 20:18 40 MG Acetaminophen (Tylenol Tab) 650 mg Q4H PRN PO 10/10/17 14:45 11/09/17 14:44 10/11/17 08:38 650 MG Ioversol (Optiray 320) 100 ml UD PRN IV 10/10/17 15:15 10/14/17 15:14 Atorvastatin Calcium (Lipitor Tab) 10 mg HS PO 10/10/17 21:00 11/09/17 20:59 10/11/17 20:17 10 MG Budesonide (Pulmicort Respules 0.5MG/ 2ML Neb Soln) 0.5 mg BIDR INH 10/10/17 20:00 11/09/17 19:59 10/12/17 07:48 0.5 MG Cholecalciferol (Vitamin D Tab) 1,000 inter.unit HS PO 10/10/17 21:00 11/09/17 20:59 10/11/17 20:17 1,000 INTER.UNIT Ferrous Sulfate (Feosol Tab) 325 mg BID PO 10/10/17 20:00 11/09/17 19:59 10/12/17 08:07 325 MG Furosemide (Lasix Tab) 20 mg QAM PO 10/11/17 08:00 11/10/17 07:59 10/12/17 08:07 20 MG Lorazepam (Ativan Tab) 1 mg TID PRN PO 10/10/17 15:00 11/09/17 14:59 10/12/17 08:06 1 MG Pantoprazole Sodium (Protonix Tab) 40 mg BID PO 10/10/17 20:00 11/09/17 19:59 10/12/17 08:07 40 MG Potassium Chloride (Klor-Con Tab) 20 meq QAM PO 10/11/17 08:00 11/10/17 07:59 10/12/17 08:08 20 MEQ Ranitidine HCl (zANTac TAB) 150 mg BID PO 10/10/17 20:00 11/09/17 19:59 10/12/17 08:07 150 MG Sertraline HCl (Zoloft Tab) 100 mg HS PO 10/10/17 21:00 11/09/17 20:59 10/11/17 20:18 100 MG Montelukast Sodium (Singulair Tab) 10 mg DAILY PO 10/11/17 08:00 11/10/17 07:59 10/12/17 08:08 10 MG Cholecalciferol (Vitamin D Tab) 2,000 inter.unit QAM PO 10/11/17 08:00 11/10/17 07:59 10/12/17 08:07 2,000 INTER.UNIT Methylprednisolone Sodium Succinate 40 mg/Syringe 0.64 ml @ 1.5 mls/min Q8H IV 10/10/17 16:00 11/09/17 15:59 10/12/17 15:58 1.5 MLS/MIN Levalbuterol (Xopenex 0.63 Mg/ 3 Ml Neb) 0.63 mg Q4 INH 10/10/17 16:00 11/09/17 15:59 10/12/17 15:32 0.63 MG Levalbuterol (Xopenex 0.63 Mg/ 3 Ml Neb) 0.63 mg Q2H PRN INH 10/10/17 15:30 11/09/17 15:29 10/11/17 07:37 0.63 MG Nystatin (Mycostatin Susp) 5 ml QID PO 10/10/17 21:30 10/20/17 21:29 10/12/17 17:05 5 ML Tramadol HCl (Ultram Tab) 50 mg Q8H PRN PO 10/10/17 21:30 11/09/17 21:29 10/12/17 08:06 50 MG Benzonatate (Tessalon Perles Cap) 100 mg TID PO 10/10/17 21:30 11/09/17 21:29 10/12/17 13:43 100 MG Hydrocodone Bit/ Homatropine Methylb (Hycodan Syrup) 5 ml HS PRN PO 10/10/17 21:30 10/24/17 21:29 10/11/17 22:50 5 ML Guaifenesin/ Dextromethorphan (Robitussin-Dm Syrup) 5 ml Q4H PRN PO 10/11/17 03:45 11/10/17 03:44 10/12/17 13:52 5 ML Docusate Sodium (coLACE CAP) 100 mg DAILY PO 10/12/17 08:00 11/11/17 07:59 10/12/17 08:12 100 MG Gabapentin (Neurontin Cap) 100 mg TID PO 10/12/17 14:00 11/11/17 13:59 10/12/17 13:43 100 MG Ascorbic Acid (Vitamin C Tab) 500 mg HS PO 10/12/17 21:00 11/10/17 07:59 Polyethylene (Miralax Powder Packet) 17 gm BID PRN PO 10/12/17 10:30 11/11/17 10:29 Tiotropium [place]/Olodaterol (Stiolto Respimat 2.5-2.5 Mcg/Act) 5 mcg DAILY INH 10/13/17 08:00 11/12/17 07:59
[2017-10-12] MEDS: SERTRALINE HCL 100 MG TAB PO SCH (20:15)
[2017-10-12] MEDS: ENOXAPARIN 40 MG/0.4 ML SYR SQ SCH (20:16)
[2017-10-12] MEDS: ATORVASTATIN 10 MG TAB PO SCH (20:18)
[2017-10-12] MEDS: HYDROCODONE/HOMATROPINE SYRUP 5MG/1.5MG 5ML UDP PO PRN (20:20)
[2017-10-13] VITALS (9 sets, daily range): BP systolic 137–146; BP diastolic 78–85; PULSE 72–95; TEMP 36.6–36.8; O2SAT 97–100
[2017-10-13] MEDS: METHYLPREDNISOLONE IV 40 MG in SYRINGE 0 ML IV SCH ×3 (00:07→20:43)
[2017-10-13] MEDS: LEVALBUTEROL 0.63MG/3 ML NEB INH SCH ×6 (03:43→23:13)
[2017-10-13] MEDS: BUDESONIDE 0.5 MG/2 ML VIAL (PULMICORT) INH SCH ×2 (07:15→19:03)
[2017-10-13 07:35] LABS: HEMATOCRIT 37.9 % (37-47); HEMOGLOBIN 11.7 g/dL (12.0-16.0); MEAN CELL VOLUME 85.4 fL (80-100); MEAN CORPUSCULAR HEMOGLOBIN 26.4 pg (25-34); MEAN CORPUSCULAR HGB CONC 30.9 g/dl (32-36); MEAN PLATELET VOLUME 8.8 fL (7.4-10.4); NUCLEATED RED BLOOD CELL ABS 0.02 K/uL (0-0); PLATELET COUNT 380 K/uL (130-400); RED CELL DISTRIBUTION WIDTH CV 19.3 % (11.5-14.5); RED CELL DISTRIBUTION WIDTH SD 60.6 fL (36.4-46.3); WHITE BLOOD COUNT 22.24 K/uL (4.8-10.8)
[2017-10-13 08:08] LABS: CREATININE 0.83 mg/dl (0.60-1.20)
[2017-10-13] MEDS: CHOLECALCIFEROL 1000 INTER.UNIT TAB PO SCH ×2 (08:43→20:41)
[2017-10-13] MEDS: FUROSEMIDE 20 MG TAB PO SCH (08:43)
[2017-10-13] MEDS: RANITIDINE HCL 150 MG TAB PO SCH ×2 (08:43→20:40)
[2017-10-13] MEDS: MONTELUKAST SOD 10 MG TAB PO SCH (08:43)
[2017-10-13] MEDS: POTASSIUM CHLORIDE 20 MEQ TABCR PO SCH (08:44)
[2017-10-13] MEDS: GABAPENTIN 100 MG CAP PO SCH ×3 (08:44→20:38)
[2017-10-13] MEDS: BENZONATATE 100MG CAP PO SCH ×3 (08:44→20:39)
[2017-10-13] MEDS: NYSTATIN SUSP 500,000 U/5 ML UDC PO SCH ×4 (08:45→20:38)
[2017-10-13] MEDS: GUAIFENESIN/DEXTROM SYRUP 100MG/10MG 5ML UDC PO PRN (08:45)
[2017-10-13] MEDS: FERROUS SULFATE 325 MG TAB PO SCH ×2 (08:45→20:39)
[2017-10-13] MEDS: TIOTROPIUM BROMIDE-OLODATEROL 2.5-2.5MCG/ACT INH SCH (08:45)
[2017-10-13] MEDS: PANTOprazole SOD 40 MG TAB PO SCH ×2 (08:45→20:39)
[2017-10-13] MEDS: DOCUSATE SODIUM 100 MG CAP PO SCH (08:45)
[2017-10-13] MEDS: LORAZEPAM 1 MG TAB PO PRN ×2 (08:49→20:47)
[2017-10-13] MEDS: TRAMADOL HCL 50 MG TAB PO PRN ×2 (08:50→20:48)
--- NOTE | 2017-10-13 08:50 | PULMONARY PROGRESS NOTE ---
DATE: 10/13/2017 PULMONARY PROGRESS NOTE TIME: 8:15 a.m. SUBJECTIVE: Patient states she feels the same. She is still wheezing and coughing. She does not think that either symptom has improved substantially. OBJECTIVE: GENERAL: The patient is comfortable at rest. She was in no distress. She did cough periodically during the exam. VITAL SIGNS: Temperature is 36.6. CARDIOVASCULAR: Heart rate is 89 per minute. Rhythm is regular. Blood pressure 146/85. CHEST: Auscultation of the lung becerra reveals moderate wheeze and rhonchi bilaterally. It does sound about the same as yesterday. Her respiratory rate is 20. Saturation was 98% on 2 liters. EXTREMITIES: Showed no cyanosis, clubbing or edema. LABORATORY DATA: White count is increased to 22.24. I suspect this is steroid related. Hemoglobin 11.7. Platelets are 380,000. Chemistry studies are pending. IMPRESSIONS: 1. Chronic obstructive pulmonary disease exacerbation. 2. Intractable cough. 3. Chronic sinus disease. 4. Obstructive sleep apnea - untreated. RECOMMENDATION: Suggest keeping everything the same except we will cut back the methylprednisolone to q. 12 hours.
--- NOTE | 2017-10-13 18:35 | Progress Note ---
Medicine Progress Note Date & Time of Visit: Oct 13, 2017 at 10:50 . Subjective CC: Follow-up visit for COPD and other problems. HPI: Persistent cough, wheezing, shortness of breath. Cough is congested and productive of clear sputum. ROS: General- no fever, no chills Resp- as noted above in HPI Cardiac- no angina, no edema GI- no nausea, no vomiting, had bowel movement after receiving MiraLAX - no dysuria . Objective Last 8 Hrs Date Time Temp Pulse Resp B/P (MAP) Pulse Ox O2 Delivery O2 Flow Rate FiO2 10/13/17 16:15 Nasal Cannula 2.0 10/13/17 15:38 92 16 98 Nasal Cannula 2.0 10/13/17 15:03 36.8 91 18 137/79 (98) 97 2.0 10/13/17 11:08 76 16 98 Nasal Cannula 2.0 Physical Exam: General- lying in bed, no distress Lungs- scattered rhonchi, diffuse moderate wheezing; no acute respiratory distress Cardiovascular- RRR; no gallop; no JVD; no pretibial edema Abdomen- + bowel sounds, soft, nontender Extremities- no cyanosis; no calf tenderness Neuro- alert, oriented Skin- warm & dry . Laboratory Results: Last 24 Hours Test 10/13/17 07:26 White Blood Count 22.24 K/uL Red Blood Count 4.44 M/uL Hemoglobin 11.7 g/dL Hematocrit 37.9 % Mean Corpuscular Volume 85.4 fL Mean Corpuscular Hemoglobin 26.4 pg Mean Corpuscular Hemoglobin Concent 30.9 g/dl RDW Standard Deviation 60.6 fL RDW Coefficient of Variation 19.3 % Platelet Count 380 K/uL Mean Platelet Volume 8.8 fL Nucleated RBC Absolute Count (auto) 0.02 K/uL Nucleated Red Blood Cells % 0.1 % Creatinine 0.83 mg/dl Est Creatinine Clear Calc Drug Dose 65.4 ml/min Estimated GFR () 84.0 Estimated GFR (Non- 72.5 Assessment & Plan EXACERBATION COPD No infiltrates on chest CT. IV steroids, bronchodilators. Pulmonary Medicine consulted. Wean steroids as tolerated-methylprednisolone decreased to 40 mg IV every 12 hours. CHRONIC HYPOXIC RESPIRATORY FAILURE Secondary to COPD. On home O2 @ 2 LPM. Continue supplemental oxygen. PULMONARY NODULE 8 mm nodule noted RML. Stable since 2015. F/U CT in 6 months recommended. HYPERTENSION Continue furosemide. GERD Continue ranitidine and pantoprazole. DEPRESSION Continue sertraline. LEUKOCYTOSIS WBC 22,000. Leukocytosis possibly secondary to steroid therapy. Follow. VTE PROPHYLAXIS SQ enoxaparin. Ambulate. DISPOSITION Expected discharge to home. Internal Medicine follow-up with Dr. Clemons. . Current Inpatient Medications: Current Inpatient Medications Medications (Trade) Dose Ordered Sig/Edis Route Start Time Stop Time Status Last Admin Dose Admin Enoxaparin Sodium (Lovenox Inj) 40 mg Q24H SQ 10/10/17 21:00 11/09/17 20:59 10/12/17 20:16 40 MG Acetaminophen (Tylenol Tab) 650 mg Q4H PRN PO 10/10/17 14:45 11/09/17 14:44 10/11/17 08:38 650 MG Ioversol (Optiray 320) 100 ml UD PRN IV 10/10/17 15:15 10/14/17 15:14 Atorvastatin Calcium (Lipitor Tab) 10 mg HS PO 10/10/17 21:00 11/09/17 20:59 10/12/17 20:18 10 MG Budesonide (Pulmicort Respules 0.5MG/ 2ML Neb Soln) 0.5 mg BIDR INH 10/10/17 20:00 11/09/17 19:59 10/13/17 07:15 0.5 MG Cholecalciferol (Vitamin D Tab) 1,000 inter.unit HS PO 10/10/17 21:00 11/09/17 20:59 10/12/17 20:16 1,000 INTER.UNIT Ferrous Sulfate (Feosol Tab) 325 mg BID PO 10/10/17 20:00 11/09/17 19:59 10/13/17 08:45 325 MG Furosemide (Lasix Tab) 20 mg QAM PO 10/11/17 08:00 11/10/17 07:59 10/13/17 08:43 20 MG Lorazepam (Ativan Tab) 1 mg TID PRN PO 10/10/17 15:00 11/09/17 14:59 10/13/17 08:49 1 MG Pantoprazole Sodium (Protonix Tab) 40 mg BID PO 10/10/17 20:00 11/09/17 19:59 10/13/17 08:45 40 MG Potassium Chloride (Klor-Con Tab) 20 meq QAM PO 10/11/17 08:00 11/10/17 07:59 10/13/17 08:44 20 MEQ Ranitidine HCl (zANTac TAB) 150 mg BID PO 10/10/17 20:00 11/09/17 19:59 10/13/17 08:43 150 MG Sertraline HCl (Zoloft Tab) 100 mg HS PO 10/10/17 21:00 11/09/17 20:59 10/12/17 20:15 100 MG Montelukast Sodium (Singulair Tab) 10 mg DAILY PO 10/11/17 08:00 11/10/17 07:59 10/13/17 08:43 10 MG Cholecalciferol (Vitamin D Tab) 2,000 inter.unit QAM PO 10/11/17 08:00 11/10/17 07:59 10/13/17 08:43 2,000 INTER.UNIT Levalbuterol (Xopenex 0.63 Mg/ 3 Ml Neb) 0.63 mg Q4 INH 10/10/17 16:00 11/09/17 15:59 10/13/17 15:37 0.63 MG Levalbuterol (Xopenex 0.63 Mg/ 3 Ml Neb) 0.63 mg Q2H PRN INH 10/10/17 15:30 11/09/17 15:29 10/11/17 07:37 0.63 MG Nystatin (Mycostatin Susp) 5 ml QID PO 10/10/17 21:30 10/20/17 21:29 10/13/17 17:16 5 ML Tramadol HCl (Ultram Tab) 50 mg Q8H PRN PO 10/10/17 21:30 11/09/17 21:29 10/13/17 08:50 50 MG Benzonatate (Tessalon Perles Cap) 100 mg TID PO 10/10/17 21:30 11/09/17 21:29 10/13/17 13:17 100 MG Hydrocodone Bit/ Homatropine Methylb (Hycodan Syrup) 5 ml HS PRN PO 10/10/17 21:30 10/24/17 21:29 10/12/17 20:20 5 ML Guaifenesin/ Dextromethorphan (Robitussin-Dm Syrup) 5 ml Q4H PRN PO 10/11/17 03:45 11/10/17 03:44 10/13/17 08:45 5 ML Docusate Sodium (coLACE CAP) 100 mg DAILY PO 10/12/17 08:00 11/11/17 07:59 10/13/17 08:45 100 MG Gabapentin (Neurontin Cap) 100 mg TID PO 10/12/17 14:00 11/11/17 13:59 10/13/17 13:17 100 MG Ascorbic Acid (Vitamin C Tab) 500 mg HS PO 10/12/17 21:00 11/10/17 07:59 10/12/17 20:17 500 MG Polyethylene (Miralax Powder Packet) 17 gm BID PRN PO 10/12/17 10:30 11/11/17 10:29 Tiotropium [place]/Olodaterol (Stiolto Respimat 2.5-2.5 Mcg/Act) 5 mcg DAILY INH 10/13/17 08:00 11/12/17 07:59 10/13/17 08:45 5 MCG Methylprednisolone Sodium Succinate 40 mg/Syringe 0.64 ml @ 1.5 mls/min Q12 IV 10/13/17 21:00 11/09/17 20:59
[2017-10-13] MEDS: SERTRALINE HCL 100 MG TAB PO SCH (20:40)
[2017-10-13] MEDS: ATORVASTATIN 10 MG TAB PO SCH (20:41)
[2017-10-13] MEDS: ENOXAPARIN 40 MG/0.4 ML SYR SQ SCH (20:41)
[2017-10-13] MEDS: ASCORBIC ACID 500 MG TAB PO SCH (20:41)
[2017-10-13] MEDS: HYDROCODONE/HOMATROPINE SYRUP 5MG/1.5MG 5ML UDP PO PRN (20:47)
[2017-10-14] VITALS (11 sets, daily range): BP systolic 138–165; BP diastolic 72–81; PULSE 80–95; TEMP 36.6–36.9; O2SAT 96–99
[2017-10-14] MEDS: LEVALBUTEROL 0.63MG/3 ML NEB INH SCH ×6 (03:15→23:13)
[2017-10-14] MEDS: HYDROCODONE/HOMATROPINE SYRUP 5MG/1.5MG 5ML UDP PO PRN ×2 (03:32→21:00)
[2017-10-14] MEDS: BUDESONIDE 0.5 MG/2 ML VIAL (PULMICORT) INH SCH ×2 (07:11→19:25)
[2017-10-14] MEDS: LORAZEPAM 1 MG TAB PO PRN ×2 (07:45→21:01)
[2017-10-14] MEDS: ACETAMINOPHEN 325 MG TAB PO PRN (07:45)
[2017-10-14] MEDS: TRAMADOL HCL 50 MG TAB PO PRN ×2 (07:45→21:01)
[2017-10-14] MEDS: PANTOprazole SOD 40 MG TAB PO SCH ×2 (07:46→21:00)
[2017-10-14] MEDS: DOCUSATE SODIUM 100 MG CAP PO SCH (07:46)
[2017-10-14] MEDS: FUROSEMIDE 20 MG TAB PO SCH (07:46)
[2017-10-14] MEDS: MONTELUKAST SOD 10 MG TAB PO SCH (07:46)
[2017-10-14] MEDS: CHOLECALCIFEROL 1000 INTER.UNIT TAB PO SCH ×2 (07:46→21:02)
[2017-10-14] MEDS: GUAIFENESIN/DEXTROM SYRUP 100MG/10MG 5ML UDC PO PRN (07:46)
[2017-10-14] MEDS: GABAPENTIN 100 MG CAP PO SCH ×3 (07:47→21:03)
[2017-10-14] MEDS: BENZONATATE 100MG CAP PO SCH ×3 (07:47→21:03)
[2017-10-14] MEDS: RANITIDINE HCL 150 MG TAB PO SCH ×2 (07:48→21:00)
[2017-10-14] MEDS: TIOTROPIUM BROMIDE-OLODATEROL 2.5-2.5MCG/ACT INH SCH (07:48)
[2017-10-14] MEDS: POTASSIUM CHLORIDE 20 MEQ TABCR PO SCH (07:48)
[2017-10-14] MEDS: NYSTATIN SUSP 500,000 U/5 ML UDC PO SCH ×4 (07:48→20:59)
[2017-10-14] MEDS: FERROUS SULFATE 325 MG TAB PO SCH ×2 (07:48→21:03)
[2017-10-14] MEDS: METHYLPREDNISOLONE IV 40 MG in SYRINGE 0 ML IV SCH ×2 (09:20→21:00)
--- NOTE | 2017-10-14 12:49 | PULMONARY PROGRESS NOTE ---
DATE: 10/14/2017 TIME: 11:25 a.m. SUBJECTIVE: The patient had a bad night. She had increasing cough. This was confirmed by nursing. She feels very fatigued today from not sleeping well. Nursing thought she was more congested today. OBJECTIVE: GENERAL: The patient was comfortable. She did not cough very much during my exam. VITAL SIGNS: Temperature is 36.6. Heart rate was 82 per minute. The rhythm was regular. Blood pressure 143/80. LUNGS: Lung becerra revealed mild wheeze. I thought she actually sounded better today than yesterday. Respiratory rate is 16. Saturation 99% on 2 liters. EXTREMITIES: Showed no cyanosis, clubbing or edema. LABORATORY DATA: The patient had immunoglobulins performed. The IgG level is low at 558.0. IgA was normal at 134. IgM was normal at 216. 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 IMPRESSIONS: 1. Chronic obstructive pulmonary disease with exacerbation. 2. Intractable cough. 3. Chronic sinus disease. 4. Decreased IgG - questionable clinical significance. 5. Obstructive sleep apnea - untreated. COMMENTS AND RECOMMENDATIONS: When I heard the patient had increasing coughing, I suspect that it may have been from a decrease in the steroids. However, when I examined her at this time, she actually sounds quite good. Thus, I will not increase the steroids back. We will keep at this level for now. Would also continue with her other medicines. As noted, she has some decrease in her IgG. I am not certain if that is low enough to qualify for treatment with supplementation of immunoglobulins. It may need to be rechecked at a later date for confirmation. The IgE level is still pending. For now, would carry on as present. I am off pulmonary service as of tomorrow. I believe there will be a locum coming for pulmonary. I will sign off for now, but please feel free to call the pulmonary service again if you would like her to be reevaluated. She should have a followup with the pulmonary office sometime in the near future.
--- NOTE | 2017-10-14 18:10 | Progress Note ---
Medicine Progress Note Date & Time of Visit: Oct 14, 2017 . Subjective CC: Follow-up visit for COPD and other problems. HPI: Not much change. Persistent cough, wheezing, shortness of breath. Cough is congested and productive of clear sputum. Didn't get much sleep last night due to paroxysms of coughing. ROS: General- no fever, no chills Resp- as noted above in HPI Cardiac- no angina, no edema GI- no nausea, no vomiting, diarrhea - no dysuria . Objective Last 8 Hrs Date Time Temp Pulse Resp B/P (MAP) Pulse Ox O2 Delivery O2 Flow Rate FiO2 10/14/17 17:15 Nasal Cannula 2.0 10/14/17 15:56 36.9 86 18 138/80 (99) 96 Nasal Cannula 2.0 10/14/17 15:07 85 16 98 Nasal Cannula 2.0 10/14/17 11:10 82 16 99 Nasal Cannula 2.0 Physical Exam: General- lying in bed, no distress Lungs- scattered rhonchi, diffuse moderate wheezing; no acute respiratory distress Cardiovascular- RRR; no gallop; no JVD; no pretibial edema Abdomen- + bowel sounds, soft, nontender Extremities- no cyanosis; no calf tenderness Neuro- alert, oriented Skin- warm & dry . Assessment & Plan EXACERBATION COPD No infiltrates on chest CT. IV steroids, bronchodilators. Pulmonary Medicine consulted. Wean steroids as tolerated-methylprednisolone decreased to 40 mg IV every 12 hours. CHRONIC HYPOXIC RESPIRATORY FAILURE Secondary to COPD. On home O2 @ 2 LPM. Continue supplemental oxygen. PULMONARY NODULE 8 mm nodule noted RML. Stable since 2016. F/U CT in 6 months recommended. HYPERTENSION Continue furosemide. GERD Continue ranitidine and pantoprazole. DEPRESSION Continue sertraline. LEUKOCYTOSIS WBC 22,000. Leukocytosis possibly secondary to steroid therapy. Follow. VTE PROPHYLAXIS SQ enoxaparin. Ambulate. DISPOSITION Expected discharge to home. Internal Medicine follow-up with Dr. Clemons. . Current Inpatient Medications: Current Inpatient Medications Medications (Trade) Dose Ordered Sig/Edis Route Start Time Stop Time Status Last Admin Dose Admin Enoxaparin Sodium (Lovenox Inj) 40 mg Q24H SQ 10/10/17 21:00 11/09/17 20:59 10/13/17 20:41 40 MG Acetaminophen (Tylenol Tab) 650 mg Q4H PRN PO 10/10/17 14:45 11/09/17 14:44 10/14/17 07:45 650 MG Atorvastatin Calcium (Lipitor Tab) 10 mg HS PO 10/10/17 21:00 11/09/17 20:59 10/13/17 20:41 10 MG Budesonide (Pulmicort Respules 0.5MG/ 2ML Neb Soln) 0.5 mg BIDR INH 10/10/17 20:00 11/09/17 19:59 10/14/17 07:11 0.5 MG Cholecalciferol (Vitamin D Tab) 1,000 inter.unit HS PO 10/10/17 21:00 11/09/17 20:59 10/13/17 20:41 1,000 INTER.UNIT Ferrous Sulfate (Feosol Tab) 325 mg BID PO 10/10/17 20:00 11/09/17 19:59 10/14/17 07:48 325 MG Furosemide (Lasix Tab) 20 mg QAM PO 10/11/17 08:00 11/10/17 07:59 10/14/17 07:46 20 MG Lorazepam (Ativan Tab) 1 mg TID PRN PO 10/10/17 15:00 11/09/17 14:59 10/14/17 07:45 1 MG Pantoprazole Sodium (Protonix Tab) 40 mg BID PO 10/10/17 20:00 11/09/17 19:59 10/14/17 07:46 40 MG Potassium Chloride (Klor-Con Tab) 20 meq QAM PO 10/11/17 08:00 11/10/17 07:59 10/14/17 07:48 20 MEQ Ranitidine HCl (zANTac TAB) 150 mg BID PO 10/10/17 20:00 11/09/17 19:59 10/14/17 07:48 150 MG Sertraline HCl (Zoloft Tab) 100 mg HS PO 10/10/17 21:00 11/09/17 20:59 10/13/17 20:40 100 MG Montelukast Sodium (Singulair Tab) 10 mg DAILY PO 10/11/17 08:00 11/10/17 07:59 10/14/17 07:46 10 MG Cholecalciferol (Vitamin D Tab) 2,000 inter.unit QAM PO 10/11/17 08:00 11/10/17 07:59 10/14/17 07:46 2,000 INTER.UNIT Levalbuterol (Xopenex 0.63 Mg/ 3 Ml Neb) 0.63 mg Q4 INH 10/10/17 16:00 11/09/17 15:59 10/14/17 15:07 0.63 MG Levalbuterol (Xopenex 0.63 Mg/ 3 Ml Neb) 0.63 mg Q2H PRN INH 10/10/17 15:30 11/09/17 15:29 10/11/17 07:37 0.63 MG Nystatin (Mycostatin Susp) 5 ml QID PO 10/10/17 21:30 10/20/17 21:29 10/14/17 16:56 5 ML Tramadol HCl (Ultram Tab) 50 mg Q8H PRN PO 10/10/17 21:30 11/09/17 21:29 10/14/17 07:45 50 MG Benzonatate (Tessalon Perles Cap) 100 mg TID PO 10/10/17 21:30 11/09/17 21:29 10/14/17 14:12 100 MG Hydrocodone Bit/ Homatropine Methylb (Hycodan Syrup) 5 ml HS PRN PO 10/10/17 21:30 10/24/17 21:29 10/14/17 03:32 5 ML Guaifenesin/ Dextromethorphan (Robitussin-Dm Syrup) 5 ml Q4H PRN PO 10/11/17 03:45 11/10/17 03:44 10/14/17 07:46 5 ML Docusate Sodium (coLACE CAP) 100 mg DAILY PO 10/12/17 08:00 11/11/17 07:59 10/14/17 07:46 100 MG Gabapentin (Neurontin Cap) 100 mg TID PO 10/12/17 14:00 11/11/17 13:59 10/14/17 14:12 100 MG Ascorbic Acid (Vitamin C Tab) 500 mg HS PO 10/12/17 21:00 11/10/17 07:59 10/13/17 20:41 500 MG Polyethylene (Miralax Powder Packet) 17 gm BID PRN PO 10/12/17 10:30 11/11/17 10:29 Tiotropium [place]/Olodaterol (Stiolto Respimat 2.5-2.5 Mcg/Act) 5 mcg DAILY INH 10/13/17 08:00 11/12/17 07:59 10/14/17 07:48 5 MCG Methylprednisolone Sodium Succinate 40 mg/Syringe 0.64 ml @ 1.5 mls/min Q12 IV 10/13/17 21:00 11/09/17 20:59 10/14/17 09:20 1.5 MLS/MIN
[2017-10-14] MEDS: ATORVASTATIN 10 MG TAB PO SCH (21:02)
[2017-10-14] MEDS: SERTRALINE HCL 100 MG TAB PO SCH (21:02)
[2017-10-14] MEDS: ASCORBIC ACID 500 MG TAB PO SCH (21:02)
[2017-10-14] MEDS: ENOXAPARIN 40 MG/0.4 ML SYR SQ SCH (21:04)
[2017-10-15] VITALS (9 sets, daily range): BP systolic 144–159; BP diastolic 78–90; PULSE 73–101; TEMP 36.5–36.7; O2SAT 97–100
[2017-10-15] MEDS: LEVALBUTEROL 0.63MG/3 ML NEB INH SCH ×6 (03:19→23:05)
[2017-10-15] MEDS: GUAIFENESIN/DEXTROM SYRUP 100MG/10MG 5ML UDC PO PRN ×3 (03:31→13:19)
[2017-10-15] MEDS: LORAZEPAM 1 MG TAB PO PRN ×3 (03:34→20:31)
[2017-10-15] MEDS: ACETAMINOPHEN 325 MG TAB PO PRN ×2 (03:34→16:16)
[2017-10-15] MEDS: BUDESONIDE 0.5 MG/2 ML VIAL (PULMICORT) INH SCH ×2 (06:55→19:12)
[2017-10-15 07:00] LABS: HEMATOCRIT 36.2 % (37-47); MEAN CELL VOLUME 85.2 fL (80-100); MEAN CORPUSCULAR HEMOGLOBIN 25.9 pg (25-34); MEAN CORPUSCULAR HGB CONC 30.4 g/dl (32-36); PLATELET COUNT 348 K/uL (130-400); RED CELL DISTRIBUTION WIDTH CV 19.4 % (11.5-14.5); RED CELL DISTRIBUTION WIDTH SD 60.4 fL (36.4-46.3)
[2017-10-15] MEDS: TIOTROPIUM BROMIDE-OLODATEROL 2.5-2.5MCG/ACT INH SCH (08:52)
[2017-10-15] MEDS: METHYLPREDNISOLONE IV 40 MG in SYRINGE 0 ML IV SCH ×2 (08:52→20:31)
[2017-10-15] MEDS: GABAPENTIN 100 MG CAP PO SCH ×3 (08:53→20:29)
[2017-10-15] MEDS: NYSTATIN SUSP 500,000 U/5 ML UDC PO SCH ×4 (08:53→20:28)
[2017-10-15] MEDS: DOCUSATE SODIUM 100 MG CAP PO SCH (08:53)
[2017-10-15] MEDS: BENZONATATE 100MG CAP PO SCH ×3 (08:53→20:29)
[2017-10-15] MEDS: MONTELUKAST SOD 10 MG TAB PO SCH (08:53)
[2017-10-15] MEDS: CHOLECALCIFEROL 1000 INTER.UNIT TAB PO SCH ×2 (08:54→20:30)
[2017-10-15] MEDS: FUROSEMIDE 20 MG TAB PO SCH (08:54)
[2017-10-15] MEDS: POTASSIUM CHLORIDE 20 MEQ TABCR PO SCH (08:54)
[2017-10-15] MEDS: FERROUS SULFATE 325 MG TAB PO SCH ×2 (08:54→20:29)
[2017-10-15] MEDS: RANITIDINE HCL 150 MG TAB PO SCH ×2 (08:55→20:30)
[2017-10-15] MEDS: PANTOprazole SOD 40 MG TAB PO SCH ×2 (08:55→20:30)
[2017-10-15] MEDS: TRAMADOL HCL 50 MG TAB PO PRN ×2 (09:01→20:32)
--- NOTE | 2017-10-15 13:38 | Palliative Care Consultation ---
Consultation Date of Consultation: Oct 15, 2017. Requesting Physician: Dr. Cramer Attending Physician: Dr. Cramer Reason for Consultation: Goals of Care History of Present Illness This pt is a 67 year old female who lives at home with her son and daughter-in- law. She has a history of COPD and is oxygen dependent. Additional PMH includes HTN, osteoporosis, peptic ulcer disease, and GERD. The patient was seen in the pulmonary outpatient clinic and was noted to have a worsening cough, hypoxia, and tachycardia for which she was sent to the ED. She has received abx, pulmonary toileting with nebulizers and steroids. At this time, the patient is showing marked improvement; however, a GOALS OF CARE discussion was warranted prior to her discharge as she has been recently admitted. In discussing GOALS OF CARE, the patient stated that she has completed an Advanced Directive indicating that she does not want to undergo any additional aggressive measures and wants her CODE STATUS to be DNR/DNI. Additionally, she stated she wants limited antibiotics in the event of an infection and does not want any life-prolonging hydration or tube feedings.She did say that she would like to continue returning to the hospital at this time. A POLST form was discussed and completed at the bedside to reflect the AD that was completed. The patient currently is managed by [facility] at home. We did discuss Hospice and what that means. She stated that she is not quite ready for Hospice but is aware that the Home Health agency can transition her when she is ready. The plan, per the patient,is to return home either today or tomorrow. The original POLST was placed in the patients bedside drawer with her AD. A copy was placed on the chart. Thank you kindly for including us in this patients care and are happy to be involved for future needs. Past Medical/Surgical History Medical History: HTN, osteoporosis, peptic ulcer disease, and GERD Social History Smoking Status: Unknown if Ever Smoked History of Alcohol Use: No Drug Use: none Marital Status: single Occupation Status: retired Review of Systems General: patient denies pain HEENT: Patient states she still has a cough, (-) dizziness (-) FLORES (-) dysphagia CV: Patient states she does not have any CP, palpitations Resp: Patient states she has 'trouble catching her breathing and taking a deep breath' GI: Patient denies changes with appetite, but states that its harder to catch her breath when she eats : (-) dysuria SKin: (-) new lesions Allergies Coded Allergies: No Known Allergies (Verified , 10/01/17) PER PATIENT Medications Current Inpatient Medications Medications (Trade) Dose Ordered Sig/Edis Route Start Time Stop Time Status Last Admin Dose Admin Enoxaparin Sodium (Lovenox Inj) 40 mg Q24H SQ 10/10/17 21:00 11/09/17 20:59 10/14/17 21:04 40 MG Acetaminophen (Tylenol Tab) 650 mg Q4H PRN PO 10/10/17 14:45 11/09/17 14:44 10/15/17 03:34 650 MG Atorvastatin Calcium (Lipitor Tab) 10 mg HS PO 10/10/17 21:00 11/09/17 20:59 10/14/17 21:02 10 MG Budesonide (Pulmicort Respules 0.5MG/ 2ML Neb Soln) 0.5 mg BIDR INH 10/10/17 20:00 11/09/17 19:59 10/15/17 06:55 0.5 MG Cholecalciferol (Vitamin D Tab) 1,000 inter.unit HS PO 10/10/17 21:00 11/09/17 20:59 10/14/17 21:02 1,000 INTER.UNIT Ferrous Sulfate (Feosol Tab) 325 mg BID PO 10/10/17 20:00 11/09/17 19:59 10/15/17 08:54 325 MG Furosemide (Lasix Tab) 20 mg QAM PO 10/11/17 08:00 11/10/17 07:59 10/15/17 08:54 20 MG Lorazepam (Ativan Tab) 1 mg TID PRN PO 10/10/17 15:00 11/09/17 14:59 10/15/17 12:08 1 MG Pantoprazole Sodium (Protonix Tab) 40 mg BID PO 10/10/17 20:00 11/09/17 19:59 10/15/17 08:55 40 MG Potassium Chloride (Klor-Con Tab) 20 meq QAM PO 10/11/17 08:00 11/10/17 07:59 10/15/17 08:54 20 MEQ Ranitidine HCl (zANTac TAB) 150 mg BID PO 10/10/17 20:00 11/09/17 19:59 10/15/17 08:55 150 MG Sertraline HCl (Zoloft Tab) 100 mg HS PO 10/10/17 21:00 11/09/17 20:59 10/14/17 21:02 100 MG Montelukast Sodium (Singulair Tab) 10 mg DAILY PO 10/11/17 08:00 11/10/17 07:59 10/15/17 08:53 10 MG Cholecalciferol (Vitamin D Tab) 2,000 inter.unit QAM PO 10/11/17 08:00 11/10/17 07:59 10/15/17 08:54 2,000 INTER.UNIT Levalbuterol (Xopenex 0.63 Mg/ 3 Ml Neb) 0.63 mg Q4 INH 10/10/17 16:00 11/09/17 15:59 10/15/17 11:12 0.63 MG Levalbuterol (Xopenex 0.63 Mg/ 3 Ml Neb) 0.63 mg Q2H PRN INH 10/10/17 15:30 11/09/17 15:29 10/11/17 07:37 0.63 MG Nystatin (Mycostatin Susp) 5 ml QID PO 10/10/17 21:30 10/20/17 21:29 10/15/17 12:08 5 ML Tramadol HCl (Ultram Tab) 50 mg Q8H PRN PO 10/10/17 21:30 11/09/17 21:29 10/15/17 09:01 50 MG Benzonatate (Tessalon Perles Cap) 100 mg TID PO 10/10/17 21:30 11/09/17 21:29 10/15/17 13:19 100 MG Hydrocodone Bit/ Homatropine Methylb (Hycodan Syrup) 5 ml HS PRN PO 10/10/17 21:30 10/24/17 21:29 10/14/17 21:00 5 ML Guaifenesin/ Dextromethorphan (Robitussin-Dm Syrup) 5 ml Q4H PRN PO 10/11/17 03:45 11/10/17 03:44 10/15/17 13:19 5 ML Docusate Sodium (coLACE CAP) 100 mg DAILY PO 10/12/17 08:00 11/11/17 07:59 10/15/17 08:53 100 MG Gabapentin (Neurontin Cap) 100 mg TID PO 10/12/17 14:00 11/11/17 13:59 10/15/17 13:19 100 MG Ascorbic Acid (Vitamin C Tab) 500 mg HS PO 10/12/17 21:00 11/10/17 07:59 10/14/17 21:02 500 MG Polyethylene (Miralax Powder Packet) 17 gm BID PRN PO 10/12/17 10:30 11/11/17 10:29 Tiotropium [place]/Olodaterol (Stiolto Respimat 2.5-2.5 Mcg/Act) 5 mcg DAILY INH 10/13/17 08:00 11/12/17 07:59 10/15/17 08:52 5 MCG Methylprednisolone Sodium Succinate 40 mg/Syringe 0.64 ml @ 1.5 mls/min Q12 IV 10/13/17 21:00 11/09/17 20:59 10/15/17 08:52 1.5 MLS/MIN Physical Exam Date Time Temp Pulse Resp B/P (MAP) Pulse Ox O2 Delivery O2 Flow Rate FiO2 10/15/17 11:13 86 16 98 Nasal Cannula 2.0 10/15/17 09:00 Nasal Cannula 2.0 10/15/17 06:56 73 16 99 Nasal Cannula 2.0 10/15/17 06:35 36.7 76 20 144/78 (100) 98 Nasal Cannula 2.0 10/15/17 03:19 74 16 98 Nasal Cannula 2.0 10/15/17 01:00 Nasal Cannula 2.0 10/14/17 23:13 83 16 98 Nasal Cannula 2.0 10/14/17 23:05 36.8 90 18 146/81 (102) 98 Nasal Cannula 2.0 10/14/17 19:27 86 16 97 Nasal Cannula 2.0 10/14/17 17:15 Nasal Cannula 2.0 10/14/17 15:56 36.9 86 18 138/80 (99) 96 Nasal Cannula 2.0 10/14/17 15:07 85 16 98 Nasal Cannula 2.0 General Appearance: + mild distress (lying on left side, using abdominal muscles for breathing at rest) Respiratory: + accessory muscle use (pursed lip breathing with extensive sentences in conversation), + wheezing (bases) Cardiovascular: regular rate, rhythm, no gallop, no JVD Abdomen: normal bowel sounds, non tender, soft Musculoskeletal: normal strength (5/5 throughout) Neurologic/Psychiatric: oriented x 3 Skin: warm/dry Laboratory Results Last 24 Hours Test 10/15/17 06:19 White Blood Count 17.30 K/uL Red Blood Count 4.25 M/uL Hemoglobin 11.0 g/dL Hematocrit 36.2 % Mean Corpuscular Volume 85.2 fL Mean Corpuscular Hemoglobin 25.9 pg Mean Corpuscular Hemoglobin Concent 30.4 g/dl RDW Standard Deviation 60.4 fL RDW Coefficient of Variation 19.4 % Platelet Count 348 K/uL Mean Platelet Volume 9.0 fL Assessment & Plan Palliative Performance Scale: 50 % Palliative Care Encounter Goals of Care COPD Palliative Care Recommendations: ADVANCED DIRECTIVE: -Patient completed an Advanced directive indicating that she does not want to undergo any additional aggressive measures and wants her CODE STATUS to be DNR/DNI. -Additionally, she stated she wants limited antibiotics in the event of an infection and does not want any life-prolonging hydration or tube feedings.She did say that she would like to continue returning to the hospital at this time. -A POLST form was discussed and completed at the bedside to reflect the AD that was completed. COPD: -Patient recovering from COPD exacerbation and has returned to her breathing baseline of 2LNC with the treatment of abx, nebulizer treatment and steroids. -We did discuss Hospice and what that means. She stated that she is not quite ready for Hospice but is aware that the Home Health agency can transition her when she is ready. DISCHARGE PLANNING: -The plan, per the patient,is to return home either today or tomorrow. -The original POLST was placed in the patients bedside drawer with her AD. A copy was placed on the chart. -Patient is not ready to discuss having Hospice involved at this time. Counseling and Coordination Total time spent 50 minutes with < 50% of that time reviewing the chart, assessing the patient, discussing GOALS OF CARE and completing a POLST form at the bedside.
[2017-10-15] MEDS: SERTRALINE HCL 100 MG TAB PO SCH (20:30)
[2017-10-15] MEDS: ATORVASTATIN 10 MG TAB PO SCH (20:30)
[2017-10-15] MEDS: ENOXAPARIN 40 MG/0.4 ML SYR SQ SCH (20:31)
[2017-10-15] MEDS: HYDROCODONE/HOMATROPINE SYRUP 5MG/1.5MG 5ML UDP PO PRN (20:31)
[2017-10-15] MEDS: ASCORBIC ACID 500 MG TAB PO SCH (20:31)
--- NOTE | 2017-10-15 20:51 | Progress Note ---
Medicine Progress Note Date & Time of Visit: Oct 15, 2017 at 09:00 . Subjective CC: Follow-up visit for COPD and other problems. HPI: Cough a little better. Got some rest last night. Persistent wheezing. Ambulating. Dyspneic with exertion. ROS: General- no fever, no chills Resp- as noted above in HPI Cardiac- no angina, no edema GI- no nausea, no vomiting, diarrhea - no dysuria . Objective Last 8 Hrs Date Time Temp Pulse Resp B/P (MAP) Pulse Ox O2 Delivery O2 Flow Rate FiO2 10/15/17 19:17 75 16 98 Nasal Cannula 2.0 10/15/17 18:56 Nasal Cannula 2.0 10/15/17 15:53 36.7 89 18 155/80 (105) 100 Nasal Cannula 2.0 10/15/17 15:20 98 16 97 Nasal Cannula 2.0 Physical Exam: General- lying in bed, no distress Lungs- scattered rhonchi, diffuse wheezing; no acute respiratory distress Cardiovascular- RRR; no gallop; no JVD; no pretibial edema Abdomen- + bowel sounds, soft, nontender Extremities- no cyanosis; no calf tenderness Neuro- alert, oriented Skin- warm & dry . Laboratory Results: Last 24 Hours Test 10/15/17 06:19 White Blood Count 17.30 K/uL Red Blood Count 4.25 M/uL Hemoglobin 11.0 g/dL Hematocrit 36.2 % Mean Corpuscular Volume 85.2 fL Mean Corpuscular Hemoglobin 25.9 pg Mean Corpuscular Hemoglobin Concent 30.4 g/dl RDW Standard Deviation 60.4 fL RDW Coefficient of Variation 19.4 % Platelet Count 348 K/uL Mean Platelet Volume 9.0 fL Assessment & Plan EXACERBATION COPD No infiltrates on chest CT. IV steroids, bronchodilators. Pulmonary Medicine consulted. Wean steroids as tolerated-methylprednisolone decreased to 20 mg IV every 12 hours. CHRONIC HYPOXIC RESPIRATORY FAILURE Secondary to COPD. On home O2 @ 2 LPM. Continue supplemental oxygen. PULMONARY NODULE 8 mm nodule noted RML. Stable since 2016. F/U CT in 6 months recommended. HYPERTENSION Continue furosemide. GERD Continue ranitidine and pantoprazole. DEPRESSION Continue sertraline. LEUKOCYTOSIS WBC as high as 22,000. Leukocytosis possibly secondary to steroid therapy. WBC today = 17,300. Follow. VTE PROPHYLAXIS SQ enoxaparin. Ambulate. DISPOSITION Expected discharge to home. Internal Medicine follow-up with Dr. Clemons. ADDENDUM: Patient requested assistance with Advanced Directives. Palliative Care consulted. POLST completed. Patient requested that code status be changed to DNR. . Current Inpatient Medications: Current Inpatient Medications Medications (Trade) Dose Ordered Sig/Edis Route Start Time Stop Time Status Last Admin Dose Admin Enoxaparin Sodium (Lovenox Inj) 40 mg Q24H SQ 10/10/17 21:00 11/09/17 20:59 10/15/17 20:31 40 MG Acetaminophen (Tylenol Tab) 650 mg Q4H PRN PO 10/10/17 14:45 11/09/17 14:44 10/15/17 16:16 650 MG Atorvastatin Calcium (Lipitor Tab) 10 mg HS PO 10/10/17 21:00 11/09/17 20:59 10/15/17 20:30 10 MG Budesonide (Pulmicort Respules 0.5MG/ 2ML Neb Soln) 0.5 mg BIDR INH 10/10/17 20:00 11/09/17 19:59 10/15/17 19:12 0.5 MG Cholecalciferol (Vitamin D Tab) 1,000 inter.unit HS PO 10/10/17 21:00 11/09/17 20:59 10/15/17 20:30 1,000 INTER.UNIT Ferrous Sulfate (Feosol Tab) 325 mg BID PO 10/10/17 20:00 11/09/17 19:59 10/15/17 20:29 325 MG Furosemide (Lasix Tab) 20 mg QAM PO 10/11/17 08:00 11/10/17 07:59 10/15/17 08:54 20 MG Lorazepam (Ativan Tab) 1 mg TID PRN PO 10/10/17 15:00 11/09/17 14:59 10/15/17 20:31 1 MG Pantoprazole Sodium (Protonix Tab) 40 mg BID PO 10/10/17 20:00 11/09/17 19:59 10/15/17 20:30 40 MG Potassium Chloride (Klor-Con Tab) 20 meq QAM PO 10/11/17 08:00 11/10/17 07:59 10/15/17 08:54 20 MEQ Ranitidine HCl (zANTac TAB) 150 mg BID PO 10/10/17 20:00 11/09/17 19:59 10/15/17 20:30 150 MG Sertraline HCl (Zoloft Tab) 100 mg HS PO 10/10/17 21:00 11/09/17 20:59 10/15/17 20:30 100 MG Montelukast Sodium (Singulair Tab) 10 mg DAILY PO 10/11/17 08:00 11/10/17 07:59 10/15/17 08:53 10 MG Cholecalciferol (Vitamin D Tab) 2,000 inter.unit QAM PO 10/11/17 08:00 11/10/17 07:59 10/15/17 08:54 2,000 INTER.UNIT Levalbuterol (Xopenex 0.63 Mg/ 3 Ml Neb) 0.63 mg Q4 INH 10/10/17 16:00 11/09/17 15:59 10/15/17 19:16 0.63 MG Levalbuterol (Xopenex 0.63 Mg/ 3 Ml Neb) 0.63 mg Q2H PRN INH 10/10/17 15:30 11/09/17 15:29 10/11/17 07:37 0.63 MG Nystatin (Mycostatin Susp) 5 ml QID PO 10/10/17 21:30 10/20/17 21:29 10/15/17 20:28 5 ML Tramadol HCl (Ultram Tab) 50 mg Q8H PRN PO 10/10/17 21:30 11/09/17 21:29 10/15/17 20:32 50 MG Benzonatate (Tessalon Perles Cap) 100 mg TID PO 10/10/17 21:30 11/09/17 21:29 10/15/17 20:29 100 MG Hydrocodone Bit/ Homatropine Methylb (Hycodan Syrup) 5 ml HS PRN PO 10/10/17 21:30 10/24/17 21:29 10/15/17 20:31 5 ML Guaifenesin/ Dextromethorphan (Robitussin-Dm Syrup) 5 ml Q4H PRN PO 10/11/17 03:45 11/10/17 03:44 10/15/17 13:19 5 ML Docusate Sodium (coLACE CAP) 100 mg DAILY PO 10/12/17 08:00 11/11/17 07:59 10/15/17 08:53 100 MG Gabapentin (Neurontin Cap) 100 mg TID PO 10/12/17 14:00 11/11/17 13:59 10/15/17 20:29 100 MG Ascorbic Acid (Vitamin C Tab) 500 mg HS PO 10/12/17 21:00 11/10/17 07:59 10/15/17 20:31 500 MG Polyethylene (Miralax Powder Packet) 17 gm BID PRN PO 10/12/17 10:30 11/11/17 10:29 Tiotropium [place]/Olodaterol (Stiolto Respimat 2.5-2.5 Mcg/Act) 5 mcg DAILY INH 10/13/17 08:00 11/12/17 07:59 10/15/17 08:52 5 MCG Methylprednisolone Sodium Succinate 40 mg/Syringe 0.64 ml @ 1.5 mls/min Q12 IV 10/13/17 21:00 11/09/17 20:59 10/15/17 20:31 1.5 MLS/MIN
[2017-10-16] VITALS (11 sets, daily range): BP systolic 127–149; BP diastolic 74–87; PULSE 68–94; TEMP 36.4–36.8; O2SAT 97–98
[2017-10-16] MEDS: LEVALBUTEROL 0.63MG/3 ML NEB INH SCH ×6 (04:40→22:48)
[2017-10-16 06:59] LABS: HEMATOCRIT 36.2 % (37-47); HEMOGLOBIN 11.3 g/dL (12.0-16.0); MEAN CELL VOLUME 85.2 fL (80-100); MEAN CORPUSCULAR HEMOGLOBIN 26.6 pg (25-34); MEAN CORPUSCULAR HGB CONC 31.2 g/dl (32-36); MEAN PLATELET VOLUME 8.9 fL (7.4-10.4); PLATELET COUNT 332 K/uL (130-400); RED CELL DISTRIBUTION WIDTH CV 19.3 % (11.5-14.5); RED CELL DISTRIBUTION WIDTH SD 59.6 fL (36.4-46.3); WHITE BLOOD COUNT 18.41 K/uL (4.8-10.8)
[2017-10-16 07:28] LABS: CREATININE 0.75 mg/dl (0.60-1.20)
[2017-10-16] MEDS: BUDESONIDE 0.5 MG/2 ML VIAL (PULMICORT) INH SCH ×2 (07:44→19:10)
[2017-10-16] MEDS: LORAZEPAM 1 MG TAB PO PRN ×2 (08:24→20:58)
[2017-10-16] MEDS: CHOLECALCIFEROL 1000 INTER.UNIT TAB PO SCH ×2 (08:25→20:53)
[2017-10-16] MEDS: BENZONATATE 100MG CAP PO SCH ×3 (08:25→20:51)
[2017-10-16] MEDS: GABAPENTIN 100 MG CAP PO SCH ×3 (08:25→20:52)
[2017-10-16] MEDS: TRAMADOL HCL 50 MG TAB PO PRN ×2 (08:25→21:00)
[2017-10-16] MEDS: FUROSEMIDE 20 MG TAB PO SCH (08:26)
[2017-10-16] MEDS: FERROUS SULFATE 325 MG TAB PO SCH ×2 (08:26→20:52)
[2017-10-16] MEDS: PANTOprazole SOD 40 MG TAB PO SCH ×2 (08:26→20:52)
[2017-10-16] MEDS: RANITIDINE HCL 150 MG TAB PO SCH ×2 (08:26→20:53)
[2017-10-16] MEDS: POTASSIUM CHLORIDE 20 MEQ TABCR PO SCH (08:26)
[2017-10-16] MEDS: DOCUSATE SODIUM 100 MG CAP PO SCH (08:26)
[2017-10-16] MEDS: GUAIFENESIN/DEXTROM SYRUP 100MG/10MG 5ML UDC PO PRN ×3 (08:27→18:53)
[2017-10-16] MEDS: MONTELUKAST SOD 10 MG TAB PO SCH (08:27)
[2017-10-16] MEDS: NYSTATIN SUSP 500,000 U/5 ML UDC PO SCH ×4 (08:27→20:52)
[2017-10-16] MEDS: TIOTROPIUM BROMIDE-OLODATEROL 2.5-2.5MCG/ACT INH SCH (08:28)
--- NOTE | 2017-10-16 12:31 | Progress Note ---
Medicine Progress Note Date & Time of Visit: Oct 16, 2017 at ~ 11:00 . Subjective CC: Follow-up visit for COPD and other problems. HPI: Persistent coughing and wheezing. Doesn't fell comfortable going home yet. ROS: General- no fever, no chills Resp- as noted above in HPI Cardiac- no angina, no edema GI- no nausea, no vomiting, diarrhea - . Objective Last 8 Hrs Date Time Temp Pulse Resp B/P (MAP) Pulse Ox O2 Delivery O2 Flow Rate FiO2 10/16/17 11:24 86 16 98 Nasal Cannula 2.0 10/16/17 08:00 Nasal Cannula 2.0 10/16/17 07:33 36.4 72 20 149/86 (107) 98 Nasal Cannula 2.0 10/16/17 07:16 68 16 98 Nasal Cannula 2.0 10/16/17 04:41 74 16 98 Nasal Cannula 2.0 Physical Exam: General- lying in bed, no distress Lungs- scattered rhonchi, diffuse wheezing; no acute respiratory distress Cardiovascular- RRR; no gallop; no JVD; no pretibial edema Abdomen- + bowel sounds, soft, nontender Extremities- no cyanosis; no calf tenderness Neuro- alert, oriented Skin- warm & dry . Laboratory Results: Last 24 Hours Test 10/16/17 05:51 White Blood Count 18.41 K/uL Red Blood Count 4.25 M/uL Hemoglobin 11.3 g/dL Hematocrit 36.2 % Mean Corpuscular Volume 85.2 fL Mean Corpuscular Hemoglobin 26.6 pg Mean Corpuscular Hemoglobin Concent 31.2 g/dl RDW Standard Deviation 59.6 fL RDW Coefficient of Variation 19.3 % Platelet Count 332 K/uL Mean Platelet Volume 8.9 fL Creatinine 0.75 mg/dl Est Creatinine Clear Calc Drug Dose 72.4 ml/min Estimated GFR () 94.9 Estimated GFR (Non- 81.9 Assessment & Plan EXACERBATION COPD No infiltrates on chest CT. IV steroids, bronchodilators. Pulmonary Medicine consulted. Wean steroids slowly as tolerated. CHRONIC HYPOXIC RESPIRATORY FAILURE Secondary to COPD. On home O2 @ 2 LPM. Continue supplemental oxygen. PULMONARY NODULE 8 mm nodule noted RML. Stable since 2015. F/U CT in 6 months recommended. HYPERTENSION Continue furosemide. GERD Continue ranitidine and pantoprazole. DEPRESSION Continue sertraline. LEUKOCYTOSIS WBC as high as 22,000. Leukocytosis probably secondary to steroid therapy. WBC today = 18,000. Follow. VTE PROPHYLAXIS SQ enoxaparin. Ambulate. ADVANCED DIRECTIVES Patient requested assistance with Advanced Directives. Palliative Care consulted. POLST completed. Patient requested that code status be changed to DNR. DISPOSITION Expected discharge to home. Internal Medicine follow-up with Dr. Clemons. Pulmonary Medicine follow-up with Bubba Paez PA-C. . Current Inpatient Medications: Current Inpatient Medications Medications (Trade) Dose Ordered Sig/Edis Route Start Time Stop Time Status Last Admin Dose Admin Enoxaparin Sodium (Lovenox Inj) 40 mg Q24H SQ 10/10/17 21:00 11/09/17 20:59 10/15/17 20:31 40 MG Acetaminophen (Tylenol Tab) 650 mg Q4H PRN PO 10/10/17 14:45 11/09/17 14:44 10/15/17 16:16 650 MG Atorvastatin Calcium (Lipitor Tab) 10 mg HS PO 10/10/17 21:00 11/09/17 20:59 10/15/17 20:30 10 MG Budesonide (Pulmicort Respules 0.5MG/ 2ML Neb Soln) 0.5 mg BIDR INH 10/10/17 20:00 11/09/17 19:59 10/16/17 07:44 0.5 MG Cholecalciferol (Vitamin D Tab) 1,000 inter.unit HS PO 10/10/17 21:00 11/09/17 20:59 10/15/17 20:30 1,000 INTER.UNIT Ferrous Sulfate (Feosol Tab) 325 mg BID PO 10/10/17 20:00 11/09/17 19:59 10/16/17 08:26 325 MG Furosemide (Lasix Tab) 20 mg QAM PO 10/11/17 08:00 11/10/17 07:59 10/16/17 08:26 20 MG Lorazepam (Ativan Tab) 1 mg TID PRN PO 10/10/17 15:00 11/09/17 14:59 10/16/17 08:24 1 MG Pantoprazole Sodium (Protonix Tab) 40 mg BID PO 10/10/17 20:00 11/09/17 19:59 10/16/17 08:26 40 MG Potassium Chloride (Klor-Con Tab) 20 meq QAM PO 10/11/17 08:00 11/10/17 07:59 10/16/17 08:26 20 MEQ Ranitidine HCl (zANTac TAB) 150 mg BID PO 10/10/17 20:00 11/09/17 19:59 10/16/17 08:26 150 MG Sertraline HCl (Zoloft Tab) 100 mg HS PO 10/10/17 21:00 11/09/17 20:59 10/15/17 20:30 100 MG Montelukast Sodium (Singulair Tab) 10 mg DAILY PO 10/11/17 08:00 11/10/17 07:59 10/16/17 08:27 10 MG Cholecalciferol (Vitamin D Tab) 2,000 inter.unit QAM PO 10/11/17 08:00 11/10/17 07:59 10/16/17 08:25 2,000 INTER.UNIT Levalbuterol (Xopenex 0.63 Mg/ 3 Ml Neb) 0.63 mg Q4 INH 10/10/17 16:00 11/09/17 15:59 10/16/17 11:23 0.63 MG Levalbuterol (Xopenex 0.63 Mg/ 3 Ml Neb) 0.63 mg Q2H PRN INH 10/10/17 15:30 11/09/17 15:29 10/11/17 07:37 0.63 MG Nystatin (Mycostatin Susp) 5 ml QID PO 10/10/17 21:30 10/20/17 21:29 10/16/17 11:24 5 ML Tramadol HCl (Ultram Tab) 50 mg Q8H PRN PO 10/10/17 21:30 11/09/17 21:29 10/16/17 08:25 50 MG Benzonatate (Tessalon Perles Cap) 100 mg TID PO 10/10/17 21:30 11/09/17 21:29 10/16/17 08:25 100 MG Hydrocodone Bit/ Homatropine Methylb (Hycodan Syrup) 5 ml HS PRN PO 10/10/17 21:30 10/24/17 21:29 10/15/17 20:31 5 ML Guaifenesin/ Dextromethorphan (Robitussin-Dm Syrup) 5 ml Q4H PRN PO 10/11/17 03:45 11/10/17 03:44 10/16/17 08:27 5 ML Docusate Sodium (coLACE CAP) 100 mg DAILY PO 10/12/17 08:00 11/11/17 07:59 10/16/17 08:26 100 MG Gabapentin (Neurontin Cap) 100 mg TID PO 10/12/17 14:00 11/11/17 13:59 10/16/17 08:25 100 MG Ascorbic Acid (Vitamin C Tab) 500 mg HS PO 10/12/17 21:00 11/10/17 07:59 10/15/17 20:31 500 MG Polyethylene (Miralax Powder Packet) 17 gm BID PRN PO 10/12/17 10:30 11/11/17 10:29 Tiotropium [place]/Olodaterol (Stiolto Respimat 2.5-2.5 Mcg/Act) 5 mcg DAILY INH 10/13/17 08:00 11/12/17 07:59 10/16/17 08:28 5 MCG Prednisone (PredniSONE TAB) 60 mg DAILY PO 10/16/17 08:00 11/15/17 07:59 10/16/17 08:25 60 MG
[2017-10-16] MEDS: HYDROCODONE/HOMATROPINE SYRUP 5MG/1.5MG 5ML UDP PO PRN (20:51)
[2017-10-16] MEDS: ATORVASTATIN 10 MG TAB PO SCH (20:53)
[2017-10-16] MEDS: ENOXAPARIN 40 MG/0.4 ML SYR SQ SCH (20:53)
[2017-10-16] MEDS: SERTRALINE HCL 100 MG TAB PO SCH (20:54)
[2017-10-16] MEDS: ASCORBIC ACID 500 MG TAB PO SCH (20:54)
[2017-10-17] VITALS (9 sets, daily range): BP systolic 127–146; BP diastolic 73–83; PULSE 75–97; TEMP 36.5–36.7; O2SAT 94–100
[2017-10-17] MEDS: LEVALBUTEROL 0.63MG/3 ML NEB INH SCH ×6 (03:19→23:17)
[2017-10-17] MEDS: ONDANSETRON INJ 2 MG/ML 2 ML VIAL IV PRN ×2 (03:53→23:56)
[2017-10-17] MEDS: BUDESONIDE 0.5 MG/2 ML VIAL (PULMICORT) INH SCH ×2 (06:54→19:14)
[2017-10-17] MEDS: LORAZEPAM 1 MG TAB PO PRN ×2 (08:11→20:30)
[2017-10-17] MEDS: RANITIDINE HCL 150 MG TAB PO SCH ×2 (08:11→20:31)
[2017-10-17] MEDS: FUROSEMIDE 20 MG TAB PO SCH (08:12)
[2017-10-17] MEDS: POTASSIUM CHLORIDE 20 MEQ TABCR PO SCH (08:12)
[2017-10-17] MEDS: BENZONATATE 100MG CAP PO SCH ×3 (08:12→20:31)
[2017-10-17] MEDS: FERROUS SULFATE 325 MG TAB PO SCH ×2 (08:13→20:30)
[2017-10-17] MEDS: MONTELUKAST SOD 10 MG TAB PO SCH (08:13)
[2017-10-17] MEDS: GABAPENTIN 100 MG CAP PO SCH ×3 (08:13→20:30)
[2017-10-17] MEDS: PANTOprazole SOD 40 MG TAB PO SCH ×2 (08:13→20:31)
[2017-10-17] MEDS: DOCUSATE SODIUM 100 MG CAP PO SCH (08:14)
[2017-10-17] MEDS: CHOLECALCIFEROL 1000 INTER.UNIT TAB PO SCH ×2 (08:14→20:32)
[2017-10-17] MEDS: NYSTATIN SUSP 500,000 U/5 ML UDC PO SCH ×4 (08:15→20:30)
[2017-10-17] MEDS: TRAMADOL HCL 50 MG TAB PO PRN ×2 (08:16→20:29)
[2017-10-17] MEDS: TIOTROPIUM BROMIDE-OLODATEROL 2.5-2.5MCG/ACT INH SCH (08:17)
[2017-10-17] MEDS ORDERED: ALUMINUM/MAGNESIUM SUSP 30 ML UDC PO PRN (11:30)
--- NOTE | 2017-10-17 11:30 | Progress Note ---
Medicine Progress Note Date & Time of Visit: Oct 17, 2017 at 11:30. Subjective seen resting in bed, sitting up not in distress states she does not feel well today- "i feel sick in my stomach" has some nausea (+) BM, no blood (+) flatus breathing is improving, still has cough denies other symptoms Objective Last 8 Hrs Date Time Temp Pulse Resp B/P (MAP) Pulse Ox O2 Delivery O2 Flow Rate FiO2 10/17/17 11:14 84 16 96 Nasal Cannula 2.0 10/17/17 08:15 Nasal Cannula 2.0 10/17/17 07:09 36.5 80 16 146/83 (104) 100 2.0 10/17/17 06:55 82 16 98 Nasal Cannula 2.0 Physical Exam: General- oriented x 3, not in distress, speaks in sentences with no effort Head- atraumatic Eyes- PERRL, EOMI, anicteric ENT- oropharynx clear Neck- supple, no JVD, no adenopathy, no thyromegaly Lungs- clear to auscultation bilaterally, no rales/wheezes Heart- regular rhythm; no murmur, normal rate Abdomen- normal bowel sounds, soft, nontender Extremities- no pretibial edema, no calf tenderness; peripheral pulses intact Neuro- alert, oriented x 3; no gross focal deficits Skin- warm & dry Assessment & Plan EXACERBATION COPD No infiltrates on chest CT. IV steroids, bronchodilators. Pulmonary Medicine consulted. -- now on Prednisone taper monitor CHRONIC HYPOXIC RESPIRATORY FAILURE Secondary to COPD. On home O2 @ 2 LPM, at baseline DYSPEPSIA from Prednisone? will add PRN Maalox continue Protonix, Ranitidine PULMONARY NODULE 8 mm nodule noted RML. Stable since 2016. F/U CT in 6 months recommended. HYPERTENSION Continue furosemide. GERD Continue ranitidine and pantoprazole. DEPRESSION Continue sertraline. LEUKOCYTOSIS WBC as high as 22,000. Leukocytosis probably secondary to steroid therapy. will monitor VTE PROPHYLAXIS SQ enoxaparin. Ambulate. ADVANCED DIRECTIVES Patient requested assistance with Advanced Directives. Palliative Care consulted. POLST completed. Patient requested that code status be changed to DNR. DISPOSITION Expected discharge to home. Internal Medicine follow-up with Dr. Clemons. Pulmonary Medicine follow-up with Bubba Paez PA-C. Current Inpatient Medications: Current Inpatient Medications Medications (Trade) Dose Ordered Sig/Edis Route Start Time Stop Time Status Last Admin Dose Admin Enoxaparin Sodium (Lovenox Inj) 40 mg Q24H SQ 10/10/17 21:00 11/09/17 20:59 10/16/17 20:53 40 MG Acetaminophen (Tylenol Tab) 650 mg Q4H PRN PO 10/10/17 14:45 11/09/17 14:44 10/15/17 16:16 650 MG Atorvastatin Calcium (Lipitor Tab) 10 mg HS PO 10/10/17 21:00 11/09/17 20:59 10/16/17 20:53 10 MG Budesonide (Pulmicort Respules 0.5MG/ 2ML Neb Soln) 0.5 mg BIDR INH 10/10/17 20:00 11/09/17 19:59 10/17/17 06:54 0.5 MG Cholecalciferol (Vitamin D Tab) 1,000 inter.unit HS PO 10/10/17 21:00 11/09/17 20:59 10/16/17 20:53 1,000 INTER.UNIT Ferrous Sulfate (Feosol Tab) 325 mg BID PO 10/10/17 20:00 11/09/17 19:59 10/17/17 08:13 325 MG Furosemide (Lasix Tab) 20 mg QAM PO 10/11/17 08:00 11/10/17 07:59 10/17/17 08:12 20 MG Lorazepam (Ativan Tab) 1 mg TID PRN PO 10/10/17 15:00 11/09/17 14:59 10/17/17 08:11 1 MG Pantoprazole Sodium (Protonix Tab) 40 mg BID PO 10/10/17 20:00 11/09/17 19:59 10/17/17 08:13 40 MG Potassium Chloride (Klor-Con Tab) 20 meq QAM PO 10/11/17 08:00 11/10/17 07:59 10/17/17 08:12 20 MEQ Ranitidine HCl (zANTac TAB) 150 mg BID PO 10/10/17 20:00 11/09/17 19:59 10/17/17 08:11 150 MG Sertraline HCl (Zoloft Tab) 100 mg HS PO 10/10/17 21:00 11/09/17 20:59 10/16/17 20:54 100 MG Montelukast Sodium (Singulair Tab) 10 mg DAILY PO 10/11/17 08:00 11/10/17 07:59 10/17/17 08:13 10 MG Cholecalciferol (Vitamin D Tab) 2,000 inter.unit QAM PO 10/11/17 08:00 11/10/17 07:59 10/17/17 08:14 2,000 INTER.UNIT Levalbuterol (Xopenex 0.63 Mg/ 3 Ml Neb) 0.63 mg Q4 INH 10/10/17 16:00 11/09/17 15:59 10/17/17 11:13 0.63 MG Levalbuterol (Xopenex 0.63 Mg/ 3 Ml Neb) 0.63 mg Q2H PRN INH 10/10/17 15:30 11/09/17 15:29 10/11/17 07:37 0.63 MG Nystatin (Mycostatin Susp) 5 ml QID PO 10/10/17 21:30 10/20/17 21:29 10/17/17 08:15 5 ML Tramadol HCl (Ultram Tab) 50 mg Q8H PRN PO 10/10/17 21:30 11/09/17 21:29 10/17/17 08:16 50 MG Benzonatate (Tessalon Perles Cap) 100 mg TID PO 10/10/17 21:30 11/09/17 21:29 10/17/17 08:12 100 MG Hydrocodone Bit/ Homatropine Methylb (Hycodan Syrup) 5 ml HS PRN PO 10/10/17 21:30 10/24/17 21:29 10/16/17 20:51 5 ML Guaifenesin/ Dextromethorphan (Robitussin-Dm Syrup) 5 ml Q4H PRN PO 10/11/17 03:45 11/10/17 03:44 10/16/17 18:53 5 ML Docusate Sodium (coLACE CAP) 100 mg DAILY PO 10/12/17 08:00 11/11/17 07:59 10/17/17 08:14 100 MG Gabapentin (Neurontin Cap) 100 mg TID PO 10/12/17 14:00 9/16/18 13:59 10/17/17 08:13 100 MG Ascorbic Acid (Vitamin C Tab) 500 mg HS PO 10/12/17 21:00 11/10/17 07:59 10/16/17 20:54 500 MG Polyethylene (Miralax Powder Packet) 17 gm BID PRN PO 10/12/17 10:30 11/11/17 10:29 Tiotropium [place]/Olodaterol (Stiolto Respimat 2.5-2.5 Mcg/Act) 5 mcg DAILY INH 10/13/17 08:00 11/12/17 07:59 10/17/17 08:17 5 MCG Prednisone (PredniSONE TAB) 60 mg DAILY PO 10/16/17 08:00 11/15/17 07:59 10/17/17 08:13 60 MG Ondansetron HCl (Zofran Inj) 4 mg Q6H PRN IV 10/17/17 03:45 11/16/17 03:44 10/17/17 03:53 4 MG
[2017-10-17] MEDS ORDERED: FLUCONAZOLE 50 MG TAB PO ONE (11:45)
--- NOTE | 2017-10-17 15:41 | Palliative Care Progress Note ---
Palliative Care Progress Note Date of Service Oct 17, 2017. Subjective Pt evaluation today including: conversation w/ patient, physical exam, chart review Patient requested to speak with palliative care today about POLST form and her condition. Patient is awake, alert and oriented x4, in no distress sitting in bed. Discussed POLST form at length and talked about CODE STATUS. Patient had questions about being DNR and wanted to be sure that did not prevent her from certain treatment in the hospital. I gave her education on this matter and advised that DNR ONLY measure that in the extreme case that her heart stops or she stops breathing, that we would not perform chest compressions or place her on ventilator. She wants to remain DNR, but expressed her feelings of sadness about her COPD. Her plan is to go back home. Review of Systems Constitutional: No weakness ENT: No trouble swallowing Respiratory: + dyspnea on exertion, No shortness of breath Cardiac: No chest pain, No edema Abdomen: No pain, No nausea, No vomiting Female : No problem reported Psychiatric: No depression symptoms, No anxiety Objective Vital Signs Date Time Temp Pulse Resp B/P (MAP) Pulse Ox O2 Delivery O2 Flow Rate FiO2 10/17/17 15:07 97 16 97 Nasal Cannula 2.0 10/17/17 15:04 36.7 83 18 127/73 (91) 97 Nasal Cannula 2.0 10/17/17 11:14 84 16 96 Nasal Cannula 2.0 10/17/17 08:15 Nasal Cannula 2.0 10/17/17 07:09 36.5 80 16 146/83 (104) 100 2.0 10/17/17 06:55 82 16 98 Nasal Cannula 2.0 10/17/17 03:19 75 16 98 Nasal Cannula 2.0 10/17/17 00:21 98 Nasal Cannula 2.0 10/16/17 23:04 36.7 81 20 146/87 (106) 98 Nasal Cannula 8.0 Humidified Oxygen 10/16/17 22:48 77 16 98 Nasal Cannula 2.0 10/16/17 19:10 75 16 98 Nasal Cannula 2.0 10/16/17 16:00 98 Nasal Cannula 2.0 10/16/17 15:29 79 16 98 Nasal Cannula 2.0 Physical Exam General Appearance: no apparent distress ENT: hearing grossly normal Neck: supple, no JVD Respiratory/Chest: no respiratory distress, no accessory muscle use, + decreased breath sounds Cardiovascular: regular rate, rhythm, no edema, + normal peripheral pulses Abdomen: normal bowel sounds, non tender, soft Neurologic/Psychiatric: alert, normal mood/affect, oriented x 3 Skin: normal color Assessment and Plan Problem list: [place] COPD, advanced, home oxygen Advanced directives Goals of care Palliative care recs: -Patient will remain DNR per her wish. -Patient plans to have discussion with her children about her wishes and discuss the POLST form with them. -POLST form completed by GOGO Herron, on Sunday as follows: DNR, limited add'l interventions, limited abx with comfort as the goal, no artificial hydration/nutrition. -Patient is not ready, nor do I know if she qualifies, for hospice. -Goal is to get home with home health. Would be amenable to hospice in the future. -Continue current medical management. Total time spent 25 minutes with >50% of time spent at bedside with patient discussing CODE STATUS, POLST form, and goals of care. Palliative Performance Scale: 50 %
[2017-10-17] MEDS: ATORVASTATIN 10 MG TAB PO SCH (20:32)
[2017-10-17] MEDS: SERTRALINE HCL 100 MG TAB PO SCH (20:32)
[2017-10-17] MEDS: ASCORBIC ACID 500 MG TAB PO SCH (20:32)
[2017-10-17] MEDS: ENOXAPARIN 40 MG/0.4 ML SYR SQ SCH (20:33)
[2017-10-17] MEDS: HYDROCODONE/HOMATROPINE SYRUP 5MG/1.5MG 5ML UDP PO PRN (20:39)
[2017-10-18] VITALS (7 sets, daily range): BP systolic 119–147; BP diastolic 74–84; PULSE 75–93; TEMP 36.7–36.9; O2SAT 94–99
[2017-10-18] MEDS: LEVALBUTEROL 0.63MG/3 ML NEB INH SCH ×4 (03:11→15:25)
[2017-10-18] MEDS: ACETAMINOPHEN 325 MG TAB PO PRN (03:37)
[2017-10-18] MEDS: BUDESONIDE 0.5 MG/2 ML VIAL (PULMICORT) INH SCH (07:06)
[2017-10-18] MEDS: TIOTROPIUM BROMIDE-OLODATEROL 2.5-2.5MCG/ACT INH SCH (08:31)
[2017-10-18] MEDS: NYSTATIN SUSP 500,000 U/5 ML UDC PO SCH ×2 (08:32→12:45)
[2017-10-18] MEDS: LORAZEPAM 1 MG TAB PO PRN (08:32)
[2017-10-18] MEDS: TRAMADOL HCL 50 MG TAB PO PRN (08:32)
[2017-10-18] MEDS: GABAPENTIN 100 MG CAP PO SCH ×2 (08:33→14:08)
[2017-10-18] MEDS: POTASSIUM CHLORIDE 20 MEQ TABCR PO SCH (08:33)
[2017-10-18] MEDS: FERROUS SULFATE 325 MG TAB PO SCH (08:33)
[2017-10-18] MEDS: MONTELUKAST SOD 10 MG TAB PO SCH (08:37)
[2017-10-18] MEDS: CHOLECALCIFEROL 1000 INTER.UNIT TAB PO SCH (08:37)
[2017-10-18] MEDS: FUROSEMIDE 20 MG TAB PO SCH (08:37)
[2017-10-18] MEDS: DOCUSATE SODIUM 100 MG CAP PO SCH (08:37)
[2017-10-18] MEDS: RANITIDINE HCL 150 MG TAB PO SCH (08:38)
[2017-10-18] MEDS: PANTOprazole SOD 40 MG TAB PO SCH (08:38)
[2017-10-18] MEDS: BENZONATATE 100MG CAP PO SCH ×2 (08:38→14:08)
[2017-10-18] MEDS: ONDANSETRON INJ 2 MG/ML 2 ML VIAL IV PRN (13:55)
--- NOTE | 2017-10-18 14:03 | Progress Note ---
Medicine Progress Note Date & Time of Visit: Oct 18, 2017 at 13:58. Subjective seen resting in bed, comfortable states her breathing continues to improve GI upset also improved denies dysuria states she is ok for discharge today no other symptoms Objective Last 8 Hrs Date Time Temp Pulse Resp B/P (MAP) Pulse Ox O2 Delivery O2 Flow Rate FiO2 10/18/17 11:25 75 18 96 Nasal Cannula 2.0 10/18/17 09:00 99 Nasal Cannula 2.0 10/18/17 07:12 36.7 75 20 147/84 (105) 99 Nasal Cannula 3.0 10/18/17 07:06 76 18 99 Nasal Cannula 2.0 Physical Exam: General- oriented x 3, not in distress, speaks in sentences with no effort Eyes- anicteric ENT- oropharynx clear Neck- supple, no JVD Lungs- clear breath sounds bilaterally no rales/wheezing Heart- regular rhythm; no murmur, normal rate Abdomen- normal bowel sounds, soft, nontender Extremities- no pretibial edema, no calf tenderness; peripheral pulses intact Neuro- alert, oriented x 3; no gross focal deficits Skin- warm & dry Laboratory Results: Last 24 Hours Test 10/18/17 09:00 Urine Color YELLOW Urine Appearance CLEAR Urine pH 7.0 Urine Specific [place] 1.006 Urine Protein NEG Urine Glucose (UA) NEG Urine Ketones NEG Urine Occult Blood TRACE Urine Nitrite NEG Urine Bilirubin NEG Urine Urobilinogen NEG Urine Leukocyte Esterase TRACE Urine WBC (Auto) /hpf Urine RBC (Auto) /hpf Urine Hyaline Casts (Auto) /lpf Urine Epithelial Cells (Auto) /lpf Urine Bacteria (Auto) Urine RBC 0-4 /hpf Urine WBC 1-5 /hpf Urine Epithelial Cells 5-10 /lpf Urine Bacteria NEG Assessment & Plan EXACERBATION COPD No infiltrates on chest CT. IV steroids, bronchodilators. Pulmonary Medicine consulted. -- continue slow prednisone taper until 10mg po daily indefinitely, until re- evaluated by Pulmonary [facility] on 10/24/17 CHRONIC HYPOXIC RESPIRATORY FAILURE Secondary to COPD. On home O2 @ 2 LPM, at baseline DYSPEPSIA from Prednisone? improved continue Protonix, Ranitidine PULMONARY NODULE 8 mm nodule noted RML. Stable since 2015. F/U CT in 6 months recommended. HYPERTENSION Continue furosemide. GERD Continue ranitidine and pantoprazole. DEPRESSION Continue sertraline. LEUKOCYTOSIS WBC as high as 22,000. Leukocytosis probably secondary to steroid therapy. no signs of infection at this time monitor as outpatient VTE PROPHYLAXIS SQ enoxaparin. Ambulate. ADVANCED DIRECTIVES Patient requested assistance with Advanced Directives. Palliative Care consulted. POLST completed. Patient requested that code status be changed to DNR. DISPOSITION Expected discharge to home. Internal Medicine follow-up with Dr. Clemons. 10/24/17 1245pm Pulmonary Medicine follow-up with Bubba Paez PA-C. 10/24/17n 845am Current Inpatient Medications: Current Inpatient Medications Medications (Trade) Dose Ordered Sig/Edis Route Start Time Stop Time Status Last Admin Dose Admin Enoxaparin Sodium (Lovenox Inj) 40 mg Q24H SQ 10/10/17 21:00 11/09/17 20:59 10/17/17 20:33 40 MG Acetaminophen (Tylenol Tab) 650 mg Q4H PRN PO 10/10/17 14:45 11/09/17 14:44 10/18/17 03:37 650 MG Atorvastatin Calcium (Lipitor Tab) 10 mg HS PO 10/10/17 21:00 11/09/17 20:59 10/17/17 20:32 10 MG Budesonide (Pulmicort Respules 0.5MG/ 2ML Neb Soln) 0.5 mg BIDR INH 10/10/17 20:00 11/09/17 19:59 10/18/17 07:06 0.5 MG Cholecalciferol (Vitamin D Tab) 1,000 inter.unit HS PO 10/10/17 21:00 11/09/17 20:59 10/17/17 20:32 1,000 INTER.UNIT Ferrous Sulfate (Feosol Tab) 325 mg BID PO 10/10/17 20:00 11/09/17 19:59 10/18/17 08:33 325 MG Furosemide (Lasix Tab) 20 mg QAM PO 10/11/17 08:00 11/10/17 07:59 10/18/17 08:37 20 MG Lorazepam (Ativan Tab) 1 mg TID PRN PO 10/10/17 15:00 11/09/17 14:59 10/18/17 08:32 1 MG Pantoprazole Sodium (Protonix Tab) 40 mg BID PO 8/15/18 20:00 11/09/17 19:59 10/18/17 08:38 40 MG Potassium Chloride (Klor-Con Tab) 20 meq QAM PO 10/11/17 08:00 11/10/17 07:59 10/18/17 08:33 20 MEQ Ranitidine HCl (zANTac TAB) 150 mg BID PO 10/10/17 20:00 11/09/17 19:59 10/18/17 08:38 150 MG Sertraline HCl (Zoloft Tab) 100 mg HS PO 10/10/17 21:00 11/09/17 20:59 10/17/17 20:32 100 MG Montelukast Sodium (Singulair Tab) 10 mg DAILY PO 10/11/17 08:00 11/10/17 07:59 10/18/17 08:37 10 MG Cholecalciferol (Vitamin D Tab) 2,000 inter.unit QAM PO 10/11/17 08:00 11/10/17 07:59 10/18/17 08:37 2,000 INTER.UNIT Levalbuterol (Xopenex 0.63 Mg/ 3 Ml Neb) 0.63 mg Q4 INH 10/10/17 16:00 11/09/17 15:59 10/18/17 11:24 0.63 MG Levalbuterol (Xopenex 0.63 Mg/ 3 Ml Neb) 0.63 mg Q2H PRN INH 10/10/17 15:30 11/09/17 15:29 10/11/17 07:37 0.63 MG Nystatin (Mycostatin Susp) 5 ml QID PO 10/10/17 21:30 10/20/17 21:29 10/18/17 12:45 5 ML Tramadol HCl (Ultram Tab) 50 mg Q8H PRN PO 10/10/17 21:30 11/09/17 21:29 10/18/17 08:32 50 MG Benzonatate (Tessalon Perles Cap) 100 mg TID PO 10/10/17 21:30 11/09/17 21:29 10/18/17 08:38 100 MG Hydrocodone Bit/ Homatropine Methylb (Hycodan Syrup) 5 ml HS PRN PO 10/10/17 21:30 10/24/17 21:29 10/17/17 20:39 5 ML Guaifenesin/ Dextromethorphan (Robitussin-Dm Syrup) 5 ml Q4H PRN PO 10/11/17 03:45 11/10/17 03:44 10/16/17 18:53 5 ML Docusate Sodium (coLACE CAP) 100 mg DAILY PO 10/12/17 08:00 11/11/17 07:59 10/18/17 08:37 100 MG Gabapentin (Neurontin Cap) 100 mg TID PO 10/12/17 14:00 11/11/17 13:59 10/18/17 08:33 100 MG Ascorbic Acid (Vitamin C Tab) 500 mg HS PO 10/12/17 21:00 11/10/17 07:59 10/17/17 20:32 500 MG Polyethylene (Miralax Powder Packet) 17 gm BID PRN PO 10/12/17 10:30 11/11/17 10:29 Tiotropium [place]/Olodaterol (Stiolto Respimat 2.5-2.5 Mcg/Act) 5 mcg DAILY INH 10/13/17 08:00 11/12/17 07:59 10/18/17 08:31 5 MCG Prednisone (PredniSONE TAB) 60 mg DAILY PO 10/16/17 08:00 11/15/17 07:59 10/18/17 08:38 60 MG Ondansetron HCl (Zofran Inj) 4 mg Q6H PRN IV 10/17/17 03:45 11/16/17 03:44 10/18/17 13:55 4 MG Al Hydroxide/Mg Hydroxide (Maalox Susp) 30 ml Q6H PRN PO 10/17/17 11:30 11/16/17 11:29
[2017-10-18] MEDS ORDERED: NRN100 PO (14:14)
[2017-10-18] MEDS ORDERED: VNTHFA/IN INH (14:14)
[2017-10-18] MEDS ORDERED: IPRA-64 INH (14:14)
[2017-10-18] MEDS ORDERED: BENZ100C7 PO (14:14)
[2017-10-18] MEDS ORDERED: PRD10 PO (14:15)
--- NOTE | 2017-10-18 14:22 | Discharge Instructions ---
Discharge Instructions Date of Service Oct 18, 2017. Admission Reason for Admission: Copd Exacerbation Discharge Discharge Diagnosis / Problem: COPD EXACERBATION Discharge Goals Goal(s): Diagnostic testing, Therapeutic intervention Activity Recommendations Activity Limitations: as noted below (NO HEAVY EXERTION UNTIL RE-EVALUATED BY PRIMARY CARE PHYSICIAN) Lifting Limitations: until after follow-up appointment Exercise/Sports Limitations: until after follow-up appointment Driving or Machine Use: NO DRIVING UNTIL RE-EVALUATED BY PRIMARY CARE PHYSICIAN. . Instructions / Follow-Up Instructions / Follow-Up PLEASE REVIEW YOUR NEW MEDICATION LIST AND FOLLOW INSTRUCTIONS CAREFULLY. DO NOT STOP TAKING PREDNISONE UNTIL ADVISED BY YOUR PRIMARY CARE PHYSICIAN OR LUNG SPECIALIST. CALL PRIMARY CARE PHYSICIAN OR RETURN TO ER IMMEDIATELY IF WITH RECURRENCE/ WORSENING OF SYMPTOMS. FOLLOW UP WITH DR. GOMEZ ON 10/24/17 AT 12:45PM. FOLLOW UP WITH FRANCES BARRON ON 10/24/17 AT 8:45AM. Current Hospital Diet Patient's current hospital diet: AHA Diet (Heart Healthy) Discharge Diet Recommended Diet: AHA Diet (Heart Healthy) Pending Studies Studies pending at discharge: no Medical Emergencies . Who to Call and When: Medical Emergencies: If at any time you feel your situation is an emergency, please call 911 immediately. . Non-Emergent Contact Non-Emergency issues call your: Primary Care Provider, Ticket Sales Agent (LUNG SPECIALIST) Call Non-Emergent contact if: you have a fever, you have any medication questions . . "Provider Documentation" section prepared by Bryan Davis. .
[2017-10-18] MEDS ORDERED: MICO4CRE EXT (14:25)
--- NOTE | 2017-10-18 14:25 | Discharge Summary ---
Discharge Summary Date of Service Oct 18, 2017. Discharge Summary Admission Date: Oct 10, 2017 at 14:05 Discharge Date: Oct 18, 2017 Principal Diagnosis: EXACERBATION COPD Secondary Diagnoses/Problems: Please refer to hospital course below. Procedures: CT ANGIOGRAPHY OF THE CHEST, PULMONARY EMBOLUS PROTOCOL CLINICAL HISTORY: Hypoxia. Intractable cough. COMPARISON STUDY: Chest CT May 17, 2017 and chest radiograph September 20, 2017. TECHNIQUE: Following IV administration of 114 mL of Optiray-320, helical axial images of the chest were obtained utilizing the pulmonary embolus protocol. Maximal intensity projections and sagittal and coronal reformats were viewed on an independent 3D workstation. IV contrast was administered without complication. A dose lowering technique was utilized adhering to the principles of ALARA. CT DOSE: 270.38 mGy.cm FINDINGS: No pulmonary emboli are identified. There is no evidence for thoracic aortic dissection. No enlarged axillary, mediastinal or hilar lymph nodes are present. There is no pneumomediastinum. Central airways are patent. Mild bronchial wall thickening is noted. There is no consolidation to suggest pneumonia. An 8 mm right middle lobe nodule shown on image 130 of [address] of January 22, 2016. This is likely benign. Bony thorax and upper abdomen are unremarkable. Gallbladder is surgically absent. IMPRESSION: 1. No pulmonary emboli identified. 2. No acute intrathoracic findings. 3. 8 mm right middle lobe nodule which is unchanged since CT of January 22, 2016. This is likely benign. A follow-up chest CT in 6 months to ensure stability is recommended. Electronically signed by: Roni Ragland M.D. 10/10/2017 7:13 PM Consultations: Pulmonary Pending Studies/Follow-Up: Please refer to hospital course below. Medication Reconciliation New Medications: Miconazole Nitrate Vaginal (Monistat 7 Simply Cure) 2 % Cre 1 BOX EXT UD, #1 BOX Prednisone (Prednisone) 10 Mg Tab 10 MG PO UD for 30 Days, #50 TABS 0 Refills take 5 tabs po daily x 2 days, then take 4 tabs po daily x 2 days, then take 3 tabs po daily x 2 days, then take 2 tabs po daily x 2 days, then take 1 tab po daily Benzonatate (Benzonatate) 100 Mg Cap 100 MG PO TID PRN for Cough for 7 Days, #20 CAP Gabapentin (Gabapentin) 100 Mg Cap 100 MG PO TID for 30 Days, #90 CAP 0 Refills Changed Medications: Ipratropium-Albuterol (Duoneb) 3 Ml Nebu 1 TREATMENT INH TID for 10 Days, INHA (Changed from: Q4H) may also use q4h as needed for shortness of breath/wheezing Continued Medications: Acetaminophen (Tylenol) 325 Mg Tab 650 MG PO QD PRN for Pain, TAB Albuterol Hfa (Ventolin Hfa) 200 Puffs/58563 Mcg Aers 2 PUFFS INH Q6H PRN for Shortness of Breath for 30 Days, #1 INHALER 2 Refills ( This prescription has been renewed) Alendronate Sodium (Fosamax) 70 Mg Tab 1 TAB PO WK for 28 Days, #4 TAB 3 Refills TAKES ON MON Ascorbic Acid (Vitamin C) 500 Mg Cap 500 MG PO HS Atorvastatin (Lipitor) 10 Mg Tab 10 MG PO HS Budesonide (Budesonide) 0.5 Mg/2 Ml Nebu 1 VIAL NEB BID for 30 Days, #120 ML 3 Refills Cholecalciferol (Vitamin D) 2,000 Unit Tab 2 TAB PO QAM Cholecalciferol (Vitamin D) 1,000 Unit Tab 1 TAB PO HS Ferrous Sulfate (Ferrous Sulfate) 325 Mg Tab 325 MG PO BID Furosemide (Furosemide) 20 Mg Tab 20 MG PO QAM Home O2 Therapy (Oxygen) Gas 2 LITERS NA CONT, BTL Lorazepam (Lorazepam) 1 Mg Tab 1 MG PO TID PRN for Anxiety Montelukast Sodium (Singulair) 10 Mg Tab 10 MG PO DAILY, TAB Ondansetron (Ondansetron HCl) 4 Mg Tab 4 MG PO Q6H PRN for Nausea or Vomiting Pantoprazole (Protonix) 40 Mg Tab 40 MG PO BID, #30 TAB Potassium Ext Rel (Klor-Con) 20 Meq Tabcr 20 MEQ PO QAM, TAB Ranitidine HCl (Ranitidine HCl) 150 Mg Tab 150 MG PO BID Roflumilast (Daliresp) 500 Mcg Tab 1 TAB PO QAM, TAB 5 Refills Sertraline (Zoloft) 100 Mg Tab 100 MG PO HS, TAB Tiotropium [place]-Olodaterol (Stiolto Respimat 2.5-2.5 Mcg/Act) 1 Aer Aer 2 PUFF INH QAM Tramadol (Ultram) 50 Mg Tab 50 MG PO Q8H PRN for Pain, TAB Discontinued Medications: Gentamicin Sulfate (Ophth) (Gentamicin 0.3% Oph) 0.3 % Fabi 2 SPRAYS NA BID Glycopyrrolate (Inhalation) (Lonhala Magnair Refill Ki) 25 Mcg/Ml Fabi 2 PUFFS INH BID Nystatin (Nystatin) 5 Ml Susp 5 ML PO QID for 7 Days, #1 BTL Admission Information HPI (per Admitting provider): This is a 67-year-old white female who has a significant past medical history of O2 dependent COPD, chronic hypoxic respiratory failure, HTN, HLD, osteoporosis, PUD, GERD H/O tobacco and alcohol abuse, chronic neck pain who presents to [facility] as direct admission from pulmonary clinic. Patient was recently admitted to [facility] 09/15 through 09/24/17 secondary to COPD exacerbation in which she was treated with IV steroids, nebs, antibiotic therapy. She was discharged on prednisone taper, oral antibiotic. She followed up closely in outpatient pulmonary clinic seen by ADRIAN Mac. Shortly after hospitalization was noted to have return of cough therefore placed on increased prednisone taper, azithromycin 250 mg 3 times per week, Jairo Bolivar. Unfortunately patient has been dealing with intractable chronic cough for over 2-3 years with frequent hospitalizations and COPD exacerbations. Per pulmonology a sinus source is a possibility, she is to undergo sinus surgery next month if COPD exacerbation resolved. When seen in outpatient pulmonary clinic today was noted to be slightly hypoxic, increased intractable cough with tachycardia and was recommended to be admitted for IV methylprednisolone treatment, pulmonary toilet as well as CT scan of chest to rule out PE. Patient with pulmonary closely which she had multiple bronchoscopies in the past which was mostly unrevealing in regards to her chronic intractable cough. She complains dry cough is constant, worse in a.m. and p.m. Nothing makes cough better, nothing makes cough worse. Has tried numerous wkqe-ojc-piinzal cough suppressants, Tessalon Perles, Cheratussin without significant relief. Further complains of ACOSTA, sweats, occasional vertigo sensation, chest tightness with coughing. Denies fever, chills, pre syncope, sneezing, rhinorrhea, n/v/d, abdominal pain hemoptysis, sob at rest. Appetite is normal. She is being admitted for IV methylprednisolone and further pulmonary treatment of COPD exac. Physical Exam (per Admitting): General Appearance: WD/WN, no apparent distress (sitting at bedside on O2 via NC, speaking easily) Head: normocephalic, atraumatic Eyes: normal inspection, sclerae normal ENT: normal ENT inspection, hearing grossly normal, + pertinent finding ( Mucous membranes moist) Neck: supple, no adenopathy, thyroid normal, no JVD Respiratory/Chest: chest non-tender, lungs clear, no respiratory distress, no accessory muscle use, + decreased breath sounds, + wheezing (mild exp wheezing at bases), + pertinent finding (on O2 via NC 2 L ) Cardiovascular: regular rate, rhythm, no edema, no gallop, no JVD, no murmur , + tachycardia Abdomen/GI: normal bowel sounds, non tender, soft, no organomegaly Back: normal inspection, no muscle spasm, normal range of motion Extremities/Musculoskelatal: normal inspection, no calf tenderness, no pedal edema Neurologic/Psych: alert, oriented x 3, + depressed affect Skin: normal color, warm/dry Hospital Course EXACERBATION COPD No infiltrates on chest CT. given IV steroids, bronchodilators. Pulmonary Medicine consulted Dr. Bai -- improved gradually transitioned to Prednisone taper started on Gabapentin 100mg TID for cough -- continue slow prednisone taper until 10mg po daily indefinitely, until re- evaluated by Pulmonary [facility] on 10/24/17 CHRONIC HYPOXIC RESPIRATORY FAILURE Secondary to COPD. On home O2 @ 2 LPM, back to baseline DYSPEPSIA from Prednisone? improved continue Protonix, Ranitidine PULMONARY NODULE 8 mm nodule noted RML. Stable since 2016. F/U CT in 6 months recommended. HYPERTENSION Continue furosemide. GERD Continue ranitidine and pantoprazole. DEPRESSION Continue sertraline. LEUKOCYTOSIS WBC as high as 22,000. Leukocytosis probably secondary to steroid therapy. no signs of infection at this time monitor as outpatient MICROSCOPIC HEMATURIA UA trace urine occult blood repeat UA as outpatient ADVANCED DIRECTIVES Patient requested assistance with Advanced Directives. Palliative Care consulted. POLST completed. Patient requested that code status be changed to DNR. DISPOSITION d/c home Internal Medicine follow-up with Dr. Gomez. 10/24/17 1245pm Pulmonary Medicine follow-up with Bubba Paez PA-C. 10/24/17n 845am Total time spent on discharge = 30 mins This includes examination of the patient, discharge planning, medication reconciliation, and communication with other providers. Discharge Instructions Discharge Instructions Date of Service Oct 18, 2017. Admission Reason for Admission: Copd Exacerbation Discharge Discharge Diagnosis / Problem: COPD EXACERBATION Discharge Goals Goal(s): Diagnostic testing, Therapeutic intervention Activity Recommendations Activity Limitations: as noted below (NO HEAVY EXERTION UNTIL RE-EVALUATED BY PRIMARY CARE PHYSICIAN) Lifting Limitations: until after follow-up appointment Exercise/Sports Limitations: until after follow-up appointment Driving or Machine Use: NO DRIVING UNTIL RE-EVALUATED BY PRIMARY CARE PHYSICIAN. . Instructions / Follow-Up Instructions / Follow-Up PLEASE REVIEW YOUR NEW MEDICATION LIST AND FOLLOW INSTRUCTIONS CAREFULLY. DO NOT STOP TAKING PREDNISONE UNTIL ADVISED BY YOUR PRIMARY CARE PHYSICIAN OR LUNG SPECIALIST. CALL PRIMARY CARE PHYSICIAN OR RETURN TO ER IMMEDIATELY IF WITH RECURRENCE/ WORSENING OF SYMPTOMS. FOLLOW UP WITH DR. GOMEZ ON 10/24/17 AT 12:45PM. FOLLOW UP WITH FRANCES PAEZ ON 10/24/17 AT 8:45AM. Current Hospital Diet Patient's current hospital diet: AHA Diet (Heart Healthy) Discharge Diet Recommended Diet: AHA Diet (Heart Healthy) Pending Studies Studies pending at discharge: no Medical Emergencies . Who to Call and When: Medical Emergencies: If at any time you feel your situation is an emergency, please call 911 immediately. . Non-Emergent Contact Non-Emergency issues call your: Primary Care Provider, Product Analyst (LUNG SPECIALIST) Call Non-Emergent contact if: you have a fever, you have any medication questions . . "Provider Documentation" section prepared by Bryan Davis. . <Electronically signed by Bryan Davis MD> Signed: 10/18/17 1422 Signed: The status of this report is Signed * If report status is Draft, the document has not been finalized by the responsible provider.
== END 2017-10-18 16:00 | disposition home health service (06) | DRG 191 ==
LOC: C.4E 14:05
PROVIDERS: ADMIT Internal Medicine; ATTEND Internal Medicine
DX: J44.1 Chronic obstructive pulmonary disease with (acute) exacerbation (principal); J96.11 Chronic respiratory failure with hypoxia; F10.21 Alcohol dependence, in remission; K21.9 Gastro-esophageal reflux disease without esophagitis; Z98.1 Arthrodesis status; R73.9 Hyperglycemia, unspecified; F41.1 Generalized anxiety disorder; Z99.81 Dependence on supplemental oxygen; I10 Essential (primary) hypertension; R10.13 Epigastric pain; T38.0X5A Adverse effect of glucocorticoids and synthetic analogues, initial encounter; Y92.009 Unspecified place in unspecified non-institutional (private) residence as the place of occurrence of the external cause; R91.1 Solitary pulmonary nodule; F32.9 Major depressive disorder, single episode, unspecified; R31.29 Other microscopic hematuria; E78.5 Hyperlipidemia, unspecified; K58.9 Irritable bowel syndrome, unspecified; J32.9 Chronic sinusitis, unspecified

== ENCOUNTER 2018-04-12 19:29 | Inpatient (IN) ==
[2018-04-12] MEDS ORDERED: HYDROCODONE/HOMATROPINE SYRUP 5MG/1.5MG 5ML UDP PO STA (20:27)
[2018-04-12] MEDS ORDERED: methylPREDNISolone 125 MG/2 ML VIAL IV STA (20:27)
[2018-04-12] MEDS ORDERED: ALBUT/IPRATROP 3MG/0.5MG NEB 3 ML VIAL INH STA (20:27)
--- NOTE | 2018-04-12 20:45 | XRay Report ---
XR chest 1V portable CLINICAL HISTORY: Shortness of breath COMPARISON STUDY: 02/15/2018 FINDINGS: The heart is mildly enlarged. There is no failure. There is no lobar consolidation. There a re no pleural effusions.[ IMPRESSION: No active disease in the chest. Electronically signed by: Rosas Briggs M.D. 04/12/2018 8:44 PM
[2018-04-12 20:51] LABS: Hematocrit (blood only) 36.6 % (37-47); Hemoglobin 11.7 g/dL (12.0-16.0); Immature Granulocytes # (auto) 0.13 K/uL (0.00-0.02); Immature Granulocytes % (auto) 0.8 %; Lymphocytes # (auto) 0.67 K/uL (1.2-3.4); Lymphocytes % (auto) 4.1 %; Mean Corpuscular Volume 87.8 fL (80-100); Mean Platelet Volume 9.4 fL (7.4-10.4); Monocytes # (auto) 0.51 K/uL (0.11-0.59); Monocytes % (auto) 3.1 %; Neutrophils # (auto) 14.98 K/uL (1.4-6.5); Platelet Count 343 K/uL (130-400); Red Blood Count 4.17 M/uL (4.2-5.4); White Blood Count 16.29 K/uL (4.8-10.8)
[2018-04-12 20:55] LABS: INR 0.9 (0.9-1.1); Partial Thromboplastin Ratio 0.9; Partial Thromboplastin Time 24.3 Seconds (21.0-31.0); Prothrombin Time 9.6 Seconds (9.0-12.0)
[2018-04-12] MEDS ORDERED: ALBUT/IPRATROP 3MG/0.5MG NEB 3 ML VIAL NEB ONE (21:21)
[2018-04-12 21:39] LABS: Alanine Aminotransferase 21 U/L (12-78); Albumin Level 3.4 gm/dl (3.4-5.0); Aspartate Aminotransferase 11 U/L (15-37); BUN Creatinine Ratio 15.2 (10-20); Blood Urea Nitrogen 15 mg/dl (7-18); Calcium 8.6 mg/dl (8.5-10.1); Carbon Dioxide 31 mmol/L (21-32); Chloride 104 mmol/L (98-107); Creatinine Clr Calc Pharmacy 59.5 ml/min; Est GFR (African American) 66.6; Est GFR (Non-African American) 57.4; Glucose 135 mg/dl (70-99); Potassium 3.5 mmol/L (3.5-5.1); Sodium 141 mmol/L (136-145)
[2018-04-12 21:43] LABS: Alkaline Phosphatase 87 U/L (45-117); Bilirubin,Total 0.3 mg/dl (0.2-1); Globulin 3.3 gm/dl (2.5-4.0); Total Protein 6.7 gm/dl (6.4-8.2); Troponin I < 0.015 ng/ml (0-0.045)
[2018-04-12] MEDS ORDERED: POTASSIUM CHLORIDE 20 MEQ TABCR PO STA (23:57)
--- NOTE | 2018-04-13 00:28 | History & Physical Report ---
Date of Service April 13, 2018 Assessment & Plan (1) Respiratory failure, acute and chronic: Secondary to COPD exacerbation Rule out PE as precipitant with chest pain complaints Hyperglycemia rule out DM past tobacco/alcohol abuse ELÍAS as per records GERD, stable as per patient. Chronic anemia, baseline hemoglobin of 10. Medical telemetry Supplemental O2 Baseline ABG CT chest PE study RE chest pain, shortness of breath Nebs, prednisone course Pulmonary consult RE COPD exacerbation Check hemoglobin A1c, ISS BG goal 140-180 DVT prophylaxis. Lovenox subcu Full code History of Present Illness Chief Complaint: Shortness of breath Primary Care Provider: [place] MD History obtained from patient and records. Medical history is significant for chronic respiratory failure secondary to COPD on home O2, past tobacco/alcohol abuse, hyperlipidemia, IBS per his records, ELÍAS as per records, GERD. chronic anemia (baseline hemoglobin of 10) Recent confinement January 2018 for COPD exacerbation. Last few weeks patient feeling more short of breath with dry cough symptoms. Intermittent sharp stabbing substernal pain. Denies aspiration. Admits to some chills. Worsening symptoms the last day. Flu-like symptoms noted as well At the ER, patient received Solu-Medrol and breathing treatments for COPD exacerbation. Allergies Allergy/AdvReac Type Severity Reaction Status Date / Time No Known Allergies Allergy Verified 04/12/18 20:53 Home Medications Home Medications Medication Instructions Recorded Confirmed Type atorvastatin 10 mg PO HS #0 10/21/15 03/21/18 History furosemide [Lasix] 20 mg PO QAM #0 10/21/15 03/21/18 History lorazepam See Label Instructions .ROUTE 10/21/15 03/21/18 History .COMPLEX #0 ranitidine HCl [Zantac] 150 mg PO Q12 #0 10/21/15 03/21/18 History potassium chloride 20 meq PO QAM #0 tab 12/26/15 03/21/18 History ascorbic acid (vitamin C) [Vitamin 500 mg PO DAILY #0 03/12/17 03/21/18 History C] ondansetron HCl [Zofran] 4 mg PO QID PRN #0 09/06/17 03/21/18 History budesonide 1 vial NEB BID PRN 30 Days #120 ml 10/10/17 03/21/18 History montelukast 10 mg PO DAILY #0 tab 10/10/17 03/21/18 History albuterol sulfate [Ventolin HFA] 2 puff INHALATION Q6H PRN 10/17/17 03/21/18 History nystatin 5 ml PO TID 10/17/17 03/21/18 History cholecalciferol (vitamin D3) 1,000 unit PO QPM 12/07/17 03/21/18 History [Vitamin D3] cholecalciferol (vitamin D3) 2,000 unit PO QAM 12/07/17 03/21/18 History [Vitamin D3] ipratropium-albuterol 3 ml INHALATION QID PRN 12/07/17 03/21/18 History ferrous sulfate See Label Instructions .ROUTE 02/15/18 03/21/18 History .COMPLEX tramadol 50 mg PO Q6H PRN 02/15/18 03/21/18 History benzonatate [Tessalon Perles] 100 mg PO BID PRN 03/21/18 03/21/18 History hdrhbsdlocezaz-ecnjgavhihvd-IX 20 ml PO BID 03/21/18 03/21/18 History [Dimetapp DM Cold-Cough (PE)] docusate sodium [Dulcolax Stool See Label Instructions .ROUTE 03/21/18 03/21/18 History Softener (dss)] .COMPLEX xdiypcbcnwz-zvumauheg-snsizngf 1 inh INHALATION DAILY 03/21/18 03/21/18 History [Trelegy Ellipta] methylprednisolone [Medrol] 3 tab PO QAM 03/21/18 03/21/18 History phenylephrine HCl [Sudafed PE] 10 mg PO BID 03/21/18 03/21/18 History sertraline [Zoloft] 150 mg PO HS 03/21/18 03/21/18 History pantoprazole 40 mg PO BID 04/12/18 04/12/18 History Past Med/Surg History Social History Current Living Situation: Family Current Living Situation Comment: Son, amvtbxte-xo-big, grandkids current occupational status: retired 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 Other Information That Helps Us Care for You: No Feels Safe at Home: Yes Safety Concerns: Feels Safe At This Time Smoking Status: Former smoker Tobacco Type: cigarettes Smoking End Date: 4-5 years ago Hx Alcohol Use: No Hx Substance Use: No Beliefs That Will Affect Care: None Preferred Language: Sinhala Communication Ability: Effective Strap Buckler Machine Required: No Review of Systems As per HPI, all 10 systems reviewed, all other ROS negative Physical Exam 2 Vital Signs (Past 24 Hours): Last Vital Signs Temp 37.3 C 04/12/18 19:50 Pulse 104 H 04/12/18 22:04 Resp 19 04/12/18 22:04 BP 140/70 04/12/18 22:04 Pulse Ox 97 04/12/18 22:04 Physical Exam: GENERAL: Comfortable, slightly anxious, no respiratory distress SKIN: Pallor , warm HEENT: Bespectacled, pale palpebral conjunctivae, no ptosis, dry buccal mucosa NECK : Supple, short, no tenderness CHEST : Decreased breath sounds, no tenderness HEART : Tachycardic, no obvious murmurs ABDOMEN: Some distention, nontender EXTREMITIES : No LE swelling/tenderness, no other conspicuous deformities noted NEUROLOGIC : Coherent, no facial asymmetry, no other gross focality Results & Data Laboratory Results Laboratory Results WBC 16.29 K/uL (4.8-10.8) H 04/12/18 19:10 RBC 4.17 M/uL (4.2-5.4) L 04/12/18 19:10 Hgb 11.7 g/dL (12.0-16.0) L 04/12/18 19:10 Hct 36.6 % (37-47) L 04/12/18 19:10 MCV 87.8 fL (80-100) 04/12/18 19:10 MCH 28.1 pg (25-34) 04/12/18 19:10 MCHC 32.0 g/dL (32-36) 04/12/18 19:10 RDW Std Deviation 48.0 fL (36.4-46.3) H 04/12/18 19:10 RDW Coeff of Cindy 15.0 % (11.5-14.5) H 04/12/18 19:10 Plt Count 343 K/uL (130-400) 04/12/18 19:10 MPV 9.4 fL (7.4-10.4) 04/12/18 19:10 Immature Gran % (Auto) 0.8 % 04/12/18 19:10 Neut % (Auto) 92.0 % 04/12/18 19:10 Lymph % (Auto) 4.1 % 04/12/18 19:10 Ross % (Auto) 3.1 % 04/12/18 19:10 Eos % (Auto) 0.0 % 04/12/18 19:10 Baso % (Auto) 0.0 % 04/12/18 19:10 Immature Gran # (Auto) 0.13 K/uL (0.00-0.02) H 04/12/18 19:10 Neut # (Auto) 14.98 K/uL (1.4-6.5) H 04/12/18 19:10 Lymph # (Auto) 0.67 K/uL (1.2-3.4) L 04/12/18 19:10 Ross # (Auto) 0.51 K/uL (0.11-0.59) 04/12/18 19:10 Eos # (Auto) 0.00 K/uL (0-0.5) 04/12/18 19:10 Baso # (Auto) 0.00 K/uL (0-0.2) 04/12/18 19:10 PT 9.6 Seconds (9.0-12.0) 04/12/18 19:10 INR 0.9 (0.9-1.1) 04/12/18 19:10 APTT 24.3 Seconds (21.0-31.0) 04/12/18 19:10 PTT Ratio 0.9 04/12/18 19:10 Sodium 141 mmol/L (136-145) 04/12/18 20:55 Potassium 3.5 mmol/L (3.5-5.1) 04/12/18 20:55 Chloride 104 mmol/L (98-107) 04/12/18 20:55 Carbon Dioxide 31 mmol/L (21-32) 04/12/18 20:55 Anion Gap 6.0 (3-11) 04/12/18 20:55 BUN 15 mg/dl (7-18) 04/12/18 20:55 Creatinine 1.00 mg/dl (0.6-1.2) 04/12/18 20:55 Est Cr Clr Drug Dosing 59.5 ml/min 04/12/18 20:55 Est GFR ( Amer) 66.6 04/12/18 20:55 Est GFR (Non-Af Amer) 57.4 04/12/18 20:55 BUN/Creatinine Ratio 15.2 (10-20) 04/12/18 20:55 Glucose 135 mg/dl (70-99) H 04/12/18 20:55 Calcium 8.6 mg/dl (8.5-10.1) 04/12/18 20:55 Total Bilirubin 0.3 mg/dl (0.2-1) 04/12/18 20:55 AST 11 U/L (15-37) L 04/12/18 20:55 ALT 21 U/L (12-78) 04/12/18 20:55 Alkaline Phosphatase 87 U/L (45-117) 04/12/18 20:55 Troponin I < 0.015 ng/ml (0-0.045) 04/12/18 20:55 Total Protein 6.7 gm/dl (6.4-8.2) 04/12/18 20:55 Albumin 3.4 gm/dl (3.4-5.0) 04/12/18 20:55 Globulin 3.3 gm/dl (2.5-4.0) 04/12/18 20:55 Albumin/Globulin Ratio 1.0 (0.9-2) 04/12/18 20:55 Influenza Type A Ag Neg for Influ A (Neg) 04/12/18 21:04 Influenza Type B Ag Neg for Influ B (Neg) 04/12/18 21:04 Diagnostic Findings Chest x-ray showed no active disease EKG as per my interpretation : Rate 95, NSR, incomplete RBBB, PVCs
[2018-04-13 00:43] LABS: Magnesium 2.1 mg/dl (1.8-2.4)
[2018-04-13 01:04] LABS: HCO3 ABG 28 mmol/L (19-24); Oxygen Saturation ABG 97.6 % (90-95); PCO2 ABG 46 mmHg (35-46); PO2 ABG 100 mm/Hg (80-95)
[2018-04-13 01:05] LABS: Allen Test POS (Pos)
[2018-04-13] MEDS ORDERED: ACETAMINOPHEN 325 MG TAB PO STA (01:09)
[2018-04-13] MEDS ORDERED: TRAMADOL HCL 50 MG TABLET PO STA (01:09)
[2018-04-13] MEDS ORDERED: LACTATED RINGER'S 1,000 ML IV ONE ×2 (01:17→03:45)
[2018-04-13 01:27] LABS: Appearance Urine Clear (Clear); Bacteria Urine Automated Negative (Negative); Bilirubin Urine Negative (Negative); Blood Urine 2+ (Negative); Color Urine Yellow; Glucose Urine UA Negative (Negative); Ketones Urine Negative (Negative); Leukocyte Esterase Urine Negative (Negative); Nitrite Urine Negative (Negative); Protein Urine Negative (Negative); RBC Urine Automated >30 /hpf (0-4); Specific Gravity Urine 1.017 (1.000-1.030); Urobilinogen Urine Negative (Negative)
[2018-04-13 02:28] LABS: Influenza A virus by PCR Neg for Influ A (Neg); Influenza B virus by PCR Neg for Influ B (Neg)
[2018-04-13] MEDS ORDERED: GLUCOSE 10 TABS/TUBE PO PRN (02:29)
[2018-04-13] MEDS ORDERED: GLUCOSE 40% GEL 15 GM TUBE PO PRN (02:29)
[2018-04-13] MEDS ORDERED: XOPENEX/ATROVENT 1.25mg/0.5MG NEB COMBO NEB SCH (02:29)
[2018-04-13] MEDS ORDERED: CARBOHYDRATES FOR HYPOGLYCEMIA PO PRN (02:29)
[2018-04-13] MEDS ORDERED: PROCHLORPERAZINE 5 MG in SYRINGE 4 ML IV PRN (02:29)
[2018-04-13] MEDS ORDERED: GLUCAGON FOR INJ 1 MG VIAL SQ PRN (02:29)
[2018-04-13] MEDS ORDERED: DEXTROSE 50% 50 ML SYRINGE IV PRN (02:29)
--- NOTE | 2018-04-13 02:35 | Emergency Department Note ---
Entered by Sandeep Limon acting as a scribe for ED Provider Note CHIEF COMPLAINT: Shortness of breath HISTORY OF PRESENT ILLNESS: The patient is a 68 year old female that presents to the ED with complaints of worsening shortness of breath that started over the last couple of days. She states she has been feeling ill for the past 2 weeks with a bad cough, chest pains, and shortness of breath, but it was the trouble breathing that brought her in today. She also notes she has had a slight fever, diarrhea, and has been diaphoretic. She was brought here via EMS, where she received a breathing treatment but she states it did not help. Cough syrup with codeine also did not help. She has a history of COPD so she also uses these at home along with 2L of oxygen. Two weeks ago she had an Xray of her chest done that showed it was clear , however today after being off of her oxygen for 3-5 minutes, her pulse Ox dropped to 64. She has not been around anyone sick lately and did receive the flu vaccine this season. She is a former smoker that quit about 4 years ago. Pt denies LOC, headache, chills, visual changes, neck pain, nausea, vomiting, abdominal pain, back pain, melena, hematochezia, urinary symptoms, numbness, weakness, lymphadenopathy, rash, or other complaints. REVIEW OF SYSTEMS: See HPI for pertinent positives and negatives. A total of ten systems were reviewed and were otherwise negative. PMHx/PSHx: Pneumonia, bronchitis, COPD, IBS, HLD, GERD, aortic aneurysm, anxiety, depression, cancer, sleep apnea, osteoporosis, sinus surgery, tonsillectomy, appendectomy, cholecystectomy SOCIAL HISTORY: Patient lives at home. PHYSICAL EXAM: GENERAL: Awake, alert, dyspneic-appearing, in no distress HENT: Normocephalic, atraumatic. Oropharynx unremarkable. EYES: Normal conjunctiva. Sclera non-icteric. NECK: Inspection normal. Non-tender. Supple. No nuchal rigidity. FROM. No masses. RESPIRATORY: Inspiratory and expiratory wheezes bilaterally. No rales. Increased respiratory effort. CARDIAC: Tachycardic rate. Normal rhythm. No murmurs. No rubs. Extremities warm and well perfused. Pulses equal. No JVD. GI: Soft, non-distended. No tenderness to palpation. No rebound or guarding. No masses. RECTAL: Deferred. MUSCULOSKELETAL: Atraumatic. Chest examination reveals no tenderness. The back is symmetrical on inspection without obvious abnormality. There is no CVA tenderness to palpation. No joint edema. LOWER EXTREMITIES: Calves are equal size bilaterally and non-tender. No edema. No discoloration. NEURO: Normal sensorium. No sensory or motor deficits noted. SKIN: No rash or jaundice noted. EMERGENCY DEPARTMENT COURSE: 2025: Past medical records reviewed. The patient was evaluated in room C08, and a complete history and physical examination were performed. 2345: I reevaluated the patient and she is still wheezing after an hour long treatment. Dr. Joseph was paged. 2350: I spoke to Dr. Joseph - [facility] Hospitalist about the patient's case and he is going to accept her for further evaluation. MEDICAL DECISION MAKING: Prior records/ancillary studies reviewed. Triage Nursing notes reviewed and agree them. Additional history obtained from the family. The patient's history was concerning for shortness of breath. Differential diagnosis: Etiologies such as pneumonia, COPD, reactive airway disease, CHF, cardiac ischemia, pulmonary embolism, pneumothorax, musculoskeletal, infections, gastrointestinal, as well as others were entertained. Physical examination: As above. Significant wheezing. Significant cough. Increased work of breathing. ER treatment provided: Continuous cardiac monitoring DuoNeb Solu-Medrol Hycodan Patient was still wheezing. The patient was given hour-long DuoNeb On reassessment the patient felt no better.. Diagnostic interpretation by me: The electrocardiogram was negative for pathologic change. The labs revealed mild leukocytosis on CBC. Consistent with prior values. The patient has an unremarkable chemistry panel. Troponin negative. Imaging studies: Chest x-ray negative for emergent pathology. I suspect the patient has a significant COPD exacerbation. She was treated with multiple nebulizer treatments as above. She received IV steroids. She is still wheezing. Consultation: A consultation was placed with the hospitalist. The case was discussed and diagnostics were reviewed. The patient was evaluated in the ER for further treatment. IMPRESSION: COPD exacerbation and Shortness of breath PLAN: Being evaluated by Hospitalist The scribe's documentation has been prepared under my direction and personally reviewed by me in its entirety. I confirm that the note above accurately reflects all work, treatment, procedures, and medical decision making performed by me. Impression & Plan COPD exacerbation, Shortness of breath Past Med/Surg History Social History Current Living Situation: Family Feels Safe at Home: Yes Smoking Status: Former smoker Second Hand Exposure: No Hx Alcohol Use: No Hx Substance Use: No Beliefs That Will Affect Care: None Preferred Language: Greenlandic Communication Ability: Effective Results & Data Vital Signs Vital Signs - 24 hr 04/12/18 19:50 04/12/18 19:56 04/12/18 21:37 Temperature 37.3 C Temperature Source Oral Sepsis Recent Fever Within 48 Hours No Sepsis Action Taken by Nursing No Action Required Pulse Rate 91 H Pulse Rate [Apical] 98 H Respiratory Rate 28 H 18 Respiratory Effort / Characteristics Short of Breath Non-Labored Spontaneous Respiratory Depth Shallow Respiratory Pattern Tachypnea Blood Pressure 128/74 Blood Pressure [Right Arm] Blood Pressure Mean 92 Blood Pressure Mean [Right Arm] Pulse Oximetry 96 96 95 Oxygen Delivery Method Nasal Cannula Nasal Cannula Nasal Cannula Oxygen Flow Rate 3 2 04/12/18 22:04 04/12/18 23:01 04/12/18 23:31 Temperature Temperature Source Sepsis Recent Fever Within 48 Hours Sepsis Action Taken by Nursing Pulse Rate 117 H 123 H Pulse Rate [Apical] 104 H Respiratory Rate 19 18 22 Respiratory Effort / Characteristics Non-Labored Respiratory Depth Normal Respiratory Pattern Blood Pressure 146/82 H 149/96 H Blood Pressure [Right Arm] 140/70 Blood Pressure Mean 103 113 Blood Pressure Mean [Right Arm] 93 Pulse Oximetry 97 96 95 Oxygen Delivery Method Nebulizer Oxygen Flow Rate 04/13/18 00:01 04/13/18 00:31 04/13/18 01:00 Temperature Temperature Source Sepsis Recent Fever Within 48 Hours Sepsis Action Taken by Nursing Pulse Rate 111 H 112 H 113 H Pulse Rate [Apical] Respiratory Rate 19 23 29 H Respiratory Effort / Characteristics Respiratory Depth Respiratory Pattern Blood Pressure 140/76 137/90 Blood Pressure [Right Arm] Blood Pressure Mean 97 105 Blood Pressure Mean [Right Arm] Pulse Oximetry 94 95 Oxygen Delivery Method Oxygen Flow Rate 04/13/18 01:01 Temperature Temperature Source Sepsis Recent Fever Within 48 Hours Sepsis Action Taken by Nursing Pulse Rate 105 H Pulse Rate [Apical] Respiratory Rate 24 Respiratory Effort / Characteristics Respiratory Depth Respiratory Pattern Blood Pressure 128/103 H Blood Pressure [Right Arm] Blood Pressure Mean 111 Blood Pressure Mean [Right Arm] Pulse Oximetry 95 Oxygen Delivery Method Oxygen Flow Rate Home Medications Current Medication List: was personally reviewed by me Laboratory Data Attestation: I reviewed the patient's lab results. Result diagrams: 04/12/18 19:10 04/12/18 20:55 Lab Results 04/12/18 04/12/18 04/12/18 Range/Units 19:10 19:10 19:10 WBC 16.29 H (4.8-10.8) K/uL RBC 4.17 L (4.2-5.4) M/uL Hgb 11.7 L (12.0-16.0) g/dL Hct 36.6 L (37-47) % MCV 87.8 (80-100) fL MCH 28.1 (25-34) pg MCHC 32.0 (32-36) g/dL RDW Std Deviation 48.0 H (36.4-46.3) fL RDW Coeff of Cindy 15.0 H (11.5-14.5) % Plt Count 343 (130-400) K/uL MPV 9.4 (7.4-10.4) fL Immature Gran % (Auto) 0.8 % Neut % (Auto) 92.0 % Lymph % (Auto) 4.1 % Webb % (Auto) 3.1 % Eos % (Auto) 0.0 % Baso % (Auto) 0.0 % Immature Gran # (Auto) 0.13 H (0.00-0.02) K/uL Neut # (Auto) 14.98 H (1.4-6.5) K/uL Lymph # (Auto) 0.67 L (1.2-3.4) K/uL Webb # (Auto) 0.51 (0.11-0.59) K/uL Eos # (Auto) 0.00 (0-0.5) K/uL Baso # (Auto) 0.00 (0-0.2) K/uL PT 9.6 (9.0-12.0) Seconds INR 0.9 (0.9-1.1) APTT 24.3 (21.0-31.0) Seconds PTT Ratio 0.9 ABG pH (7.35-7.45) ABG pCO2 (35-46) mmHg ABG pO2 (80-95) mm/Hg ABG HCO3 (19-24) mmol/L ABG O2 Saturation (90-95) % ABG Base Excess (-9-1.8) mEq/L Ayo Test (Pos) Oxygen Given Sodium (136-145) mmol/L Potassium (3.5-5.1) mmol/L Chloride (98-107) mmol/L Carbon Dioxide (21-32) mmol/L Anion Gap (3-11) BUN (7-18) mg/dl Creatinine (0.6-1.2) mg/dl Est Cr Clr Drug Dosing ml/min Est GFR ( Amer) Est GFR (Non-Af Amer) BUN/Creatinine Ratio (10-20) Glucose (70-99) mg/dl Lactate (0.4-2.0) mmol/L Calcium (8.5-10.1) mg/dl Magnesium (1.8-2.4) mg/dl Total Bilirubin (0.2-1) mg/dl AST (15-37) U/L ALT (12-78) U/L Alkaline Phosphatase (45-117) U/L Troponin I (0-0.045) ng/ml Total Protein (6.4-8.2) gm/dl Albumin (3.4-5.0) gm/dl Globulin (2.5-4.0) gm/dl Albumin/Globulin Ratio (0.9-2) Procalcitonin < 0.05 (0-0.5) ng/ml Urine Color Urine Appearance (Clear) Urine pH (4.5-7.5) Ur Specific [place] (1.000-1.030) Urine Protein (Negative) Urine Glucose (UA) (Negative) Urine Ketones (Negative) Urine Blood (Negative) Urine Nitrite (Negative) Urine Bilirubin (Negative) Urine Urobilinogen (Negative) Ur Leukocyte Esterase (Negative) Urine WBC (Auto) (0-5) /hpf Urine RBC (Auto) (0-4) /hpf U Hyaline Cast (Auto) (0-5) /lpf U Epithel Cells (Auto) (0-5) /lpf Urine Bacteria (Auto) (Negative) Ethyl Alcohol mg/dL (0-3) mg/dl Influenza Type A Ag (Neg) Influenza Type A (PCR) (Neg) Influenza Type B Ag (Neg) Influenza Type B (PCR) (Neg) 04/12/18 04/12/18 04/12/18 Range/Units 20:55 21:04 21:04 WBC (4.8-10.8) K/uL RBC (4.2-5.4) M/uL Hgb (12.0-16.0) g/dL Hct (37-47) % MCV (80-100) fL MCH (25-34) pg MCHC (32-36) g/dL RDW Std Deviation (36.4-46.3) fL RDW Coeff of Cindy (11.5-14.5) % Plt Count (130-400) K/uL MPV (7.4-10.4) fL Immature Gran % (Auto) % Neut % (Auto) % Lymph % (Auto) % Webb % (Auto) % Eos % (Auto) % Baso % (Auto) % Immature Gran # (Auto) (0.00-0.02) K/uL Neut # (Auto) (1.4-6.5) K/uL Lymph # (Auto) (1.2-3.4) K/uL Webb # (Auto) (0.11-0.59) K/uL Eos # (Auto) (0-0.5) K/uL Baso # (Auto) (0-0.2) K/uL PT (9.0-12.0) Seconds INR (0.9-1.1) APTT (21.0-31.0) Seconds PTT Ratio ABG pH (7.35-7.45) ABG pCO2 (35-46) mmHg ABG pO2 (80-95) mm/Hg ABG HCO3 (19-24) mmol/L ABG O2 Saturation (90-95) % ABG Base Excess (-9-1.8) mEq/L Ayo Test (Pos) Oxygen Given Sodium 141 (136-145) mmol/L Potassium 3.5 (3.5-5.1) mmol/L Chloride 104 (98-107) mmol/L Carbon Dioxide 31 (21-32) mmol/L Anion Gap 6.0 (3-11) BUN 15 (7-18) mg/dl Creatinine 1.00 (0.6-1.2) mg/dl Est Cr Clr Drug Dosing 59.5 ml/min Est GFR ( Amer) 66.6 Est GFR (Non-Af Amer) 57.4 BUN/Creatinine Ratio 15.2 (10-20) Glucose 135 H (70-99) mg/dl Lactate (0.4-2.0) mmol/L Calcium 8.6 (8.5-10.1) mg/dl Magnesium 2.1 (1.8-2.4) mg/dl Total Bilirubin 0.3 (0.2-1) mg/dl AST 11 L (15-37) U/L ALT 21 (12-78) U/L Alkaline Phosphatase 87 (45-117) U/L Troponin I < 0.015 (0-0.045) ng/ml Total Protein 6.7 (6.4-8.2) gm/dl Albumin 3.4 (3.4-5.0) gm/dl Globulin 3.3 (2.5-4.0) gm/dl Albumin/Globulin Ratio 1.0 (0.9-2) Procalcitonin (0-0.5) ng/ml Urine Color Urine Appearance (Clear) Urine pH (4.5-7.5) Ur Specific [place] (1.000-1.030) Urine Protein (Negative) Urine Glucose (UA) (Negative) Urine Ketones (Negative) Urine Blood (Negative) Urine Nitrite (Negative) Urine Bilirubin (Negative) Urine Urobilinogen (Negative) Ur Leukocyte Esterase (Negative) Urine WBC (Auto) (0-5) /hpf Urine RBC (Auto) (0-4) /hpf U Hyaline Cast (Auto) (0-5) /lpf U Epithel Cells (Auto) (0-5) /lpf Urine Bacteria (Auto) (Negative) Ethyl Alcohol mg/dL (0-3) mg/dl Influenza Type A Ag Neg for Influ A (Neg) Influenza Type A (PCR) Neg for Influ A (Neg) Influenza Type B Ag Neg for Influ B (Neg) Influenza Type B (PCR) Neg for Influ B (Neg) 04/13/18 04/13/18 04/13/18 Range/Units 00:29 00:29 00:29 WBC (4.8-10.8) K/uL RBC (4.2-5.4) M/uL Hgb (12.0-16.0) g/dL Hct (37-47) % MCV (80-100) fL MCH (25-34) pg MCHC (32-36) g/dL RDW Std Deviation (36.4-46.3) fL RDW Coeff of Cindy (11.5-14.5) % Plt Count (130-400) K/uL MPV (7.4-10.4) fL Immature Gran % (Auto) % Neut % (Auto) % Lymph % (Auto) % Webb % (Auto) % Eos % (Auto) % Baso % (Auto) % Immature Gran # (Auto) (0.00-0.02) K/uL Neut # (Auto) (1.4-6.5) K/uL Lymph # (Auto) (1.2-3.4) K/uL Webb # (Auto) (0.11-0.59) K/uL Eos # (Auto) (0-0.5) K/uL Baso # (Auto) (0-0.2) K/uL PT (9.0-12.0) Seconds INR (0.9-1.1) APTT (21.0-31.0) Seconds PTT Ratio ABG pH 7.40 (7.35-7.45) ABG pCO2 46 (35-46) mmHg ABG pO2 100 H (80-95) mm/Hg ABG HCO3 28 H (19-24) mmol/L ABG O2 Saturation 97.6 H (90-95) % ABG Base Excess 2.6 H (-9-1.8) mEq/L Ayo Test POS (Pos) Oxygen Given RA Sodium (136-145) mmol/L Potassium (3.5-5.1) mmol/L Chloride (98-107) mmol/L Carbon Dioxide (21-32) mmol/L Anion Gap (3-11) BUN (7-18) mg/dl Creatinine (0.6-1.2) mg/dl Est Cr Clr Drug Dosing ml/min Est GFR ( Amer) Est GFR (Non-Af Amer) BUN/Creatinine Ratio (10-20) Glucose (70-99) mg/dl Lactate 3.9 H* (0.4-2.0) mmol/L Calcium (8.5-10.1) mg/dl Magnesium Cancelled (1.8-2.4) mg/dl Total Bilirubin (0.2-1) mg/dl AST (15-37) U/L ALT (12-78) U/L Alkaline Phosphatase (45-117) U/L Troponin I (0-0.045) ng/ml Total Protein (6.4-8.2) gm/dl Albumin (3.4-5.0) gm/dl Globulin (2.5-4.0) gm/dl Albumin/Globulin Ratio (0.9-2) Procalcitonin (0-0.5) ng/ml Urine Color Urine Appearance (Clear) Urine pH (4.5-7.5) Ur Specific [place] (1.000-1.030) Urine Protein (Negative) Urine Glucose (UA) (Negative) Urine Ketones (Negative) Urine Blood (Negative) Urine Nitrite (Negative) Urine Bilirubin (Negative) Urine Urobilinogen (Negative) Ur Leukocyte Esterase (Negative) Urine WBC (Auto) (0-5) /hpf Urine RBC (Auto) (0-4) /hpf U Hyaline Cast (Auto) (0-5) /lpf U Epithel Cells (Auto) (0-5) /lpf Urine Bacteria (Auto) (Negative) Ethyl Alcohol mg/dL (0-3) mg/dl Influenza Type A Ag (Neg) Influenza Type A (PCR) (Neg) Influenza Type B Ag (Neg) Influenza Type B (PCR) (Neg) 04/13/18 04/13/18 Range/Units 00:29 00:45 WBC (4.8-10.8) K/uL RBC (4.2-5.4) M/uL Hgb (12.0-16.0) g/dL Hct (37-47) % MCV (80-100) fL MCH (25-34) pg MCHC (32-36) g/dL RDW Std Deviation (36.4-46.3) fL RDW Coeff of Cindy (11.5-14.5) % Plt Count (130-400) K/uL MPV (7.4-10.4) fL Immature Gran % (Auto) % Neut % (Auto) % Lymph % (Auto) % Webb % (Auto) % Eos % (Auto) % Baso % (Auto) % Immature Gran # (Auto) (0.00-0.02) K/uL Neut # (Auto) (1.4-6.5) K/uL Lymph # (Auto) (1.2-3.4) K/uL Webb # (Auto) (0.11-0.59) K/uL Eos # (Auto) (0-0.5) K/uL Baso # (Auto) (0-0.2) K/uL PT (9.0-12.0) Seconds INR (0.9-1.1) APTT (21.0-31.0) Seconds PTT Ratio ABG pH (7.35-7.45) ABG pCO2 (35-46) mmHg ABG pO2 (80-95) mm/Hg ABG HCO3 (19-24) mmol/L ABG O2 Saturation (90-95) % ABG Base Excess (-9-1.8) mEq/L Ayo Test (Pos) Oxygen Given Sodium (136-145) mmol/L Potassium (3.5-5.1) mmol/L Chloride (98-107) mmol/L Carbon Dioxide (21-32) mmol/L Anion Gap (3-11) BUN (7-18) mg/dl Creatinine (0.6-1.2) mg/dl Est Cr Clr Drug Dosing ml/min Est GFR ( Amer) Est GFR (Non-Af Amer) BUN/Creatinine Ratio (10-20) Glucose (70-99) mg/dl Lactate (0.4-2.0) mmol/L Calcium (8.5-10.1) mg/dl Magnesium (1.8-2.4) mg/dl Total Bilirubin (0.2-1) mg/dl AST (15-37) U/L ALT (12-78) U/L Alkaline Phosphatase (45-117) U/L Troponin I (0-0.045) ng/ml Total Protein (6.4-8.2) gm/dl Albumin (3.4-5.0) gm/dl Globulin (2.5-4.0) gm/dl Albumin/Globulin Ratio (0.9-2) Procalcitonin (0-0.5) ng/ml Urine Color Yellow Urine Appearance Clear (Clear) Urine pH 6.0 (4.5-7.5) Ur Specific [place] 1.017 (1.000-1.030) Urine Protein Negative (Negative) Urine Glucose (UA) Negative (Negative) Urine Ketones Negative (Negative) Urine Blood 2+ H (Negative) Urine Nitrite Negative (Negative) Urine Bilirubin Negative (Negative) Urine Urobilinogen Negative (Negative) Ur Leukocyte Esterase Negative (Negative) Urine WBC (Auto) 1-5 (0-5) /hpf Urine RBC (Auto) >30 H (0-4) /hpf U Hyaline Cast (Auto) 1-5 (0-5) /lpf U Epithel Cells (Auto) 5-10 H (0-5) /lpf Urine Bacteria (Auto) Negative (Negative) Ethyl Alcohol mg/dL < 3.0 (0-3) mg/dl Influenza Type A Ag (Neg) Influenza Type A (PCR) (Neg) Influenza Type B Ag (Neg) Influenza Type B (PCR) (Neg) Administered Medications Lactated Ringer's (Lr) 1,000 mls @ 500 mls/hr IV .Q2H ONE Stop: 04/13/18 03:16 Last Admin: 04/13/18 01:42 Dose: 500 mls/hr Discontinued Medications Acetaminophen (Tylenol) 650 mg PO NOW STA Stop: 04/13/18 01:10 Last Admin: 04/13/18 01:13 Dose: 650 mg Albuterol (Duoneb) 3 ml INH NOW STA Stop: 04/12/18 20:28 Last Admin: 04/12/18 20:58 Dose: 3 ml Albuterol (Duoneb) 12 ml NEB ONE ONE Stop: 04/12/18 21:22 Last Admin: 04/12/18 21:36 Dose: 12 ml Hydrocodone Bit/Homatropine Methylb (Hycodan) 5 ml PO NOW STA Stop: 04/12/18 20:28 Last Admin: 04/12/18 20:58 Dose: 5 ml Methylprednisolone (Solumedrol) 125 mg IV NOW STA Stop: 04/12/18 20:28 Last Admin: 04/12/18 20:59 Dose: 125 mg Potassium Chloride (Klor-Con M20) 50 meq PO NOW STA Stop: 04/12/18 23:58 Last Admin: 04/13/18 01:12 Dose: 50 meq Tramadol HCl (Ultram) 50 mg PO NOW STA Stop: 04/13/18 01:10 Last Admin: 04/13/18 01:13 Dose: 50 mg Imaging Data Radiologist's Impression: Radiology results as stated below per my review and the radiologist's interpretation: XR chest 1V portable CLINICAL HISTORY: Shortness of breath COMPARISON STUDY: 02/15/2018 FINDINGS: The heart is mildly enlarged. There is no failure. There is no lobar consolidation. There are no pleural effusions.[ IMPRESSION: No active disease in the chest. Electronically signed by: Rosas Briggs M.D. 04/12/2018 8:44 PM ECG Data Attestation: I personally reviewed and interpreted this ECG as follows: Indication: SOB/dyspnea Rate (beats per minute): 97 Rhythm: sinus rhythm Findings: + PAC and + PVC; no ST depression and no ST elevation Blood Pressure Blood Pressure Findings: Normal blood pressure Discharge Plan Visit Data *Final* Discharge Date/Time: 04/13/18 01:55 Chief Complaint: Illness Stated Complaint: FLU LIKE SX, COUGH, SOB, CHEST PAIN ED Provider: Mert Brito Discharge Problem: COPD exacerbation, Shortness of breath Patient Disposition: Admitted As Inpatient Discharge Instructions Interventions: ED Discharge Assessment Last Done: 04/13/18 01:55 The scribe's documentation has been prepared under my direction and personally reviewed by me in its entirety. I confirm that the note above accurately reflects all work, treatment, procedures, and medical decision making performed by me.
[2018-04-13] MEDS ORDERED: INSULIN GLARGINE SOLOSTAR 100 UNITS/ML 3 ML PEN SQ ONE (02:45)
[2018-04-13] MEDS ORDERED: OPTIRAY 320 125ml IV PRN (02:50)
[2018-04-13] MEDS: guaiFENesin 600 MG TABCR PO SCH ×3 (03:01→20:59)
[2018-04-13] MEDS: INSULIN ASPART 100 UNITS/ML 3 ML PEN SC SCH ×5 (03:09→20:37)
[2018-04-13 04:22] LABS: Basophils # (auto) 0.01 K/uL (0-0.2); Basophils % (auto) 0.1 %; Hematocrit (blood only) 34.1 % (37-47); Hemoglobin 10.7 g/dL (12.0-16.0); Immature Granulocytes # (auto) 0.13 K/uL (0.00-0.02); Immature Granulocytes % (auto) 0.8 %; Lymphocytes # (auto) 0.33 K/uL (1.2-3.4); Mean Corpuscular Hgb Conc 31.4 g/dL (32-36); Mean Platelet Volume 8.6 fL (7.4-10.4); Monocytes # (auto) 0.25 K/uL (0.11-0.59); Monocytes % (auto) 1.5 %; Neutrophils # (auto) 15.69 K/uL (1.4-6.5); Neutrophils % (auto) 95.6 %; Platelet Count 272 K/uL (130-400); RDW Coefficient of Variation 14.9 % (11.5-14.5); RDW Standard Deviation 48.7 fL (36.4-46.3); Red Blood Count 3.83 M/uL (4.2-5.4); White Blood Count 16.41 K/uL (4.8-10.8)
[2018-04-13 04:38] LABS: BUN Creatinine Ratio 12.9 (10-20); Creatinine Clr Calc Pharmacy 61.3 ml/min; Est GFR (African American) 69.9; Est GFR (Non-African American) 60.3; Potassium 3.9 mmol/L (3.5-5.1)
[2018-04-13] MEDS: IPRATROPIUM BROMIDE NEB SOLN 0.02% 2.5 ML VIAL INH SCH ×3 (07:06→19:22)
[2018-04-13] MEDS: LEVALBUTEROL 1.25MG/0.5ML NEB INH SCH ×3 (07:06→19:22)
[2018-04-13 07:21] LABS: Estimated Average Glucose 114 mg/dl; Hemoglobin A1C 5.6 % (4.5-5.6)
[2018-04-13] MEDS ORDERED: predniSONE 20 MG TAB PO SCH ×2 (09:00→12:05)
[2018-04-13] MEDS ORDERED: INSULIN GLARGINE SOLOSTAR 100 UNITS/ML 3 ML PEN SC SCH (09:00)
[2018-04-13] MEDS: PANTOprazole 40 MG TAB PO SCH ×2 (09:08→20:59)
[2018-04-13] MEDS: BENZONATATE 100 MG CAPSULE PO PRN ×2 (09:08→21:53)
[2018-04-13] MEDS: MONTELUKAST SODIUM 10 MG TABLET PO SCH (09:09)
[2018-04-13] MEDS: ENOXAPARIN INJ 30 MG/0.3 ML SYR SQ SCH (09:09)
--- NOTE | 2018-04-13 09:29 | CT Scan Report ---
CT ANGIOGRAPHY OF THE CHEST, PULMONARY EMBOLUS PROTOCOL CLINICAL HISTORY: Shortness of breath. Chest pain. COMPARISON STUDY: Chest CT October 10, 2017. Chest radiograph April 12, 2018. TECHNIQUE: Following IV administration of 118 mL of Optiray-320, helical axial images of the chest we re obtained utilizing the pulmonary embolus protocol. Maximal intensity projections and sagittal and coronal reformats were viewed on an independent 3D workstation. IV contrast was administered withou t complication. Automated exposure control was utilized for the study. A dose lowering technique wa s utilized adhering to the principles of ALARA. CT DOSE: 501.06 mGy.cm FINDINGS: No pulmonary emboli are identified. This exam is mildly compromised respiratory motion. Th ere is mild dilatation of the central pulmonary arteries. No thoracic aortic dissection or lymphadeno dalia is present. The central airways are patent. Right lower lobe airspace opacity reflects atelecta sis. There is no consolidation to suggest pneumonia. No pneumothorax or pleural effusion is present. An 8 mm right middle lobe nodule on image 123 of [id number] of January 22, 2016. This is benign given stability. Bony thorax and upper abdomen are unremarkable. IMPRESSION: 1. No pulmonary emboli identified. 2. No consolidation. 3. No thoracic aortic dissection. Electronically signed by: Roni Ragland M.D. 04/13/2018 9:28 AM
[2018-04-13] MEDS: LORazepam 1 MG TAB PO PRN ×2 (09:53→23:49)
[2018-04-13] MEDS: levoFLOXacin 500 MG TAB PO SCH (09:53)
--- NOTE | 2018-04-13 16:22 | Hospitalist Progress Note ---
Date of Service April 13, 2018 Assessment & Plan (1) Respiratory failure, acute and chronic: Acute on chronic respiratory failure Secondary to COPD exacerbation Chronic Oxygen dependency Past Tobacco abuse CTA: No pulmonary emboli identified. No consolidation. No thoracic aortic dissection. Reports chest pain associated with cough Continue Bronchodilators, steroids, Abx Supplemental Oxygen Pulmnology consulted Hyperglycemia Likely 2/2 steroids A1C:5.6 monitor GERD: Continue PPI Chronic anemia Hb at baseline monitor DVT Px: Lovenox SQ Code Status Full code Subjective Patient is seen and examined at bedside Reports cough, dyspnea, wheezing Also has chronic headache Denies dyspnea, dizziness, abd pain No other comaplaints Physical Exam 2 Vital Signs (Past 24 Hours): Last Vital Signs Temp 37.1 C 04/13/18 15:14 Pulse 96 H 04/13/18 15:14 Resp 18 04/13/18 15:14 BP 114/72 04/13/18 15:14 Pulse Ox 94 04/13/18 15:14 Physical Exam: Physical Exam: Vitals signs as noted above General Appearance:Moderately built and nourished, no apparent distress Head: normocephalic, Atraumatic Eyes: normal inspection, EOMI Neck: supple, Trachea midline Respiratory/Chest: Decreased breath sounds, +wheezes Cardiovascular: S1, S2, No murmur Abdomen/GI:Soft, Non tender, Bowel sounds present Extremities/Musculoskelatal:normal inspection, no edema Neurologic/Psych:AAOX3, grossly no focal neurological deficits Skin: normal color, warm Results & Data Laboratory Results Short CBC 04/12/18 04/13/18 Range/Units 19:10 04:13 WBC 16.29 H 16.41 H (4.8-10.8) K/uL Hgb 11.7 L 10.7 L (12.0-16.0) g/dL Hct 36.6 L 34.1 L (37-47) % Plt Count 343 272 (130-400) K/uL BMP 04/12/18 04/13/18 20:55 04:13 Sodium 141 139 Potassium 3.5 3.9 Chloride 104 105 Carbon Dioxide 31 30 BUN 15 12 Creatinine 1.00 0.96 Glucose 135 H 158 H Calcium 8.6 8.0 L Cardiac Enzymes 04/12/18 Range/Units 20:55 Troponin I < 0.015 (0-0.045) ng/ml Liver Function 04/12/18 Range/Units 20:55 Total Bilirubin 0.3 (0.2-1) mg/dl AST 11 L (15-37) U/L ALT 21 (12-78) U/L Alkaline Phosphatase 87 (45-117) U/L Albumin 3.4 (3.4-5.0) gm/dl Urine 04/13/18 Range/Units 00:45 Urine Color Yellow Urine Appearance Clear (Clear) Urine pH 6.0 (4.5-7.5) Ur Specific [place] 1.017 (1.000-1.030) Urine Protein Negative (Negative) Urine Glucose (UA) Negative (Negative)
[2018-04-13] MEDS: SERTRALINE HCL 50 MG TABLET PO SCH (21:00)
--- NOTE | 2018-04-13 21:35 | Consultation Report ---
DATE OF CONSULTATION: 04/13/2018 PULMONARY MEDICINE CONSULTATION REASON FOR CONSULTATION: Tracheomalacia, COPD exacerbation. HISTORY OF PRESENT ILLNESS: A 68-year-old white female well known to me, who was scheduled for bronchoscopic evaluation this coming Sunday. Was seen in the Emergency Room and admitted onto the hospitalist service with symptoms of progressive dyspnea over the past several days. She was last seen by Prabha Russell, our nurse practitioner in the office on 03/11/2018 and prescribed 7% hypertonic saline b.i.d. via nebulizer along with flutter valve and attempts to get a vibration vest as well for her to eventuate pulmonary toilet. The patient's symptoms became progressively worse. She was going to go with a friend to the [employer] yesterday but became too short of breath and came in here. She has been on home oxygen at 2 liters and when off oxygen markedly desaturates. She is not aware that she has been running a low-grade fever at home. Denies rigors and chills and has quit smoking, up to a [id number] history 4 years ago. She was admitted for further evaluation and therapy. Past medical history, medications, family and social history, I refer you to current and past record. PFTs showed reversible airway disease with hyperinflation and moderate reduction in diffusion capacity. She has a history of COPD exacerbations, chronic renal disease, allergic rhinitis, and endoscopic dynamic airway collapse, as well as mild obstructive sleep apnea and is stable to date with pulmonary nodule. For details of past medical history, medications, family and social history, I refer you to current and past record. She has a stable 8-mm right middle lobe nodule that has been unchanged since 2016 and an intractable cough. PHYSICAL EXAMINATION: GENERAL: Well-developed, well-nourished white female appearing stable at rest. CURRENT VITAL SIGNS: Blood pressure 131/60, pulse 98 and regular, respiratory rate 18, temperature 36.4, O2 sat 96% on room air. SKIN: Without lesion. HEENT: Atraumatic, normocephalic. PERRLA. LUNGS: Coarse wheezes diffusely. CARDIAC: Unchanged. ABDOMEN: Soft. EXTREMITIES: Trace pedal edema. No clubbing. Peripheral cyanosis. NEUROLOGIC: Intact. No lateralizing signs. LABORATORY DATA: White count 16,000, H and H 10.7 and 34.1. No significant peripheral eosinophilia. Lactate was 2.6. IgG level since last summer has been running low at 558 mg per deciliter. Influenza A and B PCR negative. The patient underwent a CTA in the ER. No pulmonary emboli or evidence for consolidation noted. OVERALL ASSESSMENT: A 68-year-old with moderately severe chronic obstructive pulmonary disease with exacerbation, also a history of tracheobronchomalacia admitted with chronic obstructive pulmonary disease exacerbation. The patient currently is receiving aerosolized bronchodilator, gastroesophageal reflux disease prophylaxis, subQ Lovenox, and IV Levaquin and p.o. prednisone. At this point in time, I would go with intravenous Solu-Medrol, continued pulmonary toilet and would proceed as scheduled for bronchoscopic evaluation with BAL on Sunday if patient does not show significant improvement in the interim. We will follow along with you. Thank very much for this consultation.
[2018-04-13] MEDS: methylPREDNISolone 80 MG in SYRINGE 0 ML IV SCH (21:53)
[2018-04-13] MEDS: TRAMADOL HCL 50 MG TABLET PO PRN (23:49)
[2018-04-13] MEDS: GUAIFENESIN/CODEINE 100MG/10MG 5ML UDC PO PRN (23:50)
[2018-04-14] MEDS: LEVALBUTEROL 1.25MG/0.5ML NEB INH SCH ×4 (01:54→19:04)
[2018-04-14] MEDS: IPRATROPIUM BROMIDE NEB SOLN 0.02% 2.5 ML VIAL INH SCH ×4 (01:54→19:04)
[2018-04-14 07:05] LABS: Hematocrit (blood only) 34.3 % (37-47); Hemoglobin 10.8 g/dL (12.0-16.0); Mean Corpuscular Hgb Conc 31.5 g/dL (32-36); Mean Corpuscular Volume 88.6 fL (80-100); Platelet Count 288 K/uL (130-400); RDW Coefficient of Variation 15.4 % (11.5-14.5); RDW Standard Deviation 49.4 fL (36.4-46.3); Red Blood Count 3.87 M/uL (4.2-5.4); White Blood Count 18.62 K/uL (4.8-10.8)
[2018-04-14 07:41] LABS: BUN Creatinine Ratio 23.9 (10-20); Calcium 8.4 mg/dl (8.5-10.1); Creatinine Clr Calc Pharmacy 63.9 ml/min; Est GFR (African American) 73.6; Est GFR (Non-African American) 63.5; Potassium 4.1 mmol/L (3.5-5.1)
[2018-04-14] MEDS: methylPREDNISolone 80 MG in SYRINGE 0 ML IV SCH ×2 (08:16→20:48)
[2018-04-14] MEDS: guaiFENesin 600 MG TABCR PO SCH ×2 (08:16→20:49)
[2018-04-14] MEDS: BENZONATATE 100 MG CAPSULE PO PRN (08:17)
[2018-04-14] MEDS: MONTELUKAST SODIUM 10 MG TABLET PO SCH (08:17)
[2018-04-14] MEDS: PANTOprazole 40 MG TAB PO SCH ×2 (08:17→20:49)
[2018-04-14] MEDS: INSULIN ASPART 100 UNITS/ML 3 ML PEN SC SCH ×4 (08:18→20:47)
[2018-04-14] MEDS: ENOXAPARIN INJ 30 MG/0.3 ML SYR SQ SCH (08:19)
[2018-04-14] MEDS: TRAMADOL HCL 50 MG TABLET PO PRN ×2 (08:22→20:55)
[2018-04-14] MEDS: GUAIFENESIN/CODEINE 100MG/10MG 5ML UDC PO PRN ×2 (08:23→20:55)
--- NOTE | 2018-04-14 09:45 | Progress Note ---
DATE: 04/14/2018 TIME: 799 Chart reviewed, the patient examined. SUBJECTIVE: The patient feels somewhat better, but still producing very little phlegm and remains bronchospastic. She was originally scheduled prior to this hospitalization for bronchoscopic evaluation on Sunday. She is chronically O2 dependent and I saw her in consultation yesterday. I have referred to my notation. She is quite stable from a respiratory standpoint. OBJECTIVE: VITAL SIGNS: Blood pressure 126/78, pulse 81 and regular, respiratory rate 18, temperature 37, O2 sat 98% on 1 liter. SKIN: Warm and dry. HEENT: Atraumatic, normocephalic. PERRLA. LUNGS: Scattered wheeze with rhonchi right base, distant P and A with full inspiratory effort. The patient exhibits significant paroxysms of coughing. No obvious evidence for consolidation. CARDIAC: Regular rate and rhythm. No murmurs or gallops. PMI nondisplaced. ABDOMEN: Soft, protuberant. No evidence of hepatosplenomegaly. EXTREMITIES: No pedal edema, clubbing or cyanosis. NEUROLOGICAL: Intact. LABORATORY DATA: White count 18,000, no doubt secondary to demargination from her steroid therapy. H and H 10.8 and 34.3. The CTA that was done yesterday and reviewed really showed no acute process, no evidence of pulmonary thromboembolic disease. Blood cultures have been negative. PT, PTT within normal limits. Blood gases on admission on room air: pH 7.40, pCO2 of 46, pO2 of 100. BUN 22, creatinine 0.9. Influenza A and B PCR negative. OVERALL ASSESSMENT: A 68-year-old with chronic obstructive pulmonary disease with acute exacerbation, who is not improved as an outpatient and remained somewhat bronchospastic here. I do have her scheduled Sunday for bronchoscopic evaluation with BAL. Unfortunately, I cannot add her to a full schedule tomorrow and if by chance she is to be discharged before Sunday, we can bring her in as an outpatient for the procedure. We will follow along with you.
[2018-04-14] MEDS ORDERED: ASCORBIC ACID 500 MG TAB PO SCH (11:00)
[2018-04-14] MEDS: POTASSIUM CHLORIDE 20 MEQ TABCR PO SCH (13:06)
[2018-04-14] MEDS: CHOLECALCIFEROL 1,000 UNITS TAB PO SCH ×2 (13:06→20:51)
[2018-04-14] MEDS: FUROSEMIDE 20 MG TAB PO SCH (13:07)
[2018-04-14] MEDS: levoFLOXacin 500 MG TAB PO SCH (13:08)
--- NOTE | 2018-04-14 13:54 | Hospitalist Progress Note ---
Date of Service April 14, 2018 Assessment & Plan (1) Respiratory failure, acute and chronic: Acute on chronic respiratory failure Secondary to COPD exacerbation Chronic Oxygen dependency Past Tobacco abuse CTA: No pulmonary emboli identified. No consolidation. No thoracic aortic dissection. Continue Bronchodilators, steroids, Abx Supplemental Oxygen Appreciate Pulmnology Input Planned for Bronchoscopy on Sunday H/O Renal Cyst as per Patient Reports abd discomfort Check Renal USD Hyperglycemia Likely 2/2 steroids A1C:5.6 monitor GERD: Continue PPI Chronic anemia Hb at baseline monitor DVT Px: Lovenox SQ Code Status Full code Subjective Patient is seen and examined at bedside Still have productive cough and SOB Reports having flank discomfort and reports H/O renal cyst Has chronic intermittent headache Denies chest pain, dizziness, abd pain Physical Exam 2 Vital Signs (Past 24 Hours): Last Vital Signs Temp 37.0 C 04/14/18 11:30 Pulse 107 H 04/14/18 13:27 Resp 18 04/14/18 13:27 BP 129/79 04/14/18 11:30 Pulse Ox 98 04/14/18 13:27 Physical Exam: Physical Exam: Vitals signs as noted above General Appearance:Moderately built and nourished, no apparent distress Head: normocephalic, Atraumatic Eyes: normal inspection, EOMI Neck: supple, Trachea midline Respiratory/Chest: Decreased breath sounds, +wheezes Cardiovascular: S1, S2, No murmur Abdomen/GI:Soft, Non tender, Bowel sounds present Extremities/Musculoskelatal:normal inspection, no edema Neurologic/Psych:AAOX3, grossly no focal neurological deficits Skin: normal color, warm Results & Data Laboratory Results Short CBC 04/14/18 Range/Units 06:54 WBC 18.62 H (4.8-10.8) K/uL Hgb 10.8 L (12.0-16.0) g/dL Hct 34.3 L (37-47) % Plt Count 288 (130-400) K/uL BMP 04/14/18 06:54 Sodium 143 Potassium 4.1 Chloride 106 Carbon Dioxide 32 BUN 22 H D Creatinine 0.92 Glucose 122 H Calcium 8.4 L
--- NOTE | 2018-04-14 14:38 | Ultrasound Report ---
EXAMINATION: RENAL ULTRASOUND CLINICAL HISTORY: Renal Cyst COMPARISON STUDY: Biliary ultrasound dated 11/21/2015 FINDINGS: The right kidney measures 10.6 cm. The left kidney measures 9.7 cm. There is no evidence o f hydronephrosis. There are no renal masses. The bladder was not visualized and presumably empty. IMPRESSION : 1. No renal masses identified. No evidence of hydronephrosis 2. Nonvisualization of the bladder Electronically signed by: Rosas Briggs M.D. 04/14/2018 2:36 PM
[2018-04-14] MEDS: CLOTRIMAZOLE 10 MG TROCHE BUCCAL SCH ×3 (18:39→23:56)
[2018-04-14] MEDS: ATORVASTATIN 10 MG TAB PO SCH (20:50)
[2018-04-14] MEDS: SERTRALINE HCL 50 MG TABLET PO SCH (20:50)
[2018-04-14] MEDS: ASCORBIC ACID 500 MG TAB PO SCH (20:51)
[2018-04-14] MEDS: LORazepam 1 MG TAB PO PRN (20:54)
[2018-04-15] MEDS: IPRATROPIUM BROMIDE NEB SOLN 0.02% 2.5 ML VIAL INH SCH ×4 (01:49→19:09)
[2018-04-15] MEDS: LEVALBUTEROL 1.25MG/0.5ML NEB INH SCH ×4 (01:49→19:09)
[2018-04-15] MEDS: CLOTRIMAZOLE 10 MG TROCHE BUCCAL SCH ×5 (06:05→22:35)
[2018-04-15] MEDS: GUAIFENESIN/CODEINE 100MG/10MG 5ML UDC PO PRN ×2 (06:47→21:01)
[2018-04-15] MEDS: INSULIN ASPART 100 UNITS/ML 3 ML PEN SC SCH ×4 (07:54→20:30)
[2018-04-15] MEDS: ENOXAPARIN INJ 30 MG/0.3 ML SYR SQ SCH (08:31)
[2018-04-15] MEDS: guaiFENesin 600 MG TABCR PO SCH ×2 (08:32→20:47)
[2018-04-15] MEDS: PANTOprazole 40 MG TAB PO SCH ×2 (08:32→20:47)
[2018-04-15] MEDS: MONTELUKAST SODIUM 10 MG TABLET PO SCH (08:32)
[2018-04-15] MEDS: FUROSEMIDE 20 MG TAB PO SCH (08:33)
[2018-04-15] MEDS: POTASSIUM CHLORIDE 20 MEQ TABCR PO SCH (08:33)
[2018-04-15] MEDS: methylPREDNISolone 80 MG in SYRINGE 0 ML IV SCH (08:34)
[2018-04-15] MEDS: CHOLECALCIFEROL 1,000 UNITS TAB PO SCH ×2 (08:41→20:48)
[2018-04-15] MEDS: TRAMADOL HCL 50 MG TABLET PO PRN ×2 (08:50→20:46)
[2018-04-15] MEDS: LORazepam 1 MG TAB PO PRN ×2 (08:51→20:46)
[2018-04-15] MEDS: levoFLOXacin 500 MG TAB PO SCH (12:16)
--- NOTE | 2018-04-15 16:54 | Hospitalist Progress Note ---
Date of Service April 15, 2018 Assessment & Plan (1) Respiratory failure, acute and chronic: Acute on chronic respiratory failure Secondary to COPD exacerbation Chronic Oxygen dependency Past Tobacco abuse CTA: No pulmonary emboli identified. No consolidation. No thoracic aortic dissection. Continue Bronchodilators, steroids, Abx Supplemental Oxygen Appreciate Pulmnology Input Planned for Bronchoscopy on Sunday Add Pulmicort Pulmonary Hygiene H/O Renal Cyst as per Patient Abd pain resolved Renal USD:No acute process Hyperglycemia Likely 2/2 steroids A1C:5.6 monitor GERD: Continue PPI Chronic anemia Hb at baseline monitor DVT Px: Lovenox SQ Code Status Full code Subjective Patient is seen and examined at bedside States having no improvement of her symptoms Reports productive cough and SOB Has chronic intermittent headache Denies chest pain, dizziness, abd pain Physical Exam 2 Vital Signs (Past 24 Hours): Last Vital Signs Temp 36.7 C 04/15/18 15:43 Pulse 91 H 04/15/18 15:43 Resp 16 04/15/18 15:43 BP 121/73 04/15/18 15:43 Pulse Ox 98 04/15/18 15:43 Physical Exam: Physical Exam: Vitals signs as noted above General Appearance:Moderately built and nourished, no apparent distress Head: normocephalic, Atraumatic Eyes: normal inspection, EOMI Neck: supple, Trachea midline Respiratory/Chest: Decreased breath sounds, +mild wheezes Cardiovascular: S1, S2, No murmur Abdomen/GI:Soft, Non tender, Bowel sounds present Extremities/Musculoskelatal:normal inspection, no edema Neurologic/Psych:AAOX3, grossly no focal neurological deficits Skin: normal color, warm
--- NOTE | 2018-04-15 17:06 | Pulmonology Progress Note ---
Date of Service April 15, 2018 Assessment & Plan (1) COPD exacerbation: Impression: 1. Acute exacerbation of severe COPD, home O2 dependent gold level 3. 2., Sleep related breathing disorder. 3. Acute on chronic hypoxic respiratory failure. Plan: 1. I will change the frequency of the dosing of Solu-Medrol to 40 mg IV every 6. 2. Continue with Levaquin for 5 days only. 3. Xopenex 4 times daily. With Atrovent. 4. Add Mucomyst nebulized treatments for mucoid impaction. 5. Ccntinue Singulair. 6. The patient is planned for bronchoscopy by Dr. Casper on April 17. Thank you, will follow. Subjective The patient continued to have shortness of breath accompanied with cough difficulty raising her sputum. Denies any chest pain, no abdominal pain, no nausea or vomiting, she has no heartburn no postnasal drip and no fever. Apart from the above, review of system was unremarkable, no events overnight. Physical Exam 2 Vital Signs (Past 24 Hours): Last Vital Signs Temp 36.7 C 04/15/18 15:43 Pulse 91 H 04/15/18 15:43 Resp 16 04/15/18 15:43 BP 121/73 04/15/18 15:43 Pulse Ox 98 04/15/18 15:43 Physical Exam: Her vital signs remained stable, S1-S2 regular rate and rhythm , lungs with distant breath sounds, abdomen is benign, no edema. Neurologically she is intact. No oral thrush. No rash. Results & Data Laboratory Results Leukocytosis secondary to steroids, glucose is controlled. Diagnostic Findings CAT scan of the chest reviewed personally which showed COPD changes, mucoid impaction in multiple subsegments.
[2018-04-15] MEDS: ACETYLCYSTEINE 10% INHAL SOLN **DISPENSED FROM RESP. INH SCH (19:09)
[2018-04-15] MEDS: BUDESONIDE 0.5 MG/2 ML VIAL (PULMICORT) NEB SCH (19:09)
[2018-04-15] MEDS: methylPREDNISolone 40 MG in SYRINGE 0 ML IV SCH (20:40)
[2018-04-15] MEDS: ATORVASTATIN 10 MG TAB PO SCH (20:47)
[2018-04-15] MEDS: SERTRALINE HCL 50 MG TABLET PO SCH (20:48)
[2018-04-15] MEDS: ASCORBIC ACID 500 MG TAB PO SCH (20:48)
[2018-04-16] MEDS: IPRATROPIUM BROMIDE NEB SOLN 0.02% 2.5 ML VIAL INH SCH ×4 (01:52→19:34)
[2018-04-16] MEDS: LEVALBUTEROL 1.25MG/0.5ML NEB INH SCH ×4 (01:53→19:34)
[2018-04-16] MEDS: methylPREDNISolone 40 MG in SYRINGE 0 ML IV SCH ×5 (02:07→23:31)
[2018-04-16 06:05] LABS: Hematocrit (blood only) 34.9 % (37-47); Mean Corpuscular Hgb Conc 31.5 g/dL (32-36); Mean Corpuscular Volume 89.3 fL (80-100); Mean Platelet Volume 9.5 fL (7.4-10.4); Platelet Count 313 K/uL (130-400); RDW Coefficient of Variation 15.4 % (11.5-14.5); Red Blood Count 3.91 M/uL (4.2-5.4); White Blood Count 16.45 K/uL (4.8-10.8)
[2018-04-16] MEDS: CLOTRIMAZOLE 10 MG TROCHE BUCCAL SCH ×5 (06:18→22:22)
[2018-04-16 06:36] LABS: BUN Creatinine Ratio 27.7 (10-20); Calcium 8.1 mg/dl (8.5-10.1); Creatinine Clr Calc Pharmacy 69.7 ml/min; Est GFR (African American) 79.9; Est GFR (Non-African American) 68.9; Potassium 4.3 mmol/L (3.5-5.1)
[2018-04-16] MEDS: BUDESONIDE 0.5 MG/2 ML VIAL (PULMICORT) NEB SCH ×2 (07:16→19:34)
[2018-04-16] MEDS: ACETYLCYSTEINE 10% INHAL SOLN **DISPENSED FROM RESP. INH SCH ×3 (07:17→16:56)
[2018-04-16] MEDS: MONTELUKAST SODIUM 10 MG TABLET PO SCH (07:35)
[2018-04-16] MEDS: guaiFENesin 600 MG TABCR PO SCH ×2 (07:35→19:26)
[2018-04-16] MEDS: PANTOprazole 40 MG TAB PO SCH ×2 (07:35→19:26)
[2018-04-16] MEDS: FUROSEMIDE 20 MG TAB PO SCH (07:35)
[2018-04-16] MEDS: CHOLECALCIFEROL 1,000 UNITS TAB PO SCH ×2 (07:35→19:26)
[2018-04-16] MEDS: POTASSIUM CHLORIDE 20 MEQ TABCR PO SCH (07:36)
[2018-04-16] MEDS: ENOXAPARIN INJ 30 MG/0.3 ML SYR SQ SCH (07:36)
[2018-04-16] MEDS: BENZONATATE 100 MG CAPSULE PO PRN (07:37)
[2018-04-16] MEDS: LORazepam 1 MG TAB PO PRN ×2 (07:40→22:22)
[2018-04-16] MEDS: ACETAMINOPHEN 325 MG TAB PO PRN (07:40)
[2018-04-16] MEDS: INSULIN ASPART 100 UNITS/ML 3 ML PEN SC SCH ×4 (08:49→21:11)
[2018-04-16] MEDS: levoFLOXacin 500 MG TAB PO SCH (12:07)
[2018-04-16] MEDS ORDERED: ALBUT/IPRATROP 3MG/0.5MG NEB 3 ML VIAL NEB STA (16:39)
[2018-04-16] MEDS ORDERED: ALBUTEROL 0.083% NEBU SOLN 3 ML VIAL NEB PRN (16:56)
--- NOTE | 2018-04-16 17:13 | Hospitalist Progress Note ---
Date of Service April 16, 2018 Assessment & Plan (1) Respiratory failure, acute and chronic: Acute on chronic respiratory failure Secondary to COPD exacerbation Chronic Oxygen dependency Past Tobacco abuse CTA: No pulmonary emboli identified. No consolidation. No thoracic aortic dissection. Continue Bronchodilators, steroids, Abx On levaquin Day 4/5 Supplemental Oxygen as needed Appreciate Pulmnology Input Planned for Bronchoscopy tomorrow Added Pulmicort, Mucomyst Pulmonary Hygiene Doesn't tolerate Mucomyst H/O Renal Cyst as per Patient Abd pain resolved Renal USD:No acute process Hyperglycemia Likely 2/2 steroids A1C:5.6 monitor GERD: Continue PPI Chronic anemia Hb at baseline monitor DVT Px: Lovenox SQ Code Status Full code Subjective Patient is seen and examined at bedside States doing this morning --Less SOB and cough Had a brief episode of dyspea/chest tightness later today Has chronic intermittent headache Denies dizziness, abd pain Planned for Bronchoscopy tomorrow Physical Exam 2 Vital Signs (Past 24 Hours): Last Vital Signs Temp 37.0 C 04/16/18 14:41 Pulse 82 04/16/18 16:53 Resp 20 04/16/18 16:53 BP 157/90 H 04/16/18 14:41 Pulse Ox 95 04/16/18 16:53 Physical Exam: Physical Exam: Vitals signs as noted above General Appearance:Moderately built and nourished, no apparent distress Head: normocephalic, Atraumatic Eyes: normal inspection, EOMI Neck: supple, Trachea midline Respiratory/Chest: Decreased breath sounds, +B/L wheezes/Rhonchi Cardiovascular: S1, S2, No murmur Abdomen/GI:Soft, Non tender, Bowel sounds present Extremities/Musculoskelatal:normal inspection, no edema Neurologic/Psych:AAOX3, grossly no focal neurological deficits Skin: normal color, warm Results & Data Laboratory Results Short CBC 04/16/18 Range/Units 05:34 WBC 16.45 H (4.8-10.8) K/uL Hgb 11.0 L (12.0-16.0) g/dL Hct 34.9 L (37-47) % Plt Count 313 (130-400) K/uL BMP 04/16/18 05:34 Sodium 141 Potassium 4.3 Chloride 104 Carbon Dioxide 33 H BUN 24 H Creatinine 0.86 Glucose 135 H Calcium 8.1 L
[2018-04-16] MEDS: ASCORBIC ACID 500 MG TAB PO SCH (19:26)
[2018-04-16] MEDS: SERTRALINE HCL 50 MG TABLET PO SCH (19:26)
[2018-04-16] MEDS: ATORVASTATIN 10 MG TAB PO SCH (19:26)
--- NOTE | 2018-04-16 20:09 | Pulmonology Progress Note ---
Date of Service April 16, 2018 Assessment & Plan (1) COPD exacerbation: Impression: 1. Acute exacerbation of severe COPD, home O2 dependent gold level 3. Improving. 2., Sleep related breathing disorder. 3. Acute on chronic hypoxic respiratory failure. Plan: 1. I will continue Solu-Medrol until tomorrow noon time. 2. Continue with Levaquin for 5 days only. 3. Xopenex 4 times daily. With Atrovent. 4. Add Mucomyst nebulized treatments for mucoid impaction. 5. Ccntinue Singulair. 6. The patient is planned for bronchoscopy by Dr. Casper on April 17. 7. Start prednisone at 2 PM tomorrow after the patient completed her bronchoscopy. 8. Disposition plan per The principal team. Thank you, will follow as needed. Subjective Continue to have occasional cough, shortness of breath is better, no events overnight, planned for bronchoscopy by Dr. Casper in the morning. Physical Exam 2 Vital Signs (Past 24 Hours): Last Vital Signs Temp 36.5 C 04/16/18 19:17 Pulse 78 04/16/18 19:35 Resp 18 04/16/18 19:35 BP 145/70 H 04/16/18 19:17 Pulse Ox 96 04/16/18 19:35 Physical Exam: Vital signs are stable, S1-S2 regular rate and rhythm, distant breath sounds bilaterally, abdomen is benign, no edema. Results & Data Laboratory Results Leukocytosis noted, the rest of her labs are stable. Diagnostic Findings No new imaging.
[2018-04-16] MEDS: TRAMADOL HCL 50 MG TABLET PO PRN (22:22)
[2018-04-16] MEDS: GUAIFENESIN/CODEINE 100MG/10MG 5ML UDC PO PRN (22:23)
[2018-04-17] MEDS: LEVALBUTEROL 1.25MG/0.5ML NEB INH SCH ×4 (02:11→18:35)
[2018-04-17] MEDS: IPRATROPIUM BROMIDE NEB SOLN 0.02% 2.5 ML VIAL INH SCH ×4 (02:11→18:35)
[2018-04-17] MEDS: methylPREDNISolone 40 MG in SYRINGE 0 ML IV SCH ×2 (06:15→13:52)
[2018-04-17] MEDS: CLOTRIMAZOLE 10 MG TROCHE BUCCAL SCH ×5 (06:20→21:57)
[2018-04-17] MEDS: ACETYLCYSTEINE 10% INHAL SOLN **DISPENSED FROM RESP. INH SCH ×5 (07:18→21:59)
[2018-04-17] MEDS: BUDESONIDE 0.5 MG/2 ML VIAL (PULMICORT) NEB SCH ×2 (07:19→18:36)
[2018-04-17 07:51] LABS: Hematocrit (blood only) 35.8 % (37-47); Hemoglobin 11.1 g/dL (12.0-16.0); Mean Corpuscular Volume 89.3 fL (80-100); Mean Platelet Volume 9.5 fL (7.4-10.4); Platelet Count 310 K/uL (130-400); RDW Coefficient of Variation 15.1 % (11.5-14.5); RDW Standard Deviation 49.6 fL (36.4-46.3); Red Blood Count 4.01 M/uL (4.2-5.4); White Blood Count 17.95 K/uL (4.8-10.8)
[2018-04-17] MEDS: INSULIN ASPART 100 UNITS/ML 3 ML PEN SC SCH ×4 (08:08→20:50)
[2018-04-17 08:23] LABS: BUN Creatinine Ratio 33.5 (10-20); Calcium 8.1 mg/dl (8.5-10.1); Creatinine Clr Calc Pharmacy 81.3 ml/min; Est GFR (African American) 95.8; Est GFR (Non-African American) 82.7; Magnesium 2.5 mg/dl (1.8-2.4); Potassium 4.5 mmol/L (3.5-5.1)
--- NOTE | 2018-04-17 08:42 | History & Physical Bridge Note ---
Date of Service April 17, 2018 History & Physical Bridge Note I have examined the patient, reviewed the History & Physical and in the interval since the performance of the History & Physical I have noted the following changes of clinical significance: no changes noted
--- NOTE | 2018-04-17 08:43 | Pre Anesthesia Assessment ---
Date of Service April 17, 2018 Pre Sedation Assessment Vital Signs Temp Pulse Pulse Resp BP BP Pulse Ox 04/17/18 07:20 62 18 98 04/17/18 06:52 36.8 C 72 20 136/77 96 04/17/18 04:40 36.8 C 87 20 147/82 H 97 04/17/18 02:12 92 H 18 99 04/16/18 23:37 36.9 C 87 20 137/87 100 04/16/18 19:35 78 18 96 04/16/18 19:17 36.5 C 90 18 145/70 H 94 04/16/18 16:53 82 20 95 04/16/18 15:37 90 04/16/18 14:41 37.0 C 83 18 157/90 H 99 04/16/18 13:42 78 18 96 04/16/18 11:50 36.5 C 80 18 132/72 98 Cardiovascular RRR, no murmur, no edema + peripheral pulses normal Respiratory normal respiratory effort, lungs clear to auscultation Pre-Sedation Airway Assessment Smoking Status: Former smoker Hx Sleep Apnea: No Hx Difficult Intubation: No Short, Thick Neck: No Thyromental Distance: > or= 3.5 Finger Breadths Oral Cavity: + WNL Mallampati Class: II ASA: ASA2 Procedure Planning Contraindications for Sedation: none Current Medications Reviewed: Yes Notes The planned sedation has been discussed with the patient. Informed Consent was obtained. I have identified the patient, determined the appropriateness of sedation and have assessed the patient immediately prior to the procedure. All medicine(s) and interventions are by my order.
[2018-04-17] MEDS: SODIUM CHLORIDE 0.9% 1000ML 1,000 ML IV SCH (09:43)
[2018-04-17] MEDS ORDERED: LIDOCAINE HCL 2% (LOCAL) INJ 50 ML VIAL INFIL STA (11:54)
[2018-04-17] MEDS ORDERED: LIDOCAINE HCL VISCOUS SOLN 2% 15 ML UDC MT ONE (11:54)
[2018-04-17] MEDS ORDERED: OXYMETAZOLINE 0.05% 30 ML BTL ONE (11:54)
[2018-04-17] MEDS ORDERED: fentaNYL citrate 100 MCG/2 ML VIAL IV ONE (11:54)
[2018-04-17] MEDS ORDERED: MIDAZOLAM HCL 1 MG/ML 2ML VIAL IV STA (11:54)
[2018-04-17] MEDS ORDERED: LEVALBUTEROL HCL 1.25 MG/3 ML NEB NEB STA (11:54)
[2018-04-17] MEDS ORDERED: LIDOCAINE 4% INH SOLN 4 ML BTL INH SCH (12:00)
--- NOTE | 2018-04-17 12:04 | Post Anesthesia Assessment ---
Date of Service April 17, 2018 Post Sedation Assessment Vital Signs Temp Pulse Pulse Resp BP BP Pulse Ox 04/17/18 12:00 92 H 22 160/78 H 93 04/17/18 11:55 93 H 22 146/80 H 93 04/17/18 11:50 94 H 22 147/94 H 93 04/17/18 11:45 102 H 24 154/81 H 95 04/17/18 11:40 84 18 141/89 H 95 04/17/18 11:35 93 H 18 141/89 H 97 04/17/18 11:30 93 H 18 156/98 H 99 04/17/18 11:15 92 H 18 177/108 H 96 04/17/18 08:00 75 04/17/18 07:20 62 18 98 04/17/18 06:52 36.8 C 72 20 136/77 96 04/17/18 04:40 36.8 C 87 20 147/82 H 97 04/17/18 02:12 92 H 18 99 04/16/18 23:37 36.9 C 87 20 137/87 100 04/16/18 19:35 78 18 96 04/16/18 19:17 36.5 C 90 18 145/70 H 94 04/16/18 16:53 82 20 95 04/16/18 15:37 90 04/16/18 14:41 37.0 C 83 18 157/90 H 99 04/16/18 13:42 78 18 96 Recovery Score Activity: Moves 4 extremities Respiration: Deep Breath/Cough Circulation: +/-20-49% PreAnes Value Consciousness: Fully Awake Oxygen Saturation: O2 needed for >90% Post Anesthesia Score: 8 Discharge Sedation Level of Care: Fast Track Phase II Post Sedation Plan On clinical assessment, the patient appears to have tolerated the sedation without complications. Patient is recovering as anticipated. Patient will continue to be monitored by nursing and may be discharged when sedation discharge criteria are met per below protocol. Upon Completions of procedure and additional 15 minutes continue every 5 minute vital signs and the P.A.R. score; then discharge to a Phase I or Fast Track to Phase II per the following guidelines: * Discharge Patient to appropriate Phase II area if PAR is 8 or greater or return to pre- procedure baseline. The post - procedure orders will be as directed. * If PAR score is less than 8 or not return to pre-procedure baseline then patient will follow Phase I monitoring till PAR is reached for Phase II. The Phase I may be done in procedure room or may call to secure a Phase I area. * If naloxone or flumazenil are used for reversal, hold in Phase I for continued monitoring from when last reversal dose was given for a minimum of 60 minutes or longer pending the nurse and/or physician discretion of patient condition before discharge to Phase II. Please call the Sedation Physician to re-evaluate and complete post-note for discharge to Phase II area. Do NOT discharge from procedure sedation or Phase 1 until post- sedation evaluation note is complete by procedure /sedation MD Sedation Discharge Instructions to be given to the patient at discharge to home.
--- NOTE | 2018-04-17 12:05 | Post Operative Brief Note ---
Immediate Post Op Note v1 Date of Surgery April 17, 2018 Pre & Post Diagnosis Operation Date: 04/17/18 14:00 Pre-Op Diagnosis: Purulent Mucoid Bronchitis Post-Op Diagnosis: Purulent Mucoid Bronchitis Procedure Operation Date: 04/17/18 14:00 Actual Procedures p Bronchoscopy Radiology(Bilateral) - Jose Carlos Casper MD Surgeon Jose Carlos Casper MD [employer] none Estimated Blood Loss 0 Findings Consistent with Post-Op Diagnosis Chronic Mucopurulent Bronchitis
[2018-04-17] MEDS: CHOLECALCIFEROL 1,000 UNITS TAB PO SCH ×2 (13:52→20:33)
[2018-04-17] MEDS: MONTELUKAST SODIUM 10 MG TABLET PO SCH (13:52)
[2018-04-17] MEDS: FUROSEMIDE 20 MG TAB PO SCH (13:52)
[2018-04-17] MEDS: BENZONATATE 100 MG CAPSULE PO PRN ×2 (13:52→21:57)
[2018-04-17] MEDS: predniSONE 20 MG TAB PO SCH (13:53)
[2018-04-17] MEDS: levoFLOXacin 500 MG TAB PO SCH (13:53)
[2018-04-17] MEDS: ENOXAPARIN INJ 30 MG/0.3 ML SYR SQ SCH ×2 (13:54→20:50)
[2018-04-17] MEDS: PANTOprazole 40 MG TAB PO SCH ×2 (13:54→20:33)
[2018-04-17] MEDS: POTASSIUM CHLORIDE 20 MEQ TABCR PO SCH (13:55)
[2018-04-17] MEDS: guaiFENesin 600 MG TABCR PO SCH ×2 (13:56→20:34)
[2018-04-17] MEDS: LORazepam 1 MG TAB PO PRN ×2 (14:01→20:48)
[2018-04-17] MEDS: ACETAMINOPHEN 325 MG TAB PO PRN (14:01)
--- NOTE | 2018-04-17 16:05 | Hospitalist Progress Note ---
Date of Service April 17, 2018 Assessment & Plan (1) Respiratory failure, acute and chronic: Presented with hypoxia cough: Acute on chronic respiratory failure Secondary to COPD exacerbation Baseline advanced COPD Gold stage III On chronic Oxygen dependency Past Tobacco abuse CTA: No pulmonary emboli identified. No consolidation. No thoracic aortic dissection. Continue Bronchodilators, steroids, Abx On levaquin Day 5/5 Supplemental Oxygen as needed Appreciate Pulmnology Input Status post bronchoscopy today Showed purulent mucoid secretions Per pulmonology, recommend to complete 5 days of Levaquin, steroid changed to oral prednisone Hyperglycemia Likely 2/2 steroids A1C:5.6 monitor GERD: Continue PPI Chronic anemia Hb at baseline monitor (2) Renal cyst: H/O Renal Cyst Renal USD:No acute process DVT Px: Lovenox SQ Code Status Full code Disposition: Expect to be discharged home when medically stable Subjective Very tired, Had bronchoscopy done earlier today Does not feel her cough, shortness of breath has improved Continues to have coarse nonproductive cough No fever or chills Denies of any chest pain or chest Physical Exam 2 Vital Signs (Past 24 Hours): Last Vital Signs Temp 36.6 C 04/17/18 15:55 Pulse 81 04/17/18 15:55 Resp 18 04/17/18 15:55 BP 128/75 04/17/18 15:55 Pulse Ox 98 04/17/18 15:55 Constitutional: WD/WN, vitals as above no acute distress Eyes: PERRL, conjunctivae normal, anicteric sclerae ENMT: external ear and nose normal, oropharynx normal Neck: trachea midline, no thyromegaly Respiratory: normal respiratory effort and + cough (Coarse nonproductive) Auscultation: + crackles (Coarse crackle/wheeze bilateral), + rales and + wheezes Cardiovascular: Rate/Rhythm: regular rate and regular rhythm Heart Sounds: normal S1 and normal S2 Gastrointestinal (Abdomen): normal bowel sounds, soft, nontender, no hepatosplenomegaly Musculoskeletal: no cyanosis or clubbing, extremities motor strength 5/5 Skin: no rashes, warm and dry Neurologic: PERRL, EOMI, accommodation nl, no face palsy, no dysarthria Psychiatric: A+Ox3, euthymic affect
[2018-04-17] MEDS ORDERED: ALBUT/IPRATROP 3MG/0.5MG NEB 3 ML VIAL INH PRN (17:43)
[2018-04-17] MEDS ORDERED: BUDESONIDE 0.5 MG/2 ML VIAL (PULMICORT) NEB PRN (17:43)
[2018-04-17] MEDS: GUAIFENESIN/CODEINE 100MG/10MG 5ML UDC PO PRN (18:20)
[2018-04-17] MEDS: ASCORBIC ACID 500 MG TAB PO SCH (20:29)
[2018-04-17] MEDS: SERTRALINE HCL 50 MG TABLET PO SCH (20:30)
[2018-04-17] MEDS: ATORVASTATIN 10 MG TAB PO SCH (20:33)
[2018-04-17] MEDS: TRAMADOL HCL 50 MG TABLET PO PRN (20:48)
[2018-04-17] MEDS: ALBUTEROL HFA 8 GM INHALER INH PRN (21:57)
--- NOTE | 2018-04-17 22:22 | Operative Report ---
DATE OF OPERATION: 04/17/2018 TIME: 1200 hours. PROCEDURE: Fiberoptic bronchoscopy with bronchoalveolar lavage. INDICATIONS: Persistent cough refractory to aggressive out and inpatient therapy in a patient with chronic bronchitis. ANESTHESIA PREOPERATIVELY: None. ANESTHESIA DURING PROCEDURE: 5 mg IV Versed, 100 mcg IV fentanyl, 20 mL 2% Xylocaine spray above and below the cords, 4% viscous Xylocaine intranasally. DESCRIPTION OF PROCEDURE: Moderate conscious sedation was administered at 11:35 and completed at 11:50. Fiberoptic bronchoscope was inserted into the right naris with minimal difficulty and passed to the level of the true vocal cords. The cords appear to approximate normally with phonation without evidence for lesions or paralysis. The area was anesthetized with 2% Xylocaine spray and the scope was then introduced in the trachea and right and left tracheobronchial tree. The cielo was sharp. [id number] endoscopic dynamic airway collapse was seen involving the right main stem bronchus just below the cielo (EDAC). The right main stem bronchus was explored and no endobronchial lesion seen. Right upper lobe at the apical posterior and anterior segments, bronchus intermedius, right middle lobe in the medial and lateral segments and all basilar segments of right lower lobe were found to be free of endobronchial lesions. Thick mucoviscous inspissated mucus was lavaged from virtually all of the segmental bronchi involving the right lower lobe bronchus and the aspirate was sent for appropriate studies. Mucus pitting with bronchial crypts and clefts were visible throughout the right tracheobronchial tree consistent with the diagnosis of chronic bronchitis. The left tracheobronchial tree was explored and no endobronchial lesions were seen. Left upper lobe with the apical posterior and anterior segments, lingual subdivision, and left lower lobe were found to be free of endobronchial lesions down to subsegmental bronchi. Left lower lobe was copiously lavaged with normosol and similar inspissated mucus was lavaged and aspirated until clear. The procedure was terminated. The patient was given a nebulizer treatment with Xopenex 1.25 mg and transferred to the medical floor, hemodynamically stable. No signs of respiratory compromise. Will await microbiological and cytologic examination of the bronchial washings. I attest to the content of the Intraoperative Record and any orders documented therein. Any exception s are noted below.
[2018-04-18] MEDS: GUAIFENESIN/CODEINE 100MG/10MG 5ML UDC PO PRN ×2 (00:28→20:23)
[2018-04-18] MEDS: IPRATROPIUM BROMIDE NEB SOLN 0.02% 2.5 ML VIAL INH SCH ×4 (02:20→20:16)
[2018-04-18] MEDS: LEVALBUTEROL 1.25MG/0.5ML NEB INH SCH ×4 (02:20→20:16)
[2018-04-18] MEDS: ACETYLCYSTEINE 10% INHAL SOLN **DISPENSED FROM RESP. INH SCH ×4 (06:57→20:12)
[2018-04-18] MEDS: BUDESONIDE 0.5 MG/2 ML VIAL (PULMICORT) NEB SCH ×2 (06:58→20:16)
[2018-04-18] MEDS: CLOTRIMAZOLE 10 MG TROCHE BUCCAL SCH ×5 (07:49→23:38)
[2018-04-18] MEDS: SODIUM CHLORIDE 0.9% 1000ML 1,000 ML IV SCH (07:50)
[2018-04-18] MEDS: BENZONATATE 100 MG CAPSULE PO PRN (07:50)
[2018-04-18] MEDS: ALBUTEROL HFA 8 GM INHALER INH PRN (07:51)
[2018-04-18] MEDS: MONTELUKAST SODIUM 10 MG TABLET PO SCH (07:51)
[2018-04-18] MEDS: PANTOprazole 40 MG TAB PO SCH ×2 (07:51→20:24)
[2018-04-18] MEDS: POTASSIUM CHLORIDE 20 MEQ TABCR PO SCH (07:52)
[2018-04-18] MEDS: predniSONE 20 MG TAB PO SCH (07:52)
[2018-04-18] MEDS: CHOLECALCIFEROL 1,000 UNITS TAB PO SCH ×2 (07:52→20:24)
[2018-04-18] MEDS: FUROSEMIDE 20 MG TAB PO SCH (07:53)
[2018-04-18] MEDS: guaiFENesin 600 MG TABCR PO SCH ×2 (07:53→20:24)
[2018-04-18] MEDS: INSULIN ASPART 100 UNITS/ML 3 ML PEN SC SCH ×4 (07:54→20:25)
[2018-04-18] MEDS: LORazepam 1 MG TAB PO PRN ×2 (07:56→20:23)
[2018-04-18] MEDS: ACETAMINOPHEN 325 MG TAB PO PRN (07:56)
[2018-04-18] MEDS: levoFLOXacin 500 MG TAB PO SCH (10:45)
--- NOTE | 2018-04-18 17:54 | Hospitalist Progress Note ---
Date of Service April 18, 2018 Assessment & Plan (1) Respiratory failure, acute and chronic: Secondary to COPD exacerbation Baseline advanced COPD Gold stage III On chronic Oxygen dependency Past Tobacco abuse Very slow in improvement Presented with hypoxia cough: Acute on chronic respiratory failure CTA of chest: No pulmonary emboli identified. No consolidation. No thoracic aortic dissection. Continue Bronchodilators, steroids, Abx Completed Levaquin Day 5/5 Supplemental Oxygen as needed Appreciate Pulmnology Input Status post bronchoscopy on 04/17/2018 Showed purulent mucoid secretions Per pulmonology, recommend to complete 5 days of Levaquin, steroid changed to oral prednisone Patient reports continued shortness of breath, dyspnea on exertion, and cough Counseling provided: Given advanced liver condition, it will take several days before patient started to experience improvement Pulmonology following closely Hyperglycemia Likely 2/2 steroids A1C:5.6 monitor GERD: Continue PPI Chronic anemia Hb at baseline monitor (2) Renal cyst: H/O Renal Cyst Renal ultrasound:No acute process /no renal mass or cyst noted DVT Px: Lovenox SQ Code Status Full code Disposition: Expect to be discharged home when medically stable Subjective Continues to have productive cough with purulence sputum, significant dyspnea on exertion Feels wiped out with minimum activity No fever or chills [id number] present at bedside, Patient reports she feels the same with cough, chest congestion after bronchoscopy, does not feel any improvement Physical Exam 2 Vital Signs (Past 24 Hours): Last Vital Signs Temp 36.9 C 04/18/18 14:28 Pulse 89 04/18/18 14:28 Resp 20 04/18/18 14:28 BP 148/84 H 04/18/18 14:28 Pulse Ox 97 04/18/18 14:28 Constitutional: WD/WN, vitals as above no acute distress Eyes: PERRL, conjunctivae normal, anicteric sclerae ENMT: external ear and nose normal, oropharynx normal Neck: trachea midline, no thyromegaly Respiratory: normal respiratory effort and + cough (Coarse nonproductive) Auscultation: + crackles (Coarse crackle/wheeze bilateral), + rales and + wheezes Cardiovascular: Rate/Rhythm: regular rate and regular rhythm Heart Sounds: normal S1 and normal S2 Gastrointestinal (Abdomen): normal bowel sounds, soft, nontender, no hepatosplenomegaly Musculoskeletal: no cyanosis or clubbing, extremities motor strength 5/5 Skin: no rashes, warm and dry Neurologic: PERRL, EOMI, accommodation nl, no face palsy, no dysarthria Psychiatric: A+Ox3, euthymic affect
[2018-04-18] MEDS: TRAMADOL HCL 50 MG TABLET PO PRN (20:23)
[2018-04-18] MEDS: ATORVASTATIN 10 MG TAB PO SCH (20:24)
[2018-04-18] MEDS: ENOXAPARIN INJ 30 MG/0.3 ML SYR SQ SCH (20:25)
[2018-04-18] MEDS: ASCORBIC ACID 500 MG TAB PO SCH (20:25)
[2018-04-18] MEDS: SERTRALINE HCL 50 MG TABLET PO SCH (20:26)
[2018-04-19] MEDS: IPRATROPIUM BROMIDE NEB SOLN 0.02% 2.5 ML VIAL INH SCH ×4 (01:44→19:24)
[2018-04-19] MEDS: LEVALBUTEROL 1.25MG/0.5ML NEB INH SCH ×4 (01:44→19:24)
[2018-04-19] MEDS: GUAIFENESIN/CODEINE 100MG/10MG 5ML UDC PO PRN ×2 (04:04→20:37)
[2018-04-19] MEDS: BUDESONIDE 0.5 MG/2 ML VIAL (PULMICORT) NEB SCH ×2 (07:06→19:24)
[2018-04-19] MEDS: ACETYLCYSTEINE 10% INHAL SOLN **DISPENSED FROM RESP. INH SCH ×3 (07:07→19:24)
[2018-04-19] MEDS: LORazepam 1 MG TAB PO PRN ×2 (08:12→20:38)
[2018-04-19] MEDS: CLOTRIMAZOLE 10 MG TROCHE BUCCAL SCH ×5 (08:12→21:58)
[2018-04-19] MEDS: ACETAMINOPHEN 325 MG TAB PO PRN (08:13)
[2018-04-19] MEDS: POTASSIUM CHLORIDE 20 MEQ TABCR PO SCH (08:15)
[2018-04-19] MEDS: FUROSEMIDE 20 MG TAB PO SCH (08:16)
[2018-04-19] MEDS: guaiFENesin 600 MG TABCR PO SCH ×2 (08:16→20:28)
[2018-04-19] MEDS: predniSONE 20 MG TAB PO SCH (08:17)
[2018-04-19] MEDS: PANTOprazole 40 MG TAB PO SCH ×2 (08:17→20:29)
[2018-04-19] MEDS: CHOLECALCIFEROL 1,000 UNITS TAB PO SCH ×2 (08:18→20:29)
[2018-04-19] MEDS: MONTELUKAST SODIUM 10 MG TABLET PO SCH (08:18)
[2018-04-19] MEDS: INSULIN ASPART 100 UNITS/ML 3 ML PEN SC SCH ×4 (08:20→20:29)
[2018-04-19] MEDS: SODIUM CHLORIDE 0.9% 1000ML 1,000 ML IV SCH (08:21)
[2018-04-19] MEDS: BENZONATATE 100 MG CAPSULE PO PRN (10:37)
--- NOTE | 2018-04-19 18:41 | Hospitalist Progress Note ---
Date of Service April 19, 2018 Assessment & Plan (1) Respiratory failure, acute and chronic: Respiratory status remains unchanged Secondary to COPD exacerbation Baseline advanced COPD Gold stage III On chronic Oxygen dependency Past Tobacco abuse Presented with hypoxia /cough: Acute on chronic respiratory failure CTA of chest: No pulmonary emboli identified. No consolidation. No thoracic aortic dissection. Continue Bronchodilators, steroids, Abx Completed Levaquin Day 5/5 Supplemental Oxygen as needed Appreciate Pulmnology Input Status post bronchoscopy on 04/17/2018 Showed purulent mucoid secretions Per pulmonology, recommend to complete 5 days of Levaquin, steroid changed to oral prednisone Patient reports continued shortness of breath, dyspnea on exertion, and cough Counseling provided: Given advanced lung condition, it will take several days before patient started to experience improvement Pulmonology following closely Hyperglycemia Likely 2/2 steroids A1C:5.6 monitor GERD: Continue PPI Chronic anemia Hb at baseline monitor (2) Renal cyst: H/O Renal Cyst Renal ultrasound:No acute process /no renal mass or cyst noted DVT Px: Lovenox SQ Code Status Full code Disposition: Expect to be discharged home when medically stable Subjective No improvement on cough, feels thick secretion back of the throat but cannot get it out Similar shortness of breath, No fever or chills Physical Exam 2 Vital Signs (Past 24 Hours): Last Vital Signs Temp 36.7 C 04/19/18 16:00 Pulse 79 04/19/18 16:00 Resp 22 04/19/18 16:00 BP 124/74 04/19/18 16:00 Pulse Ox 98 04/19/18 16:00 Constitutional: WD/WN, vitals as above no acute distress Eyes: PERRL, conjunctivae normal, anicteric sclerae ENMT: external ear and nose normal, oropharynx normal Neck: trachea midline, no thyromegaly Respiratory: normal respiratory effort and + cough (Coarse nonproductive) Auscultation: + crackles (Coarse crackle/wheeze bilateral), + rales and + wheezes Cardiovascular: Rate/Rhythm: regular rate and regular rhythm Heart Sounds: normal S1 and normal S2 Gastrointestinal (Abdomen): normal bowel sounds, soft, nontender, no hepatosplenomegaly Musculoskeletal: no cyanosis or clubbing, extremities motor strength 5/5 Skin: no rashes, warm and dry Neurologic: PERRL, EOMI, accommodation nl, no face palsy, no dysarthria Psychiatric: A+Ox3, euthymic affect
[2018-04-19] MEDS: ENOXAPARIN INJ 30 MG/0.3 ML SYR SQ SCH (20:28)
[2018-04-19] MEDS: ATORVASTATIN 10 MG TAB PO SCH (20:30)
[2018-04-19] MEDS: SERTRALINE HCL 50 MG TABLET PO SCH (20:30)
[2018-04-19] MEDS: ASCORBIC ACID 500 MG TAB PO SCH (20:31)
[2018-04-19] MEDS: TRAMADOL HCL 50 MG TABLET PO PRN (20:37)
[2018-04-20] MEDS: LEVALBUTEROL 1.25MG/0.5ML NEB INH SCH ×4 (02:07→20:37)
[2018-04-20] MEDS: IPRATROPIUM BROMIDE NEB SOLN 0.02% 2.5 ML VIAL INH SCH ×4 (02:07→20:37)
[2018-04-20] MEDS: BUDESONIDE 0.5 MG/2 ML VIAL (PULMICORT) NEB SCH ×2 (06:49→20:37)
[2018-04-20] MEDS: ACETYLCYSTEINE 10% INHAL SOLN **DISPENSED FROM RESP. INH SCH ×2 (07:28→07:39)
[2018-04-20] MEDS: SODIUM CHLORIDE 0.9% 1000ML 1,000 ML IV SCH (08:02)
[2018-04-20] MEDS: INSULIN ASPART 100 UNITS/ML 3 ML PEN SC SCH ×4 (08:04→20:59)
[2018-04-20] MEDS: CHOLECALCIFEROL 1,000 UNITS TAB PO SCH ×2 (08:04→20:59)
[2018-04-20] MEDS: FUROSEMIDE 20 MG TAB PO SCH (08:05)
[2018-04-20] MEDS: POTASSIUM CHLORIDE 20 MEQ TABCR PO SCH (08:05)
[2018-04-20] MEDS: MONTELUKAST SODIUM 10 MG TABLET PO SCH (08:05)
[2018-04-20] MEDS: PANTOprazole 40 MG TAB PO SCH ×2 (08:05→20:58)
[2018-04-20] MEDS: CLOTRIMAZOLE 10 MG TROCHE BUCCAL SCH ×5 (08:05→22:21)
[2018-04-20] MEDS: guaiFENesin 600 MG TABCR PO SCH ×2 (08:05→20:58)
[2018-04-20] MEDS: predniSONE 20 MG TAB PO SCH (08:05)
[2018-04-20] MEDS: GUAIFENESIN/CODEINE 100MG/10MG 5ML UDC PO PRN ×2 (08:11→21:09)
[2018-04-20] MEDS: ACETAMINOPHEN 325 MG TAB PO PRN (08:11)
[2018-04-20] MEDS: LORazepam 1 MG TAB PO PRN ×2 (08:12→21:08)
[2018-04-20] MEDS: ALBUTEROL HFA 8 GM INHALER INH PRN (09:01)
[2018-04-20] MEDS ORDERED: SODIUM CHLOR 7% 4 ML NEB INH SCH (10:40)
[2018-04-20] MEDS: BENZONATATE 100 MG CAPSULE PO SCH ×2 (13:01→20:58)
[2018-04-20] MEDS: SODIUM CHLOR 7% 4 ML NEB INH SCH ×2 (13:57→20:37)
--- NOTE | 2018-04-20 15:37 | Hospitalist Progress Note ---
Date of Service April 20, 2018 Assessment & Plan (1) Respiratory failure, acute and chronic: Respiratory status remains unchanged Secondary to COPD exacerbation Baseline advanced COPD Gold stage III On chronic Oxygen dependency Past Tobacco abuse Presented with hypoxia /cough: Acute on chronic respiratory failure Continue respiratory therapy: Vibration vest , hypertonic saline neb on mucomyst CTA of chest: No pulmonary emboli identified. No consolidation. No thoracic aortic dissection. Continue Bronchodilators, steroids, Abx Completed Levaquin Day 5/5 Supplemental Oxygen as needed Appreciate Pulmnology Input Status post bronchoscopy on 04/17/2018 Showed purulent mucoid secretions Per pulmonology, recommend to complete 5 days of Levaquin, steroid changed to oral prednisone Patient reports continued shortness of breath, dyspnea on exertion, and cough Counseling provided: Given advanced lung condition, it will take several days before patient started to experience improvement Pulmonology following closely Hyperglycemia Likely 2/2 steroids A1C:5.6 monitor GERD: Continue PPI Chronic anemia Hb at baseline monitor (2) Renal cyst: H/O Renal Cyst Renal ultrasound:No acute process /no renal mass or cyst noted DVT Px: Lovenox SQ Code Status Full code Disposition: Expect to be discharged home when medically stable Subjective Had uneventful night, Nonproductive cough, but feels secretion is stuck on the back of the throat, unable to get it out No fever or chills Vibration test ordered, We will order hypertonic saline nebulizer treatment Physical Exam 2 Vital Signs (Past 24 Hours): Last Vital Signs Temp 36.8 C 04/20/18 07:00 Pulse 90 04/20/18 13:58 Resp 16 04/20/18 13:58 BP 121/61 04/20/18 07:00 Pulse Ox 97 04/20/18 13:58 Constitutional: WD/WN, vitals as above no acute distress Eyes: PERRL, conjunctivae normal, anicteric sclerae ENMT: external ear and nose normal, oropharynx normal Neck: trachea midline, no thyromegaly Respiratory: normal respiratory effort and + cough (Coarse nonproductive) Auscultation: + crackles (Coarse crackle/wheeze bilateral), + rales and + wheezes Cardiovascular: Rate/Rhythm: regular rate and regular rhythm Heart Sounds: normal S1 and normal S2 Gastrointestinal (Abdomen): normal bowel sounds, soft, nontender, no hepatosplenomegaly Musculoskeletal: no cyanosis or clubbing, extremities motor strength 5/5 Skin: no rashes, warm and dry Neurologic: PERRL, EOMI, accommodation nl, no face palsy, no dysarthria Psychiatric: A+Ox3, euthymic affect
[2018-04-20] MEDS: ENOXAPARIN INJ 30 MG/0.3 ML SYR SQ SCH (20:57)
[2018-04-20] MEDS: ASCORBIC ACID 500 MG TAB PO SCH (20:58)
[2018-04-20] MEDS: ATORVASTATIN 10 MG TAB PO SCH (20:58)
[2018-04-20] MEDS: SERTRALINE HCL 50 MG TABLET PO SCH (20:58)
[2018-04-20] MEDS ORDERED: SODIUM CHLORIDE 0.65% NA SOLN 45 ML (OCEAN) PRN (21:02)
[2018-04-20] MEDS ORDERED: SODIUM CHLORIDE 0.65% NA SOLN 45 ML (OCEAN) ONE (21:06)
[2018-04-20] MEDS: TRAMADOL HCL 50 MG TABLET PO PRN (21:08)
[2018-04-21] MEDS: LEVALBUTEROL 1.25MG/0.5ML NEB INH SCH ×4 (01:42→19:13)
[2018-04-21] MEDS: IPRATROPIUM BROMIDE NEB SOLN 0.02% 2.5 ML VIAL INH SCH ×4 (01:42→19:13)
[2018-04-21] MEDS: CLOTRIMAZOLE 10 MG TROCHE BUCCAL SCH ×5 (06:09→20:44)
[2018-04-21] MEDS: TRAMADOL HCL 50 MG TABLET PO PRN ×2 (06:27→20:42)
[2018-04-21] MEDS: BUDESONIDE 0.5 MG/2 ML VIAL (PULMICORT) NEB SCH ×2 (07:20→19:12)
[2018-04-21] MEDS: SODIUM CHLOR 7% 4 ML NEB INH SCH ×4 (07:20→19:13)
[2018-04-21] MEDS: SODIUM CHLORIDE 0.9% 1000ML 1,000 ML IV SCH (08:22)
[2018-04-21] MEDS: INSULIN ASPART 100 UNITS/ML 3 ML PEN SC SCH ×4 (08:23→20:41)
[2018-04-21] MEDS: LORazepam 1 MG TAB PO PRN ×2 (08:26→20:42)
[2018-04-21] MEDS: MONTELUKAST SODIUM 10 MG TABLET PO SCH (08:27)
[2018-04-21] MEDS: POTASSIUM CHLORIDE 20 MEQ TABCR PO SCH (08:27)
[2018-04-21] MEDS: GUAIFENESIN/CODEINE 100MG/10MG 5ML UDC PO PRN ×2 (08:27→20:42)
[2018-04-21] MEDS: BENZONATATE 100 MG CAPSULE PO SCH ×3 (08:28→20:42)
[2018-04-21] MEDS: PANTOprazole 40 MG TAB PO SCH ×2 (08:28→20:42)
[2018-04-21] MEDS: FUROSEMIDE 20 MG TAB PO SCH (08:28)
[2018-04-21] MEDS: predniSONE 20 MG TAB PO SCH (08:28)
[2018-04-21] MEDS: guaiFENesin 600 MG TABCR PO SCH ×2 (08:28→20:43)
[2018-04-21] MEDS: CHOLECALCIFEROL 1,000 UNITS TAB PO SCH ×2 (08:43→20:42)
--- NOTE | 2018-04-21 13:38 | Hospitalist Progress Note ---
Date of Service April 21, 2018 Assessment & Plan (1) Respiratory failure, acute and chronic: Secondary to COPD exacerbation Baseline advanced COPD Gold stage III On chronic Oxygen dependency Past Tobacco abuse Presented with hypoxia /cough: Acute on chronic respiratory failure Continued respiratory therapy: Vibration vest , hypertonic saline neb Very slow improvement Patient had multiple readmission in the past, worried of getting discharged to [place] CTA of chest: No pulmonary emboli identified. No consolidation. No thoracic aortic dissection. Continue Bronchodilators, steroids, Abx Appreciate Pulmnology Input Status post bronchoscopy on 04/17/2018 Showed purulent mucoid secretions Per pulmonology, recommend to complete 5 days of Levaquin, Completed Levaquin Day 5/5 steroid changed to oral prednisone 60 mg daily, will need very slow taper Patient reports continued shortness of breath, dyspnea on exertion, and cough Counseling provided: Given advanced lung condition, it will take several days before patient started to experience improvement Pulmonology following closely Hyperglycemia Likely 2/2 steroids A1C:5.6 monitor GERD: Continue PPI Chronic anemia Hb at baseline monitor (2) Renal cyst: H/O Renal Cyst Renal ultrasound:No acute process /no renal mass or cyst noted DVT Px: Lovenox SQ Code Status Full code Disposition: Expect to be discharged home when medically stable Subjective Patient started on hypertonic saline nebulizer treatment yesterday Reports that initial first treatment she felt -she could clear thick bronchial secretions Breathing improved Later during the day cough became nonproductive, Woke up middle of the night with coughing's spell Still has significant dyspnea on exertion, Does not feel she is back to her baseline yet Not in a hurry to get discharged from hospital, worried that she will decline and will get readmitted in few days of discharge Patient remains afebrile Physical Exam 2 Vital Signs (Past 24 Hours): Last Vital Signs Temp 36.7 C 04/21/18 08:00 Pulse 91 H 04/21/18 08:00 Resp 18 04/21/18 08:00 BP 124/74 04/21/18 08:00 Pulse Ox 98 04/21/18 08:00 Constitutional: WD/WN, vitals as above no acute distress Eyes: PERRL, conjunctivae normal, anicteric sclerae ENMT: external ear and nose normal, oropharynx normal Neck: trachea midline, no thyromegaly Respiratory: normal respiratory effort Auscultation: + diminished lung sounds; no crackles, no rales and no wheezes Cardiovascular: Rate/Rhythm: regular rate and regular rhythm Heart Sounds: normal S1 and normal S2 Gastrointestinal (Abdomen): normal bowel sounds, soft, nontender, no hepatosplenomegaly Musculoskeletal: no cyanosis or clubbing, extremities motor strength 5/5 Skin: no rashes, warm and dry Neurologic: PERRL, EOMI, accommodation nl, no face palsy, no dysarthria Psychiatric: A+Ox3, euthymic affect
[2018-04-21] MEDS: ACETAMINOPHEN 325 MG TAB PO PRN (15:37)
[2018-04-21] MEDS: ASCORBIC ACID 500 MG TAB PO SCH (20:42)
[2018-04-21] MEDS: SERTRALINE HCL 50 MG TABLET PO SCH (20:42)
[2018-04-21] MEDS: ENOXAPARIN INJ 30 MG/0.3 ML SYR SQ SCH (20:43)
[2018-04-21] MEDS: ATORVASTATIN 10 MG TAB PO SCH (20:43)
[2018-04-21] MEDS: ONDANSETRON 4 MG TAB PO PRN (23:26)
[2018-04-22] MEDS: LEVALBUTEROL 1.25MG/0.5ML NEB INH SCH ×4 (02:09→19:59)
[2018-04-22] MEDS: IPRATROPIUM BROMIDE NEB SOLN 0.02% 2.5 ML VIAL INH SCH ×4 (02:09→20:00)
[2018-04-22] MEDS: SODIUM CHLOR 7% 4 ML NEB INH SCH ×4 (02:10→20:00)
[2018-04-22] MEDS: CLOTRIMAZOLE 10 MG TROCHE BUCCAL SCH ×5 (06:24→22:40)
[2018-04-22] MEDS: SODIUM CHLORIDE 0.9% 1000ML 1,000 ML IV SCH (07:04)
[2018-04-22] MEDS: BUDESONIDE 0.5 MG/2 ML VIAL (PULMICORT) NEB SCH ×2 (07:12→20:00)
[2018-04-22] MEDS: POTASSIUM CHLORIDE 20 MEQ TABCR PO SCH (07:23)
[2018-04-22] MEDS: predniSONE 20 MG TAB PO SCH (07:24)
[2018-04-22] MEDS: CHOLECALCIFEROL 1,000 UNITS TAB PO SCH ×2 (07:24→22:37)
[2018-04-22] MEDS: guaiFENesin 600 MG TABCR PO SCH ×2 (07:24→22:35)
[2018-04-22] MEDS: MONTELUKAST SODIUM 10 MG TABLET PO SCH (07:24)
[2018-04-22] MEDS: PANTOprazole 40 MG TAB PO SCH ×2 (07:25→22:36)
[2018-04-22] MEDS: BENZONATATE 100 MG CAPSULE PO SCH ×3 (07:25→23:00)
[2018-04-22] MEDS: FUROSEMIDE 20 MG TAB PO SCH (07:25)
[2018-04-22] MEDS: LORazepam 1 MG TAB PO PRN ×2 (07:30→22:33)
[2018-04-22] MEDS: GUAIFENESIN/CODEINE 100MG/10MG 5ML UDC PO PRN ×2 (07:30→22:33)
[2018-04-22] MEDS: ACETAMINOPHEN 325 MG TAB PO PRN (07:31)
[2018-04-22] MEDS: INSULIN ASPART 100 UNITS/ML 3 ML PEN SC SCH ×4 (08:53→22:36)
[2018-04-22] MEDS: TRAMADOL HCL 50 MG TABLET PO PRN ×2 (10:12→22:33)
--- NOTE | 2018-04-22 11:41 | Progress Note ---
DATE: 04/22/2018 PULMONARY PROGRESS NOTE TIME: 11:00 a.m. SUBJECTIVE: The patient is generally improved. Her cough is not nearly as severe as it had been or as it usually is. The cough is nonproductive. She did have bronchoscopy done on April 17. She does not think it changed anything dramatically. She has been walking somewhat in her room as far as her oxygen would reach. She is not having any chest pains. OBJECTIVE: GENERAL: The patient appears comfortable at rest. She did not cough during this exam. VITAL SIGNS: Temperature is 36.5. Blood pressure 135/75. HEENT: Pupils were reactive. Mouth exam showed dentures top and bottom. NECK: Palpation of the neck reveals no lymph nodes. CHEST: Cardiac rate was 77 per minute. She did have occasional extrasystoles on exam. LUNGS: Lung becerra revealed decreased breath sounds. No active wheezes, rales, or rhonchi heard. Respiratory rate 20. Saturation 98% on 2 liters. EXTREMITIES: Showed no cyanosis, clubbing or edema. LABORATORY DATA: Blood sugar this morning was 86. That appears to be the only lab she has had on this date. Reviewing labs, it is notable that in the past on 10/12/2017, the serum IgG level was decreased to 558, lower limit of normal 700. IMPRESSION: 1. Chronic obstructive pulmonary disease exacerbation - improved. 2. Tracheomalacia. 3. Right middle lobe 8 mm lung nodule - stable over several years. 4. Chronic cough. 5. Decreased IgG. COMMENTS AND RECOMMENDATIONS: The patient appears almost at her baseline. She remains on numerous modalities including montelukast, Mucinex, levalbuterol, ipratropium, pantoprazole, ranitidine, Lasix, budesonide by nebulizer, prednisone 60 mg, and enoxaparin. I think it is reasonable to recheck her IgG level to see if there has been further decline. I believe she should be ready for discharge soon when desired. She of course will need to follow up in the pulmonary office.
--- NOTE | 2018-04-22 14:48 | Infectious Disease Consult ---
Date of Consultation April 22, 2018 Assessment & Plan (1) Fungal pneumonia: Patient with severe PIP COPD with exacerbation with positive BAL fluid culture for fungus. Given improvement without specific antifungal therapy, and lack of significant infiltration on chest x-ray, suspect that this represents colonization because of previous steroid use and antibiotic use. Would favor continuing on present therapy and observing clinical response pending final identification of isolate. Discussed with hospitalist service. Will follow. (2) COPD exacerbation: History of Present Illness Reason for Consultation: Fungal growth in bronchial specimen Attending Physician: Valentine Ramirez MD History of Present Illness 68-year-old female with long history of COPD, on and off steroids for exacerbation, who was admitted to the hospital April 18 with 5-day history of progressively worsening cough, shortness of breath, dyspnea on exertion, with transient fever. Was started on steroids and levofloxacin and has shown slow improvement. CT scan of the chest, reviewed by me, shows no obvious infiltrate. Has undergone bronchoscopy with finding of large amount of inspissated mucus, and cultures are now reported positive for fungus. Patient has not had any significant fever. White count has been elevated but on steroids. No hemoptysis. Aspergillus antibodies negative. No other significant travel or exposure history. Allergies Allergy/AdvReac Type Severity Reaction Status Date / Time No Known Allergies Allergy Verified 04/12/18 20:53 Home Medications Home Medications Medication Instructions Recorded Confirmed Type atorvastatin 10 mg PO HS #0 10/21/15 04/15/18 History furosemide [Lasix] 20 mg PO QAM #0 10/21/15 04/15/18 History lorazepam See Label Instructions .ROUTE 10/21/15 04/15/18 History .COMPLEX #0 ranitidine HCl [Zantac] 150 mg PO Q12 #0 10/21/15 04/15/18 History potassium chloride 20 meq PO QAM #0 tab 12/26/15 04/15/18 History ascorbic acid (vitamin C) [Vitamin 500 mg PO DAILY #0 03/12/17 04/15/18 History C] ondansetron HCl [Zofran] 4 mg PO QID PRN #0 09/06/17 04/15/18 History budesonide 1 vial NEB BID PRN 30 Days #120 ml 10/10/17 04/15/18 History montelukast 10 mg PO DAILY #0 tab 10/10/17 04/15/18 History albuterol sulfate [Ventolin HFA] 2 puff INHALATION Q6H PRN 10/17/17 04/15/18 History nystatin 5 ml PO TID 10/17/17 04/15/18 History cholecalciferol (vitamin D3) 1,000 unit PO QPM 12/07/17 04/15/18 History [Vitamin D3] cholecalciferol (vitamin D3) 2,000 unit PO QAM 12/07/17 04/15/18 History [Vitamin D3] ipratropium-albuterol 3 ml INHALATION QID PRN 12/07/17 04/15/18 History ferrous sulfate See Label Instructions .ROUTE 02/15/18 04/15/18 History .COMPLEX tramadol 50 mg PO Q6H PRN 02/15/18 04/15/18 History benzonatate [Tessalon Perles] 100 mg PO BID PRN 03/21/18 04/15/18 History lnxstdxrvymrvn-svazyickvhrc-QZ 20 ml PO BID 03/21/18 04/15/18 History [Dimetapp DM Cold-Cough (PE)] docusate sodium [Dulcolax Stool See Label Instructions .ROUTE 03/21/18 04/15/18 History Softener (dss)] .COMPLEX pqcrevnjfay-hilgsomgz-hmwdyyxh 1 inh INHALATION DAILY 03/21/18 04/15/18 History [Trelegy Ellipta] methylprednisolone [Medrol] 3 tab PO QAM 03/21/18 04/15/18 History phenylephrine HCl [Sudafed PE] 10 mg PO BID 03/21/18 04/15/18 History sertraline [Zoloft] 150 mg PO HS 03/21/18 04/15/18 History pantoprazole 40 mg PO BID 04/12/18 04/12/18 History Patient History Medical History Chronic bronchitis Obstructive sleep apnea (Chronic) NOT USING MACHINE IBS (irritable bowel syndrome) (Chronic) Hyperlipidemia (Chronic) Thoracic aortic ectasia (Chronic) GERD (gastroesophageal reflux disease) (Chronic) COPD (chronic obstructive pulmonary disease) FOLLOWS WITH DR BOSWELL Chronic respiratory failure with hypoxia (Chronic) COPD, severe (Chronic) Osteoporosis (Chronic) Anxiety Aortic aneurysm Cancer VAGINAL Cyst of right kidney Depression PUD (peptic ulcer disease) Surgical History H/O cervical spine surgery H/O colonoscopy "09/25/2011- adenomatous polyps" H/O sinus surgery History of cataract surgery RIGHT AND LEFT Hx of adenoidectomy Hx of appendectomy Hx of cholecystectomy Hx of discectomy Hx of hysterectomy Hx of laparoscopy Hx of tonsillectomy Hx of tooth extraction S/P bronchoscopy " bronchoscopy by Dr. Abdi in July 2016- diffuse subsegmental airway collapse on both bronchial trees. Bronchoscopy by Dr. Davila in 05/2017 WNL posterior pharynx diffuse erythema and edema noted" On 12/14/16 13:18 Juliet Castrejon wrote " bronchoscopy by Dr. Abdi in July 2016- diffuse subsegmental airway collapse on both bronchial trees. 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 Other Information That Helps Us Care for You: No Feels Safe at Home: Yes Safety Concerns: Feels Safe At This Time Smoking Status: Former smoker Tobacco Type: cigarettes Smoking End Date: 4-5 years ago Hx Alcohol Use: No Hx Substance Use: Yes substance use type: sedatives Beliefs That Will Affect Care: None Communication Ability: Effective Review of Systems Constitutional: as per Subjective / HPI Eyes: no problem reported Ear, Nose, Mouth, Throat: no problem reported Respiratory: as per Subjective / HPI Cardiovascular: no problem reported Gastrointestinal: no problem reported Genitourinary (Female): no problem reported Musculoskeletal: no problem reported Integumentary: no problem reported Neurologic: no problem reported Psychiatric: no problem reported Endocrine: no problem reported Hematologic / Lymphatic: no problem reported Allergy / Immunological: no problem reported Physical Exam 2 Vital Signs (Past 24 Hours): Last Vital Signs Temp 36.5 C 04/22/18 08:15 Pulse 77 04/22/18 14:11 Resp 20 04/22/18 14:11 BP 135/75 04/22/18 08:15 Pulse Ox 98 04/22/18 14:11 Constitutional: WD/WN, vitals as above comfortable; no acute distress Eyes: PERRL, conjunctivae normal, anicteric sclerae ENMT: external ear and nose normal, oropharynx normal Neck: trachea midline, no thyromegaly neck nontender Respiratory: normal percussion; no respiratory distress and does not use accessory muscles Auscultation: + diminished lung sounds and + wheezes Cardiovascular: Rate/Rhythm: regular rate and regular rhythm Heart Sounds: normal S1 and normal S2; no gallop, no murmur and no cardiac rub Vessels: normal peripheral pulses; no JVD Gastrointestinal (Abdomen): normal bowel sounds, soft, nontender, no hepatosplenomegaly Musculoskeletal: no cyanosis or clubbing, extremities motor strength 5/5 Spine: thoracic spine normal to inspection and lumbar spine normal to inspection ; no cervical spinal tenderness Skin: no rashes, warm and dry normal turgor; no lesions Neurologic: patellar DTR's 2+ bilat, sensation intact no focal motor deficits Psychiatric: A+Ox3, euthymic affect Orientation: cooperative Lymphatic: no cervical or axillary lymphadenopathy no inguinal lymphadenopathy Results & Data Laboratory Results Laboratory Results - last 48 hr 04/20/18 04/20/18 04/21/18 16:46 20:09 07:27 POC Glucose 187 H 120 H 88 IgG 04/21/18 04/21/18 04/21/18 11:14 16:50 20:06 POC Glucose 113 H 173 H 115 H IgG 04/22/18 04/22/18 04/22/18 07:22 11:21 11:28 POC Glucose 86 166 H IgG 380.0 L Diagnostic Findings Microbiology 04/17/18 11:40 Bronch Wash,Right Lower Lobe Fungal Smear - Final 04/17/18 11:40 Bronch Wash,Right Lower Lobe Fungal Culture - Preliminary Fungus- ident.to follow 04/17/18 11:40 Bronch Wash,Right Lower Lobe Acid Fast Bacilli Smear - Final 04/17/18 11:40 Bronch Wash,Right Lower Lobe Acid Fast Bacilli Culture - Preliminary No Acid-Fast Bacilli Isolated - Report 1, Additional Report to Follow. 04/17/18 11:40 Bronch Wash,Right Lower Lobe Gram Stain - Final 04/17/18 11:40 Bronch Wash,Right Lower Lobe Bronchoalveolar Lavage Culture - Final Moderate normal don. 04/12/18 21:00 Blood Blood Culture - Final No growth 04/12/18 20:55 Blood Blood Culture - Final No growth CT ANGIOGRAPHY OF THE CHEST, PULMONARY EMBOLUS PROTOCOL CLINICAL HISTORY: Shortness of breath. Chest pain. COMPARISON STUDY: Chest CT October 10, 2017. Chest radiograph April 12, 2018. TECHNIQUE: Following IV administration of 118 mL of Optiray-320, helical axial images of the chest were obtained utilizing the pulmonary embolus protocol. Maximal intensity projections and sagittal and coronal reformats were viewed on an independent 3D workstation. IV contrast was administered without complication. Automated exposure control was utilized for the study. A dose lowering technique was utilized adhering to the principles of ALARA. CT DOSE: 501.06 mGy.cm FINDINGS: No pulmonary emboli are identified. This exam is mildly compromised respiratory motion. There is mild dilatation of the central pulmonary arteries. No thoracic aortic dissection or lymphadenopathy is present. The central airways are patent. Right lower lobe airspace opacity reflects atelectasis. There is no consolidation to suggest pneumonia. No pneumothorax or pleural effusion is present. An 8 mm right middle lobe nodule on image 123 of [address] of January 22, 2016. This is benign given stability. Bony thorax and upper abdomen are unremarkable. IMPRESSION: 1. No pulmonary emboli identified. 2. No consolidation. 3. No thoracic aortic dissection. Electronically signed by: Roni Ragland M.D. 04/13/2018 9:28 AM Dictated: 04/13/18 0922 Transcribed: 04/13/18 0922
--- NOTE | 2018-04-22 15:22 | Hospitalist Progress Note ---
Date of Service April 22, 2018 Assessment & Plan (1) Fungal pneumonia: Bronchial washing: Growing fungus, not Lisette Discussed with pulmonology, and infectious disease: will wait think isolation and sensitivity of fungus infection available-before starting on treatment(need to verify between a true infection versus colonization) Immunology lab shows very low IgG 300 will need out pt collection support specialist referral for possible IgG treatment/infusion Present on Admission?: Yes (2) Respiratory failure, acute and chronic: Secondary to COPD exacerbation Baseline advanced COPD Gold stage III On chronic Oxygen dependency Past Tobacco abuse Presented with hypoxia /cough: Acute on chronic respiratory failure Continued respiratory therapy: Vibration vest , hypertonic saline neb Very slow improvement Patient had multiple readmission in the past, worried of getting discharged to [place] CTA of chest: No pulmonary emboli identified. No consolidation. No thoracic aortic dissection. Continue Bronchodilators, steroids, Abx Appreciate Pulmnology Input Status post bronchoscopy on 04/17/2018 Showed purulent mucoid secretions Per pulmonology, recommend to complete 5 days of Levaquin, Completed Levaquin Day 5/5 steroid changed to oral prednisone 60 mg daily, will need very slow taper Patient reports continued shortness of breath, dyspnea on exertion, and cough Counseling provided: Given advanced lung condition, it will take several days before patient started to experience improvement Pulmonology following closely Hyperglycemia Likely 2/2 steroids A1C:5.6 monitor GERD: Continue PPI Chronic anemia Hb at baseline monitor (3) Renal cyst: H/O Renal Cyst Renal ultrasound:No acute process /no renal mass or cyst noted DVT Px: Lovenox SQ Code Status Full code Disposition: Expect to be discharged home when medically stable Subjective Breathing seems to improve, continues to have nonproductive cough, no fever or chills worried of fungal growth in her bronch specimen spoke with Dr Wray earlier will hold off antifugal therapy till final culture avaiable pt is in agreement update given to daughter in law over phone Physical Exam 2 Vital Signs (Past 24 Hours): Last Vital Signs Temp 36.6 C 04/22/18 15:12 Pulse 84 04/22/18 15:12 Resp 20 04/22/18 15:12 BP 137/76 04/22/18 15:12 Pulse Ox 95 04/22/18 15:12 Constitutional: WD/WN, vitals as above no acute distress Eyes: PERRL, conjunctivae normal, anicteric sclerae ENMT: external ear and nose normal, oropharynx normal Neck: trachea midline, no thyromegaly Respiratory: normal respiratory effort and + cough (Coarse nonproductive) Auscultation: + diminished lung sounds; no crackles, no rales and no wheezes Cardiovascular: Rate/Rhythm: regular rate and regular rhythm Heart Sounds: normal S1 and normal S2 Gastrointestinal (Abdomen): normal bowel sounds, soft, nontender, no hepatosplenomegaly Musculoskeletal: no cyanosis or clubbing, extremities motor strength 5/5 Skin: no rashes, warm and dry Neurologic: PERRL, EOMI, accommodation nl, no face palsy, no dysarthria Psychiatric: A+Ox3, euthymic affect _ (1) Respiratory failure, acute and chronic Respiratory failure complication: hypoxia Qualified Code(s): J96.21 - Acute and chronic respiratory failure with hypoxia
[2018-04-22] MEDS: ATORVASTATIN 10 MG TAB PO SCH (22:35)
[2018-04-22] MEDS: ASCORBIC ACID 500 MG TAB PO SCH (22:37)
[2018-04-22] MEDS: SERTRALINE HCL 50 MG TABLET PO SCH (22:38)
[2018-04-22] MEDS: ENOXAPARIN INJ 30 MG/0.3 ML SYR SQ SCH (22:41)
[2018-04-23] MEDS: LEVALBUTEROL 1.25MG/0.5ML NEB INH SCH ×4 (01:59→19:06)
[2018-04-23] MEDS: IPRATROPIUM BROMIDE NEB SOLN 0.02% 2.5 ML VIAL INH SCH ×4 (01:59→19:06)
[2018-04-23] MEDS: SODIUM CHLOR 7% 4 ML NEB INH SCH ×4 (02:44→19:07)
[2018-04-23] MEDS: CLOTRIMAZOLE 10 MG TROCHE BUCCAL SCH ×5 (06:08→23:35)
[2018-04-23] MEDS: BUDESONIDE 0.5 MG/2 ML VIAL (PULMICORT) NEB SCH ×2 (06:57→19:07)
[2018-04-23] MEDS: POTASSIUM CHLORIDE 20 MEQ TABCR PO SCH (07:52)
[2018-04-23] MEDS: MONTELUKAST SODIUM 10 MG TABLET PO SCH (07:52)
[2018-04-23] MEDS: FUROSEMIDE 20 MG TAB PO SCH (07:52)
[2018-04-23] MEDS: SODIUM CHLORIDE 0.9% 1000ML 1,000 ML IV SCH (07:52)
[2018-04-23] MEDS: CHOLECALCIFEROL 1,000 UNITS TAB PO SCH ×2 (07:53→21:11)
[2018-04-23] MEDS: predniSONE 20 MG TAB PO SCH (07:53)
[2018-04-23] MEDS: PANTOprazole 40 MG TAB PO SCH ×2 (07:53→21:10)
[2018-04-23] MEDS: BENZONATATE 100 MG CAPSULE PO SCH ×3 (07:53→21:09)
[2018-04-23] MEDS: guaiFENesin 600 MG TABCR PO SCH ×2 (07:53→21:08)
[2018-04-23] MEDS: ALBUTEROL HFA 8 GM INHALER INH PRN (07:54)
[2018-04-23] MEDS: LORazepam 1 MG TAB PO PRN ×2 (07:58→21:07)
[2018-04-23] MEDS: GUAIFENESIN/CODEINE 100MG/10MG 5ML UDC PO PRN ×2 (07:58→21:20)
[2018-04-23] MEDS: ACETAMINOPHEN 325 MG TAB PO PRN ×2 (07:58→21:06)
[2018-04-23] MEDS: INSULIN ASPART 100 UNITS/ML 3 ML PEN SC SCH ×4 (08:40→21:12)
[2018-04-23] MEDS ORDERED: ALUMINUM/MAGNESIUM SUSP 30 ML UDC PO PRN (13:52)
--- NOTE | 2018-04-23 18:00 | Hospitalist Progress Note ---
Date of Service April 23, 2018 Assessment & Plan (1) Fungal pneumonia: Bronchial washing: Growing fungus, not Lisette Final isolation, sensitivities still pending Discussed with pulmonology, and infectious disease: Follow-up isolation and sensitivity of fungus infection when available avai lable-before starting on treatment(need to verify between a true infection versus colonization) Immunology lab shows very low IgG 300 will need out pt vocational rehabilitation specialist referral for possible IgG treatment/infusion (2) Respiratory failure, acute and chronic: Secondary to COPD exacerbation Baseline advanced COPD Gold stage III On chronic Oxygen dependency Past Tobacco abuse Presented with hypoxia /cough: Acute on chronic respiratory failure Continued respiratory therapy: Vibration vest , hypertonic saline neb Speech status gradually improved Patient had multiple readmission in the past, worried of getting discharged to home too early and getting readmitted with similar symptom pts daughter in law called and voiced the same concern Pulmonology following closely CTA of chest: No pulmonary emboli identified. No consolidation. No thoracic aortic dissection. Continue Bronchodilators, steroids, Abx Appreciate Pulmnology Input Status post bronchoscopy on 04/17/2018 Showed purulent mucoid secretions Per pulmonology, recommendation pt to completed 5 days of Levaquin, steroid changed to oral prednisone 60 mg daily, will need very slow taper Hyperglycemia Likely 2/2 steroids A1C:5.6 monitor GERD: Continue PPI Chronic anemia Hb at baseline monitor (3) Renal cyst: H/O Renal Cyst Renal ultrasound:No acute process /no renal mass or cyst noted renal function stable no further testing or imaging needed DVT Px: Lovenox SQ Code Status Full code Disposition: Expect to be discharged home when medically stable Subjective Feels a little bit better today, wondering if she is allowed to walk on the hallway Patient is encouraged to increase ambulate Nathan, is concerned about flu, patient can wear a mask while walking on the hallway Coughing remains the same, nonproductive, does not feel that she is able to br ing out anything, dyspnea on exertion, has improved almost to her baseline, no fever or chills Physical Exam Vital Signs (Past 24 Hours): Last Vital Signs Temp 36.7 C 04/23/18 15:12 Pulse 84 04/23/18 15:12 Resp 18 04/23/18 15:12 BP 130/79 04/23/18 15:12 Pulse Ox 97 04/23/18 15:12 Constitutional: WD/WN, vitals as above no acute distress Eyes: PERRL, conjunctivae normal, anicteric sclerae ENMT: external ear and nose normal, oropharynx normal Neck: trachea midline, no thyromegaly Respiratory: normal respiratory effort Auscultation: + diminished lung sounds; no crackles, no rales and no wheezes Cardiovascular: Rate/Rhythm: regular rate and regular rhythm Heart Sounds: normal S1 and normal S2 Gastrointestinal (Abdomen): normal bowel sounds, soft, nontender, no hepatosplenomegaly Musculoskeletal: no cyanosis or clubbing, extremities motor strength 5/5 Skin: no rashes, warm and dry Neurologic: PERRL, EOMI, accommodation nl, no face palsy, no dysarthria Psychiatric: A+Ox3, euthymic affect (1) Respiratory failure, acute and chronic Respiratory failure complication: hypoxia Qualified Code(s): J96.21 - Acute and chronic respiratory failure with hypoxia
[2018-04-23] MEDS: SERTRALINE HCL 50 MG TABLET PO SCH (21:09)
[2018-04-23] MEDS: ASCORBIC ACID 500 MG TAB PO SCH (21:10)
[2018-04-23] MEDS: ATORVASTATIN 10 MG TAB PO SCH (21:10)
[2018-04-23] MEDS: ENOXAPARIN INJ 30 MG/0.3 ML SYR SQ SCH (21:13)
[2018-04-24] MEDS: LEVALBUTEROL 1.25MG/0.5ML NEB INH SCH ×4 (01:46→19:43)
[2018-04-24] MEDS: IPRATROPIUM BROMIDE NEB SOLN 0.02% 2.5 ML VIAL INH SCH ×4 (01:47→19:43)
[2018-04-24] MEDS: CLOTRIMAZOLE 10 MG TROCHE BUCCAL SCH ×5 (06:32→22:00)
[2018-04-24] MEDS: BUDESONIDE 0.5 MG/2 ML VIAL (PULMICORT) NEB SCH ×2 (07:15→19:43)
[2018-04-24] MEDS: SODIUM CHLOR 7% 4 ML NEB INH SCH ×4 (07:15→19:43)
[2018-04-24] MEDS: GUAIFENESIN/CODEINE 100MG/10MG 5ML UDC PO PRN ×2 (08:12→22:05)
[2018-04-24] MEDS: LORazepam 1 MG TAB PO PRN ×2 (08:12→22:05)
[2018-04-24] MEDS: ACETAMINOPHEN 325 MG TAB PO PRN (08:12)
[2018-04-24] MEDS: SODIUM CHLORIDE 0.9% 1000ML 1,000 ML IV SCH (08:13)
[2018-04-24] MEDS: BENZONATATE 100 MG CAPSULE PO SCH ×3 (08:13→20:32)
[2018-04-24] MEDS: POTASSIUM CHLORIDE 20 MEQ TABCR PO SCH (08:14)
[2018-04-24] MEDS: guaiFENesin 600 MG TABCR PO SCH ×2 (08:14→20:29)
[2018-04-24] MEDS: MONTELUKAST SODIUM 10 MG TABLET PO SCH (08:14)
[2018-04-24] MEDS: CHOLECALCIFEROL 1,000 UNITS TAB PO SCH ×2 (08:14→20:29)
[2018-04-24] MEDS: FUROSEMIDE 20 MG TAB PO SCH (08:14)
[2018-04-24] MEDS: predniSONE 20 MG TAB PO SCH (08:14)
[2018-04-24] MEDS: PANTOprazole 40 MG TAB PO SCH ×2 (08:14→20:29)
[2018-04-24] MEDS: INSULIN ASPART 100 UNITS/ML 3 ML PEN SC SCH ×4 (08:20→20:34)
--- NOTE | 2018-04-24 12:09 | Progress Note ---
DATE: 04/24/2018 PULMONARY PROGRESS NOTE TIME: 11:45 a.m. SUBJECTIVE: Generally, the patient is doing well. She is still coughing some. It clearly is not bad. She did ambulate the hallway yesterday. She states she gets slightly short of breath, but according to staff, she tolerated it well. The patient clearly seems to be a little afraid of going home, I believe. OBJECTIVE: GENERAL: The patient is comfortable. She coughed slightly during the exam. VITAL SIGNS: Temperature 36.8. Heart rate 92 per minute. Rhythm regular. Blood pressure 128/78. LUNGS: Lung becerra revealed mild rales posteriorly bilaterally. Good aeration was heard. No wheezes heard. Saturation 98% on 2 liters. EXTREMITIES: Showed no cyanosis, clubbing or edema. LABORATORY DATA: Blood sugar today was as high as 149. IMPRESSION: 1. Chronic obstructive pulmonary disease exacerbation. 2. Chronic cough. 3. Tracheomalacia. 4. Stable right middle lobe lung nodule. 5. Decreased IgG. COMMENTS AND RECOMMENDATIONS: The patient seems overall stable. The final fungal culture is still pending, but I do not think that needs to hold up the discharge. She has been on prednisone 60 mg daily since the . I believe, could change to 50 mg daily tomorrow and then upon discharge. I believe she does follow up in the pulmonary office with one of our providers.
--- NOTE | 2018-04-24 16:15 | Infectious Disease Progress Nt ---
Date of Service April 24, 2018 Assessment & Plan (1) Fungal pneumonia: Patient with severe PIP COPD with exacerbation with positive BAL fluid culture for fungus. Given improvement without specific antifungal therapy, and lack of significant infiltration on chest x-ray, suspect that this represents colonization because of previous steroid use and antibiotic use. Patient to be followed off of antifungal therapy until isolate identified. Will decide on therapy once identification completed. (2) COPD exacerbation: Subjective Patient seen in follow-up for possible fungal pneumonia. Still gets short of breath very easily, cough persists. Overall slightly improved. No fever. Still no identification of fungal isolate. Review of Systems All systems reviewed & are unremarkable except as noted in HPI & below Physical Exam Vital Signs (Past 24 Hours): Last Vital Signs Temp 36.5 C 04/24/18 15:59 Pulse 99 H 04/24/18 15:59 Resp 20 04/24/18 15:59 BP 125/73 04/24/18 15:59 Pulse Ox 95 04/24/18 15:59 Constitutional: WD/WN, vitals as above comfortable; no acute distress Eyes: PERRL, conjunctivae normal, anicteric sclerae ENMT: external ear and nose normal, oropharynx normal Neck: trachea midline, no thyromegaly neck nontender Respiratory: normal percussion; no respiratory distress and does not use accessory muscles Auscultation: + diminished lung sounds and + wheezes Cardiovascular: Rate/Rhythm: regular rate and regular rhythm Heart Sounds: normal S1 and normal S2; no gallop, no murmur and no cardiac rub Vessels: normal peripheral pulses; no JVD Gastrointestinal (Abdomen): normal bowel sounds, soft, nontender, no hepatosplenomegaly Musculoskeletal: no cyanosis or clubbing, extremities motor strength 5/5 Spine: thoracic spine normal to inspection and lumbar spine normal to inspection; no cervical spinal tenderness Skin: no rashes, warm and dry normal turgor; no lesions Neurologic: patellar DTR's 2+ bilat, sensation intact no focal motor deficits Psychiatric: A+Ox3, euthymic affect Orientation: cooperative Lymphatic: no cervical or axillary lymphadenopathy no inguinal lymphadenopathy Results & Data Laboratory Results Laboratory Results - last 48 hr 04/22/18 04/22/18 04/23/18 16:35 19:54 07:30 POC Glucose 105 H 126 H 83 04/23/18 04/23/18 04/23/18 11:42 16:11 20:07 POC Glucose 108 H 122 H 158 H 04/24/18 04/24/18 07:46 11:23 POC Glucose 83 149 H Diagnostic Findings Microbiology 04/17/18 11:40 Bronch Wash,Right Lower Lobe Fungal Smear - Final 04/17/18 11:40 Bronch Wash,Right Lower Lobe Fungal Culture - Preliminary Fungus- ident.to follow 04/17/18 11:40 Bronch Wash,Right Lower Lobe Acid Fast Bacilli Smear - Final 04/17/18 11:40 Bronch Wash,Right Lower Lobe Acid Fast Bacilli Culture - Preliminary No Acid-Fast Bacilli Isolated - Report 1, Additional Report to Follow. 04/17/18 11:40 Bronch Wash,Right Lower Lobe Gram Stain - Final 04/17/18 11:40 Bronch Wash,Right Lower Lobe Bronchoalveolar Lavage Culture - Final Moderate normal don. 04/12/18 21:00 Blood Blood Culture - Final No growth 04/12/18 20:55 Blood Blood Culture - Final No growth
--- NOTE | 2018-04-24 17:42 | Hospitalist Progress Note ---
Date of Service April 24, 2018 Assessment & Plan (1) Fungal pneumonia: Bronchial washing: Growing fungus, not Lisette Final isolation, sensitivities still pending Discussed with pulmonology, and infectious disease: Possible colonization secondary to long-term steroid use Follow-up isolation and sensitivity of fungus infection when available available-before starting on treatment Immunology lab shows very low IgG 380( chronically low : IgG on 06/15/2017: 604 10/12/2017: 558 04/22/2018: 380 Normal IgAIgMIgE level will need out pt reimbursement specialist referral for possible IgG treatment/infusion (2) Respiratory failure, acute and chronic: Secondary to COPD exacerbation Baseline advanced COPD Gold stage III On chronic Oxygen dependency Past Tobacco abuse Presented with hypoxia /cough: Acute on chronic respiratory failure Continued respiratory therapy: Vibration vest , hypertonic saline neb Speech status gradually improved Patient had multiple readmission in the past, worried of getting discharged to home too early and getting readmitted with similar symptom pts daughter in law called and voiced the same concern Pulmonology following CTA of chest: No pulmonary emboli identified. No consolidation. No thoracic aortic dissection. Continue Bronchodilators, steroids, Abx Appreciate Pulmnology Input Status post bronchoscopy on 04/17/2018 Showed purulent mucoid secretions Per pulmonology, recommendation pt to completed 5 days of Levaquin, steroid changed to oral prednisone 60 mg daily, will need very slow taper Hyperglycemia Likely 2/2 steroids A1C:5.6 monitor GERD: Continue PPI Chronic anemia Hb at baseline monitor (3) Renal cyst: H/O Renal Cyst Renal ultrasound:No acute process /no renal mass or cyst noted renal function stable no further testing or imaging needed DVT Px: Lovenox SQ Code Status Full code Disposition: follow up final report of bronchial specimen fungal culture Expected to be discharged home when medically stable Patient's [id number] Carlyn Em updated over the phone [id number] request repeatedly, her fungal infection status admits to be confirmed, whether she needs to be treated on not prior to discharge Because of patient's multiple repeated admissions in the past, family is worried requests that patient's breathing status is stable prior to discharge Subjective Patient says "she feels the same, does not feel her shortness of breath has improved, Getting out of breath while trying to go to the bathroom Has nonproductive cough Worried about getting discharged to early wants to wait till result of fungal infection is available - does not want to return back to Hospital with another infection Physical Exam Vital Signs (Past 24 Hours): Last Vital Signs Temp 36.5 C 04/24/18 15:59 Pulse 99 H 04/24/18 15:59 Resp 20 04/24/18 15:59 BP 125/73 04/24/18 15:59 Pulse Ox 95 04/24/18 15:59 Constitutional: WD/WN, vitals as above no acute distress Eyes: PERRL, conjunctivae normal, anicteric sclerae ENMT: external ear and nose normal, oropharynx normal Neck: trachea midline, no thyromegaly Respiratory: normal respiratory effort Auscultation: + diminished lung sounds; no crackles, no rales and no wheezes Cardiovascular: Rate/Rhythm: regular rate and regular rhythm Heart Sounds: normal S1 and normal S2 Gastrointestinal (Abdomen): normal bowel sounds, soft, nontender, no hepatosplenomegaly Musculoskeletal: no cyanosis or clubbing, extremities motor strength 5/5 Skin: no rashes, warm and dry Neurologic: PERRL, EOMI, accommodation nl, no face palsy, no dysarthria Psychiatric: A+Ox3, euthymic affect (1) Respiratory failure, acute and chronic Respiratory failure complication: hypoxia Qualified Code(s): J96.21 - Acute and chronic respiratory failure with hypoxia
[2018-04-24] MEDS: ATORVASTATIN 10 MG TAB PO SCH (20:29)
[2018-04-24] MEDS: SERTRALINE HCL 50 MG TABLET PO SCH (20:31)
[2018-04-24] MEDS: ASCORBIC ACID 500 MG TAB PO SCH (20:32)
[2018-04-24] MEDS: ENOXAPARIN INJ 30 MG/0.3 ML SYR SQ SCH (22:00)
[2018-04-24] MEDS: TRAMADOL HCL 50 MG TABLET PO PRN (22:05)
[2018-04-25] MEDS: SODIUM CHLOR 7% 4 ML NEB INH SCH ×4 (01:37→19:05)
[2018-04-25] MEDS: LEVALBUTEROL 1.25MG/0.5ML NEB INH SCH ×4 (01:37→19:04)
[2018-04-25] MEDS: IPRATROPIUM BROMIDE NEB SOLN 0.02% 2.5 ML VIAL INH SCH ×4 (01:37→19:05)
[2018-04-25] MEDS: CLOTRIMAZOLE 10 MG TROCHE BUCCAL SCH ×5 (06:18→21:30)
[2018-04-25] MEDS: BUDESONIDE 0.5 MG/2 ML VIAL (PULMICORT) NEB SCH ×2 (07:01→19:04)
[2018-04-25] MEDS: TRAMADOL HCL 50 MG TABLET PO PRN ×2 (08:25→21:26)
[2018-04-25] MEDS: GUAIFENESIN/CODEINE 100MG/10MG 5ML UDC PO PRN ×2 (08:25→21:25)
[2018-04-25] MEDS: LORazepam 1 MG TAB PO PRN ×2 (08:26→21:26)
[2018-04-25] MEDS: SODIUM CHLORIDE 0.9% 1000ML 1,000 ML IV SCH (08:28)
[2018-04-25] MEDS: PANTOprazole 40 MG TAB PO SCH ×2 (08:29→21:29)
[2018-04-25] MEDS: predniSONE 20 MG TAB PO SCH (08:29)
[2018-04-25] MEDS: POTASSIUM CHLORIDE 20 MEQ TABCR PO SCH (08:30)
[2018-04-25] MEDS: MONTELUKAST SODIUM 10 MG TABLET PO SCH (08:30)
[2018-04-25] MEDS: guaiFENesin 600 MG TABCR PO SCH ×2 (08:30→21:29)
[2018-04-25] MEDS: BENZONATATE 100 MG CAPSULE PO SCH ×3 (08:30→21:26)
[2018-04-25] MEDS: FUROSEMIDE 20 MG TAB PO SCH (08:31)
[2018-04-25] MEDS: CHOLECALCIFEROL 1,000 UNITS TAB PO SCH ×2 (08:32→21:29)
[2018-04-25] MEDS: INSULIN ASPART 100 UNITS/ML 3 ML PEN SC SCH ×4 (08:35→21:20)
[2018-04-25] MEDS: NEOMYCIN/POLYMYX/BACITR OINT 15 GM TUBE EXT PRN (13:04)
--- NOTE | 2018-04-25 15:40 | Hospitalist Progress Note ---
Date of Service April 25, 2018 Assessment & Plan (1) Fungal pneumonia: History of severe baseline COPD, present with COPD exacerbation, status post bronchoscopy, bronchoscopy sample positive for fungal growth Bronchial washing: Growing fungus, not Lisette Final isolation, sensitivities still pending Discussed with pulmonology, and infectious disease: Per Dr. Yao: Given improvement without specific antifungal therapy, and lack of significant infiltration on chest x-ray, suspect that this represents colonization because of previous steroid use and antibiotic use. Recommends patient to be followed off of antifungal therapy until isolate identified. Antifungal therapy to be decided once identification completed. Subjective Patient seen in follow-up for possible fungal pneumonia. Still gets short of breath very easily, cough persists. Overall slightly improved. No fever. Still no identification Follow-up isolation and sensitivity of fungus infection when available available-before starting on treatment Immunology lab shows very low IgG 380( chronically low : IgG on 06/15/2017: 604 10/12/2017: 558 04/22/2018: 380 Normal IgAIgMIgE level will need out pt benefits specialist recruiter referral for possible IgG treatment/infusion (2) Respiratory failure, acute and chronic: Secondary to COPD exacerbation Baseline advanced COPD Gold stage III On chronic Oxygen dependency Past Tobacco abuse Presented with hypoxia /cough: Acute on chronic respiratory failure Continued respiratory therapy: Vibration vest , hypertonic saline neb Speech status gradually improved Patient had multiple readmission in the past, worried of getting discharged to home too early and getting readmitted with similar symptom pts daughter in law called and voiced the same concern Pulmonology following CTA of chest: No pulmonary emboli identified. No consolidation. No thoracic aortic dissection. Continue Bronchodilators, steroids, Abx Appreciate Pulmnology Input Status post bronchoscopy on 04/17/2018 Showed purulent mucoid secretions/bronchial specimen positive for fungal growth Per pulmonology, recommendation pt has completed 5 days of p.o. Levaquin, Hold of antifungal treatment: Till identification/sensitivity of bronchial fungal growth available steroid changed to oral prednisone 60 mg daily, will need very slow taper Hyperglycemia Likely 2/2 steroids A1C:5.6 monitor GERD: Continue PPI Chronic anemia Hb at baseline monitor (3) Renal cyst: H/O Renal Cyst Renal ultrasound:No acute process /no renal mass or cyst noted renal function stable no further testing or imaging needed DVT Px: Lovenox SQ Code Status Full code Disposition: follow up final report of bronchial specimen fungal culture Expected to be discharged home in next 24-48 hours Patient's [id number]: Calryn Em is very involved in patient's care [id number] request repeatedly, her fungal infection status admits to be confirmed, whether she needs to be treated on not prior to discharge Because of patient's multiple repeated admissions in the past, family is worried requests that patient's breathing status is stable prior to discharge Subjective No change in her breathing, patient reports of still getting short of breath while trying to walk to the bathroom, has minimum cough no fevers chills Request report from fungal culture, patient updated isolation is still pending, Per Dr. Yao: Fungal growth in the bronchial specimen could be benign/colonization, as patient's been on steroid chronically Patient and family requests patient to stay in hospital until final isolation of fungal culture is back, to make sure it does not require any treatments Patient is worried about returning back to hospital with untreated fungal pneumonia Physical Exam Vital Signs (Past 24 Hours): Last Vital Signs Temp 36.5 C 04/25/18 07:06 Pulse 103 H 04/25/18 14:20 Resp 18 04/25/18 14:20 BP 165/93 H 04/25/18 07:06 Pulse Ox 97 04/25/18 14:20 Constitutional: WD/WN, vitals as above no acute distress Eyes: PERRL, conjunctivae normal, anicteric sclerae ENMT: external ear and nose normal, oropharynx normal Neck: trachea midline, no thyromegaly Respiratory: normal respiratory effort Auscultation: + diminished lung sounds; no crackles, no rales and no wheezes Cardiovascular: Rate/Rhythm: regular rate and regular rhythm Heart Sounds: normal S1 and normal S2 Gastrointestinal (Abdomen): normal bowel sounds, soft, nontender, no hepatosplenomegaly Musculoskeletal: no cyanosis or clubbing, extremities motor strength 5/5 Skin: no rashes, warm and dry Neurologic: PERRL, EOMI, accommodation nl, no face palsy, no dysarthria Psychiatric: A+Ox3, euthymic affect (1) Respiratory failure, acute and chronic Respiratory failure complication: hypoxia Qualified Code(s): J96.21 - Acute and chronic respiratory failure with hypoxia
[2018-04-25] MEDS: ASCORBIC ACID 500 MG TAB PO SCH (21:26)
[2018-04-25] MEDS: SERTRALINE HCL 50 MG TABLET PO SCH (21:28)
[2018-04-25] MEDS: ATORVASTATIN 10 MG TAB PO SCH (21:28)
[2018-04-25] MEDS: ENOXAPARIN INJ 30 MG/0.3 ML SYR SQ SCH (21:29)
[2018-04-26] MEDS: LEVALBUTEROL 1.25MG/0.5ML NEB INH SCH ×4 (02:06→19:20)
[2018-04-26] MEDS: IPRATROPIUM BROMIDE NEB SOLN 0.02% 2.5 ML VIAL INH SCH ×4 (02:06→19:20)
[2018-04-26] MEDS: SODIUM CHLOR 7% 4 ML NEB INH SCH ×4 (02:06→19:20)
[2018-04-26] MEDS: CLOTRIMAZOLE 10 MG TROCHE BUCCAL SCH ×5 (06:16→23:31)
[2018-04-26] MEDS: BUDESONIDE 0.5 MG/2 ML VIAL (PULMICORT) NEB SCH ×2 (07:00→19:20)
[2018-04-26] MEDS: LORazepam 1 MG TAB PO PRN ×2 (09:03→20:56)
[2018-04-26] MEDS: TRAMADOL HCL 50 MG TABLET PO PRN ×2 (09:03→20:56)
[2018-04-26] MEDS: INSULIN ASPART 100 UNITS/ML 3 ML PEN SC SCH ×4 (09:03→21:02)
[2018-04-26] MEDS: predniSONE 20 MG TAB PO SCH (09:04)
[2018-04-26] MEDS: CHOLECALCIFEROL 1,000 UNITS TAB PO SCH ×2 (09:04→20:49)
[2018-04-26] MEDS: PANTOprazole 40 MG TAB PO SCH ×2 (09:05→20:48)
[2018-04-26] MEDS: guaiFENesin 600 MG TABCR PO SCH ×2 (09:05→20:48)
[2018-04-26] MEDS: POTASSIUM CHLORIDE 20 MEQ TABCR PO SCH (09:05)
[2018-04-26] MEDS: FUROSEMIDE 20 MG TAB PO SCH (09:05)
[2018-04-26] MEDS: BENZONATATE 100 MG CAPSULE PO SCH ×3 (09:05→20:50)
[2018-04-26] MEDS: MONTELUKAST SODIUM 10 MG TABLET PO SCH (09:05)
--- NOTE | 2018-04-26 15:35 | Hospitalist Progress Note ---
Date of Service April 26, 2018 Assessment & Plan (1) Fungal pneumonia: per Dr. Ramirez notes: History of severe baseline COPD, present with COPD exacerbation, status post bronchoscopy, bronchoscopy sample positive for fungal growth Bronchial washing: Growing fungus, not Lisette Final isolation, sensitivities still pending Discussed with pulmonology, and infectious disease: Per Dr. Wray: Given improvement without specific antifungal therapy, and lack of significant infiltration on chest x-ray, suspect that this represents colonization because of previous steroid use and antibiotic use. Recommends patient to be followed off of antifungal therapy until isolate identified. Antifungal therapy to be decided once identification completed. 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 Ramirez notes: Secondary to COPD exacerbation Baseline advanced COPD Gold stage III On chronic Oxygen dependency Past Tobacco abuse Presented with hypoxia /cough: Acute on chronic respiratory failure Continued respiratory therapy: Vibration vest , hypertonic saline neb CTA of chest: No pulmonary emboli identified. No consolidation. No thoracic a ortic dissection. Continue Bronchodilators, steroids, Abx Appreciate Pulmnology Input Status post bronchoscopy on 04/17/2018 Showed purulent mucoid secretions/bronchial specimen positive for fungal growth Per pulmonology, recommendation pt has completed 5 days of p.o. Levaquin, Hold of antifungal treatment: Till identification/sensitivity of bronchial fungal growth available steroid changed to oral prednisone 60 mg daily, will need very slow taper 04/26/18 respiratory status stable slowly improving continue nebs, prednisone monitor Hyperglycemia Likely 2/2 steroids A1C:5.6 monitor GERD: Continue PPI Chronic anemia Hb at baseline monitor (3) Renal cyst: H/O Renal Cyst Renal ultrasound:No acute process /no renal mass or cyst noted renal function stable no further testing or imaging needed DVT Px: Lovenox SQ Code Status Full code Disposition: pending Subjective ff up for COPD exacerbation seen resting in bed, comfortable states she walked in the halls today, then felt tired cough seems to be increased today breathing is about the same as yesterday no other symptoms Physical Exam Vital Signs (Past 24 Hours): Last Vital Signs Temp 36.6 C 04/26/18 07:56 Pulse 97 H 04/26/18 14:25 Resp 18 04/26/18 14:25 BP 141/77 H 04/26/18 07:56 Pulse Ox 96 04/26/18 14:25 Physical Exam: General- oriented x 3, not in distress, speaks in sentences with no effort or accessory muscle use Eyes- anicteric Neck- no JVD Lungs- somewhat distant breath sounds, but no wheezing/rhonchi Heart- normal rate, regular rhythm; no murmurs Abdomen- normal bowel sounds, nondistended, soft, nontender Extremities- no pretibial edema, no calf tenderness Neuro- alert, oriented x 3; no gross focal neurologic deficits Skin- warm & dry Results & Data Laboratory Results Laboratory Results - last 24 hr 04/25/18 04/26/18 04/26/18 20:25 07:37 11:49 POC Glucose 119 H 81 110 H Urine Color Urine Appearance Urine pH Ur Specific [place] Urine Protein Urine Glucose (UA) Urine Ketones Urine Blood Urine Nitrite Urine Bilirubin Urine Urobilinogen Ur Leukocyte Esterase Urine WBC (Auto) Urine RBC (Auto) U Hyaline Cast (Auto) U Epithel Cells (Auto) Urine Bacteria (Auto) 04/26/18 04/26/18 16:39 17:00 POC Glucose 126 H Urine Color Yellow Urine Appearance Clear Urine pH 7.5 Ur Specific [place] 1.011 Urine Protein Negative Urine Glucose (UA) Negative Urine Ketones Negative Urine Blood 1+ H Urine Nitrite Negative Urine Bilirubin Negative Urine Urobilinogen Negative Ur Leukocyte Esterase Negative Urine WBC (Auto) 0 Urine RBC (Auto) 5-10 H U Hyaline Cast (Auto) 0 U Epithel Cells (Auto) 5-10 H Urine Bacteria (Auto) Negative (1) Respiratory failure, acute and chronic Respiratory failure complication: hypoxia Qualified Code(s): J96.21 - Acute and chronic respiratory failure with hypoxia
[2018-04-26 17:30] LABS: Appearance Urine Clear (Clear); Bacteria Urine Automated Negative (Negative); Bilirubin Urine Negative (Negative); Blood Urine 1+ (Negative); Cast Urine Automated 0 /lpf (0-5); Color Urine Yellow; Glucose Urine UA Negative (Negative); Ketones Urine Negative (Negative); Leukocyte Esterase Urine Negative (Negative); Nitrite Urine Negative (Negative); Protein Urine Negative (Negative); Specific Gravity Urine 1.011 (1.000-1.030); Urobilinogen Urine Negative (Negative); WBC Urine Automated 0 /hpf (0-5); pH Urine 7.5 (4.5-7.5)
[2018-04-26] MEDS: LIDOCAINE 5% 1 PATCH TD SCH (17:42)
[2018-04-26] MEDS: SERTRALINE HCL 50 MG TABLET PO SCH (20:48)
[2018-04-26] MEDS: ATORVASTATIN 10 MG TAB PO SCH (20:48)
[2018-04-26] MEDS: ASCORBIC ACID 500 MG TAB PO SCH (20:50)
[2018-04-26] MEDS: GUAIFENESIN/CODEINE 100MG/10MG 5ML UDC PO PRN (20:56)
[2018-04-26] MEDS: ENOXAPARIN INJ 30 MG/0.3 ML SYR SQ SCH (22:03)
[2018-04-27] MEDS: LEVALBUTEROL 1.25MG/0.5ML NEB INH SCH ×4 (01:55→19:24)
[2018-04-27] MEDS: SODIUM CHLOR 7% 4 ML NEB INH SCH ×3 (01:55→19:26)
[2018-04-27] MEDS: IPRATROPIUM BROMIDE NEB SOLN 0.02% 2.5 ML VIAL INH SCH ×4 (01:55→19:24)
[2018-04-27] MEDS: CLOTRIMAZOLE 10 MG TROCHE BUCCAL SCH ×5 (06:41→23:21)
[2018-04-27] MEDS: BUDESONIDE 0.5 MG/2 ML VIAL (PULMICORT) NEB SCH ×2 (07:19→19:26)
[2018-04-27] MEDS: GUAIFENESIN/CODEINE 100MG/10MG 5ML UDC PO PRN (08:06)
[2018-04-27] MEDS: TRAMADOL HCL 50 MG TABLET PO PRN ×2 (08:06→21:09)
[2018-04-27] MEDS: LORazepam 1 MG TAB PO PRN ×2 (08:07→21:11)
[2018-04-27] MEDS: guaiFENesin 600 MG TABCR PO SCH ×2 (08:07→21:13)
[2018-04-27] MEDS: POTASSIUM CHLORIDE 20 MEQ TABCR PO SCH (08:07)
[2018-04-27] MEDS: CHOLECALCIFEROL 1,000 UNITS TAB PO SCH ×2 (08:07→21:08)
[2018-04-27] MEDS: predniSONE 20 MG TAB PO SCH (08:08)
[2018-04-27] MEDS: INSULIN ASPART 100 UNITS/ML 3 ML PEN SC SCH ×4 (08:08→21:11)
[2018-04-27] MEDS: FUROSEMIDE 20 MG TAB PO SCH (08:08)
[2018-04-27] MEDS: MONTELUKAST SODIUM 10 MG TABLET PO SCH (08:08)
[2018-04-27] MEDS: BENZONATATE 100 MG CAPSULE PO SCH ×3 (08:08→21:09)
[2018-04-27] MEDS: PANTOprazole 40 MG TAB PO SCH ×2 (08:08→21:09)
--- NOTE | 2018-04-27 08:53 | Hospitalist Progress Note ---
Date of Service April 27, 2018 Assessment & Plan (1) Fungal pneumonia: per Dr. Ramirez notes: History of severe baseline COPD, present with COPD exacerbation, status post bronchoscopy, bronchoscopy sample positive for fungal growth Bronchial washing: Growing fungus, not Lisette Final isolation, sensitivities still pending Discussed with pulmonology, and infectious disease: Per Dr. Wray: Given improvement without specific antifungal therapy, and lack of significant infiltration on chest x-ray, suspect that this represents colonization because of previous steroid use and antibiotic use. Recommends patient to be followed off of antifungal therapy until isolate identified. Antifungal therapy to be decided once identification completed. 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 Ramirez notes: Secondary to COPD exacerbation Baseline advanced COPD Gold stage III On chronic Oxygen dependency Past Tobacco abuse Presented with hypoxia /cough: Acute on chronic respiratory failure Continued respiratory therapy: Vibration vest , hypertonic saline neb CTA of chest: No pulmonary emboli identified. No consolidation. No thoracic aortic dissection. Continue Bronchodilators, steroids, Abx Appreciate Pulmnology Input Status post bronchoscopy on 04/17/2018 Showed purulent mucoid secretions/bronchial specimen positive for fungal growth Per pulmonology, recommendation pt has completed 5 days of p.o. Levaquin, Hold of antifungal treatment: Till identification/sensitivity of bronchial fungal growth available steroid changed to oral prednisone 60 mg daily, will need very slow taper management per #1 Hyperglycemia Likely 2/2 steroids A1C:5.6 monitor GERD: Continue PPI Chronic anemia Hb at baseline monitor (3) Renal cyst: H/O Renal Cyst Renal ultrasound:No acute process /no renal mass or cyst noted renal function stable no further testing or imaging needed DVT Px: Lovenox SQ Code Status Full code Disposition: pending Subjective Follow-up COPD exacerbation Patient seen sitting up in bed, comfortable Reports wheezing this morning, some mild dyspnea Coughing is about the same still nonproductive Denies chest pain No other symptoms Physical Exam Vital Signs (Past 24 Hours): Last Vital Signs Temp 36.9 C 04/27/18 06:56 Pulse 82 04/27/18 07:29 Resp 20 04/27/18 07:29 BP 118/74 04/27/18 06:56 Pulse Ox 97 04/27/18 07:29 Physical Exam: General- oriented x 3, not in distress, speaks in sentences with no effort or accessory muscle use Eyes- anicteric Neck- no JVD Lungs- (+) mild scattered wheeze right > left Heart- normal rate, regular rhythm; no murmurs Abdomen- normal bowel sounds, nondistended, soft, nontender Extremities- no pretibial edema, no calf tenderness Neuro- alert, oriented x 3; no gross focal neurologic deficits Skin- warm & dry Results & Data Laboratory Results Laboratory Results - last 24 hr 04/26/18 04/26/18 04/26/18 16:39 17:00 20:18 POC Glucose 126 H 136 H Urine Color Yellow Urine Appearance Clear Urine pH 7.5 Ur Specific [place] 1.011 Urine Protein Negative Urine Glucose (UA) Negative Urine Ketones Negative Urine Blood 1+ H Urine Nitrite Negative Urine Bilirubin Negative Urine Urobilinogen Negative Ur Leukocyte Esterase Negative Urine WBC (Auto) 0 Urine RBC (Auto) 5-10 H U Hyaline Cast (Auto) 0 U Epithel Cells (Auto) 5-10 H Urine Bacteria (Auto) Negative 04/27/18 04/27/18 07:15 11:26 POC Glucose 90 118 H Urine Color Urine Appearance Urine pH Ur Specific [place] Urine Protein Urine Glucose (UA) Urine Ketones Urine Blood Urine Nitrite Urine Bilirubin Urine Urobilinogen Ur Leukocyte Esterase Urine WBC (Auto) Urine RBC (Auto) U Hyaline Cast (Auto) U Epithel Cells (Auto) Urine Bacteria (Auto) (1) Respiratory failure, acute and chronic Respiratory failure complication: hypoxia Qualified Code(s): J96.21 - Acute and chronic respiratory failure with hypoxia
--- NOTE | 2018-04-27 09:08 | XRay Report ---
XR chest 1V portable CLINICAL HISTORY: wheezing dyspnea COMPARISON STUDY: 04/12/2018 FINDINGS: The bones soft tissues and hemidiaphragms are normal. The cardiomediastinal silhouette is n ormal. The lungs are clear. The pulmonary vasculature is normal. IMPRESSION: Negative chest. The above report was generated using voice recognition software. It may contain grammatical, syntax or spelling errors. Electronically signed by: Nagi Hunt M.D. 04/27/2018 9:07 AM
[2018-04-27] MEDS: methylPREDNISolone 40 MG in SYRINGE 0 ML IV SCH ×2 (10:39→19:16)
[2018-04-27] MEDS: LIDOCAINE 5% 1 PATCH TD SCH (11:21)
[2018-04-27] MEDS: ALBUTEROL HFA 8 GM INHALER INH PRN ×2 (12:59→23:21)
[2018-04-27] MEDS: ENOXAPARIN INJ 30 MG/0.3 ML SYR SQ SCH (21:08)
[2018-04-27] MEDS: SERTRALINE HCL 50 MG TABLET PO SCH (21:09)
[2018-04-27] MEDS: ASCORBIC ACID 500 MG TAB PO SCH (21:09)
[2018-04-27] MEDS: ATORVASTATIN 10 MG TAB PO SCH (21:09)
[2018-04-28] MEDS: IPRATROPIUM BROMIDE NEB SOLN 0.02% 2.5 ML VIAL INH SCH ×6 (01:37→22:51)
[2018-04-28] MEDS: LEVALBUTEROL 1.25MG/0.5ML NEB INH SCH ×5 (01:38→22:51)
[2018-04-28] MEDS: methylPREDNISolone 40 MG in SYRINGE 0 ML IV SCH ×4 (02:05→21:30)
[2018-04-28] MEDS: SODIUM CHLOR 7% 4 ML NEB INH SCH ×3 (07:25→20:00)
[2018-04-28] MEDS: BUDESONIDE 0.5 MG/2 ML VIAL (PULMICORT) NEB SCH ×2 (07:26→19:44)
[2018-04-28] MEDS: CLOTRIMAZOLE 10 MG TROCHE BUCCAL SCH ×5 (08:03→23:04)
[2018-04-28] MEDS: BENZONATATE 100 MG CAPSULE PO SCH ×3 (08:03→21:31)
[2018-04-28] MEDS: PANTOprazole 40 MG TAB PO SCH ×2 (08:03→21:33)
[2018-04-28] MEDS: guaiFENesin 600 MG TABCR PO SCH ×2 (08:03→21:31)
[2018-04-28] MEDS: CHOLECALCIFEROL 1,000 UNITS TAB PO SCH ×2 (08:03→21:32)
[2018-04-28] MEDS: MONTELUKAST SODIUM 10 MG TABLET PO SCH (08:04)
[2018-04-28] MEDS: predniSONE 20 MG TAB PO SCH (08:04)
[2018-04-28] MEDS: FUROSEMIDE 20 MG TAB PO SCH (08:04)
[2018-04-28] MEDS: POTASSIUM CHLORIDE 20 MEQ TABCR PO SCH (08:05)
[2018-04-28] MEDS: LORazepam 1 MG TAB PO PRN ×2 (08:09→21:43)
[2018-04-28] MEDS: GUAIFENESIN/CODEINE 100MG/10MG 5ML UDC PO PRN ×2 (08:09→21:43)
[2018-04-28] MEDS: TRAMADOL HCL 50 MG TABLET PO PRN ×2 (08:10→21:43)
[2018-04-28] MEDS: INSULIN ASPART 100 UNITS/ML 3 ML PEN SC SCH ×4 (08:11→21:29)
[2018-04-28] MEDS: LIDOCAINE 5% 1 PATCH TD SCH (08:12)
--- NOTE | 2018-04-28 14:19 | Hospitalist Progress Note ---
Date of Service April 28, 2018 Assessment & Plan (1) Fungal pneumonia: per Dr. Ramirez notes: History of severe baseline COPD, present with COPD exacerbation, status post bronchoscopy, bronchoscopy sample positive for fungal growth Bronchial washing: Growing fungus, not Lisette Final isolation, sensitivities still pending Discussed with pulmonology, and infectious disease: Per Dr. Wray: Given improvement without specific antifungal therapy, and lack of significant infiltration on chest x-ray, suspect that this represents colonization because of previous steroid use and antibiotic use. Recommends patient to be followed off of antifungal therapy until isolate identified. Antifungal therapy to be decided once identification completed. 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 Ramirez notes: Secondary to COPD exacerbation Baseline advanced COPD Gold stage III On chronic Oxygen dependency Past Tobacco abuse Presented with hypoxia /cough: Acute on chronic respiratory failure Continued respiratory therapy: Vibration vest , hypertonic saline neb CTA of chest: No pulmonary emboli identified. No consolidation. No thoracic aortic dissection. Continue Bronchodilators, steroids, Abx Appreciate Pulmnology Input Status post bronchoscopy on 04/17/2018 Showed purulent mucoid secretions/bronchial specimen positive for fungal growth Per pulmonology, recommendation pt has completed 5 days of p.o. Levaquin, Hold of antifungal treatment: Till identification/sensitivity of bronchial fungal growth available steroid changed to oral prednisone 60 mg daily, will need very slow taper management per #1 Hyperglycemia Likely 2/2 steroids A1C:5.6 monitor GERD: Continue PPI Chronic anemia Hb at baseline monitor (3) Renal cyst: H/O Renal Cyst Renal ultrasound:No acute process /no renal mass or cyst noted renal function stable no further testing or imaging needed DVT Px: Lovenox SQ Code Status Full code Disposition: pending Subjective Follow-up COPD exacerbation sitting up in bed, comfortable not in distress states breathing is about the same, still has cough- and wheezing denies chest pain no other symptoms Physical Exam Vital Signs (Past 24 Hours): Last Vital Signs Temp 36.6 C 04/28/18 08:00 Pulse 102 H 04/28/18 13:32 Resp 20 04/28/18 13:32 BP 131/76 04/28/18 08:00 Pulse Ox 97 04/28/18 13:32 Physical Exam: General- oriented x 3, not in distress, speaks in sentences with no effort or accessory muscle use Eyes- anicteric Neck- no JVD Lungs- (+) scattered wheeze and rhonchi bilaterally Heart- normal rate, regular rhythm; no murmurs Abdomen- normal bowel sounds, nondistended, soft, nontender Extremities- no pretibial edema, no calf tenderness Neuro- alert, oriented x 3; no gross focal neurologic deficits Skin- warm & dry (1) Respiratory failure, acute and chronic Respiratory failure complication: hypoxia Qualified Code(s): J96.21 - Acute and chronic respiratory failure with hypoxia
[2018-04-28] MEDS ORDERED: LEVALBUTEROL 1.25MG/0.5ML NEB INH SCH (17:00)
[2018-04-28] MEDS: SERTRALINE HCL 50 MG TABLET PO SCH (21:30)
[2018-04-28] MEDS: ATORVASTATIN 10 MG TAB PO SCH (21:31)
[2018-04-28] MEDS: ASCORBIC ACID 500 MG TAB PO SCH (21:31)
[2018-04-28] MEDS: ENOXAPARIN INJ 30 MG/0.3 ML SYR SQ SCH (21:32)
[2018-04-29] MEDS: ALBUTEROL HFA 8 GM INHALER INH PRN (02:19)
[2018-04-29] MEDS: NEOMYCIN/POLYMYX/BACITR OINT 15 GM TUBE EXT PRN (02:19)
[2018-04-29] MEDS: IPRATROPIUM BROMIDE NEB SOLN 0.02% 2.5 ML VIAL INH SCH ×6 (03:28→23:34)
[2018-04-29] MEDS: LEVALBUTEROL 1.25MG/0.5ML NEB INH SCH ×6 (03:29→23:34)
[2018-04-29] MEDS: methylPREDNISolone 40 MG in SYRINGE 0 ML IV SCH ×4 (04:12→22:08)
[2018-04-29] MEDS: CLOTRIMAZOLE 10 MG TROCHE BUCCAL SCH ×5 (06:31→22:08)
[2018-04-29] MEDS: BUDESONIDE 0.5 MG/2 ML VIAL (PULMICORT) NEB SCH ×2 (07:11→19:26)
[2018-04-29] MEDS: SODIUM CHLOR 7% 4 ML NEB INH SCH ×2 (07:24→19:26)
[2018-04-29] MEDS: LORazepam 1 MG TAB PO PRN ×2 (07:53→20:51)
[2018-04-29] MEDS: GUAIFENESIN/CODEINE 100MG/10MG 5ML UDC PO PRN ×2 (07:54→20:51)
[2018-04-29] MEDS: TRAMADOL HCL 50 MG TABLET PO PRN ×2 (07:54→20:51)
[2018-04-29] MEDS: PANTOprazole 40 MG TAB PO SCH ×2 (07:55→20:43)
[2018-04-29] MEDS: BENZONATATE 100 MG CAPSULE PO SCH ×3 (07:55→20:44)
[2018-04-29] MEDS: MONTELUKAST SODIUM 10 MG TABLET PO SCH (07:55)
[2018-04-29] MEDS: POTASSIUM CHLORIDE 20 MEQ TABCR PO SCH (07:56)
[2018-04-29] MEDS: LIDOCAINE 5% 1 PATCH TD SCH (07:58)
[2018-04-29] MEDS: FUROSEMIDE 20 MG TAB PO SCH (07:58)
[2018-04-29] MEDS: guaiFENesin 600 MG TABCR PO SCH ×2 (07:59→20:42)
[2018-04-29] MEDS: CHOLECALCIFEROL 1,000 UNITS TAB PO SCH ×2 (08:00→20:44)
[2018-04-29] MEDS: INSULIN ASPART 100 UNITS/ML 3 ML PEN SC SCH ×4 (09:23→20:42)
--- NOTE | 2018-04-29 11:51 | Pulmonology Progress Note ---
Date of Service April 29, 2018 Assessment & Plan (1) Fungal pneumonia: * Bronchoscopy with Dr. Casper revealed right lower lobe penicillium * Would discuss with infectious disease to see if this warrants treatment * Most likely this is colonization * Patient with no significant findings on chest x-ray or CT scan of the chest suggesting fungal pneumonia * Await infectious disease comment (2) Respiratory failure, acute and chronic: * Most likely COPD exacerbation * Patient appears to be at baseline * Home O2 requirements 2 L/min per nasal cannula * Ambulating the halls without hypoxia * No specific sputum production * No chest pain or tightness * Continue nebulizer treatments and steroid taper * Will need outpatient follow-up * Continue pulmonary vest and other pulmonary toileting Respiratory failure complication: hypoxia Qualified Code(s): J96.21 - Acute and chronic respiratory failure with hypoxia (3) Pulmonary nodule: * There is an 8 mm right middle lobe nodule which is unchanged since CT scan of January 22, 2016 * No significant lymphadenopathy on CT scan * Continue to follow outpatient (4) COPD exacerbation: * Code level 3 * PFTs with reversible airway disease * Continue with steroid taper -no benefit to IV steroids. Consider prednisone * Oxygenation adequate with 2 L of supplemental O2 via nasal cannula which is her home dose * Ambulating well in the hallways * Follow outpatient on discharge -follows with GOGO Dias and Dr. Casper Thank you for including us in the care of this patient. Please refer to Dr. Arrington's addendum for further recommendations. Supervising Physician Co-Signing Physician Notes I have seen and examined the patient with Ariel Easley PA-C and agree with his assessment and plan of care and recommendations. We are going to continue with current plan of care as prescribed. Will continue with current management as prescribed. Thank you. Dr. Shena Arrington. Subjective Attending: Dr. Arrington This is a 68-year-old female that has had multiple admissions with her most recent readmission being 04/13/2018. She has a pulmonary history of reversible airway disease that also has COPD Gold level 3. Recent sputum culture from bronchoscopy with Dr. Casper performed on 04/17/2018 reveals Penicillium which is suspected to be colonized. Patient is on chronic supplemental O2 at home at 2 L/min via nasal cannula. She is currently at baseline with her oxygen use and is also ambulating the hallway without desaturation or discomfort. The patient has a chronic complaint of chronic cough with difficulty clearing sputum. She was on hypertonic saline nebulizer treatments at home but states that this is too expensive and that she cannot afford it long time. She did seem to have some pulmonary clearing with the hypertonic nebulizers and produce clear sputum. She also has a pulmonary vest at home and a nebulizer for albuterol/ipratropium. She states that she feels at baseline but is afraid to go home as she is concerned about readmission. The patient denies any hemoptysis. She has no fever, sweats, rigors. She denies chest pain or tightness. She has no pleuritic pain. She does report that occasionally she does have oral candidiasis which she treats regularly with nystatin suspension. Overall the patient feels as though she is at baseline. She has a nebulizer, pulmonary vest, at home for which she received similar treatment. She does seem to improve periodically with IV versus p.o. steroids. She has no acute complaints. Physical Exam Vital Signs (Past 24 Hours): Last Vital Signs Temp 36.7 C 04/29/18 07:28 Pulse 98 H 04/29/18 11:09 Resp 14 04/29/18 11:09 BP 137/82 04/29/18 07:28 Pulse Ox 97 04/29/18 11:09 Physical Exam: GENERAL : No acute distress EYES: No icterus, gaze conjugate NOSE: No evidence of epistaxis MOUTH: No lesions or candidiasis NECK: Supple LUNGS: Bronchospasm appreciated in all lung zones both posterior as well as anterior. No specific rales or rhonchi appreciated. Good inspiratory effort. Deep inhalation does result in cough. No appreciable sputum production. HEART: Regular, rate controlled at rest. Tachycardic with inspiratory effort as well as ambulation (per nursing). ABDOMEN: Soft, NT, ND, BS Present EXTREMITIES: No LE edema, pedal pulses intact NEURO: A&OX3. No appreciation of any neurological deficits on exam. Results & Data Laboratory Results Name: KIMO KINGSTON Acct: [id number] Status: ADM [place] : 1950 [facility] [place]: 04/13/18 Age: 68 Sex: F Dis Date: Loc: [address]/Bed: N278-1 Spec: [id number] Collected: 04/17/180 Received: 04/17/18-0 [facility] Dr: Jose Carlos Casper MD Copy To: [place] MD Oconer, Joseph N., M.D. Pervez, Ayesha H., M.D. Vangala, Satish K., MD Self, Referred Source: Bronch Wash,Right Lower Lobe OV Order: Ordered: Geronimo-Oth Cul/Sm Procedure Result Verified Site Fungal Direct Prep Other Final 04/18/18-701 Fungal Direct Prep No Yeast or Hyphae Seen Fungal Culture Other Cult Preliminary 04/28/18-142 Organism 1 Penicillium species Quantity Rare Name: KIMO KINGSTON : 1950 PAGE 1 Printed: 04/29/18 7732 END OF REPORT Diagnostic Findings XR chest 1V portable CLINICAL HISTORY: wheezing dyspnea COMPARISON STUDY: 04/12/2018 FINDINGS: The bones soft tissues and hemidiaphragms are normal. The cardiomediastinal silhouette is normal. The lungs are clear. The pulmonary vasculature is normal. IMPRESSION: Negative chest. Electronically signed by: Nagi Hunt M.D. 04/27/2018 9:[address] ANGIOGRAPHY OF THE CHEST, PULMONARY EMBOLUS PROTOCOL CLINICAL HISTORY: Shortness of breath. Chest pain. COMPARISON STUDY: Chest CT October 10, 2017. Chest radiograph April 12, 2018. TECHNIQUE: Following IV administration of 118 mL of Optiray-320, helical axial images of the chest were obtained utilizing the pulmonary embolus protocol. Maximal intensity projections and sagittal and coronal reformats were viewed on an independent 3D workstation. IV contrast was administered without complication. Automated exposure control was utilized for the study. A dose lowering technique was utilized adhering to the principles of ALARA. CT DOSE: 501.06 mGy.cm FINDINGS: No pulmonary emboli are identified. This exam is mildly compromised respiratory motion. There is mild dilatation of the central pulmonary arteries. No thoracic aortic dissection or lymphadenopathy is present. The central airways are patent. Right lower lobe airspace opacity reflects atelectasis. There is no consolidation to suggest pneumonia. No pneumothorax or pleural effusion is present. An 8 mm right middle lobe nodule on image 123 of [address] of January 22, 2016. This is benign given stability. Bony thorax and upper abdomen are unremarkable. IMPRESSION: 1. No pulmonary emboli identified. 2. No consolidation. 3. No thoracic aortic dissection. Electronically signed by: Roni Ragland M.D. 04/13/2018 9:28 AM [place], [place] Operative Report Signed Patient: KIMO KINGSTON AAdmit Date: 04/13/18 MR#: [id number] Phy: Valentine Ramirez M.D. Acct ID:[id number] Phy: [place] MD Date: 1950Fa Phy: Jose Carlos Casper MD Age: 68Location: 2N Sex: F Room/Bed: [facility] cc: Jose Carlos Casper MD~ DICTATED BY: Jose Carlos Casper MD DATE OF OPERATION: 04/17/2018 TIME: 1200 hours. PROCEDURE: Fiberoptic bronchoscopy with bronchoalveolar lavage. INDICATIONS: Persistent cough refractory to aggressive out and inpatient therapy in a patient with chronic bronchitis. ANESTHESIA PREOPERATIVELY: None. ANESTHESIA DURING PROCEDURE: 5 mg IV Versed, 100 mcg IV fentanyl, 20 mL 2% Xylocaine spray above and below the cords, 4% viscous Xylocaine intranasally. DESCRIPTION OF PROCEDURE: Moderate conscious sedation was administered at 11:35 and completed at 11:50. Fiberoptic bronchoscope was inserted into the right naris with minimal difficulty and passed to the level of the true vocal cords. The cords appear to approximate normally with phonation without evidence for lesions or paralysis. The area was anesthetized with 2% Xylocaine spray and the scope was then introduced in the trachea and right and left tracheobronchial tree. The cielo was sharp. [id number] endoscopic dynamic airway collapse was seen involving the right main stem bronchus just below the cielo (EDAC). The right main stem bronchus was explored and no endobronchial lesion seen. Right upper lobe at the apical posterior and anterior segments, bronchus intermedius, right middle lobe in the medial and lateral segments and all basilar segments of right lower lobe were found to be free of endobronchial lesions. Thick mucoviscous inspissated mucus was lavaged from virtually all of the segmental bronchi involving the right lower lobe bronchus and the aspirate was sent for appropriate studies. Mucus pitting with bronchial crypts and clefts were visible throughout the right tracheobronchial tree consistent with the diagnosis of chronic bronchitis. The left tracheobronchial tree was explored and no endobronchial lesions were seen. Left upper lobe with the apical posterior and anterior segments, lingual subdivision, and left lower lobe were found to be free of endobronchial lesions down to subsegmental bronchi. Left lower lobe was copiously lavaged with normosol and similar inspissated mucus was lavaged and aspirated until clear. The procedure was terminated. The patient was given a nebulizer treatment with Xopenex 1.25 mg and transferred to the medical floor, hemodynamically stable. No signs of respiratory compromise. Will await microbiological and cytologic examination of the bronchial washings. I attest to the content of the Intraoperative Record and any orders documented therein. Any exceptions are noted below. Signed By:<Electronically signed by Jose Carlos Casper MD>04/18/18 1103
--- NOTE | 2018-04-29 17:23 | Hospitalist Progress Note ---
Date of Service April 29, 2018 Assessment & Plan (1) Fungal pneumonia: per Dr. Ramirez notes: History of severe baseline COPD, present with COPD exacerbation, status post bronchoscopy, bronchoscopy sample positive for fungal growth Bronchial washing: Growing fungus, not Lisette Final isolation, sensitivities still pending Discussed with pulmonology, and infectious disease: Per Dr. Wray: Given improvement without specific antifungal therapy, and lack of significant infiltration on chest x-ray, suspect that this represents colonization because of previous steroid use and antibiotic use. Recommends patient to be followed off of antifungal therapy until isolate identified. Antifungal therapy to be decided once identification completed. Immunology lab shows very low IgG 380( chronically low : IgG on 06/15/2017: 604 10/12/2017: 558 04/22/2018: 380 Normal IgAIgMIgE level will need out pt sterilization specialist referral for possible IgG treatment/infusion 04/29/18 less wheezing today cxr: no acute process increased Solumedrol 40mg IV q6h increased Nebs to q4h Pulmonary re-consulted Fungal culture: (+) Penicillium, Rare--> will discuss with ID (2) Respiratory failure, acute and chronic: per Dr. Ramirez notes: Secondary to COPD exacerbation Baseline advanced COPD Gold stage III On chronic Oxygen dependency Past Tobacco abuse Presented with hypoxia /cough: Acute on chronic respiratory failure Continued respiratory therapy: Vibration vest , hypertonic saline neb CTA of chest: No pulmonary emboli identified. No consolidation. No thoracic aortic dissection. Continue Bronchodilators, steroids, Abx Appreciate Pulmnology Input Status post bronchoscopy on 04/17/2018 Showed purulent mucoid secretions/bronchial specimen positive for fungal growth Per pulmonology, recommendation pt has completed 5 days of p.o. Levaquin, management per #1 Hyperglycemia Likely 2/2 steroids A1C:5.6 monitor GERD: Continue PPI Chronic anemia Hb at baseline monitor (3) Renal cyst: H/O Renal Cyst Renal ultrasound:No acute process /no renal mass or cyst noted renal function stable no further testing or imaging needed DVT Px: Lovenox SQ Code Status Full code Disposition: anticipate d/c home when medically stable Subjective Follow-up COPD exacerbation seen resting in bed, comfortable states she feels improved today compared to yesterday still has dry cough no chest pain denies other symptoms Physical Exam Vital Signs (Past 24 Hours): Last Vital Signs Temp 36.8 C 04/29/18 15:00 Pulse 108 H 04/29/18 15:13 Resp 20 04/29/18 15:13 BP 126/76 04/29/18 15:00 Pulse Ox 96 04/29/18 15:13 Physical Exam: General- oriented x 3, not in distress, speaks in sentences with no effort or accessory muscle use Eyes- anicteric Neck- no JVD Lungs- no rhonchi/wheezing today Heart- normal rate, regular rhythm; no murmurs Abdomen- normal bowel sounds, nondistended, soft, nontender Extremities- no pretibial edema, no calf tenderness Neuro- alert, oriented x 3; no gross focal neurologic deficits Skin- warm & dry Results & Data Laboratory Results Laboratory Results - last 24 hr 04/28/18 04/29/18 04/29/18 20:41 07:24 11:48 POC Glucose 137 H 149 H 203 H 04/29/18 16:17 POC Glucose 103 H (1) Respiratory failure, acute and chronic Respiratory failure complication: hypoxia Qualified Code(s): J96.21 - Acute and chronic respiratory failure with hypoxia
--- NOTE | 2018-04-29 19:09 | Hospitalist Progress Note ---
Date of Service April 29, 2018 Assessment & Plan (1) Fungal pneumonia: per Dr. Ramirez notes: History of severe baseline COPD, present with COPD exacerbation, status post bronchoscopy, bronchoscopy sample positive for fungal growth Bronchial washing: Growing fungus, not Lisette Final isolation, sensitivities still pending Discussed with pulmonology, and infectious disease: Per Dr. Wray: Given improvement without specific antifungal therapy, and lack of significant infiltration on chest x-ray, suspect that this represents colonization because of previous steroid use and antibiotic use. Recommends patient to be followed off of antifungal therapy until isolate identified. Antifungal therapy to be decided once identification completed. 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 Ramirez notes: Secondary to COPD exacerbation Baseline advanced COPD Gold stage III On chronic Oxygen dependency Past Tobacco abuse Presented with hypoxia /cough: Acute on chronic respiratory failure Continued respiratory therapy: Vibration vest , hypertonic saline neb CTA of chest: No pulmonary emboli identified. No consolidation. No thoracic aortic dissection. Continue Bronchodilators, steroids, Abx Appreciate Pulmnology Input Status post bronchoscopy on 04/17/2018 Showed purulent mucoid secretions/bronchial specimen positive for fungal growth Per pulmonology, recommendation pt has completed 5 days of p.o. Levaquin, management per #1 Hyperglycemia Likely 2/2 steroids A1C:5.6 monitor GERD: Continue PPI Chronic anemia Hb at baseline monitor (3) Renal cyst: H/O Renal Cyst Renal ultrasound:No acute process /no renal mass or cyst noted renal function stable no further testing or imaging needed DVT Px: Lovenox SQ Code Status Full code Disposition: anticipate d/c home when medically stable Physical Exam Vital Signs (Past 24 Hours): Last Vital Signs Temp 36.8 C 04/29/18 15:00 Pulse 108 H 04/29/18 15:13 Resp 20 04/29/18 15:13 BP 126/76 04/29/18 15:00 Pulse Ox 96 03/04/19 15:13 (1) Respiratory failure, acute and chronic Respiratory failure complication: hypoxia Qualified Code(s): J96.21 - Acute and chronic respiratory failure with hypoxia
[2018-04-29] MEDS: ATORVASTATIN 10 MG TAB PO SCH (20:42)
[2018-04-29] MEDS: ASCORBIC ACID 500 MG TAB PO SCH (20:44)
[2018-04-29] MEDS: SERTRALINE HCL 50 MG TABLET PO SCH (20:45)
[2018-04-29] MEDS: ENOXAPARIN INJ 30 MG/0.3 ML SYR SQ SCH (22:09)
[2018-04-30] MEDS: IPRATROPIUM BROMIDE NEB SOLN 0.02% 2.5 ML VIAL INH SCH ×5 (03:34→19:18)
[2018-04-30] MEDS: LEVALBUTEROL 1.25MG/0.5ML NEB INH SCH ×3 (03:34→07:30)
[2018-04-30] MEDS: methylPREDNISolone 40 MG in SYRINGE 0 ML IV SCH ×2 (04:05→09:01)
[2018-04-30] MEDS: CLOTRIMAZOLE 10 MG TROCHE BUCCAL SCH ×5 (06:16→22:06)
[2018-04-30] MEDS: BUDESONIDE 0.5 MG/2 ML VIAL (PULMICORT) NEB SCH ×2 (07:31→19:18)
[2018-04-30] MEDS: guaiFENesin 600 MG TABCR PO SCH ×2 (08:57→20:43)
[2018-04-30] MEDS: LIDOCAINE 5% 1 PATCH TD SCH (08:57)
[2018-04-30] MEDS: CHOLECALCIFEROL 1,000 UNITS TAB PO SCH ×2 (08:58→20:41)
[2018-04-30] MEDS: MONTELUKAST SODIUM 10 MG TABLET PO SCH (08:58)
[2018-04-30] MEDS: PANTOprazole 40 MG TAB PO SCH ×2 (08:58→20:43)
[2018-04-30] MEDS: BENZONATATE 100 MG CAPSULE PO SCH ×3 (08:59→20:42)
[2018-04-30] MEDS: FUROSEMIDE 20 MG TAB PO SCH (09:01)
[2018-04-30] MEDS: POTASSIUM CHLORIDE 20 MEQ TABCR PO SCH (09:01)
[2018-04-30] MEDS: INSULIN ASPART 100 UNITS/ML 3 ML PEN SC SCH ×4 (09:03→20:48)
[2018-04-30] MEDS: TRAMADOL HCL 50 MG TABLET PO PRN ×2 (09:11→20:43)
[2018-04-30] MEDS: GUAIFENESIN/CODEINE 100MG/10MG 5ML UDC PO PRN ×2 (09:12→20:41)
[2018-04-30] MEDS: LORazepam 1 MG TAB PO PRN ×2 (09:12→20:44)
--- NOTE | 2018-04-30 09:41 | Hospitalist Progress Note ---
Date of Service April 30, 2018 Assessment & Plan (1) Fungal pneumonia: per Dr. Ramirez notes: History of severe baseline COPD, present with COPD exacerbation, status post bronchoscopy, bronchoscopy sample positive for fungal growth Bronchial washing: Growing fungus, not Lisette Final isolation, sensitivities still pending Discussed with pulmonology, and infectious disease: Per Dr. Wray: Given improvement without specific antifungal therapy, and lack of significant infiltration on chest x-ray, suspect that this represents colonization because of previous steroid use and antibiotic use. Recommends patient to be followed off of antifungal therapy until isolate identified. Antifungal therapy to be decided once identification completed. 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 Ramirez notes: Secondary to COPD exacerbation Baseline advanced COPD Gold stage III On chronic Oxygen dependency Past Tobacco abuse Presented with hypoxia /cough: Acute on chronic respiratory failure Continued respiratory therapy: Vibration vest , hypertonic saline neb CTA of chest: No pulmonary emboli identified. No consolidation. No thoracic aortic dissection. Continue Bronchodilators, steroids Appreciate Pulmnology Input Status post bronchoscopy on 04/17/2018 Showed purulent mucoid secretions/bronchial specimen positive for fungal growth Per pulmonology, recommendation pt has completed 5 days of p.o. Levaquin, management per #1 Hyperglycemia Likely 2/2 steroids A1C:5.6 monitor GERD: Continue PPI Chronic anemia Hb at baseline monitor (3) Renal cyst: H/O Renal Cyst Renal ultrasound:No acute process /no renal mass or cyst noted renal function stable no further testing or imaging needed DVT Px: Lovenox SQ Code Status Full code Disposition: anticipate d/c home when medically stable Subjective Follow-up for COPD exacerbation Seen resting in bed, comfortable States she feels improved today compared to yesterday Less dyspnea after ambulation, less coughing No other symptoms Physical Exam Vital Signs (Past 24 Hours): Last Vital Signs Temp 36.9 C 04/30/18 06:52 Pulse 82 04/30/18 06:52 Resp 18 04/30/18 07:33 BP 141/78 H 03/05/19 06:52 Pulse Ox 97 04/30/18 07:33 Physical Exam: General- oriented x 3, not in distress, speaks in sentences with no effort or accessory muscle use Eyes- anicteric Neck- no JVD Lungs-distant breath sounds faint wheeze bilaterally Heart- normal rate, regular rhythm; no murmurs Abdomen- normal bowel sounds, nondistended, soft, nontender Extremities- no pretibial edema, no calf tenderness Neuro- alert, oriented x 3; no gross focal neurologic deficits Skin- warm & dry Results & Data Laboratory Results Laboratory Results - last 24 hr 04/29/18 04/30/18 04/30/18 20:07 07:11 11:52 POC Glucose 135 H 140 H 137 H 04/30/18 16:30 POC Glucose 98 (1) Respiratory failure, acute and chronic Respiratory failure complication: hypoxia Qualified Code(s): J96.21 - Acute and chronic respiratory failure with hypoxia
[2018-04-30] MEDS: predniSONE 20 MG TAB PO SCH ×2 (13:04→20:42)
[2018-04-30] MEDS: LEVALBUTEROL HCL 1.25 MG/3 ML NEB INH SCH ×2 (13:59→19:18)
[2018-04-30] MEDS: SODIUM CHLOR 7% 4 ML NEB INH SCH ×2 (16:22→19:19)
--- NOTE | 2018-04-30 18:47 | Pulmonology Progress Note ---
Date of Service April 30, 2018 Assessment & Plan (1) COPD exacerbation: Patient is doing better from a clinical perspective Discontinue IV steroids and continue with prednisone taper Follow-up with pulmonary office with Dr. Casper, Prabha Vogt, or Bubba Paez Recommend patient being seen within the next 7 days at that office Will assist with appointment if needed Oxygenation adequate with supplemental O2 at home rate Continue to ambulate in hallways as tolerated (2) Shortness of breath: Secondary to COPD exacerbation Much improved since admission Discontinue IV steroids and continue with prednisone taper Follow-up with pulmonary office as above Continue to ambulate No hypoxia with ambulation Thank you for including us in the care of this patient. The pulmonary team will sign off at this time. Please feel free to reconsult as needed. Supervising Physician Co-Signing Physician Notes The patient was seen and examined by me along with Ariel Easley PA-C. I agree with the assessment and recommendations as by Ariel Easley PA-C. Will continue with current plan of care. D/W the Hospitalist/Primary care. Subjective Patient seen and examined at bedside. She states that she continues to have episodic shortness of breath but overall is improved. Continues with some wheezes but that also has improved. She continue with a dry cough with no sputum production. She denies any fever, sweats, chills, rigors. She has no chest pain or tightness. She denies any back pain. She is ambulating in the hallway without dyspnea on exertion. She has no other acute complaints. Physical Exam Vital Signs (Past 24 Hours): Last Vital Signs Temp 36.8 C 04/30/18 15:54 Pulse 83 04/30/18 15:54 Resp 16 04/30/18 15:54 BP 153/80 H 04/30/18 15:54 Pulse Ox 94 04/30/18 15:54 Physical Exam: GENERAL : No acute distress EYES: No icterus, gaze conjugate NOSE: No evidence of epistaxis MOUTH: No lesions or candidiasis NECK: Supple LUNGS: Continues with wheezes more pronounced in the mid to upper becerra in the posterior HEART: Regular, rate controlled ABDOMEN: Soft, NT, ND, BS Present EXTREMITIES: No LE edema, pedal pulses intact NEURO: A&OX3 Results & Data Laboratory Results No further lab results since previous note Diagnostic Findings No further diagnostics since previous note
[2018-04-30] MEDS: ATORVASTATIN 10 MG TAB PO SCH (20:42)
[2018-04-30] MEDS: ASCORBIC ACID 500 MG TAB PO SCH (20:42)
[2018-04-30] MEDS: SERTRALINE HCL 50 MG TABLET PO SCH (20:47)
[2018-04-30] MEDS: ENOXAPARIN INJ 30 MG/0.3 ML SYR SQ SCH (20:49)
[2018-05-01] MEDS: LEVALBUTEROL HCL 1.25 MG/3 ML NEB INH SCH ×4 (02:07→19:41)
[2018-05-01] MEDS: IPRATROPIUM BROMIDE NEB SOLN 0.02% 2.5 ML VIAL INH SCH ×4 (02:07→19:40)
[2018-05-01] MEDS: CLOTRIMAZOLE 10 MG TROCHE BUCCAL SCH ×5 (06:16→22:15)
[2018-05-01] MEDS: BUDESONIDE 0.5 MG/2 ML VIAL (PULMICORT) NEB SCH ×2 (07:25→19:41)
[2018-05-01] MEDS: SODIUM CHLOR 7% 4 ML NEB INH SCH ×2 (07:25→19:41)
[2018-05-01] MEDS: guaiFENesin 600 MG TABCR PO SCH ×2 (08:15→20:28)
[2018-05-01] MEDS: INSULIN ASPART 100 UNITS/ML 3 ML PEN SC SCH ×4 (08:15→20:30)
[2018-05-01] MEDS: POTASSIUM CHLORIDE 20 MEQ TABCR PO SCH (08:16)
[2018-05-01] MEDS: MONTELUKAST SODIUM 10 MG TABLET PO SCH (08:16)
[2018-05-01] MEDS: predniSONE 20 MG TAB PO SCH ×2 (08:16→20:28)
[2018-05-01] MEDS: CHOLECALCIFEROL 1,000 UNITS TAB PO SCH ×2 (08:17→20:28)
[2018-05-01] MEDS: PANTOprazole 40 MG TAB PO SCH ×2 (08:18→20:28)
[2018-05-01] MEDS: FUROSEMIDE 20 MG TAB PO SCH (08:18)
[2018-05-01] MEDS: LIDOCAINE 5% 1 PATCH TD SCH (08:18)
[2018-05-01] MEDS: BENZONATATE 100 MG CAPSULE PO SCH ×3 (08:19→20:30)
[2018-05-01] MEDS: GUAIFENESIN/CODEINE 100MG/10MG 5ML UDC PO PRN ×2 (08:22→20:37)
[2018-05-01] MEDS: LORazepam 1 MG TAB PO PRN ×2 (08:22→20:37)
[2018-05-01] MEDS: TRAMADOL HCL 50 MG TABLET PO PRN ×2 (08:22→20:37)
[2018-05-01] MEDS: ATORVASTATIN 10 MG TAB PO SCH (20:28)
[2018-05-01] MEDS: SERTRALINE HCL 50 MG TABLET PO SCH (20:29)
[2018-05-01] MEDS: ASCORBIC ACID 500 MG TAB PO SCH (20:29)
--- NOTE | 2018-05-01 21:33 | Hospitalist Progress Note ---
Date of Service May 01, 2018 Assessment & Plan (1) Fungal pneumonia: per Dr. Ramirez notes: History of severe baseline COPD, present with COPD exacerbation, status post bronchoscopy, bronchoscopy sample positive for fungal growth Bronchial washing: Growing fungus, not Lisette Final isolation, sensitivities still pending Discussed with pulmonology, and infectious disease: Per Dr. Wray: Given improvement without specific antifungal therapy, and lack of significant infiltration on chest x-ray, suspect that this represents colonization because of previous steroid use and antibiotic use. Recommends patient to be followed off of antifungal therapy until isolate identified. Antifungal therapy to be decided once identification completed. Immunology lab shows very low IgG 380( chronically low : IgG on 06/15/2017: 604 10/12/2017: 558 04/22/2018: 380 Normal IgAIgMIgE level will need out pt clinical account specialist referral for possible IgG treatment/infusion 05/01/2018 only with faint wheeze cxr: no acute process continue prednisone, then taper slowly Antifungal not recommended, continue nebs Discussed with ID (2) Respiratory failure, acute and chronic: per Dr. Ramirez notes: Secondary to COPD exacerbation Baseline advanced COPD Gold stage III On chronic Oxygen dependency Past Tobacco abuse Presented with hypoxia /cough: Acute on chronic respiratory failure Continued respiratory therapy: Vibration vest , hypertonic saline neb CTA of chest: No pulmonary emboli identified. No consolidation. No thoracic aortic dissection. Continue Bronchodilators, steroids Appreciate Pulmnology Input Status post bronchoscopy on 04/17/2018 Showed purulent mucoid secretions/bronchial specimen positive for fungal growth Per pulmonology, recommendation pt has completed 5 days of p.o. Levaquin, management per #1 Hyperglycemia Likely 2/2 steroids A1C:5.6 monitor GERD: Continue PPI Chronic anemia Hb at baseline monitor (3) Renal cyst: H/O Renal Cyst Renal ultrasound:No acute process /no renal mass or cyst noted renal function stable no further testing or imaging needed DVT Px: Lovenox SQ Code Status Full code Disposition: anticipate d/c home when medically stable Subjective Follow-up for COPD exacerbation Seen resting in bed, comfortable States she feels improved today compared to yesterday Less dyspnea after ambulation, less coughing No other symptoms Physical Exam Vital Signs (Past 24 Hours): Last Vital Signs Temp 36.3 C L 05/01/18 07:30 Pulse 89 05/01/18 19:44 Resp 16 05/01/18 19:44 BP 120/75 05/01/18 07:30 Pulse Ox 98 05/01/18 19:44 Physical Exam: General- oriented x 3, not in distress, speaks in sentences with no effort or accessory muscle use Eyes- anicteric Neck- no JVD Lungs- faint wheeze bl, no rhonchi Heart- normal rate, regular rhythm; no murmurs Abdomen- normal bowel sounds, nondistended, soft, nontender Extremities- no pretibial edema, no calf tenderness Neuro- alert, oriented x 3; no gross focal neurologic deficits Skin- warm & dry Results & Data Laboratory Results Laboratory Results - last 24 hr 05/01/18 05/01/18 05/01/18 07:28 11:39 16:29 POC Glucose 112 H 115 H 105 H 05/01/18 20:25 POC Glucose 94 (1) Respiratory failure, acute and chronic Respiratory failure complication: hypoxia Qualified Code(s): J96.21 - Acute and chronic respiratory failure with hypoxia
[2018-05-01] MEDS: ENOXAPARIN INJ 30 MG/0.3 ML SYR SQ SCH (22:16)
[2018-05-02] MEDS: IPRATROPIUM BROMIDE NEB SOLN 0.02% 2.5 ML VIAL INH SCH ×4 (01:58→20:35)
[2018-05-02] MEDS: LEVALBUTEROL HCL 1.25 MG/3 ML NEB INH SCH ×4 (01:59→20:36)
[2018-05-02] MEDS: CLOTRIMAZOLE 10 MG TROCHE BUCCAL SCH ×5 (06:17→21:27)
[2018-05-02] MEDS: TRAMADOL HCL 50 MG TABLET PO PRN ×2 (06:18→21:19)
[2018-05-02] MEDS: SODIUM CHLOR 7% 4 ML NEB INH SCH ×2 (06:59→20:37)
[2018-05-02] MEDS: BUDESONIDE 0.5 MG/2 ML VIAL (PULMICORT) NEB SCH ×2 (06:59→20:35)
[2018-05-02] MEDS: CHOLECALCIFEROL 1,000 UNITS TAB PO SCH ×2 (09:36→21:18)
[2018-05-02] MEDS: FUROSEMIDE 20 MG TAB PO SCH (09:37)
[2018-05-02] MEDS: PANTOprazole 40 MG TAB PO SCH ×2 (09:37→21:17)
[2018-05-02] MEDS: MONTELUKAST SODIUM 10 MG TABLET PO SCH (09:37)
[2018-05-02] MEDS: predniSONE 20 MG TAB PO SCH ×2 (09:37→21:17)
[2018-05-02] MEDS: guaiFENesin 600 MG TABCR PO SCH ×2 (09:37→21:16)
[2018-05-02] MEDS: POTASSIUM CHLORIDE 20 MEQ TABCR PO SCH (09:38)
[2018-05-02] MEDS: LIDOCAINE 5% 1 PATCH TD SCH (09:38)
[2018-05-02] MEDS: BENZONATATE 100 MG CAPSULE PO SCH ×3 (09:38→21:18)
[2018-05-02] MEDS: INSULIN ASPART 100 UNITS/ML 3 ML PEN SC SCH ×4 (09:43→21:19)
[2018-05-02] MEDS: LORazepam 1 MG TAB PO PRN ×2 (09:51→21:19)
[2018-05-02] MEDS: GUAIFENESIN/CODEINE 100MG/10MG 5ML UDC PO PRN ×2 (09:51→21:19)
--- NOTE | 2018-05-02 16:11 | Hospitalist Progress Note ---
Date of Service May 02, 2018 Assessment & Plan (1) Fungal pneumonia: per Dr. Ramirez notes: History of severe baseline COPD, present with COPD exacerbation, status post bronchoscopy, bronchoscopy sample positive for fungal growth Bronchial washing: Growing fungus, not Lisette Final isolation, sensitivities still pending Discussed with pulmonology, and infectious disease: Per Dr. Wray: Given improvement without specific antifungal therapy, and lack of significant infiltration on chest x-ray, suspect that this represents colonization because of previous steroid use and antibiotic use. Recommends patient to be followed off of antifungal therapy until isolate identified. Antifungal therapy to be decided once identification completed. Immunology lab shows very low IgG 380( chronically low : IgG on 06/15/2017: 604 10/12/2017: 558 04/22/2018: 380 Normal IgAIgMIgE level will need out pt registration scheduling specialist referral for possible IgG treatment/infusion 05/02/2018 stable while on prednisone 40mg BID cxr: no acute process continue prednisone, then taper slowly Antifungal not recommended, continue nebs Discussed with ID anticipate d/c tomorrow (2) Respiratory failure, acute and chronic: per Dr. Ramirez notes: Secondary to COPD exacerbation Baseline advanced COPD Gold stage III On chronic Oxygen dependency Past Tobacco abuse Presented with hypoxia /cough: Acute on chronic respiratory failure Continued respiratory therapy: Vibration vest , hypertonic saline neb CTA of chest: No pulmonary emboli identified. No consolidation. No thoracic aortic dissection. Continue Bronchodilators, steroids Appreciate Pulmnology Input Status post bronchoscopy on 04/17/2018 Showed purulent mucoid secretions/bronchial specimen positive for fungal growth Per pulmonology, recommendation pt has completed 5 days of p.o. Levaquin, management per #1 Hyperglycemia Likely 2/2 steroids A1C:5.6 monitor GERD: Continue PPI Chronic anemia Hb at baseline monitor (3) Renal cyst: H/O Renal Cyst Renal ultrasound:No acute process /no renal mass or cyst noted renal function stable no further testing or imaging needed DVT Px: Lovenox SQ Code Status Full code Disposition: anticipate d/c home tomorrow Subjective Follow-up for COPD exacerbation Seen resting in bed, comfortable using laptop feeling improved today compared to previous days less cough, still nonproductive denies other symptoms Physical Exam Vital Signs (Past 24 Hours): Last Vital Signs Temp 36.5 C 05/02/18 14:47 Pulse 93 H 05/02/18 14:47 Resp 18 05/02/18 14:47 BP 143/78 H 05/02/18 14:47 Pulse Ox 96 05/02/18 14:47 Physical Exam: General- oriented x 3, not in distress, speaks in sentences with no effort or accessory muscle use Eyes- anicteric Neck- no JVD Lungs- faint wheeze right side, clear on the left Heart- normal rate, regular rhythm; no murmurs Abdomen- normal bowel sounds, nondistended, soft, nontender Extremities- no pretibial edema, no calf tenderness Neuro- alert, oriented x 3; no gross focal neurologic deficits Skin- warm & dry (1) Respiratory failure, acute and chronic Respiratory failure complication: hypoxia Qualified Code(s): J96.21 - Acute and chronic respiratory failure with hypoxia
[2018-05-02] MEDS: SERTRALINE HCL 50 MG TABLET PO SCH (21:16)
[2018-05-02] MEDS: ATORVASTATIN 10 MG TAB PO SCH (21:16)
[2018-05-02] MEDS: ASCORBIC ACID 500 MG TAB PO SCH (21:18)
[2018-05-02] MEDS: ENOXAPARIN INJ 30 MG/0.3 ML SYR SQ SCH (21:26)
[2018-05-03] MEDS: ONDANSETRON 4 MG TAB PO PRN (01:26)
[2018-05-03] MEDS: LEVALBUTEROL HCL 1.25 MG/3 ML NEB INH SCH ×3 (01:52→13:58)
[2018-05-03] MEDS: IPRATROPIUM BROMIDE NEB SOLN 0.02% 2.5 ML VIAL INH SCH ×3 (01:52→13:57)
[2018-05-03] MEDS: CLOTRIMAZOLE 10 MG TROCHE BUCCAL SCH ×2 (06:04→10:26)
[2018-05-03] MEDS: BUDESONIDE 0.5 MG/2 ML VIAL (PULMICORT) NEB SCH (07:25)
[2018-05-03] MEDS: SODIUM CHLOR 7% 4 ML NEB INH SCH (07:25)
[2018-05-03] MEDS: INSULIN ASPART 100 UNITS/ML 3 ML PEN SC SCH ×2 (08:50→13:02)
[2018-05-03] MEDS: GUAIFENESIN/CODEINE 100MG/10MG 5ML UDC PO PRN (08:59)
[2018-05-03] MEDS: TRAMADOL HCL 50 MG TABLET PO PRN (09:00)
[2018-05-03] MEDS: LORazepam 1 MG TAB PO PRN (09:00)
[2018-05-03] MEDS: LIDOCAINE 5% 1 PATCH TD SCH (09:01)
[2018-05-03] MEDS: FUROSEMIDE 20 MG TAB PO SCH (09:01)
[2018-05-03] MEDS: POTASSIUM CHLORIDE 20 MEQ TABCR PO SCH (09:01)
[2018-05-03] MEDS: guaiFENesin 600 MG TABCR PO SCH (09:02)
[2018-05-03] MEDS: predniSONE 20 MG TAB PO SCH (09:03)
[2018-05-03] MEDS: MONTELUKAST SODIUM 10 MG TABLET PO SCH (09:05)
[2018-05-03] MEDS: CHOLECALCIFEROL 1,000 UNITS TAB PO SCH (09:06)
[2018-05-03] MEDS: BENZONATATE 100 MG CAPSULE PO SCH ×2 (09:06→13:02)
[2018-05-03] MEDS: PANTOprazole 40 MG TAB PO SCH (10:25)
--- NOTE | 2018-05-03 12:59 | Hospitalist Progress Note ---
Date of Service May 03, 2018 Assessment & Plan (1) Fungal pneumonia: per Dr. Ramirez notes: History of severe baseline COPD, present with COPD exacerbation, status post bronchoscopy, bronchoscopy sample positive for fungal growth Bronchial washing: Growing fungus, not Lisette Final isolation, sensitivities still pending Discussed with pulmonology, and infectious disease: Per Dr. Wray: Given improvement without specific antifungal therapy, and lack of significant infiltration on chest x-ray, suspect that this represents colonization because of previous steroid use and antibiotic use. Recommends patient to be followed off of antifungal therapy until isolate identified. Antifungal therapy to be decided once identification completed. Immunology lab shows very low IgG 380( chronically low : IgG on 06/15/2017: 604 10/12/2017: 558 04/22/2018: 380 Normal IgAIgMIgE level will need out pt floor care specialist referral for possible IgG treatment/infusion 05/02/2018 stable while on prednisone 40mg BID cxr: no acute process continue prednisone, then taper slowly Antifungal not recommended, continue nebs Discussed with ID anticipate d/c tomorrow 05/03/2018 improved overall d/c home today on slow Prednisone taper starting at 40mg BID ff up with Pulmonology Clinic this coming week ff up with PCP this coming week (2) Respiratory failure, acute and chronic: per Dr. Ramirez notes: Secondary to COPD exacerbation Baseline advanced COPD Gold stage III On chronic Oxygen dependency Past Tobacco abuse Presented with hypoxia /cough: Acute on chronic respiratory failure Continued respiratory therapy: Vibration vest , hypertonic saline neb CTA of chest: No pulmonary emboli identified. No consolidation. No thoracic aortic dissection. Continue Bronchodilators, steroids Appreciate Pulmnology Input Status post bronchoscopy on 04/17/2018 Showed purulent mucoid secretions/bronchial specimen positive for fungal growth Per pulmonology, recommendation pt has completed 5 days of p.o. Levaquin, management per #1 Hyperglycemia Likely 2/2 steroids A1C:5.6 monitor GERD: Continue PPI Chronic anemia Hb at baseline monitor (3) Renal cyst: H/O Renal Cyst Renal ultrasound:No acute process /no renal mass or cyst noted renal function stable no further testing or imaging needed DVT Px: Lovenox SQ Code Status Full code Disposition: d/c today ff up with Pulmonary 05/07 at 130pm with DIRECTOR EM[employer]OY[employer] Prabha Russell. ff up with PCP in 1 week. Patient prefers to call for her appointment. Subjective ff up for COPD exacerbation seen resting in bed, comfortable states she feels better overall breathing and cough has improved no sputum denies other symptoms states she is ready and would like to be discharged today Physical Exam Vital Signs (Past 24 Hours): Last Vital Signs Temp 36.8 C 05/03/18 11:54 Pulse 90 05/03/18 11:54 Resp 19 05/03/18 11:54 BP 137/85 05/03/18 11:54 Pulse Ox 95 05/03/18 11:54 Physical Exam: General- oriented x 3, not in distress, speaks in sentences with no effort or accessory muscle use Eyes- anicteric Neck- no JVD Lungs- faint intermittent wheeze , no crackles good air entry bilaterally Heart- normal rate, regular rhythm; no murmurs Abdomen- normal bowel sounds, nondistended, soft, nontender Extremities- no pretibial edema, no calf tenderness Neuro- alert, oriented x 3; no gross focal neurologic deficits Skin- warm & dry (1) Respiratory failure, acute and chronic Respiratory failure complication: hypoxia Qualified Code(s): J96.21 - Acute and chronic respiratory failure with hypoxia
--- NOTE | 2018-05-04 07:34 | Discharge Summary ---
Date of Service May 04, 2018 Admission HPI Per Admitting Provider History obtained from patient and records. Medical history is significant for chronic respiratory failure secondary to COPD on home O2, past tobacco/alcohol abuse, hyperlipidemia, IBS per his records, ELÍAS as per records, GERD. chronic anemia (baseline hemoglobin of 10) Recent confinement January 2018 for COPD exacerbation. Last few weeks patient feeling more short of breath with dry cough symptoms. Intermittent sharp stabbing substernal pain. Denies aspiration. Admits to some chills. Worsening symptoms the last day. Flu-like symptoms noted as well At the ER, patient received Solu-Medrol and breathing treatments for COPD exacerbation. Admission Exam Per Admitting Provider Vital Signs (Past 24 Hours): Last Vital Signs Temp 37.3 C 04/12/18 19:50 Pulse 104 H 04/12/18 22:04 Resp 04/12/18 22:04 BP 140/70 04/12/18 22:04 Pulse Ox 97 04/12/18 22:04 Physical Exam: GENERAL: Comfortable, slightly anxious, no respiratory distress SKIN: Pallor , warm HEENT: Bespectacled, pale palpebral conjunctivae, no ptosis, dry buccal mucosa NECK : Supple, short, no tenderness CHEST : Decreased breath sounds, no tenderness HEART : Tachycardic, no obvious murmurs ABDOMEN: Some distention, nontender EXTREMITIES : No LE swelling/tenderness, no other conspicuous deformities noted NEUROLOGIC : Coherent, no facial asymmetry, no other gross focality Principal Diagnosis COPD EXACERBATION Discharge Exam Vital Signs (Past 24 Hours): Last Vital Signs Temp 36.8 C 05/03/18 11:54 Pulse 90 05/03/18 11:54 Resp 05/03/18 11:54 BP 137/85 05/03/18 11:54 Pulse Ox 95 05/03/18 11:54 Physical Exam: General- oriented x 3, not in distress, speaks in sentences with no effort or accessory muscle use Eyes- anicteric Neck- no JVD Lungs- faint intermittent wheeze , no crackles good air entry bilaterally Heart- normal rate, regular rhythm; no murmurs Abdomen- normal bowel sounds, nondistended, soft, nontender Extremities- no pretibial edema, no calf tenderness Neuro- alert, oriented x 3; no gross focal neurologic deficits Skin- warm & dry Discharge Data Allergies Allergy/AdvReac Type Severity Reaction Status Date / Time No Known Allergies Allergy Verified 04/12/18 20:53 Consultations 04/12/18 23:48 ED Decision to Admit Stat 04/13/18 00:25 ED Decision to Admit Stat 04/13/18 02:29 Consult Pulmonology Routine 04/22/18 12:30 Consult Infectious Diseases Routine Procedures Performed Operation Date: 04/17/18 14:00 Actual Procedures p Bronchoscopy Radiology(Bilateral) - Jose Carlos Casper MD Ordered Studies 04/13/18 00:27 CT angio chest PE protocol Urgent CT ANGIOGRAPHY OF THE CHEST, PULMONARY EMBOLUS PROTOCOL CLINICAL HISTORY: Shortness of breath. Chest pain. COMPARISON STUDY: Chest CT October 10, 2017. Chest radiograph April 12, 2018. TECHNIQUE: Following IV administration of 118 mL of Optiray-320, helical axial images of the chest were obtained utilizing the pulmonary embolus protocol. Maximal intensity projections and sagittal and coronal reformats were viewed on an independent 3D workstation. IV contrast was administered without complication. Automated exposure control was utilized for the study. A dose lowering technique was utilized adhering to the principles of ALARA. CT DOSE: 501.06 mGy.cm FINDINGS: No pulmonary emboli are identified. This exam is mildly compromised respiratory motion. There is mild dilatation of the central pulmonary arteries. No thoracic aortic dissection or lymphadenopathy is present. The central airways are patent. Right lower lobe airspace opacity reflects atelectasis. There is no consolidation to suggest pneumonia. No pneumothorax or pleural effusion is present. An 8 mm right middle lobe nodule on image 123 of [address] of January 22, 2016. This is benign given stability. Bony thorax and upper abdomen are unremarkable. IMPRESSION: 1. No pulmonary emboli identified. 2. No consolidation. 3. No thoracic aortic dissection. 04/14/18 11:05 US renal/blad retro comp Routine EXAMINATION: RENAL ULTRASOUND CLINICAL HISTORY: Renal Cyst COMPARISON STUDY: Biliary ultrasound dated 11/21/2015 FINDINGS: The right kidney measures 10.6 cm. The left kidney measures 9.7 cm. There is no evidence of hydronephrosis. There are no renal masses. The bladder was not visualized and presumably empty. IMPRESSION : 1. No renal masses identified. No evidence of hydronephrosis 2. Nonvisualization of the bladder Hospital Course (1) Respiratory failure, acute and chronic: Secondary to COPD exacerbation Baseline advanced COPD Gold stage III On chronic Oxygen dependency Past Tobacco abuse Presented with hypoxia /cough: Acute on chronic respiratory failure CTA of chest: No pulmonary emboli identified. No consolidation. No thoracic aortic dissection. Status post bronchoscopy on 04/17/2018 Showed purulent mucoid secretions/bronchial specimen positive for fungal growth completed 5 days of p.o. Levaquin Bronchial washing: Penicilium--> ID consulted, treatment not recommended Per ID Dr. Wray: Given improvement without specific antifungal therapy, and lack of significant infiltration on chest x-ray, suspect that this represents colonization because of previous steroid use and antibiotic use. Immunology lab shows very low IgG 380( chronically low : IgG on 06/15/2017: 604 10/12/2017: 558 04/22/2018: 380 Normal IgAIgMIgE level will need out pt stars specialist referral for possible IgG treatment/infusion patient transitioned from IV Solumedrol to PO Prednisone slowly improved stable while on prednisone 40mg BID continue prednisone, then taper slowly; continue Nebs d/c home on slow Prednisone taper starting at 40mg BID ff up with Pulmonology Clinic this coming week ff up with PCP this coming week Hyperglycemia Likely 2/2 steroids A1C:5.6 monitor while on Prednisone GERD: Continue PPI Chronic anemia Hb at baseline monitor Disposiiton home with home health ff up with PCP and Pulmonary as noted above (2) Renal cyst: H/O Renal Cyst Renal ultrasound:No acute process /no renal mass or cyst noted renal function stable no further testing or imaging needed DVT Px: Lovenox SQ Code Status Full code Disposition: d/c today ff up with Pulmonary 05/07 at 130pm with ESTRADA Salomon. ff up with PCP in 1 week. Patient prefers to call for her appointment. Total Time Total Time Spent Total Time Spent (In Minutes): 30 minutes Discharge Plan Discharge Items Patient Disposition: Home - Home Health Services Reason For Visit: RESP FAILURE Discharge Diagnosis: COPD EXACERBATION Discharge Goals: Diagnostic testing and Therapeutic intervention Activity: As commented below Activity Comment: NO HEAVY EXERTION Lifting: Wait until after follow-up appointment Exercise/Sports: Wait until after follow-up appointment Driving/Machine Use Comment: NO DRIVING Non-emergency contact: Primary Care Provider and Air Twist Operator Call non-emergency contact if: you have any medication questions, your symptoms worsen and you have a fever Diet: Carb Consistent or DM2 Addtl Provider Instructions: PLEASE FOLLOW UP WITH PULMONARY CLINIC C/O BLISTER RUST ERADICATOR CARROLL SALOMON ON 05/07/18Sunday AT 1:30PM. PLEASE FOLLOW UP WITH DR. CLEMONS IN 1 WEEK. ALWAYS TAKE PREDNISONE WITH A FULL STOMACH. CHECK BLOOD SUGAR LEVEL DAILY AND CALL PRIMARY CARE PHYSICIAN IMMEDIATELY IF WITH READINGS> 200. IF READING IS >300, CALL PRIMARY CARE PHYSICIAN OR RETURN TO ER IMMEDIATELY. CALL PRIMARY CARE PHYSICIAN/SALES REPRESENTATIVE PUBLIC UTILITIES OR RETURN TO ER IMMEDIATELY IF WITH WORSENING OF SYMPTOMS. Prescriptions: New prednisone 10 mg tablet 10 mg PO UD Qty: 54 RF: 0 Continued atorvastatin 10 mg Tablet 10 mg PO HS Qty: 0 RF: 0 ranitidine HCl [Zantac] 150 mg Tablet 150 mg PO Q12 Qty: 0 RF: 0 furosemide [Lasix] 20 mg Tablet 20 mg PO QAM Qty: 0 RF: 0 lorazepam 1 mg Tablet See Rx Instructions .ROUTE .COMPLEX Qty: 0 RF: 0 potassium chloride 20 mEq Tablet Extended Release 20 meq PO QAM Qty: 0 RF: 0 ascorbic acid (vitamin C) [Vitamin C] 500 mg Tablet,Chewable 500 mg PO DAILY Qty: 0 RF: 0 ondansetron HCl [Zofran] 4 mg Tablet 4 mg PO QID PRN (Reason: Nausea) Qty: 0 RF: 0 budesonide 0.5 mg/2 mL Suspension For Nebulization 1 vial NEB BID PRN (Reason: Shortness Of Breath Or Wheezing) 30 Days Qty: 120 RF: 3 montelukast 10 mg Tablet 10 mg PO DAILY Qty: 0 RF: 0 albuterol sulfate [Ventolin HFA] 90 mcg/actuation Hfa Aerosol Inhaler 2 puff INHALATION Q6H PRN (Reason: Shortness Of Breath Or Wheezing) RF: 0 cholecalciferol (vitamin D3) [Vitamin D3] 1,000 unit Capsule 1,000 unit PO QPM RF: 0 cholecalciferol (vitamin D3) [Vitamin D3] 1,000 unit Capsule 2,000 unit PO QAM RF: 0 tramadol 50 mg Tablet 50 mg PO Q6H PRN (Reason: Pain) RF: 0 ferrous sulfate 325 mg (65 mg iron) Tablet See Rx Instructions .ROUTE .COMPLEX RF: 0 sertraline [Zoloft] 100 mg Tablet 150 mg PO HS RF: 0 benzonatate [Tessalon Perles] 100 mg Capsule 100 mg PO BID PRN (Reason: Cough) RF: 0 docusate sodium [Dulcolax Stool Softener (dss)] 100 mg Capsule See Rx Instructions .ROUTE .COMPLEX RF: 0 djawbsxcycclka-xltnjxtkridi-MG [Dimetapp DM Cold-Cough (PE)] 1-2.5-5 mg/5 mL Solution 20 ml PO BID RF: 0 gvfybrkzlts-ysfojsycc-rdxsqxns [Trelegy Ellipta] 100-62.5-25 mcg Blister With Device 1 inh INHALATION DAILY RF: 0 pantoprazole 40 mg tablet,delayed release (DR/EC) 40 mg PO BID RF: 0 Changed ipratropium-albuterol 0.5 mg-3 mg(2.5 mg base)/3 mL Solution For Nebulization 3 ml INHALATION TID PRN (Reason: Shortness Of Breath Or Wheezing) Qty: 0 RF: 0 Discontinued nystatin 100,000 unit/mL Suspension 5 ml PO TID RF: 0 methylprednisolone [Medrol] 8 mg Tablet 3 tab PO QAM RF: 0 Sudafed PE 10 mg Tablet 10 mg PO BID RF: 0 Stand-Alone Forms: [facility]/Other Patient Handouts: Diabetes Meal Planning Discharge Orders: Discharge Order (Routine); Ordered 05/03/18 Ordered By: Bryan Davis Admission Data Admit Date/Time: 04/13/18 00:33 Attending Provider: Bryan Davis Admit Provider: Gamaliel Joseph Primary Care Provider: [place] Other Providers: Gamaliel Joseph ; Brandon Stephens Jeffrey A. ; Isra Wray Service: Telemetry Medical Other Interventions: Discharge Summary Assessment (RN) Last Done: 05/03/18 13:56 DC Date/Time DO NOT enter until pt leaves facility: 05/03/18 15:32
== END 2018-05-03 15:32 | disposition home health service (06) | DRG 166 ==
LOC: ED 19:29 → SUATTDRO 04-13 00:33 → 2N 04-13 00:33